=== PATIENT | male | born 1995 | race Caucasian/White ===

== ENCOUNTER 2017-10-17 11:17 | Emergency (ER) | payer BC, SELFPAY ==
[2017-10-17 11:17] VITALS: BP 141/94; PULSE 66; RESP 16; TEMP 36.6; O2SAT 98; BMI 19.8
--- NOTE | 2017-10-17 12:05 | ED.VISSUMM ---
- ER Visit Summary Date of Service: 10/17/17 Chief Complaint: [Abdominal pain and vomiting] History of Present Illness: The patient is a 22 M [who presents the emergency department with abdominal pain and vomiting it started yesterday. He has had about 10 episodes of vomiting. He has epigastric pain which feels like they are stomach acid sitting they are burning. His bowel movements have been normal although he has not had about bowel movement since this happened. No fevers or chills. He has been urinating normally. He does have a history of reflux and has had this but never so severe in the past and usually goes away on its own] Physical Examination: [] WN WD NAD PERRL EOMI MMM NECK supple and nontender, no masses RRR no murmur rub or gallop, no peripheral edema, symmetric radial pulses CTAB no respiratory distress ABDOMEN is soft gastric tenderness to palpation, normal bowel sounds, no distension, no rebound or guarding SKIN is warm and dry no rashes Alert and Oriented x3, CN II-XII in tact, no motor or sensory deficits, gait normal No lymphadenopathy Test Results: [] Emergency Department Course and Treatment: [She was given fluids Protonix and GI cocktail. Screening labs were obtained. Screening labs show T bili of 2.4. Patient is minimally improved after Protonix and GI cocktail. He was given morphine and felt much better. CTA was obtained because of the epigastric and right upper quadrant pain with a T bili of 2.4. Shows no evidence of biliary tract disease. Patient will be given Zofran Prilosec and sucralfate for home. He was given a referral to gastroenterology.] Treatment Plan: [] Disposition: [Discharge] Impression: [Gastritis] This note was generated with [employer] dictation software. It may contain incorrect words, spelling, and punctuation that were not noted in review of the chart prior to signing ED Disposition - Plan for ED Patient: Chief Complaint: Nausea/Vomiting Referrals: Laura Trammell MD [Primary Care Provider] -
[2017-10-17] MEDS: 0.9% Normal Saline 1,000 ML 1000 ML IV (12:47)
[2017-10-17] MEDS: Ondansetron 4 MG/2 ML Vial IV (12:47)
[2017-10-17 12:50] LABS: Absolute Lymphocyte Count 1.86 X10^3/ul (0.83-4.51); Absolute Neutrophil Count 6.5 X10^3/uL (2.0-7.7); Basophil# 0.01 X10^3/uL; Basophil% 0.1 % (0-1); Eosinophil# 0.02 X10^3/uL; Eosinophils% 0.2 % (0-5); Hematocrit 49.8 % (40-54); Hemoglobin 17.8 g/dl (13.0-16.5); Lymphocyte # 1.86 X10^3/ul (4.0); Lymphocyte % 19.9 % (19-41); Mean Corp Hgb Conc 35.7 g/gl (32-36); Mean Corpuscular Hgb 30.1 pg (27.0-32.0); Mean Corpuscular Volume 84.3 fL (80-94); Mean Platelet Vol. 9.1 fl (6.2-12.0); Monocyte# 0.94 X10^3/uL; Monocyte% 10.1 % (0-10); Neutrophil # 6.49 X10^3/uL (2.7-7.7); Neutrophil % 69.6 % (47-70); Platelet Count 238 K/mm3 (150-450); RBC Distribution Width CV 12.8 % (11.6-14.6); RBC Distribution Width SD 38.8 fl (35.1-43.9); Red Blood Count 5.91 M/mm3 (4.6-6.2); White Blood Count 9.3 K/mm3 (4.4-11.0)
[2017-10-17 12:51] LABS: POSITIVE COUNT NO; POSITIVE DIFFERENTIAL NO; POSITIVE MORPHOLOGY NO
[2017-10-17 13:00] LABS: ALB/GLOB Ratio 1.3 RATIO (0.9-2.4); AST(SGOT) 22 U/L (15-37); Alanine Aminotransfer ALT/SGPT 32 U/L (16-61); Alkaline Phosphatase 91 U/L (45-117); Anion Gap 9 (5-15); BUN 22 mg/dL (7-18); BUN/Creat Ratio 20.4 RATIO (10-20); Calcium,Total 9.8 mg/dL (8.5-10.1); Chloride 94 mmol/L (98-107); Creatinine, Serum 1.08 mg/dL (0.70-1.30); EST Glomerular Filtration Rate 91 mL/min (>60); Est Glom Filt Rate - Afr Amer 110 mL/min (>60); Estimated Creatinine Clearance 103.25 ml/min; Globulin 3.8 g/dL (2.2-4.2); Glucose 93 mg/dL (74-106); Lipase 93 U/L (73-393); Potassium 3.7 mmol/L (3.5-5.1); Protein, Total 8.8 g/dL (6.4-8.2); Sodium Level 134 mmol/L (136-145)
--- NOTE | 2017-10-17 13:12 | CT_ITS ---
STUDY: CT ABDOMEN AND PELVIS WITH CONTRAST REASON FOR EXAM: Male, 22 years old. Nausea/vomiting RADIATION DOSAGE (If Supplied By Facility): CTDIvol = ( 9.09 ) mGy, DLP = ( 318.50 ) mGycm TECHNIQUE: Transaxial images were obtained from the dome of the diaphragm to the symphysis pubis with oral contrast. 100 ml of Isovue 300 contrast was administered. Sagittal and coronal images were reconstructed. Individualized dose optimization techniques were used for this CT. COMPARISON: None. FINDINGS: The visualized lung bases are unremarkable. The visualized portions of the heart are within normal limits. Normal liver. Normal gallbladder and extrahepatic biliary system. Normal spleen. Normal pancreas. Normal bilateral adrenal glands. Normal right kidney. Normal left kidney. Normal visualized stomach. Normal small intestine. Normal colon. The appendix is visualized and appears normal. Appendix best seen on coronal image 59 Normal abdominal aorta. Normal inferior vena cava. Normal retroperitoneum. Normal urinary bladder. Normal abdominal wall. Normal osseous structures. CT/Abdomen/Pelvis W IV Cont ONLY IMPRESSION: No suspicious solid organ abnormality No CT evidence of an acute inflammatory process, normal appendix visualized. No free intraperitoneal fluid, air, or suspicious adenopathy Electronically Signed: Jose Plasencia MD at 14:13 EDT , Service support ,
[2017-10-17 13:37] VITALS: BP 135/80; PULSE 72; RESP 14; O2SAT 99
[2017-10-17] MEDS: Morphine 4 MG/ML Syringe IV (14:09)
[2017-10-17 15:03] VITALS: BP 137/80; PULSE 70; RESP 14; O2SAT 99
--- NOTE | 2017-10-17 15:14 | ED.DEP ---
ED Disposition - Plan for ED Patient: Chief Complaint: Nausea/Vomiting Instructions: ED PUD Vs Gastritis Prescriptions: Ondansetron [Zofran Odt] 4 mg PO Q8H PRN PRN #10 tablet PRN Reason: Nausea Omeprazole [Prilosec] 20 mg PO BID #14 capsule Sucralfate [Carafate] 1 gm PO 4X/DAY #500 ml Referrals: Rafi Aggarwal MD [NON-STAFF] - 1-2 Weeks Mook Moss MD [NON-STAFF] - 1-2 Weeks
[2017-10-17 15:35] VITALS: BP 126/78; PULSE 75; RESP 14; O2SAT 99
== END 2017-10-17 15:39 | disposition home or self-care (01) ==
PROVIDERS: Emergency Provider Emergency Medicine; Family Provider Pediatrics; PCP Pediatrics
DX: K29.70 Gastritis, unspecified, without bleeding (principal); K21.9 Gastro-esophageal reflux disease without esophagitis; J45.909 Unspecified asthma, uncomplicated; Z72.0 Tobacco use
CPT/HCPCS: 74177; 80053; 83690; 85025; 96365; 96374; 96375; 99283; Q9967; A4216; J2405; J3490

== ENCOUNTER 2018-10-11 14:04 | Emergency (ER) | payer BC, SELFPAY ==
[2018-10-11 14:05] VITALS: BP 126/73; PULSE 131; RESP 24; TEMP 36.6; O2SAT 96; BMI 21.7
--- NOTE | 2018-10-11 14:22 | ED.RN ---
PT ARRIVES TO ER IN [facility]IN[facility]. PT IS CURRENTLY BEING COOPERATIVE AND IS DOZING OFF INTERMITTENTLY. ORIENTED PT TO SURROUNDINGS, INFORMED PT OF PLAN OF CARE. PT IS RESTLESS. OFFICERS REMAIN AT BEDSIDE.
[2018-10-11] MEDS: 0.9% Normal Saline 1,000 ML 999 ML IV ×2 (14:28→15:25)
[2018-10-11] MEDS: LORazepam 2 MG/ML Syringe 1 MG IV (14:28)
[2018-10-11 14:34] LABS: Absolute Lymphocyte Count 1.88 X10^3/uL (0.83-4.51); Absolute Neutrophil Count 10.6 X10^3/uL (2.0-7.7); Basophil# 0.02 X10^3/uL; Basophil% 0.1 % (0-1); Eosinophil# 0.15 X10^3/uL; Eosinophils% 1.1 % (0-5); Hematocrit 43.5 % (40-54); Hemoglobin 14.4 g/dL (13.0-16.5); Lymphocyte # 1.88 X10^3/ul (4.0); Lymphocyte % 13.9 % (19-41); Mean Corp Hgb Conc 33.1 g/dL (32-36); Mean Corpuscular Hgb 29.1 pg (27.0-32.0); Mean Corpuscular Volume 88.1 fL (80-94); Monocyte# 0.79 X10^3/uL; Monocyte% 5.8 % (0-10); NRBC Flagged by Analyzer 0 % (0-5); Neutrophil # 10.59 X10^3/uL (2.7-7.7); Neutrophil % 78.1 % (47-70); Platelet Count 278 K/mm3 (150-450); RBC Distribution Width CV 12.5 % (11.6-14.6); RBC Distribution Width SD 40.4 fl (35.1-43.9); Red Blood Count 4.94 M/mm3 (4.6-6.2); White Blood Count 13.6 K/mm3 (4.4-11.0)
[2018-10-11 15:04] LABS: Anion Gap 19 (5-15); BUN 19 mg/dL (7-18); Calcium,Total 9.2 mg/dL (8.5-10.1); Chloride 107 mmol/L (98-107); Creatinine, Serum 1.58 mg/dL (0.70-1.30); EST Glomerular Filtration Rate 58 mL/min (>60); Est Glom Filt Rate - Afr Amer 70 mL/min (>60); Estimated Creatinine Clearance 79.77 ml/min; Glucose 110 mg/dL (74-106); Potassium 3.7 mmol/L (3.5-5.1); Sodium Level 140 mmol/L (136-145)
[2018-10-11 15:09] LABS: Alcohol, Blood (Medical)-Serum < 3.0 mg/dL
[2018-10-11 15:26] VITALS: BP 117/52; PULSE 105; RESP 17; O2SAT 95
--- NOTE | 2018-10-11 15:59 | ED.DCSUM_ITS ---
- ER Visit Summary Date of Service: 10/11/18 Chief Complaint: Drug abuse History of Present Illness: The patient is a [address] Trammell. He reports that he snorted a substance that he thought was heroin at approximately noon. Mother reports that he has been through rehab 3 times. The last of these was in June in [place]. He has not used for the past 2 to 3 weeks. Mother reports the patient was very agitated and fighting and she called EMS. Patient was very combative on their arrival and multiple police officers arrived to help restrain him. He was given 5 mg of Haldol IM without improvement. He then had an IV placed was given 2.5 mg of Versed IV and is now resting more comfortably. Review of systems: General: No fever, chills, cold sweats. Cardiovascular: No chest pain, palpitations. Respiratory: No cough, shortness of breath, dyspnea on exertion. Gastrointestinal: No abdominal pain, nausea, vomiting, diarrhea, melena, or hematochezia. Genitourinary: No dysuria, frequency, hematuria. Skin: No rash. Neuro: No headache, numbness, weakness. Physical Examination: Vitals: 97.9, 126/73, 131, 24, 96% on room air which is not hypoxic. General: Well-nourished and well-developed. Diaphoretic. Head: Normocephalic atraumatic. Neck: Supple, no lymphadenopathy. No JVD. Nontender. Cardiovascular: Tachycardic regular rhythm. No murmurs. Respiratory: No respiratory distress. Clear to auscultation bilaterally. Abdominal: Soft, nontender, nondistended, normal bowel sounds. No guarding, rebound, or peritoneal signs. Back: Nontender. Extremities: Nontender, no edema. No track duke. Skin: Normal color, no rash. Neurologic: Alert and oriented ? 2. Clearly intoxicated. Moves all extremities well. Test Results: CBC shows a white count of 13.6 with 78 segmented neutrophils and 14 lymphocytes. Chem-7 shows a bicarb of 14, BUN of 19, creatinine 1.58, glucose of 110. Alcohol is negative. Patient has not been able to give a urine sample for a tox screen yet. Emergency Department Course and Treatment: Patient was given a milligram of Ativan IV prior to the Versed wearing off. He was given 2 L of normal saline. His heart rate has decreased from the 130s down to 105. He is resting comfortably. I suspect that the patient's white count and low bicarbonate are a result of a stress reaction from the altercation with police and all of the fighting. Treatment Plan: Patient will be observed while whatever substance he snorted wears off. This clearly was not an opiate. I suspected that it may have been a bath salt. He will be discharged with instructions to follow-up with 180 as soon as possible. Disposition: Pending Impression: 1. Drug abuse. This note was generated with [employer] dictation software. It may contain incorrect words, spelling, and punctuation that were not noted in review of the chart prior to signing ED Disposition - Plan for ED Patient: Instructions: Drug Abuse Referrals: [facility] [STAFF PHYSICIAN] - As soon as possible
[2018-10-11 16:19] VITALS: BP 116/58; PULSE 94; RESP 18; O2SAT 97
[2018-10-11 18:06] LABS: Anion Gap 6 (5-15); BUN 20 mg/dL (7-18); BUN/Creat Ratio 16.1 RATIO (10-20); Calcium,Total 8.3 mg/dL (8.5-10.1); Chloride 109 mmol/L (98-107); Creatinine, Serum 1.24 mg/dL (0.70-1.30); EST Glomerular Filtration Rate 77 mL/min (>60); Est Glom Filt Rate - Afr Amer 93 mL/min (>60); Estimated Creatinine Clearance 101.64 ml/min; Glucose 82 mg/dL (74-106); Potassium 3.8 mmol/L (3.5-5.1); Sodium Level 139 mmol/L (136-145)
[2018-10-11 19:01] VITALS: BP 135/99; PULSE 112; RESP 19; O2SAT 98
[2018-10-11 19:33] LABS: Amphetamine Urine VISTA POSITIVE (<1000 ng/mL); Barbiturate Urine VISTA NEGATIVE (< 200 ng/mL); Benzodiazepine Urine VISTA POSITIVE (< 200 ng/mL); Cocaine Urine VISTA NEGATIVE (< 300 ng/mL); Ecstacy Urine VISTA NEGATIVE (< 500 ng/mL); Methadone Urine VISTA NEGATIVE (< 300 ng/mL); PCP Urine VISTA NEGATIVE (< 25 ng/mL); THC Urine VISTA POSITIVE (< 50 ng/mL); Vista UDS pH Range 5
[2018-10-11 20:12] VITALS: BP 147/86; PULSE 99; RESP 17; O2SAT 100
[2018-10-11 20:43] VITALS: BP 147/96; PULSE 96; RESP 18; O2SAT 98
--- NOTE | 2018-10-11 20:44 | ED.RN ---
PT AND FAMILY GIVEN WRITTEN AND VERBAL DISCHARGE INSTRUCTIONS. PT VERBALIZES UNDERSTANDING AND DENIES ANY FURTHER QUESTIONS. PT ENCOURAGED TO STOP DOING DRUGS. PT TO FOLLOW UP WITH 180. IV DD/C AND COVERED WITH 2X2 GAUZE AND PAPER TAPE. PT AMBULATES OUT OF DEPT AFTER RECEIVING PAPER SCRUB TOP.
== END 2018-10-11 20:47 | disposition home or self-care (01) ==
PROVIDERS: Emergency Medicine; Emergency Provider Emergency Medicine; Family Provider Physician Assistant; PCP Physician Assistant
DX: F19.10 Other psychoactive substance abuse, uncomplicated (principal); Z72.0 Tobacco use; J45.909 Unspecified asthma, uncomplicated
CPT/HCPCS: 80048; 80307; 80320; 85025; 96361; 96374; 99285; J7030; A4216; G0480

== ENCOUNTER 2019-10-12 10:20 | Emergency (ER) | payer SELFPAY ==
[2019-10-12 10:21] VITALS: BP 126/76; PULSE 100; RESP 18; TEMP 36.3; O2SAT 97; BMI 22.1
--- NOTE | 2019-10-12 10:40 | ED.DCSUM_ITS ---
History of Present Illness Chief Complaint: Dental Informant: Patient Narrative: Presents with dental pain which he has had for about a month. He was initially seen by his dentist and placed on Augmentin 1 month ago. He states that his tooth did improve but he never made a follow-up appointment to have his crown fixed. He stated over the last 2 days that his tooth is now hurting more and he has some facial swelling. He did not call his dentist. He has not had a fever. He has no trouble swallowing or breathing. Past Medical History - Allergies and Home Meds Allergies/Adverse Reactions: Allergies amoxicillin trihydrate [From Augmentin] Allergy (Verified 10/12/19 10:22) Rash potassium clavulanate [From Augmentin] Allergy (Verified 10/12/19 10:22) Rash Primary Care Physician: Stacy Gomez PA [Primary Care Provider] - Prior records reviewed: Yes Surgical History: noncontributory Smoking Status: Current every day smoker Alcohol: None Drugs: None Review of Systems General: Denies: Chills, Fever Eyes: Denies: Visual changes - bilaterally, Diplopia ENT: Reports: - - Dental pain is left-sided Cardiovascular: Denies: Chest pain Respiratory: Denies: Dyspnea Musculoskeletal: Denies: Myalgias, Arthralgias Skin: Reports: - - Swelling on the left side of the jaw adjacent to the mandible. Neurological: Denies: Headache Psych: Denies: Depression Physical Exam Vital Signs/Narrative: Vital Signs Temp Pulse Resp BP Pulse Ox 10/12/19 10:21 97.4 F L 100 18 126/76 H 97 General: Well nourished, No Acute Distress Head: Normocephalic, - - Swelling noted to the left side of the jaw adjacent to the mandible. ENT: - - Question tenderness of tooth #14. There is an area where crown was previously placed which is missing. There is no abscess surrounding the gums. Buccal mucosa is normal with exception of some mild swelling. Cardiovascular: Regular rate, Regular rhythm Respiratory: No distress Neurological: Alert, Oriented x3 Psychological: Normal affect Diagnostic/Tx/Re-eval - Medical Decision Making Patient presents with left-sided facial swelling. He does have what appears to be a dental infection where his crown is missing. He will be started on Augmentin again since he stated this helped him. He is to follow-up with his dentist so that he can get this issue resolved. He is given return precautions. Patient stable for discharge. ED Disposition - Plan for ED Patient: Disposition: Home or Assisted Living Instructions: Dental Abscess Prescriptions: Amox/Clavulanate Tablet [Augmentin Tablet] 875 mg PO Q12H #20 tab Prescription Printed Hydrocodone Bitart/Apap 5-325 [[place] 5MG-325MG] 1 tab PO Q4H PRN PRN 2 Days #7 tab PRN Reason: Pain Prescription Printed Referrals: Stacy Gomez PA [Primary Care Provider] -
[2019-10-12] MEDS: Amox/Clavulanate 875 MG Tablet PO (11:36)
[2019-10-12] MEDS: HYDROcodone Bitartrate/Apap 5/325 Tablet PO (11:36)
[2019-10-12 11:38] VITALS: PULSE 87; RESP 16; O2SAT 99
== END 2019-10-12 11:41 | disposition home or self-care (01) ==
LOC: ED 11:34
PROVIDERS: Emergency Provider Student in an Organized Health Care Education/Training Program; PCP Physician Assistant
DX: K04.7 Periapical abscess without sinus (principal); F17.200 Nicotine dependence, unspecified, uncomplicated
CPT/HCPCS: 99282

== ENCOUNTER 2020-05-21 15:37 | Emergency (ER) | payer BC, SELFPAY ==
[2020-05-21 15:39] VITALS: BP 124/88; PULSE 119; RESP 16; TEMP 36.8; O2SAT 97; BMI 20.5
--- NOTE | 2020-05-21 15:58 | ED.VISSUMM ---
- ER Visit Summary Date of Service: 05/21/20 Chief Complaint: Requesting detox History of Present Illness: The patient is a 24 M presenting requesting detox from fentanyl. Patient states he is using 1 g of fentanyl per day. He states he snorts fentanyl. He denies IV drug use. He states he also uses methamphetamine. His last use of fentanyl was about 30 hours ago. His last meth use was 5 days ago. He feels shaky with body aches. He has diarrhea. He denies vomiting. Denies fever or recent illness. Denies other complaints. Physical Examination: Vitals are stable. Patient is afebrile. Alert no acute distress. HEENT exam is unremarkable. Neck is supple. Lungs are clear and equal bilaterally. Heart is regular tachycardic Abdomen is soft nontender nondistended. No guarding or rebound Extremities are unremarkable. Skin is warm and dry. No focal neurologic deficit. Remainder of exam is unremarkable. Emergency Department Course and Treatment: Patient was given Zofran. Chemistries are unremarkable. Alcohol negative. Tox positive for cannabinoids. Covid is negative. Will discuss with hospitalist for admission. Just prior to admission, patient eloped from the emergency department. I attempted to call him and his phone number listed was inaccurate. Disposition: Elopement Impression: Opiate dependence, polysubstance abuse This note was generated with [employer] dictation software. It may contain incorrect words, spelling, and punctuation that were not noted in review of the chart prior to signing ED Disposition - Plan for ED Patient: Referrals: Stacy Gomez PA [Primary Care Provider] -
[2020-05-21] MEDS: Ondansetron ODT 4 MG Tablet 8 MG PO (16:30)
--- NOTE | 2020-05-21 16:35 | PCM.HP.STD ---
Problem List (1) Opiate addiction Status: Acute (2) Tobacco abuse Status: Acute (3) Opiate withdrawal Status: Acute History of Present Illness Date of Admission: 05/21/20 Mr. Pozo is a 24 year old WM with a past medical history of opiate addiction and tobacco abuse presented to emergency department [facility] on 05/21/2020 requesting detox from fentanyl. The patient reports he uses approximately 1 g of fentanyl per day intranasally. He denies any IV drug use. He states he also uses methamphetamines. His last fentanyl use was approximately a day and a half ago and his last meth use was approximately 5 days ago. He is complaining that he feels shaky and has body aches. He had some diarrhea. He denies vomiting. Upon review of his vital signs they reveal normothermia with mild tachycardia and mild diastolic hypertension respiratory rate and oxygen saturations are within normal limits on room air. Past Medical History Allergies amoxicillin trihydrate [From Augmentin] Allergy (Verified 05/21/20 16:12) Rash potassium clavulanate [From Augmentin] Allergy (Verified 05/21/20 16:12) Rash Home Medications: Ambulatory Orders Medication Instructions Recorded Venlafaxine HCl [Effexor] 20 mg PO DAILY 05/21/20 Surgical History: noncontributory Smoking Status: Current every day smoker Tobacco Use: Cigarettes - Physical Exam Vitals/I&O's: Vital Signs Temp Pulse Resp BP Pulse Ox 98.2 F 119 H 16 124/88 H 97 05/21/20 15:39 05/21/20 15:39 05/21/20 15:39 05/21/20 15:39 05/21/20 15:39 Oxygen Delivery Method Room Air Weight: 72.575 kg Body Mass Index (BMI) 20.5 Laboratory Results 05/21/20 16:15: Urine Opiates Screen Pending, Urine Methadone Screen Pending, Ur Barbiturates Screen Pending, Ur Phencyclidine Scrn Pending, Ur Amphetamines Screen Pending, U Methamphetamin-MDMA Pending, U Benzodiazepines Scrn Pending, Urine Cocaine Screen Pending, U Cannabinoids Screen Pending, Ur Drug Screen Comment 05/21/20 16:20: Sodium Pending, Potassium Pending, Chloride Pending, Carbon Dioxide Pending, Anion Gap Pending, BUN Pending, Creatinine Pending, Est GFR (MDRD) Af Amer Pending, Est GFR (MDRD) Non-Af Pending, BUN/Creatinine Ratio Pending, Glucose Pending, Calcium Pending, Total Bilirubin Pending, AST Pending, ALT Pending, Alkaline Phosphatase Pending, Total Protein Pending, Albumin Pending 05/21/20 16:20: Ethyl Alcohol Pending Assessment/Plan All Active Problems Opiate addiction (Acute) Tobacco abuse (Acute) Opiate withdrawal (Acute) Acute opiate withdrawal -Suboxone taper -Supportive medication -180 consultation Polysubstance abuse -See above for opiates -Last meth use was approximately 5 days ago -Review of his previous tox screens reveal positivity for benzodiazepines and THC as well as meth and opiates Tobacco abuse -Nicotine patch 21 mcg daily -Recommend cessation DVT prophylaxis -Early ambulation CODE STATUS -Full code
[2020-05-21 16:56] LABS: ALB/GLOB Ratio 1.2 RATIO (0.9-2.4); AST(SGOT) 19 U/L (15-37); Alanine Aminotransfer ALT/SGPT 25 U/L (16-61); Alkaline Phosphatase 100 U/L (45-117); Anion Gap 8 (5-15); BUN 19 mg/dL (7-18); BUN/Creat Ratio 20.7 RATIO (10-20); Calcium,Total 9.1 mg/dL (8.5-10.1); Chloride 108 mmol/L (98-107); Creatinine, Serum 0.92 mg/dL (0.70-1.30); EST Glomerular Filtration Rate 107 mL/min (>60); Est Glom Filt Rate - Afr Amer 130 mL/min (>60); Estimated Creatinine Clearance 127.09 ml/min; Globulin 3.4 g/dL (2.2-4.2); Glucose 112 mg/dL (74-106); Potassium 4.3 mmol/L (3.5-5.1); Protein, Total 7.4 g/dL (6.4-8.2); Sodium Level 141 mmol/L (136-145)
[2020-05-21 17:04] LABS: Alcohol, Blood (Medical)-Serum < 3.0 mg/dL
[2020-05-21 17:05] LABS: Amphetamine Urine VISTA NEGATIVE (<1000 ng/mL); Barbiturate Urine VISTA NEGATIVE (< 200 ng/mL); Benzodiazepine Urine VISTA NEGATIVE (< 200 ng/mL); Cocaine Urine VISTA NEGATIVE (< 300 ng/mL); Ecstacy Urine VISTA NEGATIVE (< 500 ng/mL); Methadone Urine VISTA NEGATIVE (< 300 ng/mL); PCP Urine VISTA NEGATIVE (< 25 ng/mL); THC Urine VISTA POSITIVE (< 50 ng/mL); Vista UDS pH Range 6
== END 2020-05-21 17:35 | disposition home or self-care (01) ==
LOC: ED 16:23
PROVIDERS: Emergency Provider Emergency Medicine; PCP Physician Assistant
DX: F11.20 Opioid dependence, uncomplicated (principal); F15.90 Other stimulant use, unspecified, uncomplicated
CPT/HCPCS: 36415; 80053; 80307; 82077; 87426; 99281

== ENCOUNTER 2021-04-19 12:42 | Inpatient (IN) | payer BC, SELFPAY ==
[2021-04-19 12:43] VITALS: BP 152/105; PULSE 105; RESP 16; TEMP 36.6; O2SAT 100; BMI 23.7
--- NOTE | 2021-04-19 13:05 | EDS_ITS ---
HPI History of Present Illness Chief Complaint: Substance Abuse Informant: patient Onset/Context/Timing Onset: - (5 to 6 years) Context: Gradual Onset Timing: Continuous Worsened by: Nothing Relieved by: Nothing Associated Symptoms Associated Symptoms: Positive for vomiting* and palpatations; Negative for diarrhea*, fever*, rash*, seizure, tremor, suicidal ideation and homicidal ideation Narrative Narrative: Patient presents requesting detox from heroin and fentanyl. Patient states he snorts approximately 1/2 g/day. Patient states his last use was yesterday. Patient states he has been using for the past 5 to 6 years. Patient states he has never been through detox before. Patient admits to some nausea and vomiting. Patient denies any fevers. Patient denies any shortness of breath. Patient denies any seizures or tremors. Patient admits to some heart palpitations. Patient denies any suicidal homicidal ideations. [facility] Medical History Asthma Tobacco abuse Medical History no medical history Allergy/AdvReac Type Severity Reaction Status Date / Time amoxicillin trihydrate Allergy Rash Verified 04/19/21 12:46 [From Augmentin] potassium clavulanate Allergy Rash Verified 04/19/21 12:46 [From Augmentin] Family History (Updated 04/19/21 @ 13:[address] Radha Gabriel DO) Brother Hemophilia Father Diabetes Surgical History History of tonsillectomy Surgical History no surgical history no surgical history Social History (Updated 04/19/21 @ 13:[address] Radha Gabriel DO) Smoking Status: Current every day smoker tobacco type: cigarettes alcohol intake: current alcohol intake frequency: holidays/special occasions only substance use type: marijuana, heroin, opiates and other details: Fentanyl ROS ROS ED Constitutional Constitutional ED: Denies chills or fever(s) Eyes Eyes: Denies blurry vision or change in vision ENT ENT ED: Denies rhinorrhea or sore throat Cardiovascular Cardiovascular: Reports palpitations; Denies chest pain Respiratory/Chest Respiratory/Chest: Reports dyspnea; Denies cough Gastrointestinal Gastrointestinal: Reports abdominal pain, nausea and vomiting; Denies diarrhea Genitourinary Genitourinary ED: Denies dysuria or hematuria Musculoskeletal Musculoskeletal: Reports back pain; Denies neck pain Integumentary Denies abscess or rash Neurologic Neurologic: Reports headache(s); Denies weakness Allergic/Immunologic Allergic/Immunologic ED: Denies mouth swelling or urticaria EXAM Physical Exam Const Vital Signs: 04/19/21 12:43 Temperature 97.9 F Temperature Source Temporal Pulse Rate 105 H Respiratory Rate 16 Blood Pressure 152/105 H Blood Pressure Mean 120 Pulse Ox 100 Oxygen Delivery Method Room Air Positive well nourished and well developed General Appearance ED: well developed HEENT Reports moist mucous membranes Neck supple and no JVD Resp normal respiratory effort and clear to auscultation bilaterally Cardio regular rate, regular rhythm and no murmurs GI normal to inspection, nondistended, normoactive bowel sounds, soft to palpation and non-tender Palpation: soft Extremity normal to inspection General Extremety ED: Negative for edema or tenderness General Extremity: Negative for edema Neuro oriented x3, CN's II-XII intact bilaterally and no sensory deficits noted Sensorium / Orientation: alert Motor Exam: strength 5/5 throughout Psych mental status grossly normal Skin no rashes or lesions noted MDM MDM MDM Narrative Medical decision making narrative: Basic labs were obtained and were essentially within normal limits. Urine toxicology screen was positive for cannabinoids. Case was discussed with the hospitalist. She will be down to evaluate the patient for admission. Patient understands and is agreeable with the plan. All questions were answered. Lab Data Labs: Laboratory Results - last 24 hr 04/19/21 04/19/21 13:25 13:25 WBC 8.4 RBC 5.28 Hgb 14.9 Hct 44.7 MCV 84.7 MCH 28.2 MCHC 33.3 RDW Std Deviation 42.4 RDW Coeff of Cecilio 13.7 Plt Count 365 MPV 8.9 Immature Gran % (Auto) 0.400 Neut % (Auto) 77.6 H Lymph % (Auto) 15.2 L Newton % (Auto) 5.6 Eos % (Auto) 1.0 Baso % (Auto) 0.2 Absolute Neuts (auto) 6.5 Absolute Lymphs (auto) 1.27 Nucleated RBC % 0 Ur Drug Screen Comment Treatment and Re-Evaluation Vital Sign Attestation:: Vital signs were reviewed prior to admission. They are stable. Discharge Plan Dx/Rx/DC Orders Clinical Impression: Opiate withdrawal Disposition Disposition: Acute Care Hospital [facility] Discharge Date/Time: 04/19/21 15:14
--- NOTE | 2021-04-19 13:10 | CM.ED ---
DARIN Note Referral Source: Case Find Referral Reason: TAMARA WEBSTER met with patient. He reports he is interested in detox through [facility]. Patient has been using fentanyl/heroin and last use was yesterday. Patient used 1 gram yesterday. Patient is in a sober living house through [facility] and got there yesterday. Patient plans to return to [facility] from detox. Patient said that he had a counselor at [facility] but has not seen them for awhile.. Patient verbalized understanding. DARIN called [facility] and advised her of patient's admission to [facility] Plan: [facility] Admission Jenise JOHNSON
--- NOTE | 2021-04-19 13:20 | NURSING ---
DR VIJI COREY
--- NOTE | 2021-04-19 13:22 | HP.PCM.HOS_ITS ---
HPI - General General Date of Admission: 04/19/21 Date of Service: 04/19/21 Chief Complaint: Acute opiate withdrawal HPI Narrative BRYAN LUNDBERG, is a 25 M who presented to with hospital on 04/19/2021 with a request for opiate detox. The patient indicates that he snorts fentanyl and heroin and uses approximately 1/2 g daily. His last use was yesterday morning. He states has been using for approximately 15 years and went through detox in 2017 at which time he had about 5 to 6 months of sobriety. He did inpatient rehab at that time. He currently is having some loose stools, anxiety, myalgias, nausea, mild tachycardia and elevated blood pressure. He states he is never used IV drugs. He also admits to a smoking about half a pack of cigarettes a daily and using marijuana periodically. His vital signs in emergency department show that he was afebrile with mild tachycardia and that he had elevated blood pressure. His respiratory rate was normal and his oxygen saturation was 100% on room air. His CBC was unremarkable. His UA was unremarkable. His CMP and tox screen were pending on admission. Given his request for detox the emergency department physician requested admission and he will be admitted to an [place] [address] for opiate detox. [facility] Medical History (Updated 04/19/21 @ 13:[address] Radha Gabriel DO) Asthma Tobacco abuse Medical History no medical history Allergy/AdvReac Type Severity Reaction Status Date / Time amoxicillin trihydrate Allergy Rash Verified 04/19/21 12:46 [From Augmentin] potassium clavulanate Allergy Rash Verified 04/19/21 12:46 [From Augmentin] Family History (Updated 04/19/21 @ 13:[address] Radha Gabriel DO) Brother Hemophilia Father Diabetes Surgical History (Updated 04/19/21 @ 13:[address] Radha Gabriel DO) History of tonsillectomy Surgical History no surgical history Social History (Updated 04/19/21 @ 13:[address] Radha Gabriel DO) Smoking Status: Current every day smoker tobacco type: cigarettes Smoking packs per day: 0.5 Smoking cigarettes per day: 10.0 alcohol intake: current alcohol intake frequency: holidays/special occasions only substance use type: marijuana, heroin, opiates and other details: Fentanyl ROS Constitutional Constitutional: Reports chills and malaise; Denies anorexia, change in weight, fatigue, fever(s), night sweats, weakness or other Eyes Eyes: Denies blurry vision, change in eye color, change in vision, discharge from eye(s), double vision, erythema, eye pain, loss of vision or other ENT HEENT: Denies abnormal hearing, dysphagia, ear pain, epistaxis, headache(s), hearing loss, nasal congestion, nasal discharge, post nasal drip, sinus pressure, sore throat or other Cardiovascular Cardiovascular: Denies chest pain, claudication, dyspnea on exertion, edema, lightheadedness, orthopnea, palpitations, paroxysmal nocturnal dyspnea, rapid heart rate, syncope or other Respiratory/Chest Respiratory/Chest: Denies cough, dyspnea, excessive phlegm production, hemoptysis, productive cough, shortness of breath at rest, shortness of breath with exertion, wheezing or other Gastrointestinal Gastrointestinal: Reports loose stools and nausea; Denies abdominal pain, coffee ground emesis, constipation, diarrhea, dyspepsia, hematemesis, hematochezia, melena, vomiting or other Genitourinary Genitourinary: Denies burning urination, difficulty urinating, dysuria, hematuria, nocturia, urinary frequency, urinary hesitancy, urinary incontinence, urinary urgency or other Musculoskeletal Musculoskeletal: Reports myalgias; Denies arthralgias, back pain, joint pain, joint stiffness, joint swelling, neck pain or other Neurologic Neurologic: Denies abnormal gait, abnormal speech, confusion, disequilibrium, di zziness, focal weakness, headache(s), numbness, paresthesias, seizure-like activity, seizures, syncope, tingling, tremor(s) or other Psychiatric Psychiatric: Reports anxiety; Denies depression, homicidal ideation, suicidal ideation or other Endocrine Endocrinology: Denies change in body appearance, cold intolerance, excessive sweating, heat intolerance, polydipsia, polyuria or other Hematologic/Lymphatic Hematologic/Lymphatic: Denies anemia, easy bleeding, easy bruising, lymphadenopathy or other Allergic/Immunologic Allergic/Immunologic: Denies rhinitis, hives, eczemia, asthma or other Vital Signs Vital Signs Vital Signs: 04/19/21 12:43 Temperature 97.9 F Temperature Source Temporal Pulse Rate 105 H Respiratory Rate 16 Blood Pressure 152/105 H Blood Pressure Mean 120 Pulse Ox 100 Oxygen Delivery Method Room Air Weight Weight: 81.647 kg Body Mass Index (BMI) 23.7 Physical Exam Const alert, oriented x3, no apparent distress, average body habitus, healthy appearing and well nourished Constitutional Narrative: Very pleasant young white male lying in bed, patient appears nontoxic General Appearance: cooperative HEENT normocephalic, head/scalp atraumatic, hearing grossly normal bilaterally and moist oral mucous membranes Resp normal respiratory effort, no retractions, no use of accessory muscles and clear to auscultation bilaterally Auscultation: Negative for crackles, rales, rhonchi or wheezes Cardio regular rhythm, S1 normal heart sound, S2 normal heart sound, no murmurs, no rub, no gallops, no clicks and no JVD Cardio Narrative: Mild tachycardia GI normal to inspection, nondistended, normoactive bowel sounds, soft to palpation, non-tender and non-distended Extremity no clubbing, cyanosis or edema Neuro oriented x3, CN's II-XII intact bilaterally and moves all extremities Sensorium / Orientation: awake and alert Speech: speech normal Motor Exam: strength 5/5 throughout Psych affect normal Psych Narrative: Very pleasant Results Lab / Micro Data Attestation: I reviewed the patient's lab results. Assessment & Plan Assessment/Plan (1) Opiate withdrawal: (2) Opiate addiction: (3) Tobacco abuse: (4) Elevated blood pressure reading: (5) Tachycardia: PLAN: Acute opiate withdrawal -Patient has about a 15-year history of intranasal opiate use -Patient did have a period of sobriety after a bout of 5-month rehab stint in 2017 -This is approximately 1/2 g of fentanyl/heroin daily -Last use was yesterday morning 04/18/2021 -start buprenorphine taper -Supportive medications -180 consultation Elevated blood pressure -Suspect related to acute withdrawal -Continue to monitor Tachycardia -Suspect related to create withdrawal -Continue to monitor Tobacco abuse -Patient smokes 1/2 to 1 pack of cigarettes daily -Nicotine replacement has been ordered -Recommend cessation DVT prophylaxis -Early ambulation protocol -Low risk CODE STATUS -Full code Charges/Coding Visit Charges Inpatient E&M: 39503 Init Hosp L2
[2021-04-19 13:31] LABS: Bacteria 0 SEEN /hpf (None Seen); Mucous, Urine 0 SEEN /hpf (<or=2+); Red Blood Cells-Urine 0 SEEN /hpf (0-5); Squamous Epithelial Cells - UA 0 SEEN /hpf (0-5); White Blood Cells 0 SEEN /hpf (0-5)
[2021-04-19 13:33] LABS: Absolute Lymphocyte Count 1.27 X10^3/uL (0.83-4.51); Absolute Neutrophil Count 6.5 X10^3/uL (2.0-7.7); Basophil# 0.02 X10^3/uL; Basophil% 0.2 % (0-1); Color, Urine Yellow (Yellow); Eosinophil# 0.08 X10^3/uL; Glucose, Dipstick Normal (Normal); Hematocrit 44.7 % (40-54); Hemoglobin 14.9 g/dL (13.0-16.5); Ketone-Dipstick Negative (Negative); Leukocyte Esterase-Dipstick Negative /ul (Negative); Lymphocyte # 1.27 X10^3/ul (0.83-4.51); Lymphocyte % 15.2 % (19-41); Mean Corp Hgb Conc 33.3 g/dL (32-36); Mean Corpuscular Hgb 28.2 pg (27.0-32.0); Mean Corpuscular Volume 84.7 fL (80-94); Mean Platelet Vol. 8.9 fl (6.2-12.0); Monocyte# 0.47 X10^3/uL; Monocyte% 5.6 % (0-10); NRBC Flagged by Analyzer 0 % (0-5); Neutrophil % 77.6 % (47-70); Nitrite-Dipstick Negative (Negative); Occult Blood-Urine Negative /ul (Negative); Platelet Count 365 K/mm3 (150-450); Protein-Dipstick Negative (Negative); RBC Distribution Width CV 13.7 % (11.6-14.6); RBC Distribution Width SD 42.4 fl (35.1-43.9); Red Blood Count 5.28 M/mm3 (4.6-6.2); Urine Bilirubin Dipstick Negative (Negative); Urine Clarity Cloudy (Clear); Urine Urobilinogen Normal (Normal); White Blood Count 8.4 K/mm3 (4.4-11.0)
--- NOTE | 2021-04-19 13:43 | NURSING ---
MED SURG VIJI OPIATE WITHDRAWAL
[2021-04-19 13:44] LABS: Amorphous Sediment 2+
[2021-04-19 13:53] LABS: ALB/GLOB Ratio 1.1 RATIO (0.9-2.4); AST(SGOT) 19 U/L (15-37); Alanine Aminotransfer ALT/SGPT 27 U/L (16-61); Albumin, Serum 4.2 g/dL (3.2-5.0); Alkaline Phosphatase 92 U/L (45-117); Anion Gap 4 (5-15); BUN 15 mg/dL (7-18); BUN/Creat Ratio 16.7 RATIO (10-20); Calcium,Total 9.1 mg/dL (8.5-10.1); Chloride 107 mmol/L (98-107); EST Glomerular Filtration Rate 109 mL/min (>60); Est Glom Filt Rate - Afr Amer 132 mL/min (>60); Globulin 3.8 g/dL (2.2-4.2); Glucose 107 mg/dL (74-106); Potassium 4.2 mmol/L (3.5-5.1); Sodium Level 137 mmol/L (136-145)
[2021-04-19 13:56] LABS: Alcohol, Blood (Medical)-Serum < 3.0 mg/dL
[2021-04-19 13:58] LABS: Amphetamine Urine VISTA NEGATIVE (<1000 ng/mL); Barbiturate Urine VISTA NEGATIVE (< 200 ng/mL); Benzodiazepine Urine VISTA NEGATIVE (< 200 ng/mL); Cocaine Urine VISTA NEGATIVE (< 300 ng/mL); Ecstacy Urine VISTA NEGATIVE (< 500 ng/mL); Methadone Urine VISTA NEGATIVE (< 300 ng/mL); PCP Urine VISTA NEGATIVE (< 25 ng/mL); THC Urine VISTA POSITIVE (< 50 ng/mL); Vista UDS pH Range 7
[2021-04-19 15:14] VITALS: BP 132/70; PULSE 74; RESP 15; TEMP 36.6; O2SAT 99
[2021-04-19 15:18] VITALS: BMI 22.1
[2021-04-19 16:00] VITALS: BP 143/78; PULSE 71; RESP 18; TEMP 36.7; O2SAT 98
[2021-04-19] MEDS: Methocarbamol 750 MG Tablet 1500 MG PO (16:29)
[2021-04-19] MEDS: Gabapentin 300 MG Capsule PO (16:29)
[2021-04-19] MEDS: cloNIDine HCl 0.1 MG Tablet PO (16:29)
[2021-04-19] MEDS: Buprenorphine HCl 2 MG TAB.SUBL SL (16:42)
[2021-04-19 19:51] VITALS: BP 150/82; PULSE 92; RESP 18; TEMP 36.9; O2SAT 99
[2021-04-19] MEDS: hydrOXYzine PAM 25 MG Capsule 50 MG PO (22:28)
[2021-04-19] MEDS: traZODone 100 MG Tablet PO (22:28)
[2021-04-20] VITALS: BP 128/63; PULSE 104; RESP 18; TEMP 36.6; O2SAT 98
[2021-04-20] MEDS: Buprenorphine HCl 2 MG TAB.SUBL SL ×4 (00:09→23:55)
[2021-04-20] MEDS: Methocarbamol 750 MG Tablet 1500 MG PO ×3 (00:09→20:51)
[2021-04-20 04:00] VITALS: BP 127/71; PULSE 94; RESP 18; TEMP 37.2; O2SAT 99
[2021-04-20] MEDS: cloNIDine HCl 0.1 MG Tablet PO ×2 (04:08→13:13)
--- NOTE | 2021-04-20 07:33 | PCM.PN.HOSP ---
Subjective Subjective Patient is a 25-year-old gentleman with history of opioid dependence presenting with acute opioid withdrawal Objective Data Objective Data Vital Signs: Vital Signs Temp Pulse Resp BP Pulse Ox 98.9 F 94 18 127/71 H 99 04/20/21 04:00 04/20/21 04:00 04/20/21 04:00 04/20/21 04:00 04/20/21 04:00 Oxygen Delivery Method Room Air Weight: 78.018 kg Body Mass Index (BMI) 22.1 Intake & Output: Intake and Output for Last 24 Hours 04/18/21 04/19/21 04/20/21 23:59 23:59 23:59 Intake Total 280 / 280 1999 Balance 280 / 280 1999 Lab / Micro Data Result Diagrams: 04/19/21 13:25 04/19/21 13:25 Labs: Laboratory Results - last 24 hr 04/19/21 13:25: WBC 8.4, RBC 5.28, Hgb 14.9, Hct 44.7, MCV 84.7, MCH 28.2, MCHC 33.3, RDW Std Deviation 42.4, RDW Coeff of Cecilio 13.7, Plt Count 365, MPV 8.9, Immature Gran % (Auto) 0.400, Neut % (Auto) 77.6 H, Lymph % (Auto) 15.2 L, [place] % (Auto) 5.6, Eos % (Auto) 1.0, Baso % (Auto) 0.2, Absolute Neuts (auto) 6.5, Absolute Lymphs (auto) 1.27, Nucleated RBC % 0 04/19/21 13:25: Sodium 137, Potassium 4.2, Chloride 107, Carbon Dioxide 26.0, Anion Gap 4 L, BUN 15, Creatinine 0.90, Estim Creat Clear Calc 141.80, Est GFR (MDRD) Af Amer 132, Est GFR (MDRD) Non-Af 109, BUN/Creatinine Ratio 16.7, Glucose 107 H, Calcium 9.1, Total Bilirubin 0.80, AST 19, ALT 27, Alkaline Phosphatase 92, Total Protein 8.0, Albumin 4.2, Globulin 3.8, Albumin/Globulin Ratio 1.1 04/19/21 13:25: Ethyl Alcohol < 3.0 04/19/21 13:25: Urine Color Yellow, Urine Clarity Cloudy, Urine pH 8.0, Ur Specific [place] 1.020, Urine Protein Negative, Urine Glucose (UA) Normal, Urine Ketones Negative, Urine Occult Blood Negative, Urine Nitrite Negative, Urine Bilirubin Negative, Urine Urobilinogen Normal, Ur Leukocyte Esterase Negative, Urine RBC 0 SEEN, Urine WBC 0 SEEN, Ur Squamous Epith Cells 0 SEEN, Amorphous Sediment 2+, Urine Bacteria 0 SEEN, Urine Mucus 0 SEEN 04/19/21 13:25: Urine Opiates Screen NEGATIVE, Urine Methadone Screen NEGATIVE, Ur Barbiturates Screen NEGATIVE, Ur Phencyclidine Scrn NEGATIVE, Ur Amphetamines Screen NEGATIVE, U Methamphetamin-MDMA NEGATIVE, U Benzodiazepines Scrn NEGATIVE, Urine Cocaine Screen NEGATIVE, U Cannabinoids Screen POSITIVE H, Ur Drug Screen Comment Physical Exam Narrative GENERAL: cooperative HEENT: Atraumatic; EYES; Anicteric, Normal Conjunctiva NECK; supple, normal thyroid, RESPIRATORY: Diminished to auscultation CARDIOVASCULAR: Regular S1 S2, GI: soft, normoactive bowel sounds, : No Renal angle tenderness; EXTREMITIES: No edema, no clubbing, MUSCULOSKELETAL: no muscle waisting NEURO: Awake; no lateralizing signs. SKIN: No Rash PSYCH; Flat affect Assessment & Plan Assessment/Plan (1) Opiate withdrawal: (2) Opiate addiction: (3) Elevated blood pressure reading: (4) Tachycardia: PLAN: Patient is a 25-year-old gentleman with history of opioid dependence presenting with acute opioid withdrawal 1. Acute opiate withdrawal ?Patient has been admitted to regular nursing floor currently undergoing medical stabilization using phenobarb taper 2. Elevated blood pressure on admission this was thought to be secondary to acute withdrawal plan is to continue with monitoring 3. Assessment tobacco dependence tobacco dependence - Counseled on cessation, offered nicotine patch for tobacco cravings 4. DVT prophylaxis ?Low risk did encourage ambulation Charges/Coding Visit Charges Inpatient E&M: 29480 Subs Hosp L2
[2021-04-20 07:58] VITALS: BP 121/73; PULSE 88; RESP 18; TEMP 36.8; O2SAT 100
[2021-04-20] MEDS: Ondansetron 8 MG Tablet PO (08:06)
[2021-04-20] MEDS: hydrOXYzine PAM 25 MG Capsule 50 MG PO ×3 (08:06→20:56)
--- NOTE | 2021-04-20 11:20 | ADDICTION ---
This commercial real estate underwriter met with PT to conduct ASAM, MSE, DUDIT assessments and to plan for d/c. PT A+Ox4 and participated actively. All assessments completed and placed in PT's chart. PT plans to f/u with [facility] for follow-up treatment services. [facility] will provide transportation post d/c from [facility].
[2021-04-20] MEDS: Gabapentin 300 MG Capsule PO (13:13)
[2021-04-20 13:18] VITALS: BP 142/71; PULSE 105; RESP 18; TEMP 36.9; O2SAT 99
--- NOTE | 2021-04-20 13:22 | CM.ED ---
DARIN received a call from Austin Wade.Austin stated he dropped off patient for detox yesterday and wanted to know if the patient was there. DARIN spoke to Addiction therapist, Nikko and there is no BENIGNO. DARIN called Austin and said that nothing could be communicated as there is no release on file. Jenise JOHNSON
--- NOTE | 2021-04-20 16:16 | ADDICTION ---
Pt was approved for [facility]. However the [facility] that accepts his insurance was in [place], [place]. Pt declined. BENIGNO was signed for [facility]. Pt was approved and will be picked up tomorrow at 10am. Message was left for mom to bring a weeks worth of clothing for pt to take with him.
[2021-04-20 17:00] VITALS: BP 130/92; PULSE 90; RESP 16; TEMP 36.6; O2SAT 99
[2021-04-20] MEDS: traZODone 100 MG Tablet PO (20:51)
[2021-04-20 21:00] VITALS: BP 153/86; PULSE 95; RESP 16; TEMP 37; O2SAT 100
[2021-04-21] MEDS: Buprenorphine HCl 2 MG TAB.SUBL SL (08:30)
--- NOTE | 2021-04-21 13:00 | PN_ITS ---
DATE OF SERVICE 04/21/2021 SUBJECTIVE OBJECTIVE GENERAL: cooperative HEENT: Atraumatic; EYES; Anicteric, Normal Conjunctiva NECK; supple, normal thyroid, RESPIRATORY: Diminished to auscultation CARDIOVASCULAR:? Regular S1 S2, GI:? soft, normoactive bowel sounds, : No Renal angle tenderness; EXTREMITIES:? No edema, no clubbing, MUSCULOSKELETAL:? no muscle wasting NEURO:? Awake;?no lateralizing signs. SKIN:? No Rash PSYCH; Flat?affect ASSESSMENT/PLAN Patient is a 25-year-old gentleman with history of opioid dependence presenting with acute opioid withdrawal 1.? Acute opiate withdrawal Patient has been admitted to regular nursing floor currently undergoing medical stabilization using Subutex taper 2.? Elevated blood pressure on admission this was thought to be secondary to acute withdrawal plan is to continue with monitoring 3. Tobacco dependence tobacco dependence - Counseled on cessation, offered nicotine patch for tobacco cravings 4. DVT prophylaxis Low risk did encourage ambulation
--- NOTE | 2021-04-22 08:27 | PCM.DC.SUM ---
Providers Date of Admission: 04/19/21 Date of Discharge: 04/21/21 Primary Care Physician: EVELYN Phan Reason For Visit: ACUTE OPIATE WITHDRAWAL Diagnosis Discharge Diagnosis (1) Opiate withdrawal: Status: Acute Code(s): F11.23 - Opioid dependence with withdrawal (2) Opiate addiction: Status: Acute Code(s): F11.20 - Opioid dependence, uncomplicated (3) Elevated blood pressure reading: Status: Acute Code(s): R03.0 - Elevated blood-pressure reading, without diagnosis of hypertension (4) Tachycardia: Status: Acute Code(s): R00.0 - Tachycardia, unspecified Plan: #1. Opiate withdrawal #2 opiate addiction Hospital Course Operations None Procedures None Summary of Care Provided Minutes Spent on Discharge: 31 Hospital Course: This 25-year-old white male presented to the emergency room at [facility] with a request for opiate detox. Patient stated that he snorts fentanyl and heroin and uses approximately half a gram a day. Patient stated that his last usage was the day prior to being seen in the emergency room. Patient admits to anxiety symptomology, myalgias, mild nausea, and increased heart rate. Examination in the ER revealed the patient was afebrile with a mild tachycardia he had slightly elevated blood pressure, CBC was unremarkable, UA was unremarkable, tox screen was positive for cannabinoids, and chemistry profile was unremarkable. Patient was admitted to [place] [address], orders were entered using the opiate addiction order set and basic addiction order set, patient was seen by addiction sexual assault social worker, arrangements were made for the patient to be set up with inpatient detox services at the time of discharge from the hospital. Patient had no untoward events during his hospitalization. On 04/21/2021, patient was seen and examined: On examination he appeared in good health and spirits. Vital signs as documented. Skin warm and dry and without overt rashes. Neck without JVD, neck was supple, trachea midline, thyroid was normal. Lungs clear bilaterally, normal air movement was noted. Heart exam notable for regular rhythm, normal sounds and absence of murmurs, rubs or gallops. Abdomen unremarkable and without evidence of organomegaly, masses, or abdominal aortic enlargement. Bowel sounds are present, abdomen is not distended. Extremities nonedematous, no cyanosis was noted, no clubbing was noted. Neuro: Cranial nerves II through XII are grossly intact, no focal motor deficits were noted, sensation to light touch and pinprick intact, motor exam 5/5 throughout. Psych: Patient is alert and oriented x3, he does not appear anxious or depressed, he does not appear agitated. Patient appears stable for discharge on 04/21/2021. Weight / BMI Weight Weight: 78.018 kg Body Mass Index (BMI) 22.1 ABG / Lab / Microbiology Data Result Diagrams: 04/19/21 13:25 04/19/21 13:25 Meaningful Use Info Meaningful Use Diagnoses (Choose all that apply): None applicable Discharge Plan Admission Admit Date/Time: 04/19/21 13:20 Attending Provider: Lupillo Littlejohn Primary Care Provider: Stacy Gomez Discharge Orders/Prescriptions Referrals / Follow Up: Stacy Gomez, PA [Primary Care Provider] - Disposition Disposition (needs filled in before D/C Order can be placed): Home, Self Care Charges/Coding Visit Charges Inpatient E&M: 24360 Disch Hosp
== END 2021-04-21 11:08 | disposition home or self-care (01) | DRG 897 ==
LOC: ED 13:36 → MS3 13:48
PROVIDERS: Admitting Provider Internal Medicine; Emergency Provider Emergency Medicine; PCP Physician Assistant; Visit Provider Internal Medicine
DX: F11.23 Opioid dependence with withdrawal (principal); F17.210 Nicotine dependence, cigarettes, uncomplicated; J45.909 Unspecified asthma, uncomplicated; R00.0 Tachycardia, unspecified; R03.0 Elevated blood-pressure reading, without diagnosis of hypertension
CPT/HCPCS: 80053; 80307; 81001; 82077; 85025; 99251; 99283; 99406; G0463

== ENCOUNTER 2022-02-19 20:07 | Emergency (ER) | payer MEDICAID, SELFPAY ==
[2022-02-19 20:08] VITALS: BP 137/94; PULSE 64; RESP 16; TEMP 36.4; O2SAT 98; BMI 19.3
[2022-02-19] MEDS: 0.9% Normal Saline 1,000 ML 1000 ML IV (21:03)
[2022-02-19] MEDS: Ondansetron 4 MG/2 ML Vial IV (21:03)
[2022-02-19 21:14] LABS: Absolute Lymphocyte Count 2.43 X10^3/uL (0.83-4.51); Absolute Neutrophil Count 12.7 X10^3/uL (2.0-7.7); Basophil# 0.03 X10^3/uL; Basophil% 0.2 % (0-1); Eosinophil# 0.01 X10^3/uL; Eosinophils% 0.1 % (0-5); Hematocrit 52.4 % (40-54); Lymphocyte # 2.43 X10^3/ul (0.83-4.51); Lymphocyte % 14.5 % (19-41); Mean Corp Hgb Conc 34.7 g/dL (32-36); Mean Corpuscular Volume 80.7 fL (80-94); Mean Platelet Vol. 9.2 fl (6.2-12.0); Monocyte# 1.53 X10^3/uL; Monocyte% 9.1 % (0-10); NRBC Flagged by Analyzer 0 % (0-5); Neutrophil # 12.68 X10^3/uL (2.7-7.7); Neutrophil % 75.6 % (47-70); POSITIVE DIFFERENTIAL YES; Platelet Count 482 K/mm3 (150-450); RBC Distribution Width CV 13.9 % (11.6-14.6); RBC Distribution Width SD 39.6 fl (35.1-43.9); Red Blood Count 6.49 M/mm3 (4.6-6.2); White Blood Count 16.8 K/mm3 (4.4-11.0)
[2022-02-19 21:26] LABS: Differential Indicated SCAN CRITERIA MET; Hemoglobin 18.2 g/dL (13.0-16.5)
[2022-02-19 22:01] LABS: Differential Comment SCANNED
[2022-02-19 22:02] LABS: AST(SGOT) 35 U/L (15-37); Alanine Aminotransfer ALT/SGPT 33 U/L (16-61); Alkaline Phosphatase 137 U/L (45-117); Anion Gap 17 (5-15); BUN 46 mg/dL (7-18); BUN/Creat Ratio 10.7 RATIO (10-20); Bilirubin, Direct 0.29 mg/dL (0.00-0.30); Calcium,Total 10.3 mg/dL (8.5-10.1); Chloride 90 mmol/L (98-107); Creatinine, Serum 4.31 mg/dL (0.70-1.30); EST Glomerular Filtration Rate 18 mL/min (>60); Est Glom Filt Rate - Afr Amer 22 mL/min (>60); Estimated Creatinine Clearance 24.39 ml/min; Globulin 4.5 g/dL (2.2-4.2); Glucose 111 mg/dL (74-106); Lipase 215 U/L (73-393); Potassium 4.2 mmol/L (3.5-5.1); Protein, Total 10.5 g/dL (6.4-8.2); Sodium Level 133 mmol/L (136-145)
--- NOTE | 2022-02-19 22:09 | CT_ITS ---
STUDY: CT ABDOMEN AND PELVIS WITHOUT CONTRAST REASON FOR EXAM: Male, 26 years old. abd pain RADIATION DOSAGE (If Supplied By Facility): CTDIvol = ( 6.07 ) mGy, DLP = ( 298.87 ) mGycm TECHNIQUE: Transaxial images were obtained from the dome of the diaphragm to the symphysis pubis without oral contrast, and without intravenous contrast. Sagittal and coronal images were reconstructed. Individualized dose optimization techniques were used for this CT. COMPARISON: CT abdomen and pelvis 10/17/2017 FINDINGS: LOWER CHEST: Included lung bases are clear. LIVER: Grossly unremarkable. GALLBLADDER AND BILIARY TREE: Grossly unremarkable. PANCREAS: Grossly unremarkable. SPLEEN: Grossly unremarkable. ADRENAL GLANDS: Grossly unremarkable. KIDNEYS AND URETERS: No calculi demonstrated. No hydronephrosis. 2 small low attenuation structures in the left kidney, approximately 1.5 cm, and 1 cm, likely cysts but not completely characterized. PERITONEUM: No free air. No free fluid. BOWEL: No bowel obstruction. APPENDIX: Visualized and unremarkable. No evidence of acute appendicitis. VESSELS: Abdominal aorta is normal caliber. REPRODUCTIVE ORGANS: Grossly unremarkable URINARY BLADDER: Grossly unremarkable. ABDOMINAL WALL: Unremarkable. BONES: No acute abnormalities. CT/Abdomen/Pelvis without Cont IMPRESSION: No acute findings. Electronically Signed: Ashwini Marrero MD at 22:41 EST ,
--- NOTE | 2022-02-19 22:10 | EDS_ITS ---
HPI History of Present Illness Chief Complaint: Abd Pain Informant: patient Onset/Context/Timing Onset: Yesterday Context: Gradual Onset Timing: Waxes and wanes Current Severity: Mild Maximum Severity: Moderate Narrative Narrative: Patient presents due to concerns for dehydration. He states he has epigastric abdominal pain with nausea and vomiting that started yesterday. He is had no diarrhea. He states he will get episodes like this about 3 times a year and thinks that he may have a ulcer. He is never seen a GI doctor or been scoped. He states he feels like he is getting muscle cramps and he feels very dehydrated. [facility] Medical History Asthma Tobacco abuse Home Medications NK 02/19/22 [History Last Taken Unknown] Allergy/AdvReac Type Severity Reaction Status Date / Time amoxicillin trihydrate Allergy Rash Verified 02/19/22 20:12 [From Augmentin] potassium clavulanate Allergy Rash Verified 02/19/22 20:12 [From Augmentin] Family History Brother Hemophilia Father Diabetes Surgical History History of tonsillectomy Social History Smoking Status: Current every day smoker tobacco type: cigarettes alcohol intake: current alcohol intake frequency: holidays/special occasions only substance use type: marijuana, heroin, opiates and other details: Fentanyl ROS ROS ED Constitutional Constitutional ED: Denies chills or fever(s) Eyes Eyes: Denies change in vision or discharge from eye(s) ENT ENT ED: Denies discharge from eye(s), rhinorrhea or sore throat Cardiovascular Cardiovascular: Denies chest pain or palpitations Respiratory/Chest Respiratory/Chest: Denies cough or dyspnea Gastrointestinal Gastrointestinal: Reports abdominal pain, nausea and vomiting; Denies diarrhea Genitourinary Genitourinary ED: Reports other Details: Decreased urine output ; Denies dysuria Musculoskeletal Musculoskeletal: Reports other Details: Muscle cramps ; Denies back pain or extremity pain Integumentary Denies Abrasions or rash Neurologic Neurologic: Denies headache(s) or weakness Psychiatric Psychiatric: Denies anxiety or depression Allergic/Immunologic Allergic/Immunologic ED: Denies lip swelling or urticaria EXAM Physical Exam Const Vital Signs: 02/19/22 20:08 Temperature 97.5 F L Temperature Source Temporal Pulse Rate 64 Respiratory Rate 16 Blood Pressure 137/94 H Blood Pressure Mean 108 Pulse Ox 98 Oxygen Delivery Method Room Air Positive well nourished and well developed General Appearance ED: well developed HEENT Reports normocephalic and head/scalp atraumatic Eyes PERRL and EOMs intact bilaterally Neck supple Chest Wall inspection of chest normal and palpation of chest normal Resp normal respiratory effort and clear to auscultation bilaterally Cardio regular rate and regular rhythm GI GI Narrative: Mild epigastric tenderness palpation. No guarding or rebound. Hypoactive but present bowel sounds are noted. Palpation: soft Extremity normal to inspection Neuro oriented x3 and no sensory deficits noted Sensorium / Orientation: alert Motor Exam: strength 5/5 throughout Psych mental status grossly normal Skin no rashes or lesions noted MDM MDM MDM Narrative Medical decision making narrative: Patient given IV fluids and Zofran. A dose of Protonix is ordered. Lab work obtained. Lab Data Attestation: I reviewed the patient's lab results. Labs: Laboratory Results - last 24 hr 02/19/22 02/19/22 21:06 21:06 WBC 16.8 H RBC 6.49 H Hgb 18.2 H* Hct 52.4 MCV 80.7 MCH 28.0 MCHC 34.7 RDW Std Deviation 39.6 RDW Coeff of Cecilio 13.9 Plt Count 482 H MPV 9.2 Immature Gran % (Auto) 0.500 Neut % (Auto) 75.6 H Lymph % (Auto) 14.5 L [place] % (Auto) 9.1 Eos % (Auto) 0.1 Baso % (Auto) 0.2 Absolute Neuts (auto) 12.7 H Absolute Lymphs (auto) 2.43 Nucleated RBC % 0 Differential Comment SCANNED Diff Path Review May foll Sodium 133 L Potassium 4.2 Chloride 90 L Carbon Dioxide 26.0 Anion Gap 17 H BUN 46 H Creatinine 4.31 H Estim Creat Clear Calc 24.39 Est GFR (MDRD) Af Amer 22 L Est GFR (MDRD) Non-Af 18 L BUN/Creatinine Ratio 10.7 Glucose 111 H Calcium 10.3 H Total Bilirubin 1.70 H Direct Bilirubin 0.29 AST 35 ALT 33 Alkaline Phosphatase 137 H Total Protein 10.5 H Albumin 6.0 H Globulin 4.5 H Lipase 215 Radiography Diagnostic Testing: Clinical Impression(s) from Imaging Studies Abdomen/Pelvis CT 02/19/22 22:09 IMPRESSION: No acute findings. Electronically Signed: Ashwini Marrero MD at 22:41 EST , Treatment and Re-Evaluation Narrative: CBC was a white count of 16.8 with 75% neutrophils. Hemoglobin is concentrated at 18.2. Chemistry studies reveal a sodium of 133 and a chloride of 90. BUN is 46 and his creatinine is 4.31. LFTs are largely unremarkable. Lipase is normal. Patient sent for CT scan of the abdomen and pelvis. CT scan abdomen pelvis reveals no acute findings. Patient will be discussed with hospitalist for admission given his acute renal failure. Discharge Plan Triage Chief Complaint: Abd Pain ED Provider: Chrissy Kramer Dx/Rx/DC Orders Clinical Impression: Vomiting, Acute renal failure Instructions: Acute Kidney Failure Dc Prescriptions: No Action NK Primary Care Provider: Stacy Gomez Referrals: Stacy Gomez PA [Primary Care Provider] - 3-5 Days Disposition Disposition: Against Medical Advice
[2022-02-19] MEDS: 0.9% Normal Saline 1,000 ML 999 ML IV (22:55)
[2022-02-20 12:21] LABS: Pathologist Review Reviewed
== END 2022-02-20 00:29 | disposition left against medical advice (07) ==
PROVIDERS: Emergency Provider Emergency Medicine; PCP Physician Assistant; Visit Provider Emergency Medicine
DX: N17.9 Acute kidney failure, unspecified (principal); R11.10 Vomiting, unspecified; F12.90 Cannabis use, unspecified, uncomplicated; F17.210 Nicotine dependence, cigarettes, uncomplicated
CPT/HCPCS: 74176; 80048; 80076; 83690; 85025; 99283; J7030; A4216; J2405

== ENCOUNTER 2022-03-02 07:59 | Emergency (ER) | payer MEDICAID, SELFPAY ==
[2022-03-02 08:01] VITALS: BP 157/96; PULSE 106; RESP 18; TEMP 36.3; O2SAT 94; BMI 21.7
[2022-03-02 08:02] VITALS: BP 159/99; PULSE 121; RESP 18; TEMP 37.1; O2SAT 95
--- NOTE | 2022-03-02 08:16 | EDS_ITS ---
HPI History of Present Illness Chief Complaint: Flank Pain Informant: patient Narrative Narrative: Patient states he is having some pain in his right lower back. Its been there for at least a few days. He thinks it started about the time he was seen in the emergency department. He was told his kidneys were failing but he refused to stay. He has been drinking fluids. He is not vomiting. He states he is urinating a pretty good amount and its light-colored. Its not darker brown. He has not seen blood. He states his back is just a little sore. It is a little sore when he moves or twists. He has no numbness tingling or weakness. He denies fevers or chills. No anterior abdominal pain. No nausea or vomiting. He just thinks that he probably should have stayed in the hospital and he wants to make sure his kidneys are okay. Again, he has been trying to drink a lot of fluids. Patient does smoke marijuana. He admitted to opiate use. But he denies injection of any drugs. [facility] Medical History Asthma Tobacco abuse Home Medications albuterol 90 mcg/actuation aerosol inhaler mcg inhalation 03/02/22 [History Last Taken Unknown] Allergy/AdvReac Type Severity Reaction Status Date / Time amoxicillin trihydrate Allergy Rash Verified 03/02/22 08:03 [From Augmentin] potassium clavulanate Allergy Rash Verified 03/02/22 08:03 [From Augmentin] Family History Brother Hemophilia Father Diabetes Surgical History History of tonsillectomy Social History Smoking Status: Current every day smoker tobacco type: cigarettes alcohol intake: current alcohol intake frequency: holidays/special occasions only substance use type: marijuana, heroin, opiates and other details: Fentanyl ROS ROS ED Constitutional Constitutional ED: Denies chills, fever(s), subjective or sweats Eyes Eyes: Denies change in vision ENT ENT ED: Denies rhinorrhea or sore throat Cardiovascular Cardiovascular: Denies chest pain or palpitations Respiratory/Chest Respiratory/Chest: Denies cough or dyspnea Gastrointestinal Gastrointestinal: Denies abdominal pain, nausea or vomiting Genitourinary Genitourinary ED: Denies dysuria, hematuria or urinary frequency Musculoskeletal Musculoskeletal: Reports back pain; Denies myalgias Integumentary Denies rash Neurologic Neurologic: Denies headache(s) Endocrine Endocrinology: Denies polydipsia or polyuria Hematologic/Lymphatic Hematologic/Lymphatic: Denies easy bleeding or easy bruising Allergic/Immunologic Allergic/Immunologic ED: Denies urticaria EXAM Physical Exam Const Vital Signs: 03/02/22 08:01 03/02/22 08:02 Temperature 97.4 F L 98.7 F Temperature Source Temporal Temporal Pulse Rate 106 H 121 H Respiratory Rate 18 18 Blood Pressure 157/96 H 159/99 H Blood Pressure Mean 116 119 Pulse Ox 94 95 Oxygen Delivery Method Room Air Room Air Positive well nourished and well developed Constitutional Narrative: Patient has trouble sitting still. He moves his extremities and twist const antly in bed. He has appearance as though he is under the influence of some chemicals such as methamphetamine or some version of a stimulant. He denies this. General Appearance ED: well developed; Negative for cyanotic or diaphoretic HEENT Reports moist mucous membranes HEENT Narrative: Mucous membranes are still moist. Eyes General Eye ED: Negative for scleral icterus Neck no lymphadenopathy Resp normal respiratory effort and clear to auscultation bilaterally Resp Narrative: Despite a history of asthma, his lungs are clear. Cardio regular rhythm Rate: tachycardic GI normal to inspection, nondistended, normoactive bowel sounds, non-tender and non-distended; Negative for hepatosplenomegaly Back/Spine Back/Spine Narrative: Patient has no CVA tenderness. He does point to his right paraspinal but is really lower down in the back. It is a little sore when he twists or moves. There is no skin changes in the area. There is a small abrasion in the left flank area but is not infected and is quite small and is not indicative of any significant trauma. Extremity normal to inspection General Extremety ED: Negative for edema or tenderness General Extremity: Negative for edema Neuro oriented x3 Psych Mood & Affect: anxious Skin no rashes or lesions noted Trauma: abrasion MDM MDM MDM Narrative Medical decision making narrative: Patient CBC is normal. White count and hemoglobin are back down. Electrolytes are normal. Renal functions normal. Total CPK is normal. I do not have urine on him but he is not having urinary symptoms. With his normal renal function and report of clear urine I do not think we need this. He does not want to stay further. Plan will be to get him home at this time. I encouraged him to avoid any drugs and make sure he drinks plenty of fluids. We discussed reasons to return. Lab Data Attestation: I reviewed the patient's lab results. Labs: Laboratory Results - last 24 hr 03/02/22 03/02/22 08:20 08:20 WBC 6.8 RBC 4.89 Hgb 13.8 Hct 41.0 MCV 83.8 MCH 28.2 MCHC 33.7 RDW Std Deviation 40.3 RDW Coeff of Cecilio 13.2 Plt Count 371 MPV 8.8 Immature Gran % (Auto) 0.100 Neut % (Auto) 43.1 L Lymph % (Auto) 45.1 H [place] % (Auto) 7.8 Eos % (Auto) 3.5 Baso % (Auto) 0.4 Absolute Neuts (auto) 2.9 Absolute Lymphs (auto) 3.06 Nucleated RBC % 0 Sodium 141 Potassium 3.5 Chloride 107 Carbon Dioxide 29.0 Anion Gap 5 BUN 12 Creatinine 0.77 Estim Creat Clear Calc 153.90 Est GFR (MDRD) Af Amer 156 Est GFR (MDRD) Non-Af 129 BUN/Creatinine Ratio 15.5 Glucose 98 Calcium 9.2 Total Creatine Kinase 196 Discharge Plan Triage Chief Complaint: Flank Pain ED Provider: Boston Menendez Dx/Rx/DC Orders Clinical Impression: History of renal failure, Lower back pain Instructions: ED Flank Pain, Uncertain Cause Prescriptions: No Action albuterol 90 mcg/actuation Aerosol INHALATION Primary Care Provider: Stacy Gomez Referrals: Stacy Gomez, PA [Primary Care Provider] - 3-5 Days Disposition Disposition: Home, Self Care
[2022-03-02] MEDS: 0.9% Normal Saline 1,000 ML 1000 ML IV (08:27)
[2022-03-02 08:29] LABS: Absolute Lymphocyte Count 3.06 X10^3/uL (0.83-4.51); Absolute Neutrophil Count 2.9 X10^3/uL (2.0-7.7); Basophil# 0.03 X10^3/uL; Basophil% 0.4 % (0-1); Eosinophil# 0.24 X10^3/uL; Eosinophils% 3.5 % (0-5); Hemoglobin 13.8 g/dL (13.0-16.5); Lymphocyte # 3.06 X10^3/ul (0.83-4.51); Lymphocyte % 45.1 % (19-41); Mean Corp Hgb Conc 33.7 g/dL (32-36); Mean Corpuscular Hgb 28.2 pg (27.0-32.0); Mean Corpuscular Volume 83.8 fL (80-94); Mean Platelet Vol. 8.8 fl (6.2-12.0); Monocyte# 0.53 X10^3/uL; Monocyte% 7.8 % (0-10); NRBC Flagged by Analyzer 0 % (0-5); Neutrophil # 2.92 X10^3/uL (2.7-7.7); Neutrophil % 43.1 % (47-70); Platelet Count 371 K/mm3 (150-450); RBC Distribution Width CV 13.2 % (11.6-14.6); RBC Distribution Width SD 40.3 fl (35.1-43.9); Red Blood Count 4.89 M/mm3 (4.6-6.2); White Blood Count 6.8 K/mm3 (4.4-11.0)
[2022-03-02 08:47] LABS: Anion Gap 5 (5-15); BUN 12 mg/dL (7-18); BUN/Creat Ratio 15.5 RATIO (10-20); CPK Total, Creatine Kinase 196 U/L (39-308); Calcium,Total 9.2 mg/dL (8.5-10.1); Chloride 107 mmol/L (98-107); Creatinine, Serum 0.77 mg/dL (0.70-1.30); EST Glomerular Filtration Rate 129 mL/min (>60); Est Glom Filt Rate - Afr Amer 156 mL/min (>60); Glucose 98 mg/dL (74-106); Potassium 3.5 mmol/L (3.5-5.1); Sodium Level 141 mmol/L (136-145)
[2022-03-02 09:22] VITALS: BP 138/90; PULSE 105; RESP 16; O2SAT 98
--- NOTE | 2022-03-02 09:23 | ED.RN ---
pt given written and verbal dc instructions. pt ambulated without difficulty out of department
== END 2022-03-02 09:23 | disposition home or self-care (01) ==
PROVIDERS: Emergency Provider Emergency Medicine; PCP Physician Assistant; Visit Provider Emergency Medicine
DX: M54.50 Low back pain, unspecified (principal); R10.9 Unspecified abdominal pain; J45.909 Unspecified asthma, uncomplicated; F17.210 Nicotine dependence, cigarettes, uncomplicated
CPT/HCPCS: 80048; 82550; 85025; 96360; 99283; J7030; A4216

== ENCOUNTER 2022-04-23 18:50 | Inpatient (IN) | payer MEDICAID, SELFPAY ==
[2022-04-23 18:52] VITALS: BP 142/117; PULSE 123; RESP 14; TEMP 36.6; O2SAT 95; BMI 20.6
--- NOTE | 2022-04-23 20:26 | ED.VIS.GI ---
HPI HPI - GI History of Present Illness Chief Complaint: Abd Pain Detail of Chief Complaint: Abdominal pain with vomiting and diarrhea Informant: patient Abdominal Pain/Flank Pain Onset: Days (Days ago) Context: Sudden Onset Timing: Continuous Quality: - (Pain) Location: Epigastric (Predominantly epigastrium) Current Severity: Moderate Maximum Severity: Severe Worsened by: Nothing Relieved by: Nothing Nausea/Vomiting/Emesis GI Symptom: Positive for Nausea and Vomiting Onset: Yesterday Episodes: 3 Diarrhea/Melena/Hematochezia GI Symptom: Positive for Diarrhea; Negative for Melena or Hematochezia Onset: Yesterday Stool Quality: Positive for Watery; Negative for Mucous, Black, Maroon or BRB per rectum Severity: Moderate Associated Symptoms Associated Symptoms: Negative for Dysuria, Frequency, Hematuria or Urgency Narrative Narrative: Patient is a 26-year-old male with history of hyperactive airway disease who presents with abdominal pain that is worse in the epigastric area. He states its pain. He is not able describe it any more than pain. He denies intolerance to greasy or fried foods. Mother has history of cholelithiasis and is status postcholecystectomy. He denies fever, chills night sweats. He denies headache, visual, ocular auditory symptoms. He denies cardiac or respiratory symptoms. He denies any ill contacts. There is no history of inflammatory bowel disorder. He denies eating anything that tasted unusual. He states he has not been on antibiotics in the last month. He has not taken anything for the pain, vomiting or diarrhea. He denies myalgias or arthralgias. He denies joint swelling. He denies rash. Prior similar symptoms: Yes Recent Illness/Hospitalization: No PFSH PFS Medical History Asthma Tobacco abuse Home Medications albuterol 90 mcg/actuation aerosol inhaler 90 mcg inhalation 03/02/22 [History Last Taken Unknown] Allergy/AdvReac Type Severity Reaction Status Date / Time amoxicillin trihydrate Allergy Rash Verified 03/02/22 08:03 [From Augmentin] potassium clavulanate Allergy Rash Verified 03/02/22 08:03 [From Augmentin] Family History Brother Hemophilia Father Diabetes Surgical History History of tonsillectomy Social History Smoking Status: Current every day smoker tobacco type: cigarettes alcohol intake: current alcohol intake frequency: holidays/special occasions only substance use type: marijuana, heroin, opiates and other details: Fentanyl ROS ROS ED Constitutional Constitutional ED: Denies chills, fever(s), subjective, sweats or weight loss ENT ENT ED: Denies ear pain, rhinorrhea or sore throat Cardiovascular Cardiovascular: Denies chest pain or palpitations Respiratory/Chest Respiratory/Chest: Denies cough, dyspnea or dyspnea on exertion Gastrointestinal Gastrointestinal: Reports abdominal pain, diarrhea, nausea and vomiting; Denies constipation or melena Genitourinary Genitourinary ED: Denies dysuria, hematuria or other Musculoskeletal Musculoskeletal: Denies arthralgias, back pain, myalgias or neck pain Integumentary Denies rash Neurologic Neurologic: Denies headache(s), paresthesias or weakness Endocrine Endocrinology: Denies polydipsia, polyphagia or polyuria Hematologic/Lymphatic Hematologic/Lymphatic: Denies easy bleeding or easy bruising Allergic/Immunologic Allergic/Immunologic ED: Denies mouth swelling or tongue swelling EXAM Physical Exam Const Vital Signs: 04/23/22 18:52 Temperature 98 F Temperature Source Temporal Pulse Rate 123 H Respiratory Rate 14 Blood Pressure 142/117 H Blood Pressure Mean 125 Pulse Ox 95 Oxygen Delivery Method Room Air Positive well nourished and well developed Constitutional Narrative: Patient appears uncomfortable. General Appearance ED: well developed; Negative for pallor HEENT Reports TM's clear and dry mucous membranes HEENT Narrative: Nares patent. Uvula midline. normocephalic and atraumatic Tympanic Membrane ED: Yes TM's clear Mouth ED: Yes dry mucous membranes Mouth: dry mucous membranes Eyes PERRL and EOMs intact bilaterally General Eye ED: Negative for pale conjunctiva or scleral icterus Neck no lymphadenopathy, supple and no JVD Resp normal respiratory effort and clear to auscultation bilaterally Cardio regular rhythm, S1 normal heart sound, S2 normal heart sound and no murmurs Rate: tachycardic GI no masses; Negative for non-tender or non-distended GI Narrative: There is tympany throughout. Negative clinical Hoyt sign Auscultation: hypoactive bowel sounds Palpation: tender epigastric and guarding other (Epigastric region); Negative for soft, rigid, hepatomegaly, splenomegaly, hernia, mass, pulsatile mass or rebound tenderness present Back/Spine no CVA tenderness Thoracic Spine / Upper Back: Negative for thoracic spinal tenderness Lumbar Spine / Lower Back: Negative for lumbar spinal tenderness Extremity full ROM General Extremety ED: Negative for edema or tenderness General Extremity: Negative for edema Neuro CN's II-XII intact bilaterally, moves all extremities and no sensory deficits noted Sensorium / Orientation: alert Psych mental status grossly normal and thought process normal Skin no wounds General Skin Exam: Negative for jaundice or pallor MDM MDM MDM Narrative Medical decision making narrative: Patient states he uses marijuana 2-3 times a week. He reports use of opiates 1-2 times a week. He last used 3 days ago. He states he has not had any recent alcohol use. With epigastric pain nausea, vomiting diarrhea suspect this may be viral in etiology. Patient does have significant pain. Will obtain CBC to assess white count and H&H. Liver profile to assess transaminases as well as lipase to evaluate for liver inflammation or pancreatitis. BMP to assess renal function, rule out hypokalemia and assess CO2 anion gap. IV was established. He received 1 L normal saline. He was treated with Bentyl, morphine and Zofran. Since there is no history of blood or mucus in the stool and no history of pseudomembranous enterocolitis he also received Imodium. Review of prior records indicates he was admitted 1 year ago for opiate withdrawal. At that time he was hypertensive and had a rapid heart rate. Urine tox was not obtained since patient admits to multiple drug uses. This will not clarify when he last used. Lab Data Attestation: I reviewed the patient's lab results. Lab results narrative: Sodium is 131 with a chloride of 92. CO2 anion gap is normal. Creatinine is elevated 1.30 however GFR 71. BUN/creatinine ratio is 33:1 which is consistent with dehydration. Urine reveals an elevated specific gravity and ketones. There is no evidence of an. Labs: Laboratory Results - last 24 hr 04/23/22 04/23/22 04/23/22 19:50 20:55 22:00 Sodium 131 L Potassium 3.7 Chloride 92 L Carbon Dioxide 27.0 Anion Gap 12 BUN 43 H Creatinine 1.30 Estim Creat Clear Calc 86.35 Est GFR (MDRD) Af Amer 86 Est GFR (MDRD) Non-Af 71 BUN/Creatinine Ratio 33.1 H Glucose 113 H Calcium 9.7 Total Bilirubin 1.10 H Direct Bilirubin 0.25 AST 16 ALT 22 Alkaline Phosphatase 105 Total Protein 9.7 H Albumin 5.0 Globulin 4.7 H Lipase 122 Urine Color Yellow Urine Clarity Clear Urine pH 6.0 Ur Specific [place] 1.025 Urine Protein 100 H Urine Glucose (UA) Normal Urine Ketones 5 H Urine Occult Blood Negative Urine Nitrite Negative Urine Bilirubin Negative Urine Urobilinogen Normal Ur Leukocyte Esterase Negative Urine RBC 0 SEEN Urine WBC 0-5 SEEN Ur Squamous Epith Cells 0 SEEN Urine Bacteria 0 SEEN Hyaline Casts 0-5 SEEN Urine Mucus 0 SEEN Ur Drug Screen Comment Rhythm Strip Rhythm Strip: Sinus Tach Rate: 115 Ectopy: None Treatment and Re-Evaluation Narrative: He states he does feel better. Discussed his illicit drug use. Asked if he would like help regarding the use of opiates and marijuana. He states he would. In light of this we will contact hospitalist for admission. Discharge Plan Dx/Rx/DC Orders Clinical Impression: Abdominal pain, vomiting, and diarrhea, Opiate addiction, Acute prerenal azotemia, Ketosis, Cannabis abuse, Sinus tachycardia Disposition Disposition: Acute Care Hospital [facility]
[2022-04-23] MEDS: Loperamide 2 MG Capsule 4 MG PO (20:49)
[2022-04-23] MEDS: Morphine 2 MG/ML Syringe IV (20:49)
[2022-04-23] MEDS: Dicyclomine 10 MG Capsule 20 MG PO (20:50)
[2022-04-23] MEDS: 0.9% Normal Saline 1,000 ML 1000 ML IV (20:50)
[2022-04-23] MEDS: Ondansetron 4 MG/2 ML Vial IV (20:50)
[2022-04-23 20:58] LABS: Bacteria 0 SEEN /hpf (None Seen); Mucous, Urine 0 SEEN /hpf (<or=2+); Red Blood Cells-Urine 0 SEEN /hpf (0-5); Squamous Epithelial Cells - UA 0 SEEN /hpf (0-5)
[2022-04-23 21:00] LABS: Glucose, Dipstick Normal (Normal); Ketone-Dipstick 5 mg/dl (Negative); Leukocyte Esterase-Dipstick Negative /ul (Negative); Nitrite-Dipstick Negative (Negative); Occult Blood-Urine Negative /ul (Negative); Protein-Dipstick 100 mg/dl (Negative); Specific Gravity, Urine 1.025 (1.002-1.030); Urine Bilirubin Dipstick Negative (Negative); Urine Urobilinogen Normal (Normal)
[2022-04-23 21:01] LABS: AST(SGOT) 16 U/L (15-37); Alanine Aminotransfer ALT/SGPT 22 U/L (16-61); Alkaline Phosphatase 105 U/L (45-117); Anion Gap 12 (5-15); BUN 43 mg/dL (7-18); BUN/Creat Ratio 33.1 RATIO (10-20); Bilirubin, Direct 0.25 mg/dL (0.00-0.30); Calcium,Total 9.7 mg/dL (8.5-10.1); Chloride 92 mmol/L (98-107); EST Glomerular Filtration Rate 71 mL/min (>60); Est Glom Filt Rate - Afr Amer 86 mL/min (>60); Estimated Creatinine Clearance 86.35 ml/min; Globulin 4.7 g/dL (2.2-4.2); Glucose 113 mg/dL (74-106); Lipase 122 U/L (73-393); Potassium 3.7 mmol/L (3.5-5.1); Protein, Total 9.7 g/dL (6.4-8.2); Sodium Level 131 mmol/L (136-145)
[2022-04-23 21:04] LABS: Color, Urine Yellow (Yellow); Urine Clarity Clear (Clear)
[2022-04-23 21:17] LABS: White Blood Cells 0-5 SEEN /hpf (0-5)
[2022-04-23 21:18] LABS: Hyaline Cast 0-5 SEEN /lpf (0-5)
--- NOTE | 2022-04-23 22:26 | PCM.HP.STD ---
[facility] - General General Date of Admission: 04/23/22 Date of Service: 04/23/22 Chief Complaint: Epigastric pain, request for tox from heroin/fentanyl HPI Narrative BRYAN LUNDBERG, is a 26 M who presents with the above. Patient has past medical history of polysubstance use -daily heroin/fentanyl as well as marijuana. He last used fentanyl/heroin about 2 days ago, but about $20 worth. He comes in complains of abdominal pain especially in the epigastric region. He was last in detox a year ago in March 2021. He denies smoking cigarettes. Denies any fever or chills no nausea vomiting. At time of being seen, he denied any new complaints. He did receive Imodium, Bentyl, morphine, and Zofran in the emergency room as well as IV fluids In the ED, his blood pressure was 142/117, heart rate 120, respiratory rate was 14, temperature 98F, oxygen sat was 95% on room air. Admitting blood work showed sodium 131, potassium 3.7, chloride 93, bicarbonate 27, BUN 43, creatinine 1.30, previous creatinine 0.77. UA was unremarkable. Urine tox was positive for amphetamines, ecstasy and cannabinoids. [facility] Medical History Asthma Tobacco abuse Home Medications albuterol 90 mcg/actuation aerosol inhaler 90 mcg inhalation 03/02/22 [History Last Taken Unknown] Allergy/AdvReac Type Severity Reaction Status Date / Time amoxicillin trihydrate Allergy Rash Verified 03/02/22 08:03 [From Augmentin] potassium clavulanate Allergy Rash Verified 03/02/22 08:03 [From Augmentin] Family History Brother Hemophilia Father Diabetes Surgical History History of tonsillectomy Social History (Updated 04/23/22 @ 22:[address] Tory Chirinos MD) alcohol intake: current alcohol intake frequency: holidays/special occasions only substance use type: marijuana, heroin, opiates and other details: Fentanyl ROS ROS Narrative Constitutional:Denies: Anorexia, Chills, Fever, Night Sweats, Weight Change Eyes: Denies: Blurred vision, Cataracts, Conjunctivae Inflammation, Pain, Redness, Vision Change HEENT: Denies: Difficulty Hearing, Difficulty Swallowing, Head Aches, Hearing Changes, Sinus Congestion, Sinus Drainage Cardiovascular: Denies: Chest Pain, Orthopnea, Palpitations Respiratory: Denies: Cough, Shortness of breath at rest, Sputum production Gastrointestinal: See HPI per Genitourinary: Denies: Dysuria Musculoskeletal: Denies: Joint Pain, Joint stiffness, Joint swelling, Joint Tenderness Skin: Denies: Rash, Wounds Neurological: Denies: Numbness, Tingling, Focal weakness Vital Signs Vital Signs Vital Signs: 04/23/22 18:52 Temperature 98 F Temperature Source Temporal Pulse Rate 123 H Respiratory Rate 14 Blood Pressure 142/117 H Blood Pressure Mean 125 Pulse Ox 95 Oxygen Delivery Method Room Air Weight Weight: 70.9 kg Body Mass Index (BMI) 20.6 Physical Exam Narrative Physical exam: General: Alert, Oriented x3, Cooperative, appears restless HEENT: Atraumatic Oral: Moist Mucosa Neck: Supple Lungs: Clear to auscultation Cardiovascular: HS I+II, regular, no murmurs Abdomen: Bowel Sounds Present, Soft, Non Tender Extremities: No edema Skin: No rashes, No breakdown Neurological: Grossly intact Psych/Mental Status: Appropriate Results Lab / Micro Data Result Diagrams: 04/23/22 19:50 Labs: Laboratory Results - last 24 hr 04/23/22 19:50: Sodium 131 L, Potassium 3.7, Chloride 92 L, Carbon Dioxide 27.0, Anion Gap 12, BUN 43 H, Creatinine 1.30, Estim Creat Clear Calc 86.35, Est GFR (MDRD) Af Amer 86, Est GFR (MDRD) Non-Af 71, BUN/Creatinine Ratio 33.1 H, Glucose 113 H, Calcium 9.7, Total Bilirubin 1.10 H, Direct Bilirubin 0.25, AST 16, ALT 22, Alkaline Phosphatase 105, Total Protein 9.7 H, Albumin 5.0, Globulin 4.7 H, Lipase 122 04/23/22 20:55: Urine Color Yellow, Urine Clarity Clear, Urine pH 6.0, Ur Specific [place] 1.025, Urine Protein 100 H, Urine Glucose (UA) Normal, Urine Ketones 5 H, Urine Occult Blood Negative, Urine Nitrite Negative, Urine Bilirubin Negative, Urine Urobilinogen Normal, Ur Leukocyte Esterase Negative, Urine RBC 0 SEEN, Urine WBC 0-5 SEEN, Ur Squamous Epith Cells 0 SEEN, Urine Bacteria 0 SEEN, Hyaline Casts 0-5 SEEN, Urine Mucus 0 SEEN 04/23/22 22:00: Ur Drug Screen Comment Rhythm Strip Rhythm Strip: Sinus Tach Rate: 115 Ectopy: None Assessment & Plan Assessment/Plan (1) Polysubstance (including opioids) dependence with physiol dependence: (2) Abdominal pain, vomiting, and diarrhea: (3) Acute prerenal azotemia: (4) Acute opioid withdrawal: PLAN: Plan 1. Acute opioid withdrawal, patient with the use of heroin/fentanyl Last use was 2 days prior to admission Admit to [facility], start on Subutex withdrawal protocol 2. Polysubstance use, advised to quit 3. Acute kidney injury, patient with admitting creatinine 1.3, previous creatinine 0.77 Patient received IV fluids in the ED; will encourage liberal oral intake Will trend labs in a.m. 4. DVT PPx- Low risk; early ambulation recommended Charges/Coding Visit Charges Inpatient E&M: 35076 Init Hosp L2
[2022-04-23 22:39] LABS: Alcohol, Blood (Medical)-Serum < 3.0 mg/dL
[2022-04-23 22:40] LABS: Amphetamine Urine VISTA POSITIVE (<1000 ng/mL); Barbiturate Urine VISTA NEGATIVE (< 200 ng/mL); Benzodiazepine Urine VISTA NEGATIVE (< 200 ng/mL); Cocaine Urine VISTA NEGATIVE (< 300 ng/mL); Ecstacy Urine VISTA POSITIVE (< 500 ng/mL); Methadone Urine VISTA NEGATIVE (< 300 ng/mL); PCP Urine VISTA NEGATIVE (< 25 ng/mL); THC Urine VISTA POSITIVE (< 50 ng/mL); Vista UDS pH Range 5
[2022-04-23 23:42] VITALS: BP 159/95; PULSE 86; RESP 18; TEMP 36.7; O2SAT 100
[2022-04-23 23:52] VITALS: BMI 19.5
[2022-04-24 00:05] VITALS: BP 128/83; PULSE 85; RESP 18; TEMP 37.3; O2SAT 99
[2022-04-24] MEDS: traZODone 100 MG Tablet PO ×2 (02:24→22:07)
[2022-04-24] MEDS: Dicyclomine 10 MG Capsule 20 MG PO ×2 (02:24→18:10)
[2022-04-24 02:30] VITALS: BP 144/88; PULSE 87; RESP 20; TEMP 36.6; O2SAT 99
[2022-04-24 04:49] LABS: Absolute Lymphocyte Count 2.81 X10^3/uL (0.83-4.51); Absolute Neutrophil Count 7.5 X10^3/uL (2.0-7.7); Basophil# 0.02 X10^3/uL; Basophil% 0.2 % (0-1); Eosinophil# 0.03 X10^3/uL; Eosinophils% 0.3 % (0-5); Hematocrit 45.2 % (40-54); Hemoglobin 15.6 g/dL (13.0-16.5); Lymphocyte # 2.81 X10^3/ul (0.83-4.51); Lymphocyte % 24.5 % (19-41); Mean Corp Hgb Conc 34.5 g/dL (32-36); Mean Corpuscular Hgb 28.4 pg (27.0-32.0); Mean Corpuscular Volume 82.3 fL (80-94); Mean Platelet Vol. 8.5 fl (6.2-12.0); Monocyte# 1.03 X10^3/uL; NRBC Flagged by Analyzer 0 % (0-5); Neutrophil # 7.52 X10^3/uL (2.7-7.7); Neutrophil % 65.6 % (47-70); Platelet Count 451 K/mm3 (150-450); RBC Distribution Width CV 12.8 % (11.6-14.6); RBC Distribution Width SD 38.4 fl (35.1-43.9); Red Blood Count 5.49 M/mm3 (4.6-6.2); White Blood Count 11.5 K/mm3 (4.4-11.0)
[2022-04-24] MEDS: Ondansetron 4 MG/2 ML Vial IV ×3 (05:09→17:07)
[2022-04-24] MEDS: 0.9% Saline Lock 10 ML Syringe IV ×2 (05:09→17:08)
[2022-04-24 05:22] LABS: ALB/GLOB Ratio 1.1 RATIO (0.9-2.4); AST(SGOT) 16 U/L (15-37); Alanine Aminotransfer ALT/SGPT 19 U/L (16-61); Alkaline Phosphatase 89 U/L (45-117); Anion Gap 11 (5-15); BUN 38 mg/dL (7-18); BUN/Creat Ratio 38.4 RATIO (10-20); Calcium,Total 8.7 mg/dL (8.5-10.1); Chloride 95 mmol/L (98-107); Creatinine, Serum 0.99 mg/dL (0.70-1.30); EST Glomerular Filtration Rate 97 mL/min (>60); Est Glom Filt Rate - Afr Amer 117 mL/min (>60); Estimated Creatinine Clearance 110.27 ml/min; Globulin 3.8 g/dL (2.2-4.2); Glucose 113 mg/dL (74-106); Potassium 3.7 mmol/L (3.5-5.1); Protein, Total 7.8 g/dL (6.4-8.2); Sodium Level 130 mmol/L (136-145)
--- NOTE | 2022-04-24 07:36 | PCM.PN.HOSP ---
Subjective Subjective Reports having some burning abdominal pain without anything making it particularly better or worse, feels stomach is Upset not actively vomiting. Has no other physical complaints. Objective Data Objective Data Vital Signs: Vital Signs Temp Pulse Resp BP Pulse Ox O2 Del Method 97.8 F 87 20 H 144/88 H 99 Room Air 04/24/22 02:30 04/24/22 02:30 04/24/22 02:30 04/24/22 02:30 04/24/22 02:30 04/24/22 02:30 Oxygen Delivery Method Room Air Weight: 68.946 kg Body Mass Index (BMI) 19.5 Intake & Output: Intake and Output for Last 24 Hours 04/22/22 04/23/22 04/24/22 23:59 23:59 23:59 Intake Total 1000 / 1000 Balance 1000 / 1000 Lab / Micro Data Result Diagrams: 04/24/22 04:18 04/24/22 04:18 Labs: Laboratory Results - last 24 hr 04/23/22 19:50: Sodium 131 L, Potassium 3.7, Chloride 92 L, Carbon Dioxide 27.0, Anion Gap 12, BUN 43 H, Creatinine 1.30, Estim Creat Clear Calc 86.35, Est GFR (MDRD) Af Amer 86, Est GFR (MDRD) Non-Af 71, BUN/Creatinine Ratio 33.1 H, Glucose 113 H, Calcium 9.7, Total Bilirubin 1.10 H, Direct Bilirubin 0.25, AST 16, ALT 22, Alkaline Phosphatase 105, Total Protein 9.7 H, Albumin 5.0, Globulin 4.7 H, Lipase 122 04/23/22 20:55: Urine Color Yellow, Urine Clarity Clear, Urine pH 6.0, Ur Specific [place] 1.025, Urine Protein 100 H, Urine Glucose (UA) Normal, Urine Ketones 5 H, Urine Occult Blood Negative, Urine Nitrite Negative, Urine Bilirubin Negative, Urine Urobilinogen Normal, Ur Leukocyte Esterase Negative, Urine RBC 0 SEEN, Urine WBC 0-5 SEEN, Ur Squamous Epith Cells 0 SEEN, Urine Bacteria 0 SEEN, Hyaline Casts 0-5 SEEN, Urine Mucus 0 SEEN 04/23/22 22:00: Urine Opiates Screen NEGATIVE, Urine Methadone Screen NEGATIVE, Ur Barbiturates Screen NEGATIVE, Ur Phencyclidine Scrn NEGATIVE, Ur Amphetamines Screen POSITIVE H, MDMA (Ecstasy) Screen POSITIVE H, U Benzodiazepines Scrn NEGATIVE, Urine Cocaine Screen NEGATIVE, U Cannabinoids Screen POSITIVE H, Ur Drug Screen Comment 04/23/22 22:05: Ethyl Alcohol < 3.0 04/24/22 04:18: WBC 11.5 H, RBC 5.49, Hgb 15.6, Hct 45.2, MCV 82.3, MCH 28.4, MCHC 34.5, RDW Std Deviation 38.4, RDW Coeff of Cecilio 12.8, Plt Count 451 H, MPV 8.5, Immature Gran % (Auto) 0.400, Neut % (Auto) 65.6, Lymph % (Auto) 24.5, [place] % (Auto) 9.0, Eos % (Auto) 0.3, Baso % (Auto) 0.2, Absolute Neuts (auto) 7.5, Absolute Lymphs (auto) 2.81, Nucleated RBC % 0 04/24/22 04:18: Sodium 130 L, Potassium 3.7, Chloride 95 L, Carbon Dioxide 24.0, Anion Gap 11, BUN 38 H, Creatinine 0.99, Estim Creat Clear Calc 110.27, Est GFR (MDRD) Af Amer 117, Est GFR (MDRD) Non-Af 97, BUN/Creatinine Ratio 38.4 H, Glucose 113 H, Calcium 8.7, Total Bilirubin 1.20 H, AST 16, ALT 19, Alkaline Phosphatase 89, Total Protein 7.8, Albumin 4.0, Globulin 3.8, Albumin/Globulin Ratio 1.1 Rhythm Strip Rhythm Strip: Sinus Tach Rate: 115 Ectopy: None Physical Exam Narrative General: Alert, oriented, appears slightly uncomfortable HEENT: Atraumatic, normocephalic Eyes: Anicteric, normal conjunctiva, extraocular movements grossly intact Neck: Supple Respiratory: Clear to auscultation bilaterally, normal respiratory effort Cardiovascular: Regular rate and rhythm GI: Soft, nondistended, does report some generalized tenderness more so in the upper region of abdomen with no rebound, guarding, rigidity Extremities: No edema Musculoskeletal: Moving all extremities Neuro: No overt focal neurological deficits Skin: No rashes appreciated Psych: Cooperative Assessment & Plan Assessment/Plan (1) Polysubstance (including opioids) dependence with physiol dependence: (2) Abdominal pain, vomiting, and diarrhea: (3) Acute prerenal azotemia: (4) Acute opioid withdrawal: PLAN: Plan 1. Acute opioid withdrawal, patient with the use of heroin/fentanyl - Subutex taper initiated - As needed Tylenol, ibuprofen, bowel regimen, gabapentin, Bentyl, Vistaril, methocarbamol, clonidine - As needed trazodone nightly - As needed antiemetics -Once patient begins to clinically improve will discuss further discharge planning #Abdominal pain Nonspecific, reports burning somewhat generalized pain White blood cell count 11.5 which is minimally elevated but no left shift, total bili is 1.2 several days ago was 1.1 but has been elevated fairly consistently, AST ALT within normal limits and alk phos within normal limits Lipase 122 No rebound, guarding, rigidity on exam Did obtain CT abdomen given his reported severity of complaints and no acute process found May be having abdominal pain due to opioid withdrawal Continue Subutex We will check a.m. labs as well and continue supportive care 2. Polysubstance use, advise cessation 3. Acute kidney injury, patient with admitting creatinine 1.3, previous creatinine 0.77 Patient received IV fluids in the ED; will encourage liberal oral intake Will trend labs in a.m. 2/: Resolved 4. DVT PPx- Low risk; early ambulation recommended Time spent in the patient's overall evaluation,decision-making process, review of diagnostic data, adjustment of management, discussion with other providers, nursing nursing and ancillary staff involved in patient's care documentation, 30 minutes Charges/Coding Visit Charges Inpatient E&M: 67217 [facility] L2
[2022-04-24] MEDS: Buprenorphine HCl 2 MG TAB.SUBL SL ×2 (08:22→15:57)
[2022-04-24 08:30] VITALS: BP 134/94; PULSE 86; RESP 20; TEMP 37; O2SAT 99
[2022-04-24] MEDS: Mag Hydrox/Al Hydrox/Simeth 30 ML UDC PO ×2 (11:06→18:12)
--- NOTE | 2022-04-24 11:28 | CT_ITS ---
STUDY: CT ABDOMEN AND PELVIS WITH CONTRAST REASON FOR EXAM: Male, 26 years old. Abd pain, r/o pancreatitis vs appendicitis vs coli RADIATION DOSAGE (If Supplied By Facility): CTDIvol = ( 11.68 ) mGy, DLP = ( 537.50 ) mGycm TECHNIQUE: Transaxial images were obtained from the dome of the diaphragm to the symphysis pubis without oral contrast. IV 100mL Isovue-370 was administered. Sagittal and coronal images were reconstructed. Individualized dose optimization techniques were used for this CT. COMPARISON: Comparison is made with prior examination dated 02/19/2022. FINDINGS: The visualized lung bases are unremarkable. The visualized portions of the heart are within normal limits. Normal liver. Normal gallbladder and extrahepatic biliary system. Normal spleen. Normal pancreas. Normal bilateral adrenal glands. Normal right kidney. There is a 1.1 cm cyst in the upper pole of the left kidney. 1.1 cm cyst is also seen in the lower pole of the left kidney. Normal visualized stomach. Normal small intestine. Normal colon. The appendix is visualized and appears normal. Normal abdominal aorta. Normal inferior vena cava. Normal retroperitoneum. Normal urinary bladder. Normal abdominal wall. Normal osseous structures. CT/Abdomen/Pelvis W IV Cont ONLY IMPRESSION: Normal enhanced CT of the abdomen and pelvis. Electronically Signed: Dav Suazo MD at 13:18 EST ,
[2022-04-24 13:51] VITALS: BP 147/95; PULSE 81; RESP 18; TEMP 36.5; O2SAT 100
--- NOTE | 2022-04-24 16:11 | CHAPLAIN ---
Type of Pastoral Visit _x__ Initial Visit ___ Follow-up Visit ___ On-call Visit ___ General Patient Visit ___ Spiritual Assessment ___ Family Conference ___ Bereavement ___ Rapid Response ___ Code Blue ___ Other (describe below) Pastoral Care Referral From _x__ Patient ___ Family ___ Nurse ___ Physician ___ Leases And Land Supervisor ___ Radio Division Captain ___ Other (describe below) Sacrament/Intervention ___ Active listening ___ Anointing ___ Latter-Day ___ Bereavement ___ Communion ___ Maryam exploration ___ ___ Life review _x__ Prayer ___ Reconciliation ___ Sacrament of Sick _x__ Supportive presence ___ Wedding ___ Other (describe below) Pastoral Comments patient is resting in bed and polite; pt states that he is sleepy but requests a prayer for now; pt asks for prayer for his family, as well as for himself, and states that this senior application security consultant can return tomorrow to talk more
[2022-04-24] MEDS: Ensure Plus High Protein 120 ML LIQUID PO (17:07)
--- NOTE | 2022-04-24 17:50 | NURSING ---
This RN entered patient's room and visitors were present. This nurse left the room and spoke with charge poster to verify that patient had R[facility] paperwork signed and documented. After verifying that pt signed paperwork, this RN went back to room and explained to visitors/family that patient was unable to have visitors at this time, and they could call in for updates, the visitors then left.
[2022-04-24 18:15] VITALS: BP 135/95; PULSE 71; RESP 18; TEMP 36.7; O2SAT 100
[2022-04-24] MEDS: Gabapentin 300 MG Capsule PO (22:07)
[2022-04-24] MEDS: Ibuprofen 600 MG Tablet PO (22:07)
[2022-04-24 22:12] VITALS: BP 105/82; PULSE 91; RESP 18; TEMP 37.4; O2SAT 99
[2022-04-25] MEDS: Buprenorphine HCl 2 MG TAB.SUBL SL ×2 (00:49→07:53)
[2022-04-25 05:13] LABS: Absolute Lymphocyte Count 3.55 X10^3/uL (0.83-4.51); Absolute Neutrophil Count 5.1 X10^3/uL (2.0-7.7); Basophil# 0.05 X10^3/uL; Basophil% 0.5 % (0-1); Hemoglobin 14.8 g/dL (13.0-16.5); Lymphocyte # 3.55 X10^3/ul (0.83-4.51); Lymphocyte % 36.6 % (19-41); Mean Corp Hgb Conc 34.4 g/dL (32-36); Mean Corpuscular Hgb 28.4 pg (27.0-32.0); Mean Corpuscular Volume 82.5 fL (80-94); Mean Platelet Vol. 8.4 fl (6.2-12.0); Monocyte# 0.87 X10^3/uL; NRBC Flagged by Analyzer 0 % (0-5); Neutrophil # 5.09 X10^3/uL (2.7-7.7); Neutrophil % 52.5 % (47-70); Platelet Count 432 K/mm3 (150-450); RBC Distribution Width CV 12.4 % (11.6-14.6); RBC Distribution Width SD 37.7 fl (35.1-43.9); Red Blood Count 5.21 M/mm3 (4.6-6.2); White Blood Count 9.7 K/mm3 (4.4-11.0)
[2022-04-25] MEDS: hydrOXYzine PAM 25 MG Capsule 50 MG PO (05:24)
[2022-04-25] MEDS: Acetaminophen 500 MG Tablet PO (05:24)
[2022-04-25 05:26] VITALS: BP 130/81; PULSE 95; RESP 18; TEMP 37; O2SAT 96
[2022-04-25 06:06] LABS: ALB/GLOB Ratio 1.1 RATIO (0.9-2.4); AST(SGOT) 11 U/L (15-37); Alanine Aminotransfer ALT/SGPT 18 U/L (16-61); Albumin, Serum 3.9 g/dL (3.2-5.0); Alkaline Phosphatase 83 U/L (45-117); Anion Gap 8 (5-15); BUN 24 mg/dL (7-18); BUN/Creat Ratio 23.8 RATIO (10-20); Calcium,Total 8.8 mg/dL (8.5-10.1); Chloride 96 mmol/L (98-107); Creatinine, Serum 1.01 mg/dL (0.70-1.30); EST Glomerular Filtration Rate 95 mL/min (>60); Est Glom Filt Rate - Afr Amer 114 mL/min (>60); Estimated Creatinine Clearance 108.08 ml/min; Globulin 3.4 g/dL (2.2-4.2); Glucose 100 mg/dL (74-106); Potassium 3.6 mmol/L (3.5-5.1); Protein, Total 7.3 g/dL (6.4-8.2); Sodium Level 131 mmol/L (136-145)
[2022-04-25] MEDS: Ensure Plus High Protein 120 ML LIQUID PO (07:53)
--- NOTE | 2022-04-25 08:22 | PCM.PN.HOSP ---
Objective Data Objective Data Vital Signs: Vital Signs Temp Pulse Resp BP Pulse Ox O2 Del Method 98.6 F 95 18 130/81 H 96 Room Air 04/25/22 05:26 04/25/22 05:26 04/25/22 05:26 04/25/22 05:26 04/25/22 05:26 04/25/22 05:26 Oxygen Delivery Method Room Air Weight: 68.946 kg Body Mass Index (BMI) 19.5 Intake & Output: Intake and Output for Last 24 Hours 04/23/22 04/24/22 04/25/22 23:59 23:59 23:59 Intake Total 1000 / 1000 1030 / 1030 Balance 1000 / 1000 1030 / 1030 Medical Nutrition Assessment Dietitian: Malnutrition Criteria Met Start: 04/24/22 14:48 Freq: Status: Active Protocol: Document 04/24/22 14:48 AG (Rec: 04/24/22 14:48 AG [id number]) Nutrition Malnutrition Evidence of Malnutrition Exists Yes Malnutrition (moderate): Social/Behavioral/ Environmental Evidenced By Suboptimal Energy Intake ( Moderate),Physical Changes ( Moderate) Recommendation Dietitian Recommendations/Changes continue regular diet as tolerated; will add ensure plus high protein 120mL 4x/day w/ medpass for additional calories/protein if consumed Lab / Micro Data Result Diagrams: 04/25/22 04:40 04/25/22 04:40 Labs: Laboratory Results - last 24 hr 04/25/22 04:40: WBC 9.7, RBC 5.21, Hgb 14.8, Hct 43.0, MCV 82.5, MCH 28.4, MCHC 34.4, RDW Std Deviation 37.7, RDW Coeff of Cecilio 12.4, Plt Count 432, MPV 8.4, Immature Gran % (Auto) 0.400, Neut % (Auto) 52.5, Lymph % (Auto) 36.6, [place] % (Auto) 9.0, Eos % (Auto) 1.0, Baso % (Auto) 0.5, Absolute Neuts (auto) 5.1, Absolute Lymphs (auto) 3.55, Nucleated RBC % 0 04/25/22 04:40: Sodium 131 L, Potassium 3.6, Chloride 96 L, Carbon Dioxide 27.0, Anion Gap 8, BUN 24 H, Creatinine 1.01, Estim Creat Clear Calc 108.08, Est GFR (MDRD) Af Amer 114, Est GFR (MDRD) Non-Af 95, BUN/Creatinine Ratio 23.8 H, Glucose 100, Calcium 8.8, Total Bilirubin 1.30 H, AST 11 L, ALT 18, Alkaline Phosphatase 83, Total Protein 7.3, Albumin 3.9, Globulin 3.4, Albumin/Globulin Ratio 1.1 Radiography Diagnostic Testing: Radiology Impression Abdomen/Pelvis CT 04/24/22 11:28 IMPRESSION: Normal enhanced CT of the abdomen and pelvis. Electronically Signed: Dav Suazo MD at 13:18 EST , Rhythm Strip Rhythm Strip: Sinus Tach Rate: 115 Ectopy: None Assessment & Plan Assessment/Plan (1) Polysubstance (including opioids) dependence with physiol dependence: (2) Abdominal pain, vomiting, and diarrhea: (3) Acute prerenal azotemia: (4) Acute opioid withdrawal: PLAN: Plan 1. Acute opioid withdrawal, patient with the use of heroin/fentanyl - Subutex taper initiated - As needed Tylenol, ibuprofen, bowel regimen, gabapentin, Bentyl, Vistaril, methocarbamol, clonidine - As needed trazodone nightly - As needed antiemetics -Once patient begins to clinically improve will discuss further discharge planning #Abdominal pain Nonspecific, reports burning somewhat generalized pain White blood cell count 11.5 which is minimally elevated but no left shift, total bili is 1.2 several days ago was 1.1 but has been elevated fairly consistently, AST ALT within normal limits and alk phos within normal limits Lipase 122 No rebound, guarding, rigidity on exam Did obtain CT abdomen given his reported severity of complaints and no acute process found May be having abdominal pain due to opioid withdrawal Continue Subutex We will check a.m. labs as well and continue supportive care 2. Polysubstance use, advise cessation 3. Acute kidney injury, patient with admitting creatinine 1.3, previous creatinine 0.77 Patient received IV fluids in the ED; will encourage liberal oral intake Will trend labs in a.m. 2/: Resolved 4. DVT PPx- Low risk; early ambulation recommended Time spent in the patient's overall evaluation,decision-making process, review of diagnostic data, adjustment of management, discussion with other providers, nursing nursing and ancillary staff involved in patient's care documentation, 30 minutes
--- NOTE | 2022-04-25 10:03 | CASEMGMT ---
DARIN met with patient as he is self pay. DARIN introduced self and role at [facility]. DARIN provided patient with a packet with self pay resources including [employer], Sherin Aguirre, [facility] financial assistance, list of prescription assistance programs, and Medicaid application. Patient told DARIN he is ready to leave. DARIN let patient know Nikko the cash reconciliation specialist will be in to see him today. Patient said he doesn't want her to come in to see him. SW told patient that is part of the program. Patient said he would talk with Nikko. Carmina EVANS
[2022-04-25 11:30] VITALS: BP 119/85; PULSE 97; RESP 18; TEMP 36.5; O2SAT 97
--- NOTE | 2022-04-25 11:42 | ADDICTION ---
This automobile service writer met with PT to conduct ASAM, MSE, AUDIT, DUDIT assessments and to plan for d/c. PT A+Ox4 and participated actively. All assessments completed and placed in PT's chart. PT plans to f/u with [facility] for outpatient treatment services. PT did not indicate a need for transportation post d/c from [facility].
--- NOTE | 2022-04-25 11:57 | CHAPLAIN ---
Type of Pastoral Visit _x__ Initial Visit ___ Follow-up Visit ___ On-call Visit ___ General Patient Visit ___ Spiritual Assessment ___ Family Conference ___ Bereavement ___ Rapid Response ___ Code Blue ___ Other (describe below) Pastoral Care Referral From _x__ Patient ___ Family ___ Nurse ___ Physician ___ Brush Trimming Machine Setter ___ Baggage Clerk ___ Other (describe below) Sacrament/Intervention _x__ Active listening ___ Anointing ___ Sabianist ___ Bereavement ___ Communion _x__ Maryam exploration ___ ___ Life review _x__ Prayer ___ Reconciliation ___ Sacrament of Sick _x__ Supportive presence ___ Wedding ___ Other (describe below) Pastoral Comments patient is polite and asks for a prayer because I'm going home soon; when asked what he plans to do for recovery the patient responded I need to get back to evangelical because I do better when I do and this happens in the winter because I'm not outside and working, so I need to not be cooped up in the house with nothing to do; pt states that he has supportive parents, that he has been some really top rehab places and I know what I need to do, but I just need to do it; pt says he would like to help people someday as his life goal; gave affirmation of goals, supportive listening, and prayer as requested; pt expresses appreciation for time given and for the work you do
--- NOTE | 2022-04-25 12:11 | DCINST_ITS ---
Discharge Instructions Diet Discharge Diet: No restrictions Activity Discharge Activity: Return to Normal Activity Follow Up Care Test Results: Test results from this visit will be discussed in further detail at your follow- up appointment, if applicable. Discharge Plan Admission Admit Date/Time: 04/23/22 22:22 Primary Reason for Your Visit: Detox Attending Provider: Yudelka Hernandez Primary Care Provider: Stacy Gomez Consulting Providers: Tory Chirinos Instructions Patient Instructions: ED Opiate Abuse, ED Opioid Withdrawal Additional Instructions / Restrictions: Follow-up 180 on discharge Discharge Orders/Prescriptions Prescriptions: Continued albuterol 90 mcg/actuation Aerosol 90 mcg INHALATION Referrals / Follow Up: Stacy Gomez, PA [Primary Care Provider] - Within 1 Week Disposition Disposition (needs filled in before D/C Order can be placed): Home, Self Care
--- NOTE | 2022-04-25 12:13 | DS.PCM_ITS ---
Providers Date of Admission: 04/23/22 Date of Discharge: 04/25/22 Primary Care Physician: EVELYN Phan Reason For Visit: ACUTE OPIATE WITHDRAWAL Diagnosis Discharge Diagnosis (1) Polysubstance (including opioids) dependence with physiol dependence: Status: Acute Code(s): F19.20 - Other psychoactive substance dependence, uncomplicated (2) Abdominal pain, vomiting, and diarrhea: Status: Acute Code(s): R10.9 - Unspecified abdominal pain; R11.10 - Vomiting, unspecified; R19.7 - Diarrhea, unspecified (3) Acute prerenal azotemia: Status: Acute Code(s): N19 - Unspecified kidney failure (4) Acute opioid withdrawal: Status: Acute Code(s): F11.93 - Opioid use, unspecified with withdrawal Plan 1. Acute opioid withdrawal, patient with the use of heroin/fentanyl 2. Polysubstance use, advise cessation 3. SEAN resolved Medications at Discharge Home Medications albuterol 90 mcg/actuation aerosol inhaler 90 mcg inhalation 03/02/22 Hospital Course Summary of Care Provided Minutes Spent on Discharge: 20 Hospital Course: 20-year-old male with a history of polysubstance use presented for opioid detox. He completed a partial opioid taper but was doing much better and was no longer feeling withdrawal symptoms and requested to be discharged with outpatient follow-up. Discussed with [facility] addiction day care home mother Nikko and it was deemed discharge and follow-up with 180 on an outpatient basis. On day of discharge patient no complaints. Of note during hospitalization however on presentation he did report some abdominal pain and had a minimally elevated white blood cell count and was given fluids, in the a.m. he reported abdominal pain and burning and was sent for CT scan as lab work-up on remarkable and CT scan also unrevealing. Initially had SEAN but that resolved with fluids and oral intake. Abdominal burning and discomfort resolved independently and patient discharged in stable condition for follow-up with 180 Physical Exam Narrative General: Alert, oriented, no apparent distress HEENT: Atraumatic, normocephalic Eyes: extraocular movements grossly intact Neck: Supple Respiratory: normal respiratory effort Cardiovascular: no edema appreciated GI: nondistended Extremities: Moving all extremities Neuro: No overt focal neurological deficits Psych: Cooperative Medical Records Data Medical Nutrition Assessment Dietitian: Malnutrition Criteria Met Start: 02/01/23 14:48 Freq: Status: Active Protocol: Document 04/24/22 14:48 AG (Rec: 04/24/22 14:48 AG [id number]) Nutrition Malnutrition Evidence of Malnutrition Exists Yes Malnutrition (moderate): Social/Behavioral/ Environmental Evidenced By Suboptimal Energy Intake ( Moderate),Physical Changes ( Moderate) Recommendation Dietitian Recommendations/Changes continue regular diet as tolerated; will add ensure plus high protein 120mL 4x/day w/ medpass for additional calories/protein if consumed Weight / BMI Weight Weight: 68.946 kg Body Mass Index (BMI) 19.5 ABG / Lab / Microbiology Data Result Diagrams: 04/25/22 04:40 04/25/22 04:40 Laboratory: Laboratory Results - last 24 hr 04/25/22 04:40: WBC 9.7, RBC 5.21, Hgb 14.8, Hct 43.0, MCV 82.5, MCH 28.4, MCHC 34.4, RDW Std Deviation 37.7, RDW Coeff of Cecilio 12.4, Plt Count 432, MPV 8.4, Immature Gran % (Auto) 0.400, Neut % (Auto) 52.5, Lymph % (Auto) 36.6, [place] % (Auto) 9.0, Eos % (Auto) 1.0, Baso % (Auto) 0.5, Absolute Neuts (auto) 5.1, Absolute Lymphs (auto) 3.55, Nucleated RBC % 0 04/25/22 04:40: Sodium 131 L, Potassium 3.6, Chloride 96 L, Carbon Dioxide 27.0, Anion Gap 8, BUN 24 H, Creatinine 1.01, Estim Creat Clear Calc 108.08, Est GFR (MDRD) Af Amer 114, Est GFR (MDRD) Non-Af 95, BUN/Creatinine Ratio 23.8 H, Glucose 100, Calcium 8.8, Total Bilirubin 1.30 H, AST 11 L, ALT 18, Alkaline Phosphatase 83, Total Protein 7.3, Albumin 3.9, Globulin 3.4, Albumin/Globulin Ratio 1.1 Radiography Diagnostic Testing: Radiology Impression Abdomen/Pelvis CT 04/24/22 11:28 IMPRESSION: Normal enhanced CT of the abdomen and pelvis. Electronically Signed: Dav Suazo MD at 13:18 EST , D/C Instructions Discharge Diet: No restrictions Meaningful Use Info Meaningful Use Diagnoses (Choose all that apply): None applicable Discharge Plan Admission Admit Date/Time: 04/23/22 22:22 Primary Reason for Your Visit: Detox Attending Provider: Yudelka Hernandez Primary Care Provider: Stacy Gomez Consulting Providers: Tory Chirinos Instructions Patient Instructions: ED Opiate Abuse, ED Opioid Withdrawal Additional Instructions / Restrictions: Follow-up 180 on discharge Discharge Orders/Prescriptions Prescriptions: Continued albuterol 90 mcg/actuation Aerosol 90 mcg INHALATION Referrals / Follow Up: Stacy Gomez PA [Primary Care Provider] - Within 1 Week Disposition Disposition (needs filled in before D/C Order can be placed): Home, Self Care Charges/Coding Visit Charges Inpatient E&M: 41006 [facility]
== END 2022-04-25 13:15 | disposition home or self-care (01) | DRG 897 ==
LOC: ED 22:01 → PCU 22:46
PROVIDERS: Admitting Provider Internal Medicine; Emergency Provider Emergency Medicine; PCP Physician Assistant; Visit Provider Internal Medicine
DX: F11.23 Opioid dependence with withdrawal (principal); E44.0 Moderate protein-calorie malnutrition; N17.9 Acute kidney failure, unspecified; F19.20 Other psychoactive substance dependence, uncomplicated; Z68.1 Body mass index [BMI] 19.9 or less, adult; E88.89 Other specified metabolic disorders; F12.10 Cannabis abuse, uncomplicated; R19.7 Diarrhea, unspecified; R11.10 Vomiting, unspecified; F17.210 Nicotine dependence, cigarettes, uncomplicated; R10.9 Unspecified abdominal pain
CPT/HCPCS: 36415; 74177; 80048; 80053; 80076; 80307; 81001; 82077; 83690; 85025; 97802; 99284; J7030; Q9967; A4216; J2405

== ENCOUNTER 2022-05-01 18:54 | Emergency (ER) | payer MEDICAID, SELFPAY ==
[2022-05-01 18:55] VITALS: BP 148/86; PULSE 137; RESP 24; TEMP 36.3; O2SAT 100; BMI 21.2
[2022-05-01] MEDS: 0.9% Normal Saline 1,000 ML 999 ML IV ×2 (22:19→23:51)
--- NOTE | 2022-05-01 22:32 | EDS_ITS ---
HPI History of Present Illness Chief Complaint: Overdose Narrative Narrative: 26-year-old male overdosed at home on opioids. He states he uses heroin typically but he thinks is fentanyl. States that all is available anymore. Patient states he had not used in a week because he was trying to quit but overdosed tonight unintentionally. He was given Narcan and did awaken. He is not sure if he did any other drugs. He does not drink alcohol. He states that he has been in rehab several times and has completed it but always falls back on it. He believes it is worse during the winter when he has idle time. In the summer he seems to be able to keep his ear. Patient request detox today [facility] Medical History Asthma Tobacco abuse Home Medications albuterol 90 mcg/actuation aerosol inhaler 90 mcg inhalation 03/02/22 [History Last Taken Unknown] Allergy/AdvReac Type Severity Reaction Status Date / Time amoxicillin trihydrate Allergy Rash Verified 05/01/22 18:55 [From Augmentin] potassium clavulanate Allergy Rash Verified 05/01/22 18:55 [From Augmentin] Family History Brother Hemophilia Father Diabetes Surgical History History of tonsillectomy Social History Smoking Status: Former smoker alcohol intake: current alcohol intake frequency: holidays/special occasions only substance use type: marijuana, heroin, opiates and other details: Fentanyl ROS ROS ED Constitutional Constitutional ED: Denies chills or fever(s) Eyes Eyes: Denies change in vision or diplopia ENT ENT ED: Denies rhinorrhea or sore throat Cardiovascular Cardiovascular: Denies chest pain or palpitations Respiratory/Chest Respiratory/Chest: Denies cough or dyspnea Gastrointestinal Gastrointestinal: Denies abdominal pain or constipation Genitourinary Genitourinary ED: Denies dysuria Musculoskeletal Musculoskeletal: Denies arthralgias Integumentary Denies abscess Neurologic Neurologic: Denies headache(s) or paresthesias Psychiatric Psychiatric: Denies depression, suicidal ideation or suicidal thoughts Endocrine Endocrinology: Denies cold intolerance or heat intolerance EXAM Physical Exam Const Vital Signs: 05/01/22 18:55 05/01/22 22:44 Temperature 97.4 F L Temperature Source Temporal Pulse Rate 137 H 110 H Respiratory Rate 24 H Blood Pressure 148/86 H 134/94 H Blood Pressure Mean 106 107 Pulse Ox 100 98 Oxygen Delivery Method Room Air Room Air Positive well nourished General Appearance ED: NAD; Negative for pallor HEENT Reports moist mucous membranes Eyes PERRL and EOMs intact bilaterally Neck no lymphadenopathy Resp normal respiratory effort and clear to auscultation bilaterally Auscultation: Negative for rales, rhonchi or wheezes Cardio regular rhythm Rate: tachycardic GI soft to palpation and non-tender Back/Spine no CVA tenderness Neuro oriented x3 and CN's II-XII intact bilaterally Sensorium / Orientation: alert Psych mental status grossly normal Skin General Skin Exam: Negative for jaundice or pallor MDM MDM MDM Narrative Medical decision making narrative: Patient presenting after overdose. He believes he snorted fentanyl. He required Narcan. He has been awake and alert since. He request detox. Medical clearance labs were obtained. CBC to assess white blood cell count, hemoglobin, differential. BMP to assess renal function, electrolytes, CO2, anion gap. EtOH was obtained as well as urine drug screen. Patient significantly tachycardic on arrival. He was ordered 2 L of IV fluids. Because of his tachypnea and tachycardia I did obtain a chest x-ray to rule out pneumonia. On my interpretation this is negative for acute process. CBC shows a leukocytosis of 24.4. Hemoglobin stable at 12.2. Platelets normal. Renal function is normal with slight prerenal azotemia. Electrolytes within normal limits. EtOH negativ e. Urinalysis negative for infection. Drug screen was positive for amphetamines today and cannabinoids. Discussed the patient with the hospitalist and he did not believe the patient would need to be admitted if he is not going to be in withdrawal. The patient is very adamant that he does not think he is going through withdrawal. At this point I talked to him about following up with his counselor at [facility]. He was amenable to this. I spoke with him at length with his parents as well. They will take him home. Impression: 1. Opioid abuse 2. Opioid overdose 3. Leukocytosis 4. Tachycardia Lab Data Attestation: I reviewed the patient's lab results. Labs: Laboratory Results - last 24 hr 05/01/22 05/01/22 05/01/22 23:29 23:29 23:29 WBC 24.4 H RBC 4.20 L Hgb 12.2 L Hct 35.5 L MCV 84.5 MCH 29.0 MCHC 34.4 RDW Std Deviation 40.4 RDW Coeff of Cecilio 13.1 Plt Count 437 MPV 8.5 Immature Gran % (Auto) 1.600 H Neut % (Auto) 83.1 H Lymph % (Auto) 6.9 L Evans % (Auto) 8.2 Eos % (Auto) 0.0 Baso % (Auto) 0.2 Absolute Neuts (auto) 20.3 H Absolute Lymphs (auto) 1.68 Nucleated RBC % 0 Diff Path Review May foll Sodium 145 Potassium 4.0 Chloride 114 H Carbon Dioxide 27.0 Anion Gap 4 L BUN 34 H Creatinine 1.29 Estim Creat Clear Calc 91.86 Est GFR (MDRD) Af Amer 86 Est GFR (MDRD) Non-Af 71 BUN/Creatinine Ratio 26.4 H Glucose 104 Calcium 7.8 L Urine Color Urine Clarity Urine pH Ur Specific [place] Urine Protein Urine Glucose (UA) Urine Ketones Urine Occult Blood Urine Nitrite Urine Bilirubin Urine Urobilinogen Ur Leukocyte Esterase Urine RBC Urine WBC Ur Squamous Epith Cells Amorphous Sediment Urine Bacteria Urine Mucus Urine Opiates Screen Urine Methadone Screen Ur Barbiturates Screen Ur Phencyclidine Scrn Ur Amphetamines Screen MDMA (Ecstasy) Screen U Benzodiazepines Scrn Urine Cocaine Screen U Cannabinoids Screen Ur Drug Screen Comment Ethyl Alcohol < 3.0 05/01/22 05/01/22 23:53 23:53 WBC RBC Hgb Hct MCV MCH MCHC RDW Std Deviation RDW Coeff of Cecilio Plt Count MPV Immature Gran % (Auto) Neut % (Auto) Lymph % (Auto) Evans % (Auto) Eos % (Auto) Baso % (Auto) Absolute Neuts (auto) Absolute Lymphs (auto) Nucleated RBC % Diff Path Review Sodium Potassium Chloride Carbon Dioxide Anion Gap BUN Creatinine Estim Creat Clear Calc Est GFR (MDRD) Af Amer Est GFR (MDRD) Non-Af BUN/Creatinine Ratio Glucose Calcium Urine Color Yellow Urine Clarity Clear Urine pH 6.0 Ur Specific [place] 1.020 Urine Protein 100 H Urine Glucose (UA) Normal Urine Ketones 5 H Urine Occult Blood 150 H Urine Nitrite Negative Urine Bilirubin Negative Urine Urobilinogen Normal Ur Leukocyte Esterase Negative Urine RBC 5-10 SEEN Urine WBC 5-10 SEEN Ur Squamous Epith Cells 0 SEEN Amorphous Sediment 1+ Urine Bacteria 1+ Urine Mucus 0 SEEN Urine Opiates Screen NEGATIVE Urine Methadone Screen NEGATIVE Ur Barbiturates Screen NEGATIVE Ur Phencyclidine Scrn NEGATIVE Ur Amphetamines Screen POSITIVE H MDMA (Ecstasy) Screen NEGATIVE U Benzodiazepines Scrn NEGATIVE Urine Cocaine Screen NEGATIVE U Cannabinoids Screen POSITIVE H Ur Drug Screen Comment Ethyl Alcohol Radiography Diagnostic Testing: Clinical Impression(s) from Imaging Studies Chest X-Ray 05/01/22 23:43 IMPRESSION: No radiographic evidence of acute cardiopulmonary disease. Electronically Signed: Bernard Monet MD at 0:04 EST , Discharge Plan Triage Chief Complaint: Overdose ED Provider: Akash Saucedo Dx/Rx/DC Orders Prescriptions: No Action albuterol 90 mcg/actuation Aerosol 90 mcg INHALATION Primary Care Provider: Stacy Gomez Referrals: Stacy Gomez, PA [Primary Care Provider] -
[2022-05-01 22:44] VITALS: BP 134/94; PULSE 110; O2SAT 98
[2022-05-01 23:38] LABS: Absolute Lymphocyte Count 1.68 X10^3/uL (0.83-4.51); Absolute Neutrophil Count 20.3 X10^3/uL (2.0-7.7); Basophil# 0.04 X10^3/uL; Basophil% 0.2 % (0-1); Hematocrit 35.5 % (40-54); Hemoglobin 12.2 g/dL (13.0-16.5); Lymphocyte # 1.68 X10^3/ul (0.83-4.51); Lymphocyte % 6.9 % (19-41); Mean Corp Hgb Conc 34.4 g/dL (32-36); Mean Corpuscular Volume 84.5 fL (80-94); Mean Platelet Vol. 8.5 fl (6.2-12.0); Monocyte# 1.99 X10^3/uL; Monocyte% 8.2 % (0-10); NRBC Flagged by Analyzer 0 % (0-5); Neutrophil # 20.29 X10^3/uL (2.7-7.7); Neutrophil % 83.1 % (47-70); POSITIVE DIFFERENTIAL YES; Platelet Count 437 K/mm3 (150-450); RBC Distribution Width CV 13.1 % (11.6-14.6); RBC Distribution Width SD 40.4 fl (35.1-43.9); White Blood Count 24.4 K/mm3 (4.4-11.0)
[2022-05-01 23:42] LABS: Differential Indicated SCAN CRITERIA MET
--- NOTE | 2022-05-01 23:43 | RAD_ITS ---
EXAM: XR CHEST, 1 VIEW CLINICAL INDICATION: Altered mental TECHNIQUE: Frontal view of the chest. This report was created using Stretch report generation technology. COMPARISON: Chest radiograph report of 04/06/2012. FINDINGS: Lordotic positioning. LUNGS AND PLEURAL SPACES: Unremarkable. No consolidation or edema. No pneumothorax. No effusion. HEART: Unremarkable. Cardiac silhouette not enlarged. Normal pulmonary vascularity. MEDIASTINUM: Central airways and mediastinal contour are unremarkable. No mediastinal widening. Trachea is midline. BONES/JOINTS: No acute osseous abnormality. SOFT TISSUES: Unremarkable. RAD/Chest 1 View (Portable) IMPRESSION: No radiographic evidence of acute cardiopulmonary disease. Electronically Signed: Bernard Monet MD at 0:04 EST ,
[2022-05-01 23:55] LABS: Alcohol, Blood (Medical)-Serum < 3.0 mg/dL
[2022-05-01 23:57] LABS: Mucous, Urine 0 SEEN /hpf (<or=2+); Squamous Epithelial Cells - UA 0 SEEN /hpf (0-5)
[2022-05-01 23:57] LABS: Anion Gap 4 (5-15); BUN 34 mg/dL (7-18); BUN/Creat Ratio 26.4 RATIO (10-20); Calcium,Total 7.8 mg/dL (8.5-10.1); Chloride 114 mmol/L (98-107); Creatinine, Serum 1.29 mg/dL (0.70-1.30); EST Glomerular Filtration Rate 71 mL/min (>60); Est Glom Filt Rate - Afr Amer 86 mL/min (>60); Estimated Creatinine Clearance 91.86 ml/min; Glucose 104 mg/dL (74-106); Sodium Level 145 mmol/L (136-145)
[2022-05-01 23:58] LABS: Color, Urine Yellow (Yellow); Glucose, Dipstick Normal (Normal); Ketone-Dipstick 5 mg/dl (Negative); Leukocyte Esterase-Dipstick Negative /ul (Negative); Nitrite-Dipstick Negative (Negative); Occult Blood-Urine 150 /ul (Negative); Protein-Dipstick 100 mg/dl (Negative); Urine Bilirubin Dipstick Negative (Negative); Urine Clarity Clear (Clear); Urine Urobilinogen Normal (Normal)
[2022-05-02 00:09] LABS: Amorphous Sediment 1+; Bacteria 1+ /hpf (None Seen); Red Blood Cells-Urine 5-10 SEEN /hpf (0-5); White Blood Cells 5-10 SEEN /hpf (0-5)
[2022-05-02 00:13] LABS: Amphetamine Urine VISTA POSITIVE (<1000 ng/mL); Barbiturate Urine VISTA NEGATIVE (< 200 ng/mL); Benzodiazepine Urine VISTA NEGATIVE (< 200 ng/mL); Cocaine Urine VISTA NEGATIVE (< 300 ng/mL); Ecstacy Urine VISTA NEGATIVE (< 500 ng/mL); Methadone Urine VISTA NEGATIVE (< 300 ng/mL); PCP Urine VISTA NEGATIVE (< 25 ng/mL); THC Urine VISTA POSITIVE (< 50 ng/mL); Vista UDS pH Range 6
[2022-05-02 14:09] LABS: Pathologist Review Reviewed
== END 2022-05-02 00:48 | disposition home or self-care (01) ==
PROVIDERS: Emergency Provider Student in an Organized Health Care Education/Training Program; PCP Physician Assistant; Visit Provider Student in an Organized Health Care Education/Training Program
DX: T40.2X1A Poisoning by other opioids, accidental (unintentional), initial encounter (principal); F11.10 Opioid abuse, uncomplicated; F12.90 Cannabis use, unspecified, uncomplicated; Z87.891 Personal history of nicotine dependence; R00.0 Tachycardia, unspecified; J45.909 Unspecified asthma, uncomplicated
CPT/HCPCS: 71045; 80048; 80307; 81001; 82077; 85025; 96360; 99284; J7030; A4216

== ENCOUNTER 2022-09-14 21:40 | Inpatient (IN) | payer MEDICAID, SELFPAY ==
[2022-09-14 21:41] VITALS: BP 104/89; PULSE 117; RESP 16; TEMP 37; O2SAT 98; BMI 21.4
--- NOTE | 2022-09-14 22:07 | EDS_ITS ---
HPI History of Present Illness Chief Complaint: Substance Abuse Informant: patient Narrative Narrative: Patient presents requesting detox from fentanyl. Patient states he uses about a half a gram sometimes more day of what he thinks is fentanyl. He states he knows that people makes other things in with it but his focus is fentanyl. He snorts it. He has never injected it. He does not drink alcohol. He has gone through detox once and followed up with [facility]. He stayed clean for about 2 months. He states he is just tired of living life like this and wants to get off of the chemical. Nothing else caused presentation. He has no physical complaints at this time. When he attempts to quit, he gets severe nausea vomiting anxiety and then he gets muscle aches and cramps. His last use was about 5 hours ago now. He tried to detox yesterday on his own. Af ter about 12 hours he started vomiting badly. He used again. He is able to eat and drink and the vomiting is gone now. He has a history of getting severely dehydrated and even had an acute kidney injury once from this dehydration. He does not feel as though he is to that point yet but he does feel somewhat dehydrated. [facility] Medical History Acute opioid withdrawal Asthma Cannabis abuse Polysubstance (including opioids) dependence with physiol dependence Tobacco abuse Home Medications trazodone 100 mg tablet 100 mg PO QHS PRN PRN sleep] 09/14/22 [History Last Taken Unknown] Allergy/AdvReac Type Severity Reaction Status Date / Time amoxicillin trihydrate Allergy Rash Verified 09/14/22 21:41 [From Augmentin] potassium clavulanate Allergy Rash Verified 09/14/22 21:41 [From Augmentin] Family History Brother Hemophilia Father Diabetes Surgical History History of tonsillectomy Social History Smoking Status: Current every day smoker tobacco type: cigarettes alcohol intake: current alcohol intake frequency: holidays/special occasions only substance use type: marijuana, heroin, opiates and other details: Fentanyl ROS ROS ED Constitutional Constitutional ED: Denies chills, fever(s) or subjective Eyes Eyes: Denies change in vision ENT ENT ED: Denies sore throat Cardiovascular Cardiovascular: Denies chest pain or palpitations Respiratory/Chest Respiratory/Chest: Denies cough Gastrointestinal Gastrointestinal: Reports other Details: See history of present illness. ; Denies diarrhea or vomiting Genitourinary Genitourinary ED: Denies urinary frequency Musculoskeletal Musculoskeletal: Denies myalgias Integumentary Denies rash Neurologic Neurologic: Denies headache(s) Psychiatric Psychiatric: Reports anxiety; Denies suicidal ideation or suicidal thoughts Hematologic/Lymphatic Hematologic/Lymphatic: Denies easy bleeding or easy bruising Allergic/Immunologic Allergic/Immunologic ED: Denies urticaria EXAM Physical Exam Narrative Exam Narrative: CONSTITUTIONAL: Patient is nontoxic in appearance. The patient looks comfortable. HEENT: No notable trauma. Mucous membranes do look slightly dry. No sinus tenderness. No indication of pain with swallowing. EYES: No conjunctival injection. No proptosis. CARDIOVASCULAR: Regular rate. Regular rhythm. No notable murmur. No JVD. RESPIRATORY: No respiratory distress. Breathing is unlabored. No wheezes. No rhonchi. No rales. No pain with a deep breath. GASTROINTESTINAL: Not distended. Bowel sounds are normal. No tenderness. No guarding. No rebound. No palpable mass. No bruit. GENITOURINARY: No tenderness over the bladder. No CVA tenderness. MUSCULOSKELETAL: Atraumatic. No peripheral edema. No cord. No tenderness along the deep venous system. No asymmetry. NEUROLOGICAL: Patient is alert and appropriate. No focal deficit noted. SKIN: No noted rashes. No diaphoresis. No track duke are noted consistent with his history. PSYCHIATRIC: Patient is calm. Mood is appropriate. Flight of ideas. Const Vital Signs: 09/14/22 21:41 09/14/22 23:53 Temperature 98.6 F 98.5 F Temperature Source Temporal Oral Pulse Rate 117 H 94 Respiratory Rate 16 16 Blood Pressure 104/89 H 138/91 H Blood Pressure Mean 94 106 Pulse Ox 98 98 Oxygen Delivery Method Room Air MDM MDM MDM Narrative Medical decision making narrative: Patient CBC showed mild elevation of white count and of the hemoglobin. This might be due to some mild dehydration but is nonspecific. Patient's electrolytes showed mildly low sodium potassium. BUN was slightly high but creatinine had not acutely risen at this time. Liver function test show no marked abnormalities from the past. Alcohol level is negative. Urine tox screens shows positive opiates but also positive for cannabis methamphetamines and MDMA. Patient does have some signs of clinical and laboratory dehydration. But he is able to eat and drink. He was given IV fluids here. I discussed case with the hospitalist and he will be admitted. Lab Data Attestation: I reviewed the patient's lab results. Labs: Laboratory Results - last 24 hr 09/14/22 09/14/22 09/14/22 22:15 22:15 22:15 WBC 12.6 H RBC 6.23 H Hgb 17.3 H Hct 48.6 MCV 78.0 L MCH 27.8 MCHC 35.6 RDW Std Deviation 33.5 L RDW Coeff of Cecilio 11.9 Plt Count 345 MPV 9.5 Immature Gran % (Auto) 0.400 Neut % (Auto) 77.1 H Lymph % (Auto) 14.1 L Barnes % (Auto) 8.1 Eos % (Auto) 0.1 Baso % (Auto) 0.2 Absolute Neuts (auto) 9.7 H Absolute Lymphs (auto) 1.77 Nucleated RBC % 0 Sodium 129 L Potassium 3.3 L Chloride 92 L Carbon Dioxide 26.0 Anion Gap 11 BUN 22 H Creatinine 1.14 Estim Creat Clear Calc 105.15 Est GFR (MDRD) Af Amer 99 Est GFR (MDRD) Non-Af 82 BUN/Creatinine Ratio 19.3 Glucose 115 H Calcium 9.9 Total Bilirubin 1.10 H AST 26 ALT 29 Alkaline Phosphatase 121 H Total Protein 8.9 H Albumin 4.7 Globulin 4.2 Albumin/Globulin Ratio 1.1 Urine Opiates Screen Urine Methadone Screen Ur Barbiturates Screen Ur Phencyclidine Scrn Ur Amphetamines Screen MDMA (Ecstasy) Screen U Benzodiazepines Scrn Urine Cocaine Screen U Cannabinoids Screen Ur Drug Screen Comment Ethyl Alcohol < 3.0 09/14/22 23:06 WBC RBC Hgb Hct MCV MCH MCHC RDW Std Deviation RDW Coeff of Cecliio Plt Count MPV Immature Gran % (Auto) Neut % (Auto) Lymph % (Auto) Barnes % (Auto) Eos % (Auto) Baso % (Auto) Absolute Neuts (auto) Absolute Lymphs (auto) Nucleated RBC % Sodium Potassium Chloride Carbon Dioxide Anion Gap BUN Creatinine Estim Creat Clear Calc Est GFR (MDRD) Af Amer Est GFR (MDRD) Non-Af BUN/Creatinine Ratio Glucose Calcium Total Bilirubin AST ALT Alkaline Phosphatase Total Protein Albumin Globulin Albumin/Globulin Ratio Urine Opiates Screen POSITIVE H Urine Methadone Screen NEGATIVE Ur Barbiturates Screen NEGATIVE Ur Phencyclidine Scrn NEGATIVE Ur Amphetamines Screen POSITIVE H MDMA (Ecstasy) Screen POSITIVE H U Benzodiazepines Scrn NEGATIVE Urine Cocaine Screen NEGATIVE U Cannabinoids Screen POSITIVE H Ur Drug Screen Comment Ethyl Alcohol Management Discussion w/another healthcare provider: Hospitalist Discharge Plan Triage Chief Complaint: Substance Abuse ED Provider: Boston Menendez Dx/Rx/DC Orders Clinical Impression: Opiate addiction, Desire for detoxification, Mild dehydration Primary Care Provider: Stacy Gomez Disposition Disposition: Acute Care Hospital [facility]
[2022-09-14] MEDS: 0.9% Normal Saline 1,000 ML 1000 ML IV (22:25)
[2022-09-14 22:35] LABS: Absolute Lymphocyte Count 1.77 X10^3/uL (0.83-4.51); Absolute Neutrophil Count 9.7 X10^3/uL (2.0-7.7); Basophil# 0.02 X10^3/uL; Basophil% 0.2 % (0-1); Eosinophil# 0.01 X10^3/uL; Eosinophils% 0.1 % (0-5); Hematocrit 48.6 % (40-54); Hemoglobin 17.3 g/dL (13.0-16.5); Lymphocyte # 1.77 X10^3/ul (0.83-4.51); Lymphocyte % 14.1 % (19-41); Mean Corp Hgb Conc 35.6 g/dL (32-36); Mean Corpuscular Hgb 27.8 pg (27.0-32.0); Mean Platelet Vol. 9.5 fl (6.2-12.0); Monocyte# 1.02 X10^3/uL; Monocyte% 8.1 % (0-10); NRBC Flagged by Analyzer 0 % (0-5); Neutrophil # 9.68 X10^3/uL (2.7-7.7); Neutrophil % 77.1 % (47-70); Platelet Count 345 K/mm3 (150-450); RBC Distribution Width CV 11.9 % (11.6-14.6); RBC Distribution Width SD 33.5 fl (35.1-43.9); Red Blood Count 6.23 M/mm3 (4.6-6.2); White Blood Count 12.6 K/mm3 (4.4-11.0)
[2022-09-14 22:56] LABS: ALB/GLOB Ratio 1.1 RATIO (0.9-2.4); AST(SGOT) 26 U/L (15-37); Alanine Aminotransfer ALT/SGPT 29 U/L (16-61); Albumin, Serum 4.7 g/dL (3.2-5.0); Alkaline Phosphatase 121 U/L (45-117); Anion Gap 11 (5-15); BUN 22 mg/dL (7-18); BUN/Creat Ratio 19.3 RATIO (10-20); Calcium,Total 9.9 mg/dL (8.5-10.1); Chloride 92 mmol/L (98-107); Creatinine, Serum 1.14 mg/dL (0.70-1.30); EST Glomerular Filtration Rate 82 mL/min (>60); Est Glom Filt Rate - Afr Amer 99 mL/min (>60); Estimated Creatinine Clearance 105.15 ml/min; Globulin 4.2 g/dL (2.2-4.2); Glucose 115 mg/dL (74-106); Potassium 3.3 mmol/L (3.5-5.1); Protein, Total 8.9 g/dL (6.4-8.2); Sodium Level 129 mmol/L (136-145)
[2022-09-14 23:14] LABS: Alcohol, Blood (Medical)-Serum < 3.0 mg/dL
--- NOTE | 2022-09-14 23:40 | HP.PCM.HOS_ITS ---
HPI - General General Date of Admission: 09/15/22 Date of Service: 09/15/22 Chief Complaint: Desire for detoxification HPI Narrative BRYAN LUNDBERG, is a 26 M with a significant for tobacco abuse and fentanyl abuse who presents to the emergency department with a desire to get detoxification. Patient admits to snorting about half a gram of Fentanyl per day. He began using since he was age 16 years. He has been using on and off as he has been to rehab multiple times. Last time he used was about 2 to 3 hours before presentation. He tried detoxing by himself but had withdrawal symptoms of vomiting, a feeling of something crawling over his body symptoms, and shortness of breath. [facility] Medical History Acute opioid withdrawal Asthma Cannabis abuse Polysubstance (including opioids) dependence with physiol dependence Tobacco abuse Home Medications trazodone 100 mg tablet 100 mg PO QHS PRN PRN sleep] 09/14/22 [History Last Taken Unknown] Allergy/AdvReac Type Severity Reaction Status Date / Time amoxicillin trihydrate Allergy Rash Verified 09/14/22 21:41 [From Augmentin] potassium clavulanate Allergy Rash Verified 09/14/22 21:41 [From Augmentin] Family History Brother Hemophilia Father Diabetes Surgical History History of tonsillectomy Social History Smoking Status: Current every day smoker tobacco type: cigarettes alcohol intake: current alcohol intake frequency: holidays/special occasions only substance use type: marijuana, heroin, opiates and other details: Fentanyl ROS ROS Narrative Pertinent positives and pertinent negatives as noted in HPI. All other systems were reviewed and are negative Vital Signs Vital Signs Vital Signs: 09/14/22 21:41 Temperature 98.6 F Temperature Source Temporal Pulse Rate 117 H Respiratory Rate 16 Blood Pressure 104/89 H Blood Pressure Mean 94 Pulse Ox 98 Weight Weight: 75.705 kg Body Mass Index (BMI) 21.4 Physical Exam Narrative Physical exam: General: Well-nourished, well-developed. Head: Normocephalic, atraumatic, no tenderness Eyes: Vision is grossly intact. EOMI ENT, no trauma, moist mucous membranes, no rhinorrhea Neck: Nontender, No thyromegaly. CVS: Regular rate and rhythm. S1-S2 present. No murmur, gallop or rub. Respiratory : clear to auscultation bilaterally, chest wall nontender Abdomen: Soft, nontender, nondistended, normal bowel sounds, no masses : Deferred Back: Nontender, no CVA tenderness, no midline spinal tenderness, deformities, step-offs Extremities: Nontender full range of motion, no trauma Skin: Normal color, no trauma, abrasions Neuro: Alert, oriented, cranial nerves II through XII grossly intact. Psychiatry: Normal mood. Normal affect. Not depressed. Not anxious. Results Lab / Micro Data Result Diagrams: 09/14/22 22:15 09/14/22 22:15 Labs: Laboratory Results - last 24 hr 09/14/22 22:15: WBC 12.6 H, RBC 6.23 H, Hgb 17.3 H, Hct 48.6, MCV 78.0 L, MCH 27.8, MCHC 35.6, RDW Std Deviation 33.5 L, RDW Coeff of Cecilio 11.9, Plt Count 345, MPV 9.5, Immature Gran % (Auto) 0.400, Neut % (Auto) 77.1 H, Lymph % (Auto) 14.1 L, [place] % (Auto) 8.1, Eos % (Auto) 0.1, Baso % (Auto) 0.2, Absolute Neuts (auto) 9.7 H, Absolute Lymphs (auto) 1.77, Nucleated RBC % 0 09/14/22 22:15: Sodium 129 L, Potassium 3.3 L, Chloride 92 L, Carbon Dioxide 26.0, Anion Gap 11, BUN 22 H, Creatinine 1.14, Estim Creat Clear Calc 105.15, Est GFR (MDRD) Af Amer 99, Est GFR (MDRD) Non-Af 82, BUN/Creatinine Ratio 19.3, Glucose 115 H, Calcium 9.9, Total Bilirubin 1.10 H, AST 26, ALT 29, Alkaline Phosphatase 121 H, Total Protein 8.9 H, Albumin 4.7, Globulin 4.2, Albumi n/Globulin Ratio 1.1 09/14/22 22:15: Ethyl Alcohol < 3.0 09/14/22 23:06: Ur Drug Screen Comment Assessment & Plan Assessment/Plan (1) Opiate addiction: (2) Desire for detoxification: (3) Tobacco abuse: PLAN: Plan Opioid dependence and withdrawal Patient be started on Subutex and other adjunctive medications: Gabapentin as needed; dicyclomine as needed; Vistaril as needed; methocarbamol as needed; clonidine as needed; Imodium as needed; trazodone as needed and Zofran as needed. Monitor COWS and CINA score Tobacco abuse Counseled Nicotine patch ordered DVT prophylaxis Low risk Encourage to ambulate Charges/Coding Visit Charges Inpatient E&M: 38937 Init Hosp L2
[2022-09-14 23:53] VITALS: BP 138/91; PULSE 94; RESP 16; TEMP 36.9; O2SAT 98
[2022-09-15 00:03] VITALS: BMI 21.5
[2022-09-15 00:04] LABS: Amphetamine Urine VISTA POSITIVE (<1000 ng/mL); Barbiturate Urine VISTA NEGATIVE (< 200 ng/mL); Benzodiazepine Urine VISTA NEGATIVE (< 200 ng/mL); Cocaine Urine VISTA NEGATIVE (< 300 ng/mL); Ecstacy Urine VISTA POSITIVE (< 500 ng/mL); Methadone Urine VISTA NEGATIVE (< 300 ng/mL); PCP Urine VISTA NEGATIVE (< 25 ng/mL); THC Urine VISTA POSITIVE (< 50 ng/mL); Vista UDS pH Range 5
[2022-09-15 01:18] VITALS: BP 135/67; PULSE 101; RESP 18; TEMP 37.2; O2SAT 99
[2022-09-15] MEDS: traZODone 100 MG Tablet PO ×2 (01:35→20:46)
[2022-09-15] MEDS: Buprenorphine HCl 2 MG TAB.SUBL SL ×3 (01:55→17:53)
[2022-09-15] MEDS: Dicyclomine 10 MG Capsule 20 MG PO ×3 (03:48→20:46)
[2022-09-15] MEDS: Gabapentin 300 MG Capsule PO (03:49)
[2022-09-15] MEDS: cloNIDine HCl 0.1 MG Tablet PO (03:49)
[2022-09-15] MEDS: Methocarbamol 750 MG Tablet 1500 MG PO ×3 (03:49→20:47)
[2022-09-15] MEDS: Ondansetron 8 MG Tablet PO ×2 (03:49→20:46)
[2022-09-15 05:47] VITALS: BP 147/88; PULSE 79; RESP 16; TEMP 37.5; O2SAT 97
[2022-09-15] MEDS: Acetaminophen 325 MG Tablet 650 MG PO ×3 (05:52→20:47)
[2022-09-15] MEDS: hydrOXYzine PAM 25 MG Capsule 50 MG PO ×2 (05:52→20:46)
[2022-09-15 07:50] VITALS: O2SAT 98
[2022-09-15 10:02] VITALS: BP 137/91; PULSE 77; RESP 16; TEMP 36.7; O2SAT 97
[2022-09-15 15:08] VITALS: BP 148/80; PULSE 73; RESP 18; TEMP 36.9; O2SAT 97
--- NOTE | 2022-09-15 16:58 | PCM.PN.HOSP ---
Reason for Visit Reason for Visit: Diagnoses Opioid dependence, uncomplicated (09/15/22) Tobacco use (09/15/22) Subjective Subjective Patient was seen and examined today, he states he does not feel well but is nonspecific about any symptoms. Patient's vital signs remained stable at this time Objective Data Objective Data Vital Signs: Vital Signs Temp Pulse Resp BP Pulse Ox O2 Del Method 98.4 F 73 18 148/80 H 97 Room Air 09/15/22 15:08 09/15/22 15:08 09/15/22 15:08 09/15/22 15:08 09/15/22 15:08 09/15/22 15:08 Oxygen Delivery Method Room Air Weight: 76.204 kg Body Mass Index (BMI) 21.5 Intake & Output: Intake and Output for Last 24 Hours 09/13/22 09/14/22 09/15/22 23:59 23:59 23:59 Intake Total 1000 / 1000 300 / 300 Balance 1000 / 1000 300 / 300 Lab / Micro Data Result Diagrams: 09/14/22 22:15 09/14/22 22:15 Labs: Laboratory Results - last 24 hr 09/14/22 22:15: WBC 12.6 H, RBC 6.23 H, Hgb 17.3 H, Hct 48.6, MCV 78.0 L, MCH 27.8, MCHC 35.6, RDW Std Deviation 33.5 L, RDW Coeff of Cecilio 11.9, Plt Count 345, MPV 9.5, Immature Gran % (Auto) 0.400, Neut % (Auto) 77.1 H, Lymph % (Auto) 14.1 L, [place] % (Auto) 8.1, Eos % (Auto) 0.1, Baso % (Auto) 0.2, Absolute Neuts (auto) 9.7 H, Absolute Lymphs (auto) 1.77, Nucleated RBC % 0 09/14/22 22:15: Sodium 129 L, Potassium 3.3 L, Chloride 92 L, Carbon Dioxide 26.0, Anion Gap 11, BUN 22 H, Creatinine 1.14, Estim Creat Clear Calc 105.15, Est GFR (MDRD) Af Amer 99, Est GFR (MDRD) Non-Af 82, BUN/Creatinine Ratio 19.3, Glucose 115 H, Calcium 9.9, Total Bilirubin 1.10 H, AST 26, ALT 29, Alkaline Phosphatase 121 H, Total Protein 8.9 H, Albumin 4.7, Globulin 4.2, Albumin/Globulin Ratio 1.1 09/14/22 22:15: Ethyl Alcohol < 3.0 09/14/22 23:06: Urine Opiates Screen POSITIVE H, Urine Methadone Screen NEGATIVE, Ur Barbiturates Screen NEGATIVE, Ur Phencyclidine Scrn NEGATIVE, Ur Amphetamines Screen POSITIVE H, MDMA (Ecstasy) Screen POSITIVE H, U Benzodiazepines Scrn NEGATIVE, Urine Cocaine Screen NEGATIVE, U Cannabinoids Screen POSITIVE H, Ur Drug Screen Comment Physical Exam Const alert, oriented x3, no apparent distress and average body habitus General Appearance: cooperative, well kempt and well developed Orientation / Consciousness: awake, oriented to person, oriented to place and oriented to time HEENT normocephalic, head/scalp atraumatic and moist oral mucous membranes Eyes PERRL, EOMs intact bilaterally and conjunctivae normal Neck supple, no JVD, thyroid normal and no carotid bruits General: trachea midline Resp normal respiratory effort, no retractions, no use of accessory muscles and clear to auscultation bilaterally Auscultation: Negative for rales, rhonchi or wheezes Cardio regular rate, regular rhythm, S1 normal heart sound, S2 normal heart sound, no murmurs, no rub and no gallops GI normal to inspection, nondistended, normoactive bowel sounds, soft to palpation, non-tender and non-distended Extremity no clubbing, cyanosis or edema Skin no rashes or lesions noted General Skin Exam: no breakdown Neuro oriented x3, CN's II-XII intact bilaterally, moves all extremities, no focal motor deficits and no sensory deficits noted Sensorium / Orientation: awake and alert Speech: speech normal Psych affect normal Assessment & Plan Assessment/Plan (1) Opiate addiction: PLAN: Plan 1. Acute opiate withdrawal-continue present medications, patient will be seen by addiction sr. social media & mobile manager, he states he wants to do an outpatient treatment program when discharged from the hospital. #2 dehydration-I do not feel the patient needs IV fluids at this time #3 hypokalemia-patient will be given oral potassium #4 chronic opioid addiction-patient will be seen by addiction sr. social media & mobile manager tomorrow #5 polysubstance abuse-complicates care, medical course, recovery, and prognosis Total clinical time spent by myself addressing the patient's medical issues, reviewing all of his data, and collaborating with his care team: 25 minutes Charges/Coding Visit Charges Inpatient E&M: 22465 Subs Hosp L1
[2022-09-15 20:54] VITALS: BP 133/83; PULSE 77; RESP 16; TEMP 37.4; O2SAT 97
[2022-09-16] MEDS: Buprenorphine HCl 2 MG TAB.SUBL SL ×3 (01:29→17:35)
[2022-09-16 01:34] VITALS: BP 135/90; PULSE 69; RESP 16; TEMP 36.4; O2SAT 98
[2022-09-16] MEDS: Methocarbamol 750 MG Tablet 1500 MG PO ×3 (03:22→15:54)
[2022-09-16] MEDS: Dicyclomine 10 MG Capsule 20 MG PO ×3 (03:22→15:54)
[2022-09-16] MEDS: Acetaminophen 325 MG Tablet 650 MG PO ×2 (03:22→21:01)
[2022-09-16 06:17] LABS: Anion Gap 7 (5-15); BUN 19 mg/dL (7-18); BUN/Creat Ratio 17.4 RATIO (10-20); Calcium,Total 8.8 mg/dL (8.5-10.1); Chloride 100 mmol/L (98-107); Creatinine, Serum 1.09 mg/dL (0.70-1.30); EST Glomerular Filtration Rate 86 mL/min (>60); Est Glom Filt Rate - Afr Amer 104 mL/min (>60); Estimated Creatinine Clearance 110.69 ml/min; Glucose 115 mg/dL (74-106); Potassium 3.2 mmol/L (3.5-5.1); Sodium Level 132 mmol/L (136-145)
[2022-09-16 07:57] VITALS: BP 130/79; PULSE 77; RESP 16; TEMP 36.7; O2SAT 98
[2022-09-16] MEDS: Ondansetron 8 MG Tablet PO ×2 (08:03→15:55)
[2022-09-16] MEDS: Gabapentin 300 MG Capsule PO ×2 (08:03→15:55)
[2022-09-16] MEDS: Potassium Chloride Oral Tablet 20 MEQ 40 MEQ PO (08:03)
[2022-09-16] MEDS: cloNIDine HCl 0.1 MG Tablet PO ×2 (08:03→15:54)
--- NOTE | 2022-09-16 11:54 | ADDICTION ---
This copy writer met with PT to conduct ASAM, MSE, AUDIT, DUDIT assessments and to plan for d/c. PT A+Ox4 and participated actively. All assessments completed and placed in PT's chart. PT plans to f/u with follow-up treatment services, however hes unsure of what or where he wants to follow up with. This worker offered resources. We will discuss his options tomorrow. PT did not indicate a need for transportation post d/c from [facility].
[2022-09-16 13:30] VITALS: O2SAT 97
[2022-09-16] MEDS: hydrOXYzine PAM 25 MG Capsule 50 MG PO ×2 (13:32→21:01)
[2022-09-16 13:36] VITALS: BP 141/83; PULSE 111; RESP 18; TEMP 36.7; O2SAT 97
--- NOTE | 2022-09-16 15:19 | CHAPLAIN ---
Type of Pastoral Visit _x__ Initial Visit ___ Follow-up Visit ___ On-call Visit ___ General Patient Visit ___ Spiritual Assessment ___ Family Conference ___ Bereavement ___ Rapid Response ___ Code Blue ___ Other (describe below) Pastoral Care Referral From _x__ Patient ___ Family ___ Nurse ___ Physician ___ Bell Staff ___ Nipping Machine Operator ___ Other (describe below) Sacrament/Intervention _x__ Active listening ___ Anointing ___ Sikh ___ Bereavement ___ Communion _x__ Maryam exploration ___ _x__ Life review _x__ Prayer ___ Reconciliation ___ Sacrament of Sick _x__ Supportive presence ___ Wedding ___ Other (describe below) Pastoral Comments first words patient says when this hot wound spring production supervisor entered the room do you remember me?; pt was admitted earlier this year for detox as well; pt repeats how much he is driven to the high I get from the drug, but I don't want to do drugs, I want a different life, but I don't know how; pt states that older brother was an addict but now is clean, has a family, and a house which is what I want too; asked how brother was successful at recovery the pt states, God; pt states that he has been in 30 day rehabs before but it's no good because everybody there just wants to get high again and most of those in my past rehabs are now; patient conversation is directed to spiritual help and what God says about patient and everyone; pt asks for a Bible and one is later taken to him; pt asks for prayer and pt also prays out loud for himself; pt is welcoming of future visits and support of this hot wound spring production supervisor
--- NOTE | 2022-09-16 19:01 | PN.HOSP_ITS ---
Reason for Visit Reason for Visit: Diagnoses Opioid dependence, uncomplicated (09/15/22) Tobacco use (09/15/22) Subjective Subjective Patient was seen and examined today, he states he feels better, he met with addiction psychotherapist social worker today and will follow-up as an outpatient with an outpatient detox center Objective Data Objective Data Vital Signs: Vital Signs Temp Pulse Resp BP Pulse Ox O2 Del Method 98.0 F 111 H 18 141/83 H 97 Room Air 09/16/22 13:36 09/16/22 13:36 09/16/22 13:36 09/16/22 13:36 09/16/22 13:36 09/16/22 13:36 Oxygen Delivery Method Room Air Weight: 76.204 kg Body Mass Index (BMI) 21.5 Intake & Output: Intake and Output for Last 24 Hours 09/14/22 09/15/22 09/16/22 23:59 23:59 23:59 Intake Total 1000 / 1000 300 / 300 Balance 1000 / 1000 300 / 300 Lab / Micro Data Result Diagrams: 09/14/22 22:15 09/16/22 05:25 Labs: Laboratory Results - last 24 hr 09/16/22 05:25: Sodium 132 L, Potassium 3.2 L, Chloride 100, Carbon Dioxide 25.0, Anion Gap 7, BUN 19 H, Creatinine 1.09, Estim Creat Clear Calc 110.69, Est GFR (MDRD) Af Amer 104, Est GFR (MDRD) Non-Af 86, BUN/Creatinine Ratio 17.4, Glucose 115 H, Calcium 8.8 Physical Exam Const alert, oriented x3, no apparent distress and healthy appearing General Appearance: cooperative, well kempt and well developed Orientation / Consciousness: awake, oriented to person, oriented to place and oriented to time HEENT normocephalic and moist oral mucous membranes Eyes PERRL, EOMs intact bilaterally and conjunctivae normal Neck supple, no JVD, thyroid normal and no carotid bruits General: trachea midline Resp normal respiratory effort and clear to auscultation bilaterally Auscultation: Negative for rales, rhonchi or wheezes Cardio regular rate, regular rhythm, no murmurs, no rub and no gallops GI normal to inspection, nondistended, normoactive bowel sounds, soft to palpation, non-tender and non-distended Extremity no clubbing, cyanosis or edema Skin no rashes or lesions noted General Skin Exam: no breakdown Neuro oriented x3, CN's II-XII intact bilaterally, no focal motor deficits and no sensory deficits noted Sensorium / Orientation: awake and alert Speech: speech normal Psych affect normal Assessment & Plan Assessment/Plan (1) Opiate addiction: PLAN: Plan 1. Acute opiate withdrawal-continue present medications, patient will be seen by addiction psychotherapist social worker, he states he wants to do an outpatient treatment program when discharged from the hospital. #2 dehydration-I do not feel the patient needs IV fluids at this time, BUN today was 19 #3 hypokalemia-patient will be given oral potassium, potassium was 3.2 today #4 chronic opioid addiction-patient will be seen by addiction psychotherapist social worker tomorrow #5 polysubstance abuse-complicates care, medical course, recovery, and prognosis Total clinical time spent by myself addressing the patient's medical issues, reviewing all of his data, and collaborating with his care team: 25 minutes Charges/Coding Visit Charges Inpatient E&M: 80007 Subs Hosp L2
[2022-09-16 20:51] VITALS: BP 133/81; PULSE 87; RESP 16; TEMP 37.2; O2SAT 97
[2022-09-16] MEDS: traZODone 100 MG Tablet PO (21:01)
[2022-09-17 01:52] VITALS: BP 137/81; PULSE 70; RESP 16; TEMP 36.9; O2SAT 99
[2022-09-17] MEDS: Buprenorphine HCl 2 MG TAB.SUBL SL ×2 (01:55→11:35)
[2022-09-17 08:00] VITALS: BP 135/82; PULSE 77; RESP 16; TEMP 37.7; O2SAT 95
--- NOTE | 2022-09-17 10:42 | DCINST_ITS ---
Discharge Instructions Diet Discharge Diet: No restrictions Activity Discharge Activity: Return to Normal Activity Weight Bearing Status: Full weight bearing Follow Up Care Test Results: Test results from this visit will be discussed in further detail at your follow- up appointment, if applicable. Discharge Plan Admission Admit Date/Time: 09/15/22 00:04 Primary Reason for Your Visit: Opiate detox Attending Provider: Arnol Somers Primary Care Provider: Stacy Gomez Consulting Providers: Xander Olivera Instructions Additional Instructions / Restrictions: Follow-up with [facility] today Discharge Orders/Prescriptions Prescriptions: Continued trazodone 100 mg tablet 100 mg PO QHS PRN PRN (Reason: sleep]) Label Comments: TAKE 1 TABLET BY MOUTH ONCE DAILY AT BEDTIME Referrals / Follow Up: Stacy Gomez, PA [Primary Care Provider] - Disposition Disposition (needs filled in before D/C Order can be placed): Home, Self Care
--- NOTE | 2022-09-17 11:07 | PHA.DC.MR ---
Pharmacy Service has performed discharge medication reconciliation for this patient. The patient's discharge medication list was reviewed for discrepancies and discrepancies were resolved. Home Medications trazodone 100 mg tablet 100 mg PO QHS PRN PRN sleep] 09/14/22
--- NOTE | 2022-09-17 12:51 | CHAPLAIN ---
Type of Pastoral Visit ___ Initial Visit _x__ Follow-up Visit ___ On-call Visit ___ General Patient Visit ___ Spiritual Assessment ___ Family Conference ___ Bereavement ___ Rapid Response ___ Code Blue ___ Other (describe below) Pastoral Care Referral From _x__ Patient ___ Family ___ Nurse ___ Physician ___ Manager Material ___ Principal Architectural Firm ___ Other (describe below) Sacrament/Intervention _x__ Active listening ___ Anointing ___ Hinduism ___ Bereavement ___ Communion ___ Maryam exploration ___ ___ Life review _x__ Prayer ___ Reconciliation ___ Sacrament of Sick ___ Supportive presence ___ Wedding ___ Other (describe below) Pastoral Comments patient welcomed follow up before being discharged today; pt admits to anxious feelings about leaving and going home; pt discussed plan for his recovery that includes changing phone number, making appointments at [facility], and returning home to supportive family; pt welcomes prayer support and stated that he was able to read some Bible verses last night that was helpful; pt given affirmation on desire and plan for recovery
[2022-09-17 13:45] VITALS: BP 132/76; PULSE 79; RESP 18; TEMP 37.6; O2SAT 97
--- NOTE | 2022-09-18 19:07 | PCM.DC.SUM ---
Providers Date of Admission: 09/15/22 Date of Discharge: 09/17/22 Primary Care Physician: EVELYN Phan Reason For Visit: OPIATE DETOX Diagnosis Discharge Diagnosis (1) Opiate addiction: Status: Acute Code(s): F11.20 - Opioid dependence, uncomplicated Plan 1. Acute opiate withdrawal-continue present medications, patient will be seen by addiction psychiatric social worker supervisor, he states he wants to do an outpatient treatment program when discharged from the hospital. #2 dehydration-I do not feel the patient needs IV fluids at this time, BUN today was 19 #3 hypokalemia-patient will be given oral potassium, potassium was 3.2 today #4 chronic opioid addiction-patient will be seen by addiction psychiatric social worker supervisor tomorrow #5 polysubstance abuse-complicates care, medical course, recovery, and prognosis Total clinical time spent by myself addressing the patient's medical issues, reviewing all of his data, and collaborating with his care team: 25 minutes Medications at Discharge Home Medications trazodone 100 mg tablet 100 mg PO QHS PRN PRN sleep] 09/14/22 Hospital Course Operations None Procedures None Summary of Care Provided Minutes Spent on Discharge: 31 Hospital Course: This 26-year-old white male was seen in the emergency room at [facility] requesting services for opiate detox due to chronic opioid addiction. Patient was admitted to [place] [address], orders were entered using the opiate detox order set, patient was monitored and he was seen by addiction psychiatric social worker supervisor. Patient stated that he wanted to do an outpatient detox program rather than an inpatient detox program at discharge from the hospital. Patient had no untoward events during his hospitalization he had minimal withdrawal symptoms. Patient was given supplemental potassium due to low potassium, he appeared to be slightly dehydrated at the time of admission but was able to take oral fluids. Patient's tox screen on admission was positive for opiates, amphetamines, MDMA, and cannabinoids. On 09/17/2022, patient was seen and examined: On examination he appeared in good health and spirits. Vital signs as documented. Skin warm and dry and without overt rashes. Neck without JVD, neck was supple, trachea midline, thyroid was normal. Lungs clear bilaterally, normal air movement was noted. Heart exam notable for regular rhythm, normal sounds and absence of murmurs, rubs or gallops. Abdomen unremarkable and without evidence of organomegaly, masses, or abdominal aortic enlargement. Bowel sounds are present, abdomen is not distended. Extremities nonedematous, no cyanosis was noted, no clubbing was noted. Neuro: Cranial nerves II through XII are grossly intact, no focal motor deficits were noted, sensation to light touch and pinprick intact, motor exam 5/5 throughout. Psych: Patient is alert and oriented x3, he does not appear anxious or depressed, he does not appear agitated. Patient was seen and examined on 09/17/2022 and appear to be stable for discharge home. Weight / BMI Weight Weight: 76.204 kg Body Mass Index (BMI) 21.5 ABG / Lab / Microbiology Data 09/14/22 22:15 09/16/22 05:25 D/C Instructions Discharge Diet: No restrictions Weight Bearing Status: Full weight bearing Meaningful Use Info Meaningful Use Diagnoses (Choose all that apply): None applicable Discharge Plan Admission Admit Date/Time: 09/15/22 00:04 Primary Reason for Your Visit: Opiate detox Attending Provider: Arnol Somers Primary Care Provider: Stacy Gomez Consulting Providers: Xander Olivera Instructions Additional Instructions / Restrictions: Follow-up with [facility] today Discharge Orders/Prescriptions Prescriptions: Continued trazodone 100 mg tablet 100 mg PO QHS PRN PRN (Reason: sleep]) Patient Comments: TAKE 1 TABLET BY MOUTH ONCE DAILY AT BEDTIME Referrals / Follow Up: Stacy Gomez PA [Primary Care Provider] - Disposition Disposition (needs filled in before D/C Order can be placed): Home, Self Care Charges/Coding Visit Charges Inpatient E&M: 51025 Disch Hosp >30min
== END 2022-09-17 13:45 | disposition home or self-care (01) | DRG 773 ==
LOC: ED 22:12 → MS3 09-15 00:44
PROVIDERS: Admitting Provider Hospitalist; Emergency Provider Emergency Medicine; PCP Physician Assistant; Referring Provider Hospitalist; Visit Provider Internal Medicine
DX: F11.23 Opioid dependence with withdrawal (principal); E86.0 Dehydration; E87.6 Hypokalemia; F12.90 Cannabis use, unspecified, uncomplicated; F17.210 Nicotine dependence, cigarettes, uncomplicated
CPT/HCPCS: 36415; 80048; 80053; 80307; 82077; 85025; 97803; 99283; J7030; A4216

== ENCOUNTER 2022-12-27 16:02 | Inpatient (IN) | payer MEDICAID, SELFPAY ==
[2022-12-27 16:08] VITALS: BP 127/85; PULSE 92; RESP 22; TEMP 36.1; O2SAT 99; BMI 21.9
[2022-12-27 16:14] VITALS: O2SAT 99
--- NOTE | 2022-12-27 16:15 | RAD_ITS ---
EXAM: XR CHEST, 1 VIEW CLINICAL INDICATION: dyspnea TECHNIQUE: Frontal view of the chest. COMPARISON: XR Chest dated 05/01/2022 FINDINGS: LUNGS AND PLEURAL SPACES: No consolidation or edema. No pneumothorax. No effusion. HEART: Normal heart size. MEDIASTINUM: No mediastinal or hilar mass. BONES/JOINTS: No acute abnormality. RAD/Chest 1 View (Portable) IMPRESSION: No acute cardiopulmonary abnormality. No interval change. Electronically Signed: Edouard Velazquez MD at 16:51 EDT ,
--- NOTE | 2022-12-27 16:20 | EX.ED.DYSGE1 ---
HPI <Dr. Cecilio Acosta DO - Last Filed: 12/27/22 16:27> History of Present Illness Chief Complaint: Fall Informant: patient Narrative Narrative: 27-year-old male brought in to the emergency department via EMS with a chief complaint of fall. Patient states that he fell down a flight of stairs. He is unsure of how many. He is unsure of why he fell. He he is not sure if he remembers falling. He does note that he is a every other day user of intranasal fentanyl. He states that he takes a day off in between for monetary reasons. He notes a generalized headache. He notes pain in the occiput of his scalp. He notes a soreness to his nose. He denies any neck pain or dental injury. He states he feels like he cannot take a deep breath on the right side. He is not having any problems moving his arm or legs. He states that he did not use any illegal drugs today. EMS however did administer Narcan. The patient states that he is having a desire for detoxification from opiates PFS <Dr. Cecilio Acosta DO - Last Filed: 12/27/22 16:27> [facility] Medical History Acute opioid withdrawal Asthma Cannabis abuse Desire for detoxification Polysubstance (including opioids) dependence with physiol dependence Tobacco abuse Tobacco abuse Home Medications NK 12/27/22 [History Last Taken Unknown] Allergy/AdvReac Type Severity Reaction Status Date / Time amoxicillin trihydrate Allergy Rash Verified 12/27/22 16:13 [From Augmentin] potassium clavulanate Allergy Rash Verified 12/27/22 16:13 [From Augmentin] Family History Brother Hemophilia Father Diabetes Surgical History History of tonsillectomy Social History Smoking Status: Current every day smoker tobacco type: cigarettes alcohol intake: current alcohol intake frequency: holidays/special occasions only substance use type: marijuana, heroin, opiates and other details: Fentanyl ROS <Dr. Cecilio Acosta DO - Last Filed: 12/27/22 16:27> ROS ED Constitutional Constitutional ED: Denies chills, fever(s) or weight loss Eyes Eyes: Denies change in vision or diplopia ENT ENT ED: Reports rhinorrhea; Denies ear pain or sore throat Cardiovascular Cardiovascular: Reports chest pain; Denies orthopnea, palpitations or racing heartbeat Respiratory/Chest Respiratory/Chest: Reports dyspnea; Denies cough or orthopnea Gastrointestinal Gastrointestinal: Denies abdominal pain, diarrhea, nausea or vomiting Genitourinary Genitourinary ED: Denies dysuria, hematuria or urinary frequency Musculoskeletal Musculoskeletal: Denies arthralgias, back pain, myalgias or neck pain Integumentary Denies abscess or rash Neurologic Neurologic: Reports headache(s); Denies weakness Psychiatric Psychiatric: Denies anxiety, depression, suicidal ideation or suicidal thoughts Endocrine Endocrinology: Denies polydipsia, polyphagia or polyuria Allergic/Immunologic Allergic/Immunologic ED: Denies mouth swelling, tongue swelling or urticaria EXAM <Dr. Cecilio Acosta, DO - Last Filed: 12/27/22 16:27> Physical Exam Const Vital Signs: 12/27/22 16:08 12/27/22 16:14 Temperature 97 F L Temperature Source Temporal Pulse Rate 92 Respiratory Rate 22 H Respiratory Effort Short of Breath Blood Pressure 127/85 H Blood Pressure Mean 99 Pulse Ox 99 99 Oxygen Delivery Method Room Air Room Air Positive well nourished and well developed General Appearance ED: well developed HEENT Reports normocephalic, head/scalp atraumatic and moist mucous membranes HEENT Narrative: Reported tenderness to palpation in the occiput of the scalp Patient has clear rhinorrhea There is a superficial abrasion to the left proximal aspect of the bridge of the nose. There is a superficial abrasion to the right cheek. There is no malocclusion. No temporal or zygomatic arch tenderness Eyes PERRL and EOMs intact bilaterally Neck no lymphadenopathy, supple and no JVD Chest Wall Chest Narrative: Tender to palpation of the anterior aspect of the right chest wall without crepitance. Resp normal respiratory effort and clear to auscultation bilaterally Cardio regular rate, regular rhythm and no murmurs GI normal to inspection, nondistended, normoactive bowel sounds and non-tender Palpation: soft Back/Spine no CVA tenderness and normal ROM Extremity normal to inspection General Extremety ED: Negative for edema General Extremity: Negative for edema Neuro oriented x3 and CN's II-XII intact bilaterally Neuro Narrative: At times the patient appears at times lethargic but is able to sit himself up in the bed to blow his nose and talk very clearly Motor Exam: strength 5/5 throughout Psych mental status grossly normal Mood & Affect: Negative for depressed or tearful Skin no rashes or lesions noted and no wounds <Dr. Akash Saucedo, DO - Last Filed: 12/27/22 18:24> Physical Exam Const Vital Signs: 12/27/22 16:08 12/27/22 16:14 Temperature 97 F L Temperature Source Temporal Pulse Rate 92 Respiratory Rate 22 H Respiratory Effort Short of Breath Blood Pressure 127/85 H Blood Pressure Mean 99 Pulse Ox 99 99 Oxygen Delivery Method Room Air Room Air MDM <Dr. Cecilio Acosta, DO - Last Filed: 12/27/22 16:27> MDM MDM Narrative Medical decision making narrative: My interpretation of the portable chest x-ray is no acute process. Specifically I do not see any obvious rib fracture or pneumothorax. CT of the cervical spine and brain was obtained. ED addiction labs were obtained. If at the end of his work-up he is not requiring transfer or admission for traumatic injuries, and he still desires, I will speak with the hospitalist regarding admission for opiate detoxification Lab Data Labs: Laboratory Results - last 24 hr 12/27/22 12/27/22 16:30 17:00 WBC 17.0 H RBC 5.68 Hgb 15.8 Hct 47.4 MCV 83.5 MCH 27.8 MCHC 33.3 RDW Std Deviation 38.3 RDW Coeff of Cecilio 12.6 Plt Count 362 MPV 9.3 Immature Gran % (Auto) 0.500 Neut % (Auto) 87.7 H Lymph % (Auto) 6.5 L [place] % (Auto) 4.7 Eos % (Auto) 0.4 Baso % (Auto) 0.2 Absolute Neuts (auto) 14.9 H Absolute Lymphs (auto) 1.11 Nucleated RBC % 0 Sodium 137 Potassium 3.5 Chloride 110 H Carbon Dioxide 22.0 Anion Gap 5 BUN 15 Creatinine 1.00 Estim Creat Clear Calc 121.95 Est GFR (MDRD) Af Amer 115 Est GFR (MDRD) Non-Af 95 BUN/Creatinine Ratio 15.0 Glucose 113 H Calcium 9.7 Total Bilirubin 1.30 H AST 15 ALT 25 Alkaline Phosphatase 92 Total Protein 7.7 Albumin 4.1 Globulin 3.6 Albumin/Globulin Ratio 1.1 Urine Color Yellow Urine Clarity Clear Urine pH 6.5 Ur Specific [place] 1.020 Urine Protein 30 H Urine Glucose (UA) Normal Urine Ketones 5 H Urine Occult Blood Negative Urine Nitrite Negative Urine Bilirubin 1 H Urine Urobilinogen 4 H Ur Leukocyte Esterase 25 H Urine RBC 0 SEEN Urine WBC 0 SEEN Ur Squamous Epith Cells 0 SEEN Calcium Oxalate Crystal 2+ Urine Bacteria 1+ Urine Mucus 1+ Urine Opiates Screen NEGATIVE Urine Methadone Screen NEGATIVE Ur Barbiturates Screen NEGATIVE Ur Phencyclidine Scrn NEGATIVE Ur Amphetamines Screen NEGATIVE MDMA (Ecstasy) Screen POSITIVE H U Benzodiazepines Scrn NEGATIVE Urine Cocaine Screen NEGATIVE U Cannabinoids Screen POSITIVE H Ur Drug Screen Comment Ethyl Alcohol < 3.0 Radiography Diagnostic Testing: Clinical Impression(s) from Imaging Studies Chest X-Ray 12/27/22 16:15 IMPRESSION: No acute cardiopulmonary abnormality. No interval change. Electronically Signed: Edouard Velazquez MD at 16:51 EDT , Brain CT 12/27/22 16:39 IMPRESSION: No acute intracranial abnormality. Electronically Signed: Los Casiano MD at 17:41 EDT , Cervical Spine CT 12/27/22 16:39 IMPRESSION: No evidence of acute cervical spinal fracture or spondylolisthesis. Electronically Signed: Los Casiano MD at 17:41 EDT , <Dr. Akash Saucedo, DO - Last Filed: 12/27/22 18:24> MDM MDM Narrative Medical decision making narrative: My interpretation of the portable chest x-ray is no acute process. Specifically I do not see any obvious rib fracture or pneumothorax. CT of the cervical spine and brain was obtained. ED addiction labs were obtained. If at the end of his work-up he is not requiring transfer or admission for traumatic injuries, and he still desires, I will speak with the hospitalist regarding admission for opiate detoxification Dr. Saucedo dictating. Patient signed out to me pending admission for opioid detox. Ultimately his work-up is fairly normal with exception of a leukocytosis. His chest x-ray shows no acute process. CT brain and cervical spine are normal. Renal function and electrolytes unremarkable. LFTs are unremarkable with exception of a total bilirubin of 1.30. EtOH negative. Drug screen positive for MDMA and cannabinoids. Patient requesting admission for detox. Discussed with hospitalist for admission. Lab Data Labs: Laboratory Results - last 24 hr 12/27/22 12/27/22 16:30 17:00 WBC 17.0 H RBC 5.68 Hgb 15.8 Hct 47.4 MCV 83.5 MCH 27.8 MCHC 33.3 RDW Std Deviation 38.3 RDW Coeff of Cecilio 12.6 Plt Count 362 MPV 9.3 Immature Gran % (Auto) 0.500 Neut % (Auto) 87.7 H Lymph % (Auto) 6.5 L [place] % (Auto) 4.7 Eos % (Auto) 0.4 Baso % (Auto) 0.2 Absolute Neuts (auto) 14.9 H Absolute Lymphs (auto) 1.11 Nucleated RBC % 0 Sodium 137 Potassium 3.5 Chloride 110 H Carbon Dioxide 22.0 Anion Gap 5 BUN 15 Creatinine 1.00 Estim Creat Clear Calc 121.95 Est GFR (MDRD) Af Amer 115 Est GFR (MDRD) Non-Af 95 BUN/Creatinine Ratio 15.0 Glucose 113 H Calcium 9.7 Total Bilirubin 1.30 H AST 15 ALT 25 Alkaline Phosphatase 92 Total Protein 7.7 Albumin 4.1 Globulin 3.6 Albumin/Globulin Ratio 1.1 Urine Color Yellow Urine Clarity Clear Urine pH 6.5 Ur Specific [place] 1.020 Urine Protein 30 H Urine Glucose (UA) Normal Urine Ketones 5 H Urine Occult Blood Negative Urine Nitrite Negative Urine Bilirubin 1 H Urine Urobilinogen 4 H Ur Leukocyte Esterase 25 H Urine RBC 0 SEEN Urine WBC 0 SEEN Ur Squamous Epith Cells 0 SEEN Calcium Oxalate Crystal 2+ Urine Bacteria 1+ Urine Mucus 1+ Urine Opiates Screen NEGATIVE Urine Methadone Screen NEGATIVE Ur Barbiturates Screen NEGATIVE Ur Phencyclidine Scrn NEGATIVE Ur Amphetamines Screen NEGATIVE MDMA (Ecstasy) Screen POSITIVE H U Benzodiazepines Scrn NEGATIVE Urine Cocaine Screen NEGATIVE U Cannabinoids Screen POSITIVE H Ur Drug Screen Comment Ethyl Alcohol < 3.0 Radiography Diagnostic Testing: Clinical Impression(s) from Imaging Studies Chest X-Ray 12/27/22 16:15 IMPRESSION: No acute cardiopulmonary abnormality. No interval change. Electronically Signed: Edouard Velazquez MD at 16:51 EDT , Brain CT 12/27/22 16:39 IMPRESSION: No acute intracranial abnormality. Electronically Signed: Los Casiano MD at 17:41 EDT , Cervical Spine CT 12/27/22 16:39 IMPRESSION: No evidence of acute cervical spinal fracture or spondylolisthesis. Electronically Signed: Los Casiano MD at 17:41 EDT , Discharge Plan Dx/Rx/DC Orders Clinical Impression: Abrasion of nose, Opiate addiction, Chest wall contusion, Head injury, Abrasion of face Disposition Disposition: Acute Care [facility]
--- NOTE | 2022-12-27 16:39 | CT_ITS ---
INDICATION: trauma EXAMINATION: CT CERVICAL SPINE - CT Spine Cervical W/O Contrast Injection TECHNIQUE: Helically acquired images were obtained of the cervical spine. 2D reformatted images were reviewed. A radiation dose optimization technique was used for this scan. IV Contrast dosage and agent: None. COMPARISON: None. FINDINGS: VERTEBRAE: No fracture or traumatic subluxation. No discrete lytic or blastic abnormality. Normal alignment. Normal craniocervical junction and cervicothoracic junction. DISCS and SPINAL CANAL: Disc heights are preserved. No critical stenosis. NECK SOFT TISSUES: No prevertebral soft tissue swelling. There is no cervical adenopathy. LUNG APICES: Clear. CT/Spine Cervical without Contras IMPRESSION: No evidence of acute cervical spinal fracture or spondylolisthesis. Electronically Signed: Los Casiano MD at 17:41 EDT ,
--- NOTE | 2022-12-27 16:39 | CT_ITS ---
EXAMINATION : Head CT w/out contrast HISTORY : trauma COMPARISON : None. TECHNIQUE : Multiple contiguous axial images were obtained from the skull base to the vertex without intravenous contrast. A radiation dose optimization technique was used for this scan. FINDINGS : The ventricles and sulci are normal in size. There is no evidence for acute intracranial hemorrhage, mass effect, or midline shift. There is no extra-axial fluid collection. There is normal marie-white differentiation, without CT evidence of acute ischemia or infarct. The skull base and calvarium are unremarkable. The orbits are unremarkable. The paranasal sinuses are clear. The mastoid air cells are well-aerated. The soft tissues are unremarkable. CT/Brain/Head without Contrast IMPRESSION: No acute intracranial abnormality. Electronically Signed: Los Casiano MD at 17:41 EDT ,
[2022-12-27 16:53] LABS: Absolute Lymphocyte Count 1.11 X10^3/uL (0.83-4.51); Absolute Neutrophil Count 14.9 X10^3/uL (2.0-7.7); Basophil# 0.03 X10^3/uL; Basophil% 0.2 % (0-1); Eosinophil# 0.07 X10^3/uL; Eosinophils% 0.4 % (0-5); Hematocrit 47.4 % (40-54); Hemoglobin 15.8 g/dL (13.0-16.5); Lymphocyte # 1.11 X10^3/ul (0.83-4.51); Lymphocyte % 6.5 % (19-41); Mean Corp Hgb Conc 33.3 g/dL (32-36); Mean Corpuscular Hgb 27.8 pg (27.0-32.0); Mean Corpuscular Volume 83.5 fL (80-94); Mean Platelet Vol. 9.3 fl (6.2-12.0); Monocyte% 4.7 % (0-10); NRBC Flagged by Analyzer 0 % (0-5); Neutrophil # 14.94 X10^3/uL (2.7-7.7); Neutrophil % 87.7 % (47-70); Platelet Count 362 K/mm3 (150-450); RBC Distribution Width CV 12.6 % (11.6-14.6); RBC Distribution Width SD 38.3 fl (35.1-43.9); Red Blood Count 5.68 M/mm3 (4.6-6.2)
--- NOTE | 2022-12-27 16:56 | EKG12_ITS ---
Test Reason : DIZZINESS Blood Pressure : / mmHG Vent. Rate : 079 BPM Atrial Rate : 079 BPM P-R Int : 170 ms QRS Dur : 098 ms QT Int : 360 ms P-R-T Axes : 052 071 041 degrees QTc Int : 412 ms Normal sinus rhythm Normal ECG Confirmed by GABBIE MONTENEGRO, AJ ([id number]), supervising editor news reel DANIEL MILLER ([id number]) on 12/31/2022 12:11:12 PM Referred By: Confirmed By:AJ CARTWRIGHT MD
[2022-12-27 17:04] LABS: ALB/GLOB Ratio 1.1 RATIO (0.9-2.4); AST(SGOT) 15 U/L (15-37); Alanine Aminotransfer ALT/SGPT 25 U/L (16-61); Albumin, Serum 4.1 g/dL (3.2-5.0); Alkaline Phosphatase 92 U/L (45-117); Anion Gap 5 (5-15); BUN 15 mg/dL (7-18); Calcium,Total 9.7 mg/dL (8.5-10.1); Chloride 110 mmol/L (98-107); EST Glomerular Filtration Rate 95 mL/min (>60); Est Glom Filt Rate - Afr Amer 115 mL/min (>60); Estimated Creatinine Clearance 121.95 ml/min; Globulin 3.6 g/dL (2.2-4.2); Glucose 113 mg/dL (74-106); Potassium 3.5 mmol/L (3.5-5.1); Protein, Total 7.7 g/dL (6.4-8.2); Sodium Level 137 mmol/L (136-145)
[2022-12-27 17:16] LABS: Red Blood Cells-Urine 0 SEEN /hpf (0-5); Squamous Epithelial Cells - UA 0 SEEN /hpf (0-5); White Blood Cells 0 SEEN /hpf (0-5)
[2022-12-27 17:20] LABS: Color, Urine Yellow (Yellow); Glucose, Dipstick Normal (Normal); Ketone-Dipstick 5 mg/dl (Negative); Leukocyte Esterase-Dipstick 25 /ul (Negative); Nitrite-Dipstick Negative (Negative); Occult Blood-Urine Negative /ul (Negative); Protein-Dipstick 30 mg/dl (Negative); Urine Clarity Clear (Clear); Urine Urobilinogen 4 mg/dl (Normal); Urine pH 6.5 (5.0 - 8.0)
[2022-12-27 17:30] LABS: Alcohol, Blood (Medical)-Serum < 3.0 mg/dL
[2022-12-27 17:30] LABS: Amphetamine Urine VISTA NEGATIVE (<1000 ng/mL); Barbiturate Urine VISTA NEGATIVE (< 200 ng/mL); Benzodiazepine Urine VISTA NEGATIVE (< 200 ng/mL); Cocaine Urine VISTA NEGATIVE (< 300 ng/mL); Ecstacy Urine VISTA POSITIVE (< 500 ng/mL); Methadone Urine VISTA NEGATIVE (< 300 ng/mL); PCP Urine VISTA NEGATIVE (< 25 ng/mL); THC Urine VISTA POSITIVE (< 50 ng/mL); Vista UDS pH Range 5
[2022-12-27 17:36] LABS: Urine Bilirubin Dipstick 1 mg/dL (Negative)
[2022-12-27 17:39] LABS: Calcium Oxalate Crystals Ur 2+ /hpf (<or=2+)
[2022-12-27 17:40] LABS: Bacteria 1+ /hpf (None Seen)
[2022-12-27 17:41] LABS: Mucous, Urine 1+ /hpf (<or=2+)
--- NOTE | 2022-12-27 17:56 | HP.PCM.HOS_ITS ---
HPI - General General Date of Admission: 12/27/22 Date of Service: 12/27/22 Chief Complaint: Opiate withdrawal HPI Narrative BRYAN LUNDBERG, is a 27 M with history of opiate use disorder and polysubstance use disorder who presented to [facility] ED on 12/27/2022 after a fall. ED work-up negative for acute imaging or lab abnormalities. Patient admitted at his request for opiate detoxification. Patient seen at bedside in [facility] ED. Laying comfortably in bed, no acute distress. Patient reports generally feeling terrible secondary both to pain in his head and face from the fall as well as from opiate detoxification. He otherwise denies any fevers or chills, chest pain, shortness of breath, abdominal pain or discomfort. No other acute concerns currently. Vitals in ED unremarkable. Labs notable for WBC count 17, Aj 15.8, platelets 362, sodium 137, potassium 3.5, chloride 110, bicarb 22, BUN 15, creatinine 1.00 , total bilirubin 1.30, LFTs otherwise normal. UA showed 30 protein, 5 ketones, otherwise benign. Urine drug screen showed positive ecstasy and cannabinoids; fentanyl notably is not detected on urine drug screen. Chest x-ray is nonacute. CT brain and C-spine was also nonacute. [facility] Medical History Acute opioid withdrawal Asthma Cannabis abuse Desire for detoxification Polysubstance (including opioids) dependence with physiol dependence Tobacco abuse Tobacco abuse Home Medications NK 12/27/22 [History Last Taken Unknown] Allergy/AdvReac Type Severity Reaction Status Date / Time amoxicillin trihydrate Allergy Rash Verified 12/27/22 16:13 [From Augmentin] potassium clavulanate Allergy Rash Verified 12/27/22 16:13 [From Augmentin] Family History Brother Hemophilia Father Diabetes Surgical History History of tonsillectomy Social History Smoking Status: Current every day smoker tobacco type: cigarettes alcohol intake: current alcohol intake frequency: holidays/special occasions only substance use type: marijuana, heroin, opiates and other details: Fentanyl ROS Constitutional Constitutional: Reports fatigue; Denies change in weight, chills, fever(s) or weakness Eyes Eyes: Denies change in vision ENT HEENT: Reports headache(s) Cardiovascular Cardiovascular: Denies chest pain, dyspnea on exertion or edema Respiratory/Chest Respiratory/Chest: Denies cough or shortness of breath at rest Gastrointestinal Gastrointestinal: Denies abdominal pain, constipation, diarrhea, nausea or vomiting Genitourinary Genitourinary: Denies dysuria Neurologic Neurologic: Denies confusion, dizziness, focal weakness, numbness or paresthes ias Vital Signs Vital Signs Vital Signs: 12/27/22 16:08 12/27/22 16:14 Temperature 97 F L Temperature Source Temporal Pulse Rate 92 Respiratory Rate 22 H Respiratory Effort Short of Breath Blood Pressure 127/85 H Blood Pressure Mean 99 Pulse Ox 99 99 Oxygen Delivery Method Room Air Room Air Weight Weight: 77.7 kg Body Mass Index (BMI) 21.9 Physical Exam Const alert and oriented x3 Constitutional Narrative: Young male, laying in bed in dark room, appears moderately fatigued, otherwise conversing normally and in no acute distress. General Appearance: cooperative and comfortable HEENT normocephalic, head/scalp atraumatic, hearing grossly normal bilaterally, nasal mucous membranes and turbinates normal and moist oral mucous membranes Eyes PERRL, EOMs intact bilaterally and conjunctivae normal Neck full ROM, no lymphadenopathy and supple Lymph Lymphatic: no lymphadenopathy noted Chest inspection of chest normal Resp normal respiratory effort, normal air movement, no use of accessory muscles and clear to auscultation bilaterally Cardio regular rate, regular rhythm, no murmurs and peripheral pulses 2+ throughout GI normal to inspection, nondistended, normoactive bowel sounds, soft to palpation, non-tender and non-distended Back/Spine normal ROM Extremity normal to inspection, full ROM and no pedal edema Skin no rashes or lesions noted Psych mental status grossly normal Results Lab / Micro Data 12/27/22 16:30 12/27/22 16:30 Labs: Laboratory Results - last 24 hr 12/27/22 16:30: WBC 17.0 H, RBC 5.68, Hgb 15.8, Hct 47.4, MCV 83.5, MCH 27.8, MCHC 33.3, RDW Std Deviation 38.3, RDW Coeff of Cecilio 12.6, Plt Count 362, MPV 9.3, Immature Gran % (Auto) 0.500, Neut % (Auto) 87.7 H, Lymph % (Auto) 6.5 L, [place] % (Auto) 4.7, Eos % (Auto) 0.4, Baso % (Auto) 0.2, Absolute Neuts (auto) 14.9 H, Absolute Lymphs (auto) 1.11, Nucleated RBC % 0, Sodium 137, Potassium 3.5, Chloride 110 H, Carbon Dioxide 22.0, Anion Gap 5, BUN 15, Creatinine 1.00, Estim Creat Clear Calc 121.95, Est GFR (MDRD) Af Amer 115, Est GFR (MDRD) Non-Af 95, BUN/Creatinine Ratio 15.0, Glucose 113 H, Calcium 9.7, Total Bilirubin 1.30 H, AST 15, ALT 25, Alkaline Phosphatase 92, Total Protein 7.7, Albumin 4.1, Globulin 3.6, Albumin/Globulin Ratio 1.1, Ethyl Alcohol < 3.0 12/27/22 17:00: Urine Color Yellow, Urine Clarity Clear, Urine pH 6.5, Ur Specific [place] 1.020, Urine Protein 30 H, Urine Glucose (UA) Normal, Urine Ketones 5 H, Urine Occult Blood Negative, Urine Nitrite Negative, Urine Bilirubin 1 H, Urine Urobilinogen 4 H, Ur Leukocyte Esterase 25 H, Urine RBC 0 SEEN, Urine WBC 0 SEEN, Ur Squamous Epith Cells 0 SEEN, Calcium Oxalate Crystal 2+, Urine Bacteria 1+, Urine Mucus 1+, Urine Opiates Screen NEGATIVE, Urine Methadone Screen NEGATIVE, Ur Barbiturates Screen NEGATIVE, Ur Phencyclidine Scrn NEGATIVE, Ur Amphetamines Screen NEGATIVE, MDMA (Ecstasy) Screen POSITIVE H , U Benzodiazepines Scrn NEGATIVE, Urine Cocaine Screen NEGATIVE, U Cannabinoids Screen POSITIVE H, Ur Drug Screen Comment Radiology Impression Chest X-Ray 12/27/22 16:15 IMPRESSION: No acute cardiopulmonary abnormality. No interval change. Electronically Signed: Edouard Velazquez MD at 16:51 EDT , Brain CT 12/27/22 16:39 IMPRESSION: No acute intracranial abnormality. Electronically Signed: Los Casiano MD at 17:41 EDT , Cervical Spine CT 12/27/22 16:39 IMPRESSION: No evidence of acute cervical spinal fracture or spondylolisthesis. Electronically Signed: Los Casiano MD at 17:41 EDT , Assessment & Plan Assessment/Plan (1) Opiate addiction: PLAN: Plan Patient is a 27-year-old male with history of opiate use disorder and polysubstance use disorder who presented to [facility] ED on 12/27/2022 after a fall. ED work-up negative for acute imaging or lab abn ormalities. Patient admitted at his request for opiate detoxification. 1. Opiate use disorder, polysubstance use disorder Every other day user of intranasal fentanyl. Has gone through hospital det oxification before, last time was here at the end of August. Tolerated detoxification well at that time with medications provided in order set. Currently having withdrawal symptoms. UDS positive for ecstasy and cannabinoids, but notably fentanyl does not register on UDS. ? Admit under inpatient status to [facility]. Opiate withdrawal order set placed. Case management consulted. 2. Fall Seems most likely mechanical fall, likely secondary to drug intoxication. Superficial abrasion to bridge of the nose and right cheek, otherwise no injuries noted. Chest x-ray nonacute. CT brain and cervical spine was negative. Labs with mild abnormalities as noted below, no significant concerns. ? No further management needed. 3. Leukocytosis ? WBC count of 17 on admit. Likely reactive, low concern for infectious etiology at this time. Follow-up a.m. CBC. 4. Elevated total bilirubin ? Mildly elevated at 1.30. LFTs otherwise normal. Acute hepatitis panel and HIV ordered. DVT prophylaxis: Ambulate CODE STATUS: Full code, verified Expected disposition: Home, 2 to 3 days Total clinical time spent by myself addressing the patient's medical issues, reviewing all the data, and collaborating with patient's care team: 55 minutes. Charges/Coding Visit Charges Inpatient E&M: 48386 Init Hosp L2
[2022-12-27 18:00] VITALS: BP 115/70; PULSE 76; RESP 18; O2SAT 98
--- NOTE | 2022-12-27 18:08 | CM.ED ---
Social Work SW met with patient and introduced self and role as [facility] SW. Patient lying on hospital bed and agreeable to speak with SW. SW engaged patient in conversation regarding [facility] detox program as well as AOD use. Patient reports fentanyl use with last day of use being yesterday. Patient states he has participated in [facility] before, recalls the rules and has no questions. Patient also reports being interested in rehab at discharge. SW updated treatment navigator Plan: TAMARA QUILES, NATHAN
[2022-12-27] MEDS: Methocarbamol 750 MG Tablet PO (19:33)
[2022-12-27] MEDS: Gabapentin 300 MG Capsule PO (19:33)
[2022-12-27] MEDS: traZODone 100 MG Tablet PO (19:33)
[2022-12-27] MEDS: Ondansetron 8 MG Tablet PO (19:33)
[2022-12-27 19:35] VITALS: BMI 21.9
[2022-12-27 19:39] VITALS: BP 115/79; PULSE 80; RESP 18; TEMP 36.3; O2SAT 98
[2022-12-27] MEDS: Buprenorphine HCl 2 MG TAB.SUBL 4 MG SL (19:59)
[2022-12-27 21:34] LABS: HIV - WCH Non-Reactive (Nonreactive)
[2022-12-27] MEDS: hydrOXYzine PAM 25 MG Capsule 50 MG PO (22:10)
[2022-12-27] MEDS: MELATONIN 3 MG TABLET PO (22:10)
[2022-12-27] MEDS: cloNIDine HCl 0.1 MG Tablet PO (22:10)
[2022-12-28] MEDS: Methocarbamol 750 MG Tablet PO ×2 (02:56→11:17)
[2022-12-28] MEDS: Buprenorphine HCl 2 MG TAB.SUBL 4 MG SL ×2 (02:56→11:15)
[2022-12-28 02:57] VITALS: BP 125/73; PULSE 80; RESP 18; TEMP 36.6; O2SAT 95
[2022-12-28 05:13] VITALS: BP 148/97; PULSE 81; RESP 18; O2SAT 97
[2022-12-28] MEDS: hydrOXYzine PAM 25 MG Capsule 50 MG PO (05:16)
[2022-12-28] MEDS: Gabapentin 300 MG Capsule PO (05:16)
[2022-12-28 06:00] LABS: Hematocrit 44.2 % (40-54); Hemoglobin 14.8 g/dL (13.0-16.5); Mean Corp Hgb Conc 33.5 g/dL (32-36); Mean Corpuscular Hgb 27.9 pg (27.0-32.0); Mean Corpuscular Volume 83.2 fL (80-94); Mean Platelet Vol. 9.2 fl (6.2-12.0); Platelet Count 346 K/mm3 (150-450); RBC Distribution Width CV 12.6 % (11.6-14.6); RBC Distribution Width SD 38.3 fl (35.1-43.9); Red Blood Count 5.31 M/mm3 (4.6-6.2); White Blood Count 15.4 K/mm3 (4.4-11.0)
[2022-12-28 06:44] LABS: ALB/GLOB Ratio 1.1 RATIO (0.9-2.4); AST(SGOT) 12 U/L (15-37); Alanine Aminotransfer ALT/SGPT 24 U/L (16-61); Albumin, Serum 3.9 g/dL (3.2-5.0); Alkaline Phosphatase 90 U/L (45-117); Anion Gap 7 (5-15); BUN 17 mg/dL (7-18); Chloride 104 mmol/L (98-107); Creatinine, Serum 1.13 mg/dL (0.70-1.30); EST Glomerular Filtration Rate 83 mL/min (>60); Est Glom Filt Rate - Afr Amer 100 mL/min (>60); Estimated Creatinine Clearance 107.92 ml/min; Globulin 3.4 g/dL (2.2-4.2); Glucose 140 mg/dL (74-106); Potassium 3.3 mmol/L (3.5-5.1); Protein, Total 7.3 g/dL (6.4-8.2); Sodium Level 135 mmol/L (136-145)
[2022-12-28] MEDS: Acetaminophen 325 MG Tablet 650 MG PO (07:24)
[2022-12-28] MEDS: cloNIDine HCl 0.1 MG Tablet PO (07:49)
[2022-12-28 09:03] VITALS: BP 147/88; PULSE 100; RESP 16; TEMP 37.7; O2SAT 98
[2022-12-28] MEDS: Potassium Chloride Oral Tablet 20 MEQ 40 MEQ PO (09:37)
[2022-12-28 11:21] VITALS: BP 135/77; PULSE 77; RESP 16; TEMP 37.7; O2SAT 96
--- NOTE | 2022-12-28 12:34 | ADDICTION ---
This marketing copywriter met with PT to conduct ASAM, MSE, AUDIT, DUDIT assessments and to plan for d/c. PT A+Ox4 and participated actively. All assessments completed, placed in PT's chart. PT plans to f/u with individual counselor at [facility] for outpatient treatment services. PT did not indicate a need for transportation post d/c from [facility].
[2022-12-28] MEDS: Ondansetron 8 MG Tablet PO (12:47)
--- NOTE | 2022-12-28 13:37 | PCM.PN.HOSP ---
Reason for Visit Reason for Visit: Diagnoses Opioid dependence, uncomplicated (12/27/22) Subjective Subjective Patient generally aching and comfortable, has some right-sided head and shoulder pain from his fall Objective Data Objective Data Vital Signs: Vital Signs Temp Pulse Resp BP Pulse Ox O2 Del Method 99.9 F H 77 16 135/77 H 96 Room Air 12/28/22 11:21 12/28/22 11:21 12/28/22 11:21 12/28/22 11:21 12/28/22 11:21 12/28/22 11:21 Oxygen Delivery Method Room Air Weight: 77.7 kg Body Mass Index (BMI) 21.9 Intake & Output: Intake and Output for Last 24 Hours 12/26/22 12/27/22 12/28/22 23:59 23:59 23:59 Intake Total 350 / 350 Balance 350 / 350 Lab / Micro Data 12/28/22 05:45 12/28/22 05:45 Labs: Laboratory Results - last 24 hr 12/27/22 16:30: WBC 17.0 H, RBC 5.68, Hgb 15.8, Hct 47.4, MCV 83.5, MCH 27.8, MCHC 33.3, RDW Std Deviation 38.3, RDW Coeff of Cecilio 12.6, Plt Count 362, MPV 9.3, Immature Gran % (Auto) 0.500, Neut % (Auto) 87.7 H, Lymph % (Auto) 6.5 L, [place] % (Auto) 4.7, Eos % (Auto) 0.4, Baso % (Auto) 0.2, Absolute Neuts (auto) 14.9 H, Absolute Lymphs (auto) 1.11, Nucleated RBC % 0, Sodium 137, Potassium 3.5, Chloride 110 H, Carbon Dioxide 22.0, Anion Gap 5, BUN 15, Creatinine 1.00, Estim Creat Clear Calc 121.95, Est GFR (MDRD) Af Amer 115, Est GFR (MDRD) Non-Af 95, BUN/Creatinine Ratio 15.0, Glucose 113 H, Calcium 9.7, Total Bilirubin 1.30 H, AST 15, ALT 25, Alkaline Phosphatase 92, Total Protein 7.7, Albumin 4.1, Globulin 3.6, Albumin/Globulin Ratio 1.1, Ethyl Alcohol < 3.0, HIV 1&2 Antibody Non-Reactive 12/27/22 17:00: Urine Color Yellow, Urine Clarity Clear, Urine pH 6.5, Ur Specific [place] 1.020, Urine Protein 30 H, Urine Glucose (UA) Normal, Urine Ketones 5 H, Urine Occult Blood Negative, Urine Nitrite Negative, Urine Bilirubin 1 H, Urine Urobilinogen 4 H, Ur Leukocyte Esterase 25 H, Urine RBC 0 SEEN, Urine WBC 0 SEEN, Ur Squamous Epith Cells 0 SEEN, Calcium Oxalate Crystal 2+, Urine Bacteria 1+, Urine Mucus 1+, Urine Opiates Screen NEGATIVE, Urine Methadone Screen NEGATIVE, Ur Barbiturates Screen NEGATIVE, Ur Phencyclidine Scrn NEGATIVE, Ur Amphetamines Screen NEGATIVE, MDMA (Ecstasy) Screen POSITIVE H, U Benzodiazepines Scrn NEGATIVE, Urine Cocaine Screen NEGATIVE, U Cannabinoids Screen POSITIVE H, Ur Drug Screen Comment 12/28/22 05:45: WBC 15.4 H, RBC 5.31, Hgb 14.8, Hct 44.2, MCV 83.2, MCH 27.9, MCHC 33.5, RDW Std Deviation 38.3, RDW Coeff of Cecilio 12.6, Plt Count 346, MPV 9.2, Sodium 135 L, Potassium 3.3 L, Chloride 104, Carbon Dioxide 24.0, Anion Gap 7, BUN 17, Creatinine 1.13, Estim Creat Clear Calc 107.92, Est GFR (MDRD) Af Amer 100, Est GFR (MDRD) Non-Af 83, BUN/Creatinine Ratio 15.0, Glucose 140 H, Calcium 9.0, Total Bilirubin 1.40 H, AST 12 L, ALT 24, Alkaline Phosphatase 90, Total Protein 7.3, Albumin 3.9, Globulin 3.4, Albumin/Globulin Ratio 1.1 Radiography Diagnostic Testing: Radiology Impression Chest X-Ray 12/27/22 16:15 IMPRESSION: No acute cardiopulmonary abnormality. No interval change. Electronically Signed: Edouard Velazquez MD at 16:51 EDT , Brain CT 12/27/22 16:39 IMPRESSION: No acute intracranial abnormality. Electronically Signed: Los Casiano MD at 17:41 EDT , Cervical Spine CT 12/27/22 16:39 IMPRESSION: No evidence of acute cervical spinal fracture or spondylolisthesis. Electronically Signed: Los Casiano MD at 17:41 EDT , Physical Exam Narrative General: Alert, oriented, no apparent distress HEENT: Atraumatic, normocephalic Eyes: extraocular movements grossly intact Neck: Supple Respiratory: normal respiratory effort Cardiovascular: no edema appreciated GI: nondistended Extremities: Moving all extremities Neuro: No overt focal neurological deficits Psych: Cooperative, tearful at times Assessment & Plan Assessment/Plan (1) Opiate addiction: PLAN: Plan Patient is a 27-year-old male with history of opiate use disorder and polysubstance use disorder who presented to [facility] ED on 12/27/2022 after a fall. ED work-up negative for acute imaging or lab abnormalities. Patient admitted at his request for opiate detoxification. 1. Opiate use disorder, polysubstance use disorder Every other day user of intranasal fentanyl. Has gone through hospital detoxification before, last time was here at the end of August. Tolerated detoxification well at that time with medications provided in order set. Currently having withdrawal symptoms. UDS positive for ecstasy and cannabinoids, but notably fentanyl does not register on UDS. ? Admit under inpatient status to [facility]. Opiate withdrawal order set placed. Case management consulted. -12/28: [facility], continue present management supportive care 2. Fall Seems most likely mechanical fall, likely secondary to drug intoxication. Superficial abrasion to bridge of the nose and right cheek, otherwise no injuries noted. Chest x-ray nonacute. CT brain and cervical spine was negative. Labs with mild abnormalities as noted below, no significant concerns. ? No further management needed. -12/28: Patient has been up and ambulatory in the halls without difficulty 3. Leukocytosis ? WBC count of 17 on admit. Likely reactive, low concern for infectious etiology at this time. Follow-up a.m. CBC. -12/28: No localizing signs or symptoms of infection 4. Elevated total bilirubin ? Mildly elevated at 1.30. LFTs otherwise normal. Acute hepatitis panel and HIV ordered. 12/28: Hepatitis panel pending, HIV negative DVT prophylaxis: Ambulate CODE STATUS: Full code, verified Expected disposition: Home, 2 to 3 days Total clinical time spent by myself addressing the patient's medical issues, reviewing all the data, and collaborating with patient's care team: 30 minutes. Charges/Coding Visit Charges Inpatient E&M: 61007 Subs Hosp L1
--- NOTE | 2022-12-28 15:14 | PN.HOSP_ITS ---
Hospitalist Note Pt signed out AMA
--- NOTE | 2022-12-28 15:14 | PCM.HOSP.N ---
Hospitalist Note Pt signed out AMA
[2022-12-29 10:07] LABS: HEPATITIS B SURFACE AG Negative (Negative); Hep C Antibodies Non Reactive (Non Reactive); Hepatitis A IgM Antibody Negative (Negative); Hepatitis B Core AB IgM Negative (Negative)
== END 2022-12-28 13:50 | disposition left against medical advice (07) | DRG 770 ==
LOC: ED 16:29 → MS3 18:14
PROVIDERS: Admitting Provider Hospitalist; Emergency Provider Emergency Medicine; PCP Physician Assistant; Visit Provider Internal Medicine
DX: F11.23 Opioid dependence with withdrawal (principal); F12.90 Cannabis use, unspecified, uncomplicated; F19.19 Other psychoactive substance abuse with unspecified psychoactive substance-induced disorder; S20.20XA Contusion of thorax, unspecified, initial encounter; S00.31XA Abrasion of nose, initial encounter; S00.81XA Abrasion of other part of head, initial encounter; F17.210 Nicotine dependence, cigarettes, uncomplicated; W10.9XXA Fall (on) (from) unspecified stairs and steps, initial encounter; Z53.29 Procedure and treatment not carried out because of patient's decision for other reasons
CPT/HCPCS: 36415; 70450; 71045; 72125; 80053; 80074; 80307; 81001; 82077; 85025; 85027; 86703; 93005; 97802; 99285

== ENCOUNTER 2025-03-02 18:30 | Inpatient (IN) | payer MEDICAID, SELFPAY ==
[2025-03-02 18:31] VITALS: BP 100/67; PULSE 68; RESP 15; TEMP 36; O2SAT 97; BMI 21.6
--- NOTE | 2025-03-02 18:41 | EDS_ITS ---
HPI History of Present Illness Chief Complaint: Substance Abuse [facility] Medical History (Updated 12/27/22 @ 19:36 by Rinku Adan) Seizures Tobacco abuse Desire for detoxification Acute opioid withdrawal Polysubstance (including opioids) dependence with physiol dependence Cannabis abuse Asthma Tobacco abuse Home Medications ?Medication ?Instructions ?Recorded ?Last Taken ?Type NK 12/27/22 Unknown History Allergy/AdvReac Type Severity Reaction Status Date / Time amoxicillin trihydrate (From Allergy Rash Verified 03/02/25 18:33 Augmentin) potassium clavulanate (From Allergy Rash Verified 03/02/25 18:33 Augmentin) Family History Brother Hemophilia Father Diabetes Surgical History History of tonsillectomy Social History Smoking Status: Current every day smoker tobacco type: cigarettes alcohol intake: current alcohol intake frequency: holidays/special occasions only substance use type: marijuana, heroin, opiates and other details: Fentanyl EXAM Physical Exam Const Vital Signs: 03/02/25 18:31 Temperature 96.8 F L Temperature Source Temporal Pulse Rate 68 Respiratory Rate 15 Blood Pressure 100/67 Blood Pressure Mean 78 Pulse Ox 97 Oxygen Delivery Method Room Air [facility] MDM Narrative Medical decision making narrative: HISTORY OF PRESENT ILLNESS: Chief complaint: Opiate detox 29-year-old male history of opiate abuse presents with concern for detox. States he typically snorts fentanyl. Last use was approximately 6 hours ago. Denies IV drug use. Denies chest pain, shortness of breath, back pain. Denies fevers or chills. REVIEW OF SYSTEMS: Pertinent positives: As per HPI Pertinent negatives: As per HPI PHYSICAL EXAM: Nursing triage notes reviewed, Vital signs reviewed Constitutional: please see mdm HENT: MMM Eyes: Pupils equal round and reactive to light, Extraocular muscles intact Neck: No stridor, no JVD, full neck ROM Lungs: Clear to auscultation, No wheezing or rales. No increased work of breathing, no conversational dyspnea, no accessory muscle use, no nasal flaring. No respiratory distress noted Heart: Regular rate and rhythm, No murmurs, No rubs and No gallops, 2+ distal pulses (radial, femoral, posterior tibial) in all extremities Abdomen: Soft, there is no tenderness, rigidity, rebound or guarding, no obvious peritoneal signs, no palpable pulsatile abdominal masses, no auscultated abdominal bruit : No CVAT Extremities: No edema Neuro: No new focal neurological deficits, cranial nerves II through XII intact, 5/5 strength in all present extremities. Intact sensation to light touch in all present extremities, 2+ reflexes bilateral patella tendons. Skin: No rash or lesions noted MEDICAL DECISION MAKING: Chief Complaint: please see HPI External records reviewed: Reviewed prior ED visit predominantly 3 in which the patient presented with desire for detoxification Factors affecting care: Seizures, cannibis use, polysubstance abuse Social determinants of health: History of substance abuse History obtained from others: none Consults: Hospitalist discussed admission for detoxification MDM Narrative: Patient was initially hemodynamically stable, afebrile and nontoxic-appearing Medical clearance labs were obtained per rapid protocol. Will discuss with hospitalist. ALL IMAGES (IF OBTAINED) HAVE BEEN PERSONALLY REVIEWED AND INTERPRETED BY MYSELF. CBC with leukocytosis suggestive of systemic inflammation, noted very mild anemia with a hemoglobin 12.8, otherwise no thrombocytopenia. Pending chemistry the urine tox screen and serum alcohol level. Discussed case hospitalist agreed to admit the patient. The patient and/or family, caregivers express understanding. The patient and/or family, caregivers agrees with the plan. Shared decision making: I will have a discussion with the patient and or visitors regarding risk/benefits of further testing or admission. They will be made aware of of the risk/benefits inherent in this decision they will be given the opportunity to voice understanding. Total critical care time today provided was at least 0 minutes. This excludes separately billable procedures. Critical care time (if documented) is secondary to the patient having high probability of clinically significant/life threatening deterioration in the patient's condition which required my urgent intervention. Impression: 1. History of polysubstance abus 2. Encounter for detoxification admission Dispo: Admit to the floor This note was generated with [employer] dictation software. It may contain incorrect words, spelling, and punctuation that were not noted in review of the chart prior to signing. Lab Data Labs: Laboratory Results - last 24 hr 03/02/25 19:03 WBC 11.5 H RBC 4.55 L Hgb 12.8 L Hct 37.8 L MCV 83.1 MCH 28.1 MCHC 33.9 RDW Std Deviation 40.3 RDW Coeff of Cecilio 13.2 Plt Count 299 MPV 9.4 Immature Gran % (Auto) 0.300 Neut % (Auto) 64.5 Lymph % (Auto) 26.6 [place] % (Auto) 6.9 Eos % (Auto) 1.4 Baso % (Auto) 0.3 Absolute Neuts (auto) 7.4 Absolute Lymphs (auto) 3.05 Nucleated RBC % 0 Discharge Plan Triage Chief Complaint: Substance Abuse ED Provider: Ted Gonzalez Dx/Rx/DC Orders Primary Care Provider: Mylene Crawford NP
--- OUTSIDE RECORDS SUMMARY | 2025-03-02 19:16 | XMS RPT_ITS | CCD ---
Author Organization [facility] Care Team Providers Care Reconciler Name Role Phone Stacy Nicholson PA-C Primary Care Provider [phone] EVELYN Ugalde Primary Care Provider [phone] Dr. Fam Cha Emergency Provider [phone] Dr. Tory Chirinos Admit Provider Dr. Tory Chirinos Attending Provider Dr. Tory Chirinos Other Provider Dr. Yudelka Hernandez Attending Provider Dr. Yudelka Hernandez Other Provider EVELYN Ugalde Primary Care Provider Dr. [place] Menendez Emergency Provider Dr. Xander Olivera Admit Provider Dr. Xander Olivera Referring Provider Dr. Xander Olivera Other Provider Dr. Arnol Somers Attending Provider Dr. Arnol Somers Other Provider Stacy Nicholson PA-C Primary Care Provider [phone] [place] Menendez Attending Unavailable Stacy Nicholson Primary Care Unavailable Stacy Nicholson Primary Care Unavailable Akash Saucedo Attending Unavailable Xander Olivera Admitting Unavailable Xander Olivera Referring Unavailable Xander Olivera Consulting Unavailable tSacy Nicholson Primary Care Unavailable Arnol Somers Attending Unavailable Stacy Nicholson Primary Care Unavailable Nuamah, Henrietta Admitting Unavailable Nuamah, Henrietta Consulting Unavailable Hernandez, Yudelka Attending Unavailable Hernandez, Yudelka Consulting Unavailable [place] Menendez Referring Unavailable Joselin, Xander Admitting Unavailable Xander Olivera Attending Unavailable Xander Olivera Consulting Unavailable Stacy Nicholson Primary Care Unavailable Nuamah, Henrietta Attending Unavailable Agbibg, Xander Referring Unavailable Arnol Somers Attending Unavailable Arnol Somers Consulting Unavailable Stacy Nichoslon Primary Care Unavailable Regino Ledesma Attending Unavailable Regino Ledesma Consulting Unavailable Regino Ledesma Admitting Unavailable Yudelka Hernandez Attending Unavailable Hernandez, Yudelka Consulting Unavailable Nuamah, Henrietta Consulting Unavailable Nuamah, Henrietta Admitting Unavailable Yudelka Hernandez Attending Unavailable Stacy Nicholson Primary Care Unavailable Yudelka Hernandez Attending Unavailable Stacy Nicholson Primary Care Unavailable Regino Ledesma Consulting Unavailable Regino Ledesma Admitting Unavailable Chrissy Kramer Attending Unavailable Stacy Nicholson Primary Care Unavailable Stacy NICHOLSON Primary Care Unavailable Stacy NICHOLSON Attending Unavailable Stacy NICHOLSON Primary Care Unavailable Stacy NICHOLSON Primary Care Unavailable LUIGI CARROLL Referring Unavailable Allergies Allergy Classification Reported Allergen(s) Allergy Type Date of Onset Reaction(s) Facility (4 sources) Amoxicillin / Clavulanate; Translations: [AMOXICILLIN-POT CLAVULANATE] Drug Allergy 6 Rash [facility] Work Phone: (2 sources) environmental [Other] Propensity to adverse reactions 8 Cough [facility] Work Phone: (8 sources) Amoxicillin; Translations: [amoxicillin trihydrate] Drug Allergy 2 [facility] (8 sources) potassium clavulanate; Translations: [potassium clavulanate] Allergy to substance 2 [facility] (1 source) OTHER; Translations: [OTHER] Propensity to adverse reactions (disorder) 8 [facility] Repository Medications Current Medications Medication Drug Class(es) Dates Sig (Normalized) Sig (Original) acyclovir 800 mg oral tablet (1 source) Herpesvirus Nucleoside Analog DNA Polymerase Inhibitor, Herpes Simplex Virus Nucleoside Analog DNA Polymerase Inhibitor, Herpes Zoster Virus Nucleoside Analog DNA Polymerase Inhibitor Start: 06-28-2021 End: 12-25-2021 take 1 tablet by mouth three times daily acyclovir (ZOVIRAX) 800 mg tablet Indications: Herpetic lesions of face Take 1 tablet by mouth three times daily. Take at first signs of outbreak. 18 tablet 1 06/28/2021 12/25/2021 Active Comment on above: Take 1 tablet by melany th three times daily. Take at first signs of outbreak. Albuterol (7 sources) beta2-Adrenergic Agonist Start: 03-02-2022 Albuterol Active 90 MCG INHALATION March 02, 2022 12:00am Start: 03-02-2022 Albuterol Acti ve MCG INHALATION March 02, 2022 12:00am Start: 05-03-2021 albuterol HFA (PROVENTIL HFA, VENTOLIN HFA) 90 mcg/actuation inhaler Indications: Mild intermittent asthma with acute exacerbation Inhale 2 puffs with spacer as needed 18 g 1 05/03/2021 Active Comment on above: Inhale 2 puffs with spacer as needed clindamycin 150 mg oral capsule (1 source) Lincosamide Antibacterial Start: 05-02-19 End: 05-09-19 24 take 3 capsules by mouth three times daily clindamycin (CLEOCIN) 150 mg capsule Take 3 capsules by mouth three times a day for 7 days. 63 capsule 0 05/02/2023 05/09/2023 Active Comment on above: Take 3 capsules by m outh three times a day for 7 days. [place] (Nk) (1 source) Start: 02-20-20 [place] (Nk) Active February 19, 2022 12:00am Completed/Discontinued Medications Medication Drug Class(es) Dates Sig (Normalized) Sig (Original) acetaminophen 325 mg / HYDROcodone bitartrate 5 mg oral tablet (7 sources) Opioid Agonist Start: 10-12-2019 End: 10-14-2019 take 1 tablet by mouth every four hours as needed Hydrocodone-Acetam inophen Discontinued 1 TABLET PO EVERY 4 HOURS NEEDED 7 October 12, 2019 October 14, 2019 12:02am buprenorphine 8 mg / naloxone 2 mg sublingual film (3 sources) Partial Opioid Agonist, Opioid Antagonist buprenorphine-nalo xone (SUBOXONE) 8-2 mg film Dissolve 1 Film under the tongue twice daily. 0 Active Comment on above: Dissolve 1 Film unde r the tongue twice daily. hydrOXYzine hydrochloride 25 mg oral tablet (4 sources) Antihistamine Start: 11-04-2022 take 1 tablet by mouth every six hours as needed hydrOXYzine HCl (ATARAX) 25 mg tablet Take 1 tablet by mouth every 6 hours as needed for itching/rash. 60 tablet 5 11/04/2022 Active Start: 06-28-2021 End: 12-25-2021 take 1 capsule by mouth every twelve hours as needed hydrOXYzine pamoate (VISTARIL) 50 mg capsule Take 1 capsule by mouth twice daily as needed. 30 capsule 1 06/28/2021 12/25/2021 Active Comment on above: Take 1 capsule by mo uth twice daily as needed. Take 50 mg by mouth twice daily as needed. Take 1 tablet by melany th every 6 hours as needed for itching/rash. melatonin 3 mg disintegrating oral tablet (4 sources) End: take 1 capsule by mouth once daily at bedtime melatonin 3 mg capsules Take 3 mg by mouth daily at bedtime. 0 11/04/2022 Discontinued (Discontinued by Patient) End: 11-04-2022 melatonin 3 mg ODT Take by m outh. 0 11/04/2022 Discontinued (Discontinued by Patient) Comment on above: Take by mouth. Take 3 mg by mouth d aily at bedtime. omeprazole 20 mg delayed release oral capsule (1 source) Proton Pump Inhibitor Start: End: take 1 capsule by mouth once daily before breakfast omeprazole (PRILOSEC) 20 mg capsule Indications: Epigastric pain Take 1 capsule by mouth daily before breakfast. 1/2 hr before meal. 30 capsule 2 05/09/2020 06/28/2021 Discontinued Comment on above: Take 1 capsule by mo uth daily before breakfast. 1/2 hr before meal. traZODone hydrochloride 100 mg oral tablet (7 sources) Serotonin Reuptake Inhibitor Start: End: take 1 tablet by mouth once daily at bedtime traZODone (DESYREL) 100 mg tablet Take 1 tablet by mouth daily at bedtime. 30 tablet 5 11/04/2022 Active Comment on above: Take 1 tablet by melany th daily at bedtime. Take 100 mg by mouth daily at bedtime. 24 hr venlafaxine 150 mg extended release oral capsule (2 sources) Serotonin and Norepinephrine Reuptake Inhibitor Start: 021 End: 022 take 1 capsule by mouth once daily venlafaxine ER (EFFEXOR XR) 150 mg 24 hr capsule Take 1 capsule by mouth once daily. 90 capsule 1 06/27/2020 06/28/2021 Discontinued Start: 05-09-2020 End: 06-28-2021 take 1 capsule by mouth once daily venlafaxine ER (EFFEXOR XR) 75 mg 24 hr capsule Take 1 capsule by mouth once daily. 30 capsule 2 05/09/2020 06/28/2021 Discontinued Comment on above: Take 1 capsule by mo [facility] once daily. Problems Active Problems Problem Classification Problem Date Documented Da te Episodic/Chronic Acute and unspecified renal failure (9 sources) Prerenal azotemia; Translations: [Unspecified kidney failure] Onset: 04-25-2022 04-23-2022 Chronic Acute and unspecified renal failure (7 sources) Acute renal failure syndrome; Translations: [Acute kidney failure, unspecified] 02-28-2022 Episodic Adjustment disorders (1 source) Adjustment disorder with mixed anxiety and depressed mood; Translations: [Adjustment disorder with mixed anxiety and depressed mood] Chronic Anxiety disorders (6 sources) Generalized anxiety disorder; Translations: [Generalized anxiety disorder] Onset: 07-04-2014 Chronic Asthma (4 sources) Mild intermittent asthma; Translations: [Mild intermittent asthma with (acute) exacerbation] Onset: 08-11-2012 Chronic Cardiac dysrhythmias (13 sources) Tachycardia; Translations: [Tachycardia, unspecified] 04-23-2022 Episodic Disorders of teeth and jaw (1 source) Toothache; Translations: [Other specified disorders of teeth and supporting structures] 05-02-2023 Episodic Fluid and electrolyte disorders (4 sources) Mild dehydration; Translations: [Dehydration] 09-15-2022 Episodic Genitourinary symptoms and ill-defined conditions (6 sources) History of renal failure; Translations: [Personal history of other diseases of urinary system] 03-10-2022 Episodic Other circulatory disease (7 sources) Elevated blood pressure; Translations: [Elevated blood-pressure reading, without diagnosis of hypertension] 04-29-2021 Episodic Other nutritional; endocrine; and metabolic disorders (3 sources) Ketosis; Translations: [Other specified metabolic disorders] 04-23-2022 Chronic Other nutritional; endocrine; and metabolic disorders (3 sources) Other specified metabolic disorders; Translations: [Acidosis] 04-23-2022 Chronic Other upper respiratory disease (3 sources) Allergic rhinitis; Translations: [Allergic rhinitis, unspecified] Onset: 08-11-2012 08-11-2012 Chronic Residual codes; unclassified (9 sources) Tobacco user; Translations: [Tobacco use] 04-19-2021 Episodic Spondylosis; intervertebral disc disorders; other back problems (6 sources) Low back pain; Translations: [Low back pain] 03-10-2022 Episodic Substance-related disorders (20 sources) Opioid abuse; Translations: [Opioid abuse, uncomplicated] Onset: 10-26-2018 Chronic Unclassified (4 sources) Readiness finding; Translations: [Desire for detoxification] 09-15-2022 Past or Other Problems Problem Classification Problem Date Documented Da te Episodic/Chronic Abdominal pain (11 sources) Abdominal pain; Translations: [Unspecified abdominal pain] Onset: 04-25-2022 04-23-2022 Episodic Administrative/social admission (1 source) Patient encounter status; Translations: [Persons encountering health services in other specified circumstances] Onset: 01-23-2023 01-23-2023 Episodic Intracranial injury (3 sources) Concussion with less than 1 hour loss of consciousness; Translations: [Concussion with loss of consciousness of 30 minutes or less, initial encounter] Onset: 11-07-2009 11-07-2009 Episodic Nausea and vomiting (8 sources) Vomiting; Translations: [Vomiting, unspecified] Onset: 04-25-2022 02-28-2022 Episodic Other gastrointestinal disorders (1 source) Diarrhea, unspecified; Translations: [Diarrhea, unspecified] Onset: 04-25-2022 Episodic Residual codes; unclassified (3 sources) Tobacco use; Translations: [Tobacco use disorder] Onset: 09-25-2022 09-15-2022 Episodic Skin and subcutaneous tissue infections (3 sources) Abscess of foot, except toe; Translations: [Cellulitis of unspecified part of limb] Onset: 08-27-2007 08-27-2007 Episodic Substance-related disorders (16 sources) Opioid withdrawal; Translations: [Opioid use, unspecified with withdrawal] Onset: 04-25-2022 04-23-2022 Episodic Superficial injury; contusion (3 sources) Superficial injury of foot with infection; Translations: [Superficial foreign body, unspecified foot, initial encounter] Onset: 08-27-2007 08-27-2007 Episodic Viral infection (4 sources) Lesion of skin of face; Translations: [Herpesviral infection, unspecified] Onset: 06-08-2013 Episodic Results Test Name Value Interpretation Reference Range Facility OVon 05-02-2023 [facility]OV Office Visit ([facility] ) BRYAN LUNDBERG ([id number]) 1995 M Date Time Provider Department 05/02/23 6:00 PM MINOR GHOSH [facility] During your visit today, we recorded the following information about you: Temperature Pulse Respiration Blood pressure 97.7 degrees 121/minute 20/minute 134/96 Weight 79.8 kg Minor Ghosh APRN.CONSTRUCTION MANAGER 05/02/2023 6:22 PM Signed This note was created using NoteWriter. Subjective Bryan Lundberg is a 27 year old male. 27 year old male with PMH asthma and anxiety presents for dental pain. Acute onset 3 days ago +dental pain Right upper teeth +sensitivity to hot and cold foods +cheek swelling Has used ibuprofen and Tylenol +vapes Last seen a dentist 1 1/2 years ago Denies inability to open and or close Denies fever or chills The history is provided by the patient. No specialized language instructor was used. Dental Problem This is a new problem. The current episode started in the past 7 days. The problem occurs constantly. The problem has been gradually worsening. Pertinent negatives include no abdominal pain, anorexia, arthralgias, change in bowel habit, chest pain, chills, congestion, coughing, diaphoresis, fatigue, fever, headaches, joint swelling, myalgias, nausea, neck pain, numbness, rash, sore throat, swollen glands, urinary symptoms, vertigo, visual change, vomiting or weakness. Exacerbated by: eating and drinking. He has tried nothing for the symptoms. The treatment provided no relief. PAST MEDICAL HISTORY Diagnosis Date PMH - PAST MEDICAL HISTORY OF 12/22 normal color vision PMH - PAST MEDICAL HISTORY OF varicella Routine or ritual circumcision Unspecified asthma(493.90) seasonal PAST SURGICAL HISTORY Procedure Laterality Date ADENOIDECTOMY PRIMARY CIRCUMCISION W/CLAMP/OTH DEV W/BLOCK TONSILLECTOMY PRIMARY/SECONDARY TYMPANOSTOMY LOCAL/TOPICAL ANESTHESIA ALLERGIES Augmentin [Amoxicillin-Pot Clavulanate] MEDICATIONS clindamycin (CLEOCIN) 150 mg capsule Take 3 capsules by mouth three times a day for 7 days. traZODone (DESYREL) 100 mg tablet Take 1 tablet by mouth daily at bedtime. (Patient not taking: Reported on 05/02/2023) hydrOXYzine HCl (ATARAX) 25 mg tablet Take 1 tablet by mouth every 6 hours as needed for itching/rash. (Patient not taking: Reported on 05/02/2023) buprenorphine-naloxone (SUBOXONE) 8-2 mg film Dissolve 1 Film under the tongue twice daily. (Patient not taking: Reported on 11/04/2022) albuterol HFA (PROVENTIL HFA, VENTOLIN HFA) 90 mcg/actuation inhaler Inhale 2 puffs with spacer as needed (Patient not taking: Reported on 05/02/2023) FAMILY HISTORY Problem Relation Age of Onset None Mother None Father Hypertension Maternal Grandmother Diabetes Paternal Grandfather other (hemophilia) Brother Social History Tobacco Use Smoking status: Never Smokeless tobacco: Never Tobacco comments: vapes Vaping Use Vaping Use: current everyday user Substances: Nicotine Substance Use Topics Alcohol use: No Drug use: No Review of Systems Constitutional: Negative for chills, diaphoresis, fatigue and fever. HENT: Positive for dental problem. Negative for congestion, sinus pressure, sinus pain and sore throat. Eyes: Negative for pain, discharge and redness. Respiratory: Negative for apnea, cough, choking and chest tightness. Cardiovascular: Negative for chest pain. Gastrointestinal: Negative for abdominal pain, anorexia, change in bowel habit, nausea and vomiting. Musculoskeletal: Negative for arthralgias, joint swelling, myalgias and neck pain. Skin: Negative for rash. Allergic/Immunologic: Negative for environmental allergies, food allergies and immunocompromised state. Neurological: Negative for vertigo, weakness, numbness and headaches. Hematological: Negative for adenopathy. Does not bruise/bleed easily. Psychiatric/Behavioral: Negative for agitation and behavioral problems. Objective BP 134/96 Pulse (!) 121 Temp 36.5 ?C (97.7 ?F) Resp 20 Wt 79.8 kg (176 lb) SpO2 98% BMI 22.60 kg/m? Physical Exam Vitals and nursing note reviewed. Constitutional: General: He is not in acute distress. Appearance: Normal appearance. He is not ill-appearing, toxic-appearing or diaphoretic. HENT: Head: Normocephalic and atraumatic. Comments: +maxillary swelling, right side Right Ear: External ear normal. Left Ear: External ear normal. Nose: Nose normal. No congestion or rhinorrhea. Mouth/Throat: Mouth: Mucous membranes are moist. Pharynx: Oropharynx is clear. No oropharyngeal exudate or posterior oropharyngeal erythema. Eyes: General: Right eye: No discharge. Left eye: No discharge. Extraocular Movements: Extraocular movements intact. Conjunctiva/sclera: Conjunctivae normal. Pupils: Pupils are equal, round, and reactive to light. Cardiovascular: Rate and Rhythm: Normal rate (more content not included)... Normal [facility] CBC W/Diff, Automatedon 10-0 -2022 Absolute Neut Normal 2.0-7.7 [facility] Comment on above: Result Comment: Canc elled via OM: Order cancelled - Patient discharged Performed By: #### L [id number], L100.0100, L500.2500 #### [facility] [address] [place], [address] HCT Normal 40-54 [facility] Comment on above: Result Comment: Canc elled via OM: Order cancelled - Patient discharged Performed By: #### L [id number], L100.0100, L500.2500 #### [facility] [address] [place], [address] HGB Normal 13.0-16.5 [facility] Comment on above: Result Comment: Canc elled via OM: Order cancelled - Patient discharged Performed By: #### L [id number], L100.0100, L500.2500 #### [facility] [address] [place], [address] MCH Normal 27.0-32.0 [facility] Comment on above: Result Comment: Canc elled via OM: Order cancelled - Patient discharged Performed By: #### L [id number], L100.0100, L500.2500 #### [facility] [address] [place], [address] MCHC Normal 32-36 [facility] Comment on above: Result Comment: Canc elled via OM: Order cancelled - Patient discharged Performed By: #### L [id number], L100.0100, L500.2500 #### [facility] [address] [place], [address] MCV Normal 80-94 [facility] Comment on above: Result Comment: Canc elled via OM: Order cancelled - Patient discharged Performed By: #### L [id number], L100.0100, L500.2500 #### [facility] [address] [place], [address] NEUT% Normal 47-70 [facility] Comment on above: Result Comment: Canc elled via OM: Order cancelled - Patient discharged Performed By: #### L [id number], L100.0100, L500.2500 #### [facility] [address] [place], [address] PLT Normal 150-450 [facility] Comment on above: Result Comment: Canc elled via OM: Order cancelled - Patient discharged Performed By: #### L [id number], L100.0100, L500.2500 #### [facility] [address] [place], [address] RBC Normal 4.6-6.2 [facility] Comment on above: Result Comment: Canc elled via OM: Order cancelled - Patient discharged Performed By: #### L [id number], L100.0100, L500.2500 #### [facility] [address] [place], [address] RDW CV Normal 11.6-14.6 [facility] Comment on above: Result Comment: Canc elled via OM: Order cancelled - Patient discharged Performed By: #### L [id number], L100.0100, L500.2500 #### [facility] [address] [place], [address] RDW SD Normal 35.1-43.9 [facility] Comment on above: Result Comment: Canc elled via OM: Order cancelled - Patient discharged Performed By: #### L [id number], L100.0100, L500.2500 #### [facility] [address] [place], [address] WBC Normal 4.4-11.0 [facility] Comment on above: Result Comment: Canc elled via OM: Order cancelled - Patient discharged Performed By: #### L [id number], L100.0100, L500.2500 #### [facility] [address] [place], [address] Comprehensive Metabolic Prof ilon 12-29-2022 ALB Normal 3.2-5.0 [facility] Comment on above: Result Comment: Canc elled via OM: Order cancelled - Patient discharged Performed By: #### L [id number], L100.0100, L500.2500 #### [facility] [address] [place], [address] ALK P Normal 45-117 [facility] Comment on above: Result Comment: Canc elled via OM: Order cancelled - Patient discharged Performed By: #### L [id number], L100.0100, L500.2500 #### [facility] [address] [place], [address] ALT Normal 16-61 [facility] Comment on above: Result Comment: Canc elled via OM: Order cancelled - Patient discharged Performed By: #### L [id number], L100.0100, L500.2500 #### [facility] [address] [place], [address] AST Normal 15-37 [facility] Comment on above: Result Comment: Canc elled via OM: Order cancelled - Patient discharged Performed By: #### L [id number], L100.0100, L500.2500 #### [facility] [address] [place], [address] BUN Normal 7-18 [facility] Comment on above: Result Comment: Canc elled via OM: Order cancelled - Patient discharged Performed By: #### L [id number], L100.0100, L500.2500 #### [facility] [address] [place], [address] BUN/CRE Normal 10-20 [facility] Comment on above: Result Comment: Canc elled via OM: Order cancelled - Patient discharged Performed By: #### L [id number], L100.0100, L500.2500 #### [facility] [address] [place], [address] CA,Total Normal 8.5-10.1 [facility] Comment on above: Result Comment: Canc elled via OM: Order cancelled - Patient discharged Performed By: #### L [id number], L100.0100, L500.2500 #### [facility] [address] [place], [address] CL Normal 98-107 [facility] Comment on above: Result Comment: Canc elled via OM: Order cancelled - Patient discharged Performed By: #### L [id number], L100.0100, L500.2500 #### [facility] [address] [place], [address] CO2 Normal 21.0-32.0 [facility] Comment on above: Result Comment: Canc elled via OM: Order cancelled - Patient discharged Performed By: #### L [id number], L100.0100, L500.2500 #### [facility] [address] [place], [address] CREAT,SERUM Normal 0.70-1.30 [facility] Comment on above: Result Comment: Canc elled via OM: Order cancelled - Patient discharged Performed By: #### L [id number], L100.0100, L500.2500 #### [facility] [address] [place], [address] EST GFR Normal >60 [facility] Comment on above: Result Comment: Canc elled via OM: Order cancelled - Patient discharged Performed By: #### L [id number], L100.0100, L500.2500 #### [facility] [address] [place], [address] EST GFR - AA Normal >60 [facility] Comment on above: Result Comment: Canc elled via OM: Order cancelled - Patient discharged Performed By: #### L [id number], L100.0100, L500.2500 #### [facility] [address] [place], [address] GAP Normal 5-15 [facility] Comment on above: Result Comment: Canc elled via OM: Order cancelled - Patient discharged Performed By: #### L [id number], L100.0100, L500.2500 #### [facility] [address] [place], [address] GLU Normal 74-106 [facility] Comment on above: Result Comment: Canc elled via OM: Order cancelled - Patient discharged Performed By: #### L [id number], L100.0100, L500.2500 #### [facility] [address] [place], [address] Potassium Normal 3.5-5.1 [facility] Comment on above: Result Comment: Canc elled via OM: Order cancelled - Patient discharged Performed By: #### L [id number], L100.0100, L500.2500 #### [facility] [address] [place], [address] T BILI Normal 0.20-1.00 [facility] Comment on above: Result Comment: Canc elled via OM: Order cancelled - Patient discharged Performed By: #### L [id number], L100.0100, L500.2500 #### [facility] [address] [place], [address] T PROT Normal 6.4-8.2 [facility] Comment on above: Result Comment: Canc elled via OM: Order cancelled - Patient discharged Performed By: #### L 501.3620, L100.0100, L500.2500 #### [facility] [address] [place], [address] Comprehensive Metabolic Profil Normal 136-145 [facility] Comment on above: Result Comment: Canc elled via OM: Order cancelled - Patient discharged Performed By: #### L 501.3620, L100.0100, L500.2500 #### [facility] [address] [place], [address] Hepatitis Panel Acuteon 10-0 COMMENT Comment Normal . [facility] Comment on above: Result Comment: Not infected with HCV unless early or acute infection is suspected (which may be delayed in an immunocompromised individual), or other evidence exists to indicate HCV infection. Performed at: [facility] [address] [id number] Cardiac Rehab Nurse: Rafi Merchant PhD, Phone: [phone] Performed By: #### L 501.3620, L100.0100, L500.2500 #### [facility] [address] [place], [address] HEP B CORE,IgM Negative Normal Negative [facility] Comment on above: Performed By: #### L 501.3620, L100.0100, L500.2500 #### [facility] [address] [place], [address] HEP B SURF AG Negative Normal Negative [facility] Comment on above: Performed By: #### L 501.3620, L100.0100, L500.2500 #### [facility] [address] [place], [address] HEP C VIRUS AB Non-Reactive Normal Non Reactive [facility] Comment on above: Performed By: #### L 501.3620, L100.0100, L500.2500 #### [facility] [address] [place], [address] HEPATITIS A-IgM Negative Normal Negative [facility] Comment on above: Performed By: #### L 501.3620, L100.0100, L500.2500 #### [facility] [address] [place], [address] CBC-Complete Blood Cnt No Di ffon 12-28-2022 Erythrocyte distribution width (RBC) [Ratio] 12.6 % Normal 11.6-14.6 [facility] Comment on above: Performed By: #### L 501.9100, L505.5000 #### [facility] [address] [place], [address] Hematocrit (Bld) [Volume fraction] 44.2 % Normal 40-54 [facility] Comment on above: Performed By: #### L 501.9100, L505.5000 #### [facility] [address] [place], [address] Hemoglobin (Bld) [Mass/Vol] 14.8 g/dL Normal 13.0-16.5 [facility] Comment on above: Performed By: #### L 501.9100, L505.5000 #### [facility] [address] [place], [address] MCH (RBC) [Entitic mass] 27.9 pg Normal 27.0-32.0 [facility] Comment on above: Performed By: #### L 501.9100, L505.5000 #### [facility] [address] [place], [address] MCHC (RBC) [Mass/Vol] 33.5 g/dL Normal 32-36 [facility] Comment on above: Performed By: #### L 501.9100, L505.5000 #### [facility] [address] [place], [address] MCV (RBC) [Entitic vol] 83.2 fL Normal 80-94 [facility] Comment on above: Performed By: #### L 501.9100, L505.5000 #### [facility] [address] [place], [address] Platelet mean volume (Bld) [Entitic vol] 9.2 fL Normal 6.2-12.0 [facility] Comment on above: Performed By: #### L 501.9100, L505.5000 #### [facility] [address] [place], [address] Platelets (Bld) [#/Vol] 346 10*3/uL Normal 150-450 [facility] Comment on above: Performed By: #### L 501.9100, L505.5000 #### [facility] [address] [place], [address] RBC (Bld) [#/Vol] 5.31 10*6/uL Normal 4.6-6.2 [facility] Comment on above: Performed By: #### L 501.9100, L505.5000 #### [facility] [address] [place], [address] RDW SD 38.3 fl Normal 35.1-43.9 [facility] Comment on above: Performed By: #### L 501.9100, L505.5000 #### [facility] [address] [place], [address] WBC (Bld) [#/Vol] 15.4 10*3/uL High 4.4-11.0 [facility] Comment on above: Performed By: #### L 501.9100, L505.5000 #### [facility] [address] [place], [address] Comprehensive Metabolic Prof ilon 12-28-2022 Albumin [Mass/Vol] 3.9 g/dL Normal 3.2-5.0 [facility] Comment on above: Performed By: #### L 501.9100, L505.5000 #### [facility] [address] [place], [address] Albumin/Globulin [Mass ratio] 1.1 {ratio} Normal 0.9-2.4 [facility] Comment on above: Performed By: #### L 501.9100, L505.5000 #### [facility] [address] [place], [address] ALK P 90 U/L Normal 45-117 [facility] Comment on above: Performed By: #### L 501.9100, L505.5000 #### [facility] [address] [place], [address] ALT [Catalytic activity/Vol] 24 U/L Normal 16-61 [facility] Comment on above: Performed By: #### L 501.9100, L505.5000 #### [facility] [address] [place], [address] AST [Catalytic activity/Vol] 12 U/L Low 15-37 [facility] Comment on above: Performed By: #### L 501.9100, L505.5000 #### [facility] [address] [place], [address] Bilirubin [Mass/Vol] 1.40 mg/dL High 0.20-1.00 [facility] Comment on above: Result Comment: For patients on eltrombopag therapy, use of Dimension [place] TBIL is not recommended. Performed By: #### L 501.9100, L505.5000 #### [facility] [address] [place], [address] BUN/CRE 15.0 RATIO Normal 10-20 [facility] Comment on above: Performed By: #### L 501.9100, L505.5000 #### [facility] [address] [place], [address] CA,Total 9.0 mg/dL Normal 8.5-10.1 [facility] Comment on above: Performed By: #### L 501.9100, L505.5000 #### [facility] [address] [place], [address] Chloride [Moles/Vol] 104 mmol/L Normal 98-107 [facility] Comment on above: Performed By: #### L 501.9100, L505.5000 #### [facility] [address] [place], [address] CO2 [Moles/Vol] 24.0 mmol/L Normal 21.0-32.0 [facility] Comment on above: Performed By: #### L 501.9100, L505.5000 #### [facility] [address] [place], [address] Creatinine [Mass/Vol] 1.13 mg/dL Normal 0.70-1.30 [facility] Comment on above: Result Comment: The validity of the calculated GFR GFRAA in patients over 70 years has not been determined. Clinical correlation is essential. Performed By: #### L 501.9100, L505.5000 #### [facility] [address] [place], [address] ECRCL 107.92 ml/min Normal [facility] Comment on above: Performed By: #### L 501.9100, L505.5000 #### [facility] [address] [place], [address] EST GFR - AA 100 mL/min Normal >60 [facility] Comment on above: Result Comment: Afri can Citizen [place] GFR Calc Performed By: #### L 501.9100, L505.5000 #### [facility] [address] [place], [address] GAP 7 Normal 5-15 [facility] Comment on above: Performed By: #### L 501.9100, L505.5000 #### [facility] [address] [place], [address] GFR/1.73 sq M.predicted among non-blacks MDRD (S/P/Bld) [Vol rate/Area] 83 mL/min/{1.73_m2} Normal >60 [facility] Comment on above: Result Comment: Non- GFR Calc Performed By: #### L 501.9100, L505.5000 #### [facility] [address] [place], [address] Globulin (S) [Mass/Vol] 3.4 g/dL Normal 2.2-4.2 [facility] Comment on above: Performed By: #### L 501.9100, L505.5000 #### [facility] [address] [place], [address] Glucose [Mass/Vol] 140 mg/dL High 74-106 [facility] Comment on above: Result Comment: Fast ing Glucose result greater than or equal to 126 mg/dL suggests DIABETES MELLITUS per A.D.A. criteria. Performed By: #### L 501.9100, L505.5000 #### [facility] [address] [place], [address] Potassium [Moles/Vol] 3.3 mmol/L Low 3.5-5.1 [facility] Comment on above: Performed By: #### L 501.9100, L505.5000 #### [facility] [address] [place], [address] Sodium [Moles/Vol] 135 mmol/L Low 136-145 [facility] Comment on above: Performed By: #### L 501.9100, L505.5000 #### [facility] [address] [place], [address] T PROT 7.3 g/dL Normal 6.4-8.2 [facility] Comment on above: Performed By: #### L 501.9100, L505.5000 #### [facility] [address] [place], [address] Urea nitrogen [Mass/Vol] 17 mg/dL Normal 7-18 [facility] Comment on above: Performed By: #### L 501.9100, L505.5000 #### [facility] [address] [place], [address] Alcohol, Blood (Medical)-Ser umon 12-27-2022 SERUM ETOH < 3.0 Normal [facility] Comment on above: Result Comment: The serum:whole blood ethanol ratio is approximately 1.14 and varies slightly with hematocrit. Medical Alcohol reference interval and critical value in non-tolerant individuals; 50 - 100 Impairment 100 Intoxication 100 - 250 Severe Poisoning 250 - 400 Deep/possible fatal coma Performed By: #### L 501.3620, L100.0100, L500.2500 #### [facility] [address] [place], [address] Brain/Head without Contrasto n 12-27-2022 Brain/Head without Contrast [facility] Imaging Services [address] [place] [address] Brain/Head without Contrast MR#: [id number] Acct: [id number] Name: BRYAN LUNDBERG Rep #: [id number] : 1995 M 27 From: Los matias MD PCP: EVELYN Phan Status: REG ER Study: Brain/Head without Contrast Date of Exam: 09/13 Exam# [id number] Ordering Dr: [place] [id number] EXAMINATION : Head CT w/out contrast HISTORY : trauma COMPARISON : None. TECHNIQUE : Multiple contiguous axial images were obtained from the skull base to the vertex without intravenous contrast. A radiation dose optimization technique was used for this scan. FINDINGS : The ventricles and sulci are normal in size. There is no evidence for acute intracranial hemorrhage, mass effect, or midline shift. There is no extra-axial fluid collection. There is normal marie-white differentiation, without CT evidence of acute ischemia or infarct. The skull base and calvarium are unremarkable. The orbits are unremarkable. The paranasal sinuses are clear. The mastoid air cells are well-aerated. The soft tissues are unremarkable. CT/Brain/Head without Contrast IMPRESSION: No acute intracranial abnormality. Electronically Signed: Los Casiano MD at 17:41 EDT , CC: Dr. Cecilio Acosta DO; EVELYN Phan Edge Baster: Signed Normal [facility] CBC W/Diff, Automatedon Absolute Lymph 1.11 X10 3/uL Normal 0.83-4.51 [facility] Comment on above: Performed By: #### L 501.3620, L100.0100, L500.2500 #### [facility] [address] [place], [address] Absolute Neut 14.9 X10 3/uL High 2.0-7.7 [facility] Comment on above: Performed By: #### L 501.3620, L100.0100, L500.2500 #### [facility] [address] [place], [address] Basophils/100 WBC (Bld) 0.2 % Normal 0-1 [facility] Comment on above: Performed By: #### L 501.3620, L100.0100, L500.2500 #### [facility] [address] [place], [address] Eosinophils/100 WBC (Bld) 0.4 % Normal 0-5 [facility] Comment on above: Performed By: #### L 501.3620, L100.0100, L500.2500 #### [facility] [address] [place], [address] Erythrocyte distribution width (RBC) [Ratio] 12.6 % Normal 11.6-14.6 [facility] Comment on above: Performed By: #### L 501.3620, L100.0100, L500.2500 #### [facility] [address] [place], [address] Hematocrit (Bld) [Volume fraction] 47.4 % Normal 40-54 [facility] Comment on above: Performed By: #### L 501.3620, L100.0100, L500.2500 #### [facility] [address] [place], [address] Hemoglobin (Bld) [Mass/Vol] 15.8 g/dL Normal 13.0-16.5 [facility] Comment on above: Performed By: #### L 501.3620, L100.0100, L500.2500 #### [facility] [address] [place], [address] IG% 0.500 Normal 0.0-0.9 [facility] Comment on above: Result Comment: IG% - Immature Granulocytes (promyelocytes, myelocytes and metamyelocytes) > 1% indicates that a LEFT SHIFT is Present. Performed By: #### L 501.3620, L100.0100, L500.2500 #### [facility] [address] [place], [address] Lymphocytes/100 WBC (Bld) 6.5 % Low 19-41 [facility] Comment on above: Performed By: #### L 501.3620, L100.0100, L500.2500 #### [facility] [address] [place], [address] MCH (RBC) [Entitic mass] 27.8 pg Normal 27.0-32.0 [facility] Comment on above: Performed By: #### L 501.3620, L100.0100, L500.2500 #### [facility] [address] [place], [address] MCHC (RBC) [Mass/Vol] 33.3 g/dL Normal 32-36 [facility] Comment on above: Performed By: #### L 501.3620, L100.0100, L500.2500 #### [facility] [address] [place], [address] MCV (RBC) [Entitic vol] 83.5 fL Normal 80-94 [facility] Comment on above: Performed By: #### L 501.3620, L100.0100, L500.2500 #### [facility] [address] [place], [address] Monocytes/100 WBC (Bld) 4.7 % Normal 0-10 [facility] Comment on above: Performed By: #### L 501.3620, L100.0100, L500.2500 #### [facility] [address] [place], [address] Neutrophils/100 WBC (Bld) 87.7 % High 47-70 [facility] Comment on above: Performed By: #### L 501.3620, L100.0100, L500.2500 #### [facility] [address] [place], [address] Nucleated RBC (Bld) [#/Vol] 0 10*3/uL Normal 0-5 [facility] Comment on above: Performed By: #### L 501.3620, L100.0100, L500.2500 #### [facility] [address] [place], [address] Platelet mean volume (Bld) [Entitic vol] 9.3 fL Normal 6.2-12.0 [facility] Comment on above: Performed By: #### L 501.3620, L100.0100, L500.2500 #### [facility] [address] [place], [address] Platelets (Bld) [#/Vol] 362 10*3/uL Normal 150-450 [facility] Comment on above: Performed By: #### L 501.3620, L100.0100, L500.2500 #### [facility] [address] [place], [address] RBC (Bld) [#/Vol] 5.68 10*6/uL Normal 4.6-6.2 [facility] Comment on above: Performed By: #### L 501.3620, L100.0100, L500.2500 #### [facility] [address] [place], [address] RDW SD 38.3 fl Normal 35.1-43.9 [facility] Comment on above: Performed By: #### L 501.3620, L100.0100, L500.2500 #### [facility] [address] [place], [address] WBC (Bld) [#/Vol] 17.0 10*3/uL High 4.4-11.0 [facility] Comment on above: Performed By: #### L 501.3620, L100.0100, L500.2500 #### [facility] [address] [place], [address] Chest 1 View (Portable)on Chest 1 View (Portable) [facility] Imaging Services [address] [place] [address] Chest 1 View (Portable) MR#: [id number] Acct: [id number] Name: BRYAN LUNDBERG Rep #: [id number] : 1995 M 27 From: Edouard Velazquez MD PCP: EVELYN Phan Status: [facility] ER Study: Chest 1 View (Portable) Date of Exam: 12/27/22 Exam# [id number] Ordering Dr: [place] [id number] EXAM: XR CHEST, 1 VIEW CLINICAL INDICATION: dyspnea TECHNIQUE: Frontal view of the chest. COMPARISON: XR Chest dated 05/01/2022 FINDINGS: LUNGS AND PLEURAL SPACES: No consolidation or edema. No pneumothorax. No effusion. HEART: Normal heart size. MEDIASTINUM: No mediastinal or hilar mass. BONES/JOINTS: No acute abnormality. RAD/Chest 1 View (Portable) IMPRESSION: No acute cardiopulmonary abnormality. No interval change. Electronically Signed: Edouard Velazquez MD at 16:51 EDT , CC: Dr. Cecilio Acosta DO; EVELYN Phan Edge Baster: Signed Normal [facility] Comprehensive Metabolic Prof ilon 12-27-2022 Albumin [Mass/Vol] 4.1 g/dL Normal 3.2-5.0 [facility] Comment on above: Performed By: #### L 501.3620, L100.0100, L500.2500 #### [facility] [address] [place], [address] Albumin/Globulin [Mass ratio] 1.1 {ratio} Normal 0.9-2.4 [facility] Comment on above: Performed By: #### L 501.3620, L100.0100, L500.2500 #### [facility] [address] [place], [address] ALK P 92 U/L Normal 45-117 [facility] Comment on above: Performed By: #### L 501.3620, L100.0100, L500.2500 #### [facility] [address] [place], [address] ALT [Catalytic activity/Vol] 25 U/L Normal 16-61 [facility] Comment on above: Performed By: #### L 501.3620, L100.0100, L500.2500 #### [facility] [address] [place], [address] AST [Catalytic activity/Vol] 15 U/L Normal 15-37 [facility] Comment on above: Performed By: #### L 501.3620, L100.0100, L500.2500 #### [facility] [address] [place], [address] Bilirubin [Mass/Vol] 1.30 mg/dL High 0.20-1.00 [facility] Comment on above: Result Comment: For patients on eltrombopag therapy, use of Dimension [place] TBIL is not recommended. Performed By: #### L 501.3620, L100.0100, L500.2500 #### [facility] [address] [place], [address] BUN/CRE 15.0 RATIO Normal 10-20 [facility] Comment on above: Performed By: #### L 501.3620, L100.0100, L500.2500 #### [facility] [address] [place], [address] CA,Total 9.7 mg/dL Normal 8.5-10.1 [facility] Comment on above: Performed By: #### L 501.3620, L100.0100, L500.2500 #### [facility] [address] [place], [address] Chloride [Moles/Vol] 110 mmol/L High 98-107 [facility] Comment on above: Performed By: #### L 501.3620, L100.0100, L500.2500 #### [facility] [address] [place], [address] CO2 [Moles/Vol] 22.0 mmol/L Normal 21.0-32.0 [facility] Comment on above: Performed By: #### L 501.3620, L100.0100, L500.2500 #### [facility] [address] [place], [address] Creatinine [Mass/Vol] 1.00 mg/dL Normal 0.70-1.30 [facility] Comment on above: Result Comment: The validity of the calculated GFR GFRAA in patients over 70 years has not been determined. Clinical correlation is essential. Performed By: #### L 501.3620, L100.0100, L500.2500 #### [facility] [address] [place], [address] ECRCL 121.95 ml/min Normal [facility] Comment on above: Performed By: #### L 501.3620, L100.0100, L500.2500 #### [facility] [address] [place], [address] EST GFR - AA 115 mL/min Normal >60 [facility] Comment on above: Result Comment: Afri can Citizen [place] GFR Calc Performed By: #### L 501.3620, L100.0100, L500.2500 #### [facility] [address] [place], [address] GAP 5 Normal 5-15 [facility] Comment on above: Performed By: #### L 501.3620, L100.0100, L500.2500 #### [facility] [address] [place], [address] GFR/1.73 sq M.predicted among non-blacks MDRD (S/P/Bld) [Vol rate/Area] 95 mL/min/{1.73_m2} Normal >60 [facility] Comment on above: Result Comment: Non- GFR Calc Performed By: #### L 501.3620, L100.0100, L500.2500 #### [facility] [address] [place], [address] Globulin (S) [Mass/Vol] 3.6 g/dL Normal 2.2-4.2 [facility] Comment on above: Performed By: #### L 501.3620, L100.0100, L500.2500 #### [facility] [address] [place], [address] Glucose [Mass/Vol] 113 mg/dL High 74-106 [facility] Comment on above: Result Comment: Fast ing Glucose result from 100 to 125 mg/dL suggests IMPAIRED HOMEOSTASIS per A.D.A. criteria. Performed By: #### L 501.3620, L100.0100, L500.2500 #### [facility] [address] [place], [address] Potassium [Moles/Vol] 3.5 mmol/L Normal 3.5-5.1 [facility] Comment on above: Performed By: #### L 501.3620, L100.0100, L500.2500 #### [facility] [address] [place], [address] Sodium [Moles/Vol] 137 mmol/L Normal 136-145 [facility] Comment on above: Performed By: #### L 501.3620, L100.0100, L500.2500 #### [facility] [address] [place], [address] T PROT 7.7 g/dL Normal 6.4-8.2 [facility] Comment on above: Performed By: #### L 501.3620, L100.0100, L500.2500 #### [facility] [address] [place], [address] Urea nitrogen [Mass/Vol] 15 mg/dL Normal 7-18 [facility] Comment on above: Performed By: #### L 501.3620, L100.0100, L500.2500 #### [facility] [address] [place], [address] H AND P Exam - [facility] 12-27-2022 H&P Exam - Hospitalist [facility] Medical Records Department [address] [place] [address] H P Exam - Hospitalist 12/27/22 1756 MR#: [id number] Acct: [id number] Name: BRYAN LUNDBERG Rep #: [id number] : 1995 27 From: Regino Ledesma DO PCP: EVELYN Phan Status:ADM IN Location: [facility] [id number] HPI - General General Date of Admission: 12/27/22 Date of Service: 12/27/22 Chief Complaint: Opiate withdrawal HPI Narrative BRYAN LUNDBERG, is a 27 M with history of opiate use disorder and polysubstance use disorder who presented to [facility] ED on 12/27/2022 after a fall. ED work-up negative for acute imaging or lab abnormalities. Patient admitted at his request for opiate detoxification. Patient seen at bedside in the ED. Laying comfortably in bed, no acute distress. Patient reports generally feeling terrible secondary both to pain in his head and face from the fall as well as from opiate detoxification. He otherwise denies any fevers or chills, chest pain, shortness of breath, abdominal pain or discomfort. No other acute concerns currently. Vitals in ED unremarkable. Labs notable for WBC count 17, Aj 15.8, platelets 362, sodium 137, potassium 3.5, chloride 110, bicarb 22, BUN 15, creatinine 1.00, total bilirubin 1.30, LFTs otherwise normal. UA showed 30 protein, 5 ketones, otherwise benign. Urine drug screen showed positive ecstasy and cannabinoids; fentanyl notably is not detected on urine drug screen. Chest x- ray is nonacute. CT brain and C-spine was also nonacute. [facility] Medical History Acute opioid withdrawal Asthma Cannabis abuse Desire for detoxification Polysubstance (including opioids) dependence with physiol dependence Tobacco abuse Tobacco abuse Home Medications NK 12/27/22 [History Last Taken Unknown] Allergy/AdvReac Type Severity Reaction Status Date / Time amoxicillin trihydrate Allergy Rash Verified 12/27/22 16:13 [From Augmentin] potassium clavulanate Allergy Rash Verified 12/27/22 16:13 [From Augmentin] Family History Brother Hemophilia Father Diabetes Surgical History History of tonsillectomy Social History Smoking Status: Current every day smoker tobacco type: cigarettes alcohol intake: current alcohol intake frequency: holidays/special occasions only substance use type: marijuana, heroin, opiates and other details: Fentanyl ROS Constitutional Constitutional: Reports fatigue; Denies change in weight, chills, fever(s) or weakness Eyes Eyes: Denies change in vision ENT HEENT: Reports headache(s) Cardiovascular Cardiovascular: Denies chest pain, dyspnea on exertion or edema Respiratory/Chest Respiratory/Chest: Denies cough or shortness of breath at rest Gastrointestinal Gastrointestinal: Denies abdominal pain, constipation, diarrhea, nausea or vomiting Genitourinary Genitourinary: Denies dysuria Neurologic Neurologic: Denies confusion, dizziness, focal weakness, numbness or paresthesias Vital Signs Vital Signs Vital Signs: 12/27/22 16:08 12/27/22 16:14 Temperature 97 F L Temperature Source Temporal Pulse Rate 92 Respiratory Rate 22 H Respiratory Effort Short of Breath Blood Pressure 127/85 H Blood Pressure Mean 99 Pulse Ox 99 99 Oxygen Delivery Method Room Air Room Air Weight Weight: 77.7 kg Body Mass Index (BMI) 21.9 Physical Exam Const alert and oriented x3 Constitutional Narrative: Young male, laying in bed in dark room, appears moderately fatigued, otherwise conversing normally and in no acute distress. General Appearance: cooperative and comfortable HEENT normocephalic, head/scalp atraumatic, hearing grossly normal bilaterally, nasal mucous membranes and turbinates normal and moist oral mucous membranes Eyes PERRL, EOMs intact bilaterally and conjunctivae normal Neck full ROM, no lymphadenopathy and supple Lymph Lymphatic: no lymphadenopathy noted Chest inspection of chest normal Resp normal respiratory effort, normal air movement, no use of accessory muscles and clear to auscultation bilaterally Cardio regular rate, regular rhythm, no murmurs and peripheral pulses 2+ throughout GI normal to inspection, nondistended, normoactive bowel sounds, soft to palpation, non-tender and non- distended Back/Spine normal ROM Extremity normal to inspection, full ROM and no pedal edema Skin no rashes or lesions noted Psych mental status grossly normal Results Lab / Micro Data 12/27/22 16:30 12/27/22 16:30 Labs: Laboratory Results - last 24 hr 12/27/22 16:30: WBC 17.0 H, RB (more content not included)... Normal [facility] HIV - WCHon 12-27-2022 HIV Non-Reactive Normal Nonreactive [facility] Comment on above: Performed By: #### L 501.3620, L100.0100, L500.2500 #### [facility] [address] [place], [address] Spine Cervical without Contr ason 12-27-2022 Spine Cervical without Contras [facility] [address] [place] [address] Spine Cervical without Contras MR#: [id number] Acct: [id number] Name: BRYAN LUNDBERG Rep #: [id number] : 1995 M 27 From: [place] mat[place] MD PCP: EVELYN Phan Status: REG ER Study: Spine Cervical without Contras Date of Exam: Exam# [id number] Ordering Dr: [place] [id number] INDICATION: trauma EXAMINATION: CT CERVICAL SPINE - CT Spine Cervical W/O Contrast Injection TECHNIQUE: Helically acquired images were obtained of the cervical spine. 2D reformatted images were reviewed. A radiation dose optimization technique was used for this scan. IV Contrast dosage and agent: None. COMPARISON: None. FINDINGS: VERTEBRAE: No fracture or traumatic subluxation. No discrete lytic or blastic abnormality. Normal alignment. Normal craniocervical junction and cervicothoracic junction. DISCS and SPINAL CANAL: Disc heights are preserved. No critical stenosis. NECK SOFT TISSUES: No prevertebral soft tissue swelling. There is no cervical adenopathy. LUNG APICES: Clear. CT/Spine Cervical without Contras IMPRESSION: No evidence of acute cervical spinal fracture or spondylolisthesis. Electronically Signed: Los Casiano MD at 17:41 EDT , CC: Dr. Cecilio Acosta DO; EVELYN Phan Edge Baster: Signed Normal [facility] Urinalysis, Completeon 12-27 Mucus Ql (Urine sed) 1+ /hpf Normal [facility] Comment on above: Order Comment: CLEAN CATCH Performed By: #### L 500.4050, L100.0100 #### [facility] [address] [place], [place], [address] BACTERIA 1+ /hpf Normal None Seen [facility] Comment on above: Order Comment: CLEAN CATCH Performed By: #### L 500.4050, L100.0100 #### [facility] [address] [place], [address] CA OX CRYSTAL 2+ /hpf Normal [facility] Comment on above: Order Comment: CLEAN CATCH Performed By: #### L 500.4050, L100.0100 #### [facility] [address] [place], [address] EPI,SQUAMOUS 0 SEEN Normal 0-5 [facility] Comment on above: Order Comment: CLEAN CATCH Performed By: #### L 500.4050, L100.0100 #### [facility] [address] [place], [address] RBC 0 SEEN Normal 0-5 [facility] Comment on above: Order Comment: CLEAN CATCH Performed By: #### L 500.4050, L100.0100 #### [facility] [address] [place], [address] WBC 0 SEEN Normal 0-5 [facility] Comment on above: Order Comment: CLEAN CATCH Performed By: #### L 500.4050, L100.0100 #### [facility] [address] [place], [address] Urine Drug Screen (VISTA)on 12-27-2022 AMPHETAMINES Negative Normal <1000 ng/mL [facility] Comment on above: Performed By: #### L 501.3620, L100.0100, L500.2500 #### [facility] [address] [place], [address] BARBITIURATES Negative Normal < 200 ng/mL [facility] Comment on above: Performed By: #### L 501.3620, L100.0100, L500.2500 #### [facility] [address] [place], [address] BENZODIAZIPINE Negative Normal < 200 ng/mL [facility] Comment on above: Performed By: #### L 501.3620, L100.0100, L500.2500 #### [facility] [address] [place], [address] COCAINE Negative Normal < 300 ng/mL [facility] Comment on above: Performed By: #### L 501.3620, L100.0100, L500.2500 #### [facility] [address] [place], [address] ECSTACY Positive Abnormal < 500 ng/mL [facility] Comment on above: Performed By: #### L 501.3620, L100.0100, L500.2500 #### [facility] [address] [place], [address] METHADONE Negative Normal < 300 ng/mL [facility] Comment on above: Performed By: #### L 501.3620, L100.0100, L500.2500 #### [facility] [address] [place], [address] OPIATES Negative Normal < 300 ng/mL [facility] Comment on above: Performed By: #### L 501.3620, L100.0100, L500.2500 #### [facility] [address] [place], [address] PCP Negative Normal < 25 ng/mL [facility] Comment on above: Performed By: #### L 501.3620, L100.0100, L500.2500 #### [facility] [address] [place], [address] THC Positive Abnormal < 50 ng/mL [facility] Comment on above: Performed By: #### L 501.3620, L100.0100, L500.2500 #### [facility] [address] [place], [address] VISTA UDS PH 5 Normal [facility] Comment on above: Performed By: #### L 501.3620, L100.0100, L500.2500 #### [facility] [address] [place], [address] CNOVon 11-04-2022 CNOV Office Visit (FAMPWS ) BRYAN LUNDBERG ([id number]) 1995 Date Time Provider Department 11/04/22 1:40 PM [facility] During your visit today, we recorded the following information about you: Pulse Respiration Blood pressure Weight 98/minute 18/minute 132/68 79.8 kg Stacy Nicholson PA-C 11/04/2022 8:27 PM Signed 27 year old male with c/o here for follow up States self medicating, not working., States medicating for anxiety and lack of sleep. Anxiety goes through the roof. Has been attending outpatient, facility: [facility]. Not doing suboxone. Can't manage himself for very long without using. Feels he is destroying relationships and seperating his parents and family. Asking to reinstate trazodone and hydroxyzine. HISTORIES FAMILY HISTORY Problem Relation Age of Onset None Mother None Father Hypertension Maternal Grandmother Diabetes Paternal Grandfather other (hemophilia) Brother PAST MEDICAL HISTORY Diagnosis Date PMH - PAST MEDICAL HISTORY OF 12/22 normal color vision PMH - PAST MEDICAL HISTORY OF varicella Routine or ritual circumcision Unspecified asthma(493.90) seasonal PAST SURGICAL HISTORY Procedure Laterality Date ADENOIDECTOMY PRIMARY CIRCUMCISION W/CLAMP/OTH DEV W/BLOCK TONSILLECTOMY PRIMARY/SECONDARY TYMPANOSTOMY LOCAL/TOPICAL ANESTHESIA Social History Tobacco Use Smoking status: Never Smokeless tobacco: Never Tobacco comments: vapes Vaping Use Vaping Use: current everyday user Substances: Nicotine Substance Use Topics Alcohol use: No Drug use: No ACTIVE PROBLEM LIST Foot and Toe(s), Superficial Foreign Body (Splinter), Without Major Open Wound, Infected Cellulitis and Abscess of Foot, Except Toes Concussion With Loss of Consciousness of 30 Minutes Or Less Mild Intermittent Asthma Allergic Rhinitis Herpetic Lesions of Face Generalized Anxiety Disorder Heroin Abuse ([facility]) Current Outpatient Medications Medication Sig Dispense Refill albuterol HFA (PROVENTIL HFA, VENTOLIN HFA) 90 mcg/actuation inhaler Inhale 2 puffs with spacer as needed 18 g 1 buprenorphine-naloxone (SUBOXONE) 8-2 mg film Dissolve 1 Film under the tongue twice daily. (Patient not taking: Reported on 11/04/2022) traZODone (DESYREL) 100 mg tablet Take 1 tablet by mouth daily at bedtime. (Patient not taking: Reported on 11/04/2022) 90 tablet 1 No current facility-administered medications for this visit. PNEUMOCOCCAL(1 - PCV) due on 10/15/2001 SPIROMETRY Never done DTAP,TDAP,TD(4 - Td or Tdap) due on 08/26/2017 DEPRESSION ASSESSMENT Never done ANNUAL PCP TEAM CHRONIC DISEASE VISIT due on 06/28/2022 EXAM: BP 132/68 Pulse 98 Resp 18 Wt 79.8 kg (176 lb) SpO2 96% BMI 22.60 kg/m? Pleasant well appearing young man in no acute distress. Alert and oriented all spheres. Normal affect and cognition. Speech normal. No deficits to learning or comprehension. Skin warm, dry, pink to lips and nailbeds. Normal turgor. No track duke noted. Respirations regular and unlabored. HEENT: NCAT. No scleral icterus or conjunctival injection. TM's clear. Nose and oropharynx free from injection or lesion. Oral membranes moist and pink. No cervical lymph nodes. Thyroid non-tender, no masses, or enlargement. Carotids pulses 2+/4+ without bruits. No JVD with HOB at 30 degrees. Chest is normal shape. Lungs are clear to all valadez with good air exchange through out. HRRR without murmur or gallop. No lifts, heaves, or rubs. Extrem: no clubbing or cyanosis. Edema: none. Extremities are warm and pink with prompt capillary refill. ASSESSMENT/PLAN: 1. Heroin abuse (HCC) - ICD9: 305.50, ICD10: F11.10 (primary diagnosis) 15 minute discussion on facts of heroin addiction, patterns of abuse, effects on family, effective treatment programs which do not allow enabling or dependency. Strongly recommend Naltrexone injections. Patient given [facility] center information and he agrees this is likely the best solution. They take walk ins: can go right now. 2. Generalized anxiety disorder - ICD9: 300.02, ICD10: F41.1 Resume meds. Cautioned on overuse of meds: if misused will stop prescribing completely. F/u as needed and in 3 months. May contact me through tania Nicholson PA-C Some of this note may have been copied and pasted for the purpose of history context and comparison. Allergies As of Date: 11/04/2022 Noted Allergy Reaction AUGMENTIN (AMOXICILLIN-POT CLAVUL*07/08/2005 2 - Rash environmental [Other] 08/27/2007 3 - Cough Comments: dust, change in air temperature Date Reviewed: 11/04/2022 Reviewed by: Deidra Gamble Ma - Fully Assessed Reason for Visit: Anxiety [9] Primary Visit Diagnosis:Heroin abuse (HCC) [F11.10] Other Visit Diagnosis:Generalized anxiety disorder [F41.1] Order(s):traZODone (DESYREL) 100 mg tabletTake 1 tablet (more content not included)... Normal [facility] Discharge Instructionon 08-23 Discharge Instruction [facility] Medical Records Department [address] [place] [address] Instructions for Home/Discharge Instructions 09/17/22 1042 MR#: [id number] Acct: [id number] Name: BRYAN LUNDBERG Rep #: [id number] : 1995 26 From: Arnol Somers DO PCP: EVELYN Phan Status:ADM IN Discharge Instructions Diet Discharge Diet: No restrictions Activity Discharge Activity: Return to Normal Activity Weight Bearing Status: Full weight bearing Follow Up Care Test Results: Test results from this visit will be discussed in further detail at your follow-up appointment, if applicable. Discharge Plan Admission Admit Date/Time: 09/15/22 00:04 Primary Reason for Your Visit: Opiate detox Attending Provider: Arnol Somers Primary Care Provider: Stacy Nicholson Consulting Providers: Xander Olivera Instructions Additional Instructions / Restrictions: Follow-up with [facility] today Discharge Orders/Prescriptions Prescriptions: Continued trazodone 100 mg tablet 100 mg PO QHS PRN PRN (Reason: sleep]) Label Comments: TAKE 1 TABLET BY MOUTH ONCE DAILY AT BEDTIME Referrals / Follow Up: Stacy Nicholson PA [Primary Care Provider] - Disposition Disposition (needs filled in before D/C Order can be placed): Home, Self Care 09/17/22 1045 Arnol Somers DO CC: EVELYN Nicholson; Dr. Xander Olivera MD Signed Normal [facility] Basic Metabolic Profile (BMP )on 09-16-2022 BUN/CRE 17.4 RATIO Normal 10-20 [facility] Comment on above: Performed By: #### L 501.9100, L505.5000 #### [facility] [address] [place], [address] CA,Total 8.8 mg/dL Normal 8.5-10.1 [facility] Comment on above: Performed By: #### L 501.9100, L505.5000 #### [facility] [address] [place], [address] Chloride [Moles/Vol] 100 mmol/L Normal 98-107 [facility] Comment on above: Performed By: #### L 501.9100, L505.5000 #### [facility] [address] [place], [address] CO2 [Moles/Vol] 25.0 mmol/L Normal 21.0-32.0 [facility] Comment on above: Performed By: #### L 501.9100, L505.5000 #### [facility] [address] [place], [address] Creatinine [Mass/Vol] 1.09 mg/dL Normal 0.70-1.30 [facility] Comment on above: Result Comment: The validity of the calculated GFR GFRAA in patients over 70 years has not been determined. Clinical correlation is essential. Performed By: #### L 501.9100, L505.5000 #### [facility] [address] [place], [address] ECRCL 110.69 ml/min Normal [facility] Comment on above: Performed By: #### L 501.9100, L505.5000 #### [facility] [address] [place], [address] EST GFR - AA 104 mL/min Normal >60 [facility] Comment on above: Result Comment: Afri can Citizen Of [place] GFR Calc Performed By: #### L 501.9100, L505.5000 #### [facility] [address] [place], [address] GAP 7 Normal 5-15 [facility] Comment on above: Performed By: #### L 501.9100, L505.5000 #### [facility] [address] [place], [address] GFR/1.73 sq M.predicted among non-blacks MDRD (S/P/Bld) [Vol rate/Area] 86 mL/min/{1.73_m2} Normal >60 [facility] Comment on above: Result Comment: Non- GFR Calc Performed By: #### L 501.9100, L505.5000 #### [facility] [address] [place], [address] Glucose [Mass/Vol] 115 mg/dL High 74-106 [facility] Comment on above: Result Comment: Fast ing Glucose result from 100 to 125 mg/dL suggests IMPAIRED HOMEOSTASIS per A.D.A. criteria. Performed By: #### L 501.9100, L505.5000 #### [facility] [address] [place], [address] Potassium [Moles/Vol] 3.2 mmol/L Low 3.5-5.1 [facility] Comment on above: Performed By: #### L 501.9100, L505.5000 #### [facility] [address] [place], [address] Sodium [Moles/Vol] 132 mmol/L Low 136-145 [facility] Comment on above: Performed By: #### L 501.9100, L505.5000 #### [facility] [address] [place], [address] Urea nitrogen [Mass/Vol] 19 mg/dL High 7-18 [facility] Comment on above: Performed By: #### L 501.9100, L505.5000 #### [facility] [address] [place], [address] Basophil percentageOrdered B y: Dr. Somers on 09-16-2022 Chloride [Moles/Vol] 100 mmol/L 98-107 [facility] Glucose [Mass/Vol] 115 mg/dL 74-106 [facility] Comment on above: Fasting Glucose resu lt from 100 to 125 mg/dL suggests IMPAIRED HOMEOSTASIS per A.D.A. criteria. Potassium [Moles/Vol] 3.2 mmol/L 3.5-5.1 [facility] Sodium [Moles/Vol] 132 mmol/L 136-145 [facility] Laboratory - Chemistry and C hemistry - challengeOrdered By: Dr. Somers on 09-16-2022 CO2 [Moles/Vol] 25.0 mmol/L 21.0-32.0 [facility] Urea nitrogen/Creatinine [Mass ratio] 17.4 mg/mg 10-20 [facility] No Panel InformationOrdered By: Dr. Somers on 09-16-2022 Estimated Creatinine Clearance Calc 110.69 ml/min [facility] Estimated GFR (MDRD) Amer 104 mL/min >60 [facility] Comment on above: GFR Calc Estimated GFR (MDRD) Non-Af Amer 86 mL/min >60 [facility] Comment on above: Non- GFR Calc Serum or plasma calcium maritza urement (mass/volume)Ordered By: Dr. Somers on 09-16-2022 Calcium [Mass/Vol] 8.8 mg/dL 8.5-10.1 [facility] Serum or plasma creatinine m easurement (mass/volume)Ordered By: Dr. Somers on 09-16-2022 Creatinine [Mass/Vol] 1.09 mg/dL 0.70-1.30 [facility] Comment on above: The validity of the calculated GFR & GFRAA in patients over 70 years has not been determined. Clinical correlation is essential. Serum or plasma urea nitroge n measurement (mass/volume)Ordered By: Dr. Somers on 09-16-2022 Urea nitrogen [Mass/Vol] 19 mg/dL 10-08 [facility] Thin prep Papanicolaou smear with manual screeningOrdered By: Dr. Somers on 09-16-2022 Thin prep Papanicolaou smear with manual screening 08-05 [facility] Alcohol, Blood (Medical)-Ser umon 09-15-2022 SERUM ETOH < 3.0 Normal [facility] Comment on above: Result Comment: The serum:whole blood ethanol ratio is approximately 1.14 and varies slightly with hematocrit. Medical Alcohol reference interval and critical value in non-tolerant individuals; 50 - 100 Impairment 100 Intoxication 100 - 250 Severe Poisoning 250 - 400 Deep/possible fatal coma Performed By: #### L 501.9100, L505.5000 #### [facility] [address] [place], [address] CBC W/Diff, Automatedon 08-23 Absolute Lymph 1.77 X10 3/uL Normal 0.83-4.51 [facility] Comment on above: Performed By: #### L 501.9100, L505.5000 #### [facility] [address] [place], [address] Absolute Neut 9.7 X10 3/uL High 2.0-7.7 [facility] Comment on above: Performed By: #### L 501.9100, L505.5000 #### [facility] [address] [place], [address] Basophils/100 WBC (Bld) 0.2 % Normal 0-1 [facility] Comment on above: Performed By: #### L 501.9100, L505.5000 #### [facility] [address] [place], [address] Eosinophils/100 WBC (Bld) 0.1 % Normal 0-5 [facility] Comment on above: Performed By: #### L 501.9100, L505.5000 #### [facility] [address] [place], [address] Erythrocyte distribution width (RBC) [Ratio] 11.9 % Normal 11.6-14.6 [facility] Comment on above: Performed By: #### L 501.9100, L505.5000 #### [facility] [address] [place], [address] Hematocrit (Bld) [Volume fraction] 48.6 % Normal 40-54 [facility] Comment on above: Performed By: #### L 501.9100, L505.5000 #### [facility] [address] [place], [address] Hemoglobin (Bld) [Mass/Vol] 17.3 g/dL High 13.0-16.5 [facility] Comment on above: Performed By: #### L 501.9100, L505.5000 #### [facility] [address] [place], [address] IG% 0.400 Normal 0.0-0.9 [facility] Comment on above: Result Comment: IG% - Immature Granulocytes (promyelocytes, myelocytes and metamyelocytes) > 1% indicates that a LEFT SHIFT is Present. Performed By: #### L 501.9100, L505.5000 #### [facility] [address] [place], [address] Lymphocytes/100 WBC (Bld) 14.1 % Low 19-41 [facility] Comment on above: Performed By: #### L 501.9100, L505.5000 #### [facility] [address] [place], [address] MCH (RBC) [Entitic mass] 27.8 pg Normal 27.0-32.0 [facility] Comment on above: Performed By: #### L 501.9100, L505.5000 #### [facility] [address] [place], [address] MCHC (RBC) [Mass/Vol] 35.6 g/dL Normal 32-36 [facility] Comment on above: Performed By: #### L 501.9100, L505.5000 #### [facility] [address] [place], [address] MCV (RBC) [Entitic vol] 78.0 fL Low 80-94 [facility] Comment on above: Performed By: #### L 501.9100, L505.5000 #### [facility] [address] [place], [address] Monocytes/100 WBC (Bld) 8.1 % Normal 0-10 [facility] Comment on above: Performed By: #### L 501.9100, L505.5000 #### [facility] [address] [place], [address] Neutrophils/100 WBC (Bld) 77.1 % High 47-70 [facility] Comment on above: Performed By: #### L 501.9100, L505.5000 #### [facility] [address] [place], [address] Nucleated RBC (Bld) [#/Vol] 0 10*3/uL Normal 0-5 [facility] Comment on above: Performed By: #### L 501.9100, L505.5000 #### [facility] [address] [place], [address] Platelet mean volume (Bld) [Entitic vol] 9.5 fL Normal 6.2-12.0 [facility] Comment on above: Performed By: #### L 501.9100, L505.5000 #### [facility] [address] [place], [address] Platelets (Bld) [#/Vol] 345 10*3/uL Normal 150-450 [facility] Comment on above: Performed By: #### L 501.9100, L505.5000 #### [facility] [address] [place], [address] RBC (Bld) [#/Vol] 6.23 10*6/uL High 4.6-6.2 [facility] Comment on above: Performed By: #### L 501.9100, L505.5000 #### [facility] [address] [place], [address] RDW SD 33.5 fl Low 35.1-43.9 [facility] Comment on above: Performed By: #### L 501.9100, L505.5000 #### [facility] [address] [place], [address] WBC (Bld) [#/Vol] 12.6 10*3/uL High 4.4-11.0 [facility] Comment on above: Performed By: #### L 501.9100, L505.5000 #### [facility] [address] [place], [address] Comprehensive Metabolic Prof [facility] 09-15-2022 Albumin [Mass/Vol] 4.7 g/dL Normal 3.2-5.0 [facility] Comment on above: Performed By: #### L 501.9100, L505.5000 #### [facility] [address] [place], [address] Albumin/Globulin [Mass ratio] 1.1 {ratio} Normal 0.9-2.4 [facility] Comment on above: Performed By: #### L 501.9100, L505.5000 #### [facility] [address] [place], [address] ALK P 121 U/L High 45-117 [facility] Comment on above: Performed By: #### L 501.9100, L505.5000 #### [facility] [address] [place], [address] ALT [Catalytic activity/Vol] 29 U/L Normal 16-61 [facility] Comment on above: Performed By: #### L 501.9100, L505.5000 #### [facility] [address] [place], [address] AST [Catalytic activity/Vol] 26 U/L Normal 15-37 [facility] Comment on above: Performed By: #### L 501.9100, L505.5000 #### [facility] [address] [place], [address] Bilirubin [Mass/Vol] 1.10 mg/dL High 0.20-1.00 [facility] Comment on above: Result Comment: For patients on eltrombopag therapy, use of Dimension [place] TBIL is not recommended. Performed By: #### L 501.9100, L505.5000 #### [facility] [address] [place], [address] BUN/CRE 19.3 RATIO Normal 10-20 [facility] Comment on above: Performed By: #### L 501.9100, L505.5000 #### [facility] [address] [place], [address] CA,Total 9.9 mg/dL Normal 8.5-10.1 [facility] Comment on above: Performed By: #### L 501.9100, L505.5000 #### [facility] [address] [place], [address] Chloride [Moles/Vol] 92 mmol/L Low 98-107 [facility] Comment on above: Performed By: #### L 501.9100, L505.5000 #### [facility] [address] [place], [address] CO2 [Moles/Vol] 26.0 mmol/L Normal 21.0-32.0 [facility] Comment on above: Performed By: #### L 501.9100, L505.5000 #### [facility] [address] [place], [address] Creatinine [Mass/Vol] 1.14 mg/dL Normal 0.70-1.30 [facility] Comment on above: Result Comment: The validity of the calculated GFR GFRAA in patients over 70 years has not been determined. Clinical correlation is essential. Performed By: #### L 501.9100, L505.5000 #### [facility] [address] [place], [address] ECRCL 105.15 ml/min Normal [facility] Comment on above: Performed By: #### L 501.9100, L505.5000 #### [facility] [address] [place], [address] EST GFR - AA 99 mL/min Normal >60 [facility] Comment on above: Result Comment: Afri can Citizen Of [place] GFR Calc Performed By: #### L 501.9100, L505.5000 #### [facility] [address] [place], [address] GAP 11 Normal 5-15 [facility] Comment on above: Performed By: #### L 501.9100, L505.5000 #### [facility] [address] [place], [address] GFR/1.73 sq M.predicted among non-blacks MDRD (S/P/Bld) [Vol rate/Area] 82 mL/min/{1.73_m2} Normal >60 [facility] Comment on above: Result Comment: Non- GFR Calc Performed By: #### L 501.9100, L505.5000 #### [facility] [address] [place], [address] Globulin (S) [Mass/Vol] 4.2 g/dL Normal 2.2-4.2 [facility] Comment on above: Performed By: #### L 501.9100, L505.5000 #### [facility] [address] [place], [address] Glucose [Mass/Vol] 115 mg/dL High 74-106 [facility] Comment on above: Result Comment: Fast ing Glucose result from 100 to 125 mg/dL suggests IMPAIRED HOMEOSTASIS per A.D.A. criteria. Performed By: #### L 501.9100, L505.5000 #### [facility] [address] [place], [address] Potassium [Moles/Vol] 3.3 mmol/L Low 3.5-5.1 [facility] Comment on above: Performed By: #### L 501.9100, L505.5000 #### [facility] [address] [place], [address] Sodium [Moles/Vol] 129 mmol/L Low 136-145 [facility] Comment on above: Performed By: #### L 501.9100, L505.5000 #### [facility] [address] [place], [address] T PROT 8.9 g/dL High 6.4-8.2 [facility] Comment on above: Performed By: #### L 501.9100, L505.5000 #### [facility] [address] [place], [address] Urea nitrogen [Mass/Vol] 22 mg/dL High 7-18 [facility] Comment on above: Performed By: #### L 501.9100, L505.5000 #### [facility] [address] [place], [address] Emergency Department Summary on 09-15-2022 Emergency Department Summary [facility] Medical Records Department [address] [place] [address] Emergency Department Summary 09/14/22 MR#: [id number] Acct: [id number] Name: BRYAN LUNDBERG Rep #: [id number] : 1995 26 From: [place] Menendez MD PCP: EVELYN Phan Status:ADM IN Location: RI3 [id number] HPI History of Present Illness Chief Complaint: Substance Abuse Informant: patient Narrative Narrative: Patient presents requesting detox from fentanyl. Patient states he uses about a half a gram sometimes more day of what he thinks is fentanyl. He states he knows that people makes other things in with it but his focus is fentanyl. He snorts it. He has never injected it. He does not drink alcohol. He has gone through detox once and followed up with 180. He stayed clean for about 2 months. He states he is just tired of living life like this and wants to get off of the chemical. Nothing else caused presentation. He has no physical complaints at this time. When he attempts to quit, he gets severe nausea vomiting anxiety and then he gets muscle aches and cramps. His last use was about 5 hours ago now. He tried to detox yesterday on his own. After about 12 hours he started vomiting badly. He used again. He is able to eat and drink and the vomiting is gone now. He has a history of getting severely dehydrated and even had an acute kidney injury once from this dehydration. He does not feel as though he is to that point yet but he does feel somewhat dehydrated. [facility] Medical History Acute opioid withdrawal Asthma Cannabis abuse Polysubstance (including opioids) dependence with physiol dependence Tobacco abuse Home Medications trazodone 100 mg tablet 100 mg PO QHS PRN PRN sleep] 09/14/22 [History Last Taken Unknown] Allergy/AdvReac Type Severity Reaction Status Date / Time amoxicillin trihydrate Allergy Rash Verified 09/14/22 21:41 [From Augmentin] potassium clavulanate Allergy Rash Verified 09/14/22 21:41 [From Augmentin] Family History Brother Hemophilia Father Diabetes Surgical History History of tonsillectomy Social History Smoking Status: Current every day smoker tobacco type: cigarettes alcohol intake: current alcohol intake frequency: holidays/special occasions only substance use type: marijuana, heroin, opiates and other details: Fentanyl ROS ROS ED Constitutional Constitutional ED: Denies chills, fever(s) or subjective Eyes Eyes: Denies change in vision ENT ENT ED: Denies sore throat Cardiovascular Cardiovascular: Denies chest pain or palpitations Respiratory/Chest Respiratory/Chest: Denies cough Gastrointestinal Gastrointestinal: Reports other Details: See history of present illness. ; Denies diarrhea or vomiting Genitourinary Genitourinary ED: Denies urinary frequency Musculoskeletal Musculoskeletal: Denies myalgias Integumentary Denies rash Neurologic Neurologic: Denies headache(s) Psychiatric Psychiatric: Reports anxiety; Denies suicidal ideation or suicidal thoughts Hematologic/Lymphatic Hematologic/Lymphatic: Denies easy bleeding or easy bruising Allergic/Immunologic Allergic/Immunologic ED: Denies urticaria EXAM Physical Exam Narrative Exam Narrative: CONSTITUTIONAL: Patient is nontoxic in appearance. The patient looks comfortable. HEENT: No notable trauma. Mucous membranes do look slightly dry. No sinus tenderness. No indication of pain with swallowing. EYES: No conjunctival injection. No proptosis. CARDIOVASCULAR: Regular rate. Regular rhythm. No notable murmur. No JVD. RESPIRATORY: No respiratory distress. Breathing is unlabored. No wheezes. No rhonchi. No rales. No pain with a deep breath. GASTROINTESTINAL: Not distended. Bowel sounds are normal. No tenderness. No guarding. No rebound. No palpable mass. No bruit. GENITOURINARY: No tenderness over the bladder. No CVA tenderness. MUSCULOSKELETAL: Atraumatic. No peripheral edema. No cord. No tenderness along the deep venous system. No asymmetry. NEUROLOGICAL: Patient is alert and appropriate. No focal deficit noted. SKIN: No noted rashes. No diaphoresis. No track duke are noted consistent with his history. PSYCHIATRIC: Patient is calm. Mood is appropriate. Flight of ideas. Const Vital Signs: 09/14/22 21:41 09/14/22 23:53 Temperature 98.6 F 98.5 F Temperature Source Temporal Oral Pulse Rate 117 H 94 Respiratory Rate 16 16 Blood Pressure 104/89 H 138/91 H Blood Pressure Mean 94 106 Pulse Ox 98 98 Oxygen Delivery Method Room Air MDM MDM MDM Narrative Medical decision making narrative: (more content not included)... Normal [facility] H AND P Exam - Hospitaliston 09-15-2022 H&P Exam - Hospitalist [facility] Medical Records Department [address] [place] [address] H P Exam - Hospitalist 09/14/22 2340 MR#: [id number] Acct: [id number] Name: BRYAN LUNDBERG Rep #: [id number] : 1995 26 From: Xander Olivera MD PCP: EVELYN Phan Status:ADM IN Location: [facility] [id number] HPI - General General Date of Admission: 09/15/22 Date of Service: 09/15/22 Chief Complaint: Desire for detoxification HPI Narrative BRYAN LUNDBERG, is a 26 M with a significant for tobacco abuse and fentanyl abuse who presents to the emergency department with a desire to get detoxification. Patient admits to snorting about half a gram of Fentanyl per day. He began using since he was age 16 years. He has been using on and off as he has been to rehab multiple times. Last time he used was about 2 to 3 hours before presentation. He tried detoxing by himself but had withdrawal symptoms of vomiting, a feeling of something crawling over his body symptoms, and shortness of breath. [facility] Medical History Acute opioid withdrawal Asthma Cannabis abuse Polysubstance (including opioids) dependence with physiol dependence Tobacco abuse Home Medications trazodone 100 mg tablet 100 mg PO QHS PRN PRN sleep] 09/14/22 [History Last Taken Unknown] Allergy/AdvReac Type Severity Reaction Status Date / Time amoxicillin trihydrate Allergy Rash Verified 09/14/22 21:41 [From Augmentin] potassium clavulanate Allergy Rash Verified 09/14/22 21:41 [From Augmentin] Family History Brother Hemophilia Father Diabetes Surgical History History of tonsillectomy Social History Smoking Status: Current every day smoker tobacco type: cigarettes alcohol intake: current alcohol intake frequency: holidays/special occasions only substance use type: marijuana, heroin, opiates and other details: Fentanyl ROS ROS Narrative Pertinent positives and pertinent negatives as noted in HPI. All other systems were reviewed and are negative Vital Signs Vital Signs Vital Signs: 09/14/22 21:41 Temperature 98.6 F Temperature Source Temporal Pulse Rate 117 H Respiratory Rate 16 Blood Pressure 104/89 H Blood Pressure Mean 94 Pulse Ox 98 Weight Weight: 75.705 kg Body Mass Index (BMI) 21.4 Physical Exam Narrative Physical exam: General: Well-nourished, well-developed. Head: Normocephalic, atraumatic, no tenderness Eyes: Vision is grossly intact. EOMI ENT, no trauma, moist mucous membranes, no rhinorrhea Neck: Nontender, No thyromegaly. CVS: Regular rate and rhythm. S1-S2 present. No murmur, gallop or rub. Respiratory : clear to auscultation bilaterally, chest wall nontender Abdomen: Soft, nontender, nondistended, normal bowel sounds, no masses : Deferred Back: Nontender, no CVA tenderness, no midline spinal tenderness, deformities, step-offs Extremities: Nontender full range of motion, no trauma Skin: Normal color, no trauma, abrasions Neuro: Alert, oriented, cranial nerves II through XII grossly intact. Psychiatry: Normal mood. Normal affect. Not depressed. Not anxious. Results Lab / Micro Data Result Diagrams: 09/14/22 22:15 09/14/22 22:15 Labs: Laboratory Results - last 24 hr 09/14/22 22:15: WBC 12.6 H, RBC 6.23 H, Hgb 17.3 H, Hct 48.6, MCV 78.0 L, MCH 27.8, MCHC 35.6, RDW Std Deviation 33.5 L, RDW Coeff of Cecilio 11.9, Plt Count 345, MPV 9.5, Immature Gran % (Auto) 0.400, Neut % (Auto) 77.1 H, Lymph % (Auto) 14.1 L, [place] % (Auto) 8.1, Eos % (Auto) 0.1, Baso % (Auto) 0.2, Absolute Neuts (auto) 9.7 H, Absolute Lymphs (auto) 1.77, Nucleated RBC % 0 09/14/22 22:15: Sodium 129 L, Potassium 3.3 L, Chloride 92 L, Carbon Dioxide 26.0, Anion Gap 11, BUN 22 H, Creatinine 1.14, Estim Creat Clear Calc 105.15, Est GFR (MDRD) Af Amer 99, Est GFR (MDRD) Non- Af 82, BUN/Creatinine Ratio 19.3, Glucose 115 H, Calcium 9.9, Total Bilirubin 1.10 H, AST 26, ALT 29, Alkaline Phosphatase 121 H, Total Protein 8.9 H, Albumin 4.7, Globulin 4.2, Albumin/Globulin Ratio 1.1 09/14/22 22:15: Ethyl Alcohol < 3.0 09/14/22 23:06: Ur Drug Screen Comment Assessment Plan Assessment/Plan (1) Opiate addiction: (2) Desire for detoxification: (3) Tobacco abuse: PLAN: Plan Opioid dependence and withdrawal Patient be started on Subutex and other adjunctive medications: Gabapentin as needed; dicyclomine as needed; Vistaril as needed; methocarbamol as needed; clonidine as needed; Imodium as needed; tra zodone as needed and Zofran as needed. Monitor COWS and CINA score Tobacco abuse Counseled Nicotine patch ordered DVT prophyla (more content not included)... Normal [facility] Urine Drug Screen (VISTA)on 09-15-2022 AMPHETAMINES Positive Abnormal <1000 ng/mL [facility] Comment on above: Performed By: #### L 500.4050, L100.0100 #### [facility] [address] [place], [place], [id number] BARBITIURATES Negative Normal < 200 ng/mL [facility] Comment on above: Performed By: #### L 500.4050, L100.0100 #### [facility] [address] [place], [place], [id number] BENZODIAZIPINE Negative Normal < 200 ng/mL [facility] Comment on above: Performed By: #### L 500.4050, L100.0100 #### [facility] [address] [place], [address] COCAINE Negative Normal < 300 ng/mL [facility] Comment on above: Performed By: #### L 500.4050, L100.0100 #### [facility] [address] [place], [address] ECSTACY Positive Abnormal < 500 ng/mL [facility] Comment on above: Performed By: #### L 500.4050, L100.0100 #### [facility] [address] [place], [address] METHADONE Negative Normal < 300 ng/mL [facility] Comment on above: Performed By: #### L 500.4050, L100.0100 #### [facility] [address] [place], [address] OPIATES Positive Abnormal < 300 ng/mL [facility] Comment on above: Performed By: #### L 500.4050, L100.0100 #### [facility] [address] [place], [address] PCP Negative Normal < 25 ng/mL [facility] Comment on above: Performed By: #### L 500.4050, L100.0100 #### [facility] [address] [place], [address] THC Positive Abnormal < 50 ng/mL [facility] Comment on above: Performed By: #### L 500.4050, L100.0100 #### [facility] [address] [place], [address] VISTA UDS PH 5 Normal [facility] Comment on above: Performed By: #### L 500.4050, L100.0100 #### [facility] [address] [place], [address] Absolute lymphocyte countOrd ered By: Dr. Menendez on 09-14-2022 Lymphocytes Auto (Unsp spec) [#/Vol] 1.77 10*3/uL 0.83-4.51 [facility] Basophil percentageOrdered B y: Dr. Menendez on 09-14-2022 Basophils/100 WBC (Bld) 0.2 % 0-1 [facility] Bilirubin [Mass/Vol] 1.10 mg/dL 0.20-1.00 [facility] Comment on above: For patients on eltr ombopag therapy, use of Dimension [place] TBIL is not recommended. Chloride [Moles/Vol] 92 mmol/L 98-107 [facility] Eosinophils/100 WBC (Bld) 0.1 % 0-5 [facility] Glucose [Mass/Vol] 115 mg/dL 74-106 [facility] Comment on above: Fasting Glucose resu lt from 100 to 125 mg/dL suggests IMPAIRED HOMEOSTASIS per A.D.A. criteria. Neutrophils (Bld) [#/Vol] 9.7 10*3/uL 2.0-7.7 [facility] Neutrophils/100 WBC (Bld) 77.1 % 47-70 [facility] Potassium [Moles/Vol] 3.3 mmol/L 3.5-5.1 [facility] Protein [Mass/Vol] 8.9 g/dL 6.4-8.2 [facility] Sodium [Moles/Vol] 129 mmol/L 136-145 [facility] WBC (Bld) [#/Vol] 12.6 10*3/uL 4.4-11.0 [facility] Blood erythrocytes count (nu mber/volume)Ordered By: Dr. Menendez on 09-14-2022 RBC (Bld) [#/Vol] 6.23 10*6/uL 4.6-6.2 [facility] Blood hemoglobin measurement (mass/volume)Ordered By: Dr. Menendez on 09-14-2022 Hemoglobin (Bld) [Mass/Vol] 17.3 g/dL 13.0-16.5 [facility] Blood lymphocytes/100 leukoc ytesOrdered By: Dr. Menendez on 09-14-2022 Lymphocytes/100 WBC (Bld) 14.1 % 19-41 [facility] Blood monocytes/100 leukocyt esOrdered By: Dr. Menendez on 09-14-2022 Monocytes/100 WBC (Bld) 8.1 % 0-10 [facility] Blood platelet mean volumeOr dered By: Dr. Menendez on 09-14-2022 Platelet mean volume (Bld) [Entitic vol] 9.5 fL 6.2-12.0 [facility] Determination of erythrocyte mean corpuscular volume (MCV)Ordered By: Dr. Menendez on 09-14-2022 MCV (RBC) [Entitic vol] 78.0 fL 80-94 [facility] Hematocrit Auto (Bld) [Volum e fraction]Ordered By: Dr. Menendez on 09-14-2022 Hematocrit (Bld) [Volume fraction] 48.6 % 40-54 [facility] - Chemistry and C hemistry - challengeOrdered By: Dr. Menendez on 09-14-2022 ALP [Catalytic activity/Vol] 121 U/L 45-117 [facility] ALT [Catalytic activity/Vol] 29 U/L 16-61 [facility] CO2 [Moles/Vol] 26.0 mmol/L 21.0-32.0 [facility] Globulin (S) [Mass/Vol] 4.2 g/dL 2.2-4.2 [facility] Urea nitrogen/Creatinine [Mass ratio] 19.3 mg/mg 10-20 [facility] - Drug toxicology Ordered By: Dr. Menendez on 09-14-2022 Amphetamines Ql (U) Positive <1000 ng/mL [facility] Benzodiazepines Ql (U) Negative < 200 ng/mL [facility] Cannabinoids Screen Ql (U) Positive < 50 ng/mL [facility] Cocaine Ql (U) Negative < 300 ng/mL [facility] Opiates Ql (U) Positive < 300 ng/mL [facility] - Hematology and Cell countsOrdered By: Dr. Menendez on 09-14-2022 Erythrocyte distribution width (RBC) [Entitic vol] 33.5 fL 35.1-43.9 [facility] Erythrocyte distribution width (RBC) [Ratio] 11.9 % 11.6-14.6 [facility] Immature granulocytes/100 WBC (Bld) 0.400 % 0.0-0.9 [facility] Comment on above: IG% - Immature Granu locytes (promyelocytes, myelocytes and metamyelocytes) > 1% indicates that a LEFT SHIFT is Present. MCH (RBC) [Entitic mass] 27.8 pg 27.0-32.0 [facility] Nucleated RBC/100 WBC (Bld) [Ratio] 0 % 0-5 [facility] MCHC Auto (RBC) [Mass/Vol]Or dered By: Dr. Menendez on 09-14-2022 MCHC (RBC) [Mass/Vol] 35.6 g/dL 32-36 [facility] No Panel InformationOrdered By: Dr. Menendez on 09-14-2022 MDMA (Ecstasy) Screen Positive < 500 ng/mL [facility] Urine Barbiturates Screen Negative < 200 ng/mL [facility] Urine Drug Screen Comment [facility] Comment on above: CONFIRMATORY TESTING FOR ALL POSITIVE URINE DRUG SCREENRESULTS WILL ONLY BE SENT OUT UPON PHYSICIAN ORDER. VISTA Urine Drug Screen methods provide only preliminaryanalytical test results. A more specific alternate chemicalmethod must be used in order to obtain a confirmedanalytical result. Gas chromatography/mass spectrometery(GC/MS) is the preferred confirmatory method. Clinicalconsideration and professional judgement should be appliedto any drug of abuse test result, particularly whenpreliminary positive results are used. URINE TCA TESTING MUST BE ORDERED SEPARATELY. USE TESTMNEMONIC: [facility] Urine Methadone Screen Negative < 300 ng/mL [facility] Estimated Creatinine Clearance Calc 105.15 ml/min [facility] Estimated GFR (MDRD) Amer 99 mL/min >60 [facility] Comment on above: GFR Calc Estimated GFR (MDRD) Non-Af Amer 82 mL/min >60 [facility] Comment on above: Non- GFR Calc Ethyl Alcohol Level < 3.0 mg/dL [facility] Comment on above: The serum:whole bloo d ethanol ratio is approximately 1.14and varies slightly with hematocrit. Medical Alcohol reference interval and critical value innon-tolerant individuals; 50 - 100 Impairment 100 Intoxication 100 - 250 Severe Poisoning 250 - 400 Deep/possible fatal coma Platelets bldOrdered By: Dr. Menendez on 09-14-2022 Platelets (Bld) [#/Vol] 345 10*3/uL 150-450 [facility] Serum or plasma albumin maritza urement (mass/volume)Ordered By: Dr. Menendez on 09-14-2022 Albumin [Mass/Vol] 4.7 g/dL 3.2-5.0 [facility] Serum or plasma albumin/glob ulin mass ratioOrdered By: Dr. Menendez on 09-14-2022 Albumin/Globulin [Mass ratio] 1.1 {ratio} 0.9-2.4 [facility] Serum or plasma calcium maritza urement (mass/volume)Ordered By: Dr. Menendez on 09-14-2022 Calcium [Mass/Vol] 9.9 mg/dL 8.5-10.1 [facility] Serum or plasma creatinine m easurement (mass/volume)Ordered By: Dr. Menendez on 09-14-2022 Creatinine [Mass/Vol] 1.14 mg/dL 0.70-1.30 [facility] Comment on above: The validity of the calculated GFR & GFRAA in patients over 70 years has not been determined. Clinical correlation is essential. Serum or plasma urea nitroge n measurement (mass/volume)Ordered By: Dr. Menendez on 09-14-2022 Urea nitrogen [Mass/Vol] 22 mg/dL 7-18 [facility] Thin prep Papanicolaou smear with manual screeningOrdered By: Dr. Menendez on 09-14-2022 Thin prep Papanicolaou smear with manual screening 26 U/L 15-37 [facility] Thin prep Papanicolaou smear with manual screening 11 5-15 [facility] Urine phencyclidine (PCP) de tectionOrdered By: Dr. Menendez on 09-14-2022 Phencyclidine Ql (U) Negative < 25 ng/mL [facility] CBC W Auto Differential pane l (Bld)on 05-23-2022 Basophils (Bld) [#/Vol] 10*3/uL Normal <0.11 [facility] Comment on above: Order Comment: Speci men Type: BLOOD SPECIMEN Ordering Facility: [facility] Address: [address] [place], [place] [id number] Performed By: #### 5 7021-8 #### [facility] CLIA [id number] [address] [place] [id number] [place] Basophils/100 WBC (Bld) 0.3 % Normal [facility] Comment on above: Order Comment: Speci men Type: BLOOD SPECIMEN Ordering Facility: [facility] Address: [address] [place] [address] Performed By: #### 5 7021-8 #### [facility] CLIA [id number] [address] [place] [address] [place] Differential cell count method Nom (Bld) Auto Normal [facility] Comment on above: Order Comment: Speci men Type: BLOOD SPECIMEN Ordering Facility: [facility] Address: [address] [place] [address] Performed By: #### 5 7021-8 #### [facility] CLIA [id number] [address] [place] [address] [place] Eosinophils (Bld) [#/Vol] 0.25 10*3/uL Normal <0.46 [facility] Comment on above: Order Comment: Speci men Type: BLOOD SPECIMEN Ordering Facility: [facility] Address: [address] [place] [address] Performed By: #### 5 7021-8 #### [facility] CLIA [id number] [address] [place] [address] [place] Eosinophils/100 WBC (Bld) 3.6 % Normal [facility] Comment on above: Order Comment: Speci men Type: BLOOD SPECIMEN [facility]ing [facility]: [facility] Address: [address] [place] [address] Performed By: #### 5 7021-8 #### [facility] CLIA [id number] [address] [place] [address] [place] Erythrocyte distribution width (RBC) [Ratio] 12.9 % Normal 11.5-15.0 [facility] Comment on above: Order Comment: Speci men Type: BLOOD SPECIMEN [facility]ing [facility]: [facility] Address: [address] [place] [address] Performed By: #### 5 7021-8 #### [facility] CLIA [id number] [address] [place] [address] [place] Hematocrit (Bld) [Volume fraction] 40.1 % Normal 39.0-51.0 [facility] Comment on above: Order Comment: Speci men Type: BLOOD SPECIMEN [facility]ing [facility]: [facility] Address: [address] [place] [address] Performed By: #### 5 7021-8 #### [facility] CLIA [id number] [address] [place] [address] [place] Hemoglobin (Bld) [Mass/Vol] 13.7 g/dL Normal 13.0-17.0 [facility] Comment on above: Order Comment: Speci men Type: BLOOD SPECIMEN Ordering Facility: [facility] Address: [address] [place], [place] [id number] Performed By: #### 5 7021-8 #### [facility] CLIA [id number] [address] [place] [address] [place] Immature granulocytes (Bld) [#/Vol] 10*3/uL Normal <0.10 [facility] Comment on above: Order Comment: Speci men Type: BLOOD SPECIMEN [facility]ing [facility]: [facility] Address: [address] [place], [place] [id number] Performed By: #### 5 7021-8 #### [facility] CLIA [id number] [address] [place] [address] [place] Immature granulocytes/100 WBC (Bld) 0.1 % Normal [facility] Comment on above: Order Comment: Speci men Type: BLOOD SPECIMEN Ordering Facility: [facility] Address: [address] [place] [address] Performed By: #### 5 7021-8 #### [facility] CLIA [id number] [address] [place], [place] [id number] [place] Lymphocytes (Bld) [#/Vol] 2.08 10*3/uL Normal 1.00-4.00 [facility] Comment on above: Order Comment: Speci men Type: BLOOD SPECIMEN Ordering Facility: [facility] [employer] [facility] Address: [address] [place] [address] Performed By: #### 5 7021-8 #### [facility] CLIA [id number] [address] [place] [address] [place] Lymphocytes/100 WBC (Bld) 29.9 % Normal [facility] Comment on above: Order Comment: Speci men Type: BLOOD SPECIMEN Ordering Facility: [facility] Address: [address] [place] [address] Performed By: #### 5 7021-8 #### [facility] CLIA [id number] [address] [place] [address] [place] MCH (RBC) [Entitic mass] 28.7 pg Normal 26.0-34.0 [facility] Comment on above: Order Comment: Speci men Type: BLOOD SPECIMEN Ordering Facility: [facility] [employer] [facility] Address: [address] [place] [address] Performed By: #### 5 7021-8 #### [facility] CLIA [id number] [address] [place] [address] [place] MCHC (RBC) [Mass/Vol] 34.2 g/dL Normal 30.5-36.0 [facility] Comment on above: Order Comment: Speci men Type: BLOOD SPECIMEN Ordering Facility: [facility] [employer] [facility] Address: [address] [place] [address] Performed By: #### 5 7021-8 #### [facility] CLIA [id number] [address] [place] [address] [place] MCV (RBC) [Entitic vol] 83.9 fL Normal 80.0-100.0 [facility] Comment on above: Order Comment: Speci men Type: BLOOD SPECIMEN Ordering Facility: [facility] [employer] [facility] Address: [address] [place] [address] Performed By: #### 5 7021-8 #### [facility] CLIA [id number] [address] [address] [place] Monocytes (Bld) [#/Vol] 0.41 10*3/uL Normal <0.87 [facility] Comment on above: Order Comment: Speci men Type: BLOOD SPECIMEN Ordering Facility: [facility] [employer] [facility] Address: [address] [place] [address] Performed By: #### 5 7021-8 #### [facility] CLIA [id number] [address] [address] [place] Monocytes/100 WBC (Bld) 5.9 % Normal [facility] Comment on above: Order Comment: Speci men Type: BLOOD SPECIMEN Ordering Facility: [facility] Address: [address] [place] [address] Performed By: #### 5 7021-8 #### [facility] CLIA [id number] [address] [place] [id number] [place] Neutrophils (Bld) [#/Vol] 4.19 10*3/uL Normal 1.45-7.50 [facility] Comment on above: Order Comment: Speci men Type: BLOOD SPECIMEN Ordering Facility: [facility] Address: [address] [place] [address] Performed By: #### 5 7021-8 #### [facility] CLIA [id number] [address] [address] [place] Neutrophils/100 WBC (Bld) 60.2 % Normal [facility] Comment on above: Order Comment: Speci men Type: BLOOD SPECIMEN Ordering Facility: [facility] Address: [address] [place] [address] Performed By: #### 5 7021-8 #### [facility] CLIA [id number] [address] [address] [place] Nucleated RBC (Bld) [#/Vol] 10*3/uL Normal <0.01 [facility] Comment on above: Order Comment: Speci men Type: BLOOD SPECIMEN Ordering Facility: [facility] [employer] [facility] Address: [address] [place] [address] Performed By: #### 5 7021-8 #### [facility] CLIA [id number] [address] [place], [place] [address] [place] Nucleated RBC/100 WBC (Bld) [Ratio] 0.0 /100 WBC Normal [facility] Comment on above: Order Comment: Speci men Type: BLOOD SPECIMEN Ordering Facility: [facility] Address: [address] [place] [address] Performed By: #### 5 7021-8 #### [facility] CLIA [id number] [address] [place] [address] [place] Platelet mean volume (Bld) [Entitic vol] 9.0 fL Normal 9.0-12.7 [facility] Comment on above: Order Comment: Speci men Type: BLOOD SPECIMEN Ordering Facility: [facility] Address: [address] [place] [address] Performed By: #### 5 7021-8 #### [facility] CLIA [id number] [address] [place], [place] [address] [place] Platelets (Bld) [#/Vol] 334 10*3/uL Normal 150-400 [facility] Comment on above: Order Comment: Speci men Type: BLOOD SPECIMEN Ordering Facility: [facility] Address: [address] [place] [address] Performed By: #### 5 7021-8 #### [facility] CLIA [id number] [address] [address] [place] RBC (Bld) [#/Vol] 4.78 10*6/uL Normal 4.20-6.00 [facility] Comment on above: Order Comment: Speci men Type: BLOOD SPECIMEN Ordering Facility: [facility] [employer] [facility] Address: [address] [place] [address] Performed By: #### 5 7021-8 #### [facility] CLIA [id number] [address] [address] [place] WBC (Bld) [#/Vol] 6.96 10*3/uL Normal 3.70-11.00 [facility] Comment on above: Order Comment: Speci men Type: BLOOD SPECIMEN [facility] Address: [address] [place] [address] Performed By: #### 5 7021-8 #### [facility] CLIA [id number] [facility] [address] [address] [place] Comprehensive metabolic 2000 panelon 05-23-2022 Albumin [Mass/Vol] 4.5 g/dL Normal 3.9-4.9 [facility] Comment on above: Order Comment: Speci men Type: BLOOD SPECIMEN Ordering Facility: [facility] [employer] [facility] Address: [address] [place] [address] Performed By: #### 3 024-7, 68295-4, 3016-3 #### [facility] CLIA [id number] [address] [place] [address] [place] ALP [Catalytic activity/Vol] 78 U/L Normal 38-113 [facility] Comment on above: Order Comment: Speci men Type: BLOOD SPECIMEN Ordering Facility: [facility] Address: [address] [place] [address] Performed By: #### 3 024-7, 35812-3, 3016-3 #### [facility] CLIA [id number] [facility] [address] [address] [place] ALT [Catalytic activity/Vol] 18 U/L Normal 10-54 [facility] Comment on above: Order Comment: Speci men Type: BLOOD SPECIMEN Ordering Facility: [facility] Address: [address] [place] [address] Performed By: #### 3 024-7, 43291-7, 3016-3 #### [facility] CLIA [id number] [address] [address] [place] Anion gap [Moles/Vol] 8 mmol/L Low 9-18 [facility] Comment on above: Order Comment: Speci men Type: BLOOD SPECIMEN Ordering Facility: [facility] Address: [address] [place] [address] Performed By: #### 3 024-7, 22377-5, 3 #### [facility] CLIA [id number] [address] [place] [address] [place] AST [Catalytic activity/Vol] 23 U/L Normal 14-40 [facility] Comment on above: Order Comment: Speci men Type: BLOOD SPECIMEN Ordering Facility: [facility] Address: [address] [place] [address] Performed By: #### 3 024-7, 92457-6, 3 #### [facility] CLIA [id number] [address] [place] [address] [place] Bilirubin [Mass/Vol] 0.5 mg/dL Normal 0.2-1.3 [facility] Comment on above: Order Comment: Speci men Type: BLOOD SPECIMEN Ordering Facility: [facility] Address: [address] [place] [address] Performed By: #### 3 024-7, 57934-8, 3 #### [facility] CLIA [id number] [address] [address] [place] Calcium [Mass/Vol] 9.9 mg/dL Normal 8.5-10.2 [facility] Comment on above: Order Comment: Speci men Type: BLOOD SPECIMEN Ordering Facility: [facility] Address: [address] [place] [address] Performed By: #### 3 024-7, 81122-5, 3 #### [facility] CLIA [id number] [address] [address] [place] Chloride [Moles/Vol] 105 mmol/L Normal 97-105 [facility] Comment on above: Order Comment: Speci men Type: BLOOD SPECIMEN Ordering Facility: [facility] Address: [address] [place] [address] Performed By: #### 3 024-7, 75799-7, 3016-3 #### [facility] CLIA [id number] [address] [place] [address] [place] CO2 [Moles/Vol] 27 mmol/L Normal 22-30 [facility] Comment on above: Order Comment: Speci men Type: BLOOD SPECIMEN Ordering Facility: [facility] Address: [address] [place], [place] [address] Performed By: #### 3 024-7, 06755-7, 3 #### [facility] CLIA [id number] [address] [place] [address] [place] Creatinine [Mass/Vol] 0.97 mg/dL Normal 0.73-1.22 [facility] Comment on above: Order Comment: Speci men Type: BLOOD SPECIMEN Ordering Facility: [facility] Address: [address] [place] [address] Performed By: #### 3 024-7, 81910-9, 3 #### [facility] CLIA [id number] [address] [place] [address] [place] ESTIMATED GLOMERULAR FILTRATION RATE 110 mL/min/1.73m??? Normal >=60 [facility] Comment on above: Order Comment: Speci men Type: BLOOD SPECIMEN Ordering Facility: [facility] Address: [address] [place], [place] [address] Result Comment: Re mated Glomerular Filtration Rate (eGFR) is calculated using the 2020 CKD-EPI creatinine equation. This equation utilizes serum creatinine, sex, and age as parameters. The creatinine assay has traceable calibration to isotope dilution-mass spectrometry. Refer to KDIGO guidelines for clinical interpretation. In patients with unstable renal function, e.g. those with acute kidney injury, the eGFR may not accurately reflect actual GFR. Performed By: #### 3 024-7, 59598-2, 3016-3 #### [facility] CLIA [id number] [address] [address] [place] Glucose [Mass/Vol] 90 mg/dL Normal 74-99 [facility] Comment on above: Order Comment: Selene castano Type: BLOOD SPECIMEN Ordering Facility: [facility] Address: [address] [place], [place] [address] Result Comment: The [place] Diabetes Association (ADA) provides guidance for cutoff values for fasting glucose and random glucose. The ADA defines fasting as no caloric intake for at least 8 hours. Fasting plasma glucose results between 100 to 125 mg/dL indicate increased risk for diabetes (prediabetes). Fasting plasma glucose results greater than or equal to 126 mg/dL meet the criteria for diagnosis of diabetes. In the absence of unequivocal hyperglycemia, results should be confirmed by repeat testing. In a patient with classic symptoms of hyperglycemia or hyperglycemic crisis, random plasma glucose results greater than or equal to 200 mg/dL meet the criteria for diagnosis of diabetes. Reference: Standards of Medical Care in Diabetes 2016, [place] Diabetes Association. Diabetes Care. 2016.39(Suppl 1). Performed By: #### 3 024-7, 92342-2, 6-3 #### [facility] CLIA [id number] [address] [address] [place] Potassium [Moles/Vol] 4.4 mmol/L Normal 3.7-5.1 [facility] Comment on above: Order Comment: Selene castano Type: BLOOD SPECIMEN Ordering Facility: [facility] Address: [address] [place] [address] Performed By: #### 3 024-7, 29662-4, 6-3 #### [facility] CLIA [id number] [address] [address] [place] Protein [Mass/Vol] 7.2 g/dL Normal 6.3-8.0 [facility] Comment on above: Order Comment: Selene castano Type: BLOOD SPECIMEN Ordering Facility: [facility] Address: [address] [place] [address] Performed By: #### 3 024-7, 61819-0, 6-3 #### [facility] CLIA [id number] [address] [place] [address] [place] Sodium [Moles/Vol] 140 mmol/L Normal 136-144 [facility] Comment on above: Order Comment: Selene castano Type: BLOOD SPECIMEN Ordering Facility: [facility] [employer] [facility] Address: [address] [place] [address] Performed By: #### 3 024-7, 85735-2, 3016-3 #### [facility] CLIA [id number] [address] [place] [address] [place] Urea nitrogen [Mass/Vol] 21 mg/dL Normal 9-24 [facility] Comment on above: Order Comment: Selene castano Type: BLOOD SPECIMEN Ordering Facility: [facility] [employer] [facility] Address: [address] [place] [address] Performed By: #### 3 024-7, 35457-7, 3016-3 #### [facility] CLIA [id number] [address] [place] [address] [place] HAV IgM Ser Qlon 05-23-2022 HAV IgM Ql (S) Negative Normal Negative [facility] Comment on above: Order Comment: Selene castano Type: BLOOD SPECIMEN Ordering Facility: [facility] Address: [address] [place] [address] Result Comment: No e vidence of recent infection with Hepatitis A virus. Performed By: #### 5 195-3, 70478-4, 03648-6, 99502-2 #### [facility] CLIA [id number] [address] [place] [address] [place] HBV surface Ab Ql (S)on HBV surface Ab Qn (S) <8.00 Low >=12.00 [facility] Comment on above: Order Comment: Selene castano Type: BLOOD SPECIMEN Ordering Facility: [facility] Address: [address] [place], [place] [address] Performed By: #### 5 195-3, 97000-9, 44664-4, 83957-4 #### [facility] CLIA [id number] [facility] [place] [address] [place] HBV surface Ab Ser Qlon 0 HBV surface Ab Ql (S) Negative Abnormal Positive [facility] Comment on above: Order Comment: Selene eyad Type: BLOOD SPECIMEN Ordering Facility: [facility] Address: [address] [place] [address] Result Comment: No e vidence of antibodies to Hepatitis B surface antigen. Performed By: #### 5 195-3, 23255-4, 74432-2, 87962-0 #### [facility] CLIA [id number] [address] [place] [address] [place] HBV surface Ag Ser Qlon 03- HBV surface Ag Ql (S) Negative Normal Negative [facility] Comment on above: Order Comment: [facility] Type: BLOOD SPECIMEN Ordering Facility: [facility] Address: [address] [place] [address] Performed By: #### 5 195-3, 64010-1, 95435-0, 33407-6 #### [facility] CLIA [id number] [address] [place] [address] [place] HCV Ab Ser Qlon 05-23-2022 HCV Ab Ql (S) Negative Normal Negative [facility] Comment on above: Order Comment: [facility]hel[facility] Type: BLOOD SPECIMENOrdering Facility: [facility] Address: [address] [place] [address] Result Comment: The result suggests no evidence of active infection with Hepatitis C virus. Should recent infection be suspected, repeat testing may be considered 4-6 weeks after this draw. Performed By: #### 1 6128-1 ####[facility] [id number] [place] [address] [place] HCV RNA SerPl LUNA+probe-[facility] on 05-23-2022 HCV RNA LUNA+probe Qn Not detected Normal HCV RNA not detected by PCR. [facility] Comment on above: Order Comment: [facility] Type: BLOOD SPECIMENOrdering Facility: [facility] Address: [address] [place] [address] Performed By: #### 1 1011-4 ####[facility] [id number] [place] [address] [facility] [place] HIV 1+2 Ab IA Qlon 3 HIV 1 and 2 Ab IA.rapid Nom Normal [facility] Comment on above: Order Comment: Speci men Type: BLOOD SPECIMEN Ordering Facility: [facility] Address: [address] [place] [address] Result Comment: Test not indicated. Performed By: #### 5 195-3, 60140-1, 15310-9, 12577-1 #### [facility] CLIA [id number] [address] [place] HIV 1+2 Ab+HIV1 p24 Ag IA Ql Non-Reactive Normal Nonreactive [facility] Comment on above: Order Comment: Speci men Type: BLOOD SPECIMEN Ordering Facility: [facility] Address: [address] [place] [address] Performed By: #### 5 195-3, 22610-1, 59959-8, 95430-6 #### [facility] CLIA [id number] [address] [place] [address] OF [place] HIVINT Normal [facility] Comment on above: Order Comment: Speci men Type: BLOOD SPECIMEN Ordering Facility: [facility] Address: [address] [place] [address] Result Comment: No e vidence of HIV-1 or HIV-2 infection. Should recent infection be suspected, repeat testing may be considered 2-3 weeks after this draw. [facility] Rev. Code 3701.243(E): This information has been disclosed to you from confidential records protected from disclosure by state law. ???You shall make no further disclosure of this information without the specific, written, and informed release of the individual to whom it pertains or as otherwise permitted by state law. A general authorization for the release of medical or other information is not sufficient for the purpose of the release of HIV test results or diagnoses. Performed By: #### 5 195-3, 81984-1, 23786-0, 21333-7 #### [facility] CLIA [id number] [address] [place] [address] [place] T4 Free SerPl-mCncon 023 Free T4 [Mass/Vol] 1.4 ng/dL Normal 0.9-1.7 [facility] Comment on above: Order Comment: Speci men Type: BLOOD SPECIMENOrdering Facility: [facility] Address: [address] [place] [address] Performed By: #### 3 024-7, 57457-8, 3016-3 ####[facility] [id number] [place] [address] [place] TSH SerPl-aCncon 05-23-2022 TSH Qn 0.405 m[IU]/L Normal 0.270-4.200 [facility] Comment on above: Order Comment: Speci men Type: BLOOD SPECIMENOrdering Facility: [facility] Address: [address] [place] [address] Performed By: #### 3 024-7, 83393-0, 3016-3 ####[facility] [id number] [place] [address] [place] Alcohol, Blood (Medical)-Ser umon 05-02-2022 SERUM ETOH < 3.0 Normal [facility] Comment on above: Result Comment: The serum:whole blood ethanol ratio is approximately 1.14 and varies slightly with hematocrit. Medical Alcohol reference interval and critical value in non-tolerant individuals; 50 - 100 Impairment 100 Intoxication 100 - 250 Severe Poisoning 250 - 400 Deep/possible fatal coma Performed By: #### L 501.3620, L100.0100, L500.2500 #### [facility] [address] [place], [place], [address] Basic Metabolic Profile (BMP )on 05-02-2022 BUN/CRE 26.4 RATIO High 10-20 [facility] Comment on above: Performed By: #### L 501.3620, L100.0100, L500.2500 #### [facility] [address] [place], [address] CA,Total 7.8 mg/dL Low 8.5-10.1 [facility] Comment on above: Performed By: #### L 501.3620, L100.0100, L500.2500 #### [facility] [address] [place], [address] Chloride [Moles/Vol] 114 mmol/L High 98-107 [facility] Comment on above: Performed By: #### L 501.3620, L100.0100, L500.2500 #### [facility] [address] [place], [address] CO2 [Moles/Vol] 27.0 mmol/L Normal 21.0-32.0 [facility] Comment on above: Performed By: #### L 501.3620, L100.0100, L500.2500 #### [facility] [address] [place], [address] Creatinine [Mass/Vol] 1.29 mg/dL Normal 0.70-1.30 [facility] Comment on above: Result Comment: The validity of the calculated GFR GFRAA in patients over 70 years has not been determined. Clinical correlation is essential. Performed By: #### L 501.3620, L100.0100, L500.2500 #### [facility] [address] [place], [address] ECRCL 91.86 ml/min Normal [facility] Comment on above: Performed By: #### L 501.3620, L100.0100, L500.2500 #### [facility] [address] [place], [address] EST GFR - AA 86 mL/min Normal >60 [facility] Comment on above: Result Comment: Afri can Citizen [place] GFR Calc Performed By: #### L 501.3620, L100.0100, L500.2500 #### [facility] [address] [place], [address] GAP 4 Low 5-15 [facility] Comment on above: Performed By: #### L 501.3620, L100.0100, L500.2500 #### [facility] [address] [place], [address] GFR/1.73 sq M.predicted among non-blacks MDRD (S/P/Bld) [Vol rate/Area] 71 mL/min/{1.73_m2} Normal >60 [facility] Comment on above: Result Comment: Non- GFR Calc Performed By: #### L 501.3620, L100.0100, L500.2500 #### [facility] [address] [place], [address] Glucose [Mass/Vol] 104 mg/dL Normal 74-106 [facility] Comment on above: Result Comment: Fast ing Glucose result from 100 to 125 mg/dL suggests IMPAIRED HOMEOSTASIS per A.D.A. criteria. Performed By: #### L 501.3620, L100.0100, L500.2500 #### [facility] [address] [place], [address] Potassium [Moles/Vol] 4.0 mmol/L Normal 3.5-5.1 [facility] Comment on above: Performed By: #### L 501.3620, L100.0100, L500.2500 #### [facility] [address] [place], [address] Sodium [Moles/Vol] 145 mmol/L Normal 136-145 [facility] Comment on above: Performed By: #### L 501.3620, L100.0100, L500.2500 #### [facility] [address] [place], [address] Urea nitrogen [Mass/Vol] 34 mg/dL High 7-18 [facility] Comment on above: Performed By: #### L 501.3620, L100.0100, L500.2500 #### [facility] [address] [place], [address] CBC W/Diff, Automatedon 02-0 PATH [facility] Reviewed [facility] Comment on above: Result Comment: Neut rophilic leukocytosis. Clinical correlation necessary. Oliverio Gibbons M.D. 05/02/22 AMENDED REPORT 05/02/22 1409 PATH REV previously reported as: July Performed By: #### L 501.3620, L100.0100, L500.2500 #### [facility] [address] [place], [address] Chest 1 View (Portable)on Chest 1 View (Portable) [facility] Imaging Services [address] [place] [address] Chest 1 View (Portable) MR#: [id number] Acct: [id number] Name: BRYAN LUNDBERG Rep #: [id number] : 1995 M 26 From: Bernard york MD PCP: EVELYN Phan Status: REG ER Study: Chest 1 View (Portable) Date of Exam: 05/01/22 Exam# [id number] Ordering Dr: Akash Saucedo DO EXAM: XR CHEST, 1 VIEW CLINICAL INDICATION: Altered mental TECHNIQUE: Frontal view of the chest. This report was created using [employer] report generation technology. COMPARISON: Chest radiograph report of 04/06/2012. FINDINGS: Lordotic positioning. LUNGS AND PLEURAL SPACES: Unremarkable. No consolidation or edema. No pneumothorax. No effusion. HEART: Unremarkable. Cardiac silhouette not enlarged. Normal pulmonary vascularity. MEDIASTINUM: Central airways and mediastinal contour are unremarkable. No mediastinal widening. Trachea is midline. BONES/JOINTS: No acute osseous abnormality. SOFT TISSUES: Unremarkable. RAD/Chest 1 View (Portable) IMPRESSION: No radiographic evidence of acute cardiopulmonary disease. Electronically Signed: Bernard Monet MD at 0:04 EST , CC: EVELYN Nicholson; Dr. Akash Saucedo DO Edge Baster: Signed [facility] Emergency Department Summary on 05-02-2022 Emergency Department Summary [facility] Medical Records Department [address] [place] [address] Emergency Department Summary 05/01/22 MR#: [id number] Acct: [id number] Name: BRYAN LUNDBERG Rep #: [id number] : 1995 26 From: Akash Saucedo DO PCP: EVELYN Phan Status:REG ER Location: ED HPI History of Present Illness Chief Complaint: Overdose Narrative Narrative: 26-year-old male overdosed at home on opioids. He states he uses heroin typically but he thinks is fentanyl. States that all is available anymore. Patient states he had not used in a week because he was trying to quit but overdosed tonight unintentionally. He was given Narcan and did awaken. He is not sure if he did any other drugs. He does not drink alcohol. He states that he has been in rehab several times and has completed it but always falls back on it. He believes it is worse during the winter when he has idle time. In the summer he seems to be able to keep his ear. Patient request detox today [facility] Medical History Asthma Tobacco abuse Home Medications albuterol 90 mcg/actuation aerosol inhaler 90 mcg inhalation 03/02/22 [History Last Taken Unknown] Allergy/AdvReac Type Severity Reaction Status Date / Time amoxicillin trihydrate Allergy Rash Verified 05/01/22 18:55 [From Augmentin] potassium clavulanate Allergy Rash Verified 05/01/22 18:55 [From Augmentin] Family History Brother Hemophilia Father Diabetes Surgical History History of tonsillectomy Social History Smoking Status: Former smoker alcohol intake: current alcohol intake frequency: holidays/special occasions only substance use type: marijuana, heroin, opiates and other details: Fentanyl ROS ROS ED Constitutional Constitutional ED: Denies chills or fever(s) Eyes Eyes: Denies change in vision or diplopia ENT ENT ED: Denies rhinorrhea or sore throat Cardiovascular Cardiovascular: Denies chest pain or palpitations Respiratory/Chest Respiratory/Chest: Denies cough or dyspnea Gastrointestinal Gastrointestinal: Denies abdominal pain or constipation Genitourinary Genitourinary ED: Denies dysuria Musculoskeletal Musculoskeletal: Denies arthralgias Integumentary Denies abscess Neurologic Neurologic: Denies headache(s) or paresthesias Psychiatric Psychiatric: Denies depression, suicidal ideation or suicidal thoughts Endocrine Endocrinology: Denies cold intolerance or heat intolerance EXAM Physical Exam Const Vital Signs: 05/01/22 18:55 05/01/22 22:44 Temperature 97.4 F L Temperature Source Temporal Pulse Rate 137 H 110 H Respiratory Rate 24 H Blood Pressure 148/86 H 134/94 H Blood Pressure Mean 106 107 Pulse Ox 100 98 Oxygen Delivery Method Room Air Room Air Positive well nourished General Appearance ED: NAD; Negative for pallor HEENT Reports moist mucous membranes Eyes PERRL and EOMs intact bilaterally Neck no lymphadenopathy Resp normal respiratory effort and clear to auscultation bilaterally Auscultation: Negative for rales, rhonchi or wheezes Cardio regular rhythm Rate: tachycardic GI soft to palpation and non-tender Back/Spine no CVA tenderness Neuro oriented x3 and CN's II-XII intact bilaterally Sensorium / Orientation: alert Psych mental status grossly normal Skin General Skin Exam: Negative for jaundice or pallor MDM MDM MDM Narrative Medical decision making narrative: Patient presenting after overdose. He believes he snorted fentanyl. He required Narcan. He has been awake and alert since. He request detox. Medical clearance labs were obtained. CBC to assess white blood cell count, hemoglobin, differential. BMP to assess renal function, electrolytes, CO2, anion gap. EtOH was obtained as well as urine drug screen. Patient significantly tachycardic on arrival. He was ordered 2 L of IV fluids. Because of his tachypnea and tachycardia I did obtain a chest x-ray to rule out pneumonia. On my interpretation this is negative for acute process. CBC shows a leukocytosis of 24.4. Hemoglobin stable at 12.2. Platelets normal. Renal function is normal with slight prerenal azotemia. Electrolytes within normal limits. EtOH negative. Urinalysis negative for infection. Drug screen was positive for amphetamines today and cannabinoids. Discussed the patient with the hospitalist and he did not believe the patient would need to be admitted if he is not going to be in withdrawal. The patient is very adamant that he does not think he is going through withdrawal. At this point I talked to him about following up with his counselo (more content not included)... [facility] Urinalysis, Completeon 05-02 AMORPHOUS 1+ [facility] Comment on above: Order Comment: CLEAN CATCH Performed By: #### L 500.4050, L100.0100 #### [facility] [address] [place], [address] BACTERIA 1+ /hpf Normal None Seen [facility] Comment on above: Order Comment: CLEAN CATCH Performed By: #### L 500.4050, L100.0100 #### [facility] [address] [place], [address] RBC 5-10 SEEN Normal 0-5 [facility] Comment on above: Order Comment: CLEAN CATCH Performed By: #### L 500.4050, L100.0100 #### [facility] [address] [place], [address] WBC 5-10 SEEN Normal 0-5 [facility] Comment on above: Order Comment: CLEAN CATCH Performed By: #### L 500.4050, L100.0100 #### [facility] [address] [place], [address] EPI,SQUAMOUS 0 SEEN Normal 0-5 [facility] Comment on above: Order Comment: CLEAN CATCH Performed By: #### L 500.4050, L100.0100 #### [facility] [address] [place], [address] Mucus Ql (Urine sed) 0 SEEN Normal [facility] Comment on above: Order Comment: CLEAN CATCH Performed By: #### L 500.4050, L100.0100 #### [facility] [address] [place], [address] Urine Drug Screen (VISTA)on 05-02-2022 AMPHETAMINES Positive Abnormal <1000 ng/mL [facility] Comment on above: Performed By: #### L 501.3620, L100.0100, L500.2500 #### [facility] [address] [place], [address] BARBITIURATES Negative Normal < 200 ng/mL [facility] Comment on above: Performed By: #### L 501.3620, L100.0100, L500.2500 #### [facility] [address] [place], [address] BENZODIAZIPINE Negative Normal < 200 ng/mL [facility] Comment on above: Performed By: #### L 501.3620, L100.0100, L500.2500 #### [facility] [address] [place], [address] COCAINE Negative Normal < 300 ng/mL [facility] Comment on above: Performed By: #### L 501.3620, L100.0100, L500.2500 #### [facility] [address] [place], [address] ECSTACY Negative Normal < 500 ng/mL [facility] Comment on above: Performed By: #### L 501.3620, L100.0100, L500.2500 #### [facility] [address] [place], [address] METHADONE Negative Normal < 300 ng/mL [facility] Comment on above: Performed By: #### L 501.3620, L100.0100, L500.2500 #### [facility] [address] [place], [address] OPIATES Negative Normal < 300 ng/mL [facility] Comment on above: Performed By: #### L 501.3620, L100.0100, L500.2500 #### [facility] [address] [place], [address] PCP Negative Normal < 25 ng/mL [facility] Comment on above: Performed By: #### L 501.3620, L100.0100, L500.2500 #### [facility] [address] [place], [address] THC Positive Abnormal < 50 ng/mL [facility] Comment on above: Performed By: #### L 501.3620, L100.0100, L500.2500 #### [facility] [address] [place], [address] VISTA UDS PH 6 Normal [facility] Comment on above: Performed By: #### L 501.3620, L100.0100, L500.2500 #### [facility] [address] [place], [address] Absolute lymphocyte countOrd ered By: Dr. Saucedo on 05-01-2022 Lymphocytes Auto (Unsp spec) [#/Vol] 1.68 10*3/uL 0.83-4.51 [facility] Amorphous sediment detection in urine sediment by light microscopyOrdered By: Dr. Saucedo on 05-01-2022 Amorphous sediment LM Ql (Urine sed) 1+ [facility] Basophil percentageOrdered B y: Dr. Saucedo on 05-01-2022 Basophil percentage 5-10 SEEN /hpf 0-5 [facility] Basophils/100 WBC (Bld) 0.2 % 0-1 [facility] Chloride [Moles/Vol] 114 mmol/L 98-107 [facility] Eosinophils/100 WBC (Bld) 0.0 % 0-5 [facility] Glucose [Mass/Vol] 104 mg/dL 74-106 [facility] Comment on above: Fasting Glucose resu lt from 100 to 125 mg/dL suggests IMPAIRED HOMEOSTASIS per A.D.A. criteria. Neutrophils (Bld) [#/Vol] 20.3 10*3/uL 2.0-7.7 [facility] Neutrophils/100 WBC (Bld) 83.1 % 47-70 [facility] Potassium [Moles/Vol] 4.0 mmol/L 3.5-5.1 [facility] Sodium [Moles/Vol] 145 mmol/L 136-145 [facility] WBC (Bld) [#/Vol] 24.4 10*3/uL 4.4-11.0 [facility] Bilirubin Test strip Ql (U)O rdered By: Dr. Saucedo on 05-01-2022 Bilirubin Ql (U) Negative Negative [facility] Blood erythrocytes count (nu mber/volume)Ordered By: Dr. Saucedo on 05-01-2022 RBC (Bld) [#/Vol] 4.20 10*6/uL 4.6-6.2 [facility] Blood hemoglobin measurement (mass/volume)Ordered By: Dr. Suacedo on 05-01-2022 Hemoglobin (Bld) [Mass/Vol] 12.2 g/dL 13.0-16.5 [facility] Blood lymphocytes/100 leukoc ytesOrdered By: Dr. Saucedo on 05-01-2022 Lymphocytes/100 WBC (Bld) 6.9 % 19-41 [facility] Blood monocytes/100 leukocyt esOrdered By: Dr. Saucedo on 05-01-2022 Monocytes/100 WBC (Bld) 8.2 % 0-10 [facility] Blood platelet mean volumeOr dered By: Dr. Saucedo on 05-01-2022 Platelet mean volume (Bld) [Entitic vol] 8.5 fL 6.2-12.0 [facility] Determination of erythrocyte mean corpuscular volume (MCV)Ordered By: Dr. Saucedo on 05-01-2022 MCV (RBC) [Entitic vol] 84.5 fL 80-94 [facility] Hematocrit Auto (Bld) [Volum e fraction]Ordered By: Dr. Saucedo on 05-01-2022 Hematocrit (Bld) [Volume fraction] 35.5 % 40-54 [facility] Ketones Test strip Ql (U)Ord ered By: Dr. Saucedo on 05-01-2022 Ketones Ql (U) 5 mg/dl Negative [facility] - Chemistry and C hemistry - challengeOrdered By: Dr. Saucedo on 05-01-2022 CO2 [Moles/Vol] 27.0 mmol/L 21.0-32.0 [facility] Urea nitrogen/Creatinine [Mass ratio] 26.4 mg/mg 10-20 [facility] - Drug toxicology Ordered By: Dr. Saucedo on 05-01-2022 Amphetamines Ql (U) Positive <1000 ng/mL [facility] Benzodiazepines Ql (U) Negative < 200 ng/mL [facility] Cannabinoids Screen Ql (U) Positive < 50 ng/mL [facility] Cocaine Ql (U) Negative < 300 ng/mL [facility] Opiates Ql (U) Negative < 300 ng/mL [facility] - Hematology and Cell countsOrdered By: Dr. Saucedo on 05-01-2022 Erythrocyte distribution width (RBC) [Entitic vol] 40.4 fL 35.1-43.9 [facility] Erythrocyte distribution width (RBC) [Ratio] 13.1 % 11.6-14.6 [facility] Immature granulocytes/100 WBC (Bld) 1.600 % 0.0-0.9 [facility] Comment on above: IG% - Immature Granu locytes (promyelocytes, myelocytes and metamyelocytes) > 1% indicates that a LEFT SHIFT is Present. MCH (RBC) [Entitic mass] 29.0 pg 27.0-32.0 [facility] Nucleated RBC/100 WBC (Bld) [Ratio] 0 % 0-5 [facility] MCHC Auto (RBC) [Mass/Vol]Or dered By: Dr. Saucedo on 05-01-2022 MCHC (RBC) [Mass/Vol] 34.4 g/dL 32-36 [facility] Mucus LM Ql (Urine sed)Order ed By: Dr. Saucedo on 05-01-2022 Mucus Ql (Urine sed) 0 SEEN /hpf [facility] Nitrite Test strip Ql (U)Ord ered By: Dr. Saucedo on 05-01-2022 Nitrite Ql (U) Negative Negative [facility] No Panel InformationOrdered By: Dr. Saucedo on 05-01-2022 MDMA (Ecstasy) Screen Negative < 500 ng/mL [facility] Urine Barbiturates Screen Negative < 200 ng/mL [facility] Urine Drug Screen Comment [facility] Comment on above: CONFIRMATORY TESTING FOR ALL POSITIVE URINE DRUG SCREENRESULTS WILL ONLY BE SENT OUT UPON PHYSICIAN ORDER. VISTA Urine Drug Screen methods provide only preliminaryanalytical test results. A more specific alternate chemicalmethod must be used in order to obtain a confirmedanalytical result. Gas chromatography/mass spectrometery(GC/MS) is the preferred confirmatory method. Clinicalconsideration and professional judgement should be appliedto any drug of abuse test result, particularly whenpreliminary positive results are used. URINE TCA TESTING MUST BE ORDERED SEPARATELY. USE TESTMNEMONIC: [facility] Urine Methadone Screen Negative < 300 ng/mL [facility] Estimated Creatinine Clearance Calc 91.86 ml/min [facility] Estimated GFR (MDRD) Amer 86 mL/min >60 [facility] Comment on above: GFR Calc Estimated GFR (MDRD) Non-Af Amer 71 mL/min >60 [facility] Comment on above: Non- GFR Calc Ethyl Alcohol Level < 3.0 mg/dL [facility] Comment on above: The serum:whole bloo d ethanol ratio is approximately 1.14and varies slightly with hematocrit. Medical Alcohol reference interval and critical value innon-tolerant individuals; 50 - 100 Impairment 100 Intoxication 100 - 250 Severe Poisoning 250 - 400 Deep/possible fatal coma Platelets bldOrdered By: Dr. Saucedo on 05-01-2022 Platelets (Bld) [#/Vol] 437 10*3/uL 150-450 [facility] Protein Test strip Ql (U)Ord ered By: Dr. Saucedo on 05-01-2022 Protein Ql (U) 100 mg/dl Negative [facility] Review by pathologistOrdered By: Dr. Saucedo on 05-01-2022 Pathologist review Stephane (Unsp spec) [Interp] May foll [facility] Serum or plasma calcium maritza urement (mass/volume)Ordered By: Dr. Saucedo on 05-01-2022 Calcium [Mass/Vol] 7.8 mg/dL 8.5-10.1 [facility] Serum or plasma creatinine m easurement (mass/volume)Ordered By: Dr. Saucedo on 05-01-2022 Creatinine [Mass/Vol] 1.29 mg/dL 0.70-1.30 [facility] Comment on above: The validity of the calculated GFR & GFRAA in patients over 70 years has not been determined. Clinical correlation is essential. Serum or plasma urea nitroge n measurement (mass/volume)Ordered By: Dr. Saucedo on 05-01-2022 Urea nitrogen [Mass/Vol] 34 mg/dL 7-18 [facility] Squamous epithelial cells de tection in urine sediment by light microscopyOrdered By: Dr. Saucedo on 05-01-2022 Epithelial cells.squamous LM Ql (Urine sed) 0 SEEN /hpf 0-5 [facility] Thin prep Papanicolaou smear with manual screeningOrdered By: Dr. Saucedo on 05-01-2022 Thin prep Papanicolaou smear with manual screening 4 5-15 [facility] Urine blood detectionOrdered By: Dr. Saucedo on 05-01-2022 RBC Ql (U) 150 /ul Negative [facility] RBC Ql (U) 5-10 SEEN /hpf 0-5 [facility] Urine clarityOrdered By: Dr. Saucedo on 05-01-2022 Clarity (U) Clear Clear [facility] Urine color determinationOrd ered By: Dr. Saucedo on 05-01-2022 Color (U) Yellow Yellow [facility] Urine glucose detectionOrder ed By: Dr. Saucedo on 05-01-2022 Glucose Ql (U) Normal mg/dl Normal [facility] Urine leukocyte esterase det ection by dipstickOrdered By: Dr. Saucedo on 05-01-2022 Leukocyte esterase Test strip Ql (U) Negative Negative [facility] Urine pHOrdered By: Dr. Javan lai on 05-01-2022 pH (U) 6.0 [pH] 5.0 - 8.0 [facility] Urine phencyclidine (PCP) de tectionOrdered By: Dr. Saucedo on 05-01-2022 Phencyclidine Ql (U) Negative < 25 ng/mL [facility] Urine sediment bacteria coun t by microscopy (number/high power field)Ordered By: Dr. Saucedo on 05-01-2022 Bacteria LM.HPF (Urine sed) [#/Area] 1 /[HPF] None Seen [facility] Urine specific gravity measu rementOrdered By: Dr. Saucedo on 05-01-2022 Specific gravity (U) [Rel density] 1.020 1.002-1.030 [facility] Urobilinogen Auto test strip Ql (U)Ordered By: Dr. Saucedo on 05-01-2022 Urobilinogen Ql (U) Normal mg/dl Normal [facility] Absolute lymphocyte countOrd ered By: Dr. Hernandez on 04-25-2022 Lymphocytes Auto (Unsp spec) [#/Vol] 3.55 10*3/uL 0.83-4.51 [facility] Basophil percentageOrdered B y: Dr. Hernandez on 04-25-2022 Basophils/100 WBC (Bld) 0.5 % 0-1 [facility] Bilirubin [Mass/Vol] 1.30 mg/dL 0.20-1.00 [facility] Comment on above: For patients on eltr ombopag therapy, use of Dimension [place] TBIL is not recommended. Chloride [Moles/Vol] 96 mmol/L 98-107 [facility] Eosinophils/100 WBC (Bld) 1.0 % 0-5 [facility] Glucose [Mass/Vol] 100 mg/dL 74-106 [facility] Comment on above: Fasting Glucose resu lt from 100 to 125 mg/dL suggests IMPAIRED HOMEOSTASIS per A.D.A. criteria. Neutrophils (Bld) [#/Vol] 5.1 10*3/uL 2.0-7.7 [facility] Neutrophils/100 WBC (Bld) 52.5 % 47-70 [facility] Potassium [Moles/Vol] 3.6 mmol/L 3.5-5.1 [facility] Protein [Mass/Vol] 7.3 g/dL 6.4-8.2 [facility] Sodium [Moles/Vol] 131 mmol/L 136-145 [facility] WBC (Bld) [#/Vol] 9.7 10*3/uL 4.4-11.0 [facility] Blood erythrocytes count (nu mber/volume)Ordered By: Dr. Hernandez on 04-25-2022 RBC (Bld) [#/Vol] 5.21 10*6/uL 4.6-6.2 [facility] Blood hemoglobin measurement (mass/volume)Ordered By: Dr. Hernandez on 04-25-2022 Hemoglobin (Bld) [Mass/Vol] 14.8 g/dL 13.0-16.5 [facility] Blood lymphocytes/100 leukoc ytesOrdered By: Dr. Hernandez on 04-25-2022 Lymphocytes/100 WBC (Bld) 36.6 % 19-41 [facility] Blood monocytes/100 leukocyt esOrdered By: Dr. Hernandez on 04-25-2022 Monocytes/100 WBC (Bld) 9.0 % 0-10 [facility] Blood platelet mean volumeOr dered By: Dr. Hernandez on 04-25-2022 Platelet mean volume (Bld) [Entitic vol] 8.4 fL 6.2-12.0 [facility] CBC W/Diff, Automatedon Absolute Lymph 3.55 X10 3/uL Normal 0.83-4.51 [facility] Comment on above: Performed By: #### L 500.4050, L100.0100 #### [facility] [address] [place], [address] Absolute Neut 5.1 X10 3/uL Normal 2.0-7.7 [facility] Comment on above: Performed By: #### L 500.4050, L100.0100 #### [facility] [address] [place], [address] Basophils/100 WBC (Bld) 0.5 % Normal 0-1 [facility] Comment on above: Performed By: #### L 500.4050, L100.0100 #### [facility] [address] [place], [address] Eosinophils/100 WBC (Bld) 1.0 % Normal 0-5 [facility] Comment on above: Performed By: #### L 500.4050, L100.0100 #### [facility] [address] [place], [address] Erythrocyte distribution width (RBC) [Ratio] 12.4 % Normal 11.6-14.6 [facility] Comment on above: Performed By: #### L 500.4050, L100.0100 #### [facility] [address] [place], [address] Hematocrit (Bld) [Volume fraction] 43.0 % Normal 40-54 [facility] Comment on above: Performed By: #### L 500.4050, L100.0100 #### [facility] [address] [place], [address] Hemoglobin (Bld) [Mass/Vol] 14.8 g/dL Normal 13.0-16.5 [facility] Comment on above: Performed By: #### L 500.4050, L100.0100 #### [facility] [address] [place], [address] IG% 0.400 Normal 0.0-0.9 [facility] Comment on above: Result Comment: IG% - Immature Granulocytes (promyelocytes, myelocytes and metamyelocytes) > 1% indicates that a LEFT SHIFT is Present. Performed By: #### L 500.4050, L100.0100 #### [facility] [address] [place], [address] Lymphocytes/100 WBC (Bld) 36.6 % Normal 19-41 [facility] Comment on above: Performed By: #### L 500.4050, L100.0100 #### [facility] [address] [place], [address] MCH (RBC) [Entitic mass] 28.4 pg Normal 27.0-32.0 [facility] Comment on above: Performed By: #### L 500.4050, L100.0100 #### [facility] [address] [place], [address] MCHC (RBC) [Mass/Vol] 34.4 g/dL Normal 32-36 [facility] Comment on above: Performed By: #### L 500.4050, L100.0100 #### [facility] [address] [place], [address] MCV (RBC) [Entitic vol] 82.5 fL Normal 80-94 [facility] Comment on above: Performed By: #### L 500.4050, L100.0100 #### [facility] [address] [place], [address] Monocytes/100 WBC (Bld) 9.0 % Normal 0-10 [facility] Comment on above: Performed By: #### L 500.4050, L100.0100 #### [facility] [address] [place], [address] Neutrophils/100 WBC (Bld) 52.5 % Normal 47-70 [facility] Comment on above: Performed By: #### L 500.4050, L100.0100 #### [facility] [address] [place], [address] Nucleated RBC (Bld) [#/Vol] 0 10*3/uL Normal 0-5 [facility] Comment on above: Performed By: #### L 500.4050, L100.0100 #### [facility] [address] [place], [address] Platelet mean volume (Bld) [Entitic vol] 8.4 fL Normal 6.2-12.0 [facility] Comment on above: Performed By: #### L 500.4050, L100.0100 #### [facility] [address] [place], [address] Platelets (Bld) [#/Vol] 432 10*3/uL Normal 150-450 [facility] Comment on above: Performed By: #### L 500.4050, L100.0100 #### [facility] [address] [place], [address] RBC (Bld) [#/Vol] 5.21 10*6/uL Normal 4.6-6.2 [facility] Comment on above: Performed By: #### L 500.4050, L100.0100 #### [facility] [address] [place], [address] RDW SD 37.7 fl Normal 35.1-43.9 [facility] Comment on above: Performed By: #### L 500.4050, L100.0100 #### [facility] [address] [place], [address] WBC (Bld) [#/Vol] 9.7 10*3/uL Normal 4.4-11.0 [facility] Comment on above: Performed By: #### L 500.4050, L100.0100 #### [facility] [address] [place], [address] Comprehensive Metabolic Prof ilon 04-25-2022 Albumin [Mass/Vol] 3.9 g/dL Normal 3.2-5.0 [facility] Comment on above: Performed By: #### L 500.4050, L100.0100 #### [facility] [address] [place], [address] Albumin/Globulin [Mass ratio] 1.1 {ratio} Normal 0.9-2.4 [facility] Comment on above: Performed By: #### L 500.4050, L100.0100 #### [facility] [address] [place], [address] ALK P 83 U/L Normal 45-117 [facility] Comment on above: Performed By: #### L 500.4050, L100.0100 #### [facility] [address] [place], [address] ALT [Catalytic activity/Vol] 18 U/L Normal 16-61 [facility] Comment on above: Performed By: #### L 500.4050, L100.0100 #### [facility] [address] [place], [address] AST [Catalytic activity/Vol] 11 U/L Low 15-37 [facility] Comment on above: Performed By: #### L 500.4050, L100.0100 #### [facility] [address] [place], [address] Bilirubin [Mass/Vol] 1.30 mg/dL High 0.20-1.00 [facility] Comment on above: Result Comment: For patients on eltrombopag therapy, use of Dimension [place] TBIL is not recommended. Performed By: #### L 500.4050, L100.0100 #### [facility] [address] [place], [address] BUN/CRE 23.8 RATIO High 10-20 [facility] Comment on above: Performed By: #### L 500.4050, L100.0100 #### [facility] [address] [place], [address] CA,Total 8.8 mg/dL Normal 8.5-10.1 [facility] Comment on above: Performed By: #### L 500.4050, L100.0100 #### [facility] [address] [place], [address] Chloride [Moles/Vol] 96 mmol/L Low 98-107 [facility] Comment on above: Performed By: #### L 500.4050, L100.0100 #### [facility] [address] [place], [address] CO2 [Moles/Vol] 27.0 mmol/L Normal 21.0-32.0 [facility] Comment on above: Performed By: #### L 500.4050, L100.0100 #### [facility] [address] [place], [address] Creatinine [Mass/Vol] 1.01 mg/dL Normal 0.70-1.30 [facility] Comment on above: Result Comment: The validity of the calculated GFR GFRAA in patients over 70 years has not been determined. Clinical correlation is essential. Performed By: #### L 500.4050, L100.0100 #### [facility] [address] [place], [address] ECRCL 108.08 ml/min Normal [facility] Comment on above: Performed By: #### L 500.4050, L100.0100 #### [facility] [address] [place], [address] EST GFR - AA 114 mL/min Normal >60 [facility] Comment on above: Result Comment: Afri can Citizen Of [place] GFR Calc Performed By: #### L 500.4050, L100.0100 #### [facility] [address] [place], [address] GAP 8 Normal 5-15 [facility] Comment on above: Performed By: #### L 500.4050, L100.0100 #### [facility] [address] [place], [address] GFR/1.73 sq M.predicted among non-blacks MDRD (S/P/Bld) [Vol rate/Area] 95 mL/min/{1.73_m2} Normal >60 [facility] Comment on above: Result Comment: Non- GFR Calc Performed By: #### L 500.4050, L100.0100 #### [facility] [address] [place], [address] Globulin (S) [Mass/Vol] 3.4 g/dL Normal 2.2-4.2 [facility] Comment on above: Performed By: #### L 500.4050, L100.0100 #### [facility] [address] [place], [address] Glucose [Mass/Vol] 100 mg/dL Normal 74-106 [facility] Comment on above: Result Comment: Fast ing Glucose result from 100 to 125 mg/dL suggests IMPAIRED HOMEOSTASIS per A.D.A. criteria. Performed By: #### L 500.4050, L100.0100 #### [facility] [address] [place], [address] Potassium [Moles/Vol] 3.6 mmol/L Normal 3.5-5.1 [facility] Comment on above: Performed By: #### L 500.4050, L100.0100 #### [facility] [address] [place], [address] Sodium [Moles/Vol] 131 mmol/L Low 136-145 [facility] Comment on above: Performed By: #### L 500.4050, L100.0100 #### [facility] [address] [place], [address] T PROT 7.3 g/dL Normal 6.4-8.2 [facility] Comment on above: Performed By: #### L 500.4050, L100.0100 #### [facility] [address] [place], [address] Urea nitrogen [Mass/Vol] 24 mg/dL High 7-18 [facility] Comment on above: Performed By: #### L 500.4050, L100.0100 #### [facility] [address] [place], [address] Determination of erythrocyte mean corpuscular volume (MCV)Ordered By: Dr. Hernandez on 04-25-2022 MCV (RBC) [Entitic vol] 82.5 fL 80-94 [facility] Discharge Instructionon Discharge Instruction [facility] Medical Records Department [address] [place] [address] Instructions for Home/Discharge Instructions 04/25/22 1211 MR#: [id number] Acct: [id number] Name: BRYAN LUNDBERG Rep #: [id number] : 1995 26 From: Yudelka Hernandez MD PCP: EVELYN Phan Status:ADM IN Discharge Instructions Diet Discharge Diet: No restrictions Activity Discharge Activity: Return to Normal Activity Follow Up Care Test Results: Test results from this visit will be discussed in further detail at your follow-up appointment, if applicable. Discharge Plan Admission Admit Date/Time: 04/23/22 22:22 Primary Reason for Your Visit: Detox Attending Provider: Yudelka Hernandez Primary Care Provider: Stacy Nicholson Consulting Providers: Tory Chirinos Instructions Patient Instructions: ED Opiate Abuse, ED Opioid Withdrawal Additional Instructions / Restrictions: Follow-up 180 on discharge Discharge Orders/Prescriptions Prescriptions: Continued albuterol 90 mcg/actuation Aerosol 90 mcg INHALATION Referrals / Follow Up: Stacy Nicholson PA [Primary Care Provider] - Within 1 Week Disposition Disposition (needs filled in before D/C Order can be placed): Home, Self Care 04/25/22 1213 Yudelka Hernandez MD CC: EVELYN Nicholson; Dr. Tory Chirinos MD Signed Normal [facility] Hematocrit Auto (Bld) [Volum e fraction]Ordered By: Dr. Hernandez on 04-25-2022 Hematocrit (Bld) [Volume fraction] 43.0 % 40-54 [facility] - Chemistry and C hemistry - challengeOrdered By: Dr. Hernandez on 04-25-2022 ALP [Catalytic activity/Vol] 83 U/L 45-117 [facility] ALT [Catalytic activity/Vol] 18 U/L 16-61 [facility] CO2 [Moles/Vol] 27.0 mmol/L 21.0-32.0 [facility] Globulin (S) [Mass/Vol] 3.4 g/dL 2.2-4.2 [facility] Urea nitrogen/Creatinine [Mass ratio] 23.8 mg/mg 10-20 [facility] - Hematology and Cell countsOrdered By: Dr. Hernandez on 02-02-2023 Erythrocyte distribution width (RBC) [Entitic vol] 37.7 fL 35.1-43.9 [facility] Erythrocyte distribution width (RBC) [Ratio] 12.4 % 11.6-14.6 [facility] Immature granulocytes/100 WBC (Bld) 0.400 % 0.0-0.9 [facility] Comment on above: IG% - Immature Granu locytes (promyelocytes, myelocytes and metamyelocytes) > 1% indicates that a LEFT SHIFT is Present. MCH (RBC) [Entitic mass] 28.4 pg 27.0-32.0 [facility] Nucleated RBC/100 WBC (Bld) [Ratio] 0 % 0-5 [facility] MCHC Auto (RBC) [Mass/Vol]Or dered By: Dr. Hernandez on 04-25-2022 MCHC (RBC) [Mass/Vol] 34.4 g/dL 32-36 [facility] No Panel InformationOrdered By: Dr. Hernandez on 04-25-2022 Estimated Creatinine Clearance Calc 108.08 ml/min [facility] Estimated GFR (MDRD) Amer 114 mL/min >60 [facility] Comment on above: GFR Calc Estimated GFR (MDRD) Non-Af Amer 95 mL/min >60 [facility] Comment on above: Non- GFR Calc Platelets bldOrdered By: Dr. Hernandez on 04-25-2022 Platelets (Bld) [#/Vol] 432 10*3/uL 150-450 [facility] Serum or plasma albumin maritza urement (mass/volume)Ordered By: Dr. Hernandez on 04-25-2022 Albumin [Mass/Vol] 3.9 g/dL 3.2-5.0 [facility] Serum or plasma albumin/glob ulin mass ratioOrdered By: Dr. Hernandez on 04-25-2022 Albumin/Globulin [Mass ratio] 1.1 {ratio} 0.9-2.4 [facility] Serum or plasma calcium maritza urement (mass/volume)Ordered By: Dr. Hernandez on 04-25-2022 Calcium [Mass/Vol] 8.8 mg/dL 8.5-10.1 [facility] Serum or plasma creatinine m easurement (mass/volume)Ordered By: Dr. Hernandez on 04-25-2022 Creatinine [Mass/Vol] 1.01 mg/dL 0.70-1.30 [facility] Comment on above: The validity of the calculated GFR & GFRAA in patients over 70 years has not been determined. Clinical correlation is essential. Serum or plasma urea nitroge n measurement (mass/volume)Ordered By: Dr. Hernandez on 04-25-2022 Urea nitrogen [Mass/Vol] 24 mg/dL 7-18 [facility] Thin prep Papanicolaou smear with manual screeningOrdered By: Dr. Hernandez on 04-25-2022 Thin prep Papanicolaou smear with manual screening 11 U/L 15-37 [facility] Thin prep Papanicolaou smear with manual screening 8 5-15 [facility] Abdomen/Pelvis W IV Cont ONL Yon 04-24-2022 Abdomen/Pelvis W IV Cont ONLY [facility] Imaging Services [address] [place] [address] Abdomen/Pelvis W IV Cont ONLY MR#: [id number] Acct: [id number] Name: BRYAN LUNDBERG Rep #: [id number] : 1995 M 26 From: Dav alonso MD PCP: EVELYN Phan Status: ADM IN Study: Abdomen/Pelvis W IV Cont ONLY Date of Exam: Exam# [id number] Ordering Dr: Yudelka Hernandez MD STUDY: CT ABDOMEN AND PELVIS WITH CONTRAST REASON FOR EXAM: Male, 26 years old. Abd pain, r/o pancreatitis vs appendicitis vs coli RADIATION DOSAGE (If Supplied By Facility): CTDIvol = ( 11.68 ) mGy, DLP = ( 537.50 ) mGycm TECHNIQUE: Transaxial images were obtained from the dome of the diaphragm to the symphysis pubis without oral contrast. IV 100mL Isovue-370 was administered. Sagittal and coronal images were reconstructed. Individualized dose optimization techniques were used for this CT. COMPARISON: Comparison is made with prior examination dated 02/19/2022. FINDINGS: The visualized lung bases are unremarkable. The visualized portions of the heart are within normal limits. Normal liver. Normal gallbladder and extrahepatic biliary system. Normal spleen. Normal pancreas. Normal bilateral adrenal glands. Normal right kidney. There is a 1.1 cm cyst in the upper pole of the left kidney. 1.1 cm cyst is also seen in the lower pole of the left kidney. Normal visualized stomach. Normal small intestine. Normal colon. The appendix is visualized and appears normal. Normal abdominal aorta. Normal inferior vena cava. Normal retroperitoneum. Normal urinary bladder. Normal abdominal wall. Normal osseous structures. CT/Abdomen/Pelvis W IV Cont ONLY IMPRESSION: Normal enhanced CT of the abdomen and pelvis. Electronically Signed: Dav Suazo MD at 13:18 EST Reading Location ID and State: [address] [place] [address] , Service support , CC: EVELYN Nicholson; Dr. Yudelka Hernandez MD Edge Baster: Signed Normal [facility] Alcohol, Blood (Medical)-Ser umon 04-24-2022 SERUM ETOH < 3.0 Normal [facility] Comment on above: Result Comment: The serum:whole blood ethanol ratio is approximately 1.14 and varies slightly with hematocrit. Medical Alcohol reference interval and critical value in non-tolerant individuals; 50 - 100 Impairment 100 Intoxication 100 - 250 Severe Poisoning 250 - 400 Deep/possible fatal coma Performed By: #### L 501.9100, L505.5000 #### [facility] [address] [place], [place], [address] CBC W/Diff, Automatedon 02-0 Absolute Lymph 2.81 X10 3/uL Normal 0.83-4.51 [facility] Comment on above: Performed By: #### L 500.4050, L100.0100 #### [facility] [address] [place], [address] Absolute Neut 7.5 X10 3/uL Normal 2.0-7.7 [facility] Comment on above: Performed By: #### L 500.4050, L100.0100 #### [facility] [address] [place], [address] Basophils/100 WBC (Bld) 0.2 % Normal 0-1 [facility] Comment on above: Performed By: #### L 500.4050, L100.0100 #### [facility] [address] [place], [address] Eosinophils/100 WBC (Bld) 0.3 % Normal 0-5 [facility] Comment on above: Performed By: #### L 500.4050, L100.0100 #### [facility] [address] [place], [address] Erythrocyte distribution width (RBC) [Ratio] 12.8 % Normal 11.6-14.6 [facility] Comment on above: Performed By: #### L 500.4050, L100.0100 #### [facility] [address] [place], [address] Hematocrit (Bld) [Volume fraction] 45.2 % Normal 40-54 [facility] Comment on above: Performed By: #### L 500.4050, L100.0100 #### [facility] [address] [place], [address] Hemoglobin (Bld) [Mass/Vol] 15.6 g/dL Normal 13.0-16.5 [facility] Comment on above: Performed By: #### L 500.4050, L100.0100 #### [facility] [address] [place], [address] IG% 0.400 Normal 0.0-0.9 [facility] Comment on above: Result Comment: IG% - Immature Granulocytes (promyelocytes, myelocytes and metamyelocytes) > 1% indicates that a LEFT SHIFT is Present. Performed By: #### L 500.4050, L100.0100 #### [facility] [address] [place], [address] Lymphocytes/100 WBC (Bld) 24.5 % Normal 19-41 [facility] Comment on above: Performed By: #### L 500.4050, L100.0100 #### [facility] [address] [place], [address] MCH (RBC) [Entitic mass] 28.4 pg Normal 27.0-32.0 [facility] Comment on above: Performed By: #### L 500.4050, L100.0100 #### [facility] [address] [place], [address] MCHC (RBC) [Mass/Vol] 34.5 g/dL Normal 32-36 [facility] Comment on above: Performed By: #### L 500.4050, L100.0100 #### [facility] [address] [place], [address] MCV (RBC) [Entitic vol] 82.3 fL Normal 80-94 [facility] Comment on above: Performed By: #### L 500.4050, L100.0100 #### [facility] [address] [place], [address] Monocytes/100 WBC (Bld) 9.0 % Normal 0-10 [facility] Comment on above: Performed By: #### L 500.4050, L100.0100 #### [facility] [address] [place], [address] Neutrophils/100 WBC (Bld) 65.6 % Normal 47-70 [facility] Comment on above: Performed By: #### L 500.4050, L100.0100 #### [facility] [address] [place], [address] Nucleated RBC (Bld) [#/Vol] 0 10*3/uL Normal 0-5 [facility] Comment on above: Performed By: #### L 500.4050, L100.0100 #### [facility] [address] [place], [address] Platelet mean volume (Bld) [Entitic vol] 8.5 fL Normal 6.2-12.0 [facility] Comment on above: Performed By: #### L 500.4050, L100.0100 #### [facility] [address] [place], [address] Platelets (Bld) [#/Vol] 451 10*3/uL High 150-450 [facility] Comment on above: Performed By: #### L 500.4050, L100.0100 #### [facility] [address] [place], [address] RBC (Bld) [#/Vol] 5.49 10*6/uL Normal 4.6-6.2 [facility] Comment on above: Performed By: #### L 500.4050, L100.0100 #### [facility] [address] [place], [address] RDW SD 38.4 fl Normal 35.1-43.9 [facility] Comment on above: Performed By: #### L 500.4050, L100.0100 #### [facility] [address] [place], [address] WBC (Bld) [#/Vol] 11.5 10*3/uL High 4.4-11.0 [facility] Comment on above: Performed By: #### L 500.4050, L100.0100 #### [facility] [address] [place], [address] Comprehensive Metabolic Prof ilon 04-24-2022 Albumin [Mass/Vol] 4.0 g/dL Normal 3.2-5.0 [facility] Comment on above: Performed By: #### L 500.4050, L100.0100 #### [facility] [address] [place], [address] Albumin/Globulin [Mass ratio] 1.1 {ratio} Normal 0.9-2.4 [facility] Comment on above: Performed By: #### L 500.4050, L100.0100 #### [facility] [address] [place], [address] ALK P 89 U/L Normal 45-117 [facility] Comment on above: Performed By: #### L 500.4050, L100.0100 #### [facility] [address] [place], [address] ALT [Catalytic activity/Vol] 19 U/L Normal 16-61 [facility] Comment on above: Performed By: #### L 500.4050, L100.0100 #### [facility] [address] [place], [address] AST [Catalytic activity/Vol] 16 U/L Normal 15-37 [facility] Comment on above: Performed By: #### L 500.4050, L100.0100 #### [facility] [address] [place], [address] Bilirubin [Mass/Vol] 1.20 mg/dL High 0.20-1.00 [facility] Comment on above: Result Comment: For patients on eltrombopag therapy, use of Dimension [place] TBIL is not recommended. Performed By: #### L 500.4050, L100.0100 #### [facility] [address] [place], [address] BUN/CRE 38.4 RATIO High 10-20 [facility] Comment on above: Performed By: #### L 500.4050, L100.0100 #### [facility] [address] [place], [address] CA,Total 8.7 mg/dL Normal 8.5-10.1 [facility] Comment on above: Performed By: #### L 500.4050, L100.0100 #### [facility] [address] [place], [address] Chloride [Moles/Vol] 95 mmol/L Low 98-107 [facility] Comment on above: Performed By: #### L 500.4050, L100.0100 #### [facility] [address] [place], [address] CO2 [Moles/Vol] 24.0 mmol/L Normal 21.0-32.0 [facility] Comment on above: Performed By: #### L 500.4050, L100.0100 #### [facility] [address] [place], [address] Creatinine [Mass/Vol] 0.99 mg/dL Normal 0.70-1.30 [facility] Comment on above: Result Comment: The validity of the calculated GFR GFRAA in patients over 70 years has not been determined. Clinical correlation is essential. Performed By: #### L 500.4050, L100.0100 #### [facility] [address] [place], [address] ECRCL 110.27 ml/min Normal [facility] Comment on above: Performed By: #### L 500.4050, L100.0100 #### [facility] [address] [place], [address] EST GFR - AA 117 mL/min Normal >60 [facility] Comment on above: Result Comment: Afri can Citizen [place] GFR Calc Performed By: #### L 500.4050, L100.0100 #### [facility] [address] [place], [address] GAP 11 Normal 5-15 [facility] Comment on above: Performed By: #### L 500.4050, L100.0100 #### [facility] [address] [place], [address] GFR/1.73 sq M.predicted among non-blacks MDRD (S/P/Bld) [Vol rate/Area] 97 mL/min/{1.73_m2} Normal >60 [facility] Comment on above: Result Comment: Non- GFR Calc Performed By: #### L 500.4050, L100.0100 #### [facility] [address] [place], [address] Globulin (S) [Mass/Vol] 3.8 g/dL Normal 2.2-4.2 [facility] Comment on above: Performed By: #### L 500.4050, L100.0100 #### [facility] [address] [place], [address] Glucose [Mass/Vol] 113 mg/dL High 74-106 [facility] Comment on above: Result Comment: Fast ing Glucose result from 100 to 125 mg/dL suggests IMPAIRED HOMEOSTASIS per A.D.A. criteria. Performed By: #### L 500.4050, L100.0100 #### [facility] [address] [place], [address] Potassium [Moles/Vol] 3.7 mmol/L Normal 3.5-5.1 [facility] Comment on above: Performed By: #### L 500.4050, L100.0100 #### [facility] [address] [place], [address] Sodium [Moles/Vol] 130 mmol/L Low 136-145 [facility] Comment on above: Performed By: #### L 500.4050, L100.0100 #### [facility] [address] [place], [address] T PROT 7.8 g/dL Normal 6.4-8.2 [facility] Comment on above: Performed By: #### L 500.4050, L100.0100 #### [facility] [address] [place], [address] Urea nitrogen [Mass/Vol] 38 mg/dL High 7-18 [facility] Comment on above: Performed By: #### L 500.4050, L100.0100 #### [facility] [address] [place], [address] H AND P Exam - [facility] 04-24-2022 H&P Exam - Hospitalist [facility] Medical Records Department [address] [place] [address] H P Exam - Hospitalist 04/23/226 MR#: [id number] Acct: [id number] Name: BRYAN LUNDBERG Rep #: [id number] : 1995 26 From: Tory Chirinos MD PCP: EVELYN Phan Status:ADM IN Location: [facility] [id number] HPI - General General Date of Admission: 04/23/22 Date of Service: 04/23/22 Chief Complaint: Epigastric pain, request for tox from heroin/fentanyl HPI Narrative BRYAN LUNDBERG, is a 26 M who presents with the above. Patient has past medical history of polysubstance use -daily heroin/fentanyl as well as marijuana. He last used fentanyl/heroin about 2 days ago, but about $20 worth. He comes in complains of abdominal pain especially in the epigastric region. He was last in detox a year ago in March 2021. He denies smoking cigarettes. Denies any fever or chills no nausea vomiting. At time of being seen, he denied any new complaints. He did receive Imodium, Bentyl, morphine, and Zofran in the emergency room as well as IV fluids In the ED, his blood pressure was 142/117, heart rate 120, respiratory rate was 14, temperature 98F, oxygen sat was 95% on room air. Admitting blood work showed sodium 131, potassium 3.7, chloride 93, bicarbonate 27, BUN 43, creatinine 1.30, previous creatinine 0.77. UA was unremarkable. Urine tox was positive for amphetamines, ecstasy and cannabinoids. [facility] Medical History Asthma Tobacco abuse Home Medications albuterol 90 mcg/actuation aerosol inhaler 90 mcg inhalation 03/02/22 [History Last Taken Unknown] Allergy/AdvReac Type Severity Reaction Status Date / Time amoxicillin trihydrate Allergy Rash Verified 03/02/22 08:03 [From Augmentin] potassium clavulanate Allergy Rash Verified 03/02/22 08:03 [From Augmentin] Family History Brother Hemophilia Father Diabetes Surgical History History of tonsillectomy Social History (Updated 04/23/22 @ 22:[address] Tory Chirinos MD) alcohol intake: current alcohol intake frequency: holidays/special occasions only substance use type: marijuana, heroin, opiates and other details: Fentanyl ROS ROS Narrative Constitutional:Denies: Anorexia, Chills, Fever, Night Sweats, Weight Change Eyes: Denies: Blurred vision, Cataracts, Conjunctivae Inflammation, Pain, Redness, Vision Change HEENT: Denies: Difficulty Hearing, Difficulty Swallowing, Head Aches, Hearing Changes, Sinus Congestion, Sinus Drainage Cardiovascular: Denies: Chest Pain, Orthopnea, Palpitations Respiratory: Denies: Cough, Shortness of breath at rest, Sputum production Gastrointestinal: See HPI per Genitourinary: Denies: Dysuria Musculoskeletal: Denies: Joint Pain, Joint stiffness, Joint swelling, Joint Tenderness Skin: Denies: Rash, Wounds Neurological: Denies: Numbness, Tingling, Focal weakness Vital Signs Vital Signs Vital Signs: 04/23/22 18:52 Temperature 98 F Temperature Source Temporal Pulse Rate 123 H Respiratory Rate 14 Blood Pressure 142/117 H Blood Pressure Mean 125 Pulse Ox 95 Oxygen Delivery Method Room Air Weight Weight: 70.9 kg Body Mass Index (BMI) 20.6 Physical Exam Narrative Physical exam: General: Alert, Oriented x3, Cooperative, appears restless HEENT: Atraumatic Oral: Moist Mucosa Neck: Supple Lungs: Clear to auscultation Cardiovascular: HS I+II, regular, no murmurs Abdomen: Bowel Sounds Present, Soft, Non Tender Extremities: No edema Skin: No rashes, No breakdown Neurological: Grossly intact Psych/Mental Status: Appropriate Results Lab / Micro Data Result Diagrams: 04/23/22 19:50 Labs: Laboratory Results - last 24 hr 04/23/22 19:50: Sodium 131 L, Potassium 3.7, Chloride 92 L, Carbon Dioxide 27.0, Anion Gap 12, BUN 43 H, Creatinine 1.30, Estim Creat Clear Calc 86.35, Est GFR (MDRD) Af Amer 86, Est GFR (MDRD) Non- Af 71, BUN/Creatinine Ratio 33.1 H, Glucose 113 H, Calcium 9.7, Total Bilirubin 1.10 H, Direct Bili mejias 0.25, AST 16, ALT 22, Alkaline Phosphatase 105, Total Protein 9.7 H, Albumin 5.0, Globulin 4.7 H, Lipase 122 04/23/22 20:55: Urine Color Yellow, Urine Clarity Clear, Urine pH 6.0, Ur Specific Bristow 1.025, Urine Protein 100 H, Urine Glucose (UA) Normal, Urine Ketones 5 H, Urine Occult Blood Negative, Urine Nitrite Negative, Urine Bilirubin Negative, Urine Urobilinogen Normal, Ur Leukocyte Esterase Negative, Urine RBC 0 SEEN, Urine WBC 0-5 SEEN, Ur Squamous Epith Cells 0 SEEN, Urine Bacteria 0 SEEN, Hyaline Casts 0-5 SEEN, Urine Mucus 0 SEEN 04/23/22 22:00: Ur Drug Screen Comment Rhythm Strip Rhythm Strip: Sinus Tach Rate: 115 Ectopy: None Assessment Pl (more content not included)... Normal [facility] Urine Drug Screen (VISTA)on 04-24-2022 AMPHETAMINES Positive Abnormal <1000 ng/mL [facility] Comment on above: Performed By: #### L 501.9100, L505.5000 #### [facility] [address] [place], [place], [id number] BARBITIURATES Negative Normal < 200 ng/mL [facility] Comment on above: Performed By: #### L 501.9100, L505.5000 #### [facility] [address] [place], [place], [id number] BENZODIAZIPINE Negative Normal < 200 ng/mL [facility] Comment on above: Performed By: #### L 501.9100, L505.5000 #### [facility] [address] [place], [address] COCAINE Negative Normal < 300 ng/mL [facility] Comment on above: Performed By: #### L 501.9100, L505.5000 #### [facility] [address] [place], [address] ECSTACY Positive Abnormal < 500 ng/mL [facility] Comment on above: Performed By: #### L 501.9100, L505.5000 #### [facility] [address] [place], [address] METHADONE Negative Normal < 300 ng/mL [facility] Comment on above: Performed By: #### L 501.9100, L505.5000 #### [facility] [address] [place], [place], [facility] OPIATES Negative Normal < 300 ng/mL [facility] Comment on above: Performed By: #### L 501.9100, L505.5000 #### [facility] [address] [place], [place], [facility] PCP Negative Normal < 25 ng/mL [facility] Comment on above: Performed By: #### L 501.9100, L505.5000 #### [facility] [address] [place], [address] THC Positive Abnormal < 50 ng/mL [facility] Comment on above: Performed By: #### L 501.9100, L505.5000 #### [facility] [address] [place], [address] VISTA UDS PH 5 Normal [facility] Comment on above: Performed By: #### L 501.9100, L505.5000 #### [facility] [address] [place], [address] Basic Metabolic Profile (BMP )on 04-23-2022 BUN/CRE 33.1 RATIO High 10-20 [facility] Comment on above: Performed By: #### L 500.4050, L100.0100 #### [facility] [address] [place], [address] CA,Total 9.7 mg/dL Normal 8.5-10.1 [facility] Comment on above: Performed By: #### L 500.4050, L100.0100 #### [facility] [address] [place], [address] Chloride [Moles/Vol] 92 mmol/L Low 98-107 [facility] Comment on above: Performed By: #### L 500.4050, L100.0100 #### [facility] [address] [place], [address] CO2 [Moles/Vol] 27.0 mmol/L Normal 21.0-32.0 [facility] Comment on above: Performed By: #### L 500.4050, L100.0100 #### [facility] [address] [place], [address] Creatinine [Mass/Vol] 1.30 mg/dL Normal 0.70-1.30 [facility] Comment on above: Result Comment: The validity of the calculated GFR GFRAA in patients over 70 years has not been determined. Clinical correlation is essential. Performed By: #### L 500.4050, L100.0100 #### [facility] [address] [place], [address] ECRCL 86.35 ml/min Normal [facility] Comment on above: Performed By: #### L 500.4050, L100.0100 #### [facility] [address] [place], [address] EST GFR - AA 86 mL/min Normal >60 [facility] Comment on above: Result Comment: Afri can Citizen Of [place] GFR Calc Performed By: #### L 500.4050, L100.0100 #### [facility] [address] [place], [address] GAP 12 Normal 5-15 [facility] Comment on above: Performed By: #### L 500.4050, L100.0100 #### [facility] [address] [place], [address] GFR/1.73 sq M.predicted among non-blacks MDRD (S/P/Bld) [Vol rate/Area] 71 mL/min/{1.73_m2} Normal >60 [facility] Comment on above: Result Comment: Non- GFR Calc Performed By: #### L 500.4050, L100.0100 #### [facility] [address] [place], [address] Glucose [Mass/Vol] 113 mg/dL High 74-106 [facility] Comment on above: Result Comment: Fast ing Glucose result from 100 to 125 mg/dL suggests IMPAIRED HOMEOSTASIS per A.D.A. criteria. Performed By: #### L 500.4050, L100.0100 #### [facility] [address] [place], [address] Potassium [Moles/Vol] 3.7 mmol/L Normal 3.5-5.1 [facility] Comment on above: Performed By: #### L 500.4050, L100.0100 #### [facility] [address] [place], [address] Sodium [Moles/Vol] 131 mmol/L Low 136-145 [facility] Comment on above: Performed By: #### L 500.4050, L100.0100 #### [facility] [address] [place], [address] Urea nitrogen [Mass/Vol] 43 mg/dL High 7-18 [facility] Comment on above: Performed By: #### L 500.4050, L100.0100 #### [facility] [address] [place], [address] Basophil percentageOrdered B y: Dr. Cha on 04-23-2022 Basophil percentage 0-5 SEEN /hpf 0-5 [facility] Bilirubin [Mass/Vol] 1.10 mg/dL 0.20-1.00 [facility] Comment on above: For patients on eltr ombopag therapy, use of Dimension [place] TBIL is not recommended. Chloride [Moles/Vol] 92 mmol/L 98-107 [facility] Glucose [Mass/Vol] 113 mg/dL 74-106 [facility] Comment on above: Fasting Glucose resu lt from 100 to 125 mg/dL suggests IMPAIRED HOMEOSTASIS per A.D.A. criteria. Potassium [Moles/Vol] 3.7 mmol/L 3.5-5.1 [facility] Protein [Mass/Vol] 9.7 g/dL 6.4-8.2 [facility] Sodium [Moles/Vol] 131 mmol/L 136-145 [facility] Bilirubin Test strip Ql (U)O rdered By: Dr. Cha on 04-23-2022 Bilirubin Ql (U) Negative Negative [facility] Direct bilirubinOrdered By: Dr. Cha on 04-23-2022 Bilirubin.direct [Mass/Vol] 0.25 mg/dL 0.00-0.30 [facility] Emergency Department Summary on 04-23-2022 Emergency Department Summary [facility] Medical Records Department [address] [place] [address] Emergency Department Summary 04/23/22 MR#: [id number] Acct: [id number] Name: BRYAN LUNDBERG Rep #: [id number] : 1995 26 From: Fam Cha MD PCP: EVELYN Phan Status:REG ER Location: ED HPI HPI - GI History of Present Illness Chief Complaint: Abd Pain Detail of Chief Complaint: Abdominal pain with vomiting and diarrhea Informant: patient Abdominal Pain/Flank Pain Onset: Days (Days ago) Context: Sudden Onset Timing: Continuous Quality: - (Pain) Location: Epigastric (Predominantly epigastrium) Current Severity: Moderate Maximum Severity: Severe Worsened by: Nothing Relieved by: Nothing Nausea/Vomiting/Emesis GI Symptom: Positive for Nausea and Vomiting Onset: Yesterday Episodes: 3 Diarrhea/Melena/Hematoc hezia GI Symptom: Positive for Diarrhea; Negative for Melena or Hematochezia Onset: Yesterday Stool Quality: Positive for Watery; Negative for Mucous, Black, Maroon or BRB per rectum Severity: Moderate Associated Symptoms Associated Symptoms: Negative for Dysuria, Frequency, Hematuria or Urgency Narrative Narrative: Patient is a 26-year-old male with history of hyperactive airway disease who presents with abdominal pain that is worse in the epigastric area. He states its pain. He is not able describe it any more than pain. He denies intolerance to greasy or fried foods. Mother has history of cholelithiasis and is status postcholecystectomy. He denies fever, chills night sweats. He denies headache, visual, ocular auditory symptoms. He denies cardiac or respiratory symptoms. He denies any ill contacts. There is no history of inflammatory bowel disorder. He denies eating anything that tasted unusual. He states he has not been on antibiotics in the last month. He has not taken anything for the pain, vomiting or diarrhea. He denies myalgias or arthralgias. He denies joint swelling. He denies rash. Prior similar symptoms: Yes Recent Illness/Hospitalization : No PFSH PFSH Medical History Asthma Tobacco abuse Home Medications albuterol 90 mcg/actuation aerosol inhaler 90 mcg inhalation 03/02/22 [History Last Taken Unknown] Allergy/AdvReac Type Severity Reaction Status Date / Time amoxicillin trihydrate Allergy Rash Verified 03/02/22 08:03 [From Augmentin] potassium clavulanate Allergy Rash Verified 03/02/22 08:03 [From Augmentin] Family History Brother Hemophilia Father Diabetes Surgical History History of tonsillectomy Social History Smoking Status: Current every day smoker tobacco type: cigarettes alcohol intake: current alcohol intake frequency: holidays/special occasions only substance use type: marijuana, heroin, opiates and other details: Fentanyl ROS ROS ED Constitutional Constitutional ED: Denies chills, fever(s), subjective, sweats or weight loss ENT ENT ED: Denies ear pain, rhinorrhea or sore throat Cardiovascular Cardiovascular: Denies chest pain or palpitations Respiratory/Chest Respiratory/Chest: Denies cough, dyspnea or dyspnea on exertion Gastrointestinal Gastrointestinal: Reports abdominal pain, diarrhea, nausea and vomiting; Denies constipation or melena Genitourinary Genitourinary ED: Denies dysuria, hematuria or other Musculoskeletal Musculoskeletal: Denies arthralgias, back pain, myalgias or neck pain Integumentary Denies rash Neurologic Neurologic: Denies headache(s), paresthesias or weakness Endocrine Endocrinology: Denies polydipsia, polyphagia or polyuria Hematologic/Lymphatic Hematologic/Lymphatic: Denies easy bleeding or easy bruising Allergic/Immunologic Allergic/Immunologic ED: Denies mouth swelling or tongue swelling EXAM Physical Exam Const Vital Signs: 04/23/22 18:52 Temperature 98 F Temperature Source Temporal Pulse Rate 123 H Respiratory Rate 14 Blood Pressure 142/117 H Blood Pressure Mean 125 Pulse Ox 95 Oxygen Delivery Method Room Air Positive well nourished and well developed Constitutional Narrative: Patient appears uncomfortable. General Appearance ED: well developed; Negative for pallor HEENT Reports TM's clear and dry mucous membranes HEENT Narrative: Nares patent. Uvula midline. normocephalic and atraumatic Tympanic Membrane ED: Yes TM's clear Mouth ED: Yes dry mucous membranes Mouth: dry mucous membranes Eyes PERRL and EOMs intact bilaterally General Eye ED: Negative for pale conjunctiva or scleral icterus Neck no lymphadenopathy, supple and no JVD Resp normal respiratory effort and clear to auscultation (more content not included)... Normal [facility] Hyaline casts LM.LPF (Urine sed) [#/Area]Ordered By: Dr. Cha on 04-23-2022 Hyaline casts (Urine sed) [#/Area] 0 /[LPF] 0-5 [facility] Ketones Test strip Ql (U)Ord ered By: Dr. Cha on 04-23-2022 Ketones Ql (U) 5 mg/dl Negative [facility] - Chemistry and C hemistry - challengeOrdered By: Dr. Cha on 04-23-2022 ALP [Catalytic activity/Vol] 105 U/L 45-117 [facility] ALT [Catalytic activity/Vol] 22 U/L 16-61 [facility] CO2 [Moles/Vol] 27.0 mmol/L 21.0-32.0 [facility] Globulin (S) [Mass/Vol] 4.7 g/dL 2.2-4.2 [facility] Lipase [Catalytic activity/Vol] 122 U/L 73-393 [facility] Urea nitrogen/Creatinine [Mass ratio] 33.1 mg/mg 10-20 [facility] - Drug toxicology Ordered By: Dr. Cha on 04-23-2022 Amphetamines Ql (U) Positive <1000 ng/mL [facility] Benzodiazepines Ql (U) Negative < 200 ng/mL [facility] Cannabinoids Screen Ql (U) Positive < 50 ng/mL [facility] Cocaine Ql (U) Negative < 300 ng/mL [facility] Opiates Ql (U) Negative < 300 ng/mL [facility] Lipaseon 04-23-2022 Lipase [Catalytic activity/Vol] 122 U/L Normal 73-393 [facility] Comment on above: Performed By: #### L 500.4050, L100.0100 #### [facility] [address] [place], [address] Liver Profileon 04-23-2022 Albumin [Mass/Vol] 5.0 g/dL Normal 3.2-5.0 [facility] Comment on above: Performed By: #### L 500.4050, L100.0100 #### [facility] [address] [place], [address] ALK P 105 U/L Normal 45-117 [facility] Comment on above: Performed By: #### L 500.4050, L100.0100 #### [facility] [address] [place], [address] ALT [Catalytic activity/Vol] 22 U/L Normal 16-61 [facility] Comment on above: Performed By: #### L 500.4050, L100.0100 #### [facility] [address] [place], [address] AST [Catalytic activity/Vol] 16 U/L Normal 15-37 [facility] Comment on above: Performed By: #### L 500.4050, L100.0100 #### [facility] [address] [place], [address] Bilirubin [Mass/Vol] 1.10 mg/dL High 0.20-1.00 [facility] Comment on above: Result Comment: For patients on eltrombopag therapy, use of Dimension [place] TBIL is not recommended. Performed By: #### L 500.4050, L100.0100 #### [facility] [address] [place], [address] Bilirubin.direct [Mass/Vol] 0.25 mg/dL Normal 0.00-0.30 [facility] Comment on above: Performed By: #### L 500.4050, L100.0100 #### [facility] [address] [place], [address] Globulin (S) [Mass/Vol] 4.7 g/dL High 2.2-4.2 [facility] Comment on above: Performed By: #### L 500.4050, L100.0100 #### [facility] [address] [place], [address] T PROT 9.7 g/dL High 6.4-8.2 [facility] Comment on above: Performed By: #### L 500.4050, L100.0100 #### [facility] [address] [place], [address] Mucus LM Ql (Urine sed)Order ed By: Dr. Cah on 04-23-2022 Mucus Ql (Urine sed) 0 SEEN /hpf [facility] Nitrite Test strip Ql (U)Ord ered By: Dr. Cha on 04-23-2022 Nitrite Ql (U) Negative Negative [facility] No Panel InformationOrdered By: Dr. Cha on 04-23-2022 Ethyl Alcohol Level < 3.0 mg/dL [facility] Comment on above: The serum:whole bloo d ethanol ratio is approximately 1.14and varies slightly with hematocrit. Medical Alcohol reference interval and critical value innon-tolerant individuals; 50 - 100 Impairment 100 Intoxication 100 - 250 Severe Poisoning 250 - 400 Deep/possible fatal coma MDMA (Ecstasy) Screen Positive < 500 ng/mL [facility] Urine Barbiturates Screen Negative < 200 ng/mL [facility] Urine Drug Screen Comment [facility] Comment on above: CONFIRMATORY TESTING FOR ALL POSITIVE URINE DRUG SCREENRESULTS WILL ONLY BE SENT OUT UPON PHYSICIAN ORDER. VISTA Urine Drug Screen methods provide only preliminaryanalytical test results. A more specific alternate chemicalmethod must be used in order to obtain a confirmedanalytical result. Gas chromatography/mass spectrometery(GC/MS) is the preferred confirmatory method. Clinicalconsideration and professional judgement should be appliedto any drug of abuse test result, particularly whenpreliminary positive results are used. URINE TCA TESTING MUST BE ORDERED SEPARATELY. USE TESTMNEMONIC: [facility] Urine Methadone Screen Negative < 300 ng/mL [facility] Estimated Creatinine Clearance Calc 86.35 ml/min [facility] Estimated GFR (MDRD) Amer 86 mL/min >60 [facility] Comment on above: GFR Calc Estimated GFR (MDRD) Non-Af Amer 71 mL/min >60 [facility] Comment on above: Non- GFR Calc Protein Test strip Ql (U)Ord ered By: Dr. Cha on 04-23-2022 Protein Ql (U) 100 mg/dl Negative [facility] Serum or plasma albumin maritza urement (mass/volume)Ordered By: Dr. Cha on 04-23-2022 Albumin [Mass/Vol] 5.0 g/dL 3.2-5.0 [facility] Serum or plasma calcium maritza urement (mass/volume)Ordered By: Dr. Cha on 04-23-2022 Calcium [Mass/Vol] 9.7 mg/dL 8.5-10.1 [facility] Serum or plasma creatinine m easurement (mass/volume)Ordered By: Dr. Cha on 04-23-2022 Creatinine [Mass/Vol] 1.30 mg/dL 0.70-1.30 [facility] Comment on above: The validity of the calculated GFR & GFRAA in patients over 70 years has not been determined. Clinical correlation is essential. Serum or plasma urea nitroge n measurement (mass/volume)Ordered By: Dr. Cha on 04-23-2022 Urea nitrogen [Mass/Vol] 43 mg/dL 7-18 [facility] Squamous epithelial cells de tection in urine sediment by light microscopyOrdered By: Dr. Cha on 04-23-2022 Epithelial cells.squamous LM Ql (Urine sed) 0 SEEN /hpf 0-5 [facility] Thin prep Papanicolaou smear with manual screeningOrdered By: Dr. Cha on 04-23-2022 Thin prep Papanicolaou smear with manual screening 16 U/L 15-37 [facility] Thin prep Papanicolaou smear with manual screening 12 5-15 [facility] Urinalysis, Completeon 04-23 CAST,HYALINE 0-5 SEEN Normal 0-5 [facility] Comment on above: Order Comment: CLEAN CATCH Performed By: #### L 400.0001 #### [facility] [address] [place], [address] WBC 0-5 SEEN Normal 0-5 [facility] Comment on above: Order Comment: CLEAN CATCH Performed By: #### L 400.0001 #### [facility] [address] [place], [address] BACTERIA 0 SEEN Normal None Seen [facility] Comment on above: Order Comment: CLEAN CATCH Performed By: #### L 400.0001 #### [facility] [address] [place], [address] EPI,SQUAMOUS 0 SEEN Normal 0-5 [facility] Comment on above: Order Comment: CLEAN CATCH Performed By: #### L 400.0001 #### [facility] [address] [place], [address] Mucus Ql (Urine sed) 0 SEEN Normal [facility] Comment on above: Order Comment: CLEAN CATCH Performed By: #### L 400.0001 #### [facility] [address] [place], [address] RBC 0 SEEN Normal 0-5 [facility] Comment on above: Order Comment: CLEAN CATCH Performed By: #### L 400.0001 #### [facility] [address] [place], [place], [id number] Urine blood detectionOrdered By: Dr. Cha on 04-23-2022 RBC Ql (U) Negative Negative [facility] RBC Ql (U) 0 SEEN /hpf 0-5 [facility] Urine clarityOrdered By: Dr. Cha on 04-23-2022 Clarity (U) Clear Clear [facility] Urine color determinationOrd ered By: Dr. Cha on 04-23-2022 Color (U) Yellow Yellow [facility] Urine glucose detectionOrder ed By: Dr. Cha on 04-23-2022 Glucose Ql (U) Normal mg/dl Normal [facility] Urine leukocyte esterase det ection by dipstickOrdered By: Dr. Cha on 04-23-2022 Leukocyte esterase Test strip Ql (U) Negative Negative [facility] Urine pHOrdered By: Dr. Wilfrid rich on 04-23-2022 pH (U) 6.0 [pH] 5.0 - 8.0 [facility] Urine phencyclidine (PCP) de tectionOrdered By: Dr. Cha on 04-23-2022 Phencyclidine Ql (U) Negative < 25 ng/mL [facility] Urine sediment bacteria coun t by microscopy (number/high power field)Ordered By: Dr. Cha on 04-23-2022 Bacteria LM.HPF (Urine sed) [#/Area] 0 /[HPF] None Seen [facility] Urine specific gravity measu rementOrdered By: Dr. Cha on 04-23-2022 Specific gravity (U) [Rel density] 1.025 1.002-1.030 [facility] Urobilinogen Auto test strip Ql (U)Ordered By: Dr. Cha on 04-23-2022 Urobilinogen Ql (U) Normal mg/dl Normal [facility] Absolute lymphocyte countOrd ered By: Dr. Menendez on 03-02-2022 Lymphocytes Auto (Unsp spec) [#/Vol] 3.06 10*3/uL 0.83-4.51 [facility] Basic Metabolic Profile (BMP )on 03-02-2022 BUN/CRE 15.5 RATIO Normal 10-20 [facility] Comment on above: Performed By: #### L 501.3620, L100.0100, L500.2500 #### [facility] [address] [place], [address] CA,Total 9.2 mg/dL Normal 8.5-10.1 [facility] Comment on above: Performed By: #### L 501.3620, L100.0100, L500.2500 #### [facility] [address] [place], [address] Chloride [Moles/Vol] 107 mmol/L Normal 98-107 [facility] Comment on above: Performed By: #### L 501.3620, L100.0100, L500.2500 #### [facility] [address] [place], [address] CO2 [Moles/Vol] 29.0 mmol/L Normal 21.0-32.0 [facility] Comment on above: Performed By: #### L 501.3620, L100.0100, L500.2500 #### [facility] [address] [place], [address] Creatinine [Mass/Vol] 0.77 mg/dL Normal 0.70-1.30 [facility] Comment on above: Result Comment: The validity of the calculated GFR GFRAA in patients over 70 years has not been determined. Clinical correlation is essential. Performed By: #### L 501.3620, L100.0100, L500.2500 #### [facility] [address] [place], [address] ECRCL 153.90 ml/min Normal [facility] Comment on above: Performed By: #### L 501.3620, L100.0100, L500.2500 #### [facility] [address] [place], [address] EST GFR - AA 156 mL/min Normal >60 [facility] Comment on above: Result Comment: Afri can Citizen Of [place] GFR Calc Performed By: #### L 501.3620, L100.0100, L500.2500 #### [facility] [address] [place], [address] GAP 5 Normal 5-15 [facility] Comment on above: Performed By: #### L 501.3620, L100.0100, L500.2500 #### [facility] [address] [place], [address] GFR/1.73 sq M.predicted among non-blacks MDRD (S/P/Bld) [Vol rate/Area] 129 mL/min/{1.73_m2} Normal >60 [facility] Comment on above: Result Comment: Non- GFR Calc Performed By: #### L 501.3620, L100.0100, L500.2500 #### [facility] [address] [place], [address] Glucose [Mass/Vol] 98 mg/dL Normal 74-106 [facility] Comment on above: Performed By: #### L 501.3620, L100.0100, L500.2500 #### [facility] [address] [place], [address] Potassium [Moles/Vol] 3.5 mmol/L Normal 3.5-5.1 [facility] Comment on above: Performed By: #### L 501.3620, L100.0100, L500.2500 #### [facility] [address] [place], [address] Sodium [Moles/Vol] 141 mmol/L Normal 136-145 [facility] Comment on above: Performed By: #### L 501.3620, L100.0100, L500.2500 #### [facility] [address] [place], [address] Urea nitrogen [Mass/Vol] 12 mg/dL Normal 7-18 [facility] Comment on above: Performed By: #### L 501.3620, L100.0100, L500.2500 #### [facility] [address] [place], [address] Basophil percentageOrdered B y: Dr. Menendez on 03-02-2022 Basophils/100 WBC (Bld) 0.4 % 0-1 [facility] Chloride [Moles/Vol] 107 mmol/L 98-107 [facility] Eosinophils/100 WBC (Bld) 3.5 % 0-5 [facility] Glucose [Mass/Vol] 98 mg/dL 74-106 [facility] Neutrophils (Bld) [#/Vol] 2.9 10*3/uL 2.0-7.7 [facility] Neutrophils/100 WBC (Bld) 43.1 % 47-70 [facility] Potassium [Moles/Vol] 3.5 mmol/L 3.5-5.1 [facility] Sodium [Moles/Vol] 141 mmol/L 136-145 [facility] WBC (Bld) [#/Vol] 6.8 10*3/uL 4.4-11.0 [facility] Blood erythrocytes count (nu mber/volume)Ordered By: Dr. Menendez on 03-02-2022 RBC (Bld) [#/Vol] 4.89 10*6/uL 4.6-6.2 [facility] Blood hemoglobin measurement (mass/volume)Ordered By: Dr. Menendez on 03-02-2022 Hemoglobin (Bld) [Mass/Vol] 13.8 g/dL 13.0-16.5 [facility] Blood lymphocytes/100 leukoc ytesOrdered By: Dr. Menendez on 03-02-2022 Lymphocytes/100 WBC (Bld) 45.1 % 19-41 [facility] Blood monocytes/100 leukocyt esOrdered By: Dr. Menendez on 03-02-2022 Monocytes/100 WBC (Bld) 7.8 % 0-10 [facility] Blood platelet mean volumeOr dered By: Dr. Menendez on 03-02-2022 Platelet mean volume (Bld) [Entitic vol] 8.8 fL 6.2-12.0 [facility] CBC W/Diff, Automatedon 12-2021 Absolute Lymph 3.06 X10 3/uL Normal 0.83-4.51 [facility] Comment on above: Performed By: #### L 501.3620, L100.0100, L500.2500 #### [facility] [address] [place], [address] Absolute Neut 2.9 X10 3/uL Normal 2.0-7.7 [facility] Comment on above: Performed By: #### L 501.3620, L100.0100, L500.2500 #### [facility] [address] [place], [address] Basophils/100 WBC (Bld) 0.4 % Normal 0-1 [facility] Comment on above: Performed By: #### L 501.3620, L100.0100, L500.2500 #### [facility] [address] [place], [address] Eosinophils/100 WBC (Bld) 3.5 % Normal 0-5 [facility] Comment on above: Performed By: #### L 501.3620, L100.0100, L500.2500 #### [facility] [address] [place], [address] Erythrocyte distribution width (RBC) [Ratio] 13.2 % Normal 11.6-14.6 [facility] Comment on above: Performed By: #### L 501.3620, L100.0100, L500.2500 #### [facility] [address] [place], [address] Hematocrit (Bld) [Volume fraction] 41.0 % Normal 40-54 [facility] Comment on above: Performed By: #### L 501.3620, L100.0100, L500.2500 #### [facility] [address] [place], [address] Hemoglobin (Bld) [Mass/Vol] 13.8 g/dL Normal 13.0-16.5 [facility] Comment on above: Performed By: #### L 501.3620, L100.0100, L500.2500 #### [facility] [address] [place], [address] IG% 0.100 Normal 0.0-0.9 [facility] Comment on above: Result Comment: IG% - Immature Granulocytes (promyelocytes, myelocytes and metamyelocytes) > 1% indicates that a LEFT SHIFT is Present. Performed By: #### L 501.3620, L100.0100, L500.2500 #### [facility] [address] [place], [address] Lymphocytes/100 WBC (Bld) 45.1 % High 19-41 [facility] Comment on above: Performed By: #### L 501.3620, L100.0100, L500.2500 #### [facility] [address] [place], [address] MCH (RBC) [Entitic mass] 28.2 pg Normal 27.0-32.0 [facility] Comment on above: Performed By: #### L 501.3620, L100.0100, L500.2500 #### [facility] [address] [place], [address] MCHC (RBC) [Mass/Vol] 33.7 g/dL Normal 32-36 [facility] Comment on above: Performed By: #### L 501.3620, L100.0100, L500.2500 #### [facility] [address] [place], [address] MCV (RBC) [Entitic vol] 83.8 fL Normal 80-94 [facility] Comment on above: Performed By: #### L 501.3620, L100.0100, L500.2500 #### [facility] [address] [place], [address] Monocytes/100 WBC (Bld) 7.8 % Normal 0-10 [facility] Comment on above: Performed By: #### L 501.3620, L100.0100, L500.2500 #### [facility] [address] [place], [address] Neutrophils/100 WBC (Bld) 43.1 % Low 47-70 [facility] Comment on above: Performed By: #### L 501.3620, L100.0100, L500.2500 #### [facility] [address] [place], [address] Nucleated RBC (Bld) [#/Vol] 0 10*3/uL Normal 0-5 [facility] Comment on above: Performed By: #### L 501.3620, L100.0100, L500.2500 #### [facility] [address] [place], [address] Platelet mean volume (Bld) [Entitic vol] 8.8 fL Normal 6.2-12.0 [facility] Comment on above: Performed By: #### L 501.3620, L100.0100, L500.2500 #### [facility] [address] [place], [address] Platelets (Bld) [#/Vol] 371 10*3/uL Normal 150-450 [facility] Comment on above: Performed By: #### L 501.3620, L100.0100, L500.2500 #### [facility] [address] [place], [address] RBC (Bld) [#/Vol] 4.89 10*6/uL Normal 4.6-6.2 [facility] Comment on above: Performed By: #### L 501.3620, L100.0100, L500.2500 #### [facility] [address] [place], [address] RDW SD 40.3 fl Normal 35.1-43.9 [facility] Comment on above: Performed By: #### L 501.3620, L100.0100, L500.2500 #### [facility] [address] [place], [address] WBC (Bld) [#/Vol] 6.8 10*3/uL Normal 4.4-11.0 [facility] Comment on above: Performed By: #### L 501.3620, L100.0100, L500.2500 #### [facility] [address] [place], [address] CPK Total, Creatine Kinaseon 03-02-2022 CPK TOTAL 196 U/L Normal 39-308 [facility] Comment on above: Performed By: #### L 501.3620, L100.0100, L500.2500 #### [facility] [address] [place], [address] Determination of erythrocyte mean corpuscular volume (MCV)Ordered By: Dr. Menendez on 03-02-2022 MCV (RBC) [Entitic vol] 83.8 fL 80-94 [facility] Emergency Department Summary on 03-02-2022 Emergency Department Summary [facility] Medical Records Department [address] [place] [address] Emergency Department Summary 03/02/22 MR#: [id number] Acct: [id number] Name: BRYAN LUNDBERG Rep #: [id number] : 1995 26 From: [place] Menendez MD PCP: EVELYN Phan Status:REG ER Location: ED HPI History of Present Illness Chief Complaint: Flank Pain Informant: patient Narrative Narrative: Patient states he is having some pain in his right lower back. Its been there for at least a few days. He thinks it started about the time he was seen in the emergency department. He was told his kidneys were failing but he refused to stay. He has been drinking fluids. He is not vomiting. He states he is urinating a pretty good amount and its light-colored. Its not darker brown. He has not seen blood. He states his back is just a little sore. It is a little sore when he moves or twists. He has no numbness tingling or weakness. He denies fevers or chills. No anterior abdominal pain. No nausea or vomiting. He just thinks that he probably should have stayed in the hospital and he wants to make sure his kidneys are okay. Again, he has been trying to drink a lot of fluids. Patient does smoke marijuana. He admitted to opiate use. But he denies injection of any drugs. [facility] Medical History Asthma Tobacco abuse Home Medications albuterol 90 mcg/actuation aerosol inhaler mcg inhalation 03/02/22 [History Last Taken Unknown] Allergy/AdvReac Type Severity Reaction Status Date / Time amoxicillin trihydrate Allergy Rash Verified 03/02/22 08:03 [From Augmentin] potassium clavulanate Allergy Rash Verified 03/02/22 08:03 [From Augmentin] Family History Brother Hemophilia Father Diabetes Surgical History History of tonsillectomy Social History Smoking Status: Current every day smoker tobacco type: cigarettes alcohol intake: current alcohol intake frequency: holidays/special occasions only substance use type: marijuana, heroin, opiates and other details: Fentanyl ROS ROS ED Constitutional Constitutional ED: Denies chills, fever(s), subjective or sweats Eyes Eyes: Denies change in vision ENT ENT ED: Denies rhinorrhea or sore throat Cardiovascular Cardiovascular: Denies chest pain or palpitations Respiratory/Chest Respiratory/Chest: Denies cough or dyspnea Gastrointestinal Gastrointestinal: Denies abdominal pain, nausea or vomiting Genitourinary Genitourinary ED: Denies dysuria, hematuria or urinary frequency Musculoskeletal Musculoskeletal: Reports back pain; Denies myalgias Integumentary Denies rash Neurologic Neurologic: Denies headache(s) Endocrine Endocrinology: Denies polydipsia or polyuria Hematologic/Lymphatic Hematologic/Lymphatic: Denies easy bleeding or easy bruising Allergic/Immunologic Allergic/Immunologic ED: Denies urticaria EXAM Physical Exam Const Vital Signs: 03/02/22 08:01 03/02/22 08:02 Temperature 97.4 F L 98.7 F Temperature Source Temporal Temporal Pulse Rate 106 H 121 H Respiratory Rate 18 18 Blood Pressure 157/96 H 159/99 H Blood Pressure Mean 116 119 Pulse Ox 94 95 Oxygen Delivery Method Room Air Room Air Positive well nourished and well developed Constitutional Narrative: Patient has trouble sitting still. He moves his extremities and twist constantly in bed. He has appearance as though he is under the influence of some chemicals such as methamphetamine or some version of a stimulant. He denies this. General Appearance ED: well developed; Negative for cyanotic or diaphoretic HEENT Reports moist mucous membranes HEENT Narrative: Mucous membranes are still moist. Eyes General Eye ED: Negative for scleral icterus Neck no lymphadenopathy Resp normal respiratory effort and clear to auscultation bilaterally Resp Narrative: Despite a history of asthma, his lungs are clear. Cardio regular rhythm Rate: tachycardic GI normal to inspection, nondistended, normoactive bowel sounds, non-tender and non-distended; Negative for hepatosplenomegaly Back/Spine Back/Spine Narrative: Patient has no CVA tenderness. He does point to his right paraspinal but is really lower down in the back. It is a little sore when he twists or moves. There is no skin changes in the area. There is a small abrasion in the left flank area but is not infected and is quite small and is not indicative of any significant trauma. Extremity normal to inspection General Extremety ED: Negative for edema or tenderness General Extremity: Negative for edema Neuro oriented x3 Psych Moo (more content not included)... Normal [facility] Hematocrit Auto (Bld) [Volum e fraction]Ordered By: Dr. Menendez on 03-02-2022 Hematocrit (Bld) [Volume fraction] 41.0 % 40-54 [facility] - Chemistry and C hemistry - challengeOrdered By: Dr. Menendez on 03-02-2022 CK [Catalytic activity/Vol] 196 U/L 39-308 [facility] CO2 [Moles/Vol] 29.0 mmol/L 21.0-32.0 [facility] Urea nitrogen/Creatinine [Mass ratio] 15.5 mg/mg 10-20 [facility] - Hematology and Cell countsOrdered By: Dr. Menendez on 03-02-2022 Erythrocyte distribution width (RBC) [Entitic vol] 40.3 fL 35.1-43.9 [facility] Erythrocyte distribution width (RBC) [Ratio] 13.2 % 11.6-14.6 [facility] Immature granulocytes/100 WBC (Bld) 0.100 % 0.0-0.9 [facility] Comment on above: IG% - Immature Granu locytes (promyelocytes, myelocytes and metamyelocytes) > 1% indicates that a LEFT SHIFT is Present. MCH (RBC) [Entitic mass] 28.2 pg 27.0-32.0 [facility] Nucleated RBC/100 WBC (Bld) [Ratio] 0 % 0-5 [facility] MCHC Auto (RBC) [Mass/Vol]Or dered By: Dr. Menendez on 03-02-2022 MCHC (RBC) [Mass/Vol] 33.7 g/dL 32-36 [facility] No Panel InformationOrdered By: Dr. Menendez on 03-02-2022 Estimated Creatinine Clearance Calc 153.90 ml/min [facility] Estimated GFR (MDRD) Amer 156 mL/min >60 [facility] Comment on above: GFR Calc Estimated GFR (MDRD) Non-Af Amer 129 mL/min >60 [facility] Comment on above: Non- GFR Calc Platelets bldOrdered By: Dr. Menendez on 03-02-2022 Platelets (Bld) [#/Vol] 371 10*3/uL 150-450 [facility] Serum or plasma calcium maritza urement (mass/volume)Ordered By: Dr. Menendez on 03-02-2022 Calcium [Mass/Vol] 9.2 mg/dL 8.5-10.1 [facility] Serum or plasma creatinine m easurement (mass/volume)Ordered By: Dr. Menendez on 03-02-2022 Creatinine [Mass/Vol] 0.77 mg/dL 0.70-1.30 [facility] Comment on above: The validity of the calculated GFR & GFRAA in patients over 70 years has not been determined. Clinical correlation is essential. Serum or plasma urea nitroge n measurement (mass/volume)Ordered By: Dr. Menendez on 03-02-2022 Urea nitrogen [Mass/Vol] 12 mg/dL 7-18 [facility] Thin prep Papanicolaou smear with manual screeningOrdered By: Dr. Menendez on 03-02-2022 Thin prep Papanicolaou smear with manual screening 5 5-15 [facility] Urinalysis, Completeon 03-02 BACTERIA Normal None Seen [facility] Comment on above: Order Comment: CLEAN CATCH Result Comment: Romy perales via OM: Ordered Performed By: #### L 501.9100, L505.5000 #### [facility] [address] [place], [address] BILIRUBIN URINE Normal Negative [facility] Comment on above: Order Comment: CLEAN CATCH Result Comment: Romy perales via OM: Ordered Performed By: #### L 501.9100, L505.5000 #### [facility] [address] [place], [address] Clarity (U) Normal Clear [facility] Comment on above: Order Comment: CLEAN CATCH Result Comment: Romy perales via OM: Ordered Performed By: #### L 501.9100, L505.5000 #### [facility] [address] [place], [address] Color (U) Normal Yellow [facility] Comment on above: Order Comment: CLEAN CATCH Result Comment: Canc elled via OM: MD Ordered Performed By: #### L 501.9100, L505.5000 #### [facility] [address] [place], [address] EPI,SQUAMOUS Normal 0-5 [facility] Comment on above: Order Comment: CLEAN CATCH Result Comment: Canc elled via OM: MD Ordered Performed By: #### L 501.9100, L505.5000 #### [facility] [address] [place], [address] GLUCOSE, UR Normal Normal [facility] Comment on above: Order Comment: CLEAN CATCH Result Comment: Canc elled via OM: MD Ordered Performed By: #### L 501.9100, L505.5000 #### [facility] [address] [place], [address] KETONE UR Normal Negative [facility] Comment on above: Order Comment: CLEAN CATCH Result Comment: Canc elled via OM: MD Ordered Performed By: #### L 501.9100, L505.5000 #### [facility] [address] [place], [address] LEUK ESTERASE Normal Negative [facility] Comment on above: Order Comment: CLEAN CATCH Result Comment: Canc elled via OM: MD Ordered Performed By: #### L 501.9100, L505.5000 #### [facility] [address] [place], [address] Mucus Ql (Urine sed) Normal [facility] Comment on above: Order Comment: CLEAN CATCH Result Comment: Canc elled via OM: MD Ordered Performed By: #### L 501.9100, L505.5000 #### [facility] [address] [place], [address] Nitrite Ql (U) Normal Negative [facility] Comment on above: Order Comment: CLEAN CATCH Result Comment: Canc elled via OM: MD Ordered Performed By: #### L 501.9100, L505.5000 #### [facility] [facility] [address] [place], [address] OCCULT BLOOD-UR Normal Negative [facility] Comment on above: Order Comment: CLEAN CATCH Result Comment: Canc elled via OM: MD Ordered Performed By: #### L 501.9100, L505.5000 #### [facility] [address] [place], [address] pH UR Normal 5.0 - 8.0 [facility] Comment on above: Order Comment: CLEAN CATCH Result Comment: Canc elled via OM: MD Ordered Performed By: #### L 501.9100, L505.5000 #### [facility] [address] [place], [address] PROT DIPSTX Normal Negative [facility] Comment on above: Order Comment: CLEAN CATCH Result Comment: Canc elled via OM: MD Ordered Performed By: #### L 501.9100, L505.5000 #### [facility] [address] [place], [address] RBC Normal 0-5 [facility] Comment on above: Order Comment: CLEAN CATCH Result Comment: Canc elled via OM: MD Ordered Performed By: #### L 501.9100, L505.5000 #### [facility] [address] [place], [address] SP.GR. DIPSTX Normal 1.002-1.030 [facility] Comment on above: Order Comment: CLEAN CATCH Result Comment: Canc elled via OM: MD Ordered Performed By: #### L 501.9100, L505.5000 #### [facility] [address] [place], [address] UR Preservative Normal [facility] Comment on above: Order Comment: CLEAN CATCH Result Comment: Canc elled via OM: MD Ordered Performed By: #### L 501.9100, L505.5000 #### [facility] [address] [place], [address] UROBILI Normal Normal [facility] Comment on above: Order Comment: CLEAN CATCH Result Comment: Canc elled via OM: MD Ordered Performed By: #### L 501.9100, L505.5000 #### [facility] [address] [place], [address] WBC Normal 0-5 [facility] Comment on above: Order Comment: CLEAN CATCH Result Comment: Canc elled via OM: MD Ordered Performed By: #### L 501.9100, L505.5000 #### [facility] [address] [place], [address] Urine Drug Screen (VISTA)on 03-02-2022 AMPHETAMINES Normal <1000 ng/mL [facility] Comment on above: Result Comment: Canc elled via OM: MD Ordered Performed By: #### L 501.9100, L505.5000 #### [facility] [address] [place], [address] BARBITIURATES Normal < 200 ng/mL [facility] Comment on above: Result Comment: Canc elled via OM: MD Ordered Performed By: #### L 501.9100, L505.5000 #### [facility] [address] [place], [address] BENZODIAZIPINE Normal < 200 ng/mL [facility] Comment on above: Result Comment: Canc elled via OM: MD Ordered Performed By: #### L 501.9100, L505.5000 #### [facility] [address] [place], [address] COCAINE Normal < 300 ng/mL [facility] Comment on above: Result Comment: Canc elled via OM: MD Ordered Performed By: #### L 501.9100, L505.5000 #### [facility] [address] [place], [address] DRUG CONFIRM Normal [facility] Comment on above: Result Comment: Canc elled via OM: MD Ordered Performed By: #### L 501.9100, L505.5000 #### [facility] [address] [place], [address] ECSTACY Normal < 500 ng/mL [facility] Comment on above: Result Comment: Canc elled via OM: MD Ordered Performed By: #### L 501.9100, L505.5000 #### [facility] [address] [place], [address] METHADONE Normal < 300 ng/mL [facility] Comment on above: Result Comment: Canc elled via OM: MD Ordered Performed By: #### L 501.9100, L505.5000 #### [facility] [address] [place], [address] OPIATES Normal < 300 ng/mL [facility] Comment on above: Result Comment: Canc elled via OM: MD Ordered Performed By: #### L 501.9100, L505.5000 #### [facility] [address] [place], [address] PCP Normal < 25 ng/mL [facility] Comment on above: Result Comment: Canc elled via OM: MD Ordered Performed By: #### L 501.9100, L505.5000 #### [facility] [address] [place], [address] THC Normal < 50 ng/mL [facility] Comment on above: Result Comment: Canc elled via OM: MD Ordered Performed By: #### L 501.9100, L505.5000 #### [facility] [address] [place], [address] VISTA UDS PH Normal [facility] Comment on above: Result Comment: Canc elled via OM: MD Ordered Performed By: #### L 501.9100, L505.5000 #### [facility] [address] [place], [address] Abdomen/Pelvis without Conto n 02-20-2022 Abdomen/Pelvis without Cont [facility] Imaging Services [address] [place] [address] Abdomen/Pelvis without Cont MR#: [id number] Acct: [id number] Name: BRYAN LUNDBERG Rep #: [id number] : 1995 M 26 From: Ashwini Iqbal PCP: EVELYN Phan Status: REG ER Study: Abdomen/Pelvis without Cont Date of Exam: 01/23 12/13 Exam# [id number] Ordering Dr: Chrissy Kramer MD STUDY: CT ABDOMEN AND PELVIS WITHOUT CONTRAST REASON FOR EXAM: Male, 26 years old. abd pain RADIATION DOSAGE (If Supplied By Facility): CTDIvol = ( 6.07 ) mGy, DLP = ( 298.87 ) mGycm TECHNIQUE: Transaxial images were obtained from the dome of the diaphragm to the symphysis pubis without oral contrast, and without intravenous contrast. Sagittal and coronal images were reconstructed. Individualized dose optimization techniques were used for this CT. COMPARISON: CT abdomen and pelvis 10/17/2017 FINDINGS: LOWER CHEST: Included lung bases are clear. LIVER: Grossly unremarkable. GALLBLADDER AND BILIARY TREE: Grossly unremarkable. PANCREAS: Grossly unremarkable. SPLEEN: Grossly unremarkable. ADRENAL GLANDS: Grossly unremarkable. KIDNEYS AND URETERS: No calculi demonstrated. No hydronephrosis. 2 small low attenuation structures in the left kidney, approximately 1.5 cm, and 1 cm, likely cysts but not completely characterized. PERITONEUM: No free air. No free fluid. BOWEL: No bowel obstruction. APPENDIX: Visualized and unremarkable. No evidence of acute appendicitis. VESSELS: Abdominal aorta is normal caliber. REPRODUCTIVE ORGANS: Grossly unremarkable URINARY BLADDER: Grossly unremarkable. ABDOMINAL WALL: Unremarkable. BONES: No acute abnormalities. CT/Abdomen/Pelvis without Cont IMPRESSION: No acute findings. Electronically Signed: Ashwini Marrero MD at 22:41 EST , CC: EVELYN Nicholson; Dr. Chrissy Kramer MD Edge Baster: Signed Normal [facility] Basic Metabolic Profile (BMP )on 02-20-2022 BUN/CRE 10.7 RATIO Normal 01-10 [facility] Comment on above: Performed By: #### L 100.0100, L500.2500, L500.3400, L501.2450 #### [facility] [address] [place], [address] CA,Total 10.3 mg/dL High 8.5-10.1 [facility] Comment on above: Performed By: #### L 100.0100, L500.2500, L500.3400, L501.2450 #### [facility] [address] [place], [address] Chloride [Moles/Vol] 90 mmol/L Low 98-107 [facility] Comment on above: Performed By: #### L 100.0100, L500.2500, L500.3400, L501.2450 #### [facility] [address] [place], [address] CO2 [Moles/Vol] 26.0 mmol/L Normal 21.0-32.0 [facility] Comment on above: Performed By: #### L 100.0100, L500.2500, L500.3400, L501.2450 #### [facility] [address] [place], [address] Creatinine [Mass/Vol] 4.31 mg/dL High 0.70-1.30 [facility] Comment on above: Result Comment: The validity of the calculated GFR GFRAA in patients over 70 years has not been determined. Clinical correlation is essential. Performed By: #### L 100.0100, L500.2500, L500.3400, L501.2450 #### [facility] [address] [place], [address] ECRCL 24.39 ml/min Normal [facility] Comment on above: Performed By: #### L 100.0100, L500.2500, L500.3400, L501.2450 #### [facility] [address] [place], [address] EST GFR - AA 22 mL/min Low >60 [facility] Comment on above: Result Comment: Afri can Citizen Of [place] GFR Calc Performed By: #### L 100.0100, L500.2500, L500.3400, L501.2450 #### [facility] [address] [place], [address] GAP 17 High 5-15 [facility] Comment on above: Performed By: #### L 100.0100, L500.2500, L500.3400, L501.2450 #### [facility] [address] [place], [address] GFR/1.73 sq M.predicted among non-blacks MDRD (S/P/Bld) [Vol rate/Area] 18 mL/min/{1.73_m2} Low >60 [facility] Comment on above: Result Comment: Non- GFR Calc Performed By: #### L 100.0100, L500.2500, L500.3400, L501.2450 #### [facility] [address] [place], [address] Glucose [Mass/Vol] 111 mg/dL High 74-106 [facility] Comment on above: Result Comment: Fast ing Glucose result from 100 to 125 mg/dL suggests IMPAIRED HOMEOSTASIS per A.D.A. criteria. Performed By: #### L 100.0100, L500.2500, L500.3400, L501.2450 #### [facility] [address] [place], [address] Potassium [Moles/Vol] 4.2 mmol/L Normal 3.5-5.1 [facility] Comment on above: Performed By: #### L 100.0100, L500.2500, L500.3400, L501.2450 #### [facility] [address] [place], [address] Sodium [Moles/Vol] 133 mmol/L Low 136-145 [facility] Comment on above: Performed By: #### L 100.0100, L500.2500, L500.3400, L501.2450 #### [facility] [address] [place], [address] Urea nitrogen [Mass/Vol] 46 mg/dL High 7-18 [facility] Comment on above: Performed By: #### L 100.0100, L500.2500, L500.3400, L501.2450 #### [facility] [address] [place], [address] CBC W/Diff, Automatedon -3 PATH REV Reviewed Normal [facility] Comment on above: Result Comment: Neut rophilic leukocytosis. Mild Thrombocytosis. Clinical correlation suggested. Aaron Oliveira D.O. 02/20/22 AMENDED REPORT 02/20/22 1221 PATH REV previously reported as: Lidia tapia Performed By: #### L 100.0100, L500.2500, L500.3400, L501.2450 #### [facility] [address] [place], [address] Emergency Department Summary on 02-20-2022 Emergency Department Summary [facility] Medical Records Department [address] [place] [address] Emergency Department Summary 02/19/22 MR#: [id number] Acct: [id number] Name: TAMIKABRYAN Rep #: [id number] : 1995 26 From: Chrissy Kramer MD PCP: EVELYN Phan Status:DEP ER Location: ED HPI History of Present Illness Chief Complaint: Abd Pain Informant: patient Onset/Context/Timing Onset: Yesterday Context: Gradual Onset Timing: Waxes and wanes Current Severity: Mild Maximum Severity: Moderate Narrative Narrative: Patient presents due to concerns for dehydration. He states he has epigastric abdominal pain with nausea and vomiting that started yesterday. He is had no diarrhea. He states he will get episodes like this about 3 times a year and thinks that he may have a ulcer. He is never seen a GI doctor or been scoped. He states he feels like he is getting muscle cramps and he feels very dehydrated. PFSH PFSH Medical History Asthma Tobacco abuse Home Medications NK 02/19/22 [History Last Taken Unknown] Allergy/AdvReac Type Severity Reaction Status Date / Time amoxicillin trihydrate Allergy Rash Verified 02/19/22 20:12 [From Augmentin] potassium clavulanate Allergy Rash Verified 02/19/22 20:12 [From Augmentin] Family History Brother Hemophilia Father Diabetes Surgical History History of tonsillectomy Social History Smoking Status: Current every day smoker tobacco type: cigarettes alcohol intake: current alcohol intake frequency: holidays/special occasions only substance use type: marijuana, heroin, opiates and other details: Fentanyl ROS ROS ED Constitutional Constitutional ED: Denies chills or fever(s) Eyes Eyes: Denies change in vision or discharge from eye(s) ENT ENT ED: Denies discharge from eye(s), rhinorrhea or sore throat Cardiovascular Cardiovascular: Denies chest pain or palpitations Respiratory/Chest Respiratory/Chest: Denies cough or dyspnea Gastrointestinal Gastrointestinal: Reports abdominal pain, nausea and vomiting; Denies diarrhea Genitourinary Genitourinary ED: Reports other Details: Decreased urine output ; Denies dysuria Musculoskeletal Musculoskeletal: Reports other Details: Muscle cramps ; Denies back pain or extremity pain Integumentary Denies Abrasions or rash Neurologic Neurologic: Denies headache(s) or weakness Psychiatric Psychiatric: Denies anxiety or depression Allergic/Immunologic Allergic/Immunologic ED: Denies lip swelling or urticaria EXAM Physical Exam Const Vital Signs: 02/19/22 20:08 Temperature 97.5 F L Temperature Source Temporal Pulse Rate 64 Respiratory Rate 16 Blood Pressure 137/94 H Blood Pressure Mean 108 Pulse Ox 98 Oxygen Delivery Method Room Air Positive well nourished and well developed General Appearance ED: well developed HEENT Reports normocephalic and head/scalp atraumatic Eyes PERRL and EOMs intact bilaterally Neck supple Chest Wall inspection of chest normal and palpation of chest normal Resp normal respiratory effort and clear to auscultation bilaterally Cardio regular rate and regular rhythm GI GI Narrative: Mild epigastric tenderness palpation. No guarding or rebound. Hypoactive but present bowel sounds are noted. Palpation: soft Extremity normal to inspection Neuro oriented x3 and no sensory deficits noted Sensorium / Orientation: alert Motor Exam: strength 5/5 throughout Psych mental status grossly normal Skin no rashes or lesions noted MDM MDM MDM Narrative Medical decision making narrative: Patient given IV fluids and Zofran. A dose of Protonix is ordered. Lab work obtained. Lab Data Attestation: I reviewed the patient's lab results. Labs: Laboratory Results - last 24 hr 02/19/22 02/19/22 21:06 21:06 WBC 16.8 H RBC 6.49 H Hgb 18.2 H* Hct 52.4 MCV 80.7 MCH 28.0 MCHC 34.7 RDW Std Deviation 39.6 RDW Coeff of Cecilio 13.9 Plt Count 482 H MPV 9.2 Immature Gran % (Auto) 0.500 Neut % (Auto) 75.6 H Lymph % (Auto) 14.5 L [place] % (Auto) 9.1 Eos % (Auto) 0.1 Baso % (Auto) 0.2 Absolute Neuts (auto) 12.7 H Absolute Lymphs (auto) 2.43 Nucleated RBC % 0 Differential Comment SCANNED Diff Path Review May foll Sodium 133 L Potassium 4.2 Chloride 90 L Carbon Dioxide 26.0 Anion Gap 17 H BUN 46 H Creatinine 4.31 H Estim Creat Clear Calc 24.39 Est GFR (MDRD) Af Amer 22 L Est GFR (MDRD) Non-Af 18 L BUN/Creatinine Ratio 10.7 Glucose 111 H Calcium 10 (more content not included)... Normal [facility] Lipaseon 02-20-2022 Lipase [Catalytic activity/Vol] 215 U/L Normal 73-393 [facility] Comment on above: Performed By: #### L 501.9100, L505.5000 #### [facility] [address] [place], [address] Liver Profileon 02-20-2022 Albumin [Mass/Vol] 6.0 g/dL High 3.2-5.0 [facility] Comment on above: Performed By: #### L 501.9100, L505.5000 #### [facility] [address] [place], [address] ALK P 137 U/L High 45-117 [facility] Comment on above: Performed By: #### L 501.9100, L505.5000 #### [facility] [address] [place], [address] ALT [Catalytic activity/Vol] 33 U/L Normal 16-61 [facility] Comment on above: Performed By: #### L 501.9100, L505.5000 #### [facility] [address] [place], [address] AST [Catalytic activity/Vol] 35 U/L Normal 15-37 [facility] Comment on above: Performed By: #### L 501.9100, L505.5000 #### [facility] [address] [place], [address] Bilirubin [Mass/Vol] 1.70 mg/dL High 0.20-1.00 [facility] Comment on above: Result Comment: For patients on eltrombopag therapy, use of Dimension [place] TBIL is not recommended. Performed By: #### L 501.9100, L505.5000 #### [facility] [address] [place], [address] Bilirubin.direct [Mass/Vol] 0.29 mg/dL Normal 0.00-0.30 [facility] Comment on above: Performed By: #### L 501.9100, [id number] #### [facility] [address] [place], [address] Globulin (S) [Mass/Vol] 4.5 g/dL High 2.2-4.2 [facility] Comment on above: Performed By: #### L 501.9100, [id number] #### [facility] [address] [place], [address] T PROT 10.5 g/dL High 6.4-8.2 [facility] Comment on above: Performed By: #### L 501.9100, [id number] #### [facility] [address] [place] [place], [address] Absolute lymphocyte countOrd ered By: Dr. Kramer on 02-19-2022 Lymphocytes Auto (Unsp spec) [#/Vol] 2.43 10*3/uL 0.83-4.51 [facility] Basophil percentageOrdered B y: Dr. Kramer on 02-19-2022 Basophils/100 WBC (Bld) 0.2 % 0-1 [facility] Bilirubin [Mass/Vol] 1.70 mg/dL 0.20-1.00 [facility] Comment on above: For patients on eltr ombopag therapy, use of Dimension [place] TBIL is not recommended. Chloride [Moles/Vol] 90 mmol/L 98-107 [facility] Eosinophils/100 WBC (Bld) 0.1 % 0-5 [facility] Glucose [Mass/Vol] 111 mg/dL 74-106 [facility] Comment on above: Fasting Glucose resu lt from 100 to 125 mg/dL suggests IMPAIRED HOMEOSTASIS per A.D.A. criteria. Neutrophils (Bld) [#/Vol] 12.7 10*3/uL 2.0-7.7 [facility] Neutrophils/100 WBC (Bld) 75.6 % 47-70 [facility] Potassium [Moles/Vol] 4.2 mmol/L 3.5-5.1 [facility] Protein [Mass/Vol] 10.5 g/dL 6.4-8.2 [facility] Sodium [Moles/Vol] 133 mmol/L 136-145 [facility] WBC (Bld) [#/Vol] 16.8 10*3/uL 4.4-11.0 [facility] Blood erythrocytes count (nu mber/volume)Ordered By: Dr. Kramer on 02-19-2022 RBC (Bld) [#/Vol] 6.49 10*6/uL 4.6-6.2 [facility] Blood hemoglobin measurement (mass/volume)Ordered By: Dr. Kramer on 02-19-2022 Hemoglobin (Bld) [Mass/Vol] 18.2 g/dL 13.0-16.5 [facility] Comment on above: CRITICAL VALUE VERIF IED. CALLED TO [id number] Cindi Wallace.RESULTS READ BACK BY SAME . Blood lymphocytes/100 leukoc ytesOrdered By: Dr. Kramer on 02-19-2022 Lymphocytes/100 WBC (Bld) 14.5 % 19-41 [facility] Blood manual differential co mment interpretation (narrative result)Ordered By: Dr. Kramer on 02-19-2022 Manual differential comment Stephane (Bld) [Interp] SCANNED [facility] Comment on above: MONOCYTOSIS NOTED Blood monocytes/100 leukocyt esOrdered By: Dr. Kramer on 02-19-2022 Monocytes/100 WBC (Bld) 9.1 % 0-10 [facility] Blood platelet mean volumeOr dered By: Dr. Kramer on 02-19-2022 Platelet mean volume (Bld) [Entitic vol] 9.2 fL 6.2-12.0 [facility] Determination of erythrocyte mean corpuscular volume (MCV)Ordered By: Dr. Kramer on 02-19-2022 MCV (RBC) [Entitic vol] 80.7 fL 80-94 [facility] Direct bilirubinOrdered By: Dr. Kramer on 02-19-2022 Bilirubin.direct [Mass/Vol] 0.29 mg/dL 0.00-0.30 [facility] Hematocrit Auto (Bld) [Volum e fraction]Ordered By: Dr. Kramer on 02-19-2022 Hematocrit (Bld) [Volume fraction] 52.4 % 40-54 [facility] - Chemistry and C hemistry - challengeOrdered By: Dr. Kramer on 02-19-2022 ALP [Catalytic activity/Vol] 137 U/L 45-117 [facility] ALT [Catalytic activity/Vol] 33 U/L 16-61 [facility] CO2 [Moles/Vol] 26.0 mmol/L 21.0-32.0 [facility] Globulin (S) [Mass/Vol] 4.5 g/dL 2.2-4.2 [facility] Lipase [Catalytic activity/Vol] 215 U/L 73-393 [facility] Urea nitrogen/Creatinine [Mass ratio] 10.7 mg/mg 10-20 [facility] - Hematology and Cell countsOrdered By: Dr. Kramer on 02-19-2022 Erythrocyte distribution width (RBC) [Entitic vol] 39.6 fL 35.1-43.9 [facility] Erythrocyte distribution width (RBC) [Ratio] 13.9 % 11.6-14.6 [facility] Immature granulocytes/100 WBC (Bld) 0.500 % 0.0-0.9 [facility] Comment on above: IG% - Immature Granu locytes (promyelocytes, myelocytes and metamyelocytes) > 1% indicates that a LEFT SHIFT is Present. MCH (RBC) [Entitic mass] 28.0 pg 27.0-32.0 [facility] Nucleated RBC/100 WBC (Bld) [Ratio] 0 % 0-5 [facility] MCHC Auto (RBC) [Mass/Vol]Or dered By: Dr. Kramer on 02-19-2022 MCHC (RBC) [Mass/Vol] 34.7 g/dL 32-36 [facility] No Panel InformationOrdered By: Dr. Kramer on 02-19-2022 Estimated Creatinine Clearance Calc 24.39 ml/min [facility] Estimated GFR (MDRD) Amer 22 mL/min >60 [facility] Comment on above: GFR Calc Estimated GFR (MDRD) Non-Af Amer 18 mL/min >60 [facility] Comment on above: Non- GFR Calc Platelets bldOrdered By: Dr. Kramer on 02-19-2022 Platelets (Bld) [#/Vol] 482 10*3/uL 150-450 [facility] Review by pathologiston 01-23 Pathologist review Stephane (Unsp spec) [Interp] Lidia tapia [facility] Work Phone: Review by pathologistOrdered By: Dr. Kramer on 02-19-2022 Pathologist review Stephane (Unsp spec) [Interp] Reviewed [facility] Comment on above: Previous reported re sult: Lidia willie Edited by: RGOKEIRA on 02/20/22:1221Neutrophilic leukocytosis.Mild Thrombocytosis.Clinical correlation suggested.Aaron Oliveira D.O. 02/20/22 AMENDED REPORT 02/20/22 1221 PATH REV previously reported as: Lidia tapia Serum or plasma albumin maritza urement (mass/volume)Ordered By: Dr. Kramer on 02-19-2022 Albumin [Mass/Vol] 6.0 g/dL 3.2-5.0 [facility] Serum or plasma calcium maritza urement (mass/volume)Ordered By: Dr. Kramer on 02-19-2022 Calcium [Mass/Vol] 10.3 mg/dL 8.5-10.1 [facility] Serum or plasma creatinine m easurement (mass/volume)Ordered By: Dr. Kramer on 02-19-2022 Creatinine [Mass/Vol] 4.31 mg/dL 0.70-1.30 [facility] Comment on above: The validity of the calculated GFR & GFRAA in patients over 70 years has not been determined. Clinical correlation is essential. Serum or plasma urea nitroge n measurement (mass/volume)Ordered By: Dr. Kramer on 02-19-2022 Urea nitrogen [Mass/Vol] 46 mg/dL 7-18 [facility] Thin prep Papanicolaou smear with manual screeningOrdered By: Dr. Kramer on 02-19-2022 Thin prep Papanicolaou smear with manual screening 35 U/L 15-37 [facility] Thin prep Papanicolaou smear with manual screening 17 5-15 [facility] Vital Signs Date Time Vital Sign Value Performing Clinician Facility 05-02-2023 18:03-0500 Body temperature 97.7 [degF] Minor Ghosh RESIDENTIAL ELECTRICIAN.CONSTRUCTION MANAGER Work Phone: [facility] 05-02-2023 18:03-0500 Body weight 79.83 kg Minor Ghosh RESIDENTIAL ELECTRICIAN.CONSTRUCTION MANAGER Work Phone: [facility] 05-02-2023 18:03-0500 Diastolic blood pressure 96 mm[Hg] Minor Ghosh RESIDENTIAL ELECTRICIAN.CONSTRUCTION MANAGER Work Phone: [facility] 05-02-2023 18:03-0500 Heart rate 121 /min Minor Ghosh RESIDENTIAL ELECTRICIAN.CONSTRUCTION MANAGER Work Phone: [facility] 05-02-2023 18:03-0500 Respiratory rate 20 /min Minor Ghosh RESIDENTIAL ELECTRICIAN.CONSTRUCTION MANAGER Work Phone: [facility] 05-02-2023 18:03-0500 SaO2% (BldA) [Mass fraction] 98 % Minor Ghosh RESIDENTIAL ELECTRICIAN.CONSTRUCTION MANAGER Work Phone: [facility] 05-02-2023 18:03-0500 Systolic blood pressure 134 mm[Hg] Minor Ghosh RESIDENTIAL ELECTRICIAN.CONSTRUCTION MANAGER Work Phone: [facility] 11-04-2022 13:38-0400 Body weight 79.83 kg NA Nicholson PA-C Work Phone: [facility] 11-04-2022 13:38-0400 Diastolic blood pressure 68 mm[Hg] NA Nicholson PA-C Work Phone: [facility] 11-04-2022 13:38-0400 Heart rate 98 /min NA Nicholson PA-C Work Phone: [facility] 11-04-2022 13:38-0400 Respiratory rate 18 /min NA Nicholson PA-C Work Phone: [facility] 11-04-2022 13:38-0400 SaO2% (BldA) [Mass fraction] 96 % NA Nicholson PA-C Work Phone: [facility] 11-04-2022 13:38-0400 Systolic blood pressure 132 mm[Hg] NA Nicholson PA-C Work Phone: [facility] 09-17-2022 13:45-0400 Body temperature 99.7 [degF] PA NA Nicholson PA Work Phone: [facility] 09-17-2022 13:45-0400 Diastolic blood pressure 76 mm[Hg] PA NA Nicholson PA Work Phone: [facility] 09-17-2022 13:45-0400 Heart rate 79 /min PA NA Nicholson PA Work Phone: [facility] 09-17-2022 13:45-0400 Respiratory rate 18 /min PA NA Nicholson PA Work Phone: [facility] 09-17-2022 13:45-0400 SaO2% (BldA) [Mass fraction] 97 % PA NA Nicholson PA Work Phone: [facility] 09-17-2022 13:45-0400 Systolic blood pressure 132 mm[Hg] PA NA Nicholson PA Work Phone: [facility] 09-15-2022 11:08-0400 Body height 187.96 cm PA NA Nicholson PA Work Phone: [facility] 09-15-2022 11:08-0400 Body weight 76.2 kg PA NA Nicholson PA Work Phone: [facility] 09-15-2022 00:03-0400 Body height 187.96 cm [facility] 09-15-2022 00:03-0400 Body mass index (BMI) [Ratio] 21.5 kg/m2 [facility] 09-15-2022 00:03-0400 Body weight 76.2 kg [facility] 09-14-2022 23:53-0400 Body temperature 98.5 [degF] [facility] 09-14-2022 23:53-0400 Diastolic blood pressure 91 mm[Hg] [facility] 09-14-2022 23:53-0400 Heart rate 94 /min [facility] 09-14-2022 23:53-0400 Respiratory rate 16 /min [facility] 09-14-2022 23:53-0400 SaO2% (BldA) [Mass fraction] 98 % [facility] 09-14-2022 23:53-0400 Systolic blood pressure 138 mm[Hg] [facility] 05-01-2022 22:44-0500 Diastolic blood pressure 94 mm[Hg] PA NA Nicholson PA Work Phone: 6(664)219-311161 [place] [address] 05-01-2022 22:44-0500 Heart rate 110 /min PA NA Nicholson PA Work Phone: 0(079)247-291677 [place] [address] 05-01-2022 22:44-0500 SaO2% (BldA) [Mass fraction] 98 % PA NA Nicholson PA Work Phone: 1(796)032-144777 [place] [address] 05-01-2022 22:44-0500 Systolic blood pressure 134 mm[Hg] PA NA Nicholson PA Work Phone: [facility] 05-01-2022 18:55-0500 Body height 187.96 cm PA NA Nicholson PA Work Phone: 2(348)706-532877 [place] [address] 05-01-2022 18:55-0500 Body mass index (BMI) [Ratio] 21.2 kg/m2 PA NA Nicholson PA Work Phone: 7(826)051-670877 [place] [address] 05-01-2022 18:55-0500 Body temperature 97.4 [degF] PA NA Nicholson PA Work Phone: 7(218)530-082577 [place] [address] 05-01-2022 18:55-0500 Body weight 74.84 kg PA NA Nicholson PA Work Phone: [facility] 05-01-2022 18:55-0500 Respiratory rate 24 /min PA NA Nicholson PA Work Phone: [facility] 04-25-2022 11:30-0500 Body temperature 97.7 [degF] PA NA Nicholson PA Work Phone: [facility] 04-25-2022 11:30-0500 Diastolic blood pressure 85 mm[Hg] PA NA Nicholson PA Work Phone: 6(932)229-351577 [place] [address] 04-25-2022 11:30-0500 Heart rate 97 /min PA NA Nicholson PA Work Phone: 5(491)121-318677 [place] [address] 04-25-2022 11:30-0500 Respiratory rate 18 /min PA NA Nicholson PA Work Phone: 0(045)606-244702 [place] [address] 04-25-2022 11:30-0500 SaO2% (BldA) [Mass fraction] 97 % PA NA Nicholson PA Work Phone: 3(535)875-972077 [place] [address] 04-25-2022 11:30-0500 Systolic blood pressure 119 mm[Hg] PA NA Nicholson PA Work Phone: 0(994)812-876577 [place] [address] 04-24-2022 14:31-0500 Body height 187.96 cm PA NA Nicholson PA Work Phone: 2(878)085-219402 [place] [address] 04-24-2022 14:31-0500 Body weight 68.94 kg PA NA Nicholson PA Work Phone: 4(100)358-169402 [place] [address] 04-23-2022 23:52-0500 Body mass index (BMI) [Ratio] 19.5 kg/m2 PA NA Nicholson PA Work Phone: 2(171)268-823202 [place] [address] 04-23-2022 23:42-0500 Body temperature 98 [degF] PA NA Nicholson PA Work Phone: 9(627)075-384902 [place] [address] 04-23-2022 23:42-0500 Diastolic blood pressure 95 mm[Hg] PA NA Nicholson PA Work Phone: 6(571)984-688402 [place] [address] 04-23-2022 23:42-0500 Heart rate 86 /min PA NA Nicholson PA Work Phone: 1(203)108-894902 [place] [address] 04-23-2022 23:42-0500 Respiratory rate 18 /min PA NA Nicholson PA Work Phone: 4(183)195-774177 [place] [address] 04-23-2022 23:42-0500 SaO2% (BldA) [Mass fraction] 100 % PA NA Nicholson PA Work Phone: [facility] 04-23-2022 23:42-0500 Systolic blood pressure 159 mm[Hg] PA NA Nicholson PA Work Phone: [facility] 04-23-2022 18:52-0500 Body height 185.42 cm PA NA Nicholson PA Work Phone: [facility] 04-23-2022 18:52-0500 Body mass index (BMI) [Ratio] 20.6 kg/m2 PA NA Nicholson PA Work Phone: [facility] 04-23-2022 18:52-0500 Body weight 70.9 kg PA NA Nicholson PA Work Phone: [facility] 03-02-2022 09:22-0500 Diastolic blood pressure 90 mm[Hg] [facility] 03-02-2022 09:22-0500 Heart rate 105 /min [facility] 03-02-2022 09:22-0500 Respiratory rate 16 /min [facility] 03-02-2022 09:22-0500 SaO2% (BldA) [Mass fraction] 98 % [facility] 03-02-2022 09:22-0500 Systolic blood pressure 138 mm[Hg] [facility] 03-02-2022 08:02-0500 Body temperature 98.7 [degF] [facility] 03-02-2022 08:01-0500 Body height 185.42 cm [facility] Work Phone: 03-02-2022 08:01-0500 Body mass index (BMI) [Ratio] 21.7 kg/m2 [facility] 03-02-2022 08:01-0500 Body weight 74.84 kg [facility] 02-19-2022 20:08-0500 Body height 185.42 cm [facility] Work Phone: 02-19-2022 20:08-0500 Body mass index (BMI) [Ratio] 19.3 kg/m2 [facility] 02-19-2022 20:08-0500 Body temperature 97.5 [degF] [facility] 02-19-2022 20:08-0500 Body weight 66.39 kg [facility] 02-19-2022 20:08-0500 Diastolic blood pressure 94 mm[Hg] [facility] 02-19-2022 20:08-0500 Heart rate 64 /min [facility] 02-19-2022 20:08-0500 Respiratory rate 16 /min [facility] 02-19-2022 20:08-0500 SaO2% (BldA) [Mass fraction] 98 % [facility] 02-19-2022 20:08-0500 Systolic blood pressure 137 mm[Hg] [facility] 06-28-2021 16:35-0400 Body temperature 98.01 [degF] NA Nicholson PA-C Work Phone: [facility] 06-28-2021 16:35-0400 Body weight 80.29 kg NA Nicholson PA-C Work Phone: [facility] 06-28-2021 16:35-0400 Diastolic blood pressure 60 mm[Hg] NA Nicholson PA-C Work Phone: [facility] 06-28-2021 16:35-0400 Heart rate 86 /min NA Nicholson PA-C Work Phone: [facility] 06-28-2021 16:35-0400 Respiratory rate 18 /min NA Nicholson PA-C Work Phone: [facility] 06-28-2021 16:35-0400 Systolic blood pressure 118 mm[Hg] NA Nicholson PA-C Work Phone: [facility] Encounters Encounter Date Encounter Type Care Provider Facility Start: 05-02-2023 End: 05-02-2023 ambulatory Stacy NICHOLSON Facility:[facility] Start: 05-02-2023 End: 05-02-2023 Patient encounter procedure Minor Ghosh RESIDENTIAL ELECTRICIAN.CONSTRUCTION MANAGER Work Phone: [facility] Comment on above: Pain, dental (Primar y Dx) Start: 12-27-2022 ambulatory Stacy Amaya ty:[facility] Start: 12-27-2022 End: 12-28-2022 Evaluation and management of inpatient Yudelka Hernandez Facility:[facility] Start: 11-04-2022 End: 11-05-2022 ambulatory Stacy NICHOLSON Facility:[facility] Start: 11-04-2022 End: 11-04-2022 Patient encounter procedure Stacy Nicholson PA-C Work Phone: [facility] Comment on above: Heroin abuse (HCC) ( Primary Dx); Generalized anxiety disorder Start: 09-16-2022 Non-patient / Non-visit PA CHAY Dickinsonon PA Work Phone: [facility] Start: 09-15-2022 Non-patient / Non-visit PA NA Nicholson PA Work Phone: [facility] Start: 09-15-2022 ambulatory [place] Elias y:[facility] Start: 09-15-2022 End: 09-17-2022 Evaluation and management of inpatient Xander Olivera Facility:[facility] Start: 09-15-2022 End: 09-17-2022 Evaluation and management of inpatient [facility] Start: 05-23-2022 End: 05-24-2022 ambulatory Stacy NICHOLSON Facility:[facility] Start: 05-01-2022 End: 05-02-2022 Emergency department patient visit Stacy Nicholson Facility:[facility] Start: 05-01-2022 End: 05-02-2022 Emergency department patient visit PA CHAY Nicholson PA Work Phone: [facility] Start: 04-25-2022 Non-patient / Non-visit PA NA Nicholson PA Work Phone: [facility] Start: 04-24-2022 Non-patient / Non-visit PA NA Nicholson PA Work Phone: [facility] Start: 04-24-2022 ambulatory Stacy Amaya ty:[facility] Start: 04-24-2022 End: 04-25-2022 Evaluation and management of inpatient Henrietta Candis Facility:[facility] Start: 04-23-2022 Non-patient / Non-visit EVELYN RIVAS Work Phone: [facility] [facility] Start: 04-23-2022 End: 04-25-2022 Evaluation and management of inpatient PA CHAY RIVAS Work Phone: [facility] Start: 03-02-2022 End: 03-02-2022 Emergency department patient visit Boston Danielsongermania Facility:[facility] Start: 03-02-2022 End: 03-02-2022 Emergency department patient visit [facility] Start: 02-19-2022 End: 02-20-2022 Emergency department patient visit Chrissygertrude Kramer Facility:[facility] Start: 02-19-2022 End: 02-20-2022 Emergency department patient visit [facility] Start: 06-28-2021 End: 06-28-2021 Patient encounter procedure M Wilson Nicholson PA-C Work Phone: [facility] [place] Comment on above: Adjustment disorder with mixed anxiety and depressed mood (Primary Dx); Generalized anxiety disorder; Heroin abuse (HCC); Mild intermittent asthma with acute exacerbation; Herpetic lesions of face Procedures Date Procedure Procedure Detail Performing Clinician Start: 05-01-2022 Plain chest X-ray EVELYN RIVAS Work Phone: Start: 04-24-2022 Computed tomography of abdomen and pelvis with intravenous contrast EVELYN RIVAS Work Phone: Start: 02-19-2022 CT of abdomen and pe lvis without contrast Start: 01-06-2018 Adult depression scr eening assessment CHAY Nicholson PA-C Work Phone: Plan of Treatment Date Care Activity Detail Author Start: 11-05-2023 ANNUAL PCP TEAM RETAIL MERCHANDISING MANAGER JOE DISEASE VISIT ANNUAL PCP TEAM CHRONIC DISEASE VISIT [facility] Start: 11-05-2023 COVID-19 VACCINE (#1) COVID-19 VACCI NE (#1) [facility] Comment on above: Postponed from 04/17 (Declined at this time) Start: 03-24-2023 Depression Assessment Depression Ass essment [facility] Start: 11-22-2022 Influenza vaccination C [facility] Start: 09-17-2022 Patient discharge [facility] Start: 09-16-2022 [facility] Start: 09-15-2022 Assessment using assessment scale [facility] Start: 09-15-2022 Ambulation without limitation [facility] Start: 09-15-2022 Assessment of risk o f venous thromboembolism [facility] Start: 09-15-2022 Insertion of cathete r into peripheral vein [facility] Start: 09-15-2022 Oxygen therapy [facility] Start: 09-15-2022 Providing care accor ding to standard [facility] Start: 09-15-2022 Referral to service [facility] Start: 09-15-2022 End: 09-15-2022 [facility] Start: 09-15-2022 Verification routine [facility] Start: 09-15-2022 Admission procedure [facility] Start: 09-15-2022 Following clinical p athway protocol [facility] Start: 09-15-2022 Patient referral to dietitian [facility] Start: 06-28-2022 ANNUAL PCP TEAM RETAIL MERCHANDISING MANAGER JOE DISEASE VISIT ANNUAL PCP TEAM CHRONIC DISEASE VISIT [facility] Start: 04-25-2022 Patient discharge [facility] Start: 04-24-2022 Assessment using assessment scale [facility] Start: 04-24-2022 [facility] Start: 04-24-2022 Following clinical p athway protocol [facility] Start: 04-23-2022 Assessment of risk o f venous thromboembolism [facility] Start: 04-23-2022 Notification of physician [facility] Start: 04-23-2022 Providing care accor ding to standard [facility] Start: 04-23-2022 Provision of activit y privileges [facility] Start: 04-23-2022 Vital signs measurements [facility] Start: 04-23-2022 [facility] Start: 04-23-2022 Admission procedure [facility] Start: 04-23-2022 Patient referral to dietitian [facility] Start: 03-24-2022 DEPRESSION ASSESSMENT DEPRESSION ASS ESSMENT [facility] Start: 11-22-2021 Influenza vaccination INFLUENZ A (Season Ended) [facility] Start: 01-06-2019 Adult depression scr eening assessment DEPRESSION SCREENING [facility] Start: 08-26-2017 Urine microalbumin profile [facility] Start: 10-15-2014 ONE PNEUMOVAX PRIOR TO AGE 65 ONE PNEUMOVAX PRIOR TO AGE 65 [facility] Start: 10-15-2013 HEPATITIS C SCREENING HEPATITIS C SC REENING [facility] Start: 10-15-2013 HIV SCREENING HIV SCREENING [facility] Start: 10-15-2013 SPIROMETRY SPIROMETRY [facility] Start: 10-15-2009 PEDS TO ADULT TRANSI TION ANNUAL ASSESSMENT PEDS TO ADULT TRANSITION ANNUAL ASSESSMENT [facility] Start: 2007 PEDS TO ADULT TRANSI TION INITIAL DISCUSSION PEDS TO ADULT TRANSITION INITIAL DISCUSSION [facility] Start: 10-15-2006 HPV VACCINE (1 - Mal e 2-dose series) HPV VACCINE (1 - Male 2-dose series) [facility] Start: 10-15-2001 PNEUMOCOCCAL (1 - PCV) PNEUMOCOCCAL (1 - PCV) [facility] Start: 10-15-2001 Pneumococcal vaccination Pneum ococcal Vaccine (1 of 2 - PCV) [facility] Start: 10-15-2000 COVID-19 VACCINE (1) COVID-19 VACCIN E (1) [facility] Patient Education [facility] Work Phone: Patient referral [facility] Work Phone: [facility] Immunizations Immunization Date Immunization Notes Care Provider Brandon nguyen 01-06-2018 influenza virus vacc ine, unspecified formulation Minor Ghosh RESIDENTIAL ELECTRICIAN.CONSTRUCTION MANAGER Work Phone: [facility] 01-25-2014 meningococcal polysaccharide (groups A, C, Y and W-135) diphtheria toxoid conjugate vaccine (MCV4P) CHAY Nicholson PA-C Work Phone: [facility] Work Phone: 10-20-2008 hepatitis A vaccine, unspecified formulation CHAY RIVAS-Monika Work Phone: [facility] Work Phone: 08-27-2007 Meningococcal, MCV4, unspecified conjugate formulation(groups A, C, Y and W-135) Nicholson PA-C Work Phone: [facility] Work Phone: 08-27-2007 tetanus toxoid, redu chuck diphtheria toxoid, and acellular pertussis vaccine, adsorbed Nicholson PA-C Work Phone: [facility] Work Phone: 02-09-2007 influenza virus vacc ine, unspecified formulation NA Nicholson PA-C Work Phone: [facility] Work Phone: 03-04-2003 influenza virus vacc ine, unspecified formulation [facility] Work Phone: [facility] Work Phone: 12-25-2000 diphtheria, tetanus toxoids and acellular pertussis vaccine [facility] PA-C Work Phone: [facility] Work Phone: 12-25-2000 measles, mumps and rubella virus vaccine NA Nicholson PA-C Work Phone: [facility] Work Phone: 12-25-2000 poliovirus vaccine, inactivated [facility] Work Phone: [facility] Work Phone: 02-20-2000 pneumococcal conjuga te vaccine, 7 valent [facility] Work Phone: [facility] Work Phone: 04-24-1999 Chicken Pox (disease) Nickolas thornton [facility] Work Phone: [facility] Work Phone: 02-09-1997 diphtheria, tetanus toxoids and acellular pertussis vaccine NA Nicholson PA-C Work Phone: [facility] Work Phone: 02-09-1997 haemophilus influenz ae type b vaccine, PRP-D conjugate Nicholson PA-C Work Phone: [facility] Work Phone: 02-09-1997 varicella virus vaccine NA B arton PA-C Work Phone: [facility] Work Phone: 10-28-1996 measles, mumps and rubella virus vaccine NA Nicholson PA-C Work Phone: [facility] Work Phone: 10-28-1996 trivalent poliovirus vaccine, live, oral NA Nicholson PA-C Work Phone: [facility] Work Phone: 06-17-1996 DTP-Haemophilus influenzae type b conjugate vaccine Minor Ghosh APRN.CONSTRUCTION MANAGER Work Phone: [facility] Work Phone: 06-17-1996 hepatitis B vaccine, pediatric or pediatric/adolescent dosage NA Nicholson PA-C Work Phone: [facility] Work Phone: 06-17-1996 Tetramune NA Nicholson PA-C Work Phone: [facility] Work Phone: 02-17-1996 DTP-Haemophilus influenzae type b conjugate vaccine Minor Ghosh RESIDENTIAL ELECTRICIAN.CONSTRUCTION MANAGER Work Phone: [facility] Work Phone: 02-17-1996 poliovirus vaccine, inactivated NA Nicholson PA-C Work Phone: [facility] Work Phone: 02-17-1996 Tetramune NA Nicholson PA-C Work Phone: [facility] Work Phone: 1995 DTP-Haemophilus influenzae type b conjugate vaccine Minor Ghosh APRN.CONSTRUCTION MANAGER Work Phone: [facility] Work Phone: 1995 hepatitis B vaccine, pediatric or pediatric/adolescent dosage NA Nicholson PA-C Work Phone: [facility] Work Phone: 1995 poliovirus vaccine, inactivated NA Nicholson PA-Monika Work Phone: [facility] Work Phone: 1995 Tetramune CHAY Nicholson PA-C Work Phone: [facility] Work Phone: 1995 hepatitis B vaccine, pediatric or pediatric/adolescent dosage CHAY Nicholson PA-C Work Phone: [facility] Work Phone: Payers Date Payer Category Payer Medicaid [facility] [id number] 2022-Present [phone] [address] [place] [address] Medicaid [id number] 2022 Medicaid [id number] 2022 Self-pay [id number] 2010 Unknown ANTHEM BLUE CARD PPO OOS [id number] 2010-Present [phone] [address] [place] [address] PPO [id number] Unknown ANTHEM [id number] Unknown [id number] Unknown [id number] Unknown [id number] Unknown [id number] Unknown [id number] Unknown [id number] Unknown [id number] Unknown [id number] Unknown [id number] Unknown [id number] Unknown [id number] Unknown [id number] Unknown [id number] Unknown [id number] Unknown [id number] Social History Date Type Detail Facility Start[facility]04[facility] Start: 06-28-2021 End: 05-02-2023 Alcohol intake Current non-drinker of alcohol (finding) [facility] Start: 01-06-2018 End: 11-04-2022 Tobacco Comment vapes [facility] Start: 1995 Sex Assigned At Not on file [facility] Start: 06-18-2021 End: 06-28-2021 Exposure to SARS-CoV-2 (event) Not sure [facility] Start: 02-19-2022 End: 09-15-2022 Tobacco smoking status NHIS Unknown if ever smoked [facility] Start: 10-12-2019 None [place] [facility] Start: 05-21-2020 Cigarettes [facility] Start: 1995 Sex Assigned At Male W [facility] Start: 11-04-2022 Tobacco use and exposure Smokeless tobacco non-user [facility] Start: 11-04-2022 End: 02-04-2023 History of Social function [facility] Start: 11-04-2022 End: 02-04-2023 Tobacco use panel [facility] Adult Depression Screening Assessment 6 [facility] Goals Date Patient Goal Desired Activity /State Functional Status Date Assessment Result Facility 09-17-2022 Functional status Ambulates;Up a d heather;Chair;Bathroom Privilege;Active Range of Motion [facility] Work Phone: 04-25-2022 Functional status Chair [facility] Work Phone: Mental Status Date Assessment Result Facility 09-16-2022 Cognitive function Voice/Name [place] [facility] Work Phone: 04-25-2022 Cognitive function Appropriate;Cooperativ e [facility] Work Phone: Clinical Notes 06-28-2021 to 05-02-2023 Minor Ghosh APRN.CONSTRUCTION MANAGER - 05/02/2023 6:08 PM Stacy Bowser PA-C - 11/04/2022 1:53 PM EDT Note Date & Type Note Facility 05-02-2023 Note HNO ID: [id number] Author: MINOR GHOSH APRN.ROHAN Service: ? Author Type: Nurse Practitioner Type: Progress Notes Filed: 05/02/2023 18:22 Note Text: This note was created using NoteWriter. Subjective Bryan Lundberg is a 27 year old male. 27 year old male with PMH asthma and anxiety presents for dental pain. Acute onset 3 days ago +dental pain Right upper teeth +sensitivity to hot and cold foods +cheek swelling Has used ibuprofen and Tylenol +vapes Last seen a dentist 1 1/2 years ago Denies inability to open and or close Denies fever or chills The history is provided by the patient. No specialized language instructor was used. Dental Problem This is a new problem. The current episode started in the past 7 days. The problem occurs constantly. The problem has been gradually worsening. Pertinent negatives include no abdominal pain, anorexia, arthralgias, change in bowel habit, chest pain, chills, congestion, coughing, diaphoresis, fatigue, fever, headaches, joint swelling, myalgias, nausea, neck pain, numbness, rash, sore throat, swollen glands, urinary symptoms, vertigo, visual change, vomiting or weakness. Exacerbated by: eating and drinking. He has tried nothing for the symptoms. The treatment provided no relief. PAST MEDICAL HISTORY Diagnosis Date PMH - PAST MEDICAL HISTORY OF 12/22 normal color vision PMH - PAST MEDICAL HISTORY OF varicella Routine or ritual circumcision Unspecified asthma(493.90) seasonal PAST SURGICAL HISTORY Procedure Laterality Date ADENOIDECTOMY PRIMARY CIRCUMCISION W/CLAMP/OTH DEV W/BLOCK TONSILLECTOMY PRIMARY/SECONDARY TYMPANOSTOMY LOCAL/TOPICAL ANESTHESIA ALLERGIES Augmentin [Amoxicillin-Pot Clavulanate] MEDICATIONS clindamycin (CLEOCIN) 150 mg capsule Take 3 capsules by mouth three times a day for 7 days. traZODone (DESYREL) 100 mg tablet Take 1 tablet by mouth daily at bedtime. (Patient not taking: Reported on 05/02/2023) hydrOXYzine HCl (ATARAX) 25 mg tablet Take 1 tablet by mouth every 6 hours as needed for itching/rash. (Patient not taking: Reported on 05/02/2023) buprenorphine-naloxone (SUBOXONE) 8-2 mg film Dissolve 1 Film under the tongue twice daily. (Patient not taking: Reported on 11/04/2022) albuterol HFA (PROVENTIL HFA, VENTOLIN HFA) 90 mcg/actuation inhaler Inhale 2 puffs with spacer as needed (Patient not taking: Reported on 05/02/2023) FAMILY HISTORY Problem Relation Age of Onset None Mother None Father Hypertension Maternal Grandmother Diabetes Paternal Grandfather other (hemophilia) Brother Social History Tobacco Use Smoking status: Never Smokeless tobacco: Never Tobacco comments: vapes Vaping Use Vaping Use: current everyday user Substances: Nicotine Substance Use Topics Alcohol use: No Drug use: No Review of Systems Constitutional: Negative for chills, diaphoresis, fatigue and fever. HENT: Positive for dental problem. Negative for congestion, sinus pressure, sinus pain and sore throat. Eyes: Negative for pain, discharge and redness. Respiratory: Negative for apnea, cough, choking and chest tightness. Cardiovascular: Negative for chest pain. Gastrointestinal: Negative for abdominal pain, anorexia, change in bowel habit, nausea and vomiting. Musculoskeletal: Negative for arthralgias, joint swelling, myalgias and neck pain. Skin: Negative for rash. Allergic/Immunologic: Negative for environmental allergies, food allergies and immunocompromised state. Neurological: Negative for vertigo, weakness, numbness and headaches. Hematological: Negative for adenopathy. Does not bruise/bleed easily. Psychiatric/Behavioral: Negative for agitation and behavioral problems. Objective BP 134/96 Pulse (!) 121 Temp 36.5 ?C (97.7 ?F) Resp 20 Wt 79.8 kg (176 lb) SpO2 98% BMI 22.60 kg/m? Physical Exam Vitals and nursing note reviewed. Constitutional: General: He is not in acute distress. Appearance: Normal appearance. He is not ill-appearing, toxic-appearing or diaphoretic. HENT: Head: Normocephalic and atraumatic. Comments: +maxillary swelling, right side Right Ear: External ear normal. Left Ear: External ear normal. Nose: Nose normal. No congestion or rhinorrhea. Mouth/Throat: Mouth: Mucous membranes are moist. Pharynx: Oropharynx is clear. No oropharyngeal exudate or posterior oropharyngeal erythema. Eyes: General: Right eye: No discharge. Left eye: No discharge. Extraocular Movements: Extraocular movements intact. Conjunctiva/sclera: Conjunctivae normal. Pupils: Pupils are equal, round, and reactive to light. Cardiovascular: Rate and Rhythm: Normal rate and regular rhythm. Pulses: Normal pulses. Heart sounds: Normal heart sounds. No murmur heard. No friction rub. No gallop. Pulmonary: Effort: Pulmonary effort is normal. No respiratory distress. Breath sounds: Normal breath sounds. No stridor. No wheezing, rhonchi or rales. (more content not included)... [facility] 05-02-2023 History of Present illness Narrative Images from the original note were not included. This note was created using NoteWriter. Subjective Bryan Lundberg is a 27 year old male. 27 year old male with PMH asthma and anxiety presents for dental pain. Acute onset 3 days ago +dental pain Right upper teeth +sensitivity to hot and cold foods +cheek swelling Has used ibuprofen and Tylenol +vapes Last seen a dentist 1 1/2 years ago Denies inability to open and or close Denies fever or chills The history is provided by the patient. No specialized language instructor was used. Dental Problem This is a new problem. The current episode started in the past 7 days. The problem occurs constantly. The problem has been gradually worsening. Pertinent negatives include no abdominal pain, anorexia, arthralgias, change in bowel habit, chest pain, chills, congestion, coughing, diaphoresis, fatigue, fever, headaches, joint swelling, myalgias, nausea, neck pain, numbness, rash, sore throat, swollen glands, urinary symptoms, vertigo, visual change, vomiting or weakness. Exacerbated by: eating and drinking. He has tried nothing for the symptoms. The treatment provided no relief. PAST MEDICAL HISTORY Diagnosis Date PMH - PAST MEDICAL HISTORY OF 12/22 normal color vision PMH - PAST MEDICAL HISTORY OF varicella Routine or ritual circumcision Unspecified asthma(493.90) seasonal PAST SURGICAL HISTORY Procedure Laterality Date ADENOIDECTOMY PRIMARY <AGE 12 2001 CIRCUMCISION W/CLAMP/OTH DEV W/BLOCK TONSILLECTOMY PRIMARY/SECONDARY <AGE 12 TYMPANOSTOMY LOCAL/TOPICAL ANESTHESIA ALLERGIES Augmentin [Amoxicillin-Pot Clavulanate] MEDICATIONS clindamycin (CLEOCIN) 150 mg capsule Take 3 capsules by mouth three times a day for 7 days. traZODone (DESYREL) 100 mg tablet Take 1 tablet by mouth daily at bedtime. (Patient not taking: Reported on 05/02/2023) hydrOXYzine HCl (ATARAX) 25 mg tablet Take 1 tablet by mouth every 6 hours as needed for itching/rash. (Patient not taking: Reported on 05/02/2023) buprenorphine-naloxone (SUBOXONE) 8-2 mg film Dissolve 1 Film under the tongue twice daily. (Patient not taking: Reported on 11/04/2022) albuterol HFA (PROVENTIL HFA, VENTOLIN HFA) 90 mcg/actuation inhaler Inhale 2 puffs with spacer as needed (Patient not taking: Reported on 05/02/2023) FAMILY HISTORY Problem Relation Age of Onset None Mother None Father Hypertension Maternal Grandmother Diabetes Paternal Grandfather other (hemophilia) Brother Social History Tobacco Use Smoking status: Never Smokeless tobacco: Never Tobacco comments: vapes Vaping Use Vaping Use: current everyday user Substances: Nicotine Substance Use Topics Alcohol use: No Drug use: No Review of Systems Constitutional: Negative for chills, diaphoresis, fatigue and fever. HENT: Positive for dental problem. Negative for congestion, sinus pressure, sinus pain and sore throat. Eyes: Negative for pain, discharge and redness. Respiratory: Negative for apnea, cough, choking and chest tightness. Cardiovascular: Negative for chest pain. Gastrointestinal: Negative for abdominal pain, anorexia, change in bowel habit, nausea and vomiting. Musculoskeletal: Negative for arthralgias, joint swelling, myalgias and neck pain. Skin: Negative for rash. Allergic/Immunologic: Negative for environmental allergies, food allergies and immunocompromised state. Neurological: Negative for vertigo, weakness, numbness and headaches. Hematological: Negative for adenopathy. Does not bruise/bleed easily. Psychiatric/Behavioral: Negative for agitation and behavioral problems. Objective BP 134/96 Pulse (!) 121 Temp 36.5 C (97.7 F) Resp 20 Wt 79.8 kg (176 lb) SpO2 98% BMI 22.60 kg/m Physical Exam Vitals and nursing note reviewed. Constitutional: General: He is not in acute distress. Appearance: Normal appearance. He is not ill-appearing, toxic-appearing or diaphoretic. HENT: Head: Normocephalic and atraumatic. Comments: +maxillary swelling, right side Right Ear: External ear normal. Left Ear: External ear normal. Nose: Nose normal. No congestion or rhinorrhea. Mouth/Throat: Mouth: Mucous membranes are moist. Pharynx: Oropharynx is clear. No oropharyngeal exudate or posterior oropharyngeal erythema. Eyes: General: Right eye: No discharge. Left eye: No discharge. Extraocular Movements: Extraocular movements intact. Conjunctiva/sclera: Conjunctivae normal. Pupils: Pupils are equal, round, and reactive to light. Cardiovascular: Rate and Rhythm: Normal rate and regular rhythm. Pulses: Normal pulses. Heart sounds: Normal heart sounds. No murmur heard. No friction rub. No gallop. Pulmonary: Effort: Pulmonary effort is normal. No respiratory distress. Breath sounds: Normal breath sounds. No stridor. No wheezing, rhonchi or rales. Chest: Chest wall: No tenderness. Abdominal: General: Abdomen is flat. There is no distension. Palpations: Abdomen is soft. There is no mass. Tenderness: There is no abdominal tenderness. There is no guarding or rebound. Hernia: No hernia is present. Musculoskeletal: General: No swelling, tenderness, deformity or signs of injury. Normal range of motion. Cervical back: Normal range of motion and neck supple. No rigidity or tenderness. Right lower leg: No edema. Left lower leg: No edema. Lymphadenopathy: Cervical: No cervical adenopathy. Skin: General: Skin is warm and dry. Capillary Refill: Capillary refill takes less than 2 seconds. Coloration: Skin is not jaundiced or pale. Findings: No bruising, lesion or rash. Neurological: General: No focal deficit present. Mental Status: He is alert and oriented to person, place, and time. Cranial Nerves: No cranial nerve deficit. Sensory: No sensory deficit. Motor: No weakness. Coordination: Coordination normal. Gait: Gait normal. Deep Tendon Reflexes: Reflexes normal. Psychiatric: Mood and Affect: Mood normal. Behavior: Behavior normal. Thought Content: Thought content normal. Assessment and Plan ASSESSMENT/PLAN: 1. Pain, dental - ICD9: 525.9, ICD10: K08.89 X 3 days +missing dental integrity No red flags noted RX Clinda given his PCN allergy F/U with dentist HEAVENLY Minor Ghosh APRN.CONSTRUCTION MANAGER documented in this encounter [facility] 11-04-2022 Note HNO ID: [id number] Author: Stacy Nicholson PA-C Service: ? Author Type: Physician [employer] G[employer]er Type: Progress Notes Filed: 11/04/2022 8:27 PM Note Text: 27 year old male with c/o here for follow up States self medicating, not working., States medicating for anxiety and lack of sleep. Anxiety goes through the roof. Has been attending outpatient, facility: [facility]. Not doing suboxone. Can't manage himself for very long without using. Feels he is destroying relationships and seperating his parents and family. Asking to reinstate trazodone and hydroxyzine. HISTORIES FAMILY HISTORY Problem Relation Age of Onset None Mother None Father Hypertension Maternal Grandmother Diabetes Paternal Grandfather other (hemophilia) Brother PAST MEDICAL HISTORY Diagnosis Date PMH - PAST MEDICAL HISTORY OF 12/22 normal color vision PMH - PAST MEDICAL HISTORY OF varicella Routine or ritual circumcision Unspecified asthma(493.90) seasonal PAST SURGICAL HISTORY Procedure Laterality Date ADENOIDECTOMY PRIMARY CIRCUMCISION W/CLAMP/OTH DEV W/BLOCK TONSILLECTOMY PRIMARY/SECONDARY TYMPANOSTOMY LOCAL/TOPICAL ANESTHESIA Social History Tobacco Use Smoking status: Never Smokeless tobacco: Never Tobacco comments: vapes Vaping Use Vaping Use: current everyday user Substances: Nicotine Substance Use Topics Alcohol use: No Drug use: No ACTIVE PROBLEM LIST Foot and Toe(s), Superficial Foreign Body (Splinter), Without Major Open Wound, Infected Cellulitis and Abscess of Foot, Except Toes Concussion With Loss of Consciousness of 30 Minutes Or Less Mild Intermittent Asthma Allergic Rhinitis Herpetic Lesions of Face Generalized Anxiety Disorder Heroin Abuse (Hcc) Current Outpatient Medications Medication Sig Dispense Refill albuterol HFA (PROVENTIL HFA, VENTOLIN HFA) 90 mcg/actuation inhaler Inhale 2 puffs with spacer as needed 18 g 1 buprenorphine-naloxone (SUBOXONE) 8-2 mg film Dissolve 1 Film under the tongue twice daily. (Patient not taking: Reported on 11/04/2022) traZODone (DESYREL) 100 mg tablet Take 1 tablet by mouth daily at bedtime. (Patient not taking: Reported on 11/04/2022) 90 tablet 1 No current facility-administered medications for this visit. PNEUMOCOCCAL(1 - PCV) due on 10/15/2001 SPIROMETRY Never done DTAP,TDAP,TD(4 - Td or Tdap) due on 08/26/2017 DEPRESSION ASSESSMENT Never done ANNUAL PCP TEAM CHRONIC DISEASE VISIT due on 06/28/2022 EXAM: BP 132/68 Pulse 98 Resp 18 Wt 79.8 kg (176 lb) SpO2 96% BMI 22.60 kg/m? Pleasant well appearing young man in no acute distress. Alert and oriented all spheres. Normal affect and cognition. Speech normal. No deficits to learning or comprehension. Skin warm, dry, pink to lips and nailbeds. Normal turgor. No track duke noted. Respirations regular and unlabored. HEENT: NCAT. No scleral icterus or conjunctival injection. TM's clear. Nose and oropharynx free from injection or lesion. Oral membranes moist and pink. No cervical lymph nodes. Thyroid non-tender, no masses, or enlargement. Carotids pulses 2+/4+ without bruits. No JVD with HOB at 30 degrees. Chest is normal shape. Lungs are clear to all valadez with good air exchange through out. HRRR without murmur or gallop. No lifts, heaves, or rubs. Extrem: no clubbing or cyanosis. Edema: none. Extremities are warm and pink with prompt capillary refill. ASSESSMENT/PLAN: 1. Heroin abuse (HCC) - ICD9: 305.50, ICD10: F11.10 (primary diagnosis) 15 minute discussion on facts of heroin addiction, patterns of abuse, effects on family, effective treatment programs which do not allow enabling or dependency. Strongly recommend Naltrexone injections. Patient given [facility] information and he agrees this is likely the best solution. They take walk ins: can go right now. 2. Generalized anxiety disorder - ICD9: 300.02, ICD10: F41.1 Resume meds. Cautioned on overuse of meds: if misused will stop prescribing completely. F/u as needed and in 3 months. May contact me through tania Nicholson PA-C Some of this note may have been copied and pasted for the purpose of history context and comparison. [facility] 11-04-2022 History of Present illness Narrative 27 year old male with c/o here for follow up States self medicating, not working., States medicating for anxiety and lack of sleep. Anxiety goes through the roof. Has been attending outpatient, facility: [facility]. Not doing suboxone. Can't manage himself for very long without using. Feels he is destroying relationships and seperating his parents and family. Asking to reinstate trazodone and hydroxyzine. HISTORIES FAMILY HISTORY Problem Relation Age of Onset None Mother None Father Hypertension Maternal Grandmother Diabetes Paternal Grandfather other (hemophilia) Brother PAST MEDICAL HISTORY Diagnosis Date PMH - PAST MEDICAL HISTORY OF 12/22 normal color vision PMH - PAST MEDICAL HISTORY OF varicella Routine or ritual circumcision Unspecified asthma(493.90) seasonal PAST SURGICAL HISTORY Procedure Laterality Date ADENOIDECTOMY PRIMARY <AGE 12 2001 CIRCUMCISION W/CLAMP/OTH DEV W/BLOCK TONSILLECTOMY PRIMARY/SECONDARY <AGE 12 TYMPANOSTOMY LOCAL/TOPICAL ANESTHESIA Social History Tobacco Use Smoking status: Never Smokeless tobacco: Never Tobacco comments: vapes Vaping Use Vaping Use: current everyday user Substances: Nicotine Substance Use Topics Alcohol use: No Drug use: No ACTIVE PROBLEM LIST Foot and Toe(s), Superficial Foreign Body (Splinter), Without Major Open Wound, Infected Cellulitis and Abscess of Foot, Except Toes Concussion With Loss of Consciousness of 30 Minutes Or Less Mild Intermittent Asthma Allergic Rhinitis Herpetic Lesions of Face Generalized Anxiety Disorder Heroin Abuse (Hcc) Current Outpatient Medications Medication Sig Dispense Refill albuterol HFA (PROVENTIL HFA, VENTOLIN HFA) 90 mcg/actuation inhaler Inhale 2 puffs with spacer as needed 18 g 1 buprenorphine-naloxone (SUBOXONE) 8-2 mg film Dissolve 1 Film under the tongue twice daily. (Patient not taking: Reported on 11/04/2022) traZODone (DESYREL) 100 mg tablet Take 1 tablet by mouth daily at bedtime. (Patient not taking: Reported on 11/04/2022) 90 tablet 1 No current facility-administered medications for this visit. PNEUMOCOCCAL(1 - PCV) due on 10/15/2001 SPIROMETRY Never done DTAP,TDAP,TD(4 - Td or Tdap) due on 08/26/2017 DEPRESSION ASSESSMENT Never done ANNUAL PCP TEAM CHRONIC DISEASE VISIT due on 06/28/2022 EXAM: BP 132/68 Pulse 98 Resp 18 Wt 79.8 kg (176 lb) SpO2 96% BMI 22.60 kg/m Pleasant well appearing young man in no acute distress. Alert and oriented all spheres. Normal affect and cognition. Speech normal. No deficits to learning or comprehension. Skin warm, dry, pink to lips and nailbeds. Normal turgor. No track duke noted. Respirations regular and unlabored. HEENT: NCAT. No scleral icterus or conjunctival injection. TM's clear. Nose and oropharynx free from injection or lesion. Oral membranes moist and pink. No cervical lymph nodes. Thyroid non-tender, no masses, or enlargement. Carotids pulses 2+/4+ without bruits. No JVD with HOB at 30 degrees. Chest is normal shape. Lungs are clear to all valadez with good air exchange through out. HRRR without murmur or gallop. No lifts, heaves, or rubs. Extrem: no clubbing or cyanosis. Edema: none. Extremities are warm and pink with prompt capillary refill. ASSESSMENT/PLAN: 1. Heroin abuse (HCC) - ICD9: 305.50, ICD10: F11.10 (primary diagnosis) 15 minute discussion on facts of heroin addiction, patterns of abuse, effects on family, effective treatment programs which do not allow enabling or dependency. Strongly recommend Naltrexone injections. Patient given [facility] information and he agrees this is likely the best solution. They take walk ins: can go right now. 2. Generalized anxiety disorder - ICD9: 300.02, ICD10: F41.1 Resume meds. Cautioned on overuse of meds: if misused will stop prescribing completely. F/u as needed and in 3 months. May contact me through tania Nicholson PA-C Some of this note may have been copied and pasted for the purpose of history context and comparison. documented in this encounter [facility] 09-18-2022 Note [facility] Medical Records Department [address] [place] [address] Discharge Summary 09/18/22 1907 MR#: [id number] Acct: [id number] Name: BRYAN LUNDBERG Rep #: [id number] : 1995 26 From: Aronl Somers DO PCP: EVELYN Phan Status:DIS IN [facility] Prov[facility] Date of Admission: 09/15/22 Date of Discharge: 09/17/22 Primary Care Physician: EVELYN Phan Reason For Visit: OPIATE DETOX Diagnosis Discharge Diagnosis (1) Opiate addiction: Status: Acute Code(s): F11.20 - Opioid dependence, uncomplicated Plan 1. Acute opiate withdrawal-continue present medications, patient will be seen by addiction home health care social worker, he states he wants to do an outpatient treatment program when discharged from the hospital. #2 dehydration-I do not feel the patient needs IV fluids at this time, BUN today was 19 #3 hypokalemia-patient will be given oral potassium, potassium was 3.2 today #4 chronic opioid addiction-patient will be seen by addiction home health care social worker tomorrow #5 polysubstance abuse-complicates care, medical course, recovery, and prognosis Total clinical time spent by myself addressing the patient's medical issues, reviewing all of his data, and collaborating with his care team: 25 minutes Medications at Discharge Home Medications trazodone 100 mg tablet 100 mg PO QHS PRN PRN sleep] 09/14/22 Hospital Course Operations None Procedures None Summary of Care Provided Minutes Spent on Discharge: 31 Hospital Course: This 26-year-old white male was seen in the emergency room at [facility] requesting services for opiate detox due to chronic opioid addiction. Patient was admitted to [place] [address], or ders were entered using the opiate detox order set, patient was monitored and he was seen by addicti on home health care social worker. Patient stated that he wanted to do an outpatient detox program rather than an inpatient detox program at discharge from the hospital. Patient had no untoward events during his h ospitalization he had minimal withdrawal symptoms. Patient was given supplemental potassium due to low potassium, he appeared to be slightly dehydrated at the time of admission but was able to take o ral fluids. Patient's tox screen on admission was positive for opiates, amphetamines, MDMA, and digna abinoids. On 09/17/2022, patient was seen and examined: On examination he appeared in good health and spirits. Vital signs as documented. Skin warm and dry and without overt rashes. Neck without JVD, neck was supple, trachea midline, thyroid was normal. Lungs clear bilaterally, normal air movement was noted. Heart exam notable for regular rhythm, normal sounds and absence of murmurs, rubs or gallops. Abdomen unremarkable and without evidence of organomegaly, masses, or abdominal aortic enlargement. Bowel sounds are present, abdomen is not distended. Extremities nonedematous, no cyanosis was noted, no clubbing was noted. Neuro: Cranial nerves II through XII are grossly intact, no focal mot or deficits were noted, sensation to light touch and pinprick intact, motor exam 5/5 throughout. Ps ych: Patient is alert and oriented x3, he does not appear anxious or depressed, he does not appear a gitated. Patient was seen and examined on 09/17/2022 and appear to be stable for discharge home. Weight / BMI Weight Weight: 76.204 kg Body Mass Index (BMI) 21.5 ABG / Lab / Microbiology Data 09/14/22 22:15 09/16/22 05:25 D/C Instructions Discharge Diet: No restrictions Weight Bearing Status: Full weight bearing Meaningful Use Info Meaningful Use Diagnoses (Choose all that apply): None applicable Discharge Plan Admission Admit Date/Time: 09/15/22 00:04 Primary Reason for Your Visit: Opiate detox Attending Provider: Arnol Somers Primary Care Provider: Stacy Nicholson Consulting Providers: Xander Olivera Instructions Additional Instructions / Restrictions: Follow-up with 180 today Discharge Orders/Prescriptions Prescriptions: Continued trazodone 100 mg tablet 100 mg PO QHS PRN PRN (Reason: sleep]) Patient Comments: TAKE 1 TABLET BY MOUTH ONCE DAILY AT BEDTIME Referrals / Follow Up: Stacy Nicholson PA [Primary Care Provider] - Disposition Disposition (needs filled in before D/C Order can be placed): Home, Self Care Charges/Coding Visit Charges Inpatient E M: 18275 Disch Hosp >30min 09/18/22 191 Cosigner Signature (if applicable): CC: Dr. Arnol Somers DO; EVELYN Phan Signed [facility] 09-17-2022 Discharge summary Note Date/Time September 17, 2022 10:43am [facility] Medical Records Department [address] [place] [address] Instructions for Home/Discharge Instructions 09/17/22 1042 MR#: [id number] Acct: [id number] Name: BRYAN LUNDBERG Rep #:[id number] : 1995 26 From: Arnol Somers DO PCP: EVELYN Phan Status:ADM I N Discharge Instructions Diet Discharge Diet: No restrictions Activity Discharge Activity: Return to Normal Activity Weight Bearing Status: Full weight bearing Follow Up Care Test Results: Test results from this visit will be discussed in further detail at your follow-up appointment, if applicable. Discharge Plan Admission Admit Date/Time: 09/15/22 00:04 Primary Reason for Your Visit: Opiate detox Attending Provider: Arnol Somers Primary Care Provider: Stacy Nicholson Consulting Providers: Xander Olivera Instructions Additional Instructions / Restrictions: Follow-up with 180 today Discharge Orders/Prescriptions Prescriptions: Continued trazodone 100 mg tablet 100 mg PO QHS PRN PRN (Reason: sleep]) Label Comments: TAKE 1 TABLET BY MOUTH ONCE DAILY AT BEDTIME Referrals / Follow Up: Stacy Nicholson PA [Primary Care Provider] - Disposition Disposition (needs filled in before D/C Order can be placed): Home, Self Care 09/17/22 1045<Electronically signed by Arnol Somers DO>Arnol Somers DO CC: EVELYN Nicholson; Dr. Xander Olivera MD ~ Signed [facility] Work Phone: 1(538) 442-542306-26-[address] [facility] September 16, 2022 7:02pm Note Date/Time September 16, 2022 7:02 pm [facility] Medical Records Department [address] [facility] [place] [address] Progress Note - Hospitalist 09/16/22 190 MR#: [id number] Acct: [id number] Name: BRYAN LUNDBERG Rep #:[id number] : 1995 26 From: Arnol Somers DO PCP: EVELYN Phan Status:ADM I N Location: [place] [address] Reason for Visit Reason for Visit: Diagnoses Opioid dependence, uncomplicated (09/15/22) Tobacco use (09/15/22) Subjective Subjective Patient was seen and examined today, he states he feels better, he met with addiction home health care social worker today and will follow-up as an outpatient with an outpatient detox center Objective Data Objective Data Vital Signs: Vital Signs Temp Pulse Resp BP Pulse Ox O2 Del Method 98.0 F 111 H 18 141/83 H 97 Room Air 09/16/22 13:36 09/16/22 13:36 09/16/22 13:36 09/16/22 13:36 09/16/22 13:36 09/16/22 13:36 Oxygen Delivery Method Room Air Weight: 76.204 kg Body Mass Index (BMI) 21.5 Intake & Output: Intake and Output for Last 24 Hours 09/14/22 09/15/22 09/16/22 23:59 23:59 23:59 Intake Total 1000 / 1000 300 / 300 Balance 1000 / 1000 300 / 300 Lab / Micro Data Result Diagrams: 09/14/22 22:15 09/16/22 05:25 Labs: Laboratory Results - last 24 hr 09/16/22 05:25: Sodium 132 L, Potassium 3.2 L, Chloride 100, Carbon Dioxide 25.0, Anion Gap 7, BUN 19 H, Creatinine 1.09, Estim Creat Clear Calc 110.69, EstGFR (MDRD) Af Amer 104, Est GFR (MDRD) Non-Af 86, BUN/Creatinine Ratio 17.4, Glucose 115 H, Calcium 8.8 Physical Exam Const alert, oriented x3, no apparent distress and healthy appearing General Appearance: cooperative, well kempt and well developed Orientation / Consciousness: awake, oriented to person, oriented to place and oriented to time HEENT normocephalic and moist oral mucous membranes Eyes PERRL, EOMs intact bilaterally and conjunctivae normal Neck supple, no JVD, thyroid normal and no carotid bruits General: trachea midline Resp normal respiratory effort and clear to auscultation bilaterally Auscultation: Negative for rales, rhonchi or wheezes Cardio regular rate, regular rhythm, no murmurs, no rub and no gallops GI normal to inspection, nondistended, normoactive bowel sounds, soft to palpation,non-tender and non-distended Extremity no clubbing, cyanosis or edema Skin no rashes or lesions noted General Skin Exam: no breakdown Neuro oriented x3, CN's II-XII intact bilaterally, no focal motor deficits and no sensory deficits noted Sensorium / Orientation: awake and alert Speech: speech normal Psych affect normal Assessment & Plan Assessment/Plan (1) Opiate addiction: PLAN: Plan 1. Acute opiate withdrawal-continue present medications, patient will be seen by addiction home health care social worker, he states he wants to do an outpatient treatment program when discharged from the hospital. #2 dehydration-I do not feel the patient needs IV fluids at this time, BUN todaywas 19 #3 hypokalemia-patient will be given oral potassium, potassium was 3.2 today #4 chronic opioid addiction-patient will be seen by addiction home health care social worker tomorrow #5 polysubstance abuse-complicates care, medical course, recovery, and prognosis Total clinical time spent by myself addressing the patient's medical issues, reviewing all of his data, and collaborating with his care team: 25 minutes Charges/Coding Visit Charges Inpatient E&M: 20877 Subs Hosp L2 09/16/22 1902 <Electronically signed by Arnol Somers DO> Cosigner Signature (if applicable): CC: ~ Signed [facility] Work Phone: 1(245) 348-886306-25-[address] Somers [facility] September 15, 2022 5:01pm Note Date/Time September 15, 2022 5:01 pm [facility] Medical Records Department [address] [place] [address] Progress Note - Hospitalist 09/15/22 1658 MR#: [id number] Acct: [id number] Name: BRYAN LUNDBERG Rep #:[id number] : 1995 From: Arnol Somers DO PCP: EVELYN Phan Status:ADM I N Location: [place] [address] Reason for Visit Reason for Visit: Diagnoses Opioid dependence, uncomplicated (09/15/22) Tobacco use (09/15/22) Subjective Subjective Patient was seen and examined today, he states he does not feel well but is nonspecific about any symptoms. Patient's vital signs remained stable at this time Objective Data Objective Data Vital Signs: Vital Signs Temp Pulse Resp BP Pulse Ox O2 Del Method 98.4 F 73 18 148/80 H 97 Room Air 09/15/22 15:08 09/15/22 15:08 09/15/22 15:08 09/15/22 15:08 09/15/22 15:08 09/15/22 15:08 Oxygen Delivery Method Room Air Weight: 76.204 kg Body Mass Index (BMI) 21.5 Intake & Output: Intake and Output for Last 24 Hours 09/13/22 09/14/22 09/15/22 23:59 23:59 23:59 Intake Total 1000 / 1000 300 / 300 Balance 1000 / 1000 300 / 300 Lab / Micro Data Result Diagrams: 09/14/22 22:15 09/14/22 22:15 Labs: Laboratory Results - last 24 hr 09/14/22 22:15: WBC 12.6 H, RBC 6.23 H, Hgb 17.3 H, Hct 48.6, MCV 78.0 L, MCH 27.8, MCHC 35.6, RDW Std Deviation 33.5 L, RDW Coeff of Cecilio 11.9, Plt Count 345,MPV 9.5, Immature Gran % (Auto) 0.400, Neut % (Auto) 77.1 H, Lymph % (Auto) 14.1L, [place] % (Auto) 8.1, Eos % (Auto) 0.1, Baso % (Auto) 0.2, Absolute Neuts (auto)9.7 H, Absolute Lymphs (auto) 1.77, Nucleated RBC % 0 09/14/22 22:15: Sodium 129 L, Potassium 3.3 L, Chloride 92 L, Carbon Dioxide 26.0, Anion Gap 11, BUN 22 H, Creatinine 1.14, Estim Creat Clear Calc 105.15, Est GFR (MDRD) Af Amer 99, Est GFR (MDRD) Non-Af 82, BUN/Creatinine Ratio 19.3, Glucose 115 H, Calcium 9.9, Total Bilirubin 1.10 H, AST 26, ALT 29, Alkaline Phosphatase 121 H, Total Protein 8.9 H, Albumin 4.7, Globulin 4.2, Albumin/Globulin Ratio 1.1 09/14/22 22:15: Ethyl Alcohol < 3.0 09/14/22 23:06: Urine Opiates Screen POSITIVE H, Urine Methadone Screen NEGATIVE, Ur Barbiturates Screen NEGATIVE, Ur Phencyclidine Scrn NEGATIVE, Ur Amphetamines Screen POSITIVE H, MDMA (Ecstasy) Screen POSITIVE H, U Benzodiazepines Scrn NEGATIVE, Urine Cocaine Screen NEGATIVE, U Cannabinoids Screen POSITIVE H, Ur Drug Screen Comment Physical Exam Const alert, oriented x3, no apparent distress and average body habitus General Appearance: cooperative, well kempt and well developed Orientation / Consciousness: awake, oriented to person, oriented to place and oriented to time HEENT normocephalic, head/scalp atraumatic and moist oral mucous membranes Eyes PERRL, EOMs intact bilaterally and conjunctivae normal Neck supple, no JVD, thyroid normal and no carotid bruits General: trachea midline Resp normal respiratory effort, no retractions, no use of accessory muscles and clearto auscultation bilaterally Auscultation: Negative for rales, rhonchi or wheezes Cardio regular rate, regular rhythm, S1 normal heart sound, S2 normal heart sound, no murmurs, no rub and no gallops GI normal to inspection, nondistended, normoactive bowel sounds, soft to palpation,non-tender and non-distended Extremity no clubbing, cyanosis or edema Skin no rashes or lesions noted General Skin Exam: no breakdown Neuro oriented x3, CN's II-XII intact bilaterally, moves all extremities, no focal motor deficits and no sensory deficits noted Sensorium / Orientation: awake and alert Speech: speech normal Psych affect normal Assessment & Plan Assessment/Plan (1) Opiate addiction: PLAN: Plan 1. Acute opiate withdrawal-continue present medications, patient will be seen by addiction home health care social worker, he states he wants to do an outpatient treatment program when discharged from the hospital. #2 dehydration-I do not feel the patient needs IV fluids at this time #3 hypokalemia-patient will be given oral potassium #4 chronic opioid addiction-patient will be seen by addiction home health care social worker tomorrow #5 polysubstance abuse-complicates care, medical course, recovery, and prognosis Total clinical time spent by myself addressing the patient's medical issues, reviewing all of his data, and collaborating with his care team: 25 minutes Charges/Coding Visit Charges Inpatient E&M: 19393 Subs Hosp L1 09/15/22 1701 <Electronically signed by Arnol Somers DO> Cosigner Signature (if applicable): CC: ~ Signed [facility] Work Phone: 1(733) 325-317606-25-2023 History and physical note Author Dr. Olivera [facility] September 15, 2022 5:13am Note Date/Time September 14, 2022 11:4 0pm [facility] Medical Records Department [address] [place] [address] H&P Exam - Hospitalist 09/14/22 2340 MR#: [id number] Acct: [id number] Name: BRYAN LUNDBERG Rep #:[id number] : 1995 26 From: Xander Olivera MD PCP: EVELYN Phan Status:ADM I N Location: [facility] [id number] HPI - General General Date of Admission: 09/15/22 Date of Service: 09/15/22 Chief Complaint: Desire for detoxification HPI Narrative BRYAN LUNDBERG, is a 26 M with a significant for tobacco abuse and fentanyl abusewho presents to the emergency department with a desire to get detoxification. Patient admits to snorting about half a gram of Fentanyl per day. He began using since he was age 16 years. He has been using on and off as he has been to rehab multiple times. Last time he used was about 2 to 3 hours before presentation. He tried detoxing by himself but had withdrawal symptoms of vomiting, a feeling of something crawling over his body symptoms, and shortness of breath. [facility] Medical History Acute opioid withdrawal Asthma Cannabis abuse Polysubstance (including opioids) dependence with physiol dependence Tobacco abuse Home Medications trazodone 100 mg tablet 100 mg PO QHS PRN PRN sleep] 09/14/22 [History Last Taken Unknown] Allergy/AdvReac Type Severity Reaction Status Date / Time amoxicillin trihydrate Allergy Rash Verified 09/14/22 21:41 [From Augmentin] potassium clavulanate Allergy Rash Verified 09/14/22 21:41 [From Augmentin] Family History Brother Hemophilia Father Diabetes Surgical History History of tonsillectomy Social History Smoking Status: Current every day smoker tobacco type: cigarettes alcohol intake: current alcohol intake frequency: holidays/special occasions only substance use type: marijuana, heroin, opiates and other details: Fentanyl ROS ROS Narrative Pertinent positives and pertinent negatives as noted in HPI. All other systems were reviewed and are negative Vital Signs Vital Signs Vital Signs: 09/14/22 21:41 Temperature 98.6 F Temperature Source Temporal Pulse Rate 117 H Respiratory Rate 16 Blood Pressure 104/89 H Blood Pressure Mean 94 Pulse Ox 98 Weight Weight: 75.705 kg Body Mass Index (BMI) 21.4 Physical Exam Narrative Physical exam: General: Well-nourished, well-developed. Head: Normocephalic, atraumatic, no tenderness Eyes: Vision is grossly intact. EOMI ENT, no trauma, moist mucous membranes, no rhinorrhea Neck: Nontender, No thyromegaly. CVS: Regular rate and rhythm. S1-S2 present. No murmur, gallop or rub. Respiratory : clear to auscultation bilaterally, chest wall nontender Abdomen: Soft, nontender, nondistended, normal bowel sounds, no masses : Deferred Back: Nontender, no CVA tenderness, no midline spinal tenderness, deformities, step-offs Extremities: Nontender full range of motion, no trauma Skin: Normal color, no trauma, abrasions Neuro: Alert, oriented, cranial nerves II through XII grossly intact. Psychiatry: Normal mood. Normal affect. Not depressed. Not anxious. Results Lab / Micro Data Result Diagrams: 09/14/22 22:15 09/14/22 22:15 Labs: Laboratory Results - last 24 hr 09/14/22 22:15: WBC 12.6 H, RBC 6.23 H, Hgb 17.3 H, Hct 48.6, MCV 78.0 L, MCH 27.8, MCHC 35.6, RDW Std Deviation 33.5 L, RDW Coeff of Cecilio 11.9, Plt Count 345,MPV 9.5, Immature Gran % (Auto) 0.400, Neut % (Auto) 77.1 H, Lymph % (Auto) 14.1L, [place] % (Auto) 8.1, Eos % (Auto) 0.1, Baso % (Auto) 0.2, Absolute Neuts (auto)9.7 H, Absolute Lymphs (auto) 1.77, Nucleated RBC % 0 09/14/22 22:15: Sodium 129 L, Potassium 3.3 L, Chloride 92 L, Carbon Dioxide 26.0, Anion Gap 11, BUN 22 H, Creatinine 1.14, Estim Creat Clear Calc 105.15, Est GFR (MDRD) Af Amer 99, Est GFR (MDRD) Non-Af 82, BUN/Creatinine Ratio 19.3, Glucose 115 H, Calcium 9.9, Total Bilirubin 1.10 H, AST 26, ALT 29, Alkaline Phosphatase 121 H, Total Protein 8.9 H, Albumin 4.7, Globulin 4.2, Albumin/Globulin Ratio 1.1 09/14/22 22:15: Ethyl Alcohol < 3.0 09/14/22 23:06: Ur Drug Screen Comment Assessment & Plan Assessment/Plan (1) Opiate addiction: (2) Desire for detoxification: (3) Tobacco abuse: PLAN: Plan Opioid dependence and withdrawal Patient be started on Subutex and other adjunctive medications: Gabapentin as needed; dicyclomine as needed; Vistaril as needed; methocarbamol as needed; clonidine as needed; Imodium as needed; trazodone as needed and Zofran as needed. Monitor COWS and CINA score Tobacco abuse Counseled Nicotine patch ordered DVT prophylaxis Low risk Encourage to ambulate Charges/Coding Visit Charges Inpatient E&M: 21820 Init Hosp L2 09/15/22 0513 <Electronically signed by Xander Olivera MD> Cosigner Signature (if applicable): CC: EVELYN Nicholson; Dr. Xander Olivera MD~ Signed [facility] Work Phone: [phone] 772-895106-25-[address] Menendez [facility] September 15, 2022 1:01am Note Date/Time September 14, 2022 10:1 0pm [facility] Medical Records Department [address] [place] [address] Emergency Department Summary 09/14/22 MR#: [id number] Acct: [id number] Name: BRYAN LUNDBERG Rep #:[id number] : 1995 26 From: Boston Menendez MD PCP: EVELYN Phan Status:ADM I N [id number] History of Present Illness Chief Complaint: Substance Abuse Informant: patient Narrative Narrative: Patient presents requesting detox from fentanyl. Patient states he uses about a half a gram sometimes more day of what he thinks is fentanyl. He states he knows that people makes other things in with it but his focus is fentanyl. He snorts it. He has never injected it. He does not drink alcohol. He has gone through detox once and followed up with [facility]. He stayed clean for about 2 months. He states he is just tired of living life likethis and wants to get off of the chemical. Nothing else caused presentation. He has no physical complaints at this time. When he attempts to quit, he gets severe nausea vomiting anxiety and then he gets muscle aches and cramps. His last use was about 5 hours ago now. He tried to detox yesterday on his own. After about 12 hours he started vomiting badly. He used again. He is able to eat and drink and the vomiting is gone now. He has a history of getting severely dehydrated and even had an acute kidney injury once from this dehydration. He does not feel as though he is to that point yet but he does feel somewhat dehydrated. [facility] Medical History Acute opioid withdrawal Asthma Cannabis abuse Polysubstance (including opioids) dependence with physiol dependence Tobacco abuse Home Medications trazodone 100 mg tablet 100 mg PO QHS PRN PRN sleep] 09/14/22 [History Last Taken Unknown] Allergy/AdvReac Type Severity Reaction Status Date / Time amoxicillin trihydrate Allergy Rash Verified 09/14/22 21:41 [From Augmentin] potassium clavulanate Allergy Rash Verified 09/14/22 21:41 [From Augmentin] Family History Brother Hemophilia Father Diabetes Surgical History History of tonsillectomy Social History Smoking Status: Current every day smoker tobacco type: cigarettes alcohol intake: current alcohol intake frequency: holidays/special occasions only substance use type: marijuana, heroin, opiates and other details: Fentanyl ROS ROS ED Constitutional Constitutional ED: Denies chills, fever(s) or subjective Eyes Eyes: Denies change in vision ENT ENT ED: Denies sore throat Cardiovascular Cardiovascular: Denies chest pain or palpitations Respiratory/Chest Respiratory/Chest: Denies cough Gastrointestinal Gastrointestinal: Reports other Details: See history of present illness. ; Denies diarrhea or vomiting Genitourinary Genitourinary ED: Denies urinary frequency Musculoskeletal Musculoskeletal: Denies myalgias Integumentary Denies rash Neurologic Neurologic: Denies headache(s) Psychiatric Psychiatric: Reports anxiety; Denies suicidal ideation or suicidal thoughts Hematologic/Lymphatic Hematologic/Lymphatic: Denies easy bleeding or easy bruising Allergic/Immunologic Allergic/Immunologic ED: Denies urticaria EXAM Physical Exam Narrative Exam Narrative: CONSTITUTIONAL: Patient is nontoxic in appearance. The patient looks comfortable. HEENT: No notable trauma. Mucous membranes do look slightly dry. No sinus tenderness. No indication of pain with swallowing. EYES: No conjunctival injection. No proptosis. CARDIOVASCULAR: Regular rate. Regular rhythm. No notable murmur. No JVD. RESPIRATORY: No respiratory distress. Breathing is unlabored. No wheezes. No rhonchi. No rales. No pain with a deep breath. GASTROINTESTINAL: Not distended. Bowel sounds are normal. No tenderness. No guarding. No rebound. No palpable mass. No bruit. GENITOURINARY: No tenderness over the bladder. No CVA tenderness. MUSCULOSKELETAL: Atraumatic. No peripheral edema. No cord. No tenderness along the deep venous system. No asymmetry. NEUROLOGICAL: Patient is alert and appropriate. No focal deficit noted. SKIN: No noted rashes. No diaphoresis. No track duke are noted consistent withhis history. PSYCHIATRIC: Patient is calm. Mood is appropriate. Flight of ideas. Const Vital Signs: 09/14/22 21:41 09/14/22 23:53 Temperature 98.6 F 98.5 F Temperature Source Temporal Oral Pulse Rate 117 H 94 Respiratory Rate 16 16 Blood Pressure 104/89 H 138/91 H Blood Pressure Mean 94 106 Pulse Ox 98 98 Oxygen Delivery Method Room Air MDM MDM MDM Narrative Medical decision making narrative: Patient CBC showed mild elevation of white count and of the hemoglobin. This might be due to some mild dehydration but is nonspecific. Patient's electrolytes showed mildly low sodium potassium. BUN was slightly high but creatinine had not acutely risen at this time. Liver function test show no marked abnormalities from the past. Alcohol level is negative. Urine tox screens shows positive opiates but also positive for cannabis methamphetamines and MDMA. Patient does have some signs of clinical and laboratory dehydration. But he is able to eat and drink. He was given IV fluids here. I discussed case with the hospitalist and he will be admitted. Lab Data Attestation: I reviewed the patient's lab results. Labs: Laboratory Results - last 24 hr 09/14/22 09/14/22 09/14/22 22:15 22:15 22:15 WBC 12.6 H RBC 6.23 H Hgb 17.3 H Hct 48.6 MCV 78.0 L MCH 27.8 MCHC 35.6 RDW Std Deviation 33.5 L RDW Coeff of Cecilio 11.9 Plt Count 345 MPV 9.5 Immature Gran % (Auto) 0.400 Neut % (Auto) 77.1 H Lymph % (Auto) 14.1 L [place] % (Auto) 8.1 Eos % (Auto) 0.1 Baso % (Auto) 0.2 Absolute Neuts (auto) 9.7 H Absolute Lymphs (auto) 1.77 Nucleated RBC % 0 Sodium 129 L Potassium 3.3 L Chloride 92 L Carbon Dioxide 26.0 Anion Gap 11 BUN 22 H Creatinine 1.14 Estim Creat Clear Calc 105.15 Est GFR (MDRD) Af Amer 99 Est GFR (MDRD) Non-Af 82 BUN/Creatinine Ratio 19.3 Glucose 115 H Calcium 9.9 Total Bilirubin 1.10 H AST 26 ALT 29 Alkaline Phosphatase 121 H Total Protein 8.9 H Albumin 4.7 Globulin 4.2 Albumin/Globulin Ratio 1.1 Urine Opiates Screen Urine Methadone Screen Ur Barbiturates Screen Ur Phencyclidine Scrn Ur Amphetamines Screen MDMA (Ecstasy) Screen U Benzodiazepines Scrn Urine Cocaine Screen U Cannabinoids Screen Ur Drug Screen Comment Ethyl Alcohol < 3.0 09/14/22 23:06 WBC RBC Hgb Hct MCV MCH MCHC RDW Std Deviation RDW Coeff of Cecilio Plt Count MPV Immature Gran % (Auto) Neut % (Auto) Lymph % (Auto) [place] % (Auto) Eos % (Auto) Baso % (Auto) Absolute Neuts (auto) Absolute Lymphs (auto) Nucleated RBC % Sodium Potassium Chloride Carbon Dioxide Anion Gap BUN Creatinine Estim Creat Clear Calc Est GFR (MDRD) Af Amer Est GFR (MDRD) Non-Af BUN/Creatinine Ratio Glucose Calcium Total Bilirubin AST ALT Alkaline Phosphatase Total Protein Albumin Globulin Albumin/Globulin Ratio Urine Opiates Screen POSITIVE H Urine Methadone Screen NEGATIVE Ur Barbiturates Screen NEGATIVE Ur Phencyclidine Scrn NEGATIVE Ur Amphetamines Screen POSITIVE H MDMA (Ecstasy) Screen POSITIVE H U Benzodiazepines Scrn NEGATIVE Urine Cocaine Screen NEGATIVE U Cannabinoids Screen POSITIVE H Ur Drug Screen Comment Ethyl Alcohol Management Discussion w/another healthcare provider: Hospitalist Discharge Plan Triage Chief Complaint: Substance Abuse ED Provider: Boston Menendez Dx/Rx/DC Orders Clinical Impression: Opiate addiction, Desire for detoxification, Mild dehydration Primary Care Provider: Stacy Nicholson Disposition Disposition: Acute Care [facility] What to do if you have Problems For any increased pain, shortness of breath, bleeding, nausea or vomiting, chestpain, or any unexpected problems, contact your Primary Care Provider. Call [facility] ([phone]) or report to the closest Emergency Room. Call 911 if necessary. 09/15/22 0101 <Electronically signed by Boston Menendez MD> Cosigner Signature (if applicable): CC: EVELYN Nicholson ~ Signed [facility] Work Phone: [phone] Menendez [facility] September 15, 2022 1:01am Note Date/Time September 14, 2022 10:1 0pm [facility] Medical Records Department [address] [place] [address] Emergency Department Summary 09/14/22 MR#: [id number] Acct: [id number] Name: BRYAN LUNDBERG Rep #:[id number] : 1995 26 From: Boston Menendez MD PCP: EVELYN Phan Status:ADM I N [id number] HPI History of Present Illness Chief Complaint: Substance Abuse Informant: patient Narrative Narrative: Patient presents requesting detox from fentanyl. Patient states he uses about a half a gram sometimes more day of what he thinks is fentanyl. He states he knows that people makes other things in with it but his focus is fentanyl. He snorts it. He has never injected it. He does not drink alcohol. He has gone through detox once and followed up with [facility]. He stayed clean for about 2 months. He states he is just tired of living life likethis and wants to get off of the chemical. Nothing else caused presentation. He has no physical complaints at this time. When he attempts to quit, he gets severe nausea vomiting anxiety and then he gets muscle aches and cramps. His last use was about 5 hours ago now. He tried to detox yesterday on his own. After about 12 hours he started vomiting badly. He used again. He is able to eat and drink and the vomiting is gone now. He has a history of getting severely dehydrated and even had an acute kidney injury once from this dehydration. He does not feel as though he is to that point yet but he does feel somewhat dehydrated. [facility] Medical History Acute opioid withdrawal Asthma Cannabis abuse Polysubstance (including opioids) dependence with physiol dependence Tobacco abuse Home Medications trazodone 100 mg tablet 100 mg PO QHS PRN PRN sleep] 09/14/22 [History Last Taken Unknown] Allergy/AdvReac Type Severity Reaction Status Date / Time amoxicillin trihydrate Allergy Rash Verified 09/14/22 21:41 [From Augmentin] potassium clavulanate Allergy Rash Verified 09/14/22 21:41 [From Augmentin] Family History Brother Hemophilia Father Diabetes Surgical History History of tonsillectomy Social History Smoking Status: Current every day smoker tobacco type: cigarettes alcohol intake: current alcohol intake frequency: holidays/special occasions only substance use type: marijuana, heroin, opiates and other details: Fentanyl ROS ROS ED Constitutional Constitutional ED: Denies chills, fever(s) or subjective Eyes Eyes: Denies change in vision ENT ENT ED: Denies sore throat Cardiovascular Cardiovascular: Denies chest pain or palpitations Respiratory/Chest Respiratory/Chest: Denies cough Gastrointestinal Gastrointestinal: Reports other Details: See history of present illness. ; Denies diarrhea or vomiting Genitourinary Genitourinary ED: Denies urinary frequency Musculoskeletal Musculoskeletal: Denies myalgias Integumentary Denies rash Neurologic Neurologic: Denies headache(s) Psychiatric Psychiatric: Reports anxiety; Denies suicidal ideation or suicidal thoughts Hematologic/Lymphatic Hematologic/Lymphatic: Denies easy bleeding or easy bruising Allergic/Immunologic Allergic/Immunologic ED: Denies urticaria EXAM Physical Exam Narrative Exam Narrative: CONSTITUTIONAL: Patient is nontoxic in appearance. The patient looks comfortable. HEENT: No notable trauma. Mucous membranes do look slightly dry. No sinus tenderness. No indication of pain with swallowing. EYES: No conjunctival injection. No proptosis. CARDIOVASCULAR: Regular rate. Regular rhythm. No notable murmur. No JVD. RESPIRATORY: No respiratory distress. Breathing is unlabored. No wheezes. No rhonchi. No rales. No pain with a deep breath. GASTROINTESTINAL: Not distended. Bowel sounds are normal. No tenderness. No guarding. No rebound. No palpable mass. No bruit. GENITOURINARY: No tenderness over the bladder. No CVA tenderness. MUSCULOSKELETAL: Atraumatic. No peripheral edema. No cord. No tenderness along the deep venous system. No asymmetry. NEUROLOGICAL: Patient is alert and appropriate. No focal deficit noted. SKIN: No noted rashes. No diaphoresis. No track duke are noted consistent withhis history. PSYCHIATRIC: Patient is calm. Mood is appropriate. Flight of ideas. Const Vital Signs: 09/14/22 21:41 09/14/22 23:53 Temperature 98.6 F 98.5 F Temperature Source Temporal Oral Pulse Rate 117 H 94 Respiratory Rate 16 16 Blood Pressure 104/89 H 138/91 H Blood Pressure Mean 94 106 Pulse Ox 98 98 Oxygen Delivery Method Room Air MDM MDM MDM Narrative Medical decision making narrative: Patient CBC showed mild elevation of white count and of the hemoglobin. This might be due to some mild dehydration but is nonspecific. Patient's electrolytes showed mildly low sodium potassium. BUN was slightly high but creatinine had not acutely risen at this time. Liver function test show no marked abnormalities from the past. Alcohol level is negative. Urine tox screens shows positive opiates but also positive for cannabis methamphetamines and MDMA. Patient does have some signs of clinical and laboratory dehydration. But he is able to eat and drink. He was given IV fluids here. I discussed case with the hospitalist and he will be admitted. Lab Data Attestation: I reviewed the patient's lab results. Labs: Laboratory Results - last 24 hr 09/14/22 09/14/22 09/14/22 22:15 22:15 22:15 WBC 12.6 H RBC 6.23 H Hgb 17.3 H Hct 48.6 MCV 78.0 L MCH 27.8 MCHC 35.6 RDW Std Deviation 33.5 L RDW Coeff of Cecilio 11.9 Plt Count 345 MPV 9.5 Immature Gran % (Auto) 0.400 Neut % (Auto) 77.1 H Lymph % (Auto) 14.1 L [place] % (Auto) 8.1 Eos % (Auto) 0.1 Baso % (Auto) 0.2 Absolute Neuts (auto) 9.7 H Absolute Lymphs (auto) 1.77 Nucleated RBC % 0 Sodium 129 L Potassium 3.3 L Chloride 92 L Carbon Dioxide 26.0 Anion Gap 11 BUN 22 H Creatinine 1.14 Estim Creat Clear Calc 105.15 Est GFR (MDRD) Af Amer 99 Est GFR (MDRD) Non-Af 82 BUN/Creatinine Ratio 19.3 Glucose 115 H Calcium 9.9 Total Bilirubin 1.10 H AST 26 ALT 29 Alkaline Phosphatase 121 H Total Protein 8.9 H Albumin 4.7 Globulin 4.2 Albumin/Globulin Ratio 1.1 Urine Opiates Screen Urine Methadone Screen Ur Barbiturates Screen Ur Phencyclidine Scrn Ur Amphetamines Screen MDMA (Ecstasy) Screen U Benzodiazepines Scrn Urine Cocaine Screen U Cannabinoids Screen Ur Drug Screen Comment Ethyl Alcohol < 3.0 09/14/22 23:06 WBC RBC Hgb Hct MCV MCH MCHC RDW Std Deviation RDW Coeff of Cecilio Plt Count MPV Immature Gran % (Auto) Neut % (Auto) Lymph % (Auto) [place] % (Auto) Eos % (Auto) Baso % (Auto) Absolute Neuts (auto) Absolute Lymphs (auto) Nucleated RBC % Sodium Potassium Chloride Carbon Dioxide Anion Gap BUN Creatinine Estim Creat Clear Calc Est GFR (MDRD) Af Amer Est GFR (MDRD) Non-Af BUN/Creatinine Ratio Glucose Calcium Total Bilirubin AST ALT Alkaline Phosphatase Total Protein Albumin Globulin Albumin/Globulin Ratio Urine Opiates Screen POSITIVE H Urine Methadone Screen NEGATIVE Ur Barbiturates Screen NEGATIVE Ur Phencyclidine Scrn NEGATIVE Ur Amphetamines Screen POSITIVE H MDMA (Ecstasy) Screen POSITIVE H U Benzodiazepines Scrn NEGATIVE Urine Cocaine Screen NEGATIVE U Cannabinoids Screen POSITIVE H Ur Drug Screen Comment Ethyl Alcohol Management Discussion w/another healthcare provider: Hospitalist Discharge Plan Triage Chief Complaint: Substance Abuse ED Provider: Boston Menendez Dx/Rx/DC Orders Clinical Impression: Opiate addiction, Desire for detoxification, Mild dehydration Primary Care Provider: Stacy Nicholson Disposition Disposition: [facility] Care [facility] What to do if you have Problems For any increased pain, shortness of breath, bleeding, nausea or vomiting, chestpain, or any unexpected problems, contact your Primary Care Provider. Call [facility] ([phone]) or report to the closest Emergency Room. Call 911 if necessary. 09/15/22 0101 <Electronically signed by Boston Menendez MD> Cosigner Signature (if applicable): CC: EVELYN Nicholson ~ Signed [facility] Work Phone: [phone]) 318-524302-09-[address] Saucedo [facility] May 02, 2022 12:19am Note Date/Time May 01, 2022 1 0:34pm [facility] Medical Records Department [address] [place] [address] Emergency Department Summary 05/01/22 MR#: [id number] Acct: [id number] Name: BRYAN LUNDBERG Rep #:[id number] : 1995 26 From: Akash Saucedo DO PCP: EVELYN Phan Status:REG E R Location: ED HPI History of Present Illness Chief Complaint: Overdose Narrative Narrative: 26-year-old male overdosed at home on opioids. He states he uses heroin typically but he thinks is fentanyl. States that all is available anymore. Patient states he had not used in a week because he was trying to quit but overdosed tonight unintentionally. He was given Narcan and did awaken. He is not sure if he did any other drugs. He does not drink alcohol. He states that he has been in rehab several times and has completed it but always falls back onit. He believes it is worse during the winter when he has idle time. In the summer he seems to be able to keep his ear. Patient request detox today [facility] Medical History Asthma Tobacco abuse Home Medications albuterol 90 mcg/actuation aerosol inhaler 90 mcg inhalation 03/02/22 [History Last Taken Unknown] Allergy/AdvReac Type Severity Reaction Status Date / Time amoxicillin trihydrate Allergy Rash Verified 05/01/22 18:55 [From Augmentin] potassium clavulanate Allergy Rash Verified 05/01/22 18:55 [From Augmentin] Family History Brother Hemophilia Father Diabetes Surgical History History of tonsillectomy Social History Smoking Status: Former smoker alcohol intake: current alcohol intake frequency: holidays/special occasions only substance use type: marijuana, heroin, opiates and other details: Fentanyl ROS ROS ED Constitutional Constitutional ED: Denies chills or fever(s) Eyes Eyes: Denies change in vision or diplopia ENT ENT ED: Denies rhinorrhea or sore throat Cardiovascular Cardiovascular: Denies chest pain or palpitations Respiratory/Chest Respiratory/Chest: Denies cough or dyspnea Gastrointestinal Gastrointestinal: Denies abdominal pain or constipation Genitourinary Genitourinary ED: Denies dysuria Musculoskeletal Musculoskeletal: Denies arthralgias Integumentary Denies abscess Neurologic Neurologic: Denies headache(s) or paresthesias Psychiatric Psychiatric: Denies depression, suicidal ideation or suicidal thoughts Endocrine Endocrinology: Denies cold intolerance or heat intolerance EXAM Physical Exam Const Vital Signs: 05/01/22 18:55 05/01/22 22:44 Temperature 97.4 F L Temperature Source Temporal Pulse Rate 137 H 110 H Respiratory Rate 24 H Blood Pressure 148/86 H 134/94 H Blood Pressure Mean 106 107 Pulse Ox 100 98 Oxygen Delivery Method Room Air Room Air Positive well nourished General Appearance ED: NAD; Negative for pallor HEENT Reports moist mucous membranes Eyes PERRL and EOMs intact bilaterally Neck no lymphadenopathy Resp normal respiratory effort and clear to auscultation bilaterally Auscultation: Negative for rales, rhonchi or wheezes Cardio regular rhythm Rate: tachycardic GI soft to palpation and non-tender Back/Spine no CVA tenderness Neuro oriented x3 and CN's II-XII intact bilaterally Sensorium / Orientation: alert Psych mental status grossly normal Skin General Skin Exam: Negative for jaundice or pallor MDM MDM MDM Narrative Medical decision making narrative: Patient presenting after overdose. He believes he snorted fentanyl. He required Narcan. He has been awake and alert since. He request detox. Medicalclearance labs were obtained. CBC to assess white blood cell count, hemoglobin,differential. BMP to assess renal function, electrolytes, CO2, anion gap. EtOHwas obtained as well as urine drug screen. Patient significantly tachycardic onarrival. He was ordered 2 L of IV fluids. Because of his tachypnea and tachycardia I did obtain a chest x-ray to rule out pneumonia. On my interpretation this is negative for acute process. CBC shows a leukocytosis of 24.4. Hemoglobin stable at 12.2. Platelets normal. Renal function is normal with slight prerenal azotemia. Electrolytes within normal limits. EtOH negative. Urinalysis negative for infection. Drug screen was positive for amphetamines today and cannabinoids. Discussed the patient with the hospitalistand he did not believe the patient would need to be admitted if he is not going to be in withdrawal. The patient is very adamant that he does not think he is going through withdrawal. At this point I talked to him about following up withhis counselor at [facility]. He was amenable to this. I spoke with him at length withhis parents as well. They will take him home. Impression: 1. Opioid abuse 2. Opioid overdose 3. Leukocytosis 4. Tachycardia Lab Data Attestation: I reviewed the patient's lab results. Labs: Laboratory Results - last 24 hr 05/01/22 05/01/22 05/01/22 23:29 23:29 23:29 WBC 24.4 H RBC 4.20 L Hgb 12.2 L Hct 35.5 L MCV 84.5 MCH 29.0 MCHC 34.4 RDW Std Deviation 40.4 RDW Coeff of Cecilio 13.1 Plt Count 437 MPV 8.5 Immature Gran % (Auto) 1.600 H Neut % (Auto) 83.1 H Lymph % (Auto) 6.9 L [place] % (Auto) 8.2 Eos % (Auto) 0.0 Baso % (Auto) 0.2 Absolute Neuts (auto) 20.3 H Absolute Lymphs (auto) 1.68 Nucleated RBC % 0 [address] Review May foll Sodium 145 Potassium 4.0 Chloride 114 H Carbon Dioxide 27.0 Anion Gap 4 L BUN 34 H Creatinine 1.29 Estim Creat Clear Calc 91.86 Est GFR (MDRD) Af Amer 86 Est GFR (MDRD) Non-Af 71 BUN/Creatinine Ratio 26.4 H Glucose 104 Calcium 7.8 L Urine Color Urine Clarity Urine pH Ur Specific [place] Urine Protein Urine Glucose (UA) Urine Ketones Urine Occult Blood Urine Nitrite Urine Bilirubin Urine Urobilinogen Ur Leukocyte Esterase Urine RBC Urine WBC Ur Squamous Epith Cells Amorphous Sediment Urine Bacteria Urine Mucus Urine Opiates Screen Urine Methadone Screen Ur Barbiturates Screen Ur Phencyclidine Scrn Ur Amphetamines Screen MDMA (Ecstasy) Screen U Benzodiazepines Scrn Urine Cocaine Screen U Cannabinoids Screen Ur Drug Screen Comment Ethyl Alcohol < 3.0 05/01/22 05/01/22 23:53 23:53 WBC RBC Hgb Hct MCV MCH MCHC RDW Std Deviation RDW Coeff of Cecilio Plt Count MPV Immature Gran % (Auto) Neut % (Auto) Lymph % (Auto) [place] % (Auto) Eos % (Auto) Baso % (Auto) Absolute Neuts (auto) Absolute Lymphs (auto) Nucleated RBC % Diff Path Review Sodium Potassium Chloride Carbon Dioxide Anion Gap BUN Creatinine Estim Creat Clear Calc Est GFR (MDRD) Af Amer Est GFR (MDRD) Non-Af BUN/Creatinine Ratio Glucose Calcium Urine Color Yellow Urine Clarity Clear Urine pH 6.0 Ur Specific [place] 1.020 Urine Protein 100 H Urine Glucose (UA) Normal Urine Ketones 5 H Urine Occult Blood 150 H Urine Nitrite Negative Urine Bilirubin Negative Urine Urobilinogen Normal Ur Leukocyte Esterase Negative Urine RBC 5-10 SEEN Urine WBC 5-10 SEEN Ur Squamous Epith Cells 0 SEEN Amorphous Sediment 1+ Urine Bacteria 1+ Urine Mucus 0 SEEN Urine Opiates Screen NEGATIVE Urine Methadone Screen NEGATIVE Ur Barbiturates Screen NEGATIVE Ur Phencyclidine Scrn NEGATIVE Ur Amphetamines Screen POSITIVE H MDMA (Ecstasy) Screen NEGATIVE U Benzodiazepines Scrn NEGATIVE Urine Cocaine Screen NEGATIVE U Cannabinoids Screen POSITIVE H Ur Drug Screen Comment Ethyl Alcohol Radiography Diagnostic Testing: Clinical Impression(s) from Imaging Studies Chest X-Ray 05/01/22 23:43 IMPRESSION: No radiographic evidence of acute cardiopulmonary disease. Electronically Signed: Bernard Monet MD at 0:04 EST , Discharge Plan Triage Chief Complaint: Overdose ED Provider: Akash Saucedo Dx/Rx/DC Orders Prescriptions: No Action albuterol 90 mcg/actuation Aerosol 90 mcg INHALATION Primary Care Provider: Stacy Nicholson Referrals: Stacy Nicholson, PA [Primary Care Provider] - What to do if you have Problems For any increased pain, shortness of breath, bleeding, nausea or vomiting, chestpain, or any unexpected problems, contact your Primary Care Provider. Call [facility] ([phone]) or report to the closest Emergency Room. Call 911 if necessary. 05/02/22 0019 <Electronically signed by Akash Saucedo DO> Cosigner Signature (if applicable): CC: EVELYN Nicholson ~ Signed [facility] Work Phone: 1(900) 724-231802-02-2023 [facility] Medical Records Department [address] [place] [id number] Discharge Summary 04/25/22 1213 MR#: [id number] Acct: [id number] Name: BRYAN LUNDBERG Rep #: [id number] : 1995 26 From: Yudelka Hernandez MD PCP: EVELYN Phan Status:DIS IN Location: [facility] [id number] Providers Date of Admission: 04/23/22 Date of Discharge: 04/25/22 Primary Care Physician: EVELYN Phan Reason For Visit: ACUTE OPIATE WITHDRAWAL Diagnosis Discharge Diagnosis (1) Polysubstance (including opioids) dependence with physiol dependence: Status: Acute Code(s): F19.20 - Other psychoactive substance dependence, uncomplicated (2) Abdominal pain, vomiting, and diarrhea: Status: Acute Code(s): R10.9 - Unspecified abdominal pain; R11.10 - Vomiting, unspecified; R19.7 - Diarrhea, unspecified (3) Acute prerenal azotemia: Status: Acute Code(s): N19 - Unspecified kidney failure (4) Acute opioid withdrawal: Status: Acute Code(s): F11.93 - Opioid use, unspecified with withdrawal Plan 1. Acute opioid withdrawal, patient with the use of heroin/fentanyl 2. Polysubstance use, advise cessation 3. SEAN resolved Medications at Discharge Home Medications albuterol 90 mcg/actuation aerosol inhaler 90 mcg inhalation 03/02/22 Hospital Course Summary of Care Provided Minutes Spent on Discharge: 20 Hospital Course: 20-year-old male with a history of polysubstance use presented for opioid detox. He completed a partial opioid taper but was doing much better and was no longer feeling withdrawal symptoms and requested to be discharged with outpatient follow-up. Discussed with [facility] addiction home care physical therapist Nikko and it was deemed discharge and follow-up with 180 on an outpatient basis. On day of discharge patient no complaints. Of note during hospitalization however on presentation he did report some abdominal pain and had a minimally elevated white blood cell count and was given fluids, in the a.m. he reported abdominal pain and burning and was sent for CT scan as lab work-up on remarkable and CT scan also unrevealing. Initially had SEAN but that resolved with fluids and oral intake. Abdominal burning and discomfort resolved independently and patient discharged in stable condition for follow-up with 180 Physical Exam Narrative General: Alert, oriented, no apparent distress HEENT: Atraumatic, normocephalic Eyes: extraocular movements grossly intact Neck: Supple Respiratory: normal respiratory effort Cardiovascular: no edema appreciated GI: nondistended Extremities: Moving all extremities Neuro: No overt focal neurological deficits Psych: Cooperative Medical Records Data Medical Nutrition Assessment Dietitian: Malnutrition Criteria Met Start: 04/24/22 14:48 Freq: Status: Active Protocol: Document 04/24/22 14:48 AG (Rec: 04/24/22 14:48 AG [id number]) Nutrition Malnutrition Evidence of Malnutrition Exists Yes Malnutrition (moderate): Social/Behavioral/ Environmental Evidenced By Suboptimal Energy Intake ( Moderate),Physical Changes ( Moderate) Recommendation Dietitian Recommendations/Changes continue regular diet as tolerated; will add ensure plus high protein 120mL 4x/day w/ medpass for additional calories/protein if consumed Weight / BMI Weight Weight: 68.946 kg Body Mass Index (BMI) 19.5 ABG / Lab / Microbiology Data Result Diagrams: 04/25/22 04:40 04/25/22 04:40 Laboratory: Laboratory Results - last 24 hr 04/25/22 04:40: WBC 9.7, RBC 5.21, Hgb 14.8, Hct 43.0, MCV 82.5, MCH 28.4, MCHC 34.4, RDW Std Deviation 37.7, RDW Coeff of Cecilio 12.4, Plt Count 432, MPV 8.4, Immature Gran % (Auto) 0.400, Neut % (Auto) 52.5, Lymph % (Auto) 36.6, [place] % (Auto) 9.0, Eos % (Auto) 1.0, Baso % (Auto) 0.5, Absolute Neuts (auto) 5.1, Absolute Lymphs (auto) 3.55, Nucleated RBC % 0 04/25/22 04:40: Sodium 131 L, Potassium 3.6, Chloride 96 L, Carbon Dioxide 27.0, Anion Gap 8, BUN 24 H, Creatinine 1.01, Estim Creat Clear Calc 108.08, Est GFR (MDRD) Af Amer 114, Est GFR (MDRD) Non-Af 95, BUN/Creatinine Ratio 23.8 H, Glucose 100, Calcium 8.8, Total Bilirubin 1.30 H, AST 11 L, ALT 18, Alkaline Phosphatase 83, Total Protein 7.3, Albumin 3.9, Globulin 3.4, Albumin/Globulin Ratio 1.1 Radiography Diagnostic Testing: Radiology Impression Abdomen/Pelvis CT 04/24/22 11:28 IMPRESSION: Normal enhanced CT of the abdomen and pelvis. Electronically Signed: Dav Suazo MD at 13:18 EST Reading Location ID and State: [facility] / [place] , Service support , D/C Instructions Discharge Diet: No restrictions Meaningful Use Info Meaningful Use Diagnoses (Choose all that apply): None applicable Discharge Plan Admission Admit Date/Time: 04/23/22 22:22 Primary Reason for Your (more content not included)...[facility] 04-24-[address] Hernandez [facility] April 24, 2022 4:30pm Note Date/Time April 24, 2022 7 :37am [facility] Medical Records Department [address] [place] [address] Progress Note - Hospitalist 04/24/22 0736 MR#: [id number] Acct: [id number] Name: BRYAN LUNDBREG Rep #:[id number] : 1995 26 From: Yudelka Hernandez MD PCP: EVELYN Phan Status:ADM I N Location: [place] [address] Subjective Subjective Reports having some burning abdominal pain without anything making it particularly better or worse, feels stomach is Upset not actively vomiting. Hasno other physical complaints. Objective Data Objective Data Vital Signs: Vital Signs Temp Pulse Resp BP Pulse Ox O2 Del Method 97.8 F 87 20 H 144/88 H 99 Room Air 04/24/22 02:30 04/24/22 02:30 04/24/22 02:30 04/24/22 02:30 04/24/22 02:30 04/24/22 02:30 Oxygen Delivery Method Room Air Weight: 68.946 kg Body Mass Index (BMI) 19.5 Intake & Output: Intake and Output for Last 24 Hours 04/22/22 04/23/22 04/24/22 23:59 23:59 23:59 Intake Total 1000 / 1000 Balance 1000 / 1000 Lab / Micro Data Result Diagrams: 04/24/22 04:18 04/24/22 04:18 Labs: Laboratory Results - last 24 hr 04/23/22 19:50: Sodium 131 L, Potassium 3.7, Chloride 92 L, Carbon Dioxide 27.0,Anion Gap 12, BUN 43 H, Creatinine 1.30, Estim Creat Clear Calc 86.35, Est GFR (MDRD) Af Amer 86, Est GFR (MDRD) Non-Af 71, BUN/Creatinine Ratio 33.1 H, Glucose 113 H, Calcium 9.7, Total Bilirubin 1.10 H, Direct Bilirubin 0.25, AST 16, ALT 22, Alkaline Phosphatase 105, Total Protein 9.7 H, Albumin 5.0, Globulin4.7 H, Lipase 122 04/23/22 20:55: Urine Color Yellow, Urine Clarity Clear, Urine pH 6.0, Ur Specific Bristow 1.025, Urine Protein 100 H, Urine Glucose (UA) Normal, Urine Ketones 5 H, Urine Occult Blood Negative, Urine Nitrite Negative, Urine Bilirubin Negative, Urine Urobilinogen Normal, Ur Leukocyte Esterase Negative, Urine RBC 0 SEEN, Urine WBC 0-5 SEEN, Ur Squamous Epith Cells 0 SEEN, Urine Bacteria 0 SEEN, Hyaline Casts 0-5 SEEN, Urine Mucus 0 SEEN 04/23/22 22:00: Urine Opiates Screen NEGATIVE, Urine Methadone Screen NEGATIVE, Ur Barbiturates Screen NEGATIVE, Ur Phencyclidine Scrn NEGATIVE, Ur AmphetaminesScreen POSITIVE H, MDMA (Ecstasy) Screen POSITIVE H, U Benzodiazepines Scrn NEGATIVE, Urine Cocaine Screen NEGATIVE, U Cannabinoids Screen POSITIVE H, Ur Drug Screen Comment 04/23/22 22:05: Ethyl Alcohol < 3.0 04/24/22 04:18: WBC 11.5 H, RBC 5.49, Hgb 15.6, Hct 45.2, MCV 82.3, MCH 28.4, MCHC 34.5, RDW Std Deviation 38.4, RDW Coeff of Cecilio 12.8, Plt Count 451 H, MPV 8.5, Immature Gran % (Auto) 0.400, Neut % (Auto) 65.6, Lymph % (Auto) 24.5, [place]% (Auto) 9.0, Eos % (Auto) 0.3, Baso % (Auto) 0.2, Absolute Neuts (auto) 7.5, Absolute Lymphs (auto) 2.81, Nucleated RBC % 0 04/24/22 04:18: Sodium 130 L, Potassium 3.7, Chloride 95 L, Carbon Dioxide 24.0,Anion Gap 11, BUN 38 H, Creatinine 0.99, Estim Creat Clear Calc 110.27, Est GFR (MDRD) Af Amer 117, Est GFR (MDRD) Non-Af 97, BUN/Creatinine Ratio 38.4 H, Glucose 113 H, Calcium 8.7, Total Bilirubin 1.20 H, AST 16, ALT 19, Alkaline Phosphatase 89, Total Protein 7.8, Albumin 4.0, Globulin 3.8, Albumin/Globulin Ratio 1.1 Rhythm Strip Rhythm Strip: Sinus Tach Rate: 115 Ectopy: None Physical Exam Narrative General: Alert, oriented, appears slightly uncomfortable HEENT: Atraumatic, normocephalic Eyes: Anicteric, normal conjunctiva, extraocular movements grossly intact Neck: Supple Respiratory: Clear to auscultation bilaterally, normal respiratory effort Cardiovascular: Regular rate and rhythm GI: Soft, nondistended, does report some generalized tenderness more so in the upper region of abdomen with no rebound, guarding, rigidity Extremities: No edema Musculoskeletal: Moving all extremities Neuro: No overt focal neurological deficits Skin: No rashes appreciated Psych: Cooperative Assessment & Plan Assessment/Plan (1) Polysubstance (including opioids) dependence with physiol dependence: (2) Abdominal pain, vomiting, and diarrhea: (3) Acute prerenal azotemia: (4) Acute opioid withdrawal: PLAN: Plan 1. Acute opioid withdrawal, patient with the use of heroin/fentanyl - Subutex taper initiated - As needed Tylenol, ibuprofen, bowel regimen, gabapentin, Bentyl, Vistaril, methocarbamol, clonidine - As needed trazodone nightly - As needed antiemetics -Once patient begins to clinically improve will discuss further discharge planning #Abdominal pain Nonspecific, reports burning somewhat generalized pain White blood cell count 11.5 which is minimally elevated but no left shift, totalbili is 1.2 several days ago was 1.1 but has been elevated fairly consistently, AST ALT within normal limits and alk phos within normal limits Lipase 122 No rebound, guarding, rigidity on exam Did obtain CT abdomen given his reported severity of complaints and no acute process found May be having abdominal pain due to opioid withdrawal Continue Subutex We will check a.m. labs as well and continue supportive care 2. Polysubstance use, advise cessation 3. Acute kidney injury, patient with admitting creatinine 1.3, previous creatinine 0.77 Patient received IV fluids in the ED; will encourage liberal oral intake Will trend labs in a.m. 2/: Resolved 4. DVT PPx- Low risk; early ambulation recommended Time spent in the patient's overall evaluation,decision-making process, review of diagnostic data, adjustment of management, discussion with other providers, nursing nursing and ancillary staff involved in patient's care documentation, 30minutes Charges/Coding Visit Charges Inpatient E&M: 12103 Subs Hosp L2 04/24/22 1630 <Electronically signed by Yudelka Hernandez MD> Cosigner Signature (if applicable): CC: ~ Signed [facility] Work Phone: 1(979) 863-965602-01-2023 History and physical note Author Dr. Chirinos [facility] April 23, 2022 10:52pm Note Date/Time April 23, 2022 1 0:26pm [facility] Medical Records Department [address] [place] [address] H&P Exam - Hospitalist 04/23/226 MR#: [id number] Acct: [id number] Name: TAMIKABRYAN Rep #:[id number] : 1995 26 From: Tory Chirinos MD PCP: EVELYN Phan Status:ADM I N Location: [place] [address] HPI - General General Date of Admission: 04/23/22 Date of Service: 04/23/22 Chief Complaint: Epigastric pain, request for tox from heroin/fentanyl HPI Narrative BRYAN LUNDBERG, is a 26 M who presents with the above. Patient has past medical history of polysubstance use -daily heroin/fentanyl as well as marijuana. He last used fentanyl/heroin about 2 days ago, but about $20 worth. He comes in complains of abdominal pain especially in the epigastric region. He was last indetox a year ago in March 2021. He denies smoking cigarettes. Denies any fever or chills no nausea vomiting. At time of being seen, he denied any new complaints. He did receive Imodium, Bentyl, morphine, and Zofran in the emergency room as well as IV fluids In the ED, his blood pressure was 142/117, heart rate 120, respiratory rate was 14, temperature 98F, oxygen sat was 95% on room air. Admitting blood work showed sodium 131, potassium 3.7, chloride 93, bicarbonate 27, BUN 43, creatinine 1.30, previous creatinine 0.77. UA was unremarkable. Urine tox was positive for amphetamines, ecstasy and cannabinoids. [facility] Medical History Asthma Tobacco abuse Home Medications albuterol 90 mcg/actuation aerosol inhaler 90 mcg inhalation 03/02/22 [History Last Taken Unknown] Allergy/AdvReac Type Severity Reaction Status Date / Time amoxicillin trihydrate Allergy Rash Verified 03/02/22 08:03 [From Augmentin] potassium clavulanate Allergy Rash Verified 03/02/22 08:03 [From Augmentin] Family History Brother Hemophilia Father Diabetes Surgical History History of tonsillectomy Social History (Updated 04/23/22 @ 22:[address] Tory Chirinos MD) alcohol intake: current alcohol intake frequency: holidays/special occasions only substance use type: marijuana, heroin, opiates and other details: Fentanyl ROS ROS Narrative Constitutional:Denies: Anorexia, Chills, Fever, Night Sweats, Weight Change Eyes: Denies: Blurred vision, Cataracts, Conjunctivae Inflammation, Pain, Redness, Vision Change HEENT: Denies: Difficulty Hearing, Difficulty Swallowing, Head Aches, Hearing Changes, Sinus Congestion, Sinus Drainage Cardiovascular: Denies: Chest Pain, Orthopnea, Palpitations Respiratory: Denies: Cough, Shortness of breath at rest, Sputum production Gastrointestinal: See HPI per Genitourinary: Denies: Dysuria Musculoskeletal: Denies: Joint Pain, Joint stiffness, Joint swelling, Joint Tenderness Skin: Denies: Rash, Wounds Neurological: Denies: Numbness, Tingling, Focal weakness Vital Signs Vital Signs Vital Signs: 04/23/22 18:52 Temperature 98 F Temperature Source Temporal Pulse Rate 123 H Respiratory Rate 14 Blood Pressure 142/117 H Blood Pressure Mean 125 Pulse Ox 95 Oxygen Delivery Method Room Air Weight Weight: 70.9 kg Body Mass Index (BMI) 20.6 Physical Exam Narrative Physical exam: General: Alert, Oriented x3, Cooperative, appears restless HEENT: Atraumatic Oral: Moist Mucosa Neck: Supple Lungs: Clear to auscultation Cardiovascular: HS I+II, regular, no murmurs Abdomen: Bowel Sounds Present, Soft, Non Tender Extremities: No edema Skin: No rashes, No breakdown Neurological: Grossly intact Psych/Mental Status: Appropriate Results Lab / Micro Data Result Diagrams: 04/23/22 19:50 Labs: Laboratory Results - last 24 hr 04/23/22 19:50: Sodium 131 L, Potassium 3.7, Chloride 92 L, Carbon Dioxide 27.0,Anion Gap 12, BUN 43 H, Creatinine 1.30, Estim Creat Clear Calc 86.35, Est GFR (MDRD) Af Amer 86, Est GFR (MDRD) Non-Af 71, BUN/Creatinine Ratio 33.1 H, Glucose 113 H, Calcium 9.7, Total Bilirubin 1.10 H, Direct Bilirubin 0.25, AST 16, ALT 22, Alkaline Phosphatase 105, Total Protein 9.7 H, Albumin 5.0, Globulin4.7 H, Lipase 122 04/23/22 20:55: Urine Color Yellow, Urine Clarity Clear, Urine pH 6.0, Ur Specific Bristow 1.025, Urine Protein 100 H, Urine Glucose (UA) Normal, Urine Ketones 5 H, Urine Occult Blood Negative, Urine Nitrite Negative, Urine Bilirubin Negative, Urine Urobilinogen Normal, Ur Leukocyte Esterase Negative, Urine RBC 0 SEEN, Urine WBC 0-5 SEEN, Ur Squamous Epith Cells 0 SEEN, Urine Bacteria 0 SEEN, Hyaline Casts 0-5 SEEN, Urine Mucus 0 SEEN 04/23/22 22:00: Ur Drug Screen Comment Rhythm Strip Rhythm Strip: Sinus Tach Rate: 115 Ectopy: None Assessment & Plan Assessment/Plan (1) Polysubstance (including opioids) dependence with physiol dependence: (2) Abdominal pain, vomiting, and diarrhea: (3) Acute prerenal azotemia: (4) Acute opioid withdrawal: PLAN: Plan 1. Acute opioid withdrawal, patient with the use of heroin/fentanyl Last use was 2 days prior to admission Admit to [facility], start on Subutex withdrawal protocol 2. Polysubstance use, advised to quit 3. Acute kidney injury, patient with admitting creatinine 1.3, previous creatinine 0.77 Patient received IV fluids in the ED; will encourage liberal oral intake Will trend labs in a.m. 4. DVT PPx- Low risk; early ambulation recommended Charges/Coding Visit Charges Inpatient E&M: 37019 Init Hosp L2 04/23/22 225 <Electronically signed by Tory Chirinos MD> Cosigner Signature (if applicable): CC: EVELYN Nicholson; Dr. Tory Chirinos MD~ Signed [facility] Work Phone: [phone]) 529-893302-01-[address] Cha [facility] April 23, 2022 10:26pm Note Date/Time April 23, 2022 8 :34pm [facility] Medical Records Department [address] [place] [address] Emergency Department Summary 04/23/22 MR#: [id number] Acct: [id number] Name: BRYAN LUNDBERG Rep #:[id number] : 1995 26 From: Fam Cha MD PCP: EVELYN Phan Status:REG E R Location: ED HPI HPI - GI History of Present Illness Chief Complaint: Abd Pain Detail of Chief Complaint: Abdominal pain with vomiting and diarrhea Informant: patient Abdominal Pain/Flank Pain Onset: Days (Days ago) Context: Sudden Onset Timing: Continuous Quality: - (Pain) Location: Epigastric (Predominantly epigastrium) Current Severity: Moderate Maximum Severity: Severe Worsened by: Nothing Relieved by: Nothing Nausea/Vomiting/Emesis GI Symptom: Positive for Nausea and Vomiting Onset: Yesterday Episodes: 3 Diarrhea/Melena/Hematochezia GI Symptom: Positive for Diarrhea; Negative for Melena or Hematochezia Onset: Yesterday Stool Quality: Positive for Watery; Negative for Mucous, Black, Maroon or BRB per rectum Severity: Moderate Associated Symptoms Associated Symptoms: Negative for Dysuria, Frequency, Hematuria or Urgency Narrative Narrative: Patient is a 26-year-old male with history of hyperactive airway disease who presents with abdominal pain that is worse in the epigastric area. He states its pain. He is not able describe it any more than pain. He denies intoleranceto greasy or fried foods. Mother has history of cholelithiasis and is status postcholecystectomy. He denies fever, chills night sweats. He denies headache,visual, ocular auditory symptoms. He denies cardiac or respiratory symptoms. He denies any ill contacts. There is no history of inflammatory bowel disorder. He denies eating anything that tasted unusual. He states he has not been on antibiotics in the last month. He has not taken anything for the pain, vomitingor diarrhea. He denies myalgias or arthralgias. He denies joint swelling. He denies rash. Prior similar symptoms: Yes Recent Illness/Hospitalization: No PFSH [facility] Medical History Asthma Tobacco abuse Home Medications albuterol 90 mcg/actuation aerosol inhaler 90 mcg inhalation 03/02/22 [History Last Taken Unknown] Allergy/AdvReac Type Severity Reaction Status Date / Time amoxicillin trihydrate Allergy Rash Verified 03/02/22 08:03 [From Augmentin] potassium clavulanate Allergy Rash Verified 03/02/22 08:03 [From Augmentin] Family History Brother Hemophilia Father Diabetes Surgical History History of tonsillectomy Social History Smoking Status: Current every day smoker tobacco type: cigarettes alcohol intake: current alcohol intake frequency: holidays/special occasions only substance use type: marijuana, heroin, opiates and other details: Fentanyl ROS ROS ED Constitutional Constitutional ED: Denies chills, fever(s), subjective, sweats or weight loss ENT ENT ED: Denies ear pain, rhinorrhea or sore throat Cardiovascular Cardiovascular: Denies chest pain or palpitations Respiratory/Chest Respiratory/Chest: Denies cough, dyspnea or dyspnea on exertion Gastrointestinal Gastrointestinal: Reports abdominal pain, diarrhea, nausea and vomiting; Denies constipation or melena Genitourinary Genitourinary ED: Denies dysuria, hematuria or other Musculoskeletal Musculoskeletal: Denies arthralgias, back pain, myalgias or neck pain Integumentary Denies rash Neurologic Neurologic: Denies headache(s), paresthesias or weakness Endocrine Endocrinology: Denies polydipsia, polyphagia or polyuria Hematologic/Lymphatic Hematologic/Lymphatic: Denies easy bleeding or easy bruising Allergic/Immunologic Allergic/Immunologic ED: Denies mouth swelling or tongue swelling EXAM Physical Exam Const Vital Signs: 04/23/22 18:52 Temperature 98 F Temperature Source Temporal Pulse Rate 123 H Respiratory Rate 14 Blood Pressure 142/117 H Blood Pressure Mean 125 Pulse Ox 95 Oxygen Delivery Method Room Air Positive well nourished and well developed Constitutional Narrative: Patient appears uncomfortable. General Appearance ED: well developed; Negative for pallor HEENT Reports TM's clear and dry mucous membranes HEENT Narrative: Nares patent. Uvula midline. normocephalic and atraumatic Tympanic Membrane ED: Yes TM's clear Mouth ED: Yes dry mucous membranes Mouth: dry mucous membranes Eyes PERRL and EOMs intact bilaterally General Eye ED: Negative for pale conjunctiva or scleral icterus Neck no lymphadenopathy, supple and no JVD Resp normal respiratory effort and clear to auscultation bilaterally Cardio regular rhythm, S1 normal heart sound, S2 normal heart sound and no murmurs Rate: tachycardic GI no masses; Negative for non-tender or non-distended GI Narrative: There is tympany throughout. Negative clinical Hoyt sign Auscultation: hypoactive bowel sounds Palpation: tender epigastric and guarding other (Epigastric region); Negative for soft, rigid, hepatomegaly, splenomegaly, hernia, mass, pulsatile mass or rebound tenderness present Back/Spine no CVA tenderness Thoracic Spine / Upper Back: Negative for thoracic spinal tenderness Lumbar Spine / Lower Back: Negative for lumbar spinal tenderness Extremity full ROM General Extremety ED: Negative for edema or tenderness General Extremity: Negative for edema Neuro CN's II-XII intact bilaterally, moves all extremities and no sensory deficits noted Sensorium / Orientation: alert Psych mental status grossly normal and thought process normal Skin no wounds General Skin Exam: Negative for jaundice or pallor MDM MDM MDM Narrative Medical decision making narrative: Patient states he uses marijuana 2-3 times a week. He reports use of opiates 1-2 times a week. He last used 3 days ago. He states he has not had any recent alcohol use. With epigastric pain nausea, vomiting diarrhea suspect this may be viral in etiology. Patient does have significant pain. Will obtain CBC to assess white count and H&H. Liver profile to assess transaminases as well as lipase to evaluate for liver inflammation or pancreatitis. BMP to assess renal function, rule out hypokalemia and assess CO2 anion gap. IV was established. He received 1 L normal saline. He was treated with Bentyl,morphine and Zofran. Since there is no history of blood or mucus in the stool and no history of pseudomembranous enterocolitis he also received Imodium. Review of prior records indicates he was admitted 1 year ago for opiate withdrawal. At that time he was hypertensive and had a rapid heart rate. Urinetox was not obtained since patient admits to multiple drug uses. This will not clarify when he last used. Lab Data Attestation: I reviewed the patient's lab results. Lab results narrative: Sodium is 131 with a chloride of 92. CO2 anion gap is normal. Creatinine is elevated 1.30 however GFR 71. BUN/creatinine ratio is 33:1 which is consistent with dehydration. Urine reveals an elevated specific gravity and ketones. There is no evidence of an. Labs: Laboratory Results - last 24 hr 04/23/22 04/23/22 04/23/22 19:50 20:55 22:00 Sodium 131 L Potassium 3.7 Chloride 92 L Carbon Dioxide 27.0 Anion Gap 12 BUN 43 H Creatinine 1.30 Estim Creat Clear Calc 86.35 Est GFR (MDRD) Af Amer 86 Est GFR (MDRD) Non-Af 71 BUN/Creatinine Ratio 33.1 H Glucose 113 H Calcium 9.7 Total Bilirubin 1.10 H Direct Bilirubin 0.25 AST 16 ALT 22 Alkaline Phosphatase 105 Total Protein 9.7 H Albumin 5.0 Globulin 4.7 H Lipase 122 Urine Color Yellow Urine Clarity Clear Urine pH 6.0 Ur Specific Bristow 1.025 Urine Protein 100 H Urine Glucose (UA) Normal Urine Ketones 5 H Urine Occult Blood Negative Urine Nitrite Negative Urine Bilirubin Negative Urine Urobilinogen Normal Ur Leukocyte Esterase Negative Urine RBC 0 SEEN Urine WBC 0-5 SEEN Ur Squamous Epith Cells 0 SEEN Urine Bacteria 0 SEEN Hyaline Casts 0-5 SEEN Urine Mucus 0 SEEN Ur Drug Screen Comment Rhythm Strip Rhythm Strip: Sinus Tach Rate: 115 Ectopy: None Treatment and Re-Evaluation Narrative: He states he does feel better. Discussed his illicit drug use. Asked if he would like help regarding the use of opiates and marijuana. He states he would. In light of this we will contact hospitalist for admission. Discharge Plan Dx/Rx/DC Orders Clinical Impression: Abdominal pain, vomiting, and diarrhea, Opiate addiction, Acute prerenal azotemia, Ketosis, Cannabis abuse, Sinus tachycardia Disposition Disposition: Acute Care Hospital [facility] What to do if you have Problems For any increased pain, shortness of breath, bleeding, nausea or vomiting, chestpain, or any unexpected problems, contact your Primary Care Provider. Call [facility] ([phone]) or report to the closest Emergency Room. Call 911 if necessary. 04/23/222225 <Electronically signed by Fam Cha MD> Cosigner Signature (if applicable): CC: EVELYN Nicholson ~ Signed [facility] Work Phone: [phone] 602-519401-31-[address] Cha [facility] April 23, 2022 10:26pm Note Date/Time April 23, 2022 8 :34pm [facility] Medical Records Department [address] [place] [id number] Emergency Department Summary 04/23/22 MR#: [id number] Acct: [id number] Name: BRYAN LUNDBERG Rep #:[id number] : 1995 From: Fam Cha MD PCP: EVELYN Phan Status:REG E R Location: ED HPI HPI - GI History of Present Illness Chief Complaint: Abd Pain Detail of Chief Complaint: Abdominal pain with vomiting and diarrhea Informant: patient Abdominal Pain/Flank Pain Onset: Days (Days ago) Context: Sudden Onset Timing: Continuous Quality: - (Pain) Location: Epigastric (Predominantly epigastrium) Current Severity: Moderate Maximum Severity: Severe Worsened by: Nothing Relieved by: Nothing Nausea/Vomiting/Emesis GI Symptom: Positive for Nausea and Vomiting Onset: Yesterday Episodes: 3 Diarrhea/Melena/Hematochezia GI Symptom: Positive for Diarrhea; Negative for Melena or Hematochezia Onset: Yesterday Stool Quality: Positive for Watery; Negative for Mucous, Black, Maroon or BRB per rectum Severity: Moderate Associated Symptoms Associated Symptoms: Negative for Dysuria, Frequency, Hematuria or Urgency Narrative Narrative: Patient is a 26-year-old male with history of hyperactive airway disease who presents with abdominal pain that is worse in the epigastric area. He states its pain. He is not able describe it any more than pain. He denies intoleranceto greasy or fried foods. Mother has history of cholelithiasis and is status postcholecystectomy. He denies fever, chills night sweats. He denies headache,visual, ocular auditory symptoms. He denies cardiac or respiratory symptoms. He denies any ill contacts. There is no history of inflammatory bowel disorder. He denies eating anything that tasted unusual. He states he has not been on antibiotics in the last month. He has not taken anything for the pain, vomitingor diarrhea. He denies myalgias or arthralgias. He denies joint swelling. He denies rash. Prior similar symptoms: Yes Recent [facility]ness[facility] Medical History Asthma Tobacco abuse Home Medications albuterol 90 mcg/actuation aerosol inhaler 90 mcg inhalation 03/02/22 [History Last Taken Unknown] Allergy/AdvReac Type Severity Reaction Status Date / Time amoxicillin trihydrate Allergy Rash Verified 03/02/22 08:03 [From Augmentin] potassium clavulanate Allergy Rash Verified 03/02/22 08:03 [From Augmentin] Family History Brother Hemophilia Father Diabetes Surgical History History of tonsillectomy Social History Smoking Status: Current every day smoker tobacco type: cigarettes alcohol intake: current alcohol intake frequency: holidays/special occasions only substance use type: marijuana, heroin, opiates and other details: Fentanyl ROS ROS ED Constitutional Constitutional ED: Denies chills, fever(s), subjective, sweats or weight loss ENT ENT ED: Denies ear pain, rhinorrhea or sore throat Cardiovascular Cardiovascular: Denies chest pain or palpitations Respiratory/Chest Respiratory/Chest: Denies cough, dyspnea or dyspnea on exertion Gastrointestinal Gastrointestinal: Reports abdominal pain, diarrhea, nausea and vomiting; Denies constipation or melena Genitourinary Genitourinary ED: Denies dysuria, hematuria or other Musculoskeletal Musculoskeletal: Denies arthralgias, back pain, myalgias or neck pain Integumentary Denies rash Neurologic Neurologic: Denies headache(s), paresthesias or weakness Endocrine Endocrinology: Denies polydipsia, polyphagia or polyuria Hematologic/Lymphatic Hematologic/Lymphatic: Denies easy bleeding or easy bruising Allergic/Immunologic Allergic/Immunologic ED: Denies mouth swelling or tongue swelling EXAM Physical Exam Const Vital Signs: 04/23/22 18:52 Temperature 98 F Temperature Source Temporal Pulse Rate 123 H Respiratory Rate 14 Blood Pressure 142/117 H Blood Pressure Mean 125 Pulse Ox 95 Oxygen Delivery Method Room Air Positive well nourished and well developed Constitutional Narrative: Patient appears uncomfortable. General Appearance ED: well developed; Negative for pallor HEENT Reports TM's clear and dry mucous membranes HEENT Narrative: Nares patent. Uvula midline. normocephalic and atraumatic Tympanic Membrane ED: Yes TM's clear Mouth ED: Yes dry mucous membranes Mouth: dry mucous membranes Eyes PERRL and EOMs intact bilaterally General Eye ED: Negative for pale conjunctiva or scleral icterus Neck no lymphadenopathy, supple and no JVD Resp normal respiratory effort and clear to auscultation bilaterally Cardio regular rhythm, S1 normal heart sound, S2 normal heart sound and no murmurs Rate: tachycardic GI no masses; Negative for non-tender or non-distended GI Narrative: There is tympany throughout. Negative clinical Hoyt sign Auscultation: hypoactive bowel sounds Palpation: tender epigastric and guarding other (Epigastric region); Negative for soft, rigid, hepatomegaly, splenomegaly, hernia, mass, pulsatile mass or rebound tenderness present Back/Spine no CVA tenderness Thoracic Spine / Upper Back: Negative for thoracic spinal tenderness Lumbar Spine / Lower Back: Negative for lumbar spinal tenderness Extremity full ROM General Extremety ED: Negative for edema or tenderness General Extremity: Negative for edema Neuro CN's II-XII intact bilaterally, moves all extremities and no sensory deficits noted Sensorium / Orientation: alert Psych mental status grossly normal and thought process normal Skin no wounds General Skin Exam: Negative for jaundice or pallor MDM MDM MDM Narrative Medical decision making narrative: Patient states he uses marijuana 2-3 times a week. He reports use of opiates 1-2 times a week. He last used 3 days ago. He states he has not had any recent alcohol use. With epigastric pain nausea, vomiting diarrhea suspect this may be viral in etiology. Patient does have significant pain. Will obtain CBC to assess white count and H&H. Liver profile to assess transaminases as well as lipase to evaluate for liver inflammation or pancreatitis. BMP to assess renal function, rule out hypokalemia and assess CO2 anion gap. IV was established. He received 1 L normal saline. He was treated with Bentyl,morphine and Zofran. Since there is no history of blood or mucus in the stool and no history of pseudomembranous enterocolitis he also received Imodium. Review of prior records indicates he was admitted 1 year ago for opiate withdrawal. At that time he was hypertensive and had a rapid heart rate. Urinetox was not obtained since patient admits to multiple drug uses. This will not clarify when he last used. Lab Data Attestation: I reviewed the patient's lab results. Lab results narrative: Sodium is 131 with a chloride of 92. CO2 anion gap is normal. Creatinine is elevated 1.30 however GFR 71. BUN/creatinine ratio is 33:1 which is consistent with dehydration. Urine reveals an elevated specific gravity and ketones. There is no evidence of an. Labs: Laboratory Results - last 24 hr 04/23/22 04/23/22 04/23/22 19:50 20:55 22:00 Sodium 131 L Potassium 3.7 Chloride 92 L Carbon Dioxide 27.0 Anion Gap 12 BUN 43 H Creatinine 1.30 Estim Creat Clear Calc 86.35 Est GFR (MDRD) Af Amer 86 Est GFR (MDRD) Non-Af 71 BUN/Creatinine Ratio 33.1 H Glucose 113 H Calcium 9.7 Total Bilirubin 1.10 H Direct Bilirubin 0.25 AST 16 ALT 22 Alkaline Phosphatase 105 Total Protein 9.7 H Albumin 5.0 Globulin 4.7 H Lipase 122 Urine Color Yellow Urine Clarity Clear Urine pH 6.0 Ur Specific Bristow 1.025 Urine Protein 100 H Urine Glucose (UA) Normal Urine Ketones 5 H Urine Occult Blood Negative Urine Nitrite Negative Urine Bilirubin Negative Urine Urobilinogen Normal Ur Leukocyte Esterase Negative Urine RBC 0 SEEN Urine WBC 0-5 SEEN Ur Squamous Epith Cells 0 SEEN Urine Bacteria 0 SEEN Hyaline Casts 0-5 SEEN Urine Mucus 0 SEEN Ur Drug Screen Comment Rhythm Strip Rhythm Strip: Sinus Tach Rate: 115 Ectopy: None Treatment and Re-Evaluation Narrative: He states he does feel better. Discussed his illicit drug use. Asked if he would like help regarding the use of opiates and marijuana. He states he would. In light of this we will contact hospitalist for admission. Discharge Plan Dx/Rx/DC Orders Clinical Impression: Abdominal pain, vomiting, and diarrhea, Opiate addiction, Acute prerenal azotemia, Ketosis, Cannabis abuse, Sinus tachycardia Disposition Disposition: Acute Care Hospital [facility] What to do if you have Problems For any increased pain, shortness of breath, bleeding, nausea or vomiting, chestpain, or any unexpected problems, contact your Primary Care Provider. Call [facility] ([phone]) or report to the closest Emergency Room. Call 911 if necessary. 04/23/222225 <Electronically signed by Fam Cha MD> Cosigner Signature (if applicable): CC: EVELYN Nicholson ~ Signed [facility] Work Phone: [phone]) 268-723304-07-2022 History of Present illness Narrative* Stacy Nicholson PA-C - 06/28/2021 4:20 PM EDT 25 year old male with c/o Heroin abuse (hcc Was in [facility] for detox, then to rehab Just discharged from rehab [facility] 16 days Silver Mist 30 days Last use 04/18/2021 Maintaining intensive outpatient 180 CBT class AA meetings Current medications: Suboxone 8-2 mg film under tongue twice daily Hydroxyzine 10 mg 1 capsule twice daily as needed Trazodone 100 mg daily at at bedtime. Patient feels anxiety is well controlled. Not currently working. We did have a discussion about the patient's dishonesty and her last 2 visits regarding use. Patient agrees to make a contract to report use and answer questions/in the future. Nodule and low give him 1 more chance and then I would not want to maintain a relationship with his provider. Mild intermittent asthma with acute exacerbation Current medications: Albuterol HFA 2 puffs with spacer every 4 hours as needed Worsening shortness of breath: No. Cough: Yes. Wheezing: Occasional. Smoking: No. Compliant with medications: Yes. Using rescue inhaler 0 times per week: Asking for Inhaler. Herpetic lesions of face No recent issues. Infrequent outbreaks. Would like rx refilled. No work currently HISTORIES FAMILY HISTORY Problem Relation Age of Onset None Mother None Father Hypertension Maternal Grandmother Diabetes Paternal Grandfather other (hemophilia) Brother PAST MEDICAL HISTORY Diagnosis Date PMH - PAST MEDICAL HISTORY OF 12/22 normal color vision PMH - PAST MEDICAL HISTORY OF varicella Routine or ritual circumcision Unspecified asthma(493.90) seasonal PAST SURGICAL HISTORY Procedure Laterality Date CIRCUMCISION,CLAMP, REMOVAL ADENOIDS,PRIMARY,<12 Y/O 2001 REMOVAL OF TONSILS,<12 Y/O TYMPANOSTOMY LOCAL; UNILATERAL Social History Tobacco Use Smoking status: Never Smoker Smokeless tobacco: Never Used Tobacco comment: vapes Substance Use Topics Alcohol use: No Drug use: No ACTIVE PROBLEM LIST Foot and Toe(s), Superficial Foreign Body (Splinter), Without Major Open Wound, Infected Cellulitis and Abscess of Foot, Except Toes Concussion With Loss of Consciousness of 30 Minutes Or Less Mild Intermittent Asthma Allergic Rhinitis Herpetic Lesions of Face Generalized Anxiety Disorder Heroin Abuse ([facility]) Current Outpatient Medications Medication Sig Dispense Refill albuterol HFA (PROVENTIL HFA, VENTOLIN HFA) 90 mcg/actuation inhaler Inhale 2 puffs with spacer as needed 18 g 1 venlafaxine ER (EFFEXOR XR) 150 mg 24 hr capsule Take 1 capsule by mouth once daily. (Patient not taking: Reported on 09/20/2020 ) 90 capsule 1 venlafaxine ER (EFFEXOR XR) 75 mg 24 hr capsule Take 1 capsule by mouth once daily. (Patient not taking: Reported on 09/20/2020 ) 30 capsule 2 omeprazole (PRILOSEC) 20 mg capsule Take 1 capsule by mouth daily before breakfast. 1/2 hr before meal. (Patient not taking: Reported on 09/20/2020 ) 30 capsule 2 No current facility-administered medications for this visit. COVID-19 VACCINE(1) Never done MENINGOCOCCAL B: Consider based on risk(1 of 2 - Risk Bexsero 2-dose series) Never done HPV VACCINE(1 - Male 2-dose series) Never done SPIROMETRY Never done HEPATITIS C SCREENING Never done HIV SCREENING Never done ONE PNEUMOVAX PRIOR TO AGE 65 Never done DTAP,TDAP,TD(4 - Td or Tdap) due on 08/26/2017 DEPRESSION SCREENING due on 01/06/2019 ANNUAL PCP TEAM CHRONIC DISEASE VISIT due on 06/27/2021 EXAM: BP 118/60 (BP Site: Left Arm, BP Position: Sitting, BP Cuff Size: Regular Adult) Pulse 86 Temp 36.7 C (98 F) (Tympanic) Resp 18 Wt 80.3 kg (177 lb) BMI 22.73 kg/m Pleasant well-appearing adult young man in no acute distress. Alert and oriented all spheres. Normal affect and cognition. Speech normal. No deficits to learning or comprehension. Skin warm, dry, pink to lips and nailbeds. Normal turgor. Respirations regular and unlabored. HEENT: NCAT. No scleral icterus or conjunctival injection. TM's clear. Nose and oropharynx free from injection or lesion. Oral membranes moist and pink. No cervical lymph nodes. Thyroid non-tender, no masses, or enlargement. Carotids pulses 2+/4+ without bruits. Chest is normal shape. Lungs are clear to all valadez with good air exchange through out. HRRR without murmur or gallop. No lifts, heaves, or rubs. Extrem: no clubbing or cyanosis. Edema: none. Extremities are warm and pink with prompt capillary refill. No track duke identified. ASSESSMENT/PLAN: 1. Adjustment disorder with mixed anxiety and depressed mood - ICD9: 309.28, ICD10: F43.23 (primarydiagnosis) Stable on current regimen, continue meds. Refilled. 2. Generalized anxiety disorder - ICD9: 300.02, ICD10: F41.1 Stable 3. Heroin abuse (HCC) - ICD9: 305.50, ICD10: F11.10 Currently in outpatient treatment, attending NA groups. As above discussed patient dishonesty and broken trust, will continue to provide care and life stressors broken third time. 4. Mild intermittent asthma with acute exacerbation - ICD9: 493.92, ICD10: J45.21 Mild intermittent Asthma stable - Continue current meds - Avoidance of triggers recommended 5. Herpetic lesions of face - ICD9: 054.9, ICD10: B00.9 No current outbreaks, prophylactic Rx. - ACYCLOVIR 800 MG TABLET Follow-up in 6 months. Stacy Nicholson PA-C documented [facility] Hospital[facility]char [facility] Author Dr. Hernandez [facility] April 25, 2022 12:13pm Note Date/Time April 25, 2022 1 2:12pm [facility] Medical Records Department [address] [place] [id number] Instructions for Home/Discharge Instructions 04/25/22 1211 MR#: [id number] Acct: [id number] Name: BRYAN LUNDBERG Rep #:[id number] : 1995 26 From: Yudelka Hernandez MD PCP: EVELYN Phan Status:ADM I N Discharge Instructions Diet Discharge Diet: No restrictions Activity Discharge Activity: Return to Normal Activity Follow Up Care Test Results: Test results from this visit will be discussed in further detail at your follow- up appointment, if applicable. Discharge Plan Admission Admit Date/Time: 04/23/22 22:22 Primary Reason for Your Visit: Detox Attending Provider: Yudelka Hernandez Primary Care Provider: Stacy Nicholson Consulting Providers: Tory Chirinos Instructions Patient Instructions: ED Opiate Abuse, ED Opioid Withdrawal Additional Instructions / Restrictions: Follow-up 180 on discharge Discharge Orders/Prescriptions Prescriptions: Continued albuterol 90 mcg/actuation Aerosol 90 mcg INHALATION Referrals / Follow Up: Stacy Nicholson PA [Primary Care Provider] - Within 1 Week Disposition Disposition (needs filled in before D/C Order can be placed): Home, Self Care 04/25/22 1213<Electronically signed by Yudelka Hernandez MD>Yudelka Hernandez MD CC: EVELYN Nicholson; Dr. Tory Chirinos MD ~ Signed [facility] Work Phone: Evaluation note* Diagnosis Adjustment disorder with mixed anxiety and depressed mood- Primary Generalized anxiety disorder Heroin abuse (HCC) Opioid abuse, unspecified Mild intermittent asthma with acute exacerbation Unspecified asthma, with exacerbation Herpetic lesions of face Herpes simplex without mention of complication documented in this encounter [facility] HospitalEvaluation noteNo assessment information availableWAvita Health [facility] Work Phone: Evaluation note* Diagnosis Onset Date Resolution Status Abdominal pain, vomiting, and diarrhea acute Acute opioid withdrawal acut e Acute prerenal azotemia acut e Cannabis abuse acute Ketosis acute Opiate addiction acute Polysubstance (including opi oids) dependence with physiol dependence acute Sinus tachycardia acute [facility] Work Phone: Evaluation note* Diagnosis Onset Date Resolution Status Desire for detoxification ac tanana Mild dehydration acute Opiate addiction acute Tobacco abuse acute [facility] Work Phone: Evaluation note* Diagnosis Heroin abuse (HCC)- Primary Opioid abuse, unspecified Generalized anxiety disorder documented in this encounter [facility]* Diagnosis Pain, dental- Primary Unspecified disorder of the teeth and supporting structures documented in this encounter [facility] HospitalHistory and physical note [facility] April 23, 2022 10:52pm Note Date/Time April 23, 2022 1 0:26pm [facility] Medical Records Department [address] [place] [id number] H&P Exam - Hospitalist 04/23/22 2226 MR#: [id number] Acct: [id number] Name: BRYAN LUNDBERG Rep #:[id number] : 1995 26 From: Tory Chirinos MD PCP: EVELYN Phan Status:ADM I N Location: [place] [address] HPI - General General Date of Admission: 04/23/22 Date of Service: 04/23/22 Chief Complaint: Epigastric pain, request for tox from heroin/fentanyl HPI Narrative BRYAN LUNDBERG, is a 26 M who presents with the above. Patient has past medical history of polysubstance use -daily heroin/fentanyl as well as marijuana. He last used fentanyl/heroin about 2 days ago, but about $20 worth. He comes in complains of abdominal pain especially in the epigastric region. He was last indetox a year ago in March 2021. He denies smoking cigarettes. Denies any fever or chills no nausea vomiting. At time of being seen, he denied any new complaints. He did receive Imodium, Bentyl, morphine, and Zofran in the emergency room as well as IV fluids In the ED, his blood pressure was 142/117, heart rate 120, respiratory rate was 14, temperature 98F, oxygen sat was 95% on room air. Admitting blood work showed sodium 131, potassium 3.7, chloride 93, bicarbonate 27, BUN 43, creatinine 1.30, previous creatinine 0.77. UA was unremarkable. Urine tox was positive for amphetamines, ecstasy and cannabinoids. [facility] Medical History Asthma Tobacco abuse Home Medications albuterol 90 mcg/actuation aerosol inhaler 90 mcg inhalation 03/02/22 [History Last Taken Unknown] Allergy/AdvReac Type Severity Reaction Status Date / Time amoxicillin trihydrate Allergy Rash Verified 03/02/22 08:03 [From Augmentin] potassium clavulanate Allergy Rash Verified 03/02/22 08:03 [From Augmentin] Family History Brother Hemophilia Father Diabetes Surgical History History of tonsillectomy Social History (Updated 04/23/22 @ 22:[address] Tory Chirinos MD) alcohol intake: current alcohol intake frequency: holidays/special occasions only substance use type: marijuana, heroin, opiates and other details: Fentanyl ROS ROS Narrative Constitutional:Denies: Anorexia, Chills, Fever, Night Sweats, Weight Change Eyes: Denies: Blurred vision, Cataracts, Conjunctivae Inflammation, Pain, Redness, Vision Change HEENT: Denies: Difficulty Hearing, Difficulty Swallowing, Head Aches, Hearing Changes, Sinus Congestion, Sinus Drainage Cardiovascular: Denies: Chest Pain, Orthopnea, Palpitations Respiratory: Denies: Cough, Shortness of breath at rest, Sputum production Gastrointestinal: See HPI per Genitourinary: Denies: Dysuria Musculoskeletal: Denies: Joint Pain, Joint stiffness, Joint swelling, Joint Tenderness Skin: Denies: Rash, Wounds Neurological: Denies: Numbness, Tingling, Focal weakness Vital Signs Vital Signs Vital Signs: 04/23/22 18:52 Temperature 98 F Temperature Source Temporal Pulse Rate 123 H Respiratory Rate 14 Blood Pressure 142/117 H Blood Pressure Mean 125 Pulse Ox 95 Oxygen Delivery Method Room Air Weight Weight: 70.9 kg Body Mass Index (BMI) 20.6 Physical Exam Narrative Physical exam: General: Alert, Oriented x3, Cooperative, appears restless HEENT: Atraumatic Oral: Moist Mucosa Neck: Supple Lungs: Clear to auscultation Cardiovascular: HS I+II, regular, no murmurs Abdomen: Bowel Sounds Present, Soft, Non Tender Extremities: No edema Skin: No rashes, No breakdown Neurological: Grossly intact Psych/Mental Status: Appropriate Results Lab / Micro Data Result Diagrams: 04/23/22 19:50 Labs: Laboratory Results - last 24 hr 04/23/22 19:50: Sodium 131 L, Potassium 3.7, Chloride 92 L, Carbon Dioxide 27.0,Anion Gap 12, BUN 43 H, Creatinine 1.30, Estim Creat Clear Calc 86.35, Est GFR (MDRD) Af Amer 86, Est GFR (MDRD) Non-Af 71, BUN/Creatinine Ratio 33.1 H, Glucose 113 H, Calcium 9.7, Total Bilirubin 1.10 H, Direct Bilirubin 0.25, AST 16, ALT 22, Alkaline Phosphatase 105, Total Protein 9.7 H, Albumin 5.0, Globulin4.7 H, Lipase 122 04/23/22 20:55: Urine Color Yellow, Urine Clarity Clear, Urine pH 6.0, Ur Specific Bristow 1.025, Urine Protein 100 H, Urine Glucose (UA) Normal, Urine Ketones 5 H, Urine Occult Blood Negative, Urine Nitrite Negative, Urine Bilirubin Negative, Urine Urobilinogen Normal, Ur Leukocyte Esterase Negative, Urine RBC 0 SEEN, Urine WBC 0-5 SEEN, Ur Squamous Epith Cells 0 SEEN, Urine Bacteria 0 SEEN, Hyaline Casts 0-5 SEEN, Urine Mucus 0 SEEN 04/23/22 22:00: Ur Drug Screen Comment Rhythm Strip Rhythm Strip: Sinus Tach Rate: 115 Ectopy: None Assessment & Plan Assessment/Plan (1) Polysubstance (including opioids) dependence with physiol dependence: (2) Abdominal pain, vomiting, and diarrhea: (3) Acute prerenal azotemia: (4) Acute opioid withdrawal: PLAN: Plan 1. Acute opioid withdrawal, patient with the use of heroin/fentanyl Last use was 2 days prior to admission Admit to [facility], start on Subutex withdrawal protocol 2. Polysubstance use, advised to quit 3. Acute kidney injury, patient with admitting creatinine 1.3, previous creatinine 0.77 Patient received IV fluids in the ED; will encourage liberal oral intake Will trend labs in a.m. 4. DVT PPx- Low risk; early ambulation recommended Charges/Coding Visit Charges Inpatient E&M: 20864 Init Hosp L2 04/23/22 0057 <Electronically signed by Tory Chirinos MD> Cosigner Signature (if applicable): CC: EVELYN Nicholson; Dr. Tory Chirinos MD~ Signed [facility] Work Phone: Chief Complaint and Reason for Visit Chief Complaint ABD PAIN, N/V Chief Complaint ABD PAIN, N/V FLANK PAIN Chief Complaint ABD PAIN, N/V FLANK PAIN ACUTE OPIATE WITHDRAWAL ACUTE OPIATE WITHDRAWAL Reason for Visit Abdominal pain, vomi ting, and diarrhea Acute opioid withdrawal Acute prerenal azotemia Cannabis abuse Ketosis Opiate addiction Polysubstance (including opioids) dependence with physiol dependence Sinus tachycardia Chief Complaint ABD PAIN, N/V FLANK PAIN ACUTE OPIATE WITHDRAWAL ACUTE OPIATE WITHDRAWAL ACUTE OPIATE WITHDRAWAL Reason for Visit Abdominal pain, vomi ting, and diarrhea Acute opioid withdrawal Acute prerenal azotemia Cannabis abuse Ketosis Opiate addiction Polysubstance (including opioids) dependence with physiol dependence Sinus tachycardia Chief Complaint ABD PAIN, N/V FLANK PAIN ACUTE OPIATE WITHDRAWAL ACUTE OPIATE WITHDRAWAL ACUTE OPIATE WITHDRAWAL ACUTE OPIATE WITHDRAWAL overdose Reason for Visit Abdominal pain, vomi ting, and diarrhea Acute opioid withdrawal Acute prerenal azotemia Cannabis abuse Ketosis Opiate addiction Polysubstance (including opioids) dependence with physiol dependence Sinus tachycardia Chief Complaint OPIATE DETOX Reason for Visit Desire for detoxific ation Mild dehydration Opiate addiction Tobacco abuse Chief Complaint OPIATE DETOX OPIATE DETOX OPIATE DETOX Reason for Visit Desire for detoxific ation Mild dehydration Opiate addiction Tobacco abuse Family History No Family History Records Found Relationship Condition Age at Onset Recorded Date/T nicki brother Hemophilia Unknown father Diabetes mellitus Unknown Advance Directives No Advanced Directives Records Found Advance Directive Response Recorded Date/ Time Living Will No February 19 8:37pm Power of Market Manager No February 19, 2022 8:37pm Advance Directive Response Recorded Date/ Time Living Will No March 02 8:03am Power of Market Manager No March 02, 2022 8:03am Advance Directive Response Recorded Date/ Time Living Will No April 23 7:44pm Power of Market Manager No April 23, 2022 7:44pm Advance Directive Response Recorded Date/ Time Living Will No April 23 11:52pm Power of Market Manager No April 23, 2022 11:52pm Advance Directive Response Recorded Date/ Time Living Will No May 01 10:24pm Power of Market Manager No May 01, 2022 10:24pm Advance Directive Response Recorded Date/ Time Living Will No September 14, 2022 11:39pm Power of Market Manager No September 14 11:39pm Summary Purpose Additional Source Comments Source Comments (unrecognize d section and content) In the event this informatio n is protected by the Federal Confidentiality of Alcohol and Drug Abuse Patient Records regulations: The Federal rules restrict any use of the information to criminally investigate or prosecute any alcohol or drug abuse patient.[facility] the event this information is protected by the Federal Confidentiality of Alcohol and Drug Abuse Patient Records regulations: The Federal rules restrict any use of the information to criminally investigate or prosecute any alcohol or drug abuse patient.[facility] the event this information is protected by the Federal Confidentiality of Alcohol and Drug Abuse Patient Records regulations: The Federal rules restrict any use of the information to criminally investigate or prosecute any alcohol or drug abuse patient.[facility] Reason for Visit (unrecogniz ed section and content) Reason Comments Follow Up patient is here for medication follow up Reason Comments Anxiety Reason Comments Dental Problem Right side, swelling pain, abscess tooth x 3 days Care Teams (unrecognized sec tion and content) Reconciler Relationship Specialty Start Date End Date Stacy Nicholson PA-C [address] [place] [address] PCP - General Family Practice 09/23/18 Team Status: Active Member Role Status Dates EVELYN Grullon Family Provider Active EVELYN Grullon Primary Care Provider Active Team Status: Active Member Role Status Dates EVELYN Grullon Primary Care Provider Active Dr. Fam Cha MD Emergency Provider Active Dr. Tory Chirinos MD Admit Provider, Atte nding Provider, Other Provider Active Team Status: Inactive Member Role Status Dates EVELYN Grullon Primary Care Provider Active Dr. Chrissy Kramer MD Attending Provider, Emergency Provider Active Team Status: Inactive Member Role Status Dates EVELYN Grullon Primary Care Provider Active Dr. Boston Menendez MD Attending Provider, Emergency Provider Active Team Status: Active Member Role Status Dates EVLEYN Grullon Primary Care Provider Active Dr. Fam Cha MD Emergency Provider Active Dr. Tory Chirinos MD Admit Provider, Attending Provider Active Team Status: Active Member Role Status Dates EVELYN Grullon Primary Care Provider Active Dr. Fam hCa MD Emergency Provider Active Dr. Tory Chirinos MD Admit Provider, Other Provider Act zhane Dr. Yudelka Hernandez MD Attending Provider, Other Provid er Active Team Status: Inactive Member Role Status Dates EVELYN Grullon Primary Care Provider Active Dr. Fam Cha MD Emergency Provider Active Dr. Tory Chirinos MD Admit Provider, Other Provider Act zhane Dr. Yudelka Hernandez MD Attending Provider Active Team Status: Inactive Member Role Status Dates EVELYN Grullon Primary Care Provider Active Dr. Akash Saucedo DO Emergency Provider Active Team Status: Active Member Role Status Dates EVELYN Grullon Primary Care Provider Active Dr. Boston Menendez MD Emergency Provider Active Dr. Xander Olivera MD Admit Provider, Attending Provider, Referring Provider Active Team Status: Active Member Role Status Dates EVELYN Grullon Primary Care Provider Active Dr. Boston Menendez MD Emergency Provider Active Dr. Xander Olivera MD Admit Provider, Referring Provider, Other Provider Active Dr. Arnol Somers DO Attending Provider, Other Pro vider Active Team Status: Inactive Member Role Status Dates EVELYN Grullon Primary Care Provider Active Dr. Boston Menendez MD Emergency Provider Active Dr. Xander Olivera MD Admit Provider, Referring Provider, Other Provider Active Dr. Arnol Somers DO Attending Provider Active Reconciler Relationship Specialty Start Date End Date Stacy Nicholson PA-C [address] [place] [address] PCP - General Family Medicine 09/23/18 Reconciler Relationship Specialty Start Date End Date Stacy Nicholson PA-C [address] [place] [address] PCP - General Family Medicine 09/23/18 Goals (unrecognized section and content) Goals may be documented in a n alternate sectionGoals may be documented in an alternate sectionGoals may be documented in an alternate sectionGoals may be documented in an alternate section (unrecognized sect ion and content) No Status Records FoundNo Status Records Found INFORMATION SOURCE (unrecogn ized section and content) DATE CREATED AUTHOR 12/30/2022 [facility] DATE CREATED AUTHOR AUTHOR'S ORGANIZ ATION 05/04/2023 [facility] FOR RECORDS PERTAINING TO PATIENTS WHO ARE OR HAVE BEEN ENROLLED IN A CHEMICAL DEPENDENCY/SUBSTANCEABUSE PROGRAM, SOME INFORMATION MAY BE OMITTED. This clinical summary was aggregated from multiple sources. Caution should be exercised in using it in the provision of clinical care. This summary normalizes information from multiple sources, and as a consequence, information in this document may materially change the coding, format and clinical context of patient data. In addition, data may be omitted in some cases. CLINICAL DECISIONS SHOULD BE BASED ON THE PRIMARY CLINICAL RECORDS. [facility] [employer] [facility]. provides no warranty or guarantee of the accuracy or completeness of information in this document.
--- NOTE | 2025-03-02 19:25 | PCM.HP.STD ---
HPI - General General Date of Admission: 03/02/25 Date of Service: 03/02/25 Chief Complaint: Opiate withdrawal HPI Narrative The patient is a 29 y/o M w/ PMHx: Asthma, Tobacco use, Seizure history, Polysubstance abuse (Cannabis, Heroin, Opiate abuse (fentanyl)) who presents to the [facility] ED on 03/02/2025 w/ noted acute opiate withdrawal onset starting later in the day on current day of presentation following last dose earlier in the day specifically using fentanyl with abdominal discomfort, generalized mild body aches and pains, rhinorrhea with associated mild coughing, fatigue and restlessness as well as mild diaphoresis. Patient does state he is interested in clean status. He notes he has usually been using about a half a gram of fentanyl crushed distorted daily. Workup in the ED included T96.8, heart rate 68, BP 100/67, respiratory rate 15, 97% on room air, pending CBC, BMP, UDS, ethyl alcohol upon request evaluation of patient. [facility] Medical History Seizures Tobacco abuse Polysubstance (including opioids) dependence with physiol dependence Cannabis abuse Asthma Tobacco abuse Home Medications ?Medication ?Instructions ?Recorded ?Last Taken ?Type NK 12/27/22 Unknown History Allergy/AdvReac Type Severity Reaction Status Date / Time amoxicillin trihydrate (From Allergy Rash Verified 03/02/25 18:33 Augmentin) potassium clavulanate (From Allergy Rash Verified 03/02/25 18:33 Augmentin) Family History (Updated 03/02/25 @ 20:[address] Blanca Stacy MD) Brother Hemophilia Father Diabetes Mother No problems noted. Surgical History History of tonsillectomy Social History (Updated 03/02/25 @ 20:[address] Blanca Stacy MD) household members: none Smoking Status: Current every day smoker tobacco type: cigarettes Electronic Cigarette Use: with nicotine alcohol intake: current alcohol intake frequency: holidays/special occasions only substance use type: marijuana, heroin, opiates and other details: Fentanyl (1/2 gm daily snorted) ROS ROS Narrative Admission Review of Systems: CONSTITUTIONAL: No weight loss, fever, chills, + weakness or fatigue. HEENT: + Rhinorrhea with resulting cough. Eyes: No visual loss, blurred vision, double vision or yellow sclerae. Ears, Nose, Throat: No hearing loss, sneezing, sore throat. SKIN: No rash or itching, lesions, wounds. CARDIOVASCULAR: No chest pain, chest pressure or chest discomfort, palpitations, edema, orthopnea, syncopal events. RESPIRATORY: No shortness of breath, cough or sputum, wheezing, hemoptysis. GASTROINTESTINAL: + anorexia, mild abdominal discomfort. No current complaint of nausea, vomiting diarrhea, melena, BRBPR. GENITOURINARY: No dysuria, frequency, urgency or retention. NEUROLOGICAL: No headache, dizziness, syncope, paralysis, ataxia, numbness or tingling in the extremities, focal weakness, change in bowel or bladder control, seizure. MUSCULOSKELETAL: + muscle, back pain, joint pain or stiffness. HEMATOLOGIC: No reported history of anemia, bleeding or bruising. LYMPHATICS: No enlarged nodes. No history of splenectomy. PSYCHIATRIC: No history of depression or anxiety. ENDOCRINOLOGIC: + reports of sweating, cold or heat intolerance. No polyuria or polydipsia. ALLERGIES: + History of asthma. Vital Signs Vital Signs Vital Signs: 03/02/25 18:31 Temperature 96.8 F L Temperature Source Temporal Pulse Rate 68 Respiratory Rate 15 Blood Pressure 100/67 Blood Pressure Mean 78 Pulse Ox 97 Oxygen Delivery Method Room Air Weight Weight: 168 lb 6.4 oz Body Mass Index (BMI) 21.6 Physical Exam Narrative Physical Examination: General: Awake, alert, oriented x 3 and cooperative, seated upright in the ED bed, fatigued, mildly diaphoretic, occasional coughing with evident rhinorrhea. Skin: Normal color, normal turgor, no icterus, no cyanosis except occasional stage ecchymoses, abrasions. HEENT: AT/NC, EOMI, PERRLA, mildly dry MM, evident rhinorrhea, no carotid bruits or JVD noted. Lungs: Mildly diminished, greater bases, proper effort, no appreciated rales, ronchi or wheezing. Heart: Regular rate and rhythm; no gallop, rub audible. Abdomen: Soft, mild generalized discomfort with palpation but no rebound or guarding, ND, hyperactive BS, no markedly appreciated HSM. Extremities: No cyanosis, clubbing, or edema. Neurological: Patient awake, alert, oriented as noted, cognitive function intact; pupils equally reactive to light and accommodation, cranial nerves grossly normal, moving all 4 extremities, no focal deficits, strength mildly to moderately globally decreased secondary to acute withdrawal, mildly restless, fatigued, yawning during evaluation. Psychiatric: Affect appears flat, fatigued, no acute evidence of depressive or anxiety feelings with no reported psychiatric history. Results Lab / Micro Data 03/02/25 19:03 03/02/25 19:03 Assessment & Plan Assessment/Plan (1) Opiate withdrawal: PLAN: Plan The patient is a 29 y/o M w/ PMHx: Asthma, Tobacco use, Seizure history, Polysubstance abuse (Cannabis, Heroin, Opiate abuse (fentanyl)) who presents to the [facility] ED on 03/02/2025 w/ noted acute opiate withdrawal onset. #1. Acute Opiate Withdrawal: Will admit to [facility], routine labs including CBC, BMP, urine for drug screen obtained in the ED and pending upon request evaluation of patient, will add request for liver profile additionally and as noted below #2, will initiate and continue on protocol with tapering course of Subutex, as needed tylenol, ibuprofen, bowel regimen, gabapentin, Bentyl, Vistaril, methocarbamol, clonidine, PRN nightly trazodone for insomnia, IV fluids, IV antiemetics. Case management/social work consulted for assistance with next transition of care. #2. Polysubstance Abuse: Given significant drug abuse history discussed with patient and will obtain HIV, hepatitis, syphilis given concerns and substance use history. #3. Tobacco Abuse: Encouraged cessation, inpatient consultation per RT, NR if desired. #4. Chronic asthma: Per current list patient is not on a medication, encouraged tobacco and cannabis cessation, will have as needed albuterol. #5. Chart reported history of seizure disorder: Unclear situation, potentially drug-related, not on any antiepileptic medication, encourage follow-up outpatient as previously arranged. #6. DVT prophylaxis: Low risk for type of presentation, encourage ambulation. Charges/Coding Visit Charges Inpatient E&M: 74916 Init Hosp L2
[2025-03-02 19:41] VITALS: BP 100/67; PULSE 68; RESP 15; RESP 18; TEMP 36; O2SAT 97; O2SAT 99
[2025-03-02 19:44] LABS: Hematocrit 37.8 % (40-54); Hemoglobin 12.8 g/dL (13.0-16.5); Immature Granulocytes Count 0.030 X10^3/uL (0.0-0.0); Mean Corp Hgb Conc 33.9 g/dL (32-36); Mean Corpuscular Volume 83.1 fL (80-94); Mean Platelet Vol. 9.4 fl (6.2-12.0); NRBC Flagged by Analyzer 0 % (0-5); Platelet Count 299 K/mm3 (150-450); RBC Distribution Width CV 13.2 % (11.6-14.6); RBC Distribution Width SD 40.3 fl (35.1-43.9); Red Blood Count 4.55 M/mm3 (4.6-6.2); White Blood Count 11.5 K/mm3 (4.4-11.0)
--- OUTSIDE RECORDS SUMMARY | 2025-03-02 19:52 | XMS RPT_ITS | CCD ---
Author Organization [facility] Care Team Providers Care Warble Saw Operator Name Role Phone Stacy Nicholson PA-C Primary Care Provider [phone] EVELYN Ugalde Primary Care Provider [phone] Dr. Fam Cha Emergency Provider [phone] Dr. Tory Chirinos Admit Provider Dr. Tory Chirinos Attending Provider Dr. Tory Chirinos Other Provider Dr. Yudelka Hernandez Attending Provider Dr. Yudelka Hernandez Other Provider EVELYN Ugalde Primary Care Provider [phone] Dr. [place] Menendez Emergency Provider Dr. Xander [...] Olivera Referring Unavailable Xander Olivera Consulting Unavailable Stacy Nicholson Primary Care Unavailable Arnol Somers Attending Unavailable Stacy Nicholson Primary Care Unavailable [place], [place] Admitting Unavailable [place], [place] Consulting Unavailable Hernandez, Yudelka Attending Unavailable Hernandez, Yudelka Consulting Unavailable [place] Menendez Referring Unavailable Joselin, Xander Admitting Unavailable Xander Olivera Attending Unavailable Xander Olivera Consulting Unavailable Stacy Nicholson Primary Care Unavailable [place], [place] Attending Unavailable Agbibg, Xander Referring Unavailable Arnol Somers Attending Unavailable Arnol Somers Consulting Unavailable Stacy Nicholson Primary Care Unavailable Regino Ledesma Attending Unavailable Regino Ledesma Consulting Unavailable Regino Ledesma Admitting Unavailable Yudelka Hernandez Attending Unavailable Hernandez, Yudelka Consulting Unavailable [place], [place] Consulting Unavailable [place], [place] Admitting Unavailable Yudelka Hernandez Attending Unavailable Stacy Nicholson Primary Care Unavailable uYdelka Hernandez Attending Unavailable Stacy Nicholson Primary Care [...] Translations: [AMOXICILLIN-POT CLAVULANATE] Drug Allergy 6 Rash [facility] Work Phone: (2 sources) environmental [Other] Propensity to adverse reactions 8 Cough [facility] Work Phone: (8 sources) Amoxicillin; Translations: [amoxicillin trihydrate] Drug Allergy 2 [facility] (8 sources) potassium clavulanate; Translations: [potassium clavulanate] Allergy to substance 2 [facility] (1 source) OTHER; Translations: [OTHER] Propensity to adverse reactions (disorder) 8 [facility] Repository Medications Current Medications Medication Drug Class(es) [...] three times a day for 7 days. [place] (Nk) (1 source) Start: 02-20-20 [place] (Nk) Active February 19, 2022 12:00am Completed/Discontinued [...] on above: Take 1 capsule by mo [facility] once daily. Problems Active Problems Problem [...] CNOV Office Visit (UCWSTR ) BRYAN LUNDBERG ([id number]) 1995 M Date Time Provider Department 05/02/23 6:00 PM MINOR GHOSH [facility] During your visit today, we recorded the following information about you: Temperature Pulse Respiration Blood pressure 97.7 degrees 121/minute 20/minute 134/96 Weight 79.8 kg Minor Ghosh APRN.[employer] 05/02/2023 6:22 PM Signed This note was [...] history is provided by the patient. No macadam raker was used. Dental Problem This is a [...] Normal rate (more content not included)... Normal [facility] CBC W/Diff, Automatedon 10-0 -2022 Absolute Neut Normal 2.0-7.7 [facility] Comment on above: Result Comment: Canc elled via OM: Order cancelled - Patient discharged Performed By: #### L 501.3620, L100.0100, L500.2500 #### [facility] [address] [place], [address] HCT Normal 40-54 [facility] Comment on above: Result Comment: Canc elled via OM: Order cancelled - Patient discharged Performed By: #### L 501.3620, L100.0100, L500.2500 #### [facility] [address] [place], [address] HGB Normal 13.0-16.5 [facility] Comment on above: Result Comment: Canc elled via OM: Order cancelled - Patient discharged Performed By: #### L 501.3620, L100.0100, L500.2500 #### [facility] [address] [place], [address] MCH Normal 27.0-32.0 [facility] Comment on above: Result Comment: Canc elled via OM: Order cancelled - Patient discharged Performed By: #### L 501.3620, L100.0100, L500.2500 #### [facility] [address] [place], [address] MCHC Normal 32-36 [facility] Comment on above: Result Comment: Canc elled via OM: Order cancelled - Patient discharged Performed By: #### L 501.3620, L100.0100, L500.2500 #### [facility] [address] [place], [address] MCV Normal 80-94 [facility] Comment on above: Result Comment: Canc elled via OM: Order cancelled - Patient discharged Performed By: #### L 501.3620, L100.0100, L500.2500 #### [facility] [address] [place], [address] NEUT% Normal 47-70 [facility] Comment on above: Result Comment: Canc elled via OM: Order cancelled - Patient discharged Performed By: #### L 501.3620, L100.0100, L500.2500 #### [facility] [address] [place], [address] PLT Normal 150-450 [facility] Comment on above: Result Comment: Canc elled via OM: Order cancelled - Patient discharged Performed By: #### L 501.3620, L100.0100, L500.2500 #### [facility] [address] [place], [address] RBC Normal 4.6-6.2 [facility] Comment on above: Result Comment: Canc elled via OM: Order cancelled - Patient discharged Performed By: #### L 501.3620, L100.0100, L500.2500 #### [facility] [address] [place], [address] RDW CV Normal 11.6-14.6 [facility] Comment on above: Result Comment: Canc elled via OM: Order cancelled - Patient discharged Performed By: #### L 501.3620, L100.0100, L500.2500 #### [facility] [address] [place], [address] RDW SD Normal 35.1-43.9 [facility] Comment on above: Result Comment: Canc elled via OM: Order cancelled - Patient discharged Performed By: #### L 501.3620, L100.0100, L500.2500 #### [facility] [address] [place], [address] WBC Normal 4.4-11.0 [facility] Comment on above: Result Comment: Canc elled via OM: Order cancelled - Patient discharged Performed By: #### L 501.3620, L100.0100, L500.2500 #### [facility] [address] [place], [address] Comprehensive Metabolic Prof ilon 12-29-2022 ALB Normal 3.2-5.0 [facility] Comment on above: Result Comment: Canc elled via OM: Order cancelled - Patient discharged Performed By: #### L 501.3620, L100.0100, L500.2500 #### [facility] [address] [place], [address] ALK P Normal 45-117 [facility] Comment on above: Result Comment: Canc elled via OM: Order cancelled - Patient discharged Performed By: #### L 501.3620, L100.0100, L500.2500 #### [facility] [address] [place], [address] ALT Normal 16-61 [facility] Comment on above: Result Comment: Canc elled via OM: Order cancelled - Patient discharged Performed By: #### L 501.3620, L100.0100, L500.2500 #### [facility] [address] [place], [address] AST Normal 15-37 [facility] Comment on above: Result Comment: Canc elled via OM: Order cancelled - Patient discharged Performed By: #### L 501.3620, L100.0100, L500.2500 #### [facility] [address] [place], [address] BUN Normal 7-18 [facility] Comment on above: Result Comment: Canc elled via OM: Order cancelled - Patient discharged Performed By: #### L 501.3620, L100.0100, L500.2500 #### [facility] [address] [place], [address] BUN/CRE Normal 10-20 [facility] Comment on above: Result Comment: Canc elled via OM: Order cancelled - Patient discharged Performed By: #### L 501.3620, L100.0100, L500.2500 #### [facility] [address] [place], [address] CA,Total Normal 8.5-10.1 [facility] Comment on above: Result Comment: Canc elled via OM: Order cancelled - Patient discharged Performed By: #### L 501.3620, L100.0100, L500.2500 #### [facility] [address] [place], [address] CL Normal 98-107 [facility] Comment on above: Result Comment: Canc elled via OM: Order cancelled - Patient discharged Performed By: #### L 501.3620, L100.0100, L500.2500 #### [facility] [address] [place], [address] CO2 Normal 21.0-32.0 [facility] Comment on above: Result Comment: Canc elled via OM: Order cancelled - Patient discharged Performed By: #### L 501.3620, L100.0100, L500.2500 #### [facility] [address] [place], [address] CREAT,SERUM Normal 0.70-1.30 [facility] Comment on above: Result Comment: Canc elled via OM: Order cancelled - Patient discharged Performed By: #### L 501.3620, L100.0100, L500.2500 #### [facility] [address] [place], [address] EST GFR Normal >60 [facility] Comment on above: Result Comment: Canc elled via OM: Order cancelled - Patient discharged Performed By: #### L 501.3620, L100.0100, L500.2500 #### [facility] [address] [place], [address] EST GFR - AA Normal >60 [facility] Comment on above: Result Comment: Canc elled via OM: Order cancelled - Patient discharged Performed By: #### L 501.3620, L100.0100, L500.2500 #### [facility] [address] [place], [address] GAP Normal 5-15 [facility] Comment on above: Result Comment: Canc elled via OM: Order cancelled - Patient discharged Performed By: #### L 501.3620, L100.0100, L500.2500 #### [facility] [address] [place], [address] GLU Normal 74-106 [facility] Comment on above: Result Comment: Canc elled via OM: Order cancelled - Patient discharged Performed By: #### L 501.3620, L100.0100, L500.2500 #### [facility] [address] [place], [address] Potassium Normal 3.5-5.1 [facility] Comment on above: Result Comment: Canc elled via OM: Order cancelled - Patient discharged Performed By: #### L 501.3620, L100.0100, L500.2500 #### [facility] [address] [place], [address] T BILI Normal 0.20-1.00 [facility] Comment on above: Result Comment: Canc elled via OM: Order cancelled - Patient discharged Performed By: #### L 501.3620, L100.0100, L500.2500 #### [facility] [address] [place], [address] T PROT Normal 6.4-8.2 [facility] Comment on above: Result Comment: Canc elled via OM: Order cancelled - Patient discharged Performed By: #### L 501.3620, L100.0100, L500.2500 #### [facility] [address] [place], [address] Comprehensive Metabolic Profil Normal 136-145 [facility] Comment on above: Result Comment: Canc elled via OM: Order cancelled - Patient discharged Performed By: #### L 501.3620, L100.0100, L500.2500 #### [facility] [address] [place], [address] Hepatitis Panel Acuteon 10-0 COMMENT Comment Normal . [facility] Comment on above: Result Comment: Not infected with HCV unless early or acute infection is suspected (which may be delayed in an immunocompromised individual), or other evidence exists to indicate HCV infection. Performed at: [facility] [id number] Leaf Sorter: Rafi Merchant PhD, Phone: [phone] Performed By: #### L 501.3620, L100.0100, L500.2500 #### [facility] [address] [place], [address] HEP B CORE,IgM Negative Normal Negative [facility] Comment on above: Performed By: #### L 501.3620, L100.0100, L500.2500 #### [facility] [address] [place], [address] HEP B SURF AG Negative Normal Negative [facility] Comment on above: Performed By: #### L 501.3620, L100.0100, L500.2500 #### [facility] [address] [place], [address] HEP C VIRUS AB Non-Reactive Normal Non Reactive [facility] Comment on above: Performed By: #### L 501.3620, L100.0100, L500.2500 #### [facility] [address] [place], [address] HEPATITIS A-IgM Negative Normal Negative [facility] Comment on above: Performed By: #### L 501.3620, L100.0100, L500.2500 #### [facility] [address] [place], [address] CBC-Complete Blood Cnt No Di ffon 12-28-2022 Erythrocyte distribution width (RBC) [Ratio] 12.6 % Normal 11.6-14.6 [facility] Comment on above: Performed By: #### L 501.9100, L505.5000 #### [facility] [address] [place], [address] Hematocrit (Bld) [Volume fraction] 44.2 % Normal 40-54 [facility] Comment on above: Performed By: #### L 501.9100, L505.5000 #### [facility] [address] [place], [address] Hemoglobin (Bld) [Mass/Vol] 14.8 g/dL Normal 13.0-16.5 [facility] Comment on above: Performed By: #### L 501.9100, L505.5000 #### [facility] [address] [place], [address] MCH (RBC) [Entitic mass] 27.9 pg Normal 27.0-32.0 [facility] Comment on above: Performed By: #### L 501.9100, L505.5000 #### [facility] [address] [place], [address] MCHC (RBC) [Mass/Vol] 33.5 g/dL Normal 32-[address] [facility] Comment on above: Performed By: #### L 501.9100, L505.5000 #### [facility] [address] [place], [address] MCV (RBC) [Entitic vol] 83.2 fL Normal 80-94 [facility] Comment on above: Performed By: #### L 501.9100, L505.5000 #### [facility] [address] [place], [address] Platelet mean volume (Bld) [Entitic vol] 9.2 fL Normal 6.2-12.0 [facility] Comment on above: Performed By: #### L 501.9100, L505.5000 #### [facility] [address] [place], [address] Platelets (Bld) [#/Vol] 346 10*3/uL Normal 150-450 [facility] Comment on above: Performed By: #### L 501.9100, L505.5000 #### [facility] [address] [place], [address] RBC (Bld) [#/Vol] 5.31 10*6/uL Normal 4.6-6.2 [facility] Comment on above: Performed By: #### L 501.9100, L505.5000 #### [facility] [address] [place], [address] RDW SD 38.3 fl Normal 35.1-43.9 [facility] Comment on above: Performed By: #### L 501.9100, L505.5000 #### [facility] [address] [place], [address] WBC (Bld) [#/Vol] 15.4 10*3/uL High 4.4-11.0 [facility] Comment on above: Performed By: #### L 501.9100, L505.5000 #### [facility] [address] [place], [address] Comprehensive Metabolic Prof ilon 12-28-2022 Albumin [Mass/Vol] 3.9 g/dL Normal 3.2-5.0 [facility] Comment on above: Performed By: #### L 501.9100, L505.5000 #### [facility] [address] [place], [address] Albumin/Globulin [Mass ratio] 1.1 {ratio} Normal 0.9-2.4 [facility] Comment on above: Performed By: #### L 501.9100, L505.5000 #### [facility] [address] [place], [address] ALK P 90 U/L Normal 45-117 [facility] Comment on above: Performed By: #### L 501.9100, L505.5000 #### [facility] [address] [place], [address] ALT [Catalytic activity/Vol] 24 U/L Normal 16-61 [facility] Comment on above: Performed By: #### L 501.9100, L505.5000 #### [facility] [address] [place], [address] AST [Catalytic activity/Vol] 12 U/L Low 15-37 [facility] Comment on above: Performed By: #### L 501.9100, L505.5000 #### [facility] [address] [place], [address] Bilirubin [Mass/Vol] 1.40 mg/dL High 0.20-1.00 [facility] Comment on above: Result Comment: For patients on eltrombopag therapy, use of Dimension Raymond TBIL is not recommended. Performed By: #### L 501.9100, L505.5000 #### [facility] [address] [place], [address] BUN/CRE 15.0 RATIO Normal 10-20 [facility] Comment on above: Performed By: #### L 501.9100, L505.5000 #### [facility] [address] [place], [address] CA,Total 9.0 mg/dL Normal 8.5-10.1 [facility] Comment on above: Performed By: #### L 501.9100, L505.5000 #### [facility] [address] [place], [address] Chloride [Moles/Vol] 104 mmol/L Normal 98-107 [facility] Comment on above: Performed By: #### L 501.9100, L505.5000 #### [facility] [address] [place], [address] CO2 [Moles/Vol] 24.0 mmol/L Normal 21.0-32.0 [facility] Comment on above: Performed By: #### L 501.9100, L505.5000 #### [facility] [address] [place], [address] Creatinine [Mass/Vol] 1.13 mg/dL Normal 0.70-1.[address] [facility] Comment on above: Result Comment: The validity of the calculated GFR GFRAA in patients over 70 years has not been determined. Clinical correlation is essential. Performed By: #### L 501.9100, L505.5000 #### [facility] [address] [place], [address] ECRCL 107.92 ml/min Normal [facility] Comment on above: Performed By: #### L 501.9100, L505.5000 #### [facility] [address] [place], [address] EST GFR - AA 100 mL/min Normal >60 [facility] Comment on above: Result Comment: Afri can Somali GFR Calc Performed By: #### L 501.9100, L505.5000 #### [facility] [address] [place], [address] GAP 7 Normal 5-15 [facility] Comment on above: Performed By: #### L 501.9100, L505.5000 #### [facility] [address] [place], [address] GFR/1.73 sq M.predicted among non-blacks MDRD (S/P/Bld) [Vol rate/Area] 83 mL/min/{1.73_m2} Normal >60 [facility] Comment on above: Result Comment: Non- GFR Calc Performed By: #### L 501.9100, L505.5000 #### [facility] [address] [place], [address] Globulin (S) [Mass/Vol] 3.4 g/dL Normal 2.2-4.2 [facility] Comment on above: Performed By: #### L 501.9100, L505.5000 #### [facility] [address] [place], [address] Glucose [Mass/Vol] 140 mg/dL High 74-106 [facility] Comment on above: Result Comment: Fast ing Glucose result greater than or equal to 126 mg/dL suggests DIABETES MELLITUS per A.D.A. criteria. Performed By: #### L 501.9100, L505.5000 #### [facility] [address] [place], [address] Potassium [Moles/Vol] 3.3 mmol/L Low 3.5-5.[address] [facility] Comment on above: Performed By: #### L 501.9100, L505.5000 #### [facility] [address] [place], [address] Sodium [Moles/Vol] 135 mmol/L Low 136-145 [facility] Comment on above: Performed By: #### L 501.9100, L505.5000 #### [facility] [address] [place], [address] T PROT 7.3 g/dL Normal 6.4-8.2 [facility] Comment on above: Performed By: #### L 501.9100, L505.5000 #### [facility] [address] [place], [address] Urea nitrogen [Mass/Vol] 17 mg/dL Normal 7-18 [facility] Comment on above: Performed By: #### L 501.9100, L505.5000 #### [facility] [address] [place], [address] Alcohol, Blood (Medical)-Ser umon 12-27-2022 SERUM ETOH < 3.0 Normal [facility] Comment on above: Result Comment: The serum:whole blood ethanol ratio is approximately 1.14 and varies slightly with hematocrit. Medical Alcohol reference interval and critical value in non-tolerant individuals; 50 - 100 Impairment 100 Intoxication 100 - 250 Severe Poisoning 250 - 400 Deep/possible fatal coma Performed By: #### L 501.3620, L100.0100, L500.2500 #### [facility] [address] [place], [address] Brain/Head without Contrasto n 12-27-2022 Brain/Head without Contrast [facility] [address] [place] [address] Brain/Head without Contrast MR#: [id number] Acct: [id number] Name: BRYAN LUNDBERG Rep #: [id number] : 1995 M 27 From: [place] MD PCP: EVELYN Phan Status: REG ER Study: Brain/Head without Contrast Date of Exam: 09/13 Exam# [id number] Ordering Dr: [place] [id number] EXAMINATION : Head CT w/out contrast HISTORY [...] CC: Dr. Cecilio Acosta DO; EVELYN Phan Instructor Of Spanish: Signed Normal [facility] CBC W/Diff, Automatedon Absolute Lymph 1.11 X10 3/uL Normal 0.83-4.51 [facility] Comment on above: Performed By: #### L 501.3620, L100.0100, L500.2500 #### [facility] [address] [place], [address] Absolute Neut 14.9 X10 3/uL High 2.0-7.7 [facility] Comment on above: Performed By: #### L 501.3620, L100.0100, L500.2500 #### [facility] [address] [place], [address] Basophils/100 WBC (Bld) 0.2 % Normal 0-1 [facility] Comment on above: Performed By: #### L 501.3620, L100.0100, L500.2500 #### [facility] [address] [place], [address] Eosinophils/100 WBC (Bld) 0.4 % Normal 0-5 [facility] Comment on above: Performed By: #### L 501.3620, L100.0100, L500.2500 #### [facility] [address] [place], [address] Erythrocyte distribution width (RBC) [Ratio] 12.6 % Normal 11.6-14.6 [facility] Comment on above: Performed By: #### L 501.3620, L100.0100, L500.2500 #### [facility] [address] [place], [address] Hematocrit (Bld) [Volume fraction] 47.4 % Normal 40-54 [facility] Comment on above: Performed By: #### L 501.3620, L100.0100, L500.2500 #### [facility] [address] [place], [address] Hemoglobin (Bld) [Mass/Vol] 15.8 g/dL Normal 13.0-16.5 [facility] Comment on above: Performed By: #### L 501.3620, L100.0100, L500.2500 #### [facility] [address] [place], [address] IG% 0.500 Normal 0.0-0.9 [facility] Comment on above: Result Comment: IG% - Immature Granulocytes (promyelocytes, myelocytes and metamyelocytes) > 1% indicates that a LEFT SHIFT is Present. Performed By: #### L 501.3620, L100.0100, L500.2500 #### [facility] [address] [place], [address] Lymphocytes/100 WBC (Bld) 6.5 % Low 19-41 [facility] Comment on above: Performed By: #### L 501.3620, L100.0100, L500.2500 #### [facility] [address] [place], [address] MCH (RBC) [Entitic mass] 27.8 pg Normal 27.0-32.0 [facility] Comment on above: Performed By: #### L 501.3620, L100.0100, L500.2500 #### [facility] [address] [place], [address] MCHC (RBC) [Mass/Vol] 33.3 g/dL Normal 32-[address] [facility] Comment on above: Performed By: #### L 501.3620, L100.0100, L500.2500 #### [facility] [address] [place], [address] MCV (RBC) [Entitic vol] 83.5 fL Normal 80-94 [facility] Comment on above: Performed By: #### L 501.3620, L100.0100, L500.2500 #### [facility] [address] [place], [address] Monocytes/100 WBC (Bld) 4.7 % Normal 0-10 [facility] Comment on above: Performed By: #### L 501.3620, L100.0100, L500.2500 #### [facility] [address] [place], [address] Neutrophils/100 WBC (Bld) 87.7 % High 47-70 [facility] Comment on above: Performed By: #### L 501.3620, L100.0100, L500.2500 #### [facility] [address] [place], [address] Nucleated RBC (Bld) [#/Vol] 0 10*3/uL Normal 0-5 [facility] Comment on above: Performed By: #### L 501.3620, L100.0100, L500.2500 #### [facility] [address] [place], [address] Platelet mean volume (Bld) [Entitic vol] 9.3 fL Normal 6.2-12.0 [facility] Comment on above: Performed By: #### L 501.3620, L100.0100, L500.2500 #### [facility] [address] [place], [address] Platelets (Bld) [#/Vol] 362 10*3/uL Normal 150-450 [facility] Comment on above: Performed By: #### L 501.3620, L100.0100, L500.2500 #### [facility] [address] [place], [address] RBC (Bld) [#/Vol] 5.68 10*6/uL Normal 4.6-6.2 [facility] Comment on above: Performed By: #### L 501.3620, L100.0100, L500.2500 #### [facility] [address] [place], [address] RDW SD 38.3 fl Normal 35.1-43.9 [facility] Comment on above: Performed By: #### L 501.3620, L100.0100, L500.2500 #### [facility] [address] [place], [address] WBC (Bld) [#/Vol] 17.0 10*3/uL High 4.4-11.0 [facility] Comment on above: Performed By: #### L 501.3620, L100.0100, L500.2500 #### [facility] [address] [place], [address] Chest 1 View (Portable)on Chest 1 View (Portable) [facility] Imaging Services [address] [place] [address] Chest 1 View (Portable) MR#: [id number] Acct: [id number] Name: BRYAN LUNDBERG Rep #: [id number] : 1995 M 27 From: Edouard Velazquez MD PCP: EVELYN Phan Status: [facility] ER Study: Chest 1 View (Portable) Date of Exam: 12/27/22 Exam# [id number] Ordering Dr: [place] [id number] EXAM: XR CHEST, 1 VIEW CLINICAL INDICATION: [...] CC: Dr. Cecilio Acosta DO; EVELYN Phan Instructor Of Spanish: Signed Normal [facility] Comprehensive Metabolic Prof ilon 12-27-2022 Albumin [Mass/Vol] 4.1 g/dL Normal 3.2-5.0 [facility] Comment on above: Performed By: #### L 501.3620, L100.0100, L500.2500 #### [facility] [address] [place], [address] Albumin/Globulin [Mass ratio] 1.1 {ratio} Normal 0.9-2.4 [facility] Comment on above: Performed By: #### L 501.3620, L100.0100, L500.2500 #### [facility] [address] [place], [address] ALK P 92 U/L Normal 45-117 [facility] Comment on above: Performed By: #### L 501.3620, L100.0100, L500.2500 #### [facility] [address] [place], [address] ALT [Catalytic activity/Vol] 25 U/L Normal 16-61 [facility] Comment on above: Performed By: #### L 501.3620, L100.0100, L500.2500 #### [facility] [address] [place], [address] AST [Catalytic activity/Vol] 15 U/L Normal 15-37 [facility] Comment on above: Performed By: #### L 501.3620, L100.0100, L500.2500 #### [facility] [address] [place], [address] Bilirubin [Mass/Vol] 1.30 mg/dL High 0.20-1.00 [facility] Comment on above: Result Comment: For patients on eltrombopag therapy, use of Dimension Raymond TBIL is not recommended. Performed By: #### L 501.3620, L100.0100, L500.2500 #### [facility] [address] [place], [address] BUN/CRE 15.0 RATIO Normal 10-20 [facility] Comment on above: Performed By: #### L 501.3620, L100.0100, L500.2500 #### [facility] [address] [place], [address] CA,Total 9.7 mg/dL Normal 8.5-10.1 [facility] Comment on above: Performed By: #### L 501.3620, L100.0100, L500.2500 #### [facility] [address] [place], [address] Chloride [Moles/Vol] 110 mmol/L High 98-107 [facility] Comment on above: Performed By: #### L 501.3620, L100.0100, L500.2500 #### [facility] [address] [place], [address] CO2 [Moles/Vol] 22.0 mmol/L Normal 21.0-32.0 [facility] Comment on above: Performed By: #### L 501.3620, L100.0100, L500.2500 #### [facility] [address] [place], [address] Creatinine [Mass/Vol] 1.00 mg/dL Normal 0.70-1.[address] [facility] Comment on above: Result Comment: The validity of the calculated GFR GFRAA in patients over 70 years has not been determined. Clinical correlation is essential. Performed By: #### L 501.3620, L100.0100, L500.2500 #### [facility] [address] [place], [address] ECRCL 121.95 ml/min Normal [facility] Comment on above: Performed By: #### L 501.3620, L100.0100, L500.2500 #### [facility] [address] [place], [address] EST GFR - AA 115 mL/min Normal >60 [facility] Comment on above: Result Comment: Afri can Somali GFR Calc Performed By: #### L 501.3620, L100.0100, L500.2500 #### [facility] [address] [place], [address] GAP 5 Normal 5-15 [facility] Comment on above: Performed By: #### L 501.3620, L100.0100, L500.2500 #### [facility] [address] [place], [address] GFR/1.73 sq M.predicted among non-blacks MDRD (S/P/Bld) [Vol rate/Area] 95 mL/min/{1.73_m2} Normal >60 [facility] Comment on above: Result Comment: Non- GFR Calc Performed By: #### L 501.3620, L100.0100, L500.2500 #### [facility] [address] [place], [address] Globulin (S) [Mass/Vol] 3.6 g/dL Normal 2.2-4.2 [facility] Comment on above: Performed By: #### L 501.3620, L100.0100, L500.2500 #### [facility] [address] [place], [address] Glucose [Mass/Vol] 113 mg/dL High 74-106 [facility] Comment on above: Result Comment: Fast ing Glucose result from 100 to 125 mg/dL suggests IMPAIRED HOMEOSTASIS per A.D.A. criteria. Performed By: #### L 501.3620, L100.0100, L500.2500 #### [facility] [address] [place], [address] Potassium [Moles/Vol] 3.5 mmol/L Normal 3.5-5.[address] [facility] Comment on above: Performed By: #### L 501.3620, L100.0100, L500.2500 #### [facility] [address] [place], [address] Sodium [Moles/Vol] 137 mmol/L Normal 136-145 [facility] Comment on above: Performed By: #### L 501.3620, L100.0100, L500.2500 #### [facility] [address] [place], [address] T PROT 7.7 g/dL Normal 6.4-8.2 [facility] Comment on above: Performed By: #### L 501.3620, L100.0100, L500.2500 #### [facility] [address] [place], [address] Urea nitrogen [Mass/Vol] 15 mg/dL Normal 7-18 [facility] Comment on above: Performed By: #### L 501.3620, L100.0100, L500.2500 #### [facility] [address] [place], [address] H AND P Exam - Hospitaliston 12-27-2022 H&P Exam - Hospitalist [facility] Medical Records Department [address] [place] [address] H P Exam - Hospitalist 12/27/22 1756 MR#: [id number] Acct: [id number] Name: BRYAN LUNDBERG Rep #: [id number] : 1995 27 From: Regino Ledesma DO PCP: EVELYN Phan Status:ADM [place] [facility] [id number] HPI - General General Date of Admission: 12/27/22 Date of Service: 12/27/22 Chief Complaint: Opiate withdrawal HPI Narrative BRYAN LUNDBERG, is a 27 M with history of opiate use disorder and polysubstance use disorder who presented to [facility] ED on 12/27/2022 after a fall. [...] CT brain and C-spine was also nonacute. [facility] Medical History Acute opioid withdrawal Asthma Cannabis [...] H, RB (more content not included)... Normal [facility] HIV - WCHon 12-27-2022 HIV Non-Reactive Normal Nonreactive [facility] Comment on above: Performed By: #### L 501.3620, L100.0100, L500.2500 #### [facility] [address] [facility] [place], [address] Spine Cervical without Contr ason 12-27-2022 Spine Cervical without Contras [facility] Imaging Services [address] [place] [address] Spine Cervical without Contras MR#: [id number] Acct: [id number] Name: BRYAN LUNDBERG Rep #: [id number] : 1995 M 27 From: [place] MD PCP: EVELYN Phan Status: REG ER Study: Spine Cervical without Contras Date of Exam: Exam# [id number] Ordering Dr: [place] [id number] INDICATION: trauma EXAMINATION: CT CERVICAL SPINE - [...] CC: Dr. Cecilio Acosta DO; EVELYN Phan Instructor Of Spanish: Signed Normal [facility] Urinalysis, Completeon 12-27 Mucus Ql (Urine sed) 1+ /hpf Normal [facility] Comment on above: Order Comment: CLEAN CATCH Performed By: #### L 500.4050, L100.0100 #### [facility] [address] [place], [place], [address] BACTERIA 1+ /hpf Normal None Seen [facility] Comment on above: Order Comment: CLEAN CATCH Performed By: #### L 500.4050, L100.0100 #### [facility] [address] [place], [address] CA OX CRYSTAL 2+ /hpf Normal [facility] Comment on above: Order Comment: CLEAN CATCH Performed By: #### L 500.4050, L100.0100 #### [facility] [address] [place], [address] EPI,SQUAMOUS 0 SEEN Normal 0-5 [facility] Comment on above: Order Comment: CLEAN CATCH Performed By: #### L 500.4050, L100.0100 #### [facility] [address] [place], [address] RBC 0 SEEN Normal 0-5 [facility] Comment on above: Order Comment: CLEAN CATCH Performed By: #### L 500.4050, L100.0100 #### [facility] [address] [place], [address] WBC 0 SEEN Normal 0-5 [facility] Comment on above: Order Comment: CLEAN CATCH Performed By: #### L 500.4050, L100.0100 #### [facility] [address] [place], [address] Urine Drug Screen (VISTA)on 12-27-2022 AMPHETAMINES Negative Normal <1000 ng/mL [facility] Comment on above: Performed By: #### L 501.3620, L100.0100, L500.2500 #### [facility] [address] [place], [address] BARBITIURATES Negative Normal < 200 ng/mL [facility] Comment on above: Performed By: #### L 501.3620, L100.0100, L500.2500 #### [facility] [address] [place], [address] BENZODIAZIPINE Negative Normal < 200 ng/mL [facility] Comment on above: Performed By: #### L 501.3620, L100.0100, L500.2500 #### [facility] [address] [place], [address] COCAINE Negative Normal < 300 ng/mL [facility] Comment on above: Performed By: #### L 501.3620, L100.0100, L500.2500 #### [facility] [address] [place], [address] ECSTACY Positive Abnormal < 500 ng/mL [facility] Comment on above: Performed By: #### L 501.3620, L100.0100, L500.2500 #### [facility] [address] [place], [address] METHADONE Negative Normal < 300 ng/mL [facility] Comment on above: Performed By: #### L 501.3620, L100.0100, L500.2500 #### [facility] [address] [place], [address] OPIATES Negative Normal < 300 ng/mL [facility] Comment on above: Performed By: #### L 501.3620, L100.0100, L500.2500 #### [facility] [address] [place], [address] PCP Negative Normal < 25 ng/mL [facility] Comment on above: Performed By: #### L 501.3620, L100.0100, L500.2500 #### [facility] [address] [place], [address] THC Positive Abnormal < 50 ng/mL [facility] Comment on above: Performed By: #### L 501.3620, L100.0100, L500.2500 #### [facility] [address] [place], [address] VISTA UDS PH 5 Normal [facility] Comment on above: Performed By: #### L 501.3620, L100.0100, L500.2500 #### [facility] [address] [place], [address] CNOVon 11-04-2022 CNOV Office Visit (FAMPWS ) BRYAN LUNDBERG ([id number]) 1995 Date Time Provider Department 11/04/22 1:40 PM [facility] your visit today, we recorded [...] of Face Generalized Anxiety Disorder Heroin Abuse ([facility]) Current Outpatient Medications Medication Sig Dispense Refill [...] 1 tablet (more content not included)... Normal [facility] Discharge Instructionon 08-23 Discharge Instruction [facility] Medical Records Department [address] [place] [address] Instructions for Home/Discharge Instructions 09/17/22 1042 MR#: [id number] Acct: [id number] Name: BRYAN LUNDBERG Rep #: [id number] : 1995 26 From: Arnol Somers DO [...] Nicholson; Dr. Xander Olivera MD Signed Normal [facility] Basic Metabolic Profile (BMP )on 09-16-2022 BUN/CRE 17.4 RATIO Normal 10-20 [facility] Comment on above: Performed By: #### L 501.9100, L505.5000 #### [facility] [address] [place], [address] CA,Total 8.8 mg/dL Normal 8.5-10.1 [facility] Comment on above: Performed By: #### L 501.9100, L505.5000 #### [facility] [address] [place], [address] Chloride [Moles/Vol] 100 mmol/L Normal 98-107 [facility] Comment on above: Performed By: #### L 501.9100, L505.5000 #### [facility] [address] [place], [address] CO2 [Moles/Vol] 25.0 mmol/L Normal 21.0-32.0 [facility] Comment on above: Performed By: #### L 501.9100, L505.5000 #### [facility] [address] [place], [address] Creatinine [Mass/Vol] 1.09 mg/dL Normal 0.70-1.[address] [facility] Comment on above: Result Comment: The validity of the calculated GFR GFRAA in patients over 70 years has not been determined. Clinical correlation is essential. Performed By: #### L 501.9100, L505.5000 #### [facility] [address] [place], [address] ECRCL 110.69 ml/min Normal [facility] Comment on above: Performed By: #### L 501.9100, L505.5000 #### [facility] [address] [place], [address] EST GFR - AA 104 mL/min Normal >60 [facility] Comment on above: Result Comment: Afri can Somali GFR Calc Performed By: #### L 501.9100, L505.5000 #### [facility] [address] [place], [address] GAP 7 Normal 5-15 [facility] Comment on above: Performed By: #### L 501.9100, L505.5000 #### [facility] [address] [place], [address] GFR/1.73 sq M.predicted among non-blacks MDRD (S/P/Bld) [Vol rate/Area] 86 mL/min/{1.73_m2} Normal >60 [facility] Comment on above: Result Comment: Non- GFR Calc Performed By: #### L 501.9100, L505.5000 #### [facility] [address] [place], [address] Glucose [Mass/Vol] 115 mg/dL High 74-106 [facility] Comment on above: Result Comment: Fast ing Glucose result from 100 to 125 mg/dL suggests IMPAIRED HOMEOSTASIS per A.D.A. criteria. Performed By: #### L 501.9100, L505.5000 #### [facility] [address] [place], [address] Potassium [Moles/Vol] 3.2 mmol/L Low 3.5-5.[address] [facility] Comment on above: Performed By: #### L 501.9100, L505.5000 #### [facility] [address] [place], [address] Sodium [Moles/Vol] 132 mmol/L Low 136-145 [facility] Comment on above: Performed By: #### L 501.9100, L505.5000 #### [facility] [address] [place], [address] Urea nitrogen [Mass/Vol] 19 mg/dL High 7-18 [facility] Comment on above: Performed By: #### L 501.9100, L505.5000 #### [facility] [address] [place], [address] Basophil percentageOrdered B y: Dr. Somers on 09-16-2022 Chloride [Moles/Vol] 100 mmol/L 98-107 [facility] Glucose [Mass/Vol] 115 mg/dL 74-106 [facility] Comment on above: Fasting Glucose resu lt from 100 to 125 mg/dL suggests IMPAIRED HOMEOSTASIS per A.D.A. criteria. Potassium [Moles/Vol] 3.2 mmol/L 3.5-5.[address] [facility] Sodium [Moles/Vol] 132 mmol/L 136-145 [facility] - Chemistry and C hemistry - challengeOrdered By: Dr. Somers on 09-16-2022 CO2 [Moles/Vol] 25.0 mmol/L 21.0-32.0 [facility] Urea nitrogen/Creatinine [Mass ratio] 17.4 mg/mg 10-20 [facility] No Panel InformationOrdered By: Dr. Somers on 09-16-2022 Estimated Creatinine Clearance Calc 110.69 ml/min [facility] Estimated GFR (MDRD) Amer 104 mL/min >60 [facility] Comment on above: GFR Calc Estimated GFR (MDRD) Non-Af Amer 86 mL/min >60 [facility] Comment on above: Non- GFR Calc Serum or plasma calcium maritza urement (mass/volume)Ordered By: Dr. Somers on 09-16-2022 Calcium [Mass/Vol] 8.8 mg/dL 8.5-10.1 [facility] Serum or plasma creatinine m easurement (mass/volume)Ordered By: Dr. Somers on 09-16-2022 Creatinine [Mass/Vol] 1.09 mg/dL 0.70-1.[address] [facility] Comment on above: The validity of the calculated GFR & GFRAA in patients over 70 years has not been determined. Clinical correlation is essential. Serum or plasma urea nitroge n measurement (mass/volume)Ordered By: Dr. Somers on 09-16-2022 Urea nitrogen [Mass/Vol] 19 mg/dL 10-08 [facility] Thin prep Papanicolaou smear with manual screeningOrdered By: Dr. Somers on 09-16-2022 Thin prep Papanicolaou smear with manual screening 08-05 [facility] Alcohol, Blood (Medical)-Ser umon 09-15-2022 SERUM ETOH < 3.0 Normal [facility] Comment on above: Result Comment: The serum:whole blood ethanol ratio is approximately 1.14 and varies slightly with hematocrit. Medical Alcohol reference interval and critical value in non-tolerant individuals; 50 - 100 Impairment 100 Intoxication 100 - 250 Severe Poisoning 250 - 400 Deep/possible fatal coma Performed By: #### L 501.9100, L505.5000 #### [facility] [address] [place], [address] CBC W/Diff, Automatedon 08-23 Absolute Lymph 1.77 X10 3/uL Normal 0.83-4.51 [facility] Comment on above: Performed By: #### L 501.9100, L505.5000 #### [facility] [address] [place], [address] Absolute Neut 9.7 X10 3/uL High 2.0-7.7 [facility] Comment on above: Performed By: #### L 501.9100, L505.5000 #### [facility] [address] [place], [address] Basophils/100 WBC (Bld) 0.2 % Normal 0-1 [facility] Comment on above: Performed By: #### L 501.9100, L505.5000 #### [facility] [address] [place], [address] Eosinophils/100 WBC (Bld) 0.1 % Normal 0-5 [facility] Comment on above: Performed By: #### L 501.9100, L505.5000 #### [facility] [address] [place], [address] Erythrocyte distribution width (RBC) [Ratio] 11.9 % Normal 11.6-14.6 [facility] Comment on above: Performed By: #### L 501.9100, L505.5000 #### [facility] [address] [place], [address] Hematocrit (Bld) [Volume fraction] 48.6 % Normal 40-54 [facility] Comment on above: Performed By: #### L 501.9100, L505.5000 #### [facility] [address] [place], [address] Hemoglobin (Bld) [Mass/Vol] 17.3 g/dL High 13.0-16.5 [facility] Comment on above: Performed By: #### L 501.9100, L505.5000 #### [facility] [address] [place], [address] IG% 0.400 Normal 0.0-0.9 [facility] Comment on above: Result Comment: IG% - Immature Granulocytes (promyelocytes, myelocytes and metamyelocytes) > 1% indicates that a LEFT SHIFT is Present. Performed By: #### L 501.9100, L505.5000 #### [facility] [address] [place], [address] Lymphocytes/100 WBC (Bld) 14.1 % Low 19-41 [facility] Comment on above: Performed By: #### L 501.9100, L505.5000 #### [facility] [address] [place], [address] MCH (RBC) [Entitic mass] 27.8 pg Normal 27.0-32.0 [facility] Comment on above: Performed By: #### L 501.9100, L505.5000 #### [facility] [address] [place], [address] MCHC (RBC) [Mass/Vol] 35.6 g/dL Normal 32-[address] [facility] Comment on above: Performed By: #### L 501.9100, L505.5000 #### [facility] [address] [place], [address] MCV (RBC) [Entitic vol] 78.0 fL Low 80-94 [facility] Comment on above: Performed By: #### L 501.9100, L505.5000 #### [facility] [address] [place], [address] Monocytes/100 WBC (Bld) 8.1 % Normal 0-10 [facility] Comment on above: Performed By: #### L 501.9100, L505.5000 #### [facility] [address] [place], [address] Neutrophils/100 WBC (Bld) 77.1 % High 47-70 [facility] Comment on above: Performed By: #### L 501.9100, L505.5000 #### [facility] [address] [place], [address] Nucleated RBC (Bld) [#/Vol] 0 10*3/uL Normal 0-5 [facility] Comment on above: Performed By: #### L 501.9100, L505.5000 #### [facility] [address] [place], [address] Platelet mean volume (Bld) [Entitic vol] 9.5 fL Normal 6.2-12.0 [facility] Comment on above: Performed By: #### L 501.9100, L505.5000 #### [facility] [address] [place], [address] Platelets (Bld) [#/Vol] 345 10*3/uL Normal 150-450 [facility] Comment on above: Performed By: #### L 501.9100, L505.5000 #### [facility] [address] [place], [address] RBC (Bld) [#/Vol] 6.23 10*6/uL High 4.6-6.2 [facility] Comment on above: Performed By: #### L 501.9100, L505.5000 #### [facility] [address] [place], [address] RDW SD 33.5 fl Low 35.1-43.9 [facility] Comment on above: Performed By: #### L 501.9100, L505.5000 #### [facility] [address] [place], [address] WBC (Bld) [#/Vol] 12.6 10*3/uL High 4.4-11.0 [facility] Comment on above: Performed By: #### L 501.9100, L505.5000 #### [facility] [address] [place], [address] Comprehensive Metabolic Prof [facility] 09-15-2022 Albumin [Mass/Vol] 4.7 g/dL Normal 3.2-5.0 [facility] Comment on above: Performed By: #### L 501.9100, L505.5000 #### [facility] [address] [place], [address] Albumin/Globulin [Mass ratio] 1.1 {ratio} Normal 0.9-2.4 [facility] Comment on above: Performed By: #### L 501.9100, L505.5000 #### [facility] [address] [place], [address] ALK P 121 U/L High 45-117 [facility] Comment on above: Performed By: #### L 501.9100, L505.5000 #### [facility] [address] [place], [address] ALT [Catalytic activity/Vol] 29 U/L Normal 16-61 [facility] Comment on above: Performed By: #### L 501.9100, L505.5000 #### [facility] [address] [place], [address] AST [Catalytic activity/Vol] 26 U/L Normal 15-37 [facility] Comment on above: Performed By: #### L 501.9100, L505.5000 #### [facility] [address] [place], [address] Bilirubin [Mass/Vol] 1.10 mg/dL High 0.20-1.00 [facility] Comment on above: Result Comment: For patients on eltrombopag therapy, use of Dimension Raymond TBIL is not recommended. Performed By: #### L 501.9100, L505.5000 #### [facility] [address] [place], [address] BUN/CRE 19.3 RATIO Normal 10-20 [facility] Comment on above: Performed By: #### L 501.9100, L505.5000 #### [facility] [address] [place], [address] CA,Total 9.9 mg/dL Normal 8.5-10.1 [facility] Comment on above: Performed By: #### L 501.9100, L505.5000 #### [facility] [address] [place], [address] Chloride [Moles/Vol] 92 mmol/L Low 98-107 [facility] Comment on above: Performed By: #### L 501.9100, L505.5000 #### [facility] [address] [place], [address] CO2 [Moles/Vol] 26.0 mmol/L Normal 21.0-32.0 [facility] Comment on above: Performed By: #### L 501.9100, L505.5000 #### [facility] [address] [place], [address] Creatinine [Mass/Vol] 1.14 mg/dL Normal 0.70-1.[address] [facility] Comment on above: Result Comment: The validity of the calculated GFR GFRAA in patients over 70 years has not been determined. Clinical correlation is essential. Performed By: #### L 501.9100, L505.5000 #### [facility] [address] [place], [address] ECRCL 105.15 ml/min Normal [facility] Comment on above: Performed By: #### L 501.9100, L505.5000 #### [facility] [address] [place], [address] EST GFR - AA 99 mL/min Normal >60 [facility] Comment on above: Result Comment: Afri can Somali GFR Calc Performed By: #### L 501.9100, L505.5000 #### [facility] [address] [place], [address] GAP 11 Normal 5-15 [facility] Comment on above: Performed By: #### L 501.9100, L505.5000 #### [facility] [address] [place], [address] GFR/1.73 sq M.predicted among non-blacks MDRD (S/P/Bld) [Vol rate/Area] 82 mL/min/{1.73_m2} Normal >60 [facility] Comment on above: Result Comment: Non- GFR Calc Performed By: #### L 501.9100, L505.5000 #### [facility] [address] [place], [address] Globulin (S) [Mass/Vol] 4.2 g/dL Normal 2.2-4.2 [facility] Comment on above: Performed By: #### L 501.9100, L505.5000 #### [facility] [address] [place], [address] Glucose [Mass/Vol] 115 mg/dL High 74-106 [facility] Comment on above: Result Comment: Fast ing Glucose result from 100 to 125 mg/dL suggests IMPAIRED HOMEOSTASIS per A.D.A. criteria. Performed By: #### L 501.9100, L505.5000 #### [facility] [address] [place], [address] Potassium [Moles/Vol] 3.3 mmol/L Low 3.5-5.[address] [facility] Comment on above: Performed By: #### L 501.9100, L505.5000 #### [facility] [address] [place], [address] Sodium [Moles/Vol] 129 mmol/L Low 136-145 [facility] Comment on above: Performed By: #### L 501.9100, L505.5000 #### [facility] [address] [place], [address] T PROT 8.9 g/dL High 6.4-8.2 [facility] Comment on above: Performed By: #### L 501.9100, L505.5000 #### [facility] [address] [place], [address] Urea nitrogen [Mass/Vol] 22 mg/dL High 7-18 [facility] Comment on above: Performed By: #### L 501.9100, L505.5000 #### [facility] [address] [place], [address] Emergency Department Summary on 09-15-2022 Emergency Department Summary [facility] Medical Records Department [address] [place] [address] Emergency Department Summary 09/14/22 MR#: [id number] Acct: [id number] Name: BRYAN LUNDBERG Rep #: [id number] : 1995 26 From: Boston Menendez MD PCP: EVELYN Phan Status:ADM IN Location: NE3 WP293-5 HPI History of Present Illness Chief Complaint: [...] yet but he does feel somewhat dehydrated. [facility] Medical History Acute opioid withdrawal [...] making narrative: (more content not included)... Normal [facility] H AND P Exam - Hospitaliston 09-15-2022 H&P Exam - Hospitalist [facility] Medical Records Department [address] [place] [address] H P Exam - Hospitalist 09/14/22 2340 MR#: [id number] Acct: [id number] Name: BRYAN LUNDBERG Rep #: [id number] : 1995 26 From: Xander Olivera MD PCP: EVELYN Phan Status:ADM IN Location[place] [facility] [id number] HPI - General General Date of Admission: [...] his body symptoms, and shortness of breath. [facility] Medical History Acute opioid withdrawal Asthma Cannabis [...] 77.1 H, Lymph % (Auto) 14.1 L, [place] % (Auto) 8.1, Eos % (Auto) 0.1, [...] DVT prophyla (more content not included)... Normal [facility] Urine Drug Screen (VISTA)on 09-15-2022 AMPHETAMINES Positive Abnormal <1000 ng/mL [facility] Comment on above: Performed By: #### L 500.4050, L100.0100 #### [facility] [address] [place], [place], [address] BARBITIURATES Negative Normal < 200 ng/mL [facility] Comment on above: Performed By: #### L 500.4050, L100.0100 #### [facility] [address] [place], [place], [address] BENZODIAZIPINE Negative Normal < 200 ng/mL [facility] Comment on above: Performed By: #### L 500.4050, L100.0100 #### [facility] [address] [place], [address] COCAINE Negative Normal < 300 ng/mL [facility] Comment on above: Performed By: #### L 500.4050, L100.0100 #### [facility] [address] [place], [address] ECSTACY Positive Abnormal < 500 ng/mL [facility] Comment on above: Performed By: #### L 500.4050, L100.0100 #### [facility] [address] [place], [address] METHADONE Negative Normal < 300 ng/mL [facility] Comment on above: Performed By: #### L 500.4050, L100.0100 #### [facility] [address] [place], [address] OPIATES Positive Abnormal < 300 ng/mL [facility] Comment on above: Performed By: #### L 500.4050, L100.0100 #### [facility] [address] [place], [address] PCP Negative Normal < 25 ng/mL [facility] Comment on above: Performed By: #### L 500.4050, L100.0100 #### [facility] [address] [place], [address] THC Positive Abnormal < 50 ng/mL [facility] Comment on above: Performed By: #### L 500.4050, L100.0100 #### [facility] [address] [place], [address] VISTA UDS PH 5 Normal [facility] Comment on above: Performed By: #### L 500.4050, L100.0100 #### [facility] [address] [place], [address] Absolute lymphocyte countOrd ered By: Dr. Menendez on 09-14-2022 Lymphocytes Auto (Unsp spec) [#/Vol] 1.77 10*3/uL 0.83-4.51 [facility] Basophil percentageOrdered B y: Dr. Menendez on 09-14-2022 Basophils/100 WBC (Bld) 0.2 % 0-1 [facility] Bilirubin [Mass/Vol] 1.10 mg/dL 0.20-1.00 [facility] Comment on above: For patients on eltr ombopag therapy, use of Dimension Raymond TBIL is not recommended. Chloride [Moles/Vol] 92 mmol/L 98-107 [facility] Eosinophils/100 WBC (Bld) 0.1 % 0-5 [facility] Glucose [Mass/Vol] 115 mg/dL 74-106 [facility] Comment on above: Fasting Glucose resu lt from 100 to 125 mg/dL suggests IMPAIRED HOMEOSTASIS per A.D.A. criteria. Neutrophils (Bld) [#/Vol] 9.7 10*3/uL 2.0-7.7 [facility] Neutrophils/100 WBC (Bld) 77.1 % 47-70 [facility] Potassium [Moles/Vol] 3.3 mmol/L 3.5-5.[address] [facility] Protein [Mass/Vol] 8.9 g/dL 6.4-8.2 [facility] Sodium [Moles/Vol] 129 mmol/L 136-145 [facility] WBC (Bld) [#/Vol] 12.6 10*3/uL 4.4-11.0 [facility] Blood erythrocytes count (nu mber/volume)Ordered By: Dr. Menendez on 09-14-2022 RBC (Bld) [#/Vol] 6.23 10*6/uL 4.6-6.2 [facility] Blood hemoglobin measurement (mass/volume)Ordered By: Dr. Menendez on 09-14-2022 Hemoglobin (Bld) [Mass/Vol] 17.3 g/dL 13.0-16.5 [facility] Blood lymphocytes/100 leukoc ytesOrdered By: Dr. Menendez on 09-14-2022 Lymphocytes/100 WBC (Bld) 14.1 % 19-41 [facility] Blood monocytes/100 leukocyt esOrdered By: Dr. Menendez on 09-14-2022 Monocytes/100 WBC (Bld) 8.1 % 0-10 [facility] Blood platelet mean volumeOr dered By: Dr. Menendez on 09-14-2022 Platelet mean volume (Bld) [Entitic vol] 9.5 fL 6.2-12.0 [facility] Determination of erythrocyte mean corpuscular volume (MCV)Ordered By: Dr. Menendez on 09-14-2022 MCV (RBC) [Entitic vol] 78.0 fL 80-94 [facility] Hematocrit Auto (Bld) [Volum e fraction]Ordered By: Dr. Menendez on 09-14-2022 Hematocrit (Bld) [Volume fraction] 48.6 % 40-54 [facility] - Chemistry and C hemistry - challengeOrdered By: Dr. Menendez on 09-14-2022 ALP [Catalytic activity/Vol] 121 U/L 45-117 [facility] ALT [Catalytic activity/Vol] 29 U/L 16-61 [facility] CO2 [Moles/Vol] 26.0 mmol/L 21.0-32.0 [facility] Globulin (S) [Mass/Vol] 4.2 g/dL 2.2-4.2 [facility] Urea nitrogen/Creatinine [Mass ratio] 19.3 mg/mg 10-20 [facility] - Drug toxicology Ordered By: Dr. Menendez on 09-14-2022 Amphetamines Ql (U) Positive <1000 ng/mL [facility] Benzodiazepines Ql (U) Negative < 200 ng/mL [facility] Cannabinoids Screen Ql (U) Positive < 50 ng/mL [facility] Cocaine Ql (U) Negative < 300 ng/mL [facility] Opiates Ql (U) Positive < 300 ng/mL [facility] - Hematology and Cell countsOrdered By: Dr. Menendez on 09-14-2022 Erythrocyte distribution width (RBC) [Entitic vol] 33.5 fL 35.1-43.9 [facility] Erythrocyte distribution width (RBC) [Ratio] 11.9 % 11.6-14.6 [facility] Immature granulocytes/100 WBC (Bld) 0.400 % 0.0-0.9 [facility] Comment on above: IG% - Immature Granu locytes (promyelocytes, myelocytes and metamyelocytes) > 1% indicates that a LEFT SHIFT is Present. MCH (RBC) [Entitic mass] 27.8 pg 27.0-32.0 [facility] Nucleated RBC/100 WBC (Bld) [Ratio] 0 % 0-5 [facility] MCHC Auto (RBC) [Mass/Vol]Or dered By: Dr. Menendez on 09-14-2022 MCHC (RBC) [Mass/Vol] 35.6 g/dL 32-[address] [facility] No Panel InformationOrdered By: Dr. Menendez on 09-14-2022 MDMA (Ecstasy) Screen Positive < 500 ng/mL [facility] Urine Barbiturates Screen Negative < 200 ng/mL [facility] Urine Drug Screen Comment [facility] Comment on above: CONFIRMATORY TESTING FOR [...] Methadone Screen Negative < 300 ng/mL [facility] Estimated Creatinine Clearance Calc 105.15 ml/min [facility] Estimated GFR (MDRD) Amer 99 mL/min >60 [facility] Comment on above: GFR Calc Estimated GFR (MDRD) Non-Af Amer 82 mL/min >60 [facility] Comment on above: Non- GFR Calc Ethyl Alcohol Level < 3.0 mg/dL [facility] Comment on above: The serum:whole bloo d ethanol ratio is approximately 1.14and varies slightly with hematocrit. Medical Alcohol reference interval and critical value innon-tolerant individuals; 50 - 100 Impairment 100 Intoxication 100 - 250 Severe Poisoning 250 - 400 Deep/possible fatal coma Platelets bldOrdered By: Dr. Menendez on 09-14-2022 Platelets (Bld) [#/Vol] 345 10*3/uL 150-450 [facility] Serum or plasma albumin maritza urement (mass/volume)Ordered By: Dr. Menendez on 09-14-2022 Albumin [Mass/Vol] 4.7 g/dL 3.2-5.0 [facility] Serum or plasma albumin/glob ulin mass ratioOrdered By: Dr. Menendez on 09-14-2022 Albumin/Globulin [Mass ratio] 1.1 {ratio} 0.9-2.4 [facility] Serum or plasma calcium maritza urement (mass/volume)Ordered By: Dr. Menendez on 09-14-2022 Calcium [Mass/Vol] 9.9 mg/dL 8.5-10.1 [facility] Serum or plasma creatinine m easurement (mass/volume)Ordered By: Dr. Menendez on 09-14-2022 Creatinine [Mass/Vol] 1.14 mg/dL 0.70-1.[address] [facility] Comment on above: The validity of the calculated GFR & GFRAA in patients over 70 years has not been determined. Clinical correlation is essential. Serum or plasma urea nitroge n measurement (mass/volume)Ordered By: Dr. Menendez on 09-14-2022 Urea nitrogen [Mass/Vol] 22 mg/dL 7-18 [facility] Thin prep Papanicolaou smear with manual screeningOrdered By: Dr. Menendez on 09-14-2022 Thin prep Papanicolaou smear with manual screening 26 U/L 15-37 [facility] Thin prep Papanicolaou smear with manual screening 11 5-15 [facility] Urine phencyclidine (PCP) de tectionOrdered By: Dr. Menendez on 09-14-2022 Phencyclidine Ql (U) Negative < 25 ng/mL [facility] CBC W Auto Differential pane l (Bld)on 05-23-2022 Basophils (Bld) [#/Vol] 10*3/uL Normal <0.11 [facility] Comment on above: Order Comment: Speci men Type: BLOOD SPECIMEN Ordering Facility: [employer] [facility] Address: [address] [place], [place] [address] Performed By: #### 5 7021-8 #### [facility] CLIA [id number] [address] [place] [id number] [place] Basophils/100 WBC (Bld) 0.3 % Normal C [facility] Comment on above: Order Comment: Speci men Type: BLOOD SPECIMEN Ordering Facility: [facility] Address: [address] [place] [address] Performed By: #### 5 7021-8 #### [facility] CLIA [id number] [address] [place] [address] [place] Differential cell count method Nom (Bld) Auto Normal [facility] Comment on above: Order Comment: Speci men Type: BLOOD SPECIMEN Ordering Facility: [facility] Address: [address] [place] [address] Performed By: #### 5 7021-8 #### [facility] CLIA [id number] [address] [place] [address] [place] Eosinophils (Bld) [#/Vol] 0.25 10*3/uL Normal <0.46 [facility] Comment on above: Order Comment: Speci men Type: BLOOD SPECIMEN Ordering Facility: [facility] Address: [address] [place] [address] Performed By: #### 5 7021-8 #### [facility] CLIA [id number] [address] [place] [address] [place] Eosinophils/100 WBC (Bld) 3.6 % Normal [facility] Comment on above: Order Comment: Speci men Type: BLOOD SPECIMEN Ordering Facility: [facility] [employer] [facility] Address: [address] [place] [address] Performed By: #### 5 7021-8 #### [facility] CLIA [id number] [address] [place] [address] [place] Erythrocyte distribution width (RBC) [Ratio] 12.9 % Normal 11.5-15.0 [facility] Comment on above: Order Comment: Speci men Type: BLOOD SPECIMEN Ordering Facility: [facility] [employer] [facility] Address: [address] [place] [address] Performed By: #### 5 7021-8 #### [facility] CLIA [id number] [address] [place] [address] [place] Hematocrit (Bld) [Volume fraction] 40.1 % Normal 39.0-51.0 [facility] Comment on above: Order Comment: Speci men Type: BLOOD SPECIMEN Ordering Facility: [facility] [employer] [facility] Address: [address] [place] [address] Performed By: #### 5 7021-8 #### [facility] CLIA [id number] [address] [place] [address] [place] Hemoglobin (Bld) [Mass/Vol] 13.7 g/dL Normal 13.0-17.0 [facility] Comment on above: Order Comment: Speci men Type: BLOOD SPECIMEN Ordering Facility: [facility] Address: [address] [place], [place] [address] Performed By: #### 5 7021-8 #### [facility] CLIA [id number] [address] [place] [address] [place] Immature granulocytes (Bld) [#/Vol] 10*3/uL Normal <0.10 [facility] Comment on above: Order Comment: Speci men Type: BLOOD SPECIMEN Ordering Facility: [facility] [employer] [facility] Address: [address] [place], [place] [address] Performed By: #### 5 7021-8 #### [facility] CLIA [id number] [address] [place] [address] [place] Immature granulocytes/100 WBC (Bld) 0.1 % Normal [facility] Comment on above: Order Comment: Speci men Type: BLOOD SPECIMEN Ordering Facility: [facility] Address: [address] [place] [address] Performed By: #### 5 7021-8 #### [facility] CLIA [id number] [address] [place], [place] [address] [place] Lymphocytes (Bld) [#/Vol] 2.08 10*3/uL Normal 1.00-4.00 [facility] Comment on above: Order Comment: Speci men Type: BLOOD SPECIMEN Ordering Facility: [facility] [employer] [facility] Address: [address] [place] [address] Performed By: #### 5 7021-8 #### [facility] CLIA [id number] [address] [place] [address] [place] Lymphocytes/100 WBC (Bld) 29.9 % Normal [facility] Comment on above: Order Comment: Speci men Type: BLOOD SPECIMEN Ordering Facility: [facility] [employer] [facility] Address: [address] [place] [address] Performed By: #### 5 7021-8 #### [facility] CLIA [id number] [address] [place] [address] [place] MCH (RBC) [Entitic mass] 28.7 pg Normal 26.0-34.0 [facility] Comment on above: Order Comment: Speci men Type: BLOOD SPECIMEN Ordering Facility: [facility] [employer] [facility] Address: [address] [place] [address] Performed By: #### 5 7021-8 #### [facility] CLIA [id number] [address] [place] [address] [place] MCHC (RBC) [Mass/Vol] 34.2 g/dL Normal 30.5-36.[address] [facility] Comment on above: Order Comment: Speci men Type: BLOOD SPECIMEN Ordering Facility: [facility] [employer] [facility] Address: [address] [place] [address] Performed By: #### 5 7021-8 #### [facility] CLIA [id number] [address] [place] [address] [place] MCV (RBC) [Entitic vol] 83.9 fL Normal 80.0-100.0 C [facility] Comment on above: Order Comment: Speci men Type: BLOOD SPECIMEN Ordering Facility: [facility] [employer] [facility] Address: [address] [place] [address] Performed By: #### 5 7021-8 #### [facility] CLIA [id number] [address] [address] [place] Monocytes (Bld) [#/Vol] 0.41 10*3/uL Normal <0.87 [facility] Comment on above: Order Comment: Speci men Type: BLOOD SPECIMEN Ordering Facility: [facility] [employer] [facility] Address: [address] [place] [address] Performed By: #### 5 7021-8 #### [facility] CLIA [id number] [address] [address] [place] Monocytes/100 WBC (Bld) 5.9 % Normal [facility] Comment on above: Order Comment: Speci men Type: BLOOD SPECIMEN Ordering Facility: [facility] [employer] [facility] Address: [address] [place] [address] Performed By: #### 5 7021-8 #### [facility] CLIA [id number] [address] [place] [place] [id number] [place] Neutrophils (Bld) [#/Vol] 4.19 10*3/uL Normal 1.45-7.50 [facility] Comment on above: Order Comment: Speci men Type: BLOOD SPECIMEN Ordering Facility: [facility] [employer] [facility] Address: [address] [place] [address] Performed By: #### 5 7021-8 #### [facility] CLIA [id number] [address] [address] [place] Neutrophils/100 WBC (Bld) 60.2 % Normal [facility] Comment on above: Order Comment: Speci men Type: BLOOD SPECIMEN Ordering Facility: [facility] [employer] [facility] Address: [address] [place] [address] Performed By: #### 5 7021-8 #### [facility] CLIA [id number] [address] [address] [place] Nucleated RBC (Bld) [#/Vol] 10*3/uL Normal <0.01 [facility] Comment on above: Order Comment: Speci men Type: BLOOD SPECIMEN Ordering Facility: [facility] [employer] [facility] Address: [address] [place] [address] Performed By: #### 5 7021-8 #### [facility] CLIA [id number] [address] [place], [place] [address] [place] Nucleated RBC/100 WBC (Bld) [Ratio] 0.0 /100 WBC Normal [facility] Comment on above: Order Comment: Speci men Type: BLOOD SPECIMEN Ordering Facility: [facility] [employer] [facility] Address: [address] [place] [address] Performed By: #### 5 7021-8 #### [facility] CLIA [id number] [address] [place] [address] [place] Platelet mean volume (Bld) [Entitic vol] 9.0 fL Normal 9.0-12.7 [facility] Comment on above: Order Comment: Speci men Type: BLOOD SPECIMEN Ordering Facility: [facility] [employer] [facility] Address: [address] [place] [address] Performed By: #### 5 7021-8 #### [facility] CLIA [id number] [address] [place], [place] [address] [place] Platelets (Bld) [#/Vol] 334 10*3/uL Normal 150-400 [facility] Comment on above: Order Comment: Speci men Type: BLOOD SPECIMEN Ordering Facility: [facility] Address: [address] [place] [address] Performed By: #### 5 7021-8 #### [facility] CLIA [id number] [address] [address] [place] RBC (Bld) [#/Vol] 4.78 10*6/uL Normal 4.20-6.00 [facility] Comment on above: Order Comment: Speci men Type: BLOOD SPECIMEN Ordering Facility: [facility] [employer] [facility] Address: [address] [place] [address] Performed By: #### 5 7021-8 #### [facility] CLIA [id number] [address] [address] [place] WBC (Bld) [#/Vol] 6.96 10*3/uL Normal 3.70-11.00 [facility] Comment on above: Order Comment: Speci men Type: BLOOD SPECIMEN [facility] Address: [address] [place] [address] Performed By: #### 5 7021-8 #### [facility] CLIA [id number] [facility] [address] [address] [place] Comprehensive metabolic 2000 panelon 05-23-2022 Albumin [Mass/Vol] 4.5 g/dL Normal 3.9-4.9 [facility] Comment on above: Order Comment: Speci men Type: BLOOD SPECIMEN Ordering Facility: [facility] [employer] [facility] Address: [address] [place] [address] Performed By: #### 3 024-7, 88050-3, 3016-3 #### [facility] CLIA [id number] [address] [place] [address] [place] ALP [Catalytic activity/Vol] 78 U/L Normal 38-113 [facility] Comment on above: Order Comment: Speci men Type: BLOOD SPECIMEN Ordering Facility: [facility] Address: [address] [place] [address] Performed By: #### 3 024-7, 64502-0, 3016-3 #### [facility] CLIA [id number] [facility] [address] [address] [place] ALT [Catalytic activity/Vol] 18 U/L Normal 10-54 [facility] Comment on above: Order Comment: Speci men Type: BLOOD SPECIMEN Ordering Facility: [facility] Address: [address] [place] [address] Performed By: #### 3 024-7, 70895-0, 3016-3 #### [facility] CLIA [id number] [address] [address] [place] Anion gap [Moles/Vol] 8 mmol/L Low 9-[address] [facility] Comment on above: Order Comment: Speci men Type: BLOOD SPECIMEN Ordering Facility: [facility] [employer] [facility] Address: [address] [place] [address] Performed By: #### 3 024-7, 28456-5, 3 #### [facility] CLIA [id number] [address] [place] [id number] [place] AST [Catalytic activity/Vol] 23 U/L Normal 14-40 [facility] Comment on above: Order Comment: Speci men Type: BLOOD SPECIMEN Ordering Facility: [facility] [employer] [facility] Address: [address] [place] [address] Performed By: #### 3 024-7, 79233-0, 3 #### [facility] CLIA [id number] [address] [place] [address] [place] Bilirubin [Mass/Vol] 0.5 mg/dL Normal 0.2-1.3 [facility] Comment on above: Order Comment: Speci men Type: BLOOD SPECIMEN Ordering Facility: [facility] [employer] [facility] Address: [address] [place] [address] Performed By: #### 3 024-7, 12692-1, 3 #### [facility] CLIA [id number] [address] [address] [place] Calcium [Mass/Vol] 9.9 mg/dL Normal 8.5-10.2 [facility] Comment on above: Order Comment: Speci men Type: BLOOD SPECIMEN Ordering Facility: A [employer] [facility] Address: [address] [place] [address] Performed By: #### 3 024-7, 42431-4, 3 #### [facility] CLIA [id number] [address] [address] [place] Chloride [Moles/Vol] 105 mmol/L Normal 97-105 [facility] Comment on above: Order Comment: Speci men Type: BLOOD SPECIMEN Ordering Facility: [facility] [employer] [facility] Address: [address] [place] [address] Performed By: #### 3 024-7, 10711-0, 3016-3 #### [facility] CLIA [id number] [address] [place] [address] [place] CO2 [Moles/Vol] 27 mmol/L Normal 22-30 [facility] Comment on above: Order Comment: Speci men Type: BLOOD SPECIMEN Ordering Facility: A [employer] [facility] Address: [address] [place], [place] [phone] Performed By: #### 3 024-7, 79716-4, 3 #### [facility] CLIA [id number] [address] [place] [address] [place] Creatinine [Mass/Vol] 0.97 mg/dL Normal 0.73-1.[address] [facility] Comment on above: Order Comment: Speci men Type: BLOOD SPECIMEN Ordering Facility: A [employer] [facility] Address: [address] [place] [address] Performed By: #### 3 024-7, 95989-0, 3 #### [facility] CLIA [id number] [address] [place] [address] [place] ESTIMATED GLOMERULAR FILTRATION RATE 110 mL/min/1.73m??? Normal >=60 [facility] Comment on above: Order Comment: Speci men Type: BLOOD SPECIMEN Ordering Facility: [employer] [facility] Address: [address] [place], [place] [phone] Result Comment: Re mated Glomerular Filtration Rate [...] actual GFR. Performed By: #### 3 024-7, 36395-9, 3016-3 #### [facility] CLIA [id number] [address] [address] [place] Glucose [Mass/Vol] 90 mg/dL Normal 74-99 [facility] Comment on above: Order Comment: Selene castano Type: BLOOD SPECIMEN Ordering Facility: [employer] [facility] Address: [address] [place], [place] [phone] Result Comment: The [place] Diabetes Association (ADA) provides guidance for cutoff [...] Standards of Medical Care in Diabetes 2016, [place] [employer] Association. Diabetes Care. 2016.39(Suppl 1). Performed By: #### 3 024-7, 16509-8, 6-3 #### [facility] CLIA [id number] [address] [address] [place] Potassium [Moles/Vol] 4.4 mmol/L Normal 3.7-5.[address] [facility] Comment on above: Order Comment: Selene castano Type: BLOOD SPECIMEN Ordering Facility: A [employer] [facility] Address: [address] [place] [address] Performed By: #### 3 024-7, 04408-1, 6-3 #### [facility] CLIA [id number] [address] [address] [place] Protein [Mass/Vol] 7.2 g/dL Normal 6.3-8.0 [facility] Comment on above: Order Comment: Selene castano Type: BLOOD SPECIMEN Ordering Facility: A [employer] [facility] Address: [address] [place] [address] Performed By: #### 3 024-7, 91830-1, 6-3 #### [facility] CLIA [id number] [address] [place] [address] [place] Sodium [Moles/Vol] 140 mmol/L Normal 136-144 [facility] Comment on above: Order Comment: Selene castano Type: BLOOD SPECIMEN Ordering Facility: A [facility] [employer] [facility] Address: [address] [place] [address] Performed By: #### 3 024-7, 85821-6, 3016-3 #### [facility] CLIA [id number] [address] [place] [address] [place] Urea nitrogen [Mass/Vol] 21 mg/dL Normal 9-24 [facility] Comment on above: Order Comment: Selene castano Type: BLOOD SPECIMEN Ordering Facility: [facility] [employer] [facility] Address: [address] [place] [address] Performed By: #### 3 024-7, 39889-9, 3016-3 #### [facility] CLIA [id number] [address] [place] [address] [place] HAV IgM Ser Qlon 05-23-2022 HAV IgM Ql (S) Negative Normal Negative [facility] Comment on above: Order Comment: Selene castano Type: BLOOD SPECIMEN Ordering Facility: [facility] [employer] [facility] Address: [address] [place] [address] Result Comment: No e vidence of recent infection with Hepatitis A virus. Performed By: #### 5 195-3, 69536-4, 71930-6, 51106-4 #### [facility] CLIA [id number] [address] [place] [address] [place] HBV surface Ab Ql (S)on HBV surface Ab Qn (S) <8.00 Low >=12.[address] [facility] Comment on above: Order Comment: Selene castano Type: BLOOD SPECIMEN Ordering Facility: [facility] [employer] [facility] Address: [address] [place], [place] [phone] Performed By: #### 5 195-3, 63068-8, 63365-6, 50928-3 #### [facility] CLIA [id number] [facility] [place] [address] [place] HBV surface Ab Ser Qlon 0 HBV surface Ab Ql (S) Negative Abnormal Positive [facility] Comment on above: Order Comment: Selene eyad Type: BLOOD SPECIMEN Ordering Facility: [facility] [employer] [facility] Address: [address] [place] [address] Result Comment: No e vidence of antibodies to Hepatitis B surface antigen. Performed By: #### 5 195-3, 24240-9, 66650-9, 79120-5 #### [facility] CLIA [id number] 9500 [place] [address] [place] HBV surface Ag Ser Qlon 03- HBV surface Ag Ql (S) Negative Normal Negative [facility] Comment on above: Order Comment: [facility] Type: BLOOD SPECIMEN Ordering Facility: [facility] [employer] Address: [address] [place] [address] Performed By: #### 5 195-3, 17621-7, 58180-2, 23311-3 #### [facility] CLIA [id number] [address] [place] [address] [place] HCV Ab Ser Qlon 05-23-2022 HCV Ab Ql (S) Negative Normal Negative [facility] Comment on above: Order Comment: [facility] Type: BLOOD SPECIMENOrdering Facility: A [employer] Address: [address] [place] [address] Result Comment: The result suggests no evidence of active infection with Hepatitis C virus. Should recent infection be suspected, repeat testing may be considered 4-6 weeks after this draw. Performed By: #### 1 6128-1 ####[facility] [id number] [place] [address] [place] HCV RNA SerPl LUNA+probe-[facility] on 05-23-2022 HCV RNA LUNA+probe Qn Not detected Normal HCV RNA not detected by PCR. [facility] Comment on above: Order Comment: [facility] Type: BLOOD SPECIMENOrdering Facility: A [facility] Address: [address] [place] [address] Performed By: #### 1 1011-4 ####[facility] [id number] [place] [address] [facility] [place] HIV 1+2 Ab IA Qlon 3 HIV 1 and 2 Ab IA.rapid Nom Normal [facility] Comment on above: Order Comment: Speci men Type: BLOOD SPECIMEN Ordering Facility: A [facility] Address: [address] [place] [address] Result Comment: Test not indicated. Performed By: #### 5 195-3, 48080-4, 33237-0, 92959-4 #### [facility] CLIA [id number] [address] [place] HIV 1+2 Ab+HIV1 p24 Ag IA Ql Non-Reactive Normal Nonreactive [facility] Comment on above: Order Comment: Speci men Type: BLOOD SPECIMEN Ordering Facility: A [facility] Address: [address] [place] [address] Performed By: #### 5 195-3, 96390-3, 87774-6, 18554-2 #### [facility] CLIA [id number] [address] [place] [address] [place] HIVINT Normal [facility] Comment on above: Order Comment: Speci men Type: BLOOD SPECIMEN Ordering Facility: A [facility] Address: [address] [place] [address] Result Comment: No e vidence of HIV-1 or HIV-2 infection. Should recent infection be suspected, repeat testing may be considered 2-3 weeks after this draw. [place] Rev. Code 3701.243(E): This information has been [...] or diagnoses. Performed By: #### 5 195-3, 05143-3, 23227-4, 46372-5 #### [facility] CLIA [id number] [address] [place] [address] [place] T4 Free SerPl-mCncon 023 Free T4 [Mass/Vol] 1.4 ng/dL Normal 0.9-1.7 [facility] Comment on above: Order Comment: Speci men Type: BLOOD SPECIMENOrdering Facility: A [facility] [employer] [facility] Address: [address] [place] [address] Performed By: #### 3 024-7, 35901-5, 3016-3 ####[facility] [id number] [place] [address] [place] TSH SerPl-aCncon 05-23-2022 TSH Qn 0.405 m[IU]/L Normal 0.270-4.200 [facility] Comment on above: Order Comment: Speci men Type: BLOOD SPECIMENOrdering Facility: A [employer] [facility] Address: [address] [place] [address] Performed By: #### 3 024-7, 50999-7, 3016-3 ####[facility] [id number] [place] [address] [place] Alcohol, Blood (Medical)-Ser umon 05-02-2022 SERUM ETOH < 3.0 Normal [facility] Comment on above: Result Comment: The serum:whole blood ethanol ratio is approximately 1.14 and varies slightly with hematocrit. Medical Alcohol reference interval and critical value in non-tolerant individuals; 50 - 100 Impairment 100 Intoxication 100 - 250 Severe Poisoning 250 - 400 Deep/possible fatal coma Performed By: #### L 501.3620, L100.0100, L500.2500 #### [facility] [address] [place], [place], [address] Basic Metabolic Profile (BMP )on 05-02-2022 BUN/CRE 26.4 RATIO High 10-20 [facility] Comment on above: Performed By: #### L 501.3620, L100.0100, L500.2500 #### [facility] [address] [place], [address] CA,Total 7.8 mg/dL Low 8.5-10.1 [facility] Comment on above: Performed By: #### L 501.3620, L100.0100, L500.2500 #### [facility] [address] [place], [address] Chloride [Moles/Vol] 114 mmol/L High 98-107 [facility] Comment on above: Performed By: #### L 501.3620, L100.0100, L500.2500 #### [facility] [address] [place], [address] CO2 [Moles/Vol] 27.0 mmol/L Normal 21.0-32.0 [facility] Comment on above: Performed By: #### L 501.3620, L100.0100, L500.2500 #### [facility] [address] [place], [address] Creatinine [Mass/Vol] 1.29 mg/dL Normal 0.70-1.[address] [facility] Comment on above: Result Comment: The validity of the calculated GFR GFRAA in patients over 70 years has not been determined. Clinical correlation is essential. Performed By: #### L 501.3620, L100.0100, L500.2500 #### [facility] [address] [place], [address] ECRCL 91.86 ml/min Normal [facility] Comment on above: Performed By: #### L 501.3620, L100.0100, L500.2500 #### [facility] [address] [place], [address] EST GFR - AA 86 mL/min Normal >60 [facility] Comment on above: Result Comment: Afri can [place] GFR Calc Performed By: #### L 501.3620, L100.0100, L500.2500 #### [facility] [address] [place], [address] GAP 4 Low 5-15 [facility] Comment on above: Performed By: #### L 501.3620, L100.0100, L500.2500 #### [facility] [address] [place], [address] GFR/1.73 sq M.predicted among non-blacks MDRD (S/P/Bld) [Vol rate/Area] 71 mL/min/{1.73_m2} Normal >60 [facility] Comment on above: Result Comment: Non- GFR Calc Performed By: #### L 501.3620, L100.0100, L500.2500 #### [facility] [address] [place], [address] Glucose [Mass/Vol] 104 mg/dL Normal 74-106 [facility] Comment on above: Result Comment: Fast ing Glucose result from 100 to 125 mg/dL suggests IMPAIRED HOMEOSTASIS per A.D.A. criteria. Performed By: #### L 501.3620, L100.0100, L500.2500 #### [facility] [address] [place], [address] Potassium [Moles/Vol] 4.0 mmol/L Normal 3.5-5.[address] [facility] Comment on above: Performed By: #### L 501.3620, L100.0100, L500.2500 #### [facility] [address] [place], [address] Sodium [Moles/Vol] 145 mmol/L Normal 136-145 [facility] Comment on above: Performed By: #### L 501.3620, L100.0100, L500.2500 #### [facility] [address] [place], [address] Urea nitrogen [Mass/Vol] 34 mg/dL High 7-18 [facility] Comment on above: Performed By: #### L 501.3620, L100.0100, L500.2500 #### [facility] [address] [place], [address] CBC W/Diff, Automatedon 02-0 PATH REV Reviewed Normal [facility] Comment on above: Result Comment: Neut rophilic leukocytosis. Clinical correlation necessary. Oliverio Gibbons M.D. 05/02/22 AMENDED REPORT 05/02/22 1409 PATH REV previously reported as: July Performed By: #### L 501.3620, L100.0100, L500.2500 #### [facility] [address] [place], [address] Chest 1 View (Portable)on Chest 1 View (Portable) [facility] Imaging Services [address] [place] [address] Chest 1 View (Portable) MR#: [id number] Acct: [id number] Name: BRYAN LUNDBERG Rep #: [id number] : 1995 M 26 From: Bernard york MD PCP: EVELYN Phan Status: REG ER Study: Chest 1 View (Portable) Date of Exam: 05/01/22 Exam# [id number] Ordering Dr: Akash Saucedo DO EXAM: XR CHEST, 1 VIEW CLINICAL INDICATION: Altered mental TECHNIQUE: Frontal view of the chest. This report was created using [employer] report generation technology. COMPARISON: Chest radiograph report [...] CC: EVELYN Nicholson; Dr. Akash Saucedo DO Instructor Of Spanish: Signed Normal [facility] Emergency Department Summary on 05-02-2022 Emergency Department Summary [facility] Medical Records Department [address] [place] [address] Emergency Department Summary 05/01/22 MR#: [id number] Acct: [id number] Name: BRYAN LUNDBERG Rep #: [id number] : 1995 26 From: Akash Saucedo DO [...] keep his ear. Patient request detox today [facility] Medical History Asthma Tobacco abuse [...] his counselo (more content not included)... Normal [facility] Urinalysis, Completeon 05-02 AMORPHOUS 1+ Normal [facility] Comment on above: Order Comment: CLEAN CATCH Performed By: #### L 500.4050, L100.0100 #### [facility] [address] [place], [address] BACTERIA 1+ /hpf Normal None Seen [facility] Comment on above: Order Comment: CLEAN CATCH Performed By: #### L 500.4050, L100.0100 #### [facility] [address] [place], [address] RBC 5-10 SEEN Normal 0-5 [facility] Comment on above: Order Comment: CLEAN CATCH Performed By: #### L 500.4050, L100.0100 #### [facility] [address] [place], [address] WBC 5-10 SEEN Normal 0-5 [facility] Comment on above: Order Comment: CLEAN CATCH Performed By: #### L 500.4050, L100.0100 #### [facility] [address] [place], [address] EPI,SQUAMOUS 0 SEEN Normal 0-5 [facility] Comment on above: Order Comment: CLEAN CATCH Performed By: #### L 500.4050, L100.0100 #### [facility] [address] [place], [address] Mucus Ql (Urine sed) 0 SEEN Normal [facility] Comment on above: Order Comment: CLEAN CATCH Performed By: #### L 500.4050, L100.0100 #### [facility] [address] [place], [address] Urine Drug Screen (VISTA)on 05-02-2022 AMPHETAMINES Positive Abnormal <1000 ng/mL [facility] Comment on above: Performed By: #### L 501.3620, L100.0100, L500.2500 #### [facility] [address] [place], [address] BARBITIURATES Negative Normal < 200 ng/mL [facility] Comment on above: Performed By: #### L 501.3620, L100.0100, L500.2500 #### [facility] [address] [place], [address] BENZODIAZIPINE Negative Normal < 200 ng/mL [facility] Comment on above: Performed By: #### L 501.3620, L100.0100, L500.2500 #### [facility] [address] [place], [address] COCAINE Negative Normal < 300 ng/mL [facility] Comment on above: Performed By: #### L 501.3620, L100.0100, L500.2500 #### [facility] [address] [place], [address] ECSTACY Negative Normal < 500 ng/mL [facility] Comment on above: Performed By: #### L 501.3620, L100.0100, L500.2500 #### [facility] [address] [place], [address] METHADONE Negative Normal < 300 ng/mL [facility] Comment on above: Performed By: #### L 501.3620, L100.0100, L500.2500 #### [facility] [address] [place], [address] OPIATES Negative Normal < 300 ng/mL [facility] Comment on above: Performed By: #### L 501.3620, L100.0100, L500.2500 #### [facility] [address] [place], [address] PCP Negative Normal < 25 ng/mL [facility] Comment on above: Performed By: #### L 501.3620, L100.0100, L500.2500 #### [facility] [address] [place], [address] THC Positive Abnormal < 50 ng/mL [facility] Comment on above: Performed By: #### L 501.3620, L100.0100, L500.2500 #### [facility] [address] [place], [address] VISTA UDS PH 6 Normal [facility] Comment on above: Performed By: #### L 501.3620, L100.0100, L500.2500 #### [facility] [address] [place], [address] Absolute lymphocyte countOrd ered By: Dr. Saucedo on 05-01-2022 Lymphocytes Auto (Unsp spec) [#/Vol] 1.68 10*3/uL 0.83-4.51 [facility] Amorphous sediment detection in urine sediment by light microscopyOrdered By: Dr. Saucedo on 05-01-2022 Amorphous sediment LM Ql (Urine sed) 1+ [facility] Basophil percentageOrdered B y: Dr. Saucedo on 05-01-2022 Basophil percentage 5-10 SEEN /hpf 0-5 [facility] Basophils/100 WBC (Bld) 0.2 % 0-1 [facility] Chloride [Moles/Vol] 114 mmol/L 98-107 [facility] Eosinophils/100 WBC (Bld) 0.0 % 0-5 [facility] Glucose [Mass/Vol] 104 mg/dL 74-106 [facility] Comment on above: Fasting Glucose resu lt from 100 to 125 mg/dL suggests IMPAIRED HOMEOSTASIS per A.D.A. criteria. Neutrophils (Bld) [#/Vol] 20.3 10*3/uL 2.0-7.7 [facility] Neutrophils/100 WBC (Bld) 83.1 % 47-70 [facility] Potassium [Moles/Vol] 4.0 mmol/L 3.5-5.[address] [facility] Sodium [Moles/Vol] 145 mmol/L 136-145 [facility] WBC (Bld) [#/Vol] 24.4 10*3/uL 4.4-11.0 [facility] Bilirubin Test strip Ql (U)O rdered By: Dr. Saucedo on 05-01-2022 Bilirubin Ql (U) Negative Negative [facility] Blood erythrocytes count (nu mber/volume)Ordered By: Dr. Saucedo on 05-01-2022 RBC (Bld) [#/Vol] 4.20 10*6/uL 4.6-6.2 [facility] Blood hemoglobin measurement (mass/volume)Ordered By: Dr. Saucedo on 05-01-2022 Hemoglobin (Bld) [Mass/Vol] 12.2 g/dL 13.0-16.5 [facility] Blood lymphocytes/100 leukoc ytesOrdered By: Dr. Saucedo on 05-01-2022 Lymphocytes/100 WBC (Bld) 6.9 % 19-41 [facility] Blood monocytes/100 leukocyt esOrdered By: Dr. Saucedo on 05-01-2022 Monocytes/100 WBC (Bld) 8.2 % 0-10 [facility] Blood platelet mean volumeOr dered By: Dr. Saucedo on 05-01-2022 Platelet mean volume (Bld) [Entitic vol] 8.5 fL 6.2-12.0 [facility] Determination of erythrocyte mean corpuscular volume (MCV)Ordered By: Dr. Saucedo on 05-01-2022 MCV (RBC) [Entitic vol] 84.5 fL 80-94 [facility] Hematocrit Auto (Bld) [Volum e fraction]Ordered By: Dr. Saucedo on 05-01-2022 Hematocrit (Bld) [Volume fraction] 35.5 % 40-54 [facility] Ketones Test strip Ql (U)Ord ered By: Dr. Saucedo on 05-01-2022 Ketones Ql (U) 5 mg/dl Negative [facility] - Chemistry and C hemistry - challengeOrdered By: Dr. Saucedo on 05-01-2022 CO2 [Moles/Vol] 27.0 mmol/L 21.0-32.0 [facility] Urea nitrogen/Creatinine [Mass ratio] 26.4 mg/mg 10-20 [facility] - Drug toxicology Ordered By: Dr. Saucedo on 05-01-2022 Amphetamines Ql (U) Positive <1000 ng/mL [facility] Benzodiazepines Ql (U) Negative < 200 ng/mL [facility] Cannabinoids Screen Ql (U) Positive < 50 ng/mL [facility] Cocaine Ql (U) Negative < 300 ng/mL [facility] Opiates Ql (U) Negative < 300 ng/mL [facility] - Hematology and Cell countsOrdered By: Dr. Saucedo on 05-01-2022 Erythrocyte distribution width (RBC) [Entitic vol] 40.4 fL 35.1-43.9 [facility] Erythrocyte distribution width (RBC) [Ratio] 13.1 % 11.6-14.6 [facility] Immature granulocytes/100 WBC (Bld) 1.600 % 0.0-0.9 [facility] Comment on above: IG% - Immature Granu locytes (promyelocytes, myelocytes and metamyelocytes) > 1% indicates that a LEFT SHIFT is Present. MCH (RBC) [Entitic mass] 29.0 pg 27.0-32.0 [facility] Nucleated RBC/100 WBC (Bld) [Ratio] 0 % 0-5 [facility] MCHC Auto (RBC) [Mass/Vol]Or dered By: Dr. Saucedo on 05-01-2022 MCHC (RBC) [Mass/Vol] 34.4 g/dL 32-[address] [facility] Mucus LM Ql (Urine sed)Order ed By: Dr. Saucedo on 05-01-2022 Mucus Ql (Urine sed) 0 SEEN /hpf [facility] Nitrite Test strip Ql (U)Ord ered By: Dr. Saucedo on 05-01-2022 Nitrite Ql (U) Negative Negative [facility] No Panel InformationOrdered By: Dr. Saucedo on 05-01-2022 MDMA (Ecstasy) Screen Negative < 500 ng/mL [facility] Urine Barbiturates Screen Negative < 200 ng/mL [facility] Urine Drug Screen Comment [facility] Comment on above: CONFIRMATORY TESTING FOR [...] Methadone Screen Negative < 300 ng/mL [facility] Estimated Creatinine Clearance Calc 91.86 ml/min [facility] Estimated GFR (MDRD) Amer 86 mL/min >60 [facility] Comment on above: GFR Calc Estimated GFR (MDRD) Non-Af Amer 71 mL/min >60 [facility] Comment on above: Non- GFR Calc Ethyl Alcohol Level < 3.0 mg/dL [facility] Comment on above: The serum:whole bloo d ethanol ratio is approximately 1.14and varies slightly with hematocrit. Medical Alcohol reference interval and critical value innon-tolerant individuals; 50 - 100 Impairment 100 Intoxication 100 - 250 Severe Poisoning 250 - 400 Deep/possible fatal coma Platelets bldOrdered By: Dr. Saucedo on 05-01-2022 Platelets (Bld) [#/Vol] 437 10*3/uL 150-450 [facility] Protein Test strip Ql (U)Ord ered By: Dr. Saucedo on 05-01-2022 Protein Ql (U) 100 mg/dl Negative [facility] Review by pathologistOrdered By: Dr. Saucedo on 05-01-2022 Pathologist review Stephane (Unsp spec) [Interp] May foll [facility] Serum or plasma calcium maritza urement (mass/volume)Ordered By: Dr. Saucedo on 05-01-2022 Calcium [Mass/Vol] 7.8 mg/dL 8.5-10.1 [facility] Serum or plasma creatinine m easurement (mass/volume)Ordered By: Dr. Saucedo on 05-01-2022 Creatinine [Mass/Vol] 1.29 mg/dL 0.70-1.[address] [facility] Comment on above: The validity of the calculated GFR & GFRAA in patients over 70 years has not been determined. Clinical correlation is essential. Serum or plasma urea nitroge n measurement (mass/volume)Ordered By: Dr. Saucedo on 05-01-2022 Urea nitrogen [Mass/Vol] 34 mg/dL 7-18 [facility] Squamous epithelial cells de tection in urine sediment by light microscopyOrdered By: Dr. Saucedo on 05-01-2022 Epithelial cells.squamous LM Ql (Urine sed) 0 SEEN /hpf 0-5 [facility] Thin prep Papanicolaou smear with manual screeningOrdered By: Dr. Saucedo on 05-01-2022 Thin prep Papanicolaou smear with manual screening 4 5-15 [facility] Urine blood detectionOrdered By: Dr. Saucedo on 05-01-2022 RBC Ql (U) 150 /ul Negative [facility] RBC Ql (U) 5-10 SEEN /hpf 0-5 [facility] Urine clarityOrdered By: Dr. Saucedo on 05-01-2022 Clarity (U) Clear Clear [facility] Urine color determinationOrd ered By: Dr. Saucedo on 05-01-2022 Color (U) Yellow Yellow [facility] Urine glucose detectionOrder ed By: Dr. Saucedo on 05-01-2022 Glucose Ql (U) Normal mg/dl Normal [facility] Urine leukocyte esterase det ection by dipstickOrdered By: Dr. Saucedo on 05-01-2022 Leukocyte esterase Test strip Ql (U) Negative Negative [facility] Urine pHOrdered By: Dr. Javan lai on 05-01-2022 pH (U) 6.0 [pH] 5.0 - 8.0 [facility] Urine phencyclidine (PCP) de tectionOrdered By: Dr. Saucedo on 05-01-2022 Phencyclidine Ql (U) Negative < 25 ng/mL [facility] Urine sediment bacteria coun t by microscopy (number/high power field)Ordered By: Dr. Saucedo on 05-01-2022 Bacteria LM.HPF (Urine sed) [#/Area] 1 /[HPF] None Seen [facility] Urine specific gravity measu rementOrdered By: Dr. Saucedo on 05-01-2022 Specific gravity (U) [Rel density] 1.020 1.002-1.030 [facility] Urobilinogen Auto test strip Ql (U)Ordered By: Dr. Saucedo on 05-01-2022 Urobilinogen Ql (U) Normal mg/dl Normal [facility] Absolute lymphocyte countOrd ered By: Dr. Hernandez on 04-25-2022 Lymphocytes Auto (Unsp spec) [#/Vol] 3.55 10*3/uL 0.83-4.51 [facility] Basophil percentageOrdered B y: Dr. Hernandez on 04-25-2022 Basophils/100 WBC (Bld) 0.5 % 0-1 [facility] Bilirubin [Mass/Vol] 1.30 mg/dL 0.20-1.00 [facility] Comment on above: For patients on eltr ombopag therapy, use of Dimension Raymond TBIL is not recommended. Chloride [Moles/Vol] 96 mmol/L 98-107 [facility] Eosinophils/100 WBC (Bld) 1.0 % 0-5 [facility] Glucose [Mass/Vol] 100 mg/dL 74-106 [facility] Comment on above: Fasting Glucose resu lt from 100 to 125 mg/dL suggests IMPAIRED HOMEOSTASIS per A.D.A. criteria. Neutrophils (Bld) [#/Vol] 5.1 10*3/uL 2.0-7.7 [facility] Neutrophils/100 WBC (Bld) 52.5 % 47-70 [facility] Potassium [Moles/Vol] 3.6 mmol/L 3.5-5.[address] [facility] Protein [Mass/Vol] 7.3 g/dL 6.4-8.2 [facility] Sodium [Moles/Vol] 131 mmol/L 136-145 [facility] WBC (Bld) [#/Vol] 9.7 10*3/uL 4.4-11.0 [facility] Blood erythrocytes count (nu mber/volume)Ordered By: Dr. Hernandez on 04-25-2022 RBC (Bld) [#/Vol] 5.21 10*6/uL 4.6-6.2 [facility] Blood hemoglobin measurement (mass/volume)Ordered By: Dr. Hernandez on 04-25-2022 Hemoglobin (Bld) [Mass/Vol] 14.8 g/dL 13.0-16.5 [facility] Blood lymphocytes/100 leukoc ytesOrdered By: Dr. Hernandez on 04-25-2022 Lymphocytes/100 WBC (Bld) 36.6 % 19-41 [facility] Blood monocytes/100 leukocyt esOrdered By: Dr. Hernandez on 04-25-2022 Monocytes/100 WBC (Bld) 9.0 % 0-10 [facility] Blood platelet mean volumeOr dered By: Dr. Hernandez on 04-25-2022 Platelet mean volume (Bld) [Entitic vol] 8.4 fL 6.2-12.0 [facility] CBC W/Diff, Automatedon Absolute Lymph 3.55 X10 3/uL Normal 0.83-4.51 [facility] Comment on above: Performed By: #### L 500.4050, L100.0100 #### [facility] [address] [place], [address] Absolute Neut 5.1 X10 3/uL Normal 2.0-7.7 [facility] Comment on above: Performed By: #### L 500.4050, L100.0100 #### [facility] [address] [place], [address] Basophils/100 WBC (Bld) 0.5 % Normal 0-1 [facility] Comment on above: Performed By: #### L [id number], L100.0100 #### [facility] [address] [place], [address] Eosinophils/100 WBC (Bld) 1.0 % Normal 0-5 [facility] Comment on above: Performed By: #### L [id number], L100.0100 #### [facility] [address] [place], [address] Erythrocyte distribution width (RBC) [Ratio] 12.4 % Normal 11.6-14.6 [facility] Comment on above: Performed By: #### L 500.4050, L100.0100 #### [facility] [address] [place], [address] Hematocrit (Bld) [Volume fraction] 43.0 % Normal 40-54 [facility] Comment on above: Performed By: #### L [id number], L100.0100 #### [facility] [address] [place], [address] Hemoglobin (Bld) [Mass/Vol] 14.8 g/dL Normal 13.0-16.5 [facility] Comment on above: Performed By: #### L 500.4050, L100.0100 #### [facility] [address] [place], [address] IG% 0.400 Normal 0.0-0.9 [facility] Comment on above: Result Comment: IG% - Immature Granulocytes (promyelocytes, myelocytes and metamyelocytes) > 1% indicates that a LEFT SHIFT is Present. Performed By: #### L 500.4050, L100.0100 #### [facility] [address] [place], [address] Lymphocytes/100 WBC (Bld) 36.6 % Normal 19-41 [facility] Comment on above: Performed By: #### L 500.4050, L100.0100 #### [facility] [address] [place], [address] MCH (RBC) [Entitic mass] 28.4 pg Normal 27.0-32.0 [facility] Comment on above: Performed By: #### L 500.4050, L100.0100 #### [facility] [address] [place], [address] MCHC (RBC) [Mass/Vol] 34.4 g/dL Normal 32-[address] [facility] Comment on above: Performed By: #### L 500.4050, L100.0100 #### [facility] [address] [place], [address] MCV (RBC) [Entitic vol] 82.5 fL Normal 80-94 [facility] Comment on above: Performed By: #### L [id number], L100.0100 #### [facility] [address] [place], [address] Monocytes/100 WBC (Bld) 9.0 % Normal 0-10 [facility] Comment on above: Performed By: #### L 500.4050, L100.0100 #### [facility] [address] [place], [address] Neutrophils/100 WBC (Bld) 52.5 % Normal 47-70 [facility] Comment on above: Performed By: #### L 500.4050, L100.0100 #### [facility] [address] [place], [address] Nucleated RBC (Bld) [#/Vol] 0 10*3/uL Normal 0-5 [facility] Comment on above: Performed By: #### L 500.4050, L100.0100 #### [facility] [address] [place], [address] Platelet mean volume (Bld) [Entitic vol] 8.4 fL Normal 6.2-12.0 [facility] Comment on above: Performed By: #### L 500.4050, L100.0100 #### [facility] [address] [place], [address] Platelets (Bld) [#/Vol] 432 10*3/uL Normal 150-450 [facility] Comment on above: Performed By: #### L 500.4050, L100.0100 #### [facility] [address] [place], [address] RBC (Bld) [#/Vol] 5.21 10*6/uL Normal 4.6-6.2 [facility] Comment on above: Performed By: #### L 500.4050, L100.0100 #### [facility] [address] [place], [address] RDW SD 37.7 fl Normal 35.1-43.9 [facility] Comment on above: Performed By: #### L 500.4050, L100.0100 #### [facility] [address] [place], [address] WBC (Bld) [#/Vol] 9.7 10*3/uL Normal 4.4-11.0 [facility] Comment on above: Performed By: #### L 500.4050, L100.0100 #### [facility] [address] [place], [address] Comprehensive Metabolic Prof ilon 04-25-2022 Albumin [Mass/Vol] 3.9 g/dL Normal 3.2-5.0 [facility] Comment on above: Performed By: #### L 500.4050, L100.0100 #### [facility] [address] [place], [address] Albumin/Globulin [Mass ratio] 1.1 {ratio} Normal 0.9-2.4 [facility] Comment on above: Performed By: #### L 500.4050, L100.0100 #### [facility] [address] [place], [address] ALK P 83 U/L Normal 45-117 [facility] Comment on above: Performed By: #### L 500.4050, L100.0100 #### [facility] [address] [place], [address] ALT [Catalytic activity/Vol] 18 U/L Normal 16-61 [facility] Comment on above: Performed By: #### L 500.4050, L100.0100 #### [facility] [address] [place], [address] AST [Catalytic activity/Vol] 11 U/L Low 15-37 [facility] Comment on above: Performed By: #### L 500.4050, L100.0100 #### [facility] [address] [place], [address] Bilirubin [Mass/Vol] 1.30 mg/dL High 0.20-1.00 [facility] Comment on above: Result Comment: For patients on eltrombopag therapy, use of Dimension Raymond TBIL is not recommended. Performed By: #### L 500.4050, L100.0100 #### [facility] [address] [place], [address] BUN/CRE 23.8 RATIO High 10-20 [facility] Comment on above: Performed By: #### L 500.4050, L100.0100 #### [facility] [address] [place], [address] CA,Total 8.8 mg/dL Normal 8.5-10.1 [facility] Comment on above: Performed By: #### L 500.4050, L100.0100 #### [facility] [address] [place], [address] Chloride [Moles/Vol] 96 mmol/L Low 98-107 [facility] Comment on above: Performed By: #### L 500.4050, L100.0100 #### [facility] [address] [place], [address] CO2 [Moles/Vol] 27.0 mmol/L Normal 21.0-32.0 [facility] Comment on above: Performed By: #### L 500.4050, L100.0100 #### [facility] [address] [place], [address] Creatinine [Mass/Vol] 1.01 mg/dL Normal 0.70-1.[address] [facility] Comment on above: Result Comment: The validity of the calculated GFR GFRAA in patients over 70 years has not been determined. Clinical correlation is essential. Performed By: #### L 500.4050, L100.0100 #### [facility] [address] [place], [address] ECRCL 108.08 ml/min Normal [facility] Comment on above: Performed By: #### L 500.4050, L100.0100 #### [facility] [address] [place], [address] EST GFR - AA 114 mL/min Normal >60 [facility] Comment on above: Result Comment: Afri can Somali GFR Calc Performed By: #### L 500.4050, L100.0100 #### [facility] [address] [place], [address] GAP 8 Normal 5-15 [facility] Comment on above: Performed By: #### L 500.4050, L100.0100 #### [facility] [address] [place], [address] GFR/1.73 sq M.predicted among non-blacks MDRD (S/P/Bld) [Vol rate/Area] 95 mL/min/{1.73_m2} Normal >60 [facility] Comment on above: Result Comment: Non- GFR Calc Performed By: #### L 500.4050, L100.0100 #### [facility] [address] [place], [address] Globulin (S) [Mass/Vol] 3.4 g/dL Normal 2.2-4.2 [facility] Comment on above: Performed By: #### L 500.4050, L100.0100 #### [facility] [address] [place], [address] Glucose [Mass/Vol] 100 mg/dL Normal 74-106 [facility] Comment on above: Result Comment: Fast ing Glucose result from 100 to 125 mg/dL suggests IMPAIRED HOMEOSTASIS per A.D.A. criteria. Performed By: #### L 500.4050, L100.0100 #### [facility] [address] [place], [address] Potassium [Moles/Vol] 3.6 mmol/L Normal 3.5-5.[address] [facility] Comment on above: Performed By: #### L 500.4050, L100.0100 #### [facility] [address] [place], [address] Sodium [Moles/Vol] 131 mmol/L Low 136-145 [facility] Comment on above: Performed By: #### L 500.4050, L100.0100 #### [facility] [address] [place], [address] T PROT 7.3 g/dL Normal 6.4-8.2 [facility] Comment on above: Performed By: #### L 500.4050, L100.0100 #### [facility] [address] [place], [address] Urea nitrogen [Mass/Vol] 24 mg/dL High 7-18 [facility] Comment on above: Performed By: #### L 500.4050, L100.0100 #### [facility] [address] [place], [address] Determination of erythrocyte mean corpuscular volume (MCV)Ordered By: Dr. Hernandez on 04-25-2022 MCV (RBC) [Entitic vol] 82.5 fL 80-94 [facility] Discharge Instructionon Discharge Instruction [facility] Medical Records Department [address] [place] [address] Instructions for Home/Discharge Instructions 04/25/22 1211 MR#: [id number] Acct: [id number] Name: BRYAN LUNDBERG Rep #: [id number] : 1995 26 From: Yudelka Hernandez MD [...] Nicholson; Dr. Tory Chirinos MD Signed Normal [facility] Hematocrit Auto (Bld) [Volum e fraction]Ordered By: Dr. Hernandez on 04-25-2022 Hematocrit (Bld) [Volume fraction] 43.0 % 40-54 [facility] - Chemistry and C hemistry - challengeOrdered By: Dr. Hernandez on 04-25-2022 ALP [Catalytic activity/Vol] 83 U/L 45-117 [facility] ALT [Catalytic activity/Vol] 18 U/L 16-61 [facility] CO2 [Moles/Vol] 27.0 mmol/L 21.0-32.0 [facility] Globulin (S) [Mass/Vol] 3.4 g/dL 2.2-4.2 [facility] Urea nitrogen/Creatinine [Mass ratio] 23.8 mg/mg 10-20 [facility] - Hematology and Cell countsOrdered By: Dr. Hernandez on 02-02-2023 Erythrocyte distribution width (RBC) [Entitic vol] 37.7 fL 35.1-43.9 [facility] Erythrocyte distribution width (RBC) [Ratio] 12.4 % 11.6-14.6 [facility] Immature granulocytes/100 WBC (Bld) 0.400 % 0.0-0.9 [facility] Comment on above: IG% - Immature Granu locytes (promyelocytes, myelocytes and metamyelocytes) > 1% indicates that a LEFT SHIFT is Present. MCH (RBC) [Entitic mass] 28.4 pg 27.0-32.0 [facility] Nucleated RBC/100 WBC (Bld) [Ratio] 0 % 0-5 [facility] MCHC Auto (RBC) [Mass/Vol]Or dered By: Dr. Hernandez on 04-25-2022 MCHC (RBC) [Mass/Vol] 34.4 g/dL 32-[address] [facility] No Panel InformationOrdered By: Dr. Hernandez on 04-25-2022 Estimated Creatinine Clearance Calc 108.08 ml/min [facility] Estimated GFR (MDRD) Amer 114 mL/min >60 [facility] Comment on above: GFR Calc Estimated GFR (MDRD) Non-Af Amer 95 mL/min >60 [facility] Comment on above: Non- GFR Calc Platelets bldOrdered By: Dr. Hernandez on 04-25-2022 Platelets (Bld) [#/Vol] 432 10*3/uL 150-450 [facility] Serum or plasma albumin maritza urement (mass/volume)Ordered By: Dr. Hernandez on 04-25-2022 Albumin [Mass/Vol] 3.9 g/dL 3.2-5.0 [facility] Serum or plasma albumin/glob ulin mass ratioOrdered By: Dr. Hernandez on 04-25-2022 Albumin/Globulin [Mass ratio] 1.1 {ratio} 0.9-2.4 [facility] Serum or plasma calcium maritza urement (mass/volume)Ordered By: Dr. Hernandez on 04-25-2022 Calcium [Mass/Vol] 8.8 mg/dL 8.5-10.1 [facility] Serum or plasma creatinine m easurement (mass/volume)Ordered By: Dr. Hernandez on 04-25-2022 Creatinine [Mass/Vol] 1.01 mg/dL 0.70-1.[address] [facility] Comment on above: The validity of the calculated GFR & GFRAA in patients over 70 years has not been determined. Clinical correlation is essential. Serum or plasma urea nitroge n measurement (mass/volume)Ordered By: Dr. Hernandez on 04-25-2022 Urea nitrogen [Mass/Vol] 24 mg/dL 7-18 [facility] Thin prep Papanicolaou smear with manual screeningOrdered By: Dr. Hernandez on 04-25-2022 Thin prep Papanicolaou smear with manual screening 11 U/L 15-37 [facility] Thin prep Papanicolaou smear with manual screening 8 5-15 [facility] Abdomen/Pelvis W IV Cont ONL Yon 04-24-2022 Abdomen/Pelvis W IV Cont ONLY [facility] [address] [place] [address] Abdomen/Pelvis W IV Cont ONLY MR#: [id number] Acct: [id number] Name: BRYAN LUNDBERG Rep #: [id number] : 1995 M 26 From: Dav alonso MD PCP: EVELYN Phan Status: ADM IN Study: Abdomen/Pelvis W IV Cont ONLY Date of Exam: Exam# [id number] Ordering Dr: Yudelka Hernandez MD STUDY: CT [...] 13:18 EST Reading Location ID and State: [address] [place] [address] , Service support , CC: EVELYN Nicholson; Dr. Yudelka Hernandez MD Instructor Of Spanish: Signed Normal [facility] Alcohol, Blood (Medical)-Ser umon 04-24-2022 SERUM ETOH < 3.0 Normal [facility] Comment on above: Result Comment: The serum:whole blood ethanol ratio is approximately 1.14 and varies slightly with hematocrit. Medical Alcohol reference interval and critical value in non-tolerant individuals; 50 - 100 Impairment 100 Intoxication 100 - 250 Severe Poisoning 250 - 400 Deep/possible fatal coma Performed By: #### L 501.9100, L505.5000 #### [facility] [address] [place], [place], [address] CBC W/Diff, Automatedon 02-0 Absolute Lymph 2.81 X10 3/uL Normal 0.83-4.51 [facility] Comment on above: Performed By: #### L 500.4050, L100.0100 #### [facility] [address] [place], [address] Absolute Neut 7.5 X10 3/uL Normal 2.0-7.7 [facility] Comment on above: Performed By: #### L 500.4050, L100.0100 #### [facility] [address] [place], [address] Basophils/100 WBC (Bld) 0.2 % Normal 0-1 [facility] Comment on above: Performed By: #### L 500.4050, L100.0100 #### [facility] [address] [place], [address] Eosinophils/100 WBC (Bld) 0.3 % Normal 0-5 [facility] Comment on above: Performed By: #### L 500.4050, L100.0100 #### [facility] [address] [place], [address] Erythrocyte distribution width (RBC) [Ratio] 12.8 % Normal 11.6-14.6 [facility] Comment on above: Performed By: #### L 500.4050, L100.0100 #### [facility] [address] [place], [address] Hematocrit (Bld) [Volume fraction] 45.2 % Normal 40-54 [facility] Comment on above: Performed By: #### L 500.4050, L100.0100 #### [facility] [address] [place], [address] Hemoglobin (Bld) [Mass/Vol] 15.6 g/dL Normal 13.0-16.5 [facility] Comment on above: Performed By: #### L 500.4050, L100.0100 #### [facility] [address] [place], [address] IG% 0.400 Normal 0.0-0.9 [facility] Comment on above: Result Comment: IG% - Immature Granulocytes (promyelocytes, myelocytes and metamyelocytes) > 1% indicates that a LEFT SHIFT is Present. Performed By: #### L 500.4050, L100.0100 #### [facility] [address] [place], [address] Lymphocytes/100 WBC (Bld) 24.5 % Normal 19-41 [facility] Comment on above: Performed By: #### L 500.4050, L100.0100 #### [facility] [address] [place], [address] MCH (RBC) [Entitic mass] 28.4 pg Normal 27.0-32.0 [facility] Comment on above: Performed By: #### L 500.4050, L100.0100 #### [facility] [address] [place], [address] MCHC (RBC) [Mass/Vol] 34.5 g/dL Normal 32-[address] [facility] Comment on above: Performed By: #### L 500.4050, L100.0100 #### [facility] [address] [place], [address] MCV (RBC) [Entitic vol] 82.3 fL Normal 80-94 [facility] Comment on above: Performed By: #### L 500.4050, L100.0100 #### [facility] [address] [place], [address] Monocytes/100 WBC (Bld) 9.0 % Normal 0-10 [facility] Comment on above: Performed By: #### L 500.4050, L100.0100 #### [facility] [address] [place], [address] Neutrophils/100 WBC (Bld) 65.6 % Normal 47-70 [facility] Comment on above: Performed By: #### L 500.4050, L100.0100 #### [facility] [address] [place], [address] Nucleated RBC (Bld) [#/Vol] 0 10*3/uL Normal 0-5 [facility] Comment on above: Performed By: #### L 500.4050, L100.0100 #### [facility] [address] [place], [address] Platelet mean volume (Bld) [Entitic vol] 8.5 fL Normal 6.2-12.0 [facility] Comment on above: Performed By: #### L 500.4050, L100.0100 #### [facility] [address] [place], [address] Platelets (Bld) [#/Vol] 451 10*3/uL High 150-450 [facility] Comment on above: Performed By: #### L 500.4050, L100.0100 #### [facility] [address] [place], [address] RBC (Bld) [#/Vol] 5.49 10*6/uL Normal 4.6-6.2 [facility] Comment on above: Performed By: #### L 500.4050, L100.0100 #### [facility] [address] [place], [address] RDW SD 38.4 fl Normal 35.1-43.9 [facility] Comment on above: Performed By: #### L 500.4050, L100.0100 #### [facility] [address] [place], [address] WBC (Bld) [#/Vol] 11.5 10*3/uL High 4.4-11.0 [facility] Comment on above: Performed By: #### L 500.4050, L100.0100 #### [facility] [address] [place], [address] Comprehensive Metabolic Prof ilon 04-24-2022 Albumin [Mass/Vol] 4.0 g/dL Normal 3.2-5.0 [facility] Comment on above: Performed By: #### L 500.4050, L100.0100 #### [facility] [address] [place], [address] Albumin/Globulin [Mass ratio] 1.1 {ratio} Normal 0.9-2.4 [facility] Comment on above: Performed By: #### L 500.4050, L100.0100 #### [facility] [address] [place], [address] ALK P 89 U/L Normal 45-117 [facility] Comment on above: Performed By: #### L 500.4050, L100.0100 #### [facility] [address] [place], [address] ALT [Catalytic activity/Vol] 19 U/L Normal 16-61 [facility] Comment on above: Performed By: #### L 500.4050, L100.0100 #### [facility] [address] [place], [address] AST [Catalytic activity/Vol] 16 U/L Normal 15-37 [facility] Comment on above: Performed By: #### L 500.4050, L100.0100 #### [facility] [address] [place], [address] Bilirubin [Mass/Vol] 1.20 mg/dL High 0.20-1.00 [facility] Comment on above: Result Comment: For patients on eltrombopag therapy, use of Dimension Raymond TBIL is not recommended. Performed By: #### L 500.4050, L100.0100 #### [facility] [address] [place], [address] BUN/CRE 38.4 RATIO High 10-20 [facility] Comment on above: Performed By: #### L 500.4050, L100.0100 #### [facility] [address] [place], [address] CA,Total 8.7 mg/dL Normal 8.5-10.1 [facility] Comment on above: Performed By: #### L 500.4050, L100.0100 #### [facility] [address] [place], [address] Chloride [Moles/Vol] 95 mmol/L Low 98-107 [facility] Comment on above: Performed By: #### L 500.4050, L100.0100 #### [facility] [address] [place], [address] CO2 [Moles/Vol] 24.0 mmol/L Normal 21.0-32.0 [facility] Comment on above: Performed By: #### L 500.4050, L100.0100 #### [facility] [address] [place], [address] Creatinine [Mass/Vol] 0.99 mg/dL Normal 0.70-1.[address] [facility] Comment on above: Result Comment: The validity of the calculated GFR GFRAA in patients over 70 years has not been determined. Clinical correlation is essential. Performed By: #### L 500.4050, L100.0100 #### [facility] [address] [place], [address] ECRCL 110.27 ml/min Normal [facility] Comment on above: Performed By: #### L 500.4050, L100.0100 #### [facility] [address] [place], [address] EST GFR - AA 117 mL/min Normal >60 [facility] Comment on above: Result Comment: Afri can Somali GFR Calc Performed By: #### L 500.4050, L100.0100 #### [facility] [address] [place], [address] GAP 11 Normal 5-15 [facility] Comment on above: Performed By: #### L 500.4050, L100.0100 #### [facility] [address] [place], [address] GFR/1.73 sq M.predicted among non-blacks MDRD (S/P/Bld) [Vol rate/Area] 97 mL/min/{1.73_m2} Normal >60 [facility] Comment on above: Result Comment: Non- GFR Calc Performed By: #### L 500.4050, L100.0100 #### [facility] [address] [place], [address] Globulin (S) [Mass/Vol] 3.8 g/dL Normal 2.2-4.2 [facility] Comment on above: Performed By: #### L 500.4050, L100.0100 #### [facility] [address] [place], [address] Glucose [Mass/Vol] 113 mg/dL High 74-106 [facility] Comment on above: Result Comment: Fast ing Glucose result from 100 to 125 mg/dL suggests IMPAIRED HOMEOSTASIS per A.D.A. criteria. Performed By: #### L 500.4050, L100.0100 #### [facility] [address] [place], [address] Potassium [Moles/Vol] 3.7 mmol/L Normal 3.5-5.[address] [facility] Comment on above: Performed By: #### L 500.4050, L100.0100 #### [facility] [address] [place], [address] Sodium [Moles/Vol] 130 mmol/L Low 136-145 [facility] Comment on above: Performed By: #### L 500.4050, L100.0100 #### [facility] [address] [place], [address] T PROT 7.8 g/dL Normal 6.4-8.2 [facility] Comment on above: Performed By: #### L 500.4050, L100.0100 #### [facility] [address] [place], [address] Urea nitrogen [Mass/Vol] 38 mg/dL High 7-18 [facility] Comment on above: Performed By: #### L [id number], L100.0100 #### [facility] [address] [place], [address] H AND P Exam - [place] 04-24-2022 H&P Exam - Hospitalist [facility] Medical Records Department [address] [place] [address] H P Exam - Hospitalist 04/23/226 MR#: [id number] Acct: [id number] Name: BRYAN LUNDBERG Rep #: [id number] : 1995 26 From: Tory Chirinos MD PCP: EVELYN Phan Status:ADM IN Location: [facility] CAE046-3 HPI - General General Date of Admission: [...] was positive for amphetamines, ecstasy and cannabinoids. [facility] Medical History Asthma Tobacco abuse Home Medications [...] Clarity Clear, Urine pH 6.0, Ur Specific [place] 1.025, Urine Protein 100 H, Urine Glucose [...] Assessment Pl (more content not included)... Normal [facility] Urine Drug Screen (VISTA)on 04-24-2022 AMPHETAMINES Positive Abnormal <1000 ng/mL [facility] Comment on above: Performed By: #### L 501.9100, L505.5000 #### [facility] [address] [place], [place], [id number] BARBITIURATES Negative Normal < 200 ng/mL [facility] Comment on above: Performed By: #### L 501.9100, L505.5000 #### [facility] [address] [place], [place], [address] BENZODIAZIPINE Negative Normal < 200 ng/mL [facility] Comment on above: Performed By: #### L 501.9100, L505.5000 #### [facility] [address] [place], [address] COCAINE Negative Normal < 300 ng/mL [facility] Comment on above: Performed By: #### L 501.9100, L505.5000 #### [facility] [address] [place], [address] ECSTACY Positive Abnormal < 500 ng/mL [facility] Comment on above: Performed By: #### L 501.9100, L505.5000 #### [facility] [address] [place], [address] METHADONE Negative Normal < 300 ng/mL [facility] Comment on above: Performed By: #### L 501.9100, L505.5000 #### [facility] [address] [place], [place], [facility] OPIATES Negative Normal < 300 ng/mL [facility] Comment on above: Performed By: #### L 501.9100, L505.5000 #### [facility] [address] [place], [place], [facility] PCP Negative Normal < 25 ng/mL [facility] Comment on above: Performed By: #### L 501.9100, L505.5000 #### [facility] [address] [place], [address] THC Positive Abnormal < 50 ng/mL [facility] Comment on above: Performed By: #### L 501.9100, L505.5000 #### [facility] [address] [place], [address] VISTA UDS PH 5 Normal [facility] Comment on above: Performed By: #### L 501.9100, L505.5000 #### [facility] [address] [place], [address] Basic Metabolic Profile (BMP )on 04-23-2022 BUN/CRE 33.1 RATIO High 10-20 [facility] Comment on above: Performed By: #### L 500.4050, L100.0100 #### [facility] [address] [place], [address] CA,Total 9.7 mg/dL Normal 8.5-10.1 [facility] Comment on above: Performed By: #### L 500.4050, L100.0100 #### [facility] [address] [place], [address] Chloride [Moles/Vol] 92 mmol/L Low 98-107 [facility] Comment on above: Performed By: #### L 500.4050, L100.0100 #### [facility] [address] [place], [address] CO2 [Moles/Vol] 27.0 mmol/L Normal 21.0-32.0 [facility] Comment on above: Performed By: #### L 500.4050, L100.0100 #### [facility] [address] [place], [address] Creatinine [Mass/Vol] 1.30 mg/dL Normal 0.70-1.[address] [facility] Comment on above: Result Comment: The validity of the calculated GFR GFRAA in patients over 70 years has not been determined. Clinical correlation is essential. Performed By: #### L 500.4050, L100.0100 #### [facility] [address] [place], [address] ECRCL 86.35 ml/min Normal [facility] Comment on above: Performed By: #### L 500.4050, L100.0100 #### [facility] [address] [place], [address] EST GFR - AA 86 mL/min Normal >60 [facility] Comment on above: Result Comment: Afri can Somali GFR Calc Performed By: #### L 500.4050, L100.0100 #### [facility] [address] [place], [address] GAP 12 Normal 5-15 [facility] Comment on above: Performed By: #### L [id number], L100.0100 #### [facility] [address] [place], [address] GFR/1.73 sq M.predicted among non-blacks MDRD (S/P/Bld) [Vol rate/Area] 71 mL/min/{1.73_m2} Normal >60 [facility] Comment on above: Result Comment: Non- GFR Calc Performed By: #### L 500.4050, L100.0100 #### [facility] [address] [place], [address] Glucose [Mass/Vol] 113 mg/dL High 74-106 [facility] Comment on above: Result Comment: Fast ing Glucose result from 100 to 125 mg/dL suggests IMPAIRED HOMEOSTASIS per A.D.A. criteria. Performed By: #### L 500.4050, L100.0100 #### [facility] [address] [place], [address] Potassium [Moles/Vol] 3.7 mmol/L Normal 3.5-5.[address] [facility] Comment on above: Performed By: #### L 500.4050, L100.0100 #### [facility] [address] [place], [address] Sodium [Moles/Vol] 131 mmol/L Low 136-145 [facility] Comment on above: Performed By: #### L 500.4050, L100.0100 #### [facility] [address] [place], [address] Urea nitrogen [Mass/Vol] 43 mg/dL High 7-18 [facility] Comment on above: Performed By: #### L 500.4050, L100.0100 #### [facility] [address] [place], [address] Basophil percentageOrdered B y: Dr. Cha on 04-23-2022 Basophil percentage 0-5 SEEN /hpf 0-5 [facility] Bilirubin [Mass/Vol] 1.10 mg/dL 0.20-1.00 [facility] Comment on above: For patients on eltr ombopag therapy, use of Dimension Raymond TBIL is not recommended. Chloride [Moles/Vol] 92 mmol/L 98-107 [facility] Glucose [Mass/Vol] 113 mg/dL 74-106 [facility] Comment on above: Fasting Glucose resu lt from 100 to 125 mg/dL suggests IMPAIRED HOMEOSTASIS per A.D.A. criteria. Potassium [Moles/Vol] 3.7 mmol/L 3.5-5.[address] [facility] Protein [Mass/Vol] 9.7 g/dL 6.4-8.2 [facility] Sodium [Moles/Vol] 131 mmol/L 136-145 [facility] Bilirubin Test strip Ql (U)O rdered By: Dr. Cha on 04-23-2022 Bilirubin Ql (U) Negative Negative [facility] Direct bilirubinOrdered By: Dr. Cha on 04-23-2022 Bilirubin.direct [Mass/Vol] 0.25 mg/dL 0.00-0.30 [facility] Department Summary on 04-23-2022 Emergency Department Summary [facility] Medical Records Department [address] [place] [address] Emergency Department Summary 04/23/22 MR#: [id number] Acct: [id number] Name: BRYAN LUNDBERG Rep #: [id number] : 1995 26 From: Fam Cha MD PCP: EVELYN Pahn Status:REG ER Location: ED HPI HPI - [...] to auscultation (more content not included)... Normal [facility] Hyaline casts LM.LPF (Urine sed) [#/Area]Ordered By: Dr. Cha on 04-23-2022 Hyaline casts (Urine sed) [#/Area] 0 /[LPF] 0-5 [facility] Ketones Test strip Ql (U)Ord ered By: Dr. Cha on 04-23-2022 Ketones Ql (U) 5 mg/dl Negative [facility] - Chemistry and C hemistry - challengeOrdered By: Dr. Cha on 04-23-2022 ALP [Catalytic activity/Vol] 105 U/L 45-117 [facility] ALT [Catalytic activity/Vol] 22 U/L 16-61 [facility] CO2 [Moles/Vol] 27.0 mmol/L 21.0-32.0 [facility] Globulin (S) [Mass/Vol] 4.7 g/dL 2.2-4.2 [facility] Lipase [Catalytic activity/Vol] 122 U/L 73-393 [facility] Urea nitrogen/Creatinine [Mass ratio] 33.1 mg/mg 10-20 [facility] - Drug toxicology Ordered By: Dr. Cha on 04-23-2022 Amphetamines Ql (U) Positive <1000 ng/mL [facility] Benzodiazepines Ql (U) Negative < 200 ng/mL [facility] Cannabinoids Screen Ql (U) Positive < 50 ng/mL [facility] Cocaine Ql (U) Negative < 300 ng/mL [facility] Opiates Ql (U) Negative < 300 ng/mL [facility] Lipaseon 04-23-2022 Lipase [Catalytic activity/Vol] 122 U/L Normal 73-393 [facility] Comment on above: Performed By: #### L 500.4050, L100.0100 #### [facility] [address] [place], [address] Liver Profileon 04-23-2022 Albumin [Mass/Vol] 5.0 g/dL Normal 3.2-5.0 [facility] Comment on above: Performed By: #### L [id number], L100.0100 #### [facility] [address] [place], [address] ALK P 105 U/L Normal 45-117 [facility] Comment on above: Performed By: #### L 500.4050, L100.0100 #### [facility] [address] [place], [address] ALT [Catalytic activity/Vol] 22 U/L Normal 16-61 [facility] Comment on above: Performed By: #### L 500.4050, L100.0100 #### [facility] [address] [place], [address] AST [Catalytic activity/Vol] 16 U/L Normal 15-37 [facility] Comment on above: Performed By: #### L 500.4050, L100.0100 #### [facility] [address] [place], [address] Bilirubin [Mass/Vol] 1.10 mg/dL High 0.20-1.00 [facility] Comment on above: Result Comment: For patients on eltrombopag therapy, use of Dimension Raymond TBIL is not recommended. Performed By: #### L 500.4050, L100.0100 #### [facility] [address] [place], [address] Bilirubin.direct [Mass/Vol] 0.25 mg/dL Normal 0.00-0.30 [facility] Comment on above: Performed By: #### L 500.4050, L100.0100 #### [facility] [address] [place], [address] Globulin (S) [Mass/Vol] 4.7 g/dL High 2.2-4.2 [facility] Comment on above: Performed By: #### L 500.4050, L100.0100 #### [facility] [address] [place], [address] T PROT 9.7 g/dL High 6.4-8.2 [facility] Comment on above: Performed By: #### L [id number], L100.0100 #### [facility] [address] [place], [address] Mucus LM Ql (Urine sed)Order ed By: Dr. Cha on 04-23-2022 Mucus Ql (Urine sed) 0 SEEN /hpf [facility] Nitrite Test strip Ql (U)Ord ered By: Dr. Cha on 04-23-2022 Nitrite Ql (U) Negative Negative [facility] No Panel InformationOrdered By: Dr. Cha on 04-23-2022 Ethyl Alcohol Level < 3.0 mg/dL [facility] Comment on above: The serum:whole bloo d ethanol ratio is approximately 1.14and varies slightly with hematocrit. Medical Alcohol reference interval and critical value innon-tolerant individuals; 50 - 100 Impairment 100 Intoxication 100 - 250 Severe Poisoning 250 - 400 Deep/possible fatal coma MDMA (Ecstasy) Screen Positive < 500 ng/mL [facility] Urine Barbiturates Screen Negative < 200 ng/mL [facility] Urine Drug Screen Comment [facility] Comment on above: CONFIRMATORY TESTING FOR [...] Methadone Screen Negative < 300 ng/mL [facility] Estimated Creatinine Clearance Calc 86.35 ml/min [facility] Estimated GFR (MDRD) Amer 86 mL/min >60 [facility] Comment on above: GFR Calc Estimated GFR (MDRD) Non-Af Amer 71 mL/min >60 [facility] Comment on above: Non- GFR Calc Protein Test strip Ql (U)Ord ered By: Dr. Cha on 04-23-2022 Protein Ql (U) 100 mg/dl Negative [facility] Serum or plasma albumin maritza urement (mass/volume)Ordered By: Dr. Cha on 04-23-2022 Albumin [Mass/Vol] 5.0 g/dL 3.2-5.0 [facility] Serum or plasma calcium maritza urement (mass/volume)Ordered By: Dr. Cha on 04-23-2022 Calcium [Mass/Vol] 9.7 mg/dL 8.5-10.1 [facility] Serum or plasma creatinine m easurement (mass/volume)Ordered By: Dr. Cha on 04-23-2022 Creatinine [Mass/Vol] 1.30 mg/dL 0.70-1.[address] [facility] Comment on above: The validity of the calculated GFR & GFRAA in patients over 70 years has not been determined. Clinical correlation is essential. Serum or plasma urea nitroge n measurement (mass/volume)Ordered By: Dr. Cha on 04-23-2022 Urea nitrogen [Mass/Vol] 43 mg/dL 7-18 [facility] Squamous epithelial cells de tection in urine sediment by light microscopyOrdered By: Dr. Cha on 04-23-2022 Epithelial cells.squamous LM Ql (Urine sed) 0 SEEN /hpf 0-5 [facility] Thin prep Papanicolaou smear with manual screeningOrdered By: Dr. Cha on 04-23-2022 Thin prep Papanicolaou smear with manual screening 16 U/L 15-37 [facility] Thin prep Papanicolaou smear with manual screening 12 5-15 [facility] Urinalysis, Completeon 04-23 CAST,HYALINE 0-5 SEEN Normal 0-5 [facility] Comment on above: Order Comment: CLEAN CATCH Performed By: #### L 400.0001 #### [facility] [address] [place], [address] WBC 0-5 SEEN Normal 0-5 [facility] Comment on above: Order Comment: CLEAN CATCH Performed By: #### L 400.0001 #### [facility] [address] [place], [address] BACTERIA 0 SEEN Normal None Seen [facility] Comment on above: Order Comment: CLEAN CATCH Performed By: #### L 400.0001 #### [facility] [address] [place], [address] EPI,SQUAMOUS 0 SEEN Normal 0-5 [facility] Comment on above: Order Comment: CLEAN CATCH Performed By: #### L 400.0001 #### [facility] [address] [place], [address] Mucus Ql (Urine sed) 0 SEEN Normal [facility] Comment on above: Order Comment: CLEAN CATCH Performed By: #### L 400.0001 #### [facility] [address] [place], [address] RBC 0 SEEN Normal 0-5 [facility] Comment on above: Order Comment: CLEAN CATCH Performed By: #### L 400.0001 #### [facility] [address] [place], [place], [address] Urine blood detectionOrdered By: Dr. Cha on 04-23-2022 RBC Ql (U) Negative Negative [facility] RBC Ql (U) 0 SEEN /hpf 0-5 [facility] Urine clarityOrdered By: Dr. Cha on 04-23-2022 Clarity (U) Clear Clear [facility] Urine color determinationOrd ered By: Dr. Cha on 04-23-2022 Color (U) Yellow Yellow [facility] Urine glucose detectionOrder ed By: Dr. Cha on 04-23-2022 Glucose Ql (U) Normal mg/dl Normal [facility] Urine leukocyte esterase det ection by dipstickOrdered By: Dr. Cha on 04-23-2022 Leukocyte esterase Test strip Ql (U) Negative Negative [facility] Urine pHOrdered By: Dr. Wilfrid rich on 04-23-2022 pH (U) 6.0 [pH] 5.0 - 8.0 [facility] Urine phencyclidine (PCP) de tectionOrdered By: Dr. Cha on 04-23-2022 Phencyclidine Ql (U) Negative < 25 ng/mL [facility] Urine sediment bacteria coun t by microscopy (number/high power field)Ordered By: Dr. Cha on 04-23-2022 Bacteria LM.HPF (Urine sed) [#/Area] 0 /[HPF] None Seen [facility] Urine specific gravity measu rementOrdered By: Dr. Cha on 04-23-2022 Specific gravity (U) [Rel density] 1.025 1.002-1.030 [facility] Urobilinogen Auto test strip Ql (U)Ordered By: Dr. Cha on 04-23-2022 Urobilinogen Ql (U) Normal mg/dl Normal [facility] Absolute lymphocyte countOrd ered By: Dr. Menendez on 03-02-2022 Lymphocytes Auto (Unsp spec) [#/Vol] 3.06 10*3/uL 0.83-4.51 [facility] Basic Metabolic Profile (BMP )on 03-02-2022 BUN/CRE 15.5 RATIO Normal 10-20 [facility] Comment on above: Performed By: #### L 501.3620, L100.0100, L500.2500 #### [facility] [address] [place], [address] CA,Total 9.2 mg/dL Normal 8.5-10.1 [facility] Comment on above: Performed By: #### L 501.3620, L100.0100, L500.2500 #### [facility] [address] [place], [address] Chloride [Moles/Vol] 107 mmol/L Normal 98-107 [facility] Comment on above: Performed By: #### L 501.3620, L100.0100, L500.2500 #### [facility] [address] [place], [address] CO2 [Moles/Vol] 29.0 mmol/L Normal 21.0-32.0 [facility] Comment on above: Performed By: #### L 501.3620, L100.0100, L500.2500 #### [facility] [address] [place], [address] Creatinine [Mass/Vol] 0.77 mg/dL Normal 0.70-1.[address] [facility] Comment on above: Result Comment: The validity of the calculated GFR GFRAA in patients over 70 years has not been determined. Clinical correlation is essential. Performed By: #### L 501.3620, L100.0100, L500.2500 #### [facility] [address] [place], [address] ECRCL 153.90 ml/min Normal [facility] Comment on above: Performed By: #### L 501.3620, L100.0100, L500.2500 #### [facility] [address] [place], [address] EST GFR - AA 156 mL/min Normal >60 [facility] Comment on above: Result Comment: Afri can Somali GFR Calc Performed By: #### L 501.3620, L100.0100, L500.2500 #### [facility] [address] [place], [address] GAP 5 Normal 5-15 [facility] Comment on above: Performed By: #### L 501.3620, L100.0100, L500.2500 #### [facility] [address] [place], [address] GFR/1.73 sq M.predicted among non-blacks MDRD (S/P/Bld) [Vol rate/Area] 129 mL/min/{1.73_m2} Normal >60 [facility] Comment on above: Result Comment: Non- GFR Calc Performed By: #### L 501.3620, L100.0100, L500.2500 #### [facility] [address] [place], [address] Glucose [Mass/Vol] 98 mg/dL Normal 74-106 [facility] Comment on above: Performed By: #### L 501.3620, L100.0100, L500.2500 #### [facility] [address] [place], [address] Potassium [Moles/Vol] 3.5 mmol/L Normal 3.5-5.[address] [facility] Comment on above: Performed By: #### L 501.3620, L100.0100, L500.2500 #### [facility] [address] [place], [address] Sodium [Moles/Vol] 141 mmol/L Normal 136-145 [facility] Comment on above: Performed By: #### L 501.3620, L100.0100, L500.2500 #### [facility] [address] [place], [address] Urea nitrogen [Mass/Vol] 12 mg/dL Normal 7-18 [facility] Comment on above: Performed By: #### L 501.3620, L100.0100, L500.2500 #### [facility] [address] [place], [address] Basophil percentageOrdered B y: Dr. Menendez on 03-02-2022 Basophils/100 WBC (Bld) 0.4 % 0-1 [facility] Chloride [Moles/Vol] 107 mmol/L 98-107 [facility] Eosinophils/100 WBC (Bld) 3.5 % 0-5 [facility] Glucose [Mass/Vol] 98 mg/dL 74-106 [facility] Neutrophils (Bld) [#/Vol] 2.9 10*3/uL 2.0-7.7 [facility] Neutrophils/100 WBC (Bld) 43.1 % 47-70 [facility] Potassium [Moles/Vol] 3.5 mmol/L 3.5-5.[address] [facility] Sodium [Moles/Vol] 141 mmol/L 136-145 [facility] WBC (Bld) [#/Vol] 6.8 10*3/uL 4.4-11.0 [facility] Blood erythrocytes count (nu mber/volume)Ordered By: Dr. Menendez on 03-02-2022 RBC (Bld) [#/Vol] 4.89 10*6/uL 4.6-6.2 [facility] Blood hemoglobin measurement (mass/volume)Ordered By: Dr. Menendez on 03-02-2022 Hemoglobin (Bld) [Mass/Vol] 13.8 g/dL 13.0-16.5 [facility] Blood lymphocytes/100 leukoc ytesOrdered By: Dr. Menendez on 03-02-2022 Lymphocytes/100 WBC (Bld) 45.1 % 19-41 [facility] Blood monocytes/100 leukocyt esOrdered By: Dr. Menendez on 03-02-2022 Monocytes/100 WBC (Bld) 7.8 % 0-10 [facility] Blood platelet mean volumeOr dered By: Dr. Menendez on 03-02-2022 Platelet mean volume (Bld) [Entitic vol] 8.8 fL 6.2-12.0 [facility] CBC W/Diff, Automatedon 12-2021 Absolute Lymph 3.06 X10 3/uL Normal 0.83-4.51 [facility] Comment on above: Performed By: #### L 501.3620, L100.0100, L500.2500 #### [facility] [address] [place], [address] Absolute Neut 2.9 X10 3/uL Normal 2.0-7.7 [facility] Comment on above: Performed By: #### L 501.3620, L100.0100, L500.2500 #### [facility] [address] [place], [address] Basophils/100 WBC (Bld) 0.4 % Normal 0-1 [facility] Comment on above: Performed By: #### L 501.3620, L100.0100, L500.2500 #### [facility] [address] [place], [address] Eosinophils/100 WBC (Bld) 3.5 % Normal 0-5 [facility] Comment on above: Performed By: #### L 501.3620, L100.0100, L500.2500 #### [facility] [address] [place], [address] Erythrocyte distribution width (RBC) [Ratio] 13.2 % Normal 11.6-14.6 [facility] Comment on above: Performed By: #### L 501.3620, L100.0100, L500.2500 #### [facility] [address] [place], [address] Hematocrit (Bld) [Volume fraction] 41.0 % Normal 40-54 [facility] Comment on above: Performed By: #### L 501.3620, L100.0100, L500.2500 #### [facility] [address] [place], [address] Hemoglobin (Bld) [Mass/Vol] 13.8 g/dL Normal 13.0-16.5 [facility] Comment on above: Performed By: #### L 501.3620, L100.0100, L500.2500 #### [facility] [address] [place], [address] IG% 0.100 Normal 0.0-0.9 [facility] Comment on above: Result Comment: IG% - Immature Granulocytes (promyelocytes, myelocytes and metamyelocytes) > 1% indicates that a LEFT SHIFT is Present. Performed By: #### L 501.3620, L100.0100, L500.2500 #### [facility] [address] [place], [address] Lymphocytes/100 WBC (Bld) 45.1 % High 19-41 [facility] Comment on above: Performed By: #### L 501.3620, L100.0100, L500.2500 #### [facility] [address] [place], [address] MCH (RBC) [Entitic mass] 28.2 pg Normal 27.0-32.0 [facility] Comment on above: Performed By: #### L 501.3620, L100.0100, L500.2500 #### [facility] [address] [place], [address] MCHC (RBC) [Mass/Vol] 33.7 g/dL Normal 32-36 [facility] Comment on above: Performed By: #### L 501.3620, L100.0100, L500.2500 #### [facility] [address] [place], [address] MCV (RBC) [Entitic vol] 83.8 fL Normal 80-94 [facility] Comment on above: Performed By: #### L 501.3620, L100.0100, L500.2500 #### [facility] [address] [place], [address] Monocytes/100 WBC (Bld) 7.8 % Normal 0-10 [facility] Comment on above: Performed By: #### L 501.3620, L100.0100, L500.2500 #### [facility] [address] [place], [address] Neutrophils/100 WBC (Bld) 43.1 % Low 47-70 [facility] Comment on above: Performed By: #### L 501.3620, L100.0100, L500.2500 #### [facility] [address] [place], [address] Nucleated RBC (Bld) [#/Vol] 0 10*3/uL Normal 0-5 [facility] Comment on above: Performed By: #### L 501.3620, L100.0100, L500.2500 #### [facility] [address] [place], [address] Platelet mean volume (Bld) [Entitic vol] 8.8 fL Normal 6.2-12.0 [facility] Comment on above: Performed By: #### L 501.3620, L100.0100, L500.2500 #### [facility] [address] [place], [address] Platelets (Bld) [#/Vol] 371 10*3/uL Normal 150-450 [facility] Comment on above: Performed By: #### L 501.3620, L100.0100, L500.2500 #### [facility] [address] [place], [address] RBC (Bld) [#/Vol] 4.89 10*6/uL Normal 4.6-6.2 [facility] Comment on above: Performed By: #### L 501.3620, L100.0100, L500.2500 #### [facility] [address] [place], [address] RDW SD 40.3 fl Normal 35.1-43.9 [facility] Comment on above: Performed By: #### L 501.3620, L100.0100, L500.2500 #### [facility] [address] [place], [address] WBC (Bld) [#/Vol] 6.8 10*3/uL Normal 4.4-11.0 [facility] Comment on above: Performed By: #### L 501.3620, L100.0100, L500.2500 #### [facility] [address] [place], [address] CPK Total, Creatine Kinaseon 03-02-2022 CPK TOTAL 196 U/L Normal 39-308 [facility] Comment on above: Performed By: #### L 501.3620, L100.0100, L500.2500 #### [facility] [address] [place], [address] Determination of erythrocyte mean corpuscular volume (MCV)Ordered By: Dr. Menendez on 03-02-2022 MCV (RBC) [Entitic vol] 83.8 fL 80-94 [facility] Emergency Department Summary on 03-02-2022 Emergency Department Summary [facility] Medical Records Department [address] [place] [address] Emergency Department Summary 03/02/22 MR#: [id number] Acct: [id number] Name: BRYAN LUNDBERG Rep #: [id number] : 1995 26 From: [place] Menendez MD PCP: EEVLYN Phan Status:REG ER Location: ED HPI History [...] But he denies injection of any drugs. [facility] Medical History Asthma Tobacco abuse [...] Psych Moo (more content not included)... Normal [facility] Hematocrit Auto (Bld) [Volum e fraction]Ordered By: Dr. Menendez on 03-02-2022 Hematocrit (Bld) [Volume fraction] 41.0 % 40-54 [facility] - Chemistry and C hemistry - challengeOrdered By: Dr. Menendez on 03-02-2022 CK [Catalytic activity/Vol] 196 U/L 39-308 [facility] CO2 [Moles/Vol] 29.0 mmol/L 21.0-32.0 [facility] Urea nitrogen/Creatinine [Mass ratio] 15.5 mg/mg 10-20 [facility] - Hematology and Cell countsOrdered By: Dr. Menendez on 03-02-2022 Erythrocyte distribution width (RBC) [Entitic vol] 40.3 fL 35.1-43.9 [facility] Erythrocyte distribution width (RBC) [Ratio] 13.2 % 11.6-14.6 [facility] Immature granulocytes/100 WBC (Bld) 0.100 % 0.0-0.9 [facility] Comment on above: IG% - Immature Granu locytes (promyelocytes, myelocytes and metamyelocytes) > 1% indicates that a LEFT SHIFT is Present. MCH (RBC) [Entitic mass] 28.2 pg 27.0-32.0 [facility] Nucleated RBC/100 WBC (Bld) [Ratio] 0 % 0-5 [facility] MCHC Auto (RBC) [Mass/Vol]Or dered By: Dr. Menendez on 03-02-2022 MCHC (RBC) [Mass/Vol] 33.7 g/dL 32-[address] [facility] No Panel InformationOrdered By: Dr. Menendez on 03-02-2022 Estimated Creatinine Clearance Calc 153.90 ml/min [facility] Estimated GFR (MDRD) Amer 156 mL/min >60 [facility] Comment on above: GFR Calc Estimated GFR (MDRD) Non-Af Amer 129 mL/min >60 [facility] Comment on above: Non- GFR Calc Platelets bldOrdered By: Dr. Menendez on 03-02-2022 Platelets (Bld) [#/Vol] 371 10*3/uL 150-450 [facility] Serum or plasma calcium maritza urement (mass/volume)Ordered By: Dr. Menendez on 03-02-2022 Calcium [Mass/Vol] 9.2 mg/dL 8.5-10.1 [facility] Serum or plasma creatinine m easurement (mass/volume)Ordered By: Dr. Menendez on 03-02-2022 Creatinine [Mass/Vol] 0.77 mg/dL 0.70-1.[address] [facility] Comment on above: The validity of the calculated GFR & GFRAA in patients over 70 years has not been determined. Clinical correlation is essential. Serum or plasma urea nitroge n measurement (mass/volume)Ordered By: Dr. Menendez on 03-02-2022 Urea nitrogen [Mass/Vol] 12 mg/dL 7-18 [facility] Thin prep Papanicolaou smear with manual screeningOrdered By: Dr. Menendez on 03-02-2022 Thin prep Papanicolaou smear with manual screening 5 5-15 [facility] Urinalysis, Completeon 03-02 BACTERIA Normal None Seen [facility] Comment on above: Order Comment: CLEAN CATCH Result Comment: Romy perales via OM: Ordered Performed By: #### L 501.9100, L505.5000 #### [facility] [address] [place], [address] BILIRUBIN URINE Normal Negative [facility] Comment on above: Order Comment: CLEAN CATCH Result Comment: Romy perales via OM: Ordered Performed By: #### L 501.9100, L505.5000 #### [facility] [address] [place], [address] Clarity (U) Normal Clear [facility] Comment on above: Order Comment: CLEAN CATCH Result Comment: Romy perales via OM: Ordered Performed By: #### L 501.9100, L505.5000 #### [facility] [address] [place], [address] Color (U) Normal Yellow [facility] Comment on above: Order Comment: CLEAN CATCH Result Comment: Canc elled via OM: MD Ordered Performed By: #### L 501.9100, L505.5000 #### [facility] [address] [place], [address] EPI,SQUAMOUS Normal 0-5 [facility] Comment on above: Order Comment: CLEAN CATCH Result Comment: Canc elled via OM: MD Ordered Performed By: #### L 501.9100, L505.5000 #### [facility] [address] [place], [address] GLUCOSE, UR Normal Normal [facility] Comment on above: Order Comment: CLEAN CATCH Result Comment: Canc elled via OM: MD Ordered Performed By: #### L 501.9100, L505.5000 #### [facility] [address] [place], [address] KETONE UR Normal Negative [facility] Comment on above: Order Comment: CLEAN CATCH Result Comment: Canc elled via OM: MD Ordered Performed By: #### L 501.9100, L505.5000 #### [facility] [address] [place], [address] LEUK ESTERASE Normal Negative [facility] Comment on above: Order Comment: CLEAN CATCH Result Comment: Canc elled via OM: MD Ordered Performed By: #### L 501.9100, L505.5000 #### [facility] [address] [place], [address] Mucus Ql (Urine sed) Normal [facility] Comment on above: Order Comment: CLEAN CATCH Result Comment: Canc elled via OM: MD Ordered Performed By: #### L 501.9100, L505.5000 #### [facility] [address] [place], [address] Nitrite Ql (U) Normal Negative [facility] Comment on above: Order Comment: CLEAN CATCH Result Comment: Canc elled via OM: MD Ordered Performed By: #### L 501.9100, L505.5000 #### [facility] [address] [place], [address] OCCULT BLOOD-UR Normal Negative [facility] Comment on above: Order Comment: CLEAN CATCH Result Comment: Canc elled via OM: MD Ordered Performed By: #### L 501.9100, L505.5000 #### [facility] [address] [place], [address] pH UR Normal 5.0 - 8.0 [facility] Comment on above: Order Comment: CLEAN CATCH Result Comment: Canc elled via OM: MD Ordered Performed By: #### L 501.9100, L505.5000 #### [facility] [address] [place], [address] PROT DIPSTX Normal Negative [facility] Comment on above: Order Comment: CLEAN CATCH Result Comment: Canc elled via OM: MD Ordered Performed By: #### L 501.9100, L505.5000 #### [facility] [address] [place], [address] RBC Normal 0-5 [facility] Comment on above: Order Comment: CLEAN CATCH Result Comment: Canc elled via OM: MD Ordered Performed By: #### L 501.9100, L505.5000 #### [facility] [address] [place], [address] SP.GR. DIPSTX Normal 1.002-1.030 [facility] Comment on above: Order Comment: CLEAN CATCH Result Comment: Canc elled via OM: MD Ordered Performed By: #### L 501.9100, L505.5000 #### [facility] [address] [place], [address] UR Preservative Normal [facility] Comment on above: Order Comment: CLEAN CATCH Result Comment: Canc elled via OM: MD Ordered Performed By: #### L 501.9100, L505.5000 #### [facility] [address] [place], [address] UROBILI Normal Normal [facility] Comment on above: Order Comment: CLEAN CATCH Result Comment: Canc elled via OM: MD Ordered Performed By: #### L 501.9100, L505.5000 #### [facility] [address] [place], [address] WBC Normal 0-5 [facility] Comment on above: Order Comment: CLEAN CATCH Result Comment: Canc elled via OM: MD Ordered Performed By: #### L 501.9100, L505.5000 #### [facility] [address] [place], [address] Urine Drug Screen (VISTA)on 03-02-2022 AMPHETAMINES Normal <1000 ng/mL [facility] Comment on above: Result Comment: Canc elled via OM: MD Ordered Performed By: #### L 501.9100, L505.5000 #### [facility] [address] [place], [address] BARBITIURATES Normal < 200 ng/mL [facility] Comment on above: Result Comment: Canc elled via OM: MD Ordered Performed By: #### L 501.9100, L505.5000 #### [facility] [address] [place], [address] BENZODIAZIPINE Normal < 200 ng/mL [facility] Comment on above: Result Comment: Canc elled via OM: MD Ordered Performed By: #### L 501.9100, L505.5000 #### [facility] [address] [place], [address] COCAINE Normal < 300 ng/mL [facility] Comment on above: Result Comment: Canc elled via OM: MD Ordered Performed By: #### L 501.9100, L505.5000 #### [facility] [address] [place], [address] DRUG CONFIRM Normal [facility] Comment on above: Result Comment: Canc elled via OM: MD Ordered Performed By: #### L 501.9100, L505.5000 #### [facility] [address] [place], [address] ECSTACY Normal < 500 ng/mL [facility] Comment on above: Result Comment: Canc elled via OM: MD Ordered Performed By: #### L 501.9100, L505.5000 #### [facility] [address] [place], [address] METHADONE Normal < 300 ng/mL [facility] Comment on above: Result Comment: Canc elled via OM: MD Ordered Performed By: #### L 501.9100, L505.5000 #### [facility] [address] [place], [address] OPIATES Normal < 300 ng/mL [facility] Comment on above: Result Comment: Canc elled via OM: MD Ordered Performed By: #### L 501.9100, L505.5000 #### [facility] [address] [place], [address] PCP Normal < 25 ng/mL [facility] Comment on above: Result Comment: Canc elled via OM: MD Ordered Performed By: #### L 501.9100, L505.5000 #### [facility] [address] [place], [address] THC Normal < 50 ng/mL [facility] Comment on above: Result Comment: Canc elled via OM: MD Ordered Performed By: #### L 501.9100, L505.5000 #### [facility] [address] [place], [address] VISTA UDS PH Normal [facility] Comment on above: Result Comment: Canc elled via OM: MD Ordered Performed By: #### L 501.9100, L505.5000 #### [facility] [address] [place], [address] Abdomen/Pelvis without Conto n 02-20-2022 Abdomen/Pelvis without Cont [facility] Services [address] [place] [address] Abdomen/Pelvis without Cont MR#: [id number] Acct: [id number] Name: BRYAN LUNDBERG Rep #: [id number] : 1995 M 26 From: Ashwini Iqbal PCP: EVELYN Phan Status: REG ER Study: Abdomen/Pelvis without Cont Date of Exam: 01/23 12/13 Exam# [id number] Ordering Dr: Chrissy Kramer MD STUDY: CT [...] CC: EVELYN Nicholson; Dr. Chrissy Kramer MD Instructor Of Spanish: Signed Normal [facility] Basic Metabolic Profile (BMP )on 02-20-2022 BUN/CRE 10.7 RATIO Normal 01-10 [facility] Comment on above: Performed By: #### L 100.0100, L500.2500, L500.3400, L501.2450 #### [facility] [address] [place], [address] CA,Total 10.3 mg/dL High 8.5-10.1 [facility] Comment on above: Performed By: #### L 100.0100, L500.2500, L500.3400, L501.2450 #### [facility] [address] [place], [address] Chloride [Moles/Vol] 90 mmol/L Low 98-107 [facility] Comment on above: Performed By: #### L 100.0100, L500.2500, L500.3400, L501.2450 #### [facility] [address] [place], [address] CO2 [Moles/Vol] 26.0 mmol/L Normal 21.0-32.0 [facility] Comment on above: Performed By: #### L 100.0100, L500.2500, L500.3400, L501.2450 #### [facility] [address] [place], [address] Creatinine [Mass/Vol] 4.31 mg/dL High 0.70-1.[address] [facility] Comment on above: Result Comment: The validity of the calculated GFR GFRAA in patients over 70 years has not been determined. Clinical correlation is essential. Performed By: #### L 100.0100, L500.2500, L500.3400, L501.2450 #### [facility] [address] [place], [address] ECRCL 24.39 ml/min Normal [facility] Comment on above: Performed By: #### L 100.0100, L500.2500, L500.3400, L501.2450 #### [facility] [address] [place], [address] EST GFR - AA 22 mL/min Low >60 [facility] Comment on above: Result Comment: Afri can Somali GFR Calc Performed By: #### L 100.0100, L500.2500, L500.3400, L501.2450 #### [facility] [address] [place], [address] GAP 17 High 5-15 [facility] Comment on above: Performed By: #### L 100.0100, L500.2500, L500.3400, L501.2450 #### [facility] [address] [place], [address] GFR/1.73 sq M.predicted among non-blacks MDRD (S/P/Bld) [Vol rate/Area] 18 mL/min/{1.73_m2} Low >60 [facility] Comment on above: Result Comment: Non- GFR Calc Performed By: #### L 100.0100, L500.2500, L500.3400, L501.2450 #### [facility] [address] [place], [address] Glucose [Mass/Vol] 111 mg/dL High 74-106 [facility] Comment on above: Result Comment: Fast ing Glucose result from 100 to 125 mg/dL suggests IMPAIRED HOMEOSTASIS per A.D.A. criteria. Performed By: #### L 100.0100, L500.2500, L500.3400, L501.2450 #### [facility] [address] [place], [address] Potassium [Moles/Vol] 4.2 mmol/L Normal 3.5-5.[address] [facility] Comment on above: Performed By: #### L 100.0100, L500.2500, L500.3400, L501.2450 #### [facility] [address] [place], [address] Sodium [Moles/Vol] 133 mmol/L Low 136-145 [facility] Comment on above: Performed By: #### L 100.0100, L500.2500, L500.3400, L501.2450 #### [facility] [address] [place], [address] Urea nitrogen [Mass/Vol] 46 mg/dL High 7-18 [facility] Comment on above: Performed By: #### L 100.0100, L500.2500, L500.3400, L501.2450 #### [facility] [address] [place], [address] CBC W/Diff, Automatedon -3 PATH REV Reviewed Normal [facility] Comment on above: Result Comment: Neut rophilic leukocytosis. Mild Thrombocytosis. Clinical correlation suggested. Aaron Oliveira D.O. 02/20/22 AMENDED REPORT 02/20/22 1221 PATH REV previously reported as: Lidia tapia Performed By: #### L 100.0100, L500.2500, L500.3400, L501.2450 #### [facility] [address] [place], [address] Emergency Department Summary on 02-20-2022 Emergency Department Summary [facility] Medical Records Department [address] [place] [address] Emergency Department Summary 02/19/22 MR#: [id number] Acct: [id number] Name: TAMIKABRYAN Rep #: [id number] : 1995 26 From: Chrissy Kramer MD [...] 75.6 H Lymph % (Auto) 14.5 L [place] % (Auto) 9.1 Eos % (Auto) 0.1 [...] Calcium 10 (more content not included)... Normal [facility] Lipaseon 02-20-2022 Lipase [Catalytic activity/Vol] 215 U/L Normal 73-393 [facility] Comment on above: Performed By: #### L 501.9100, L505.5000 #### [facility] [address] [place], [address] Liver Profileon 02-20-2022 Albumin [Mass/Vol] 6.0 g/dL High 3.2-5.0 [facility] Comment on above: Performed By: #### L 501.9100, L505.5000 #### [facility] [address] [place], [address] ALK P 137 U/L High 45-117 [facility] Comment on above: Performed By: #### L 501.9100, L505.5000 #### [facility] [address] [place], [address] ALT [Catalytic activity/Vol] 33 U/L Normal 16-61 [facility] Comment on above: Performed By: #### L 501.9100, L505.5000 #### [facility] [address] [place], [address] AST [Catalytic activity/Vol] 35 U/L Normal 15-37 [facility] Comment on above: Performed By: #### L 501.9100, L505.5000 #### [facility] [address] [place], [address] Bilirubin [Mass/Vol] 1.70 mg/dL High 0.20-1.00 [facility] Comment on above: Result Comment: For patients on eltrombopag therapy, use of Dimension Raymond TBIL is not recommended. Performed By: #### L 501.9100, L505.5000 #### [facility] [address] [place], [address] Bilirubin.direct [Mass/Vol] 0.29 mg/dL Normal 0.00-0.30 [facility] Comment on above: Performed By: #### L 501.9100, L505.5000 #### [facility] [address] [place], [address] Globulin (S) [Mass/Vol] 4.5 g/dL High 2.2-4.2 [facility] Comment on above: Performed By: #### L 501.9100, L505.5000 #### [facility] [address] [place], [address] T PROT 10.5 g/dL High 6.4-8.2 [facility] Comment on above: Performed By: #### L 501.9100, L505.5000 #### [facility] [address] [place], [address] Absolute lymphocyte countOrd ered By: Dr. Kramer on 02-19-2022 Lymphocytes Auto (Unsp spec) [#/Vol] 2.43 10*3/uL 0.83-4.51 [facility] Basophil percentageOrdered B y: Dr. Kramer on 02-19-2022 Basophils/100 WBC (Bld) 0.2 % 0-1 [facility] Bilirubin [Mass/Vol] 1.70 mg/dL 0.20-1.00 [facility] Comment on above: For patients on eltr ombopag therapy, use of Dimension Raymond TBIL is not recommended. Chloride [Moles/Vol] 90 mmol/L 98-107 [facility] Eosinophils/100 WBC (Bld) 0.1 % 0-5 [facility] Glucose [Mass/Vol] 111 mg/dL 74-106 [facility] Comment on above: Fasting Glucose resu lt from 100 to 125 mg/dL suggests IMPAIRED HOMEOSTASIS per A.D.A. criteria. Neutrophils (Bld) [#/Vol] 12.7 10*3/uL 2.0-7.7 [facility] Neutrophils/100 WBC (Bld) 75.6 % 47-70 [facility] Potassium [Moles/Vol] 4.2 mmol/L 3.5-5.[address] [facility] Protein [Mass/Vol] 10.5 g/dL 6.4-8.2 [facility] Sodium [Moles/Vol] 133 mmol/L 136-145 [facility] WBC (Bld) [#/Vol] 16.8 10*3/uL 4.4-11.0 [facility] Blood erythrocytes count (nu mber/volume)Ordered By: Dr. Kramer on 02-19-2022 RBC (Bld) [#/Vol] 6.49 10*6/uL 4.6-6.2 [facility] Blood hemoglobin measurement (mass/volume)Ordered By: Dr. Kramer on 02-19-2022 Hemoglobin (Bld) [Mass/Vol] 18.2 g/dL 13.0-16.5 [facility] Comment on above: CRITICAL VALUE VERIF IED. CALLED TO [id number] Cindi Wallace.RESULTS READ BACK BY SAME . Blood lymphocytes/100 leukoc ytesOrdered By: Dr. Kramer on 02-19-2022 Lymphocytes/100 WBC (Bld) 14.5 % 19-41 [facility] Blood manual differential co mment interpretation (narrative result)Ordered By: Dr. Kramer on 02-19-2022 Manual differential comment Stephane (Bld) [Interp] SCANNED [facility] Comment on above: MONOCYTOSIS NOTED Blood monocytes/100 leukocyt esOrdered By: Dr. Kramer on 02-19-2022 Monocytes/100 WBC (Bld) 9.1 % 0-10 [facility] Blood platelet mean volumeOr dered By: Dr. Kramer on 02-19-2022 Platelet mean volume (Bld) [Entitic vol] 9.2 fL 6.2-12.0 [facility] Determination of erythrocyte mean corpuscular volume (MCV)Ordered By: Dr. Kramer on 02-19-2022 MCV (RBC) [Entitic vol] 80.7 fL 80-94 [facility] Direct bilirubinOrdered By: Dr. Kramer on 02-19-2022 Bilirubin.direct [Mass/Vol] 0.29 mg/dL 0.00-0.30 [facility] Hematocrit Auto (Bld) [Volum e fraction]Ordered By: Dr. Kramer on 02-19-2022 Hematocrit (Bld) [Volume fraction] 52.4 % 40-54 [facility] - Chemistry and C hemistry - challengeOrdered By: Dr. Kramer on 02-19-2022 ALP [Catalytic activity/Vol] 137 U/L 45-117 [facility] ALT [Catalytic activity/Vol] 33 U/L 16-61 [facility] CO2 [Moles/Vol] 26.0 mmol/L 21.0-32.0 [facility] Globulin (S) [Mass/Vol] 4.5 g/dL 2.2-4.2 [facility] Lipase [Catalytic activity/Vol] 215 U/L 73-393 [facility] Urea nitrogen/Creatinine [Mass ratio] 10.7 mg/mg 10-20 [facility] - Hematology and Cell countsOrdered By: Dr. Kramer on 02-19-2022 Erythrocyte distribution width (RBC) [Entitic vol] 39.6 fL 35.1-43.9 [facility] Erythrocyte distribution width (RBC) [Ratio] 13.9 % 11.6-14.6 [facility] Immature granulocytes/100 WBC (Bld) 0.500 % 0.0-0.9 [facility] Comment on above: IG% - Immature Granu locytes (promyelocytes, myelocytes and metamyelocytes) > 1% indicates that a LEFT SHIFT is Present. MCH (RBC) [Entitic mass] 28.0 pg 27.0-32.0 [facility] Nucleated RBC/100 WBC (Bld) [Ratio] 0 % 0-5 [facility] MCHC Auto (RBC) [Mass/Vol]Or dered By: Dr. Kramer on 02-19-2022 MCHC (RBC) [Mass/Vol] 34.7 g/dL 32-[address] [facility] No Panel InformationOrdered By: Dr. Kramer on 02-19-2022 Estimated Creatinine Clearance Calc 24.39 ml/min [facility] Estimated GFR (MDRD) Amer 22 mL/min >60 [facility] Comment on above: GFR Calc Estimated GFR (MDRD) Non-Af Amer 18 mL/min >60 [facility] Comment on above: Non- GFR Calc Platelets bldOrdered By: Dr. Kramer on 02-19-2022 Platelets (Bld) [#/Vol] 482 10*3/uL 150-450 [facility] Review by pathologiston 01-23 Pathologist review Stephane (Unsp spec) [Interp] Lidia tapia [facility] Work Phone: Review by pathologistOrdered By: Dr. Kramer on 02-19-2022 Pathologist review Stephane (Unsp spec) [Interp] Reviewed [facility] Comment on above: Previous reported re sult: Lidia willie Edited by: RGOKEIRA on 02/20/22:1221Neutrophilic leukocytosis.Mild Thrombocytosis.Clinical correlation suggested.Aaron Oliveira D.O. 02/20/22 AMENDED REPORT 02/20/22 1221 PATH REV previously reported as: Lidia tapia Serum or plasma albumin maritza urement (mass/volume)Ordered By: Dr. Kramer on 02-19-2022 Albumin [Mass/Vol] 6.0 g/dL 3.2-5.0 [facility] Serum or plasma calcium maritza urement (mass/volume)Ordered By: Dr. Kramer on 02-19-2022 Calcium [Mass/Vol] 10.3 mg/dL 8.5-10.1 [facility] Serum or plasma creatinine m easurement (mass/volume)Ordered By: Dr. Kramer on 02-19-2022 Creatinine [Mass/Vol] 4.31 mg/dL 0.70-1.[address] [facility] Comment on above: The validity of the calculated GFR & GFRAA in patients over 70 years has not been determined. Clinical correlation is essential. Serum or plasma urea nitroge n measurement (mass/volume)Ordered By: Dr. Kramer on 02-19-2022 Urea nitrogen [Mass/Vol] 46 mg/dL 7-18 [facility] Thin prep Papanicolaou smear with manual screeningOrdered By: Dr. Kramer on 02-19-2022 Thin prep Papanicolaou smear with manual screening 35 U/L 15-37 [facility] Thin prep Papanicolaou smear with manual screening 17 5-15 [facility] Vital Signs Date Time Vital Sign Value Performing Clinician Facility 05-02-2023 18:03-0500 Body temperature 97.7 [degF] Minor Ghosh MORTGAGE PROCESSING CLERK.BETTING CLERKS Work Phone: [facility] 05-02-2023 18:03-0500 Body weight 79.83 kg Minor Ghosh MORTGAGE PROCESSING CLERK.BETTING CLERKS Work Phone: [facility] 05-02-2023 18:03-0500 Diastolic blood pressure 96 mm[Hg] Minor Ghosh MORTGAGE PROCESSING CLERK.BETTING CLERKS Work Phone: [facility] 05-02-2023 18:03-0500 Heart rate 121 /min Minor Ghosh MORTGAGE PROCESSING CLERK.BETTING CLERKS Work Phone: [facility] 05-02-2023 18:03-0500 Respiratory rate 20 /min Minor Ghosh MORTGAGE PROCESSING CLERK.BETTING CLERKS Work Phone: [facility] 05-02-2023 18:03-0500 SaO2% (BldA) [Mass fraction] 98 % Minor Ghosh MORTGAGE PROCESSING CLERK.BETTING CLERKS Work Phone: [facility] 05-02-2023 18:03-0500 Systolic blood pressure 134 mm[Hg] Minor Ghosh MORTGAGE PROCESSING CLERK.BETTING CLERKS Work Phone: [facility] 11-04-2022 13:38-0400 Body weight 79.83 kg NA Nicholson PA-C Work Phone: [facility] 11-04-2022 13:38-0400 Diastolic blood pressure 68 mm[Hg] NA Nicholson PA-C Work Phone: [facility] 11-04-2022 13:38-0400 Heart rate 98 /min NA Nicholson PA-C Work Phone: [facility] 11-04-2022 13:38-0400 Respiratory rate 18 /min NA Nicholson PA-C Work Phone: [facility] 11-04-2022 13:38-0400 SaO2% (BldA) [Mass fraction] 96 % NA Nicholson PA-C Work Phone: [facility] 11-04-2022 13:38-0400 Systolic blood pressure 132 mm[Hg] NA Nicholson PA-C Work Phone: [facility] 09-17-2022 13:45-0400 Body temperature 99.7 [degF] PA NA Nicholson PA Work Phone: [facility] 09-17-2022 13:45-0400 Diastolic blood pressure 76 mm[Hg] PA NA Nicholson PA Work Phone: [facility] 09-17-2022 13:45-0400 Heart rate 79 /min PA NA Nicholson PA Work Phone: [facility] 09-17-2022 13:45-0400 Respiratory rate 18 /min PA NA Nicholson PA Work Phone: [facility] 09-17-2022 13:45-0400 SaO2% (BldA) [Mass fraction] 97 % PA NA Nicholson PA Work Phone: [facility] 09-17-2022 13:45-0400 Systolic blood pressure 132 mm[Hg] PA NA Nicholson PA Work Phone: [facility] 09-15-2022 11:08-0400 Body height 187.96 cm PA NA Nicholson PA Work Phone: [facility] 09-15-2022 11:08-0400 Body weight 76.2 kg PA NA Nicholson PA Work Phone: [facility] 09-15-2022 00:03-0400 Body height 187.96 cm [facility] 09-15-2022 00:03-0400 Body mass index (BMI) [Ratio] 21.5 kg/m2 [facility] 09-15-2022 00:03-0400 Body weight 76.2 kg [facility] 09-14-2022 23:53-0400 Body temperature 98.5 [degF] [facility] 09-14-2022 23:53-0400 Diastolic blood pressure 91 mm[Hg] [facility] 09-14-2022 23:53-0400 Heart rate 94 /min [facility] 09-14-2022 23:53-0400 Respiratory rate 16 /min [facility] 09-14-2022 23:53-0400 SaO2% (BldA) [Mass fraction] 98 % [facility] 09-14-2022 23:53-0400 Systolic blood pressure 138 mm[Hg] [facility] 05-01-2022 22:44-0500 Diastolic blood pressure 94 mm[Hg] PA NA Nicholson PA Work Phone: 0(644)647-928262 [place] [address] 05-01-2022 22:44-0500 Heart rate 110 /min PA NA Nicholson PA Work Phone: 3(384)282-401828 [place] [address] 05-01-2022 22:44-0500 SaO2% (BldA) [Mass fraction] 98 % PA NA Nicholson PA Work Phone: 7(874)331-091328 [place] [address] 05-01-2022 22:44-0500 Systolic blood pressure 134 mm[Hg] PA NA Nicholson PA Work Phone: [facility] 05-01-2022 18:55-0500 Body height 187.96 cm PA NA Nicholson PA Work Phone: 9(643)382-498828 [place] [address] 05-01-2022 18:55-0500 Body mass index (BMI) [Ratio] 21.2 kg/m2 PA NA Nicholson PA Work Phone: 4(528)304-528928 [place] [address] 05-01-2022 18:55-0500 Body temperature 97.4 [degF] PA NA Nicholson PA Work Phone: 6(722)337-626728 [place] [address] 05-01-2022 18:55-0500 Body weight 74.84 kg PA NA Nicholson PA Work Phone: [facility] 05-01-2022 18:55-0500 Respiratory rate 24 /min PA NA Nicholson PA Work Phone: [facility] 04-25-2022 11:30-0500 Body temperature 97.7 [degF] PA NA Nicholson PA Work Phone: [facility] 04-25-2022 11:30-0500 Diastolic blood pressure 85 mm[Hg] PA NA Nicholson PA Work Phone: 0(502)813-765928 [place] [address] 04-25-2022 11:30-0500 Heart rate 97 /min PA NA Nicholson PA Work Phone: 2(166)321-114128 [place] [address] 04-25-2022 11:30-0500 Respiratory rate 18 /min PA NA Nicholson PA Work Phone: 7(318)898-962707 [place] [address] 04-25-2022 11:30-0500 SaO2% (BldA) [Mass fraction] 97 % PA NA Nicholson PA Work Phone: 1(300)095-367628 [place] [address] 04-25-2022 11:30-0500 Systolic blood pressure 119 mm[Hg] PA NA Nicholson PA Work Phone: 5(119)472-727928 [place] [address] 04-24-2022 14:31-0500 Body height 187.96 cm PA NA Nicholson PA Work Phone: 3(030)041-953407 [place] [address] 04-24-2022 14:31-0500 Body weight 68.94 kg PA NA Nicholson PA Work Phone: 3(850)117-240607 [place] [address] 04-23-2022 23:52-0500 Body mass index (BMI) [Ratio] 19.5 kg/m2 PA NA Nicholson PA Work Phone: 8(481)552-102607 [place] [address] 04-23-2022 23:42-0500 Body temperature 98 [degF] PA NA Nicholson PA Work Phone: 5(035)752-030007 [place] [address] 04-23-2022 23:42-0500 Diastolic blood pressure 95 mm[Hg] PA NA Nicholson PA Work Phone: 7(247)925-018207 [place] [address] 04-23-2022 23:42-0500 Heart rate 86 /min PA NA Nicholson PA Work Phone: 5(884)916-410207 [place] [address] 04-23-2022 23:42-0500 Respiratory rate 18 /min PA NA Nicholson PA Work Phone: 4(332)904-068728 [place] [address] 04-23-2022 23:42-0500 SaO2% (BldA) [Mass fraction] 100 % PA NA Nicholson PA Work Phone: [facility] 04-23-2022 23:42-0500 Systolic blood pressure 159 mm[Hg] PA NA Nicholson PA Work Phone: [facility] 04-23-2022 18:52-0500 Body height 185.42 cm PA NA Nicholson PA Work Phone: [facility] 04-23-2022 18:52-0500 Body mass index (BMI) [Ratio] 20.6 kg/m2 PA NA Nicholson PA Work Phone: [facility] 04-23-2022 18:52-0500 Body weight 70.9 kg PA NA Nicholson PA Work Phone: [facility] 03-02-2022 09:22-0500 Diastolic blood pressure 90 mm[Hg] [facility] 03-02-2022 09:22-0500 Heart rate 105 /min [facility] 03-02-2022 09:22-0500 Respiratory rate 16 /min [facility] 03-02-2022 09:22-0500 SaO2% (BldA) [Mass fraction] 98 % [facility] 03-02-2022 09:22-0500 Systolic blood pressure 138 mm[Hg] [facility] 03-02-2022 08:02-0500 Body temperature 98.7 [degF] [facility] 03-02-2022 08:01-0500 Body height 185.42 cm [facility] Work Phone: 03-02-2022 08:01-0500 Body mass index (BMI) [Ratio] 21.7 kg/m2 [facility] 03-02-2022 08:01-0500 Body weight 74.84 kg [facility] 02-19-2022 20:08-0500 Body height 185.42 cm [facility] Work Phone: 02-19-2022 20:08-0500 Body mass index (BMI) [Ratio] 19.3 kg/m2 [facility] 02-19-2022 20:08-0500 Body temperature 97.5 [degF] [facility] 02-19-2022 20:08-0500 Body weight 66.39 kg [facility] 02-19-2022 20:08-0500 Diastolic blood pressure 94 mm[Hg] [facility] 02-19-2022 20:08-0500 Heart rate 64 /min [facility] 02-19-2022 20:08-0500 Respiratory rate 16 /min [facility] 02-19-2022 20:08-0500 SaO2% (BldA) [Mass fraction] 98 % [facility] 02-19-2022 20:08-0500 Systolic blood pressure 137 mm[Hg] [facility] 06-28-2021 16:35-0400 Body temperature 98.01 [degF] NA Nicholson PA-C Work Phone: [facility] 06-28-2021 16:35-0400 Body weight 80.29 kg NA Nicholson PA-C Work Phone: [facility] 06-28-2021 16:35-0400 Diastolic blood pressure 60 mm[Hg] NA Nicholson PA-C Work Phone: [facility] 06-28-2021 16:35-0400 Heart rate 86 /min NA Nicholson PA-C Work Phone: [facility] 06-28-2021 16:35-0400 Respiratory rate 18 /min NA Nicholson PA-C Work Phone: [facility] 06-28-2021 16:35-0400 Systolic blood pressure 118 mm[Hg] NA Nicholson PA-C Work Phone: [facility] Encounters Encounter Date Encounter Type Care Provider Facility Start: 05-02-2023 End: 05-02-2023 ambulatory Stacy NICHOLSON Facility:[facility] Start: 05-02-2023 End: 05-02-2023 Patient encounter procedure Minor Ghosh MORTGAGE PROCESSING CLERK.BETTING CLERKS Work Phone: [facility] Comment on above: Pain, dental (Primar y Dx) Start: 12-27-2022 ambulatory Stacy Amaya ty:[facility] Start: 12-27-2022 End: 12-28-2022 Evaluation and management of inpatient Yudelka Hernandez Facility:[facility] Start: 11-04-2022 End: 11-05-2022 ambulatory Stacy NICHOLSON Facility:[facility] Start: 11-04-2022 End: 11-04-2022 Patient encounter procedure Stacy Nicholson PA-C Work Phone: [facility] Comment on above: Heroin abuse (HCC) ( Primary Dx); Generalized anxiety disorder Start: 09-16-2022 Non-patient / Non-visit PA CHAY Dickinsonon PA Work Phone: [facility] Start: 09-15-2022 Non-patient / Non-visit PA NA Nicholson PA Work Phone: [facility] Start: 09-15-2022 ambulatory [place] Elias y:[facility] Start: 09-15-2022 End: 09-17-2022 Evaluation and management of inpatient Xander Olivera Facility:[facility] Start: 09-15-2022 End: 09-17-2022 Evaluation and management of inpatient [facility] 3 Start: 05-23-2022 End: 05-24-2022 ambulatory Stacy NICHOLSON Facility:[facility] Start: 05-01-2022 End: 05-02-2022 Emergency department patient visit Stacy Nicholson Facility:[facility] Start: 05-01-2022 End: 05-02-2022 Emergency department patient visit PA CHAY Nicholson PA Work Phone: [facility]Emergency [facility] Start: 04-25-2022 Non-patient / Non-visit PA NA Nicholson PA Work Phone: [facility] Start: 04-24-2022 Non-patient / Non-visit PA NA Nicholson PA Work Phone: [facility] Start: 04-24-2022 ambulatory Stacy Amaya ty:[facility] Start: 04-24-2022 End: 04-25-2022 Evaluation and management of inpatient Buffalo Candis Facility:[facility] Start: 04-23-2022 Non-patient / Non-visit EVELYN RIVSA Work Phone: [facility] Start: 04-23-2022 End: 04-25-2022 Evaluation and management of inpatient PA CHAY RIVAS Work Phone: [facility] Start: 03-02-2022 End: 03-02-2022 Emergency department patient visit [place] Danielsongermania Facility:[facility] Start: 03-02-2022 End: 03-02-2022 Emergency department patient visit [facility] Start: 02-19-2022 End: 02-20-2022 Emergency department patient visit Chrissygertrude Kramer Facility:[facility] Start: 02-19-2022 End: 02-20-2022 Emergency department patient visit [facility] Start: 06-28-2021 End: 06-28-2021 Patient encounter procedure M Wilson Nicholson PA-C Work Phone: [facility] Comment on above: Adjustment disorder with mixed [...] Detail Author Start: 11-05-2023 ANNUAL PCP TEAM BLACK TOP MACHINE OPERATOR JOE DISEASE VISIT ANNUAL PCP TEAM CHRONIC DISEASE VISIT [facility] Start: 11-05-2023 COVID-19 VACCINE (#1) COVID-19 VACCI NE (#1) [facility] Comment on above: Postponed from 04/17 (Declined at this time) Start: 03-24-2023 Depression Assessment Depression Ass essment [facility] Start: 11-22-2022 Influenza vaccination [facility] Start: 09-17-2022 Patient discharge [facility] Start: 09-16-2022 [facility] Start: 09-15-2022 Assessment using assessment scale [facility] Start: 09-15-2022 Ambulation without limitation [facility] Start: 09-15-2022 Assessment of risk o f venous thromboembolism [facility] Start: 09-15-2022 Insertion of cathete r into peripheral vein [facility] Start: 09-15-2022 Oxygen therapy [facility] Start: 09-15-2022 Providing care accor ding to standard [facility] Start: 09-15-2022 Referral to service [facility] Start: 09-15-2022 End: 09-15-2022 [facility] Start: 09-15-2022 Verification routine [facility] Start: 09-15-2022 Admission procedure 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 VISIT ANNUAL PCP TEAM CHRONIC DISEASE VISIT [facility] Start: 04-25-2022 Patient discharge [facility] Start: 04-24-2022 Assessment using assessment scale [facility] Start: 04-24-2022 [facility] Start: 04-24-2022 Following clinical p athway protocol [facility] Start: 04-23-2022 Assessment of risk o f venous thromboembolism [facility] Start: 04-23-2022 Notification of physician [facility] Start: 04-23-2022 Providing care accor ding to standard [facility] Start: 04-23-2022 Provision of activit y privileges [facility] Start: 04-23-2022 Vital signs measurements [facility] Start: 04-23-2022 [facility] Start: 04-23-2022 Admission procedure [facility] Start: 04-23-2022 Patient referral to dietitian [facility] Start: 03-24-2022 DEPRESSION ASSESSMENT DEPRESSION ASS ESSMENT [facility] Start: 11-22-2021 Influenza vaccination INFLUENZ A (Season Ended) [facility] Start: 01-06-2019 Adult depression scr eening assessment DEPRESSION SCREENING [facility] Start: 08-26-2017 Urine microalbumin profile [facility] Start: 10-15-2014 ONE PNEUMOVAX PRIOR TO AGE 65 ONE PNEUMOVAX PRIOR TO AGE 65 [facility] Start: 10-15-2013 HEPATITIS C SCREENING HEPATITIS C SC REENING [facility] Start: 10-15-2013 HIV SCREENING HIV SCREENING [facility] Start: 10-15-2013 SPIROMETRY SPIROMETRY [facility] Start: 10-15-2009 PEDS TO ADULT TRANSI TION ANNUAL ASSESSMENT PEDS TO ADULT TRANSITION ANNUAL ASSESSMENT [facility] Start: 2007 PEDS TO ADULT TRANSI TION INITIAL DISCUSSION PEDS TO ADULT TRANSITION INITIAL DISCUSSION [facility] Start: 10-15-2006 HPV VACCINE (1 - Mal e 2-dose series) HPV VACCINE (1 - Male 2-dose series) [facility] Start: 10-15-2001 PNEUMOCOCCAL (1 - PCV) PNEUMOCOCCAL (1 - PCV) [facility] Start: 10-15-2001 Pneumococcal vaccination Pneum ococcal Vaccine (1 of 2 - PCV) [facility] Start: 10-15-2000 COVID-19 VACCINE (1) COVID-19 VACCIN E (1) [facility] Patient Education [facility] Work Phone: Patient referral [facility] Work Phone: [facility] Immunizations Immunization Date Immunization Notes Care Provider Brandon nguyen 01-06-2018 influenza virus vacc ine, unspecified formulation Minor Ghosh MORTGAGE PROCESSING CLERK.BETTING CLERKS Work Phone: [facility] 01-25-2014 meningococcal polysaccharide (groups A, C, Y and W-135) diphtheria toxoid conjugate vaccine (MCV4P) CHAY Nicholson PA-C Work Phone: [facility] Work Phone: 10-20-2008 hepatitis A vaccine, unspecified formulation CHAY RIVAS-Monika Work Phone: [facility] Work Phone: 08-27-2007 Meningococcal, MCV4, unspecified conjugate formulation(groups A, C, Y and W-135) Nicholson PA-C Work Phone: [facility] Work Phone: 08-27-2007 tetanus toxoid, redu chuck diphtheria toxoid, and acellular pertussis vaccine, adsorbed Nicholson PA-C Work Phone: [facility] Work Phone: 02-09-2007 influenza virus vacc ine, unspecified formulation NA Nicholson PA-C Work Phone: [facility] Work Phone: 03-04-2003 influenza virus vacc ine, unspecified formulation [facility] Work Phone: [facility] Work Phone: 12-25-2000 diphtheria, tetanus toxoids and acellular pertussis vaccine [facility] PA-C Work Phone: [facility] Work Phone: 12-25-2000 measles, mumps and rubella virus vaccine NA Nicholson PA-C Work Phone: [facility] Work Phone: 12-25-2000 poliovirus vaccine, inactivated [facility]- Work Phone: [facility] Work Phone: 02-20-2000 pneumococcal conjuga te vaccine, 7 valent [facility]-C Work Phone: [facility] Work Phone: 04-24-1999 Chicken Pox (disease) Nickolas thornton [place]-C Work Phone: [facility] Work Phone: 02-09-1997 diphtheria, tetanus toxoids and acellular pertussis vaccine NA Nicholson PA-C Work Phone: [facility] Work Phone: 02-09-1997 haemophilus influenz ae type b vaccine, PRP-D conjugate Nicholson PA-C Work Phone: [facility] Work Phone: 02-09-1997 varicella virus vaccine NA B arton PA-C Work Phone: [facility] Work Phone: 10-28-1996 measles, mumps and rubella virus vaccine NA Nicholson PA-C Work Phone: [facility] Work Phone: 10-28-1996 trivalent poliovirus vaccine, live, oral NA Nicholson PA-C Work Phone: [facility] Work Phone: 06-17-1996 DTP-Haemophilus influenzae type b conjugate vaccine Minor Ghosh APRN.BETTING CLERKS Work Phone: [facility] Work Phone: 06-17-1996 hepatitis B vaccine, pediatric or pediatric/adolescent dosage NA Nicholson PA-C Work Phone: [facility] Work Phone: 06-17-1996 Tetramune NA Nicholson PA-C Work Phone: [facility] Work Phone: 02-17-1996 DTP-Haemophilus influenzae type b conjugate vaccine Minor Ghosh MORTGAGE PROCESSING CLERK.BETTING CLERKS Work Phone: [facility] Work Phone: 02-17-1996 poliovirus vaccine, inactivated NA Nicholson PA-C Work Phone: [facility] Work Phone: 02-17-1996 Tetramune NA Nicholson PA-C Work Phone: [facility] Work Phone: 1995 DTP-Haemophilus influenzae type b conjugate vaccine Minor Ghosh APRN.BETTING CLERKS Work Phone: [facility] Work Phone: 1995 hepatitis B vaccine, pediatric or pediatric/adolescent dosage NA Nicholson PA-C Work Phone: [facility] Work Phone: 1995 poliovirus vaccine, inactivated NA Nicholson PA-Monika Work Phone: [facility] Work Phone: 1995 Tetramune CHAY Nicholson PA-C Work Phone: [facility] Work Phone: 1995 hepatitis B vaccine, pediatric or pediatric/adolescent dosage CHAY Nicholson PA-C Work Phone: [facility] Work Phone: Payers Date Payer Category Payer Medicaid [facility] [id number] 2022-Present [phone] [address] [place] [address] Medicaid [id number] 2022 Medicaid [id number] 2022 Self-pay [id number] 2010 Unknown ANTHEM BLUE CARD PPO OOS [id number] 2010-Present [phone] [address] [place] [address] PPO [id number] Unknown ANTHEM [id number] Unknown [id number] Unknown [id number] Unknown [id number] Unknown [id number] Unknown [id number] Unknown [id number] Unknown [id number] Unknown [id number] Unknown [id number] Unknown [id number] Unknown [id number] Unknown [id number] Unknown [id number] Unknown [id number] Unknown [id number] Social History Date Type Detail Facility Start: 11-04-2022 [facility] Start: 06-28-2021 End: 05-02-2023 Alcohol intake Current non-drinker of alcohol (finding) [facility] Start: 01-06-2018 End: 11-04-2022 Tobacco Comment vapes [facility] Start: 1995 Sex Assigned At Not on file [facility] Start: 06-18-2021 End: 06-28-2021 Exposure to SARS-CoV-2 (event) Not sure [facility] Start: 02-19-2022 End: 09-15-2022 Tobacco smoking status NHIS Unknown if ever smoked [facility] Start: 10-12-2019 None [facility] Start: 05-21-2020 Cigarettes [facility] Start: 1995 Sex Assigned At Male [facility] Start: 11-04-2022 Tobacco use and exposure Smokeless tobacco non-user [facility] Start: 11-04-2022 End: 02-04-2023 History of Social function [facility] Start: 11-04-2022 End: 02-04-2023 Tobacco use panel [facility] Adult Depression Screening Assessment 6 [facility] Goals Date Patient Goal Desired Activity /State Functional Status Date Assessment Result Facility 09-17-2022 Functional status Ambulates;Up a d heather;Chair;Bathroom Privilege;Active [employer] [facility] Work Phone: 04-25-2022 Functional status Chair [facility] Work Phone: Mental Status Date Assessment Result Facility 09-16-2022 Cognitive function Voice/Name [facility] Work Phone: 04-25-2022 Cognitive function Appropriate;Cooperativ e [facility] Work Phone: Clinical Notes 06-28-2021 to 05-02-2023 Minor Ghosh APRN.BETTING CLERKS - 05/02/2023 6:08 PM Stacy Bowser PA-C - 11/04/2022 1:53 PM EDT Note Date & Type Note Facility 05-02-2023 Note HNO ID: [id number] Author: MINOR GHOSH APRN.ROHAN Service: ? Author [...] history is provided by the patient. No macadam raker was used. Dental Problem This is a [...] rhonchi or rales. (more content not included)... [facility] 05-02-2023 History of Present illness Narrative Images [...] history is provided by the patient. No macadam raker was used. Dental Problem This is a [...] allergy F/U with dentist HEAVENLY Minor Ghosh APRN.BETTING CLERKS documented in this encounter [facility] 11-04-2022 Note HNO ID: [id number] Author: Stacy Nicholson PA-C Service: ? Author Type: Physician Entry Level Programmer Type: Progress Notes Filed: 11/04/2022 8:27 PM [...] normal shape. Lungs are clear to all valaedz with good air exchange through out. HRRR [...] dependency. Strongly recommend Naltrexone injections. Patient given [facility] information and he agrees this is [...] the purpose of history context and comparison. [facility] 11-04-2022 History of Present illness Narrative 27 [...] dependency. Strongly recommend Naltrexone injections. Patient given [facility] information and he agrees this is [...] context and comparison. documented in this encounter [facility] 09-18-2022 Note [facility] Medical Records Department [address] [place] [address] Discharge Summary 09/18/22 1907 MR#: [id number] Acct: [id number] Name: BRYAN LUNDBERG Rep #: [id number] : 1995 26 From: Arnol Somers DO PCP: EVELYN Phan Status:DIS IN [facility] Prov[facility] Date of Admission: 09/15/22 Date of Discharge: 09/17/22 Primary Care Physician: EVELYN Phan Reason For Visit: OPIATE DETOX Diagnosis Discharge Diagnosis (1) Opiate addiction: Status: Acute Code(s): F11.20 - Opioid dependence, uncomplicated Plan 1. Acute opiate withdrawal-continue present medications, patient will be seen by addiction social worker masters, he states he wants to do an outpatient treatment program when discharged from the hospital. #2 dehydration-I do not feel the patient needs IV fluids at this time, BUN today was 19 #3 hypokalemia-patient will be given oral potassium, potassium was 3.2 today #4 chronic opioid addiction-patient will be seen by addiction social worker masters tomorrow #5 polysubstance abuse-complicates care, medical course, [...] was seen in the emergency room at [facility] requesting services for opiate detox due to chronic opioid addiction. Patient was admitted to [place] [address], or ders were entered using the opiate detox order set, patient was monitored and he was seen by addicti on social worker masters. Patient stated that he wanted to do [...] Care Charges/Coding Visit Charges Inpatient E M: 45958 Disch Hosp >30min 09/18/22 191 Cosigner Signature (if applicable): CC: Dr. Arnol Somers DO; EVELYN Phan Signed [facility] 09-17-2022 Discharge summary Note Date/Time September 17, 2022 10:43am [facility] Medical Records Department [address] [place] [address] Instructions for Home/Discharge Instructions 09/17/22 1042 MR#: [id number] Acct: [id number] Name: BRYAN LUNDBERG Rep #:[id number] : [...] Nicholson; Dr. Xander Olivera MD ~ Signed [facility] Work Phone: 1(845) 496-286106-26-[address] Dunhamtracy medical centerm[facility] September 16, 2022 7:02pm Note Date/Time September 16, 2022 7:02 pm [facility] Medical Records Department [address] [facility] [place] [address] Progress Note - Hospitalist 09/16/22 190 MR#: [id number] Acct: [id number] Name: BRYAN LUNDBERG Rep #:[id number] : 1995 26 From: Arnol Somers DO PCP: EVELYN Phan Status:ADM I N Location: [place] [address] Reason for Visit Reason for Visit: Diagnoses Opioid dependence, uncomplicated (09/15/22) Tobacco use (09/15/22) Subjective Subjective Patient was seen and examined today, he states he feels better, he met with addiction social worker masters today and will follow-up as an outpatient [...] medications, patient will be seen by addiction social worker masters, he states he wants to do an outpatient treatment program when discharged from the hospital. #2 dehydration-I do not feel the patient needs IV fluids at this time, BUN todaywas 19 #3 hypokalemia-patient will be given oral potassium, potassium was 3.2 today #4 chronic opioid addiction-patient will be seen by addiction social worker masters tomorrow #5 polysubstance abuse-complicates care, medical course, recovery, and prognosis Total clinical time spent by myself addressing the patient's medical issues, reviewing all of his data, and collaborating with his care team: 25 minutes Charges/Coding Visit Charges Inpatient E&M: 45951 Subs Hosp L2 09/16/22 1902 <Electronically signed by Arnol Somers DO> Cosigner Signature (if applicable): CC: ~ Signed [facility] Work Phone: 1(291) 953-844506-25-[address] Somers [facility] September 15, 2022 5:01pm Note Date/Time September 15, 2022 5:01 pm [facility] Medical Records Department [address] [place] [address] Progress Note - Hospitalist 09/15/22 1658 MR#: [id number] Acct: [id number] Name: BRYAN LUNDBERG Rep #:[id number] : 1995 From: Arnol Somers DO PCP: EVELYN Phan Status:ADM I N Location: [place] [address] Reason for Visit Reason for Visit: Diagnoses [...] (Auto) 77.1 H, Lymph % (Auto) 14.1L, Woodford % (Auto) 8.1, Eos % (Auto) 0.1, [...] medications, patient will be seen by addiction social worker masters, he states he wants to do an outpatient treatment program when discharged from the hospital. #2 dehydration-I do not feel the patient needs IV fluids at this time #3 hypokalemia-patient will be given oral potassium #4 chronic opioid addiction-patient will be seen by addiction social worker masters tomorrow #5 polysubstance abuse-complicates care, medical course, recovery, and prognosis Total clinical time spent by myself addressing the patient's medical issues, reviewing all of his data, and collaborating with his care team: 25 minutes Charges/Coding Visit Charges Inpatient E&M: 81769 Subs Hosp L1 09/15/22 1701 <Electronically signed by Arnol Somers DO> Cosigner Signature (if applicable): CC: ~ Signed [facility] Work Phone: [phone]) 362-919906-25-2023 History and physical note Author Dr. Olivera [facility] September 15, 2022 5:13am Note Date/Time September 14, 2022 11:4 0pm [facility] Medical Records Department [address] [place] [address] H&P Exam - Hospitalist 09/14/22 2340 MR#: [id number] Acct: [id number] Name: BRYAN LUNDBERG Rep #:[id number] : 1995 26 From: Xander Olivera MD PCP: EVELYN Phan Status:ADM I N [facility] [facility] [id number] HPI - General General Date of Admission: [...] his body symptoms, and shortness of breath. [facility] Medical History Acute opioid withdrawal Asthma Cannabis [...] (Auto) 77.1 H, Lymph % (Auto) 14.1L, Woodford % (Auto) 8.1, Eos % (Auto) 0.1, [...] to ambulate Charges/Coding Visit Charges Inpatient E&M: 26333 Init Hosp L2 09/15/22 0513 <Electronically signed by Xander Olivera MD> Cosigner Signature (if applicable): CC: EVELYN Nicholson; Dr. Xander Olivera MD~ Signed [facility] Work Phone: 1([phone]) 953-523306-25-[address] Menendez [facility] September 15, 2022 1:01am Note Date/Time September 14, 2022 10:1 0pm [facility] Medical Records Department [address] [place] [address] Emergency Department Summary 09/14/22 MR#: [id number] Acct: [id number] Name: BRYAN LUNDBERG Rep #:[id number] : 1995 26 From: Boston Menendez MD PCP: EVELYN Phan Status:ADM I N [facility] History of Present Illness Chief Complaint: [...] yet but he does feel somewhat dehydrated. [facility] Medical History Acute opioid withdrawal [...] 77.1 H Lymph % (Auto) 14.1 L Woodford % (Auto) 8.1 Eos % (Auto) 0.1 [...] (Auto) Neut % (Auto) Lymph % (Auto) Wood[place] % (Auto) Eos % (Auto) Baso % [...] Stacy Nicholson Disposition Disposition: Acute Care Hospital [facility] What to do if you have Problems For any increased pain, shortness of breath, bleeding, nausea or vomiting, chestpain, or any unexpected problems, contact your Primary Care Provider. Call [facility] ([phone]) or report to the closest Emergency Room. Call 911 if necessary. 09/15/22 0101 <Electronically signed by Boston Menendez MD> Cosigner Signature (if applicable): CC: EVELYN Nicholson ~ Signed [facility] Work Phone: 1(813) 170-525906-25-[address] Menendez [facility] September 15, 2022 1:01am Note Date/Time September 14, 2022 10:1 0pm [facility] Medical Records Department [address] [place] [address] Emergency Department Summary 09/14/22 MR#: [id number] Acct: [id number] Name: BRYAN LUNDBERG Rep #:[id number] : 1995 26 From: Boston Menendez MD PCP: EVELYN Phan Status:ADM I N [facility] H[facility] History of Present Illness Chief Complaint: [...] yet but he does feel somewhat dehydrated. [facility] Medical History Acute opioid withdrawal [...] 77.1 H Lymph % (Auto) 14.1 L [place] % (Auto) 8.1 Eos % (Auto) 0.1 [...] (Auto) Neut % (Auto) Lymph % (Auto) [place] % (Auto) Eos % (Auto) Baso % [...] Stacy Nicholson Disposition Disposition: Acute Care [facility] What to do if you have Problems For any increased pain, shortness of breath, bleeding, nausea or vomiting, chestpain, or any unexpected problems, contact your Primary Care Provider. Call [facility] ([phone]) or report to the closest Emergency Room. Call 911 if necessary. 09/15/22 0101 <Electronically signed by Boston Menendez MD> Cosigner Signature (if applicable): CC: EVELYN Nicholson ~ Signed [facility] Work Phone: [phone]) 993-990202-09-[address] Saucedo [facility] May 02, 2022 12:19am Note Date/Time May 01, 2022 1 0:34pm [facility] Medical Records Department [address] [place] [address] Emergency Department Summary 05/01/22 MR#: [id number] Acct: [id number] Name: BRYAN LUNDBERG Rep #:[id number] : [...] keep his ear. Patient request detox today [facility] Medical History Asthma Tobacco abuse [...] 83.1 H Lymph % (Auto) 6.9 L Woodford % (Auto) 8.2 Eos % (Auto) 0.0 [...] Color Urine Clarity Urine pH Ur Specific [place] Urine Protein Urine Glucose (UA) Urine Ketones [...] (Auto) Neut % (Auto) Lymph % (Auto) [place] % (Auto) Eos % (Auto) Baso % (Auto) Absolute Neuts (auto) Absolute Lymphs (auto) Nucleated RBC % Diff Path Review Sodium Potassium Chloride Carbon Dioxide Anion Gap BUN Creatinine Estim Creat Clear Calc Est GFR (MDRD) Af Amer Est GFR (MDRD) Non-Af BUN/Creatinine Ratio Glucose Calcium Urine Color Yellow Urine Clarity Clear Urine pH 6.0 Ur Specific [place] 1.020 Urine Protein 100 H Urine Glucose [...] problems, contact your Primary Care Provider. Call [employer] [facility] ([phone]) or report to the closest Emergency Room. Call 911 if necessary. 05/02/22 0019 <Electronically signed by Akash Saucedo DO> Cosigner Signature (if applicable): CC: EVELYN Nicholson ~ Signed [facility] Work Phone: 1(502) 254-175502-02-2023 [facility] Medical Records Department [address] [place] [address] Discharge Summary 04/25/22 1213 MR#: [id number] Acct: [id number] Name: BRYAN LUNDBERG Rep #: [id number] : 1995 26 From: Yudelka Hernandez MD PCP: EVELYN Phan Status:DIS IN Location: [facility] [id number] Providers Date of Admission: 04/23/22 Date of [...] with outpatient follow-up. Discussed with 180 addiction senior care specialist Nikko and it was deemed discharge and [...] 04/24/22 14:48 AG (Rec: 04/24/22 14:48 AG [id number]) Nutrition Malnutrition Evidence of Malnutrition Exists Yes [...] % (Auto) 52.5, Lymph % (Auto) 36.6, Woodford % (Auto) 9.0, Eos % (Auto) 1.0, [...] 13:18 EST Reading Location ID and State: [facility] / [place] , Service support , D/C Instructions Discharge Diet: No restrictions Meaningful Use Info Meaningful Use Diagnoses (Choose all that apply): None applicable Discharge Plan Admission Admit Date/Time: 04/23/22 22:22 Primary Reason for Your (more content not included)...[facility] 04-24-[address] Hernandez [facility] April 24, 2022 4:30pm Note Date/Time April 24, 2022 7 :37am [facility] Medical Records Department [address] [place] [address] Progress Note - Hospitalist 04/24/22 0736 MR#: [id number] Acct: [id number] Name: BRYAN LUNDBERG Rep #:[id number] : 1995 26 From: Yudelka Hernandez MD PCP: EVELYN Phan Status:ADM I N Location: [place] [address] Subjective Subjective Reports having some burning abdominal [...] Clarity Clear, Urine pH 6.0, Ur Specific [place]well 1.025, Urine Protein 100 H, Urine Glucose [...] % (Auto) 65.6, Lymph % (Auto) 24.5, Woodford% (Auto) 9.0, Eos % (Auto) 0.3, Baso [...] documentation, 30minutes Charges/Coding Visit Charges Inpatient E&M: 91719 Subs Hosp L2 04/24/22 1630 <Electronically signed by Yudelka Hernandez MD> Cosigner Signature (if applicable): CC: ~ Signed [facility] Work Phone: 1(674) 965-766902-01-2023 History and physical note Author Dr. Chirinos [facility] April 23, 2022 10:52pm Note Date/Time April 23, 2022 1 0:26pm [facility] Medical Records Department [address] [place] [address] H&P Exam - Hospitalist 04/23/226 MR#: [id number] Acct: [id number] Name: TAMIKABRYAN Rep #:[id number] : 1995 26 From: Tory Chirinos MD PCP: EVELYN Phan Status:ADM I N Location: [place] [address] HPI - General General Date of Admission: [...] was positive for amphetamines, ecstasy and cannabinoids. [facility] Medical History Asthma Tobacco abuse Home Medications [...] Clarity Clear, Urine pH 6.0, Ur Specific [place] 1.025, Urine Protein 100 H, Urine Glucose [...] 2 days prior to admission Admit to [facility], start on Subutex withdrawal protocol 2. Polysubstance use, advised to quit 3. Acute kidney injury, patient with admitting creatinine 1.3, previous creatinine 0.77 Patient received IV fluids in the ED; will encourage liberal oral intake Will trend labs in a.m. 4. DVT PPx- Low risk; early ambulation recommended Charges/Coding Visit Charges Inpatient E&M: 48358 Init Hosp L2 04/23/22 2255 <Electronically signed by Tory Chirinos MD> Cosigner Signature (if applicable): CC: EVELYN Nicholson; Dr. Tory Chirinos MD~ Signed [facility] Work Phone: [phone]) 623-364202-01-[address] Cha [facility] April 23, 2022 10:26pm Note Date/Time April 23, 2022 8 :34pm [facility] Medical Records Department [address] [place] [address] Emergency Department Summary 04/23/22 MR#: [id number] Acct: [id number] Name: BRYAN LUNDBERG Rep #:[id number] : [...] similar symptoms: Yes Recent Illness/Hospitalization: No PFSH [facility] Medical History Asthma Tobacco abuse Home Medications [...] Clarity Clear Urine pH 6.0 Ur Specific [place] 1.025 Urine Protein 100 H Urine Glucose [...] Sinus tachycardia Disposition Disposition: Acute Care [facility] What to do if you have Problems For any increased pain, shortness of breath, bleeding, nausea or vomiting, chestpain, or any unexpected problems, contact your Primary Care Provider. Call [facility] ([phone]) or report to the closest Emergency Room. Call 911 if necessary. 04/23/222225 <Electronically signed by Fam Cha MD> Cosigner Signature (if applicable): CC: EVELYN Nicholson ~ Signed [facility] Work Phone: [phone]) 810-502101-31-[address] Cha [facility] April 23, 2022 10:26pm Note Date/Time April 23, 2022 8 :34pm [facility] Medical Records Department [address] [place] [address] Emergency Department Summary 04/23/22 MR#: [id number] Acct: [id number] Name: BRYAN LUNDBERG Rep #:[id number] : [...] Prior similar symptoms: Yes [facility] Asthma Tobacco abuse Home Medications [...] Clarity Clear Urine pH 6.0 Ur Specific [place] 1.025 Urine Protein 100 H Urine Glucose [...] Sinus tachycardia Disposition Disposition: Acute Care [facility] What to do if you have Problems For any increased pain, shortness of breath, bleeding, nausea or vomiting, chestpain, or any unexpected problems, contact your Primary Care Provider. Call [facility] ([phone]) or report to the closest Emergency Room. Call 911 if necessary. 04/23/222225 <Electronically signed by Fam Cha MD> Cosigner Signature (if applicable): CC: EVELYN Nicholson ~ Signed [facility] Work Phone: [phone]) 225-691104-07-2022 History of Present illness Narrative* Stacy Nicholson PA-C - 06/28/2021 4:20 PM EDT 25 year old male with c/o Heroin abuse (hcc Was in [facility] for detox, then to rehab Just discharged from rehab Recovery [facility] 16 days Silver Mist 30 days Last [...] of Face Generalized Anxiety Disorder Heroin Abuse ([facility]) Current Outpatient Medications Medication Sig Dispense Refill [...] months. Stacy Nicholson PA-C [facility] Hospital[facility] Author Dr. Hernandez [facility] April 25, 2022 12:13pm Note Date/Time April 25, 2022 1 2:12pm [facility] Medical Records Department [address] [place] [address] Instructions for Home/Discharge Instructions 04/25/22 1211 MR#: [id number] Acct: [id number] Name: BRYAN LUNDBERG Rep #:[id number] : [...] Nicholson; Dr. Tory Chirinos MD ~ Signed [facility] Work Phone: Evaluation note* Diagnosis Adjustment disorder with mixed anxiety and depressed mood- Primary Generalized anxiety disorder Heroin abuse (HCC) Opioid abuse, unspecified Mild intermittent asthma with acute exacerbation Unspecified asthma, with exacerbation Herpetic lesions of face Herpes simplex without mention of complication documented in this encounter [facility] Hospital[facility] noteNo assessment information availableWFostoria City [facility] Work Phone: Evaluation note* Diagnosis Onset Date Resolution Status Abdominal pain, vomiting, and diarrhea acute Acute opioid withdrawal acut e Acute prerenal azotemia acut e Cannabis abuse acute Ketosis acute Opiate addiction acute Polysubstance (including opi oids) dependence with physiol dependence acute Sinus tachycardia acute [facility] Work Phone: Evaluation note* Diagnosis Onset Date Resolution Status Desire for detoxification ac [place] Mild dehydration acute Opiate addiction acute Tobacco abuse acute [facility] Work Phone: Evaluation note* Diagnosis Heroin abuse (HCC)- Primary Opioid abuse, unspecified Generalized anxiety disorder [facility]* Diagnosis Pain, dental- Primary Unspecified disorder of the teeth and supporting structures documented in this encounter [facility] HospitalHistory and physical note [facility] April 23, 2022 10:52pm Note Date/Time April 23, 2022 1 0:26pm [facility] Medical Records Department [address] [place] [address] H&P Exam - Hospitalist 04/23/22 2226 MR#: [id number] Acct: [id number] Name: BRYAN LUNDBERG Rep #:[id number] : 1995 26 From: Tory Chirinos MD PCP: EVELYN Phan Status:ADM I N Location: [place] [address] HPI - General General Date of Admission: [...] was positive for amphetamines, ecstasy and cannabinoids. [facility] Medical History Asthma Tobacco abuse Home Medications [...] Clarity Clear, Urine pH 6.0, Ur Specific [place] 1.025, Urine Protein 100 H, Urine Glucose [...] 2 days prior to admission Admit to [facility], start on Subutex withdrawal protocol 2. Polysubstance use, advised to quit 3. Acute kidney injury, patient with admitting creatinine 1.3, previous creatinine 0.77 Patient received IV fluids in the ED; will encourage liberal oral intake Will trend labs in a.m. 4. DVT PPx- Low risk; early ambulation recommended Charges/Coding Visit Charges Inpatient E&M: 79521 Init Hosp L2 04/23/22 0927 <Electronically signed by Tory Chirinos MD> Cosigner Signature (if applicable): CC: EVELYN Nicholson; Dr. Tory Chirinos MD~ Signed [facility] Work Phone: Chief Complaint and Reason [...] Will No February 19 8:37pm Power of Cardiac Monitor No February 19, 2022 8:37pm Advance Directive Response Recorded Date/ Time Living Will No March 02 8:03am Power of Cardiac Monitor No March 02, 2022 8:03am Advance Directive Response Recorded Date/ Time Living Will No April 23 7:44pm Power of Cardiac Monitor No April 23, 2022 7:44pm Advance Directive Response Recorded Date/ Time Living Will No April 23 11:52pm Power of Cardiac Monitor No April 23, 2022 11:52pm Advance Directive Response Recorded Date/ Time Living Will No May 01 10:24pm Power of Cardiac Monitor No May 01, 2022 10:24pm Advance Directive Response Recorded Date/ Time Living Will No September 14, 2022 11:39pm Power of Cardiac Monitor No September 14 11:39pm Summary Purpose Additional Source Comments Source Comments (unrecognize d section and content) In the event this informatio n is protected by the Federal Confidentiality of Alcohol and Drug Abuse Patient Records regulations: The Federal rules restrict any use of the information to criminally investigate or prosecute any alcohol or drug abuse patient.[facility] HospitalIn the event this information is protected by the Federal Confidentiality of Alcohol and Drug Abuse Patient Records regulations: The Federal rules restrict any use of the information to criminally investigate or prosecute any alcohol or drug abuse patient.[facility] HospitalIn the event this information is protected by the Federal Confidentiality of Alcohol and Drug Abuse Patient Records regulations: The Federal rules restrict any use of the information to criminally investigate or prosecute any alcohol or drug abuse patient.[facility] Reason for Visit (unrecogniz ed section and content) Reason Comments Follow Up patient is here for medication follow up Reason Comments Anxiety Reason Comments Dental Problem Right side, swelling pain, abscess tooth x 3 days Care Teams (unrecognized sec tion and content) Warble Saw Operator Relationship Specialty Start Date End Date Stacy Nicholson PA-C [address] [place] [address] PCP - General Family Practice 09/23/18 Team [...] Dr. Arnol Somers DO Attending Provider Active Warble Saw Operator Relationship Specialty Start Date End Date Stacy Nicholson PA-C [address] [place] [address] PCP - General Family Medicine 09/23/18 Warble Saw Operator Relationship Specialty Start Date End Date Stacy Nicholson PA-C [address] [place] [address] PCP - General Family Medicine 09/23/18 Goals [...] section and content) DATE CREATED AUTHOR 12/30/2022 [facility] DATE CREATED AUTHOR AUTHOR'S ORGANIZ ATION 05/04/2023 [facility] FOR RECORDS PERTAINING TO PATIENTS WHO ARE [...] BE BASED ON THE PRIMARY CLINICAL RECORDS. [facility] [employer] [facility]. provides no warranty or guarantee of the accuracy or completeness of information in this document.
[2025-03-02 20:04] LABS: Anion Gap 9 (5-15); BUN 35 mg/dL (4-19); BUN/Creat Ratio 40.2 RATIO (10-20); Calcium,Total 8.8 mg/dL (7.6-11.0); Carbon Dioxide 30.0 mmol/L (21.0-32.0); Chloride 98 mmol/L (98-108); Estimated Creatinine Clearance 133.82 ml/min (50-250); Glucose 138 mg/dL (70-99); Potassium 3.9 mmol/L (3.3-5.1)
[2025-03-02 20:06] LABS: Alcohol, Blood (Medical)-Serum < 10.1 mg/dL (<=10.0)
[2025-03-02 20:09] LABS: Barbiturate Urine NEGATIVE (< 200 ng/mL); Benzodiazepine Urine NEGATIVE (< 200 ng/mL); PCP Urine NEGATIVE (< 25 ng/mL); THC Urine PRESUMPTIVE POSITIVE (< 50 ng/mL)
[2025-03-02 20:30] VITALS: BP 117/68; PULSE 62; RESP 18; TEMP 36.4; O2SAT 99
[2025-03-02 20:32] VITALS: BMI 21.2
[2025-03-02 20:45] LABS: AST(SGOT) 56 U/L (<=37); Alanine Aminotransfer ALT/SGPT 26 U/L (<=46); Albumin, Serum 4.3 g/dL (3.5-5.0); Alkaline Phosphatase 65 U/L (40-129); Bilirubin, Direct 0.29 mg/dL (0.00-0.30); Globulin 2.2 g/dL (2.2-4.2)
[2025-03-02] MEDS: Nicotine (PBKC) 21 MG Patch TD (20:55)
[2025-03-02 22:15] LABS: HIV Nonreactive (Nonreactive); Hepatitis B Surface Antigen Nonreactive (Nonreactive); Hepatitis C Antibody Nonreactive (Nonreactive); Syphilis Antibodies Nonreactive (Nonreactive)
[2025-03-03 03:33] VITALS: BP 139/81; PULSE 82; RESP 16; TEMP 36.4; O2SAT 100
--- NOTE | 2025-03-03 07:58 | PN.HOSP_ITS ---
Reason for Visit Chief Complaint: Opiate withdrawal Subjective Subjective Complaining of abdominal pain. Denies diarrhea. Objective Data Objective Data Vital Signs: Vital Signs Temp Pulse Resp BP Pulse Ox O2 Del Method 36.4 C L 82 16 139/81 H 100 Room Air 03/03/25 03:33 03/03/25 03:33 03/03/25 03:33 03/03/25 03:33 03/03/25 03:33 03/03/25 03:33 Oxygen Delivery Method Room Air Weight: 74.9 kg Body Mass Index (BMI) 21.2 Intake & Output: Intake and Output for Last 24 Hours 03/01/25 03/02/25 03/03/25 23:59 23:59 23:59 Intake Total 800 / 800 Balance 800 / 800 Lab / Micro Data 03/02/25 19:03 03/02/25 19:03 Labs: Laboratory Results - last 24 hr 03/02/25 19:03: WBC 11.5 H, RBC 4.55 L, Hgb 12.8 L, Hct 37.8 L, MCV 83.1, MCH 28.1, MCHC 33.9, RDW Std Deviation 40.3, RDW Coeff of Cecilio 13.2, Plt Count 299, MPV 9.4, Immature Gran % (Auto) 0.300, Neut % (Auto) 64.5, Lymph % (Auto) 26.6, [place] % (Auto) 6.9, Eos % (Auto) 1.4, Baso % (Auto) 0.3, Absolute Neuts (auto) 7.4, Absolute Lymphs (auto) 3.05, Nucleated RBC % 0, Sodium 137, Potassium 3.9, Chloride 98, Carbon Dioxide 30.0, Anion Gap 9, BUN 35 H, Creatinine 0.88, Estim Creat Clear Calc 133.82, Est GFR (MDRD) Non-Af 119, BUN/Creatinine Ratio 40.2 H, Glucose 138 H, Calcium 8.8, Total Bilirubin 0.61, Direct Bilirubin 0.29, AST 56 H, ALT 26, Alkaline Phosphatase 65, Total Protein 6.5, Albumin 4.3, Globulin 2.2, Urine Opiates Screen NEGATIVE, U Buprenorphine Qual NEGATIVE, Ur Oxycodone Screen NEGATIVE, Urine Methadone Screen NEGATIVE, Urine Fentanyl Screen PRESUMPTIVE POSITIVE, Ur Barbiturates Screen NEGATIVE, Ur Phencyclidine Scrn NEGATIVE, Ur Amphetamines Screen NEGATIVE, U Benzodiazepines Scrn NEGATIVE, Urine Cocaine Screen PRESUMPTIVE POSITIVE, U Cannabinoids Screen PRESUMPTIVE POSITIVE, Ethyl Alcohol < 10.1 03/02/25 21:10: Syphilis Total Ab Nonreactive, Hep Bs Antigen Nonreactive, Hep Bs Antibody Nonreactive, Hepatitis C Antibody Nonreactive, HIV 1&2 Antibody Nonreactive Physical Exam Const alert and no apparent distress HEENT head/scalp atraumatic and moist oral mucous membranes Resp normal respiratory effort, no retractions, no use of accessory muscles and clear to auscultation bilaterally Cardio regular rate, regular rhythm, S1 normal heart sound and S2 normal heart sound GI normal to inspection, nondistended, normoactive bowel sounds and soft to palpation GI Narrative: Slight epigastric abdominal pain. Extremity normal to inspection and full ROM Neuro Sensorium / Orientation: awake and alert Assessment & Plan Assessment/Plan (1) Opiate withdrawal: PLAN: Plan Acute Opiate Withdrawal: * on buprenorphine taper * addiction medicine to see to facilitate outpt treatment modality Chronic medical conditions: * Polysubstance Abuse: HIV, acute hep profile, Syphilis negative * Tobacco Abuse: Encouraged cessation, inpatient consultation per RT, NR if desired. * Chronic asthma: Per current list patient is not on a medication, encouraged tobacco and cannabis cessation, will have as needed albuterol. * Chart reported history of seizure disorder: Unclear situation, potentially drug-related, not on any antiepileptic medication, encourage follow-up outpatient as previously arranged. DVT prophylaxis: Low risk for type of presentation, encourage ambulation. Charges/Coding Visit Charges Inpatient E&M: 04596 Subs Hosp L1
[2025-03-03 09:32] VITALS: BP 158/104; PULSE 63; RESP 16; TEMP 36.5; O2SAT 99
[2025-03-03] MEDS: Nicotine (PBKC) 21 MG Patch TD (09:42)
[2025-03-03] MEDS: hydrOXYzine PAM 25 MG Capsule 50 MG PO ×2 (09:42→15:25)
--- NOTE | 2025-03-03 11:24 | ADDICTION ---
Patient is currently experiencing acute opioid withdrawal symptoms, specifically active vomiting likely related to fentanyl cessation. Due to the severity of withdrawal and associated physical distress, assessment and therapeutic engagement are deferred until the patient is clinically stabilized and able to participate meaningfully. This approach prioritizes patient safety, comfort, and ensures accuracy in assessment, consistent with best practices for withdrawal management and patient-centered care.
[2025-03-03 12:40] VITALS: BP 165/96; PULSE 68; RESP 18; TEMP 36.8; O2SAT 98
--- NOTE | 2025-03-03 12:56 | CHAPLAIN ---
Type of Pastoral Visit _x__ Initial Visit ___ Follow-up Visit ___ On-call Visit ___ General Patient Visit ___ Spiritual Assessment ___ Family Conference ___ Bereavement ___ Rapid Response ___ Code Blue ___ Other (describe below) Pastoral Care Referral From _x__ Patient ___ Family ___ Nurse ___ Physician ___ Rn Recovery ___ Rail Filler ___ Other (describe below) Sacrament/Intervention ___ Active listening ___ Anointing ___ Cheondoism ___ Bereavement ___ Communion ___ Maryam exploration ___ ___ Life review ___ Prayer ___ Reconciliation ___ Sacrament of Sick ___ Supportive presence ___ Wedding ___ Other (describe below) Pastoral Comments greeting to patient with offer of support; pt welcomes presence but since he is feeling very sick he would like a visit at a later time
[2025-03-03 20:10] VITALS: BP 142/77; PULSE 65; RESP 16; TEMP 36.9; O2SAT 99
[2025-03-04 03:38] VITALS: BP 139/97; PULSE 74; RESP 16; TEMP 36.4; O2SAT 94
--- NOTE | 2025-03-04 07:47 | PN.HOSP_ITS ---
Reason for Visit Chief Complaint: Opiate withdrawal Objective Data Objective Data Vital Signs: Vital Signs Temp Pulse Resp BP Pulse Ox O2 Del Method 36.4 C L 74 16 139/97 H 94 Room Air 03/04/25 03:38 03/04/25 03:38 03/04/25 03:38 03/04/25 03:38 03/04/25 03:38 03/04/25 07:44 Oxygen Delivery Method Room Air Weight: 74.9 kg Body Mass Index (BMI) 21.2 Intake & Output: Intake and Output for Last 24 Hours 03/02/25 03/03/25 03/04/25 23:59 23:59 23:59 Intake Total 1600 / 1800 350 / 350 Balance 1600 / 1800 350 / 350 Lab / Micro Data 03/02/25 19:03 03/02/25 19:03 Assessment & Plan Assessment/Plan (1) Opiate withdrawal: PLAN: Plan Acute Opiate Withdrawal: * on buprenorphine taper * addiction medicine to see to facilitate outpt treatment modality Chronic medical conditions: * Polysubstance Abuse: HIV, acute hep profile, Syphilis negative * Tobacco Abuse: Encouraged cessation, inpatient consultation per RT, NR if desired. * Chronic asthma: Per current list patient is not on a medication, encouraged tobacco and cannabis cessation, will have as needed albuterol. * Chart reported history of seizure disorder: Unclear situation, potentially drug-related, not on any antiepileptic medication, encourage follow-up outpatient as previously arranged. DVT prophylaxis: Low risk for type of presentation, encourage ambulation.
--- NOTE | 2025-03-04 07:47 | PCM.PN.HOSP ---
Reason for Visit Chief Complaint: Opiate withdrawal Subjective Subjective Feeling much better today. Tolerating diet. Objective Data Objective Data Vital Signs: Vital Signs Temp Pulse Resp BP Pulse Ox O2 Del Method 36.4 C L 74 16 139/97 H 94 Room Air 03/04/25 03:38 03/04/25 03:38 03/04/25 03:38 03/04/25 03:38 03/04/25 03:38 03/04/25 07:44 Oxygen Delivery Method Room Air Weight: 74.9 kg Body Mass Index (BMI) 21.2 Intake & Output: Intake and Output for Last 24 Hours 03/02/25 03/03/25 03/04/25 23:59 23:59 23:59 Intake Total 1600 / 1800 350 / 350 Balance 1600 / 1800 350 / 350 Lab / Micro Data 03/02/25 19:03 03/02/25 19:03 Physical Exam Const Constitutional Narrative: Up ambulating in his room. Afebrile. Actually making his bed while in the room. Nontoxic. Assessment & Plan Assessment/Plan (1) Opiate withdrawal: PLAN: Plan Acute Opiate Withdrawal: Clinically improving but will continue with on buprenorphine taper for 1 more day. Patient continues to do well with anticipation of patient to be discharged on the . addiction medicine to see to facilitate outpt treatment modality Chronic medical conditions: Polysubstance Abuse: HIV, acute hep profile, Syphilis negative Tobacco Abuse: Encouraged cessation, inpatient consultation per RT, NR if desired. Chronic asthma: Per current list patient is not on a medication, encouraged tobacco and cannabis cessation, will have as needed albuterol. Chart reported history of seizure disorder: Unclear situation, potentially drug-related, not on any antiepileptic medication, encourage follow-up outpatient as previously arranged. DVT prophylaxis: Low risk for type of presentation, encourage ambulation. Charges/Coding Visit Charges Inpatient E&M: 16147 Subs Hosp L1
[2025-03-04 08:41] VITALS: BP 154/103; PULSE 67; RESP 20; TEMP 36.4; O2SAT 100
[2025-03-04 14:50] VITALS: BP 145/101; PULSE 73; RESP 18; TEMP 36.9; O2SAT 99
--- NOTE | 2025-03-04 15:41 | NURSING ---
Jhonny w/the recovery unit in talking w/pt
--- NOTE | 2025-03-04 15:45 | ADDICTION ---
Met with patient to complete RAMP assessments. Patient reports intranasal use of approximately one gram of fentanyl daily, with last use occurring at approximately 6:00 AM yesterday. He denies any intravenous drug use. Patient was previously admitted for opioid detoxification in 2022 and left against medical advice. During the current assessment, patient appeared groggy but was able to respond appropriately to questions. He states an intention to follow up with AA/NA meetings and is agreeable to the recommendation of intensive outpatient treatment. he agreed to come to [facility] on Friday morning for a Walk-in assessment.
--- NOTE | 2025-03-04 15:47 | CHAPLAIN ---
Type of Pastoral Visit _x__ Initial Visit ___ Follow-up Visit ___ On-call Visit ___ General Patient Visit ___ Spiritual Assessment ___ Family Conference ___ Bereavement ___ Rapid Response ___ Code Blue ___ Other (describe below) Pastoral Care Referral From _x__ Patient ___ Family ___ Nurse ___ Physician ___ Tearoom Hostess ___ Micro Paleontologist ___ Other (describe below) Sacrament/Intervention _x__ Active listening ___ Anointing ___ Sikh ___ Bereavement ___ Communion _x__ Maryam exploration ___ _x__ Life review _x__ Prayer ___ Reconciliation ___ Sacrament of Sick _x__ Supportive presence ___ Wedding ___ Other (describe below) Pastoral Comments
[2025-03-04 21:22] VITALS: BP 153/84; PULSE 68; RESP 16; TEMP 37; O2SAT 98
[2025-03-04] MEDS: hydrOXYzine PAM 25 MG Capsule 50 MG PO (21:25)
[2025-03-05 02:18] VITALS: BP 171/101; PULSE 99; RESP 16; TEMP 37.1; O2SAT 92
[2025-03-05 04:48] VITALS: BP 150/95; PULSE 86; RESP 16; TEMP 36.7; O2SAT 97
[2025-03-05 07:24] VITALS: O2SAT 96
--- NOTE | 2025-03-05 09:23 | DS.PCM_ITS ---
Providers Date of Admission: 03/02/25 Primary Care Physician: NEHA Hameed Reason For Visit: OPIATE WITHDRAWAL Diagnosis Discharge Diagnosis (1) Opiate withdrawal: Status: Acute Code(s): F11.93 - Opioid use, unspecified with withdrawal Plan Acute Opiate Withdrawal: * Clinically improving but will continue with on buprenorphine taper for 1 more day. Patient continues to do well with anticipation of patient to be discharged on the . * Patient to follow up with [facility]. Chronic medical conditions: * Polysubstance Abuse: HIV, acute hep profile, Syphilis negative * Tobacco Abuse: Encouraged cessation, inpatient consultation per RT, NR if desired. * Chronic asthma: Per current list patient is not on a medication, encouraged tobacco and cannabis cessation, will have as needed albuterol. * Chart reported history of seizure disorder: Unclear situation, potentially drug-related, not on any antiepileptic medication, encourage follow-up outpatient as previously arranged. DVT prophylaxis: Low risk for type of presentation, encourage ambulation. Medications at Discharge Home Medications NK 12/27/22 Hospital Course Operations None Procedures None Summary of Care Provided Hospital Course: Patient presents with acute opiate withdrawal. Patient was on buprenorphine taper. His course was uncomplicated. Patient will follow-up with [facility]. Weight / BMI Weight Weight: 74.9 kg Body Mass Index (BMI) 21.2 ABG / Lab / Microbiology Data 03/02/25 19:03 03/02/25 19:03 D/C Instructions DC O2, CPAP, BIPAP Needs Home O2 Discharge instructions: No Meaningful Use Info Meaningful Use Meaningful Use Diagnoses (Choose all that apply): None applicable Discharge Plan Admission Admit Date/Time: 03/02/25 19:28 Primary Reason for Your Visit: Opiate withdrawal Attending Provider: Mark Garcia Primary Care Provider: Mylene Crawford NP Consulting Providers: Blanca Stacy Instructions Additional Instructions / Restrictions: Follow up with [facility]. Discharge Orders/Prescriptions Prescriptions: Continued NK Referrals / Follow Up: Mylene Crawford NP, [employer] [Primary Care Provider, Medical] Stacy Gomez PA [Non-Staff, Medical] Disposition Disposition (needs filled in before D/C Order can be placed): Home, Self Care Charges/Coding Visit Charges Inpatient E&M: 16191 Disch Hosp
[2025-03-05 10:48] VITALS: BP 144/70; PULSE 82; RESP 17; TEMP 36.8; O2SAT 98
== END 2025-03-05 11:40 | disposition home or self-care (01) | DRG 773 ==
LOC: ED 19:13 → MS3 19:49
PROVIDERS: Admitting Provider Family Medicine; Emergency Provider Emergency Medicine; PCP Registered Nurse
DX: F11.23 Opioid dependence with withdrawal (principal); F17.210 Nicotine dependence, cigarettes, uncomplicated; J45.909 Unspecified asthma, uncomplicated
CPT/HCPCS: 36415; 80048; 80076; 80307; 82077; 85025; 86703; 86706; 86780; 86803; 87340; 99283; 99406